=== PATIENT | female | born 1975 | race Caucasian/White ===

== ENCOUNTER 2022-11-04 08:14 | Outpatient (CLI) | payer OTHER, SELFPAY ==
--- NOTE | ~2022-11-04 | MM_ITS ---
EXAMINATION: MM screening cherelle BI w oral HISTORY: Screening mammogram TECHNIQUE: Craniocaudal and mediolateral oblique 3-D tomosynthesis images were obtained and synthetic 2-D images were generated. CAD analysis was submitted and interpreted. COMPARISON: No prior mammogram is available for comparison at this institution. BREAST PARENCHYMAL COMPOSITION: There are scattered areas of fibroglandular density. FINDINGS: RIGHT BREAST: There is a 4 mm mass in the middle third of the lower inner breast. An asymmetry is pre sent in the middle third of the lower breast on the mediolateral oblique view. LEFT BREAST: There is focal asymmetry in the anterior third of the lower breast. Asymmetry is also no bina in the middle third of the upper breast on the mediolateral oblique view. IMPRESSION: 1. Bilateral breast findings as above which may represent the patient's baseline however no compariso n is currently available. 2. Comparison with prior mammograms is necessary. BI-RADS Category 0: Incomplete: Needs comparison with prior mammograms. Reviewed, dictated and finalized at location A. IMPRESSION: 1. Bilateral breast findings as above which may represent the patient's baselin e however no comparison is currently available. 2. Comparison with prior mammograms is necessary. BI-RADS Category 0: Incomplete: Needs comparison with prior mammograms.
== END 2022-11-04 08:15 | disposition home or self-care (01) ==
LOC: ANHIMG 08:18
PROVIDERS: PCP Internal Medicine; Visit Provider Advanced Practice Midwife
DX: Z12.31 Encounter for screening mammogram for malignant neoplasm of breast (principal); R92.8 Other abnormal and inconclusive findings on diagnostic imaging of breast
CPT/HCPCS: 77063; 77067

== ENCOUNTER 2023-01-29 12:43 | Emergency (ER) | payer OTHER, SELFPAY ==
[2023-01-29] VITALS (13 sets, daily range): BP systolic 143–196; BP diastolic 87–125; PULSE 94–115; RESP 10–21; TEMP 36.8; O2SAT 94–100
--- NOTE | 2023-01-29 12:47 | ED.EPISTAXIS ---
HPI - Epistaxis General Chief complaint: Epistaxis Stated complaint: nose bleed, htn Time Seen by Provider: 01/29/23 12:46 History of Present Illness HPI Narrative: Patient is a 48-year-old female with history of thyroid disease, hyperlipidemia here with no straight and high blood pressure. She states she has had several nosebleeds in the past but usually self resolved after holding pressure for about 5 minutes. She states today approximately 1 hour prior to arrival to the emergency department she began having a nosebleed on the right side after blowing her nose. She held pressure and it did not stop so an ambulance was called. EN route they placed a clamp and put TXA in bilateral nares with improvement of bleeding. Of note she was quite hypertensive EN route with systolic blood pressure greater than 200. She denies history of hypertension. She has never required packing in this nares. Bleeding did begin on the right side. She notes since having COVID in 2020 she has always felt a foreign body sensation in right naris and does occasionally use a Q-tip to try to reach this foreign body sensation in her nose. No blood thinner use, no antihypertensive use. No trauma. No light headedness or shortness of breath. MD complaint: epistaxis Location: right nostril Onset (ago): hour(s) Duration: constant Treatment prior to arrival: nose pinching, head leaned forward, nasal clamp and other (txa) Related Data Home Medications Medication Instructions Recorded Confirmed cetirizine 10 mg tablet (Zyrtec) 10 mg PO DAILY PRN 08/19/22 09/23/22 fluticasone propionate 50 1 spray intranasal DAILY 08/19/22 09/23/22 mcg/actuation nasal spray,suspension (Flonase Allergy Relief) levothyroxine 75 mcg tablet 75 mcg PO DAILY 08/19/22 09/23/22 Allergies Allergy/AdvReac Type Severity Reaction Status Date / Time No Known Allergies Allergy Verified 09/23/22 10:54 Review of Systems Review of Systems: CONSTITUTIONAL: Denies fever, chills, or sweats. EYES: Denies visual changes, redness, or discharge. ENT: nose bleed on right side, no sore throat, or otalgia. CARDIOVASCULAR: Denies chest pain, palpitations, or edema. RESPIRATORY: Denies cough or dyspnea. GASTROINTESTINAL: Denies abdominal pain, nausea, vomiting, or diarrhea. GENITOURINARY: Denies dysuria or hematuria. SKIN: Denies rash or itching. MUSCULOSKELETAL: Denies back pain, joint pain, or myalgia. NEUROLOGIC: Denies headache, numbness, or weakness. PSYCHIATRIC: Denies anxiety or depression. [facility] Past Medical History Medical History Allergies Hypothyroidism (acquired) Surgical History Surgical History History of Family History Family History Father Diabetes mellitus Hypertension Mother Cerebrovascular accident Social History Social History Smoking status: Never smoker Second hand tobacco smoke exposure: No Alcohol intake: never Substance use: never Lack of Transportation: No Lack of Food: Never True Current Housing: I Have Housing Concerned About Future Housing: No Difficulty Paying Gas/Electric Bills: No Difficulty Paying for Meds: No Currently Unemployed: No Education: High School Diploma/GED Difficulty w/ Childcare or Family Care: No Exam Narrative: GENERAL: Well-appearing, well-nourished, and in no acute distress. HEAD: Normocephalic, atraumatic. EYES: PERRLA and EOMI. ENT: clots present in right nares, faint active bleeding down posterior pharynx. Mucous membranes moist. NECK: Supple. CHEST: Clear to auscultation. No respiratory distress. HEART: Regular rate and rhythm. No murmur heard. Normal peripheral pulses. ABDOMEN: Soft, nontender, nondistended, normal active bowel soun
[2023-01-29] MEDS: LIDOCAINE, EPINEPHRINE, TETRACAINE VISCOUS SOLN 3 ML TOPICAL (13:30)
[2023-01-29] MEDS: OXYMETAZOLINE HCL 0.05% NAS 15 ML BTL (*BKC) 1 SPRAY NASAL (13:30)
[2023-01-29 13:55] LABS: Basophils Absolute Auto 0.1 K/mm3 (0.0-0.1); Basophils Percent Auto 0.6 % (0.2-1.2); Eosinophils Absolute Auto 0.3 K/mm3 (0-0.3); Eosinophils Percent Auto 3.3 % (0-4.4); Hematocrit 38.3 % (37.0-47.0); Hemoglobin 12.4 g/dL (12.0-15.0); Immature Granulocyte Absolute 0.03 K/mm3 (0.00-0.031); Immature Granulocyte Percent A 0.3 % (0-0.5); Lymphocytes Absolute Auto 1.38 K/mm3 (0.9-3.2); Lymphocytes Percent Auto 15.9 % (18.3-44.2); Mean Corpuscular HGB Conc 32.4 g/dl (32-36); Mean Corpuscular Hemoglobin 30.4 pg (26-34); Mean Corpuscular Volume 93.9 fl (80-100); Mean Platelet Volume 12.4 fl (7.4-10.4); Monocytes Absolute Auto 0.4 K/mm3 (0.1-0.6); Monocytes Percent Auto 4.5 % (2.6-8.5); Neutrophils Absolute Auto 6.5 K/mm3 (1.3-6.7); Neutrophils Percent Auto 75.4 % (45.5-73.1); Platelet Count Result 208 k/mm3 (150-375); Red Blood Count 4.08 M/mm3 (4.2-5.4); Red Cell Distribution Width 13.9 % (11.5-14.5); White Blood Count 8.7 K/mm3 (4.5-10.0)
[2023-01-29 14:08] LABS: Alanine Aminotransferase 24 U/L (6-35); Alkaline Phosphatase 96 U/L (38-126); Anion Gap 7 mmol/L (8-16); Aspartate Amino Transferase 26 U/L (14-36); Bilirubin,Total 0.3 mg/dL (0.2-1.3); Blood Urea Nitrogen 13 mg/dL (7-17); Calcium 8.8 mg/dL (8.4-10.2); Carbon Dioxide 24 mmol/L (22-30); Chloride 104 mmol/L (98-107); Estimated Glomerular Filt Rate > 60; Glucose 240 mg/dL (65-110); Potassium 3.8 mmol/L (3.4-5.0); Sodium 135 mmol/L (137-145)
[2023-01-29] MEDS: ONDANSETRON INJ 4 MG/2 ML VIAL IV PUSH (14:52)
[2023-01-29] MEDS: MORPHINE SULFATE (*CRX) 4 MG/ML INJ IV PUSH (14:52)
[2023-01-29] MEDS: LABETALOL HCL INJ 100 MG/20 ML VIAL 10 MG IV PUSH (15:27)
--- NOTE | 2023-01-29 15:44 | WPDCN ---
Assessment and Plan Assessment and plan (1) Right-sided epistaxis: Code(s): R04.0 - Epistaxis Status: Acute Plan afrin bid to tid until follow up. Follow up early next week, wednesday is good. No strenuous activity, nasal saline spray 4-6 times per day. No right side nose blowing. novapak placed as well. HPI Data of Consult Date/Time: 01/29/23 15:44 Primary Care Provider: Eyad Roca DO Consult Narrative Narrative: Shaina Huynh is a 48 year old female with epistaxis. Review of Systems Review of Systems: All systems reviewed & are unremarkable except as noted in HPI and below PMFSH Past Medical History Medical History Allergies Hypothyroidism (acquired) Surgical History Surgical History History of Family History Family History Father Diabetes mellitus Hypertension Mother Cerebrovascular accident Social History Social History Smoking status: Never smoker Second hand tobacco smoke exposure: No Alcohol intake: never Substance use: never Lack of Transportation: No Lack of Food: Never True Current Housing: I Have Housing Concerned About Future Housing: No Difficulty Paying Gas/Electric Bills: No Difficulty Paying for Meds: No Currently Unemployed: No Education: High School Diploma/GED Difficulty w/ Childcare or Family Care: No Meds Home Medications and Allergies Home Medications Medication Instructions Recorded Confirmed Type cetirizine 10 mg tablet (Zyrtec) 10 mg PO DAILY PRN 08/19/22 09/23/22 History fluticasone propionate 50 1 spray intranasal DAILY 08/19/22 09/23/22 History mcg/actuation nasal spray,suspension (Flonase Allergy Relief) levothyroxine 75 mcg tablet 75 mcg PO DAILY 08/19/22 09/23/22 History metformin 500 mg tablet 500 mg PO BID #180 tabs 08/19/22 09/23/22 Rx atorvastatin 10 mg tablet 10 mg PO QHS #90 tabs 09/23/22 09/23/22 Rx cholecalciferol (vitamin D3) 50 50 mcg PO DAILY #90 caps 09/23/22 09/23/22 Rx mcg (2,000 unit) capsule Allergies Allergy/AdvReac Type Severity Reaction Status Date / Time No Known Allergies Allergy Verified 09/23/22 10:54 Vital Signs Vital Signs - 24 hr 01/29/23 12:54 01/29/23 13:01 01/29/23 13:47 Temperature 36.8 C 36.8 C Pulse Rate 106 H 106 H Respiratory Rate 16 Blood Pressure 167/108 H 196/113 H Pulse Oximetry 98 97 98 Oxygen Delivery Room Air 01/29/23 14:00 01/29/23 14:15 01/29/23 14:30 Temperature Pulse Rate Respiratory Rate Blood Pressure Pulse Oximetry 98 97 98 Oxygen Delivery 01/29/23 14:45 01/29/23 14:56 01/29/23 15:16 Temperature Pulse Rate 115 H 105 H Respiratory Rate 20 17 Blood Pressure 194/125 H Pulse Oximetry 99 99 96 Oxygen Delivery 01/29/23 15:18 01/29/23 15:24 Temperature Pulse Rate 105 H 107 H Respiratory Rate 10 L 21 H Blood Pressure 181/111 H 163/98 H Pulse Oximetry 98 94 Oxygen Delivery Exam Narrative: balloon removed, bleeding vessel controlled with cautery, about 2cm back low septum right side, see procedure note. Results Labs 01/29/23 13:44 01/29/23 13:44 Labs: Short CBC 01/29/23 Range/Units 13:44 WBC 8.7 (4.5-10.0) K/mm3 Hgb 12.4 (12.0-15.0) g/dL Hct 38.3 (37.0-47.0) % Plt Count 208 (150-375) k/mm3 BMP 01/29/23 13:44 Sodium 135 L Potassium 3.8 Chloride 104 Carbon Dioxide 24 BUN 13 Creatinine 0.60 L Glucose 240 H Calcium 8.8 Liver Function 01/29/23 Range/Units 13:44 Total Bilirubin 0.3 (0.2-1.3) mg/dL AST 26 (14-36) U/L ALT 24 (6-35) U/L Alkaline Phosphatase 96 (38-126) U/L Albumin 4.0 (3.5-5.1) g/dL
--- NOTE | 2023-01-29 15:44 | WPDPROCEDUR ---
Procedures Epistaxis Control Time out performed: Yes Nostril: right Nose prepped with: lidocaine and oxymetazoline Direct inspection: yes Clots removed by: suction Cautery used: silver nitrate Patient tolerated procedure: well Epistaxis Comment: complex cautery multiple rounds of cautery and packing. No bleeding following procedure
--- NOTE | 2023-01-29 16:33 | PC.NURSE ---
DC instructions reviewed with pt and she voiced positive understanding regarding RXs, DC and f/u. No active bleeding at this time.
== END 2023-01-29 17:00 | disposition home or self-care (01) ==
PROVIDERS: Emergency Provider Student in an Organized Health Care Education/Training Program; PCP Internal Medicine
DX: R04.0 Epistaxis (principal); I10 Essential (primary) hypertension; E03.9 Hypothyroidism, unspecified; E78.5 Hyperlipidemia, unspecified; Z86.16 Personal history of COVID-19
CPT/HCPCS: 30903; 36415; 80053; 85025; 96374; 96375; 99284; A9270; J2270; J2405

== ENCOUNTER 2023-02-11 12:19 | Outpatient (CLI) | payer OTHER, SELFPAY ==
--- NOTE | ~2023-02-11 | MMUS_ITS ---
EXAMINATION: MM diagnostic cherelle BI w oral, US breast RT limited, US breast LT complete HISTORY: Follow-up bilateral breast asymmetries TECHNIQUE: Additional 3-D tomosynthesis images of the breasts were performed and synthetic 2-D images were generated. CAD analysis was submitted and interpreted. High resolution Limited right and comple te left breast ultrasound was performed. COMPARISON: Comparison to multiple prior studies sequentially, with oldest reviewed study dated 11/25 BREAST PARENCHYMAL COMPOSITION: Breast composed of scattered areas of fibroglandular density FINDINGS: MAMMOGRAPHIC FINDINGS: There are is a small mass in the lower inner quadrant of the right breast. Focal asymmetry in the lef t breast is less dense with spot compression views. No discrete mass or architectural distortion iden tified. ULTRASOUND: Complete US of all 4 quadrants of the left breast and retroareolar region and limited right breast ul trasound was reviewed. Normal heterogeneous echotexture without solid or cystic mass. IMPRESSION: 1. Probable benign mass lower inner quadrant of the right breast without sonographic correlate. No ev idence for malignancy in the left breast. 2. Recommend 6 month follow-up diagnostic right mammogram BI-RADS category 3, probably benign findings. Reviewed, dictated and finalized at location A. IMPRESSION: 1. Probable benign mass lower inner quadrant of the right breast without sonogr aphic correlate. No evidence for malignancy in the left breast. 2. Recommend 6 month follow-up diagnostic right mammogram BI-RADS category 3, probably benign findings. IMPRESSION: 1. Probable benign mass lower inner quadrant of the right breast without sonogr aphic correlate. No evidence for malignancy in the left breast. 2. Recommend 6 month follow-up diagnostic right mammogram BI-RADS category 3, probably benign findings.
== END 2023-02-11 12:20 | disposition home or self-care (01) ==
PROVIDERS: PCP Internal Medicine; Visit Provider Obstetrics & Gynecology Gynecology
DX: R92.8 Other abnormal and inconclusive findings on diagnostic imaging of breast (principal)
CPT/HCPCS: 76641; 76642; 77062; 77066; G0279

== ENCOUNTER 2023-08-20 09:53 | Outpatient (CLI) | payer OTHER, SELFPAY ==
--- NOTE | ~2023-08-20 | MMUS_ITS ---
EXAMINATION: MM diagnostic cherelle RT w oral, US breast RT limited HISTORY: Follow-up right breast masses TECHNIQUE: Additional 3-D tomosynthesis images of the right breast were performed and synthetic 2-D i mages were generated. CAD analysis was submitted and interpreted. High resolution Limited right breas t ultrasound was performed. COMPARISON: Comparison to multiple prior studies sequentially, with oldest reviewed study dated 11/25. BREAST PARENCHYMAL COMPOSITION: Not dense: There are scattered areas of fibroglandular density. FINDINGS: MAMMOGRAPHIC FINDINGS: There are small masses in the upper central aspect of the right breast near the areola in the central medial aspect of the right breast, middle third. There are lymph nodes in the right axillary region. ULTRASOUND: Limited right breast ultrasound: At 1:00, 6 cm from the nipple there is a 5 mm intramammary lymph nod e. At 2:00, 5 cm from the nipple there is a 5 mm cyst. At 10:00 near the nipple there is a 6 mm minim ally complicated cyst corresponding to the mammographic finding. No suspicious masses are identified to suggest malignancy. IMPRESSION: 1. No evidence for malignancy in the right breast. Benign findings. 2. Routine yearly screening mammogram and regular clinical breast examination are recommended. BI-RADS Category 2: Benign finding(s). Reviewed, dictated and finalized at location A. 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 No evidence for malignancy in the right breast. Benign findings. 2. Routine yearly screening mammogram and regular clinical breast examination a re recommended. BI-RADS Category 2: Benign finding(s).
== END 2023-08-20 09:54 | disposition home or self-care (01) ==
LOC: ANHIMG 09:56
PROVIDERS: PCP Internal Medicine; Visit Provider Obstetrics & Gynecology Gynecology
DX: N63.10 Unspecified lump in the right breast, unspecified quadrant (principal)
CPT/HCPCS: 76642; 77061; 77065; G0279

== ENCOUNTER 2024-05-31 09:43 | Outpatient (CLI) | payer OTHER, SELFPAY ==
--- NOTE | ~2024-05-31 | MM_ITS ---
EXAMINATION: MM screening cherelle BI w oral HISTORY: Screening TECHNIQUE: Craniocaudal and mediolateral oblique 3-D tomosynthesis images were obtained and synthetic 2-D images were generated. CAD analysis was submitted and interpreted. COMPARISON: Comparison to multiple prior studies sequentially, with oldest reviewed study dated 11/25. BREAST PARENCHYMAL COMPOSITION: Not dense: There are scattered areas of fibroglandular density. FINDINGS: There is no evidence of suspicious mass, calcification, or architectural distortion to sugg est malignancy in either breast. There has been no suspicious interval change. IMPRESSION: 1. No mammographic evidence of malignancy. 2. Recommend routine screening mammography in one year. BI-RADS Category 1: Negative Reviewed, dictated and finalized at location B. 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
== END 2024-05-31 09:44 | disposition home or self-care (01) ==
LOC: ANHIMG 09:45
PROVIDERS: PCP Internal Medicine; Visit Provider Advanced Practice Midwife
DX: Z12.31 Encounter for screening mammogram for malignant neoplasm of breast (principal)
CPT/HCPCS: 77063; 77067

== ENCOUNTER 2024-06-18 20:50 | Emergency (ER) | payer OTHER, SELFPAY ==
[2024-06-18 21:01] VITALS: BP 186/107; PULSE 110; RESP 20; TEMP 36.4; O2SAT 97
[2024-06-18 22:47] LABS: Basophils Absolute Auto 0.1 K/mm3 (0.0-0.1); Basophils Percent Auto 0.6 % (0.2-1.2); Eosinophils Absolute Auto 0.3 K/mm3 (0-0.3); Hematocrit 35.8 % (37.0-47.0); Hemoglobin 11.5 g/dL (12.0-15.0); Immature Granulocyte Absolute 0.01 K/mm3 (0.00-0.031); Immature Granulocyte Percent A 0.1 % (0-0.5); Lymphocytes Absolute Auto 2.56 K/mm3 (0.9-3.2); Lymphocytes Percent Auto 26.9 % (18.3-44.2); Mean Corpuscular HGB Conc 32.1 g/dl (32-36); Mean Corpuscular Hemoglobin 29.1 pg (26-34); Mean Corpuscular Volume 90.6 fl (80-100); Mean Platelet Volume 12.8 fl (7.4-10.4); Monocytes Absolute Auto 0.5 K/mm3 (0.1-0.6); Monocytes Percent Auto 4.9 % (2.6-8.5); Neutrophils Absolute Auto 6.1 K/mm3 (1.3-6.7); Neutrophils Percent Auto 64.5 % (45.5-73.1); Platelet Count Result 227 k/mm3 (150-375); Red Blood Count 3.95 M/mm3 (4.2-5.4); Red Cell Distribution Width 13.1 % (11.5-14.5); White Blood Count 9.5 K/mm3 (4.5-10.0)
[2024-06-18 23:09] LABS: INR 0.9; Prothrombin Time 13.1 Seconds (11.1-14.7)
[2024-06-18 23:10] LABS: Partial Thromboplastin Time 23.6 Seconds (22.3-36.8)
[2024-06-18 23:29] LABS: Alanine Aminotransferase 31 U/L (6-35); Albumin Level 4.1 g/dL (3.5-5.1); Alkaline Phosphatase 102 U/L (38-126); Anion Gap 5 mmol/L (4-12); Aspartate Amino Transferase 38 U/L (14-36); Bilirubin,Total 0.4 mg/dL (0.2-1.3); Blood Urea Nitrogen 13 mg/dL (7-17); Calcium 9.1 mg/dL (8.4-10.2); Carbon Dioxide 26 mmol/L (22-30); Chloride 105 mmol/L (98-107); Estimated CRCL calculation 125 ml/min; Estimated Glomerular Filt Rate > 60; Glucose 138 mg/dL (65-110); Potassium 3.8 mmol/L (3.4-5.0); Sodium 136 mmol/L (137-145)
[2024-06-18 23:43] LABS: BEDSIDEPREGUCG Negative (Negative)
[2024-06-19 00:37] VITALS: BP 158/90; PULSE 92; RESP 15; O2SAT 99
--- NOTE | 2024-06-19 01:01 | ED_ITS ---
HPI - Female Genitourinary General Chief complaint: Vaginal Bleeding Stated complaint: passing blood clots x10 days Time Seen by Provider: 06/19/24 00:20 History of Present Illness HPI Narrative: Patient is a 49-year-old female who presents to the emergency department this evening due to concern for vaginal bleeding and passing 3 large clots at home. Patient states that she has been having issues with her menses for the past few years and she follows up with her OBGYN, Dr. Dow who recently put her on a new control which she started approximately 3-4 weeks ago. Patient states that this is to induced. As she was informed that if she goes long periods without having a menstrual cycle she is at high risk of developing cancer. Patient states that she started having this menses approximately 10 days ago. States that the 1st few days were heavy as usual and then for the past few days they have been very light. Patient states that her menses to be approximately 6-7 days. Today due to the large clots that she passed she called her OB GYNs office and informed him that she has come to the emergency department for further evaluation. Patient is completely asymptomatic denying any lightheadedness, dizziness, vision changes, abdominal pain, dysuria, hematuria, nausea, vomiting, chest pain or shortness of breath. No additional symptoms or concerns at this time. Related Data Home Medications ?Medication ?Instructions ?Recorded ?Confirmed ?Last Taken ?Type cetirizine 10 mg tablet (Zyrtec) 10 mg PO DAILY PRN 08/19/22 01/31/24 Unknown History lactase 3,000 unit tablet (Lactaid) 3,000 unit PO ONCE PRN 03/31/23 01/31/24 Unknown History fluticasone propionate 50 1 spray intranasal DAILY PRN 01/31/24 01/31/24 Unknown History mcg/actuation nasal spray,suspension (Flonase Allergy Relief) Allergies Allergy/AdvReac Type Severity Reaction Status Date / Time No Known Allergies Allergy Verified 06/18/24 21:59 Review of Systems 2 Review of Systems: All systems are reviewed and are negative unless stated otherwise in the HPI. [facility] Past Medical History Medical History Hypothyroidism (acquired) Allergies Surgical History Surgical History History of Family History Family History Father Diabetes mellitus Hypertension Mother Cerebrovascular accident Son Undescended testes Social History Social History Smoking status: Never smoker Second hand tobacco smoke exposure: No Alcohol intake: never Substance use: never Do You Feel Safe in your Home?: Yes Lack of Transportation: No Lack of Food: Never True Current Housing: I Have Housing Concerned About Future Housing: No Difficulty Paying Gas/Electric Bills: No Difficulty Paying for Meds: No Currently Unemployed: No Education: High School Diploma/GED Difficulty w/ Childcare or Family Care: No Exam 2 Narrative: General: Alert, awake, afebrile, in no acute distress. HEENT: PERRL, no rhinorrhea, no post nasal drip, oropharynx clear. Neck: Trachea midline, no JVD, no lymphadenopathy. Cardiovascular: Regular rate and rhythm, no murmurs, rubs or gallops, no peripheral edema. Respiratory: Clear to auscultation bilaterally, no tachypnea, no wheezing, no rhonchi, no rubs, no respiratory distress. Abdomen: Soft, nontender, nondistended, no rebound, no guarding, no peritoneal signs. Pelvic: Exam performed with the presence of female nurse teleprinter installer revealing normal female external genitalia, minimal amount of blood noted in the vaginal canal, no blood clots noted, no active hemorrhage. Musculoskeletal: No joint swelling or deformity, normal muscle tone. Skin: No rashes or petechia, no signs of infection. Psychiatric: Alert and oriented, normal behavior and judgment for situation. Neurological: Alert and oriented to person, place, and time. Follows all commands. No focal deficits, speech is clear and fluent. Course Vital Signs Vital signs: Vital Signs Temperature 97.6 F 06/18/24 21:01 Pulse Rate 110 H 06/18/24 21:01 Respiratory Rate 20 06/18/24 21:01 Blood Pressure 186/107 H 06/18/24 21:01 Pulse Oximetry 97 06/18/24 21:01 Temperature 97.6 F 06/18/24 21:01 Pulse Rate 92 06/19/24 00:37 Respiratory Rate 15 06/19/24 00:37 Blood Pressure 158/90 H 06/19/24 00:37 Pulse Oximetry 99 06/19/24 00:37 MDM - Female Genitourinary MDM Narrative Medical decision making narrative: The patient was evaluated by myself in the emergency department. History is obtained from patient who is an independent historian and physical exam was performed. External medical records were reviewed at this time. IV was established and pertinent tests were ordered. Laboratory results obtained revealing no acute process. Stable hemoglobin at 11.5. Patient was informed of these findings at bedside and given her stable vital signs, hemoglobin and normal pelvic exam she was informed that she can safely follow-up with her OBGYN as an outpatient. Patient is agreeable with this plan. Differential diagnosis considerations include dysfunctional uterine bleeding, blood loss anemia, hypovolemic shock. Comorbidities impacting this visit include recent change and control. I have evaluated and discussed social determinants of health with the patient that could potentially impact subsequent diagnosis and treatment plans. On repeat assessment of the patient, reevaluation revealed that the patient is doing well and is in no acute distress. Patient symptoms have improved since she arrived to our emergency department. Repeat vital signs were all reviewed and noted to be stable. Differential diagnosis and treatment plan were discussed with the patient at bedside. Patient agrees with discussion and after shared medical decision making agrees with discharge. All questions were answered to the patient's satisfaction. Patient will follow up with OBGYN in 3-5 days. Patient was provided with strict return precautions and instructed to return to the emergency department if any new or worsening symptoms develop. The patient was discharged in stable condition. Lab Data 06/18/24 22:41 06/18/24 22:41 Labs: Lab Results 06/18/24 06/18/24 06/18/24 Range/Units 22:41 22:52 23:41 WBC 9.5 (4.5-10.0) K/mm3 RBC 3.95 L (4.2-5.4) M/mm3 Hgb 11.5 L (12.0-15.0) g/dL Hct 35.8 L (37.0-47.0) % MCV 90.6 (80-100) fl MCH 29.1 (26-34) pg MCHC 32.1 (32-36) g/dl RDW 13.1 (11.5-14.5) % Plt Count 227 (150-375) k/mm3 MPV 12.8 H (7.4-10.4) fl Immature Gran % (Auto) 0.1 (0-0.5) % Neut % (Auto) 64.5 (45.5-73.1) % Lymph % (Auto) 26.9 (18.3-44.2) % Churchill % (Auto) 4.9 (2.6-8.5) % Eos % (Auto) 3.0 (0-4.4) % Baso % (Auto) 0.6 (0.2-1.2) % Lymph # (Auto) 2.56 (0.9-3.2) K/mm3 Churchill # (Auto) 0.5 (0.1-0.6) K/mm3 Eos # (Auto) 0.3 (0-0.3) K/mm3 Baso # (Auto) 0.1 (0.0-0.1) K/mm3 Abs Immat Gran (auto) 0.01 (0.00-0.031) K/mm3 Absolute Neuts (auto) 6.1 (1.3-6.7) K/mm3 Absolute Nucleated RBC 0.000 (0.0-0.012) K/mm3 Nucleated RBC % 0.0 (0.0-0.2) % PT 13.1 (11.1-14.7) Seconds INR 0.9 APTT 23.6 (22.3-36.8) Seconds Sodium 136 L (137-145) mmol/L Potassium 3.8 (3.4-5.0) mmol/L Chloride 105 (98-107) mmol/L Carbon Dioxide 26 (22-30) mmol/L Anion Gap 5 (4-12) mmol/L BUN 13 (7-17) mg/dL Creatinine 0.60 L (0.7-1.0) mg/dL Estim Creat Clear Calc 125 ml/min Estimated GFR > 60 (59 - ) Glucose 138 H (65-110) mg/dL Calcium 9.1 (8.4-10.2) mg/dL Total Bilirubin 0.4 (0.2-1.3) mg/dL AST 38 H (14-36) U/L ALT 31 (6-35) U/L Alkaline Phosphatase 102 (38-126) U/L Total Protein 7.0 (6.3-8.2) g/dL Albumin 4.1 (3.5-5.1) g/dL POC Urine HCG, Qual Negative (Negative) Discharge Plan Discharge Clinical Impression: Abnormal vaginal bleeding Patient Disposition: Home, Self-Care Condition: Stable Instructions: Antibiotic Form, Abnormal (Dysfunctional) Uterine Bleeding (ED) Additional Instructions: Please follow-up with your OBGYN within the next 3-5 days. Return to the emergency department if any new or worsening symptoms develop. Patient Language: Estonian Prescriptions: No Action (DME) blood-glucose meter [Accu-Chek Guide Glucose Meter] Misc See Rx Instructions .Route Qty: 1 0RF Rx Instructions: USE TO CHECK BS BID AND PRN cetirizine [Zyrtec] 10 mg tablet 10 mg PO DAILY PRN fluticasone propionate [Flonase Allergy Relief] 50 mcg/actuation spray,suspension 1 spray intranasal DAILY PRN Rx Instructions: administer into each nostril lactase [Lactaid] 3,000 unit tablet 3,000 unit PO ONCE PRN Rx Instructions: administer with meals and/or snacks Rybelsus 14 mg tablet 14 mg PO DAILY Qty: 90 1RF Afrin (oxymetazoline) 0.05 % mist 2 spray intranasal Q12H PRN (Reason: nasal congestion) 5 Days Qty: 15 0RF Saline Mist 0.65 % aerosol,spray 2 spray intranasal TID PRN (Reason: dry nasal passages) 5 Days Qty: 45 0RF metformin 500 mg tablet 500 mg PO BID Qty: 180 1RF levothyroxine 75 mcg tablet 75 mcg PO DAILY Qty: 90 1RF atorvastatin 10 mg tablet See Rx Instructions .ROUTE .COMPLEX Qty: 90 1RF Dose Instruction: TAKE 1 TABLET BY MOUTH EVERYDAY AT BEDTIME Rx Instructions: TAKE 1 TABLET BY MOUTH EVERYDAY AT BEDTIME cholecalciferol (vitamin D3) 125 mcg (5,000 unit) capsule 125 mcg PO DAILY Qty: 90 3RF Follow-up/Referrals: Argelia Stanley MD [Physician] - 3 Days Eyad Roca DO [Primary Care Provider] - Time of Disposition: 01:11
--- OUTSIDE RECORDS SUMMARY | 2024-06-26 02:23 | XMS_ITS | Encounter Summary ---
Author Organization [facility] Address [address] [place] [address] Care Team Providers Care It Program Auditor Name Role Phone Noris Bob MD Primary Care Provider [phone] Reason for Visit * Reason Comments Follow-up Shaina Huynh is a 46 yea r old female here for post covid-19 follow up. Karlene Smith MA Encounter Details Date Type Department Care Team (Late st Contact Info) Description 12/25/2021 10:30 AM CDT Office Visit [facility] - Family Medicine [address] [place] [address] Dawn Sebastian, PAChiquisC [address] [place] [phone] Pneumonia due to COVID-19 virus (Primary Dx); Screen for colon cancer; Prediabetes; Murmur Social History Tobacco Use Types Packs/Day Years Used Date Smoking Tobacco: Never Smokeless Tobacco: Never Alcohol Use Standard Drinks/Week Comments No 0 (1 standard drink = 0.6 oz pur e alcohol) PHQ-2 Answer Date Recorded PHQ2 TOTAL SCORE 0 08/12/2021 Sex and Gender Information Value Date Recorded Sex Assigned at Not on file Gender Identity Not on file Sexual Orientation Not on file documented as of this encounter Last Filed Vital Signs Vital Sign Reading Time Taken Comments Blood Pressure 107/74 12/25/2021 10:22 AM CDT Pulse 82 12/25/2021 10:22 AM CDT Temperature 36.9 ??C (98.5 ??F) 12/25/2021 10:22 AM C DT Respiratory Rate - - Oxygen Saturation 98% 12/25/2021 10:22 AM CDT Inhaled Oxygen Concentration - - Weight 128.4 kg (283 lb) 12/25/2021 10:22 AM CDT Height 171.5 cm (5' 7.5 ) 12/25/2021 10:22 AM CD T Body Mass Index 43.67 12/25/2021 10:22 AM CDT documented in this encounter Progress Notes * Dawn Sebastian PA-C - 12/25/2021 10:48 AM CDT SUBJECTIVE: Shaina Huynh is a 46 year old female who complains of Chief Complaint Patient presents with ??? Follow-up Shaina Huynh is a 46 year old female here for post covid-19 follow up. Karlene Smith MA HPI: Having seasonal allergies. Tree outside her home makes her cough. Will go away with inhaler. Also taking flonase and zyrtec or claritin daily. Using inhaler several times a week sometimes 2-3 x daily. No wheezing, sob, cp Still taking metformin Patient Active Problem List: Hypothyroidism Seasonal allergies Prediabetes On home O2 Pneumonia due to COVID-19 virus Dehydration Elevated AST (SGOT) Hyperlipidemia Hypoxia Lipoprotein deficiency disorder Physical deconditioning Allergies: Patient has no known allergies. PMHx, Surgical hx, family Hx reviewed. Social History Tobacco Use ??? Smoking status: Never Smoker ??? Smokeless tobacco: Never Used Substance Use Topics ??? Alcohol use: No ??? Drug use: No Review of Systems: Constitutional: No fevers, chills Cardiovascular: No chest pain, palpitations Respiratory: No shortness of breath, cough, wheezing Gastrointestinal: No nausea, vomiting, abdominal pain, change in bowel habits, black or bloody stools OBJECTIVE: BP 107/74 Pulse 82 Temp 98.5 ??F (36.9 ??C) (Oral) Ht 1.715 m (5' 7.5 ) Wt 128.4 kg (283 lb) SpO2 98% BMI 43.67 kg/m2 Height: 171.5 cm (5' 7.5 ) BP Readings from Last 3 Encounters: 12/25/21 107/74 08/12/21 122/70 06/13/21 133/80 Wt Readings from Last 3 Encounters: 12/25/21 128.4 kg (283 lb) 08/12/21 127.2 kg (280 lb 6.4 oz) 06/13/21 119.3 kg (263 lb) General appearance - alert, well appearing, and in no distress Mental Status -alert and oriented ENT - normal canals, normal TM B, normal orophayrgeal mucosa Neck - supple, no carotid bruits Lungs - clear to auscultation, no wheezes, rales or rhonchi, symmetric air entry, non-labored resp effort Heart - normal rate, regular rhythm, normal S1, S2, 2/6 NIMO Extremities - peripheral pulses normal, no pedal edema Skin - The visualized skin no for new lesions, rash, sores, hair loss ASSESSMENT AND PLAN: ICD-10-CM 1. Pneumonia due to COVID-19 virus U07.1 COMPLETE PFT J12.82 Was given inhaler after covid. Still using it pretty frequently. Discussed getting PFT to see if she needs daily inhaler. 2. Screen for colon cancer Z12.11 [id number] COLOGUARD TEST *Associate with Z12.11 OR Z12.12 Dx Codes* still needs pap. Will get names of obgyn here in office on [address] out. Also due for cherelle in February 3. Prediabetes R73.03 HEMOGLOBIN A1C - POINT OF CARE (HgbA1C) Recent Labs Component Name 12/25/21 1111 05/30/21 1147 02/14/21 1009 06/29/17 0913 12/23/16 0926 06/17/16 1351 HGBA1C 6.1 6.3* 6.3 - 5.2 5.5 EAG - - - - 103 111 - = values in this interval not displayed. 4. Murmur R01.1 Will reeval this in 4 months. No symptoms currently. Orders Placed This Encounter ??? [id number] COLOGUARD TEST *Associate with Z12.11 OR Z12.12 Dx Codes* ??? COMPLETE PFT ??? HEMOGLOBIN A1C - POINT OF CARE (HgbA1C) There are no Patient Instructions on file for this visit. There are no discontinued medications. Current Outpatient Medications Medication Sig Dispense Refill ??? acetaminophen (TYLENOL) 500 MG tablet Take 1,000 mg by mouth as needed ??? albuterol HFA (PROVENTIL; VENTOLIN; PROAIR) 108 (90 Base) MCG/ACT inhaler Inhale 2 (two) puffs by mouth every 4 hours as needed 6.7 g 1 ??? blood glucose test strip Use 1 (one) strip 2 times daily 100 strip 3 ??? Cetirizine HCl (ZYRTEC PO) ??? Lancets (ONETOUCH DELICA PLUS 33G EXTRA FINE LANCET) Use 1 device 2 times daily 300 Each 0 ??? levothyroxine (SYNTHROID) 75 MCG tablet TAKE 1 TABLET BY MOUTH EVERY DAY 90 tablet 3 ??? metFORMIN (GLUCOPHAGE) 500 MG tablet TAKE 1 TABLET BY MOUTH TWICE A DAY WITH MORNING AND EVENING MEAL 180 tablet 2 No current facility-administered medications for this visit. Return in about 4 months (around 04/26/2022). documented in this encounter Plan of Treatment Not on file documented as of this encounter Goals Goal Patient Goal Type Associated Problems Recent Progress Patient-Stated? Author Have labs drawn Lifestyle No Kristel Lainez documented as of this encounter Procedures Procedure Name Priority Date/Time Associated Diagnosis Comments HEMOGLOBIN A1C - POINT OF CARE (AMB) Routine 12/25/2021 11:11 AM CDT Prediabetes documented in this encounter Results * HEMOGLOBIN A1C - POINT OF CARE (HgbA1C) (12/25/2021 11:11 AM CDT) Hemoglobin A1c POCT 6.1 % [facility] Expiration Date [id number] [facility] Lot # [id number] [facility] QC Verified Yes Yes [facility] Blood BLOOD SPECIMEN / Unknown 12/25/2021 11:11 AM CDT Dawn Sebastian PA-C LAB - POINT OF CA RE ORDERABLES [facility] [address] [phone] documented in this encounter Visit Diagnoses Diagnosis Pneumonia due to COVID-19 virus- Primary Screen for colon cancer Special screening for malignant neoplasms, colon Prediabetes Other abnormal glucose Murmur Undiagnosed cardiac murmurs documented in this encounter Care Teams It Program Auditor Relationship Specialty Start Date End Date Noris Bob MD [address] [place] [address] PCP - General Family Medicine 04/23/16 10/25/22 documented as of this encounter
--- OUTSIDE RECORDS SUMMARY | 2024-06-26 02:23 | XMS_ITS | Encounter Summary ---
Author Organization [facility] Address [address] [address] Care Team Providers Care Feller Seam Operator Name Role Phone Noris Bob MD Primary Care Provider [phone] Reason for Visit * Reason Comments Refill Request Encounter Details Date Type Department Care Team (Late st Contact Info) Description 11/02/2021 Refill [facility] - Family Medicine [address] [place] [address] Noris Bob MD [address] [place] [phone] Refill Request Social History Tobacco Use Types Packs/Day Years [...] on file documented as of this encounter Miscellaneous Notes * Telephone Encounter - Marsha De Jesus LPN - 11/03/2021 9:24 AM CDT LRF :08/02 RONEL :08/12 Next OV : 12/10 documented in this encounter Plan of Treatment Not on file documented as of this encounter Goals Goal Patient Goal Type Associated Problems Recent Progress Patient-Stated? Author Have labs drawn Lifestyle No Kristel Lainez documented as of this encounter Visit Diagnoses Not on filedocumented in this encounter Care Teams Feller Seam Operator Relationship Specialty Start Date End Date Noris Bob MD [address] [place] [address] PCP - General Family Medicine 04/23/16 10/25/22 documented as of this encounter
--- OUTSIDE RECORDS SUMMARY | 2024-06-26 02:23 | XMS_ITS | Referral Summary ---
Author Organization [facility] Address [address] [place] [address] Care Team Providers Care Drilling Engineering Manager Name Role Phone Noris Bob MD Primary Care Provider [phone] Source Comments [facility],non-owned Affiliates and Associated Physician Practices is amultiple site organization consisting of ambulatory clinics and hospital sitesin [place], [place], [place] and [place]. This disclosure is being madepursuant to the Care Everywhere program and may not contain all information available regarding this patient. Last updated 18.[facility] Allergies No known active allergies Medications * Be aware that medications may not be up to date on this document. Alwaysverify current medications with the patient. Medication Sig Dispensed Refills Start Date End Date Status Cetirizine HCl (ZYRTEC PO) Active blood glucose test strip Use 1 (one) strip 2 times daily 100 strip 3 05/14/2021 Active Lancets (ONETOUCH DELICA PLUS 33G EXTRA FINE LANCET) Use 1 device 2 times daily 300 Each 05/28/2021 Active acetaminophen (TYLENOL) 500 MG tablet Take 1,000 mg by mouth as needed 05/13/2021 Active albuterol HFA (PROVENTIL; VENTOLIN; PROAIR) 108 (90 Base) MCG/ACT inhaler Inhale 2 (two) puffs by mouth every 4 hours as needed 6.7 g 1 05/30/2021 Active metFORMIN (Glucophage) 500 MG tabletIndications:Pre diabetes TAKE 1 TABLET BY MOUTH TWICE A DAY WITH MORNING AND EVENING MEAL 60 tablet 09/21/2022 Active levothyroxine (Synthroid) 75 MCG tablet TAKE 1 TABLET BY MOUTH EVERY DAY 90 tablet 1 10/26/2022 Active Active Problems Problem Noted Date Diagnosed Date Hypoxia 12/25/2021 Physical deconditioning 12/25/2021 On home O2 06/13/2021 Pneumonia due to COVID-19 virus 06/13/2021 Elevated AST (SGOT) 04/14/2021 Seasonal allergies 02/14/2021 Prediabetes 02/14/2021 Hypothyroidism 08/30/2015 Lipoprotein deficiency disorder 11/11/2013 Overview (12/25/2021): Lipoprotein deficiency Hyperlipidemia 03/18/2011 Overview (12/25/2021): Hyperlipidemia LDL goal < 130 Resolved Problems Problem Noted Date Diagnosed Date Resolved Date Dehydration 04/14/2021 01/08/2022 BMI 40.0-44.9, adult 09/29/2016 021 Abnormal glucose 09/29/2016 02/14/2021 Obesity 08/27/2014 02/14/2021 Overview (02/14/2021): Note: Morbid Immunizations Name Administration Dates Next Due FLU VACCINE QUAD IIV4 PF ID 05/13/2016 INFLUENZA VACCINE, QUADR. (F LUZONE; FLULAVAL; FLUARIX; AFLURIA QUADRIVALENT; 6MO+), 0.5 ML (IIV4) 08/30/2015 TDAP (7yrs+) 03/10/2016,02/27/2016 Td (Adult), 2 Lf Tetanus Toxoid, Adsorbed, Pf Social History Tobacco Use Types Packs/Day Years Used Date Smoking Tobacco: Never Smokeless Tobacco: Never Alcohol Use Standard Drinks/Week Comments No 0 (1 standard drink = 0.6 oz pur e alcohol) PHQ-2 Answer Date Recorded PHQ2 TOTAL SCORE 0 08/12/2021 Sex and Gender Information Value Date Recorded Sex Assigned at Not on file Gender Identity Not on file Sexual Orientation Not on file Last Filed Vital Signs Vital Sign Reading Time Taken Comments Blood Pressure 107/74 12/25/2021 10:22 AM CDT Pulse 82 12/25/2021 10:22 AM CDT Temperature 36.9 ??C (98.5 ??F) 12/25/2021 10:22 AM C DT Respiratory Rate 18 04/08/2021 3:13 PM CDT Oxygen Saturation 98% 12/25/2021 10:22 AM CDT Inhaled Oxygen Concentration - - Weight 128.4 kg (283 lb) 12/25/2021 10:22 AM CDT Height 171.5 cm (5' 7.5 ) 12/25/2021 10:22 AM CD T Body Mass Index 43.67 12/25/2021 10:22 AM CDT Plan of Treatment Not on file Goals Goal Patient Goal Type Associated Problems Recent Progress Patient-Stated? Author Have labs drawn Lifestyle No Kristel Lainez Procedures Procedure Name Priority Date/Time Associated Diagnosis Comments HEMOGLOBIN A1C - POINT OF CARE (AMB) Routine 12/25/2021 11:11 AM CDT Prediabetes MAMMO RIGHT DIAGNOSTIC W ERMELINDA Routine 03/27/2021 3:18 PM CDT Abnormal mammogram of right breast LIPID PROFILE Routine 02/14/2021 10:35 AM CDT Screening for lipid disorders from Last 3 Months or Most Recently Relevant to Health Maintenance Results * HEMOGLOBIN A1C - POINT OF CARE (HgbA1C) (12/25/2021 11:11 AM CDT) Hemoglobin A1c POCT 6.1 % [facility] Expiration Date [id number] [facility] Lot # [id number] [facility] QC Verified Yes Yes [facility] Blood BLOOD SPECIMEN / Unknown 12/25/2021 11:11 AM CDT Dawn Sebastian PA-C LAB - POINT OF CA RE ORDERABLES [facility] [address] [place] [address], [facility] [phone] * MAMMO RIGHT DIAGNOSTIC W ERMELINDA (03/27/2021 3:18 PM CDT) Anatomical Region Laterality Modality Breast Right Mammography 03/27/2021 3:20 PM CDT Impressions 03/27/2021 3:46 PM CDT The 0.5 cm oval mass in the lower outer right breast is stable dating back to 2018 and is therefore considered benign. No evidence of malignancy in the right breast. ASSESSMENT: BIRADS Category 2: Benign finding(s). RECOMMENDATION: Annual screening mammography. Findings and recommendation were discussed with the patient by Dr. Richardson. Thank you for allowing us to participate in the care of your patient. [facility] utilizes [employer] as a reminder system to notify patients of their next recommended mammogram. *Reading Radiologist: Damari Richardson on 03/27/2021 at 3:46 PM Narrative 03/27/2021 3:46 PM CDT EXAMINATION: Digital right diagnostic mammogram and limited right breast ultrasound on03/27/2021 3:20 PM. Low-dose digital breast tomosynthesis examination was performed with synthetic 2D and 3D acquisitions. Computer assisted detection was utilized. PRIOR: 03/01/2021 and priors dating back to 06/17/2016. HISTORY: 46-year-old recalled from screening mammography for evaluation of a questioned asymmetry with associated calcifications in the lateral right breast. She has a family history of breast cancer in multiple aunts. BREAST PARENCHYMAL DENSITY: There are scattered areas of fibroglandular density. FINDINGS: A 0.5 cm oval mass persists in the lower outer right breast at mid depth. It is not associated with calcifications on the magnification views. It is similar dating back to 2018. Ultrasound of the lower outer right breast performed by the route sales delivery drivers supervisor. There is no suspicious solid or cystic mass. No definite correlate identified for the mammographic mass. Noris Bob MD MAMMO ORDERABLES * (ABNORMAL) LIPID PROFILE (02/14/2021 10:35 AM CDT) Cholesterol 190 <200 mg/dL [facility] ACCOUNT BILL Triglycerides 73 <150 mg/dL [facility] ACCOUNT BILL HDL Cholesterol 43 >40 mg/dL [facility] ACCOUNT BILL VLDL Calculated 15 <=30 mg/dL [facility] ACCOUNT BILL LDL Calculated 132(H) <130 mg/dL [facility] ACCOUNT BILL Comment:FASTING Blood BLOOD SPECIMEN / Unknown 02/14/2021 10:35 AM CDT 02/14/2021 Narrative Resulting Agency Comment Lab Testing performed at: [facility] [address] [address] [place] [phone] Dawn Sebastian PA-C LAB - CHEMISTRY O RDERABLES [facility] ACCOUNT BILL [address] [place] [address] from Last 3 Months or Most Recently Relevant to Health Maintenance Care Teams Drilling Engineering Manager Relationship Specialty Start Date End Date Noris Bob MD [address] [place] [phone] PCP - General 08/19/23
--- OUTSIDE RECORDS SUMMARY | 2024-06-26 02:23 | XMS_ITS | Encounter Summary ---
Author Organization [facility] Address [address] [facility] [address] Care Team Providers Care Supervising Airplane Pilot Name Role Phone Noris Bob MD Primary Care Provider [phone] Reason for Visit * Reason Onset Date Comments Home Health 06/06/2021 Encounter Details Date Type Department Care Team (Late st Contact Info) Description 06/06/2021 Telephone [facility] - Family Medicine [address] [place] [address] Noris Bob MD [address] [place] [phone] [facility] Social History Tobacco Use Types Packs/Day Years Used Date Smoking Tobacco: Never Smokeless Tobacco: Never Alcohol Use Standard Drinks/Week Comments No 0 (1 standard drink = 0.6 oz pur e alcohol) Sex and Gender Information Value Date Recorded Sex Assigned at Not on file Gender Identity Not on file Sexual Orientation Not on file documented as of this encounter Miscellaneous Notes * Telephone Encounter - Adina Rashid - 06/06/2021 3:58 PM CST Spoke to dharmesh Oro per Dr Bob. IOVASCULAR TECHNOLOGIST * Telephone Encounter - Noris Bob MD - 06/06/2021 3:16 PM CST yes IOVASCULAR TECHNOLOGIST * Telephone Encounter - Jazmyne Sheikh - 06/06/2021 2:44 PM CST Shorty with [facility] Home Care is requesting PT 1 time per week for the next 4 weeks IOVASCULAR TECHNOLOGIST documented in this encounter Plan of Treatment Not on file documented as of this encounter Goals Goal Patient Goal Type Associated Problems Recent Progress Patient-Stated? Author Have labs drawn Lifestyle No Kristel Lainez documented as of this encounter Visit Diagnoses Not on filedocumented in this encounter Care Teams Supervising Airplane Pilot Relationship Specialty Start Date End Date Noris Bob MD [address] [place] [phone] PCP - General Family Medicine 04/23/16 10/25/22 documented as of this encounter
--- OUTSIDE RECORDS SUMMARY | 2024-06-26 02:23 | XMS_ITS | Encounter Summary ---
Author Organization [facility] Address [address] [place] [address] Care Team Providers Care Inseam Leveler Name Role Phone Noris Bob MD Primary Care Provider [phone] Reason for Visit * Reason Comments Refill Request Encounter Details Date Type Department Care Team (Late st Contact Info) Description 09/08/2021 Refill [facility] - Family Medicine [address] [place] [address] Noris Bob MD [address] [place] [phone] Refill Request Social History Tobacco Use [...] on file Sexual Orientation Not on file COVID-19 Exposure Response Date Recorded In the last month, have you been in contact with someone who was confirmed or suspected to have Coronavirus / COVID-19? No / Unsure 09/02/2021 12:00 PM CASHIER OR CHECKER STOCK CLERK documented as of this encounter Plan of Treatment Not on file documented as of this encounter Goals Goal Patient Goal Type Associated Problems Recent Progress Patient-Stated? Author Have labs drawn Lifestyle No Kristel Lainez documented as of this encounter Visit Diagnoses Diagnosis Prediabetes Other abnormal glucose documented in this encounter Care Teams Inseam Leveler Relationship Specialty Start Date End Date Noris Bob MD [address] [place] [phone] PCP - General Family Medicine 04/23/16 10/25/22 documented as of this encounter
--- OUTSIDE RECORDS SUMMARY | 2024-06-26 02:23 | XMS_ITS | Encounter Summary ---
Author Organization [facility] Address [address] [place] [address] Care Team Providers Care Country Printer Name Role Phone Noris Bob MD Primary Care Provider [phone] Reason for Visit * Reason Comments Refill Request Encounter Details Date Type Department Care Team (Late st Contact Info) Description 08/05/2022 Refill [facility] - Family Medicine [address] [place] [address] Noris Bob MD [address] [place] [phone] Refill Request Social History Tobacco Use [...] encounter Miscellaneous Notes * Telephone Encounter - Dawn Sebastian PA-C - 08/05/2022 9:05 AM COUNTY NURSE due for f/u visit. Pt needs to be called and scheduled TY NURSE documented in this encounter Plan of Treatment Not on file documented as of this encounter Goals Goal Patient Goal Type Associated Problems Recent Progress Patient-Stated? Author Have labs drawn Lifestyle No Dora Lainezhel K documented as of this encounter Visit Diagnoses Diagnosis Prediabetes Other abnormal glucose documented in this encounter Care Teams Country Printer Relationship Specialty Start Date End Date Noris Bob MD [address] [place] [address] PCP - General Family Medicine 04/23/16 10/25/22 documented as of this encounter
--- OUTSIDE RECORDS SUMMARY | 2024-06-26 02:23 | XMS_ITS | Patient Health Summary ---
Author Organization [facility] Address [address] [place] [address] Care Team Providers Care Lidding Machine Operator Name Role Phone Noris Bob MD Primary Care Provider [phone] Note from [facility],non-owned Affiliates and Associated Physician Practices is amultiple site organization consisting of ambulatory clinics and hospital sitesin [place], [place], [place] and [place]. This disclosure is being madepursuant to the Care Everywhere program and may not contain all information available regarding this patient. Last updated 18.[facility] Allergies No known active allergies Medications * Be aware that medications may not be up to date on this document. Alwaysverify current medications with the patient. * Cetirizine HCl (ZYRTEC PO) * blood glucose test strip(Started 05/14/2021) Use 1 (one) strip 2 times daily 3 refills by 05/14/2022 * Lancets (ONETOUCH DELICA PLUS 33G EXTRA FINE LANCET)(Started 05/28/2021) Use 1 device 2 times daily * acetaminophen (TYLENOL) 500 MG tablet(Started 05/13/2021) Take 1,000 mg by mouth as needed * albuterol HFA (PROVENTIL; VENTOLIN; PROAIR) 108 (90 Base) MCG/ACT inhaler (Started 05/30/2021) Inhale 2 (two) puffs by mouth every 4 hours as needed 1 refill by 05/30/2022 * metFORMIN (Glucophage) 500 MG tablet(Started 09/21/2022) TAKE 1 TABLET BY MOUTH TWICE A DAY WITH MORNING AND EVENING MEAL * levothyroxine (Synthroid) 75 MCG tablet(Started 10/26/2022) TAKE 1 TABLET BY MOUTH EVERY DAY 1 refill by 10/26/2023 Active Problems Problem Noted Date Diagnosed Date Hypoxia 12/25/2021 Physical deconditioning 12/25/2021 On home O2 06/13/2021 Pneumonia due to COVID-19 virus 06/13/2021 Elevated AST (SGOT) 04/14/2021 Seasonal allergies 02/14/2021 Prediabetes 02/14/2021 Hypothyroidism 08/30/2015 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 (FLUZONE; FLULAVAL; FLUARIX; AFLURIA QUADRIVALENT; 6MO+), 0.5 ML (IIV4)(Given 08/30/2015) * TDAP (7yrs+)(Given 03/10/2016, 02/27/2016) * Td (Adult), 2 Lf Tetanus Toxoid, Adsorbed, Pf(Given 06/28/2006) Social History Tobacco Use Types Packs/Day Years [...] Mass Index 43.67 12/25/2021 10:22 AM CDT Procedures * HEMOGLOBIN A1C - POINT OF CARE (AMB)(Performed 12/25/2021) Performed for Prediabetes * COMPREHENSIVE METABOLIC PANEL(Performed 05/30/2021) Performed for Anemia, unspecified type * CBC W AUTO DIFFERENTIAL(Performed 05/30/2021) Performed for Anemia, unspecified type * HEMOGLOBIN A1C W EAG(Performed 05/30/2021) Performed for Prediabetes * TSH(Performed 05/30/2021) Performed for Hypothyroidism, unspecified type * STREP A SCREEN - POCT (IP) URGENT CARE(Performed 04/08/2021) Performed for Strep pharyngitis * SARS-COV-2 (COVID-19) IN HOUSE(Performed 04/08/2021) Performed for Encounter for laboratory testing for COVID-19 virus * US BREAST RIGHT LTD(Performed 03/27/2021) Performed for Abnormal mammogram of right breast * MAMMO RIGHT DIAGNOSTIC W ERMELINDA(Performed 03/27/2021) Performed for Abnormal mammogram of right breast * MAMMO BILAT SCREENING W ERMELINDA(Performed 03/01/2021) Performed for Encounter for screening mammogram for breast cancer * MICROALB/CREAT RATIO URINE RANDOM PANEL(Performed 02/14/2021) Performed for Encounter for annual physical exam * T4 FREE(Performed 02/14/2021) Performed for Hypothyroidism, unspecified type * TSH(Performed 02/14/2021) Performed for Hypothyroidism, unspecified type * LIPID PROFILE(Performed 02/14/2021) Performed for Screening for lipid disorders * COMPREHENSIVE METABOLIC PANEL(Performed 02/14/2021) Performed for Encounter for annual physical exam * CBC W AUTO DIFFERENTIAL(Performed 02/14/2021) Performed for Encounter for annual physical exam * HEMOGLOBIN A1C - POINT OF CARE (AMB)(Performed 02/14/2021) Performed for Prediabetes * HEMOGLOBIN A1C W EAG(Performed 07/28/2019) Performed for Abnormal glucose * TSH(Performed 07/28/2019) Performed for Hypothyroidism, unspecified type * COMPREHENSIVE METABOLIC PANEL(Performed 11/23/2018) Performed for Abnormal glucose * LIPID PROFILE(Performed 11/23/2018) Performed for Abnormal glucose * TSH(Performed 11/23/2018) Performed for Hypothyroidism, unspecified type * HEMOGLOBIN A1C W EAG(Performed 11/23/2018) Performed for Abnormal glucose * MICROALB/CREAT RATIO URINE RANDOM PANEL(Performed 02/15/2018) Performed for Abnormal glucose * COMPREHENSIVE METABOLIC PANEL(Performed 02/15/2018) Performed for Abnormal glucose * HEMOGLOBIN A1C W EAG(Performed 02/15/2018) Performed for Abnormal glucose * MAMMO BILAT SCREENING(Performed 11/25/2017) Performed for Visit for screening mammogram * TSH(Performed 11/10/2017) Performed for Hypothyroidism, unspecified type * LIPID PROFILE(Performed 06/29/2017) Performed for Abnormal glucose, BMI 40.0-44.9, adult (HCC), Screening for lipoid disorders * TSH(Performed 06/29/2017) Performed for Hypothyroidism, unspecified type * HEMOGLOBIN A1C W EAG(Performed 06/29/2017) Performed for Abnormal glucose * COMPREHENSIVE METABOLIC PANEL(Performed 06/29/2017) Performed for Abnormal glucose * BASIC METABOLIC PANEL (CALCIUM TOTAL)(Performed 12/23/2016) Performed for Abnormal glucose * TSH(Performed 12/23/2016) Performed for Hypothyroidism, unspecified type * T4 FREE(Performed 12/23/2016) Performed for Hypothyroidism, unspecified type * HEMOGLOBIN A1C W EAG(Performed 12/23/2016) Performed for Abnormal glucose * MICROALB/CREAT RATIO URINE RANDOM PANEL(Performed 12/23/2016) Performed for Abnormal glucose * HEMOGLOBIN A1C W EAG(Performed 06/17/2016) * TSH(Performed 06/17/2016) * T4 FREE(Performed 06/17/2016) * BASIC METABOLIC PANEL (CALCIUM TOTAL)(Performed 06/17/2016) * LIPID PROFILE(Performed 06/17/2016) * MAMMO BILAT SCREENING(Performed 06/17/2016) Performed for Screening for breast cancer * LAB RESULTS ORDER(Performed 04/22/2016) Results * HEMOGLOBIN A1C - POINT OF CARE (HgbA1C) (12/25/2021 11:11 AM CDT) Only the most recent of2 resultswithin the time period is included. Hemoglobin A1c POCT 6.1 % [facility] Expiration Date [id number] [facility] LISA Lot # [id number] [facility] LISA QC Verified Yes Yes [facility] Blood BLOOD SPECIMEN / Unknown 12/25/2021 11:11 AM CDT Dawn Sebastian PA-C LAB - POINT OF CA RE ORDERABLES [facility] [address] [phone] * (ABNORMAL) CBC WITH DIFFERENTIAL (05/30/2021 11:48 AM MILITARY PROFESSIONAL) Only the most recent of2 resultswithin the time period is included. WBC 8.4 4.4 - 10.7 x10E9/L [facility] ACCOUNT BILL RBC 4.32 3.80 - 5.20 x10E12/L [facility] ACCOUNT BILL Hemoglobin 12.5 12.0 - 15.6 gm/dL [facility] ACCOUNT BILL Hematocrit 40.2 35.9 - 45.5 % [facility] ACCOUNT BILL MCV 93.1 80.7 - 98.3 fl [facility] ACCOUNT BILL MCH 28.9 26.7 - 34.0 pg [facility] ACCOUNT BILL MCHC 31.1 30.8 - 35.9 gm/dL [facility] ACCOUNT BILL RDW 16.3(H) 12.1 - 14.9 % [facility] ACCOUNT BILL Platelet Count 173 153 - 416 x10E9/L [facility] ACCOUNT BILL Comment:MPV FL BLOOD (SSM) 1 3.6 fl 9.4-12.9 H Granulocytes % 70.1 44.0 - 73.0 % [facility] ACCOUNT BILL Lymphocytes % 19.0(L) 20.0 - 43.0 % [facility] ACCOUNT BILL Monocytes % 5.3 5.0 - 13.0 % [facility] ACCOUNT BILL Eosinophils % 4.7 0.0 - 6.0 % [facility] ACCOUNT BILL Basophils % 0.7 0.0 - 2.0 % [facility] ACCOUNT BILL Granulocytes Absolute 5.90 2.01 - 7.14 x10E9/L [facility] ACCOUNT BILL Lymphocytes Absolute 1.60 1.07 - 3.94 x10E9/L [facility] ACCOUNT BILL Monocytes Absolute 0.45 0.26 - 1.07 x10E9/L [facility] ACCOUNT BILL Eosinophils Absolute 0.40 0 - 0.47 x10E9/L [facility] ACCOUNT BILL Basophils Absolute 0.06 0 - 0.08 x10E9/L [facility] ACCOUNT BILL Immature Granulocytes 0.2 0 - 1 % [facility] ACCOUNT BILL Immature Granulocytes Absolute 0.02 0.00 - 0.06 x10E9/L [facility] ACCOUNT BILL nRBC 0 /100 WBC [facility] ACCOUNT BILL Blood BLOOD SPECIMEN / Unknown 05/30/2021 11:48 AM MILITARY PROFESSIONAL 05/30/2021 Narrative Resulting Agency Comment Lab Testing performed at: [address] ?? [place] [phone] Noris Bob MD LAB - HEMATOLOGY ORD ERABLES [facility] ACCOUNT BILL [address] [place] [address] * (ABNORMAL) COMPREHENSIVE METABOLIC PANEL (05/30/2021 11:48 AM MILITARY PROFESSIONAL) Only the most recent of5 resultswithin the time period is included. Glucose 162(H) 70 - 105 mg/dL [facility] ACCOUNT BILL BUN 13 7 - 18.7 mg/dL [facility] ACCOUNT BILL Creatinine 0.77 0.57 - 1.11 mg/dL [facility] ACCOUNT BILL eGFR by MDRD >60 >60 mL/min/1.7 3m2 [facility] ACCOUNT BILL eGFR by MDRD >60 >60 mL/min/1.7 3m2 [facility] ACCOUNT BILL Sodium 140 136 - 145 mmol/L [facility] ACCOUNT BILL Potassium 4.0 3.5 - 5.1 mmol/L [facility] ACCOUNT BILL Chloride 104 98 - 107 mmol/L [facility] ACCOUNT BILL CO2 23 23 - 31 mmol/L [facility] ACCOUNT BILL Calcium 9.5 8.4 - 10.4 mg/dL [facility] ACCOUNT BILL Protein Total 7.4 6.4 - 8.3 gm/dL [facility] ACCOUNT BILL Albumin 4.1 3.5 - 5.2 gm/dL [facility] ACCOUNT BILL Bilirubin Total 0.4 0.2 - 1.2 mg/dL [facility] ACCOUNT BILL Alkaline Phosphatase 98 40 - 150 U/L [facility] ACCOUNT BILL AST 30 5 - 34 U/L [facility] ACCOUNT BILL ALT 56 0 - 61 U/L [facility] ACCOUNT BILL Blood BLOOD SPECIMEN / Unknown 05/30/2021 11:48 AM MILITARY PROFESSIONAL 05/30/2021 Narrative Resulting Agency Comment Lab Testing performed at: [place] [id number] ?? [place] [id number] Noris Bob MD LAB - CHEMISTRY LIZANDRO FISHMAN [facility] ACCOUNT BILL [address] [place] [address] * (ABNORMAL) HEMOGLOBIN A1C W EAG (05/30/2021 11:47 AM MILITARY PROFESSIONAL) Only the most recent of7 resultswithin the time period is included. Hemoglobin A1c 6.3(H) 4.2 - 5.6 % [facility] ACCOUNT BILL Estimated Average Glucose 134 mg/dL [facility] ACCOUNT BILL Comment: The following cutoff levels are recommended by [employer]. A1c ??> 6.5% : considered as diabetes if two separate tests > 6.5% or in an appropriate clinical setting. A1c ??5.7% - 6.4% : considered as prediabetes (suggest increa sed risk for diabetes and cardiovascular disease) Control target level: ??Should be individualized. ??< 7 ??for g eneral (non-) , ??< 8% less stringent goal, ??< 6.5 ??more stringent g Hemoglobin A1c measurements are used as an aid in the diagno sis of diabetic mellitus, as an aid to identify patients who may be at the disease. ?? This method may yield falsely low results when fe annia hemoglobin (HbF) exceeds 5% in the specimen. Blood BLOOD SPECIMEN / Unknown 05/30/2021 11:47 AM MILITARY PROFESSIONAL 05/30/2021 Narrative Resulting Agency Comment Lab Testing performed at: [facility] [address] [address] ?? [place] [phone] Noris Bob MD LAB - CHEMISTRY LIZANDRO FISHMAN [facility] ACCOUNT BILL [address] [place] [address] * TSH (05/30/2021 11:47 AM MILITARY PROFESSIONAL) Only the most recent of8 resultswithin the time period is included. Pathologist [facility] TSH 2.2940 0.35 - 4.94 uIU/mL [facility] ACCOUNT BILL Blood BLOOD SPECIMEN / Unknown 05/30/2021 11:47 AM MILITARY PROFESSIONAL 05/30/2021 Narrative Resulting Agency Comment Lab Testing performed at: [address] ?? [facility] [phone] Noris Bob MD LAB - CHEMISTRY LIZANDRO FISHMAN Performing Organization Address City/[facility]/ZIP Co de Phone Number [facility] ACCOUNT BILL [address] [place] [address] * (ABNORMAL) STREP A SCREEN - POCT (IP) URGENT CARE (04/08/2021 4:38 PM CDT) [facility] Strep A Rapid POCT Positive( A) Negative [facility] QC Verified Yes Yes [facility] Throat ENTIRE THROAT (SURFACE REGION OF NECK) / Unknown 04/08/2021 4:38 PM CDT Chantell ROMANO LAB - POINT OF CARE ORDERABLES [facility] [address] [phone] * (ABNORMAL) SARS-COV-2 (COVID-19) INTERNAL (04/08/2021 3:36 PM CDT) [facility] COVID-19 PCR Detected( AA) Not detected 04/09/2021 5:50 AM CDT [facility]CRO[facility] Microbiology SPECIMEN FROM NASOPHARYNGEAL STRUCTURE / Unknown Collection / Unknown 04/08/2021 3:36 PM CDT 04/08/2021 3:36 PM CDT Narrative [facility] - 04/09/2021 5:50 AM CDT This nucleic acid amplification assay performance was validated by [facility]. This test has been authorized by the Food and Drug administration (FDA)under an Emergency??Use Authorization (EUA). This test has been validated in accordance with the FDA's guidance document Policy for Diagnostic Testing in Laboratories Certified to perform High Complexity Testing under CLIA prior to Emergency Use Authorization for Coronavirus Disease-2019 during the Public Health Emergency issued on August 26, 2019. FDA independent review of this validation is pending. This test is only authorized for the duration of time the declaration that circumstances exist justifying the authorization of emergency use of in vitro diagnostic tests for detection of SARS-CoV-2 virus and/or diagnosis of COVID-19 infection under section 564(b)(1) of the Act, 21 U.S.C 360bbb-3 (b)(1), unless the authorization is terminated or revoked sooner. Fact Sheets for this EUA assay are available upon request. Chantell Pittman APRN-FOREMAN/PROJECT MANAGER LAB - MICROBIO LOGY ORDERABLES [facility] [address] [place] [address], [facility] [phone] * US BREAST RIGHT LTD (03/27/2021 3:36 PM CDT) Anatomical Region Laterality Modality Breast Right Ultrasound 03/27/2021 3:20 PM CDT Impressions 03/27/2021 3:46 [...] participate in the care of your patient. [facility] utilizes Dexetra as a reminder system to notify patients [...] lower outer right breast performed by the laborer brooder farm. There is no suspicious solid or cystic mass. No definite correlate identified for the mammographic mass. Noris Bob MD US ORDERABLES * MAMMO RIGHT DIAGNOSTIC W ERMELINDA (03/27/2021 [...] participate in the care of your patient. [employer] [facility] utilizes Dexetra as a reminder system to notify patients [...] lower outer right breast performed by the laborer brooder farm. There is no suspicious solid or cystic mass. No definite correlate identified for the mammographic mass. Noris Bob MD MAMMO ORDERABLES * MAMMO BILAT SCREENING W ERMELINDA (03/01/2021 8:36 AM CDT) Anatomical Region Laterality Modality Breast Bilateral Mammography 03/02/2021 12:2 5 PM CDT Impressions 03/02/2021 12:28 PM CDT Right diagnostic mammogram and possible right breast ultrasound are now recommended OVERALL FINAL ASSESSMENT: BI-RADS CATEGORY 0: INCOMPLETE: NEED ADDITIONAL IMAGING EVALUATION. *Reading Radiologist: Isela Bates on 03/02/2021 at 12:28 PM Narrative 03/02/2021 12:28 PM CDT EXAMINATION: BILATERAL DIGITAL SCREENING MAMMOGRAM AND BILATERAL BREAST TOMOSYNTHESIS HISTORY: Screening. COMPARISON: Serial examinations dating back to 11/25/2017 TECHNIQUE: ??BILATERAL digital breast tomosynthesis (DBT) and synthetic 2D digital mammogram images were obtained (bilateral craniocaudal and mediolateral oblique projections) including computer aided detection (CAD.) BREAST PARENCHYMAL COMPOSITION:Category B: There are scattered areas of fibroglandular density. MAMMOGRAM FINDINGS: There may be a new asymmetry with associated amorphous calcifications in the right lateral breast mid depth, with a possible correlate in the inferior breast on the MLO view. Reference right CC tomosynthesis slice . There is no suspicious finding in the left breast. Noris Bob MD MAMMO ORDERABLES * MICROALB/CREAT RATIO URINE RANDOM PANEL (02/14/2021 10:35 AM CDT) Only the most recent of3 resultswithin the time period is included. Creatinine Urine 80.31 mg/dL [facility] ACCOUNT BILL Microalbumin Urine <0.5 mg/dL [facility] ACCOUNT BILL Microalbumin/Cre atinine Ratio NOT NEEDED mg/g [facility] ACCOUNT BILL Comment: Unable to calculate result since non-numeric result obtained for component test. FASTING Ancillary determined the test is not needed. Urine URINE SPECIMEN OBTAINED BY CLEAN CATCH PROCEDURE / Unknown 02/14/2021 10:35 AM CDT 02/14/2021 Narrative Resulting Agency Comment Lab Testing performed at: [place] [address] ?? [place] [phone] Dawn Sebastian PA-C LAB - URINE CHEMI STRY ORDERABLES Performing Organization Address [facility] Co de Phone Number [facility] ACCOUNT BILL [address] [place] [address] * T4 FREE (02/14/2021 10:35 AM CDT) Only the most recent of3 resultswithin the time period is included. T4 Free 0.88 0.70 - 1.48 ng/dL [facility] ACCOUNT BILL Comment:FASTING Blood BLOOD SPECIMEN / Unknown 02/14/2021 10:35 AM CDT 02/14/2021 Narrative Resulting Agency Comment Lab Testing performed at: [place] [address] ?? [place] [phone] Dawn Sebastian PA-C LAB - CHEMISTRY O RDERABLES Performing Organization Address City/[facility]/ZIP Co de Phone Number [facility] ACCOUNT BILL [address] [place] [address] * (ABNORMAL) LIPID PROFILE (02/14/2021 10:35 AM CDT) Only the most recent of4 resultswithin the time period is included. Cholesterol 190 <200 mg/dL [facility] ACCOUNT BILL Triglycerides 73 <150 mg/dL [facility] ACCOUNT BILL HDL Cholesterol 43 >40 mg/dL [facility] ACCOUNT BILL VLDL Calculated 15 <=30 mg/dL [facility] ACCOUNT BILL LDL Calculated 132(H) <130 mg/dL [facility] ACCOUNT BILL Comment:FASTING Blood BLOOD SPECIMEN / Unknown 02/14/2021 10:35 AM CDT 02/14/2021 Narrative Resulting Agency Comment Lab Testing performed at: [facility] [address] [address] ?? [place] [phone] Dawn Sebastian PA-C LAB - CHEMISTRY O RDERABLES [facility] ACCOUNT BILL [address] [place] [address] * MAMMO SCREENING DIGITAL IMAGE BILAT G0202 (11/25/2017 3:50 PM CDT) Only the most recent of2 resultswithin the time period is included. Anatomical Region Laterality Modality Breast Bilateral Mammography 11/25/2017 4:08 PM CDT Impressions 11/25/2017 4:10 PM CDT No mammographic evidence of malignancy in either breast. ASSESSMENT: BIRADS Category 1: Negative mammogram. RECOMMENDATION: Bilateral screening mammogram in one year. Thank you for allowing us to participate in the care of your patient. [facility] utilizes Dexetra as a reminder system to notify patients of their next recommended mammogram. Reading Radiologist: Damari Richardson MD on 11/25/2017 at 4:10 PM Narrative 11/25/2017 4:10 PM CDT EXAMINATION: Digital screening mammogram on 11/25/2017. Low-dose full-field digital breast tomosynthesis examination was performed with synthetic 2D images and 3D acquisitions. Computer assisted detection was utilized. PRIOR: 06/17/2016. BREAST PARENCHYMAL DENSITY: There are scattered areas of fibroglandular density. FINDINGS: No suspicious masses, areas of architectural distortion or microcalcifications are evident on synthetic 2D mammogram or tomosynthesis images. ??There has been no significant interval change since the prior examination. Ragini Navas MD MAMMO ORDERABLES * (ABNORMAL) BASIC METABOLIC PANEL (CALCIUM TOTAL) (12/23/2016 9:26 AM CDT) Only the most recent of2 resultswithin the time period is included. Glucose 105(H) 65 - 99 mg/dL [facility] Comment: ? Fasting reference interval For someone without known diabetes, a glucose value between 100 and 125 mg/dL is consistent with prediabetes and should be confirmed with a follow-up test. BUN 12 7 - 25 mg/dL [facility] Creatinine 0.78 0.50 - 1.10 mg/dL [facility] eGFR by MDRD 94 > OR = 60 mL/min/1. 73m2 [facility] eGFR by MDRD 109 > OR = 60 mL/min/1. 73m2 [facility] BUN/Creatinine Ratio NOT APPLICABLE 6 - (calc) [facility] Sodium 141 135 - 146 mmol/L [facility] Potassium 4.4 3.5 - 5.3 mmol/L [facility] Chloride 107 98 - 110 mmol/L [facility] CO2 25 20 - 31 mmol/L [facility] Calcium 9.3 8.6 - 10.2 mg/dL [facility] Comment: Test Performed at: [employer] [facility] Companies[address] ??[phone] PACO HIGHTOWER DO,MPH Blood BLOOD SPECIMEN / Unknown 12/23/2016 9:26 AM CDT 12/23/2016 9:27 AM CDT Noris Bob MD LAB - CHEMISTRY [facility] Organization Address City/State/ZIP Co de Phone Number [facility] [address] [place] [address] * LAB RESULTS ORDER (04/22/2016) Noris Bob MD LAB - THERAPEUTIC DR GAN MONITORING ORDERABLES Care Teams Lidding Machine Operator Relationship Specialty Start Date End Date Noris Bob MD [address] [place] [phone] PCP - General 08/19/23
--- OUTSIDE RECORDS SUMMARY | 2024-06-26 02:23 | XMS_ITS | Encounter Summary ---
Author Organization [facility] Address [address] [place] [address] Care Team Providers Care Fisher Seal Name Role Phone Unavailable Primary Care Provider Unavailabl e Reason for Visit * Reason Comments Refill Request Encounter Details Date Type Department Care Team (Late st Contact Info) Description 05/08/2023 Refill [facility] Medical [facility] - Family Medicine [address] [place] [phone] Noris Bob MD [address] [place] [phone] Refill Request Social History Tobacco Use Types [...] Telephone Encounter - Dawn Sebastian PA-C - 05/10/2023 7:26 AM REINFORCING BAR SETTER needs to be routed to cy godwin FORCING BAR SETTER documented in this encounter Plan of Treatment Not on file documented as of this encounter Goals Goal Patient Goal Type Associated Problems Recent Progress Patient-Stated? Author Have labs drawn Lifestyle No Kristel Lainez documented as of this encounter Visit Diagnoses Not on filedocumented in this encounter
--- OUTSIDE RECORDS SUMMARY | 2024-06-26 02:23 | XMS_ITS | Encounter Summary ---
Author Organization [facility] Address [address] [facility] [place] [address] Care Team Providers Care Supervisor Incising Name Role Phone Noris Bob MD Primary Care Provider [phone] Encounter Details Date Type Department Care Team (Late st Contact Info) Description 12/05/2021 Orders Only [facility] Medical [facility] - Family Medicine [address] [place] [id number] Marsha De Jesus LPN Social History Tobacco Use Types Packs/Day Years [...] on file documented as of this encounter Plan of Treatment Not on file documented as of this encounter Goals Goal Patient Goal Type Associated Problems Recent Progress Patient-Stated? Author Have labs drawn Lifestyle No Kristel Lainez documented as of this encounter Visit Diagnoses Not on filedocumented in this encounter Care Teams Supervisor Incising Relationship Specialty Start Date End Date Noris Bob MD [address] [place] [phone] PCP - General Family Medicine 04/23/16 10/25/22 documented as of this encounter
--- OUTSIDE RECORDS SUMMARY | 2024-06-26 02:23 | XMS_ITS | Encounter Summary ---
Author Organization [facility] Address [address] [place] [address] Care Team Providers Care Nurses Educator Name Role Phone Noris Bob MD Primary Care Provider [phone] Encounter Details Date Type Department Care Team (Late st Contact Info) Description 08/12/2021 1:30 PM CHIEF OF SURGERY Office Visit [facility] Medical [facility] - Family Medicine [address] [place] [address] Noris Bob MD [address] [place] [phone] [id number] condition (Primary Dx); On home O2; Prediabetes; Hypothyroidism, unspecified type; BMI 40.0-44.9, adult (HCC) Social History Tobacco Use Types Packs/Day Years [...] Sign Reading Time Taken Comments Blood Pressure 122/70 08/12/2021 1:29 PM CHIEF OF SURGERY Pulse 70 08/12/2021 1:29 PM CHIEF OF SURGERY Temperature - - Respiratory Rate - - Oxygen Saturation 98% 08/12/2021 1:29 PM CHIEF OF SURGERY Inhaled Oxygen Concentration - - Weight 127.2 kg (280 lb 6.4 oz) 08/12/2021 1:29 PM CHIEF OF SURGERY Height 171.5 cm (5' 7.5 ) 08/12/2021 1:29 PM CHIEF OF SURGERY Body Mass Index 43.27 08/12/2021 1:29 PM CHIEF OF SURGERY documented in this encounter Progress Notes * Noris Bob MD - 08/12/2021 1:41 PM CST SUBJECTIVE: Shaina Huynh is a 46 year old female who complains of CC: COVID f/u HPI: She is really doing much better. She has not needed oxygen at rest for some weeks now. And nowwith ambulation. She only dropped at 96 percent on room air. She would like to stop her O2. It has been a week or 2 since she has needed it. When she gets short of breath. She uses her albuterol inhaler and that helps quite a bit. She does note decreased exercise tolerance. That is improving. She has been able to do her job with the limitations that we have in place and she thinks that she will be able to work without limitations now. She is little surprised that she has gained weight like thisbut would like to work on getting that off. No fevers no chills. Patient Active Problem List: Hypothyroidism Seasonal allergies Prediabetes On home O2 Pneumonia due to COVID-19 virus Allergies: Patient has no known allergies. PMHx, FHX, Surgical Hx reviewed. Social History Occupational History ??? Not on file Tobacco Use ??? Smoking status: Never Smoker ??? Smokeless tobacco: Never Used Substance and Sexual Activity ??? Alcohol use: No ??? Drug use: No ??? Sexual activity: Not on file Social History Social History Narrative Works at [employer] OBJECTIVE: BP 122/70 Pulse 70 Ht 1.715 m (5' 7.5 ) Wt 127.2 kg (280 lb 6.4 oz) SpO2 98% BMI 43.27 kg/m2 Height: 171.5 cm (5' 7.5 ) BP Readings from Last 3 Encounters: 08/12/21 122/70 06/13/21 133/80 05/30/21 131/87 Wt Readings from Last 3 Encounters: 08/12/21 127.2 kg (280 lb 6.4 oz) 06/13/21 119.3 kg (263 lb) 05/30/21 118.4 kg (261 lb) General appearance - alert, well appearing, and in no distress Lungs - clear to auscultation, no wheezes, rales or rhonchi, symmetric air entry, non-labored resp effort Heart - normal rate, regular rhythm, normal S1, S2, no murmurs, rubs, clicks or gallops Extremities - peripheral pulses normal, no pedal edema Skin - The visualized skin no for new lesions, rash, sores, hair loss ASSESSMENT AND PLAN: ICD-10-CM 1. [id number] condition U09.9 Doing much better. She just needs to gradually get back into shape. She can go ahead and stop her oxygen and I will release her back to her job with no restrictions.She will let me know if she has any problems with that 2. On home O2 Z99.81 D/c 3. Prediabetes R73.03 metFORMIN (GLUCOPHAGE) 500 MG tablet 4. Hypothyroidism, unspecified type E03.9 TSH 5. BMI 40.0-44.9, adult Z68.41 I stressed the need to get back on track with this. And she agrees and will do so. She will need a Pap smear and colonoscopy as well as mammogram done this year. Orders Placed This Encounter ??? metFORMIN (GLUCOPHAGE) 500 MG tablet There are no Patient Instructions on file for this visit. Medications Discontinued During This Encounter Medication Reason ??? Oxygen No Pharm No AVS Current Outpatient Medications Medication Sig Dispense Refill [...] TABLET BY MOUTH EVERY DAY 90 tablet 4 ??? metFORMIN (GLUCOPHAGE) 500 MG tablet Take 1 (one) tablet by mouth 2 times daily with morning and evening meal 60 tablet 5 ??? Oxygen [place] 1 L/min into the nose No current facility-administered medications for this visit. Return in about 4 months (around 12/10/2021). F OF SURGERY documented in this encounter Plan of Treatment Not on file documented as of this encounter Goals Goal Patient Goal Type Associated Problems Recent Progress Patient-Stated? Author Have labs drawn Lifestyle No Kristel Lainez documented as of this encounter Visit Diagnoses Diagnosis [id number] condition- Primary On home O2 Dependence on supplemental oxygen Prediabetes Other abnormal glucose Hypothyroidism, unspecified type BMI 40.0-44.9, adult (HCC) Body Mass Index 40.0-44.9, adult documented in this encounter Care Teams Nurses Educator Relationship Specialty Start Date End Date Noris Bob MD [address] [place] [address] PCP - General Family Medicine 04/23/16 10/25/22 documented as of this encounter
--- OUTSIDE RECORDS SUMMARY | 2024-06-26 02:23 | XMS_ITS | Clinical Summary ---
Author Organization [facility] Address [address] [place] [address] Care Team Providers Care Ham Facer Name Role Phone Noris Bob MD Primary Care Provider [phone] Source Comments [facility],non-owned Affiliates and Associated Physician Practices is amultiple site organization consisting of ambulatory clinics and hospital sitesin [place], [place], [place] and [place]. This disclosure is being madepursuant to the Care Everywhere program and may not contain all information available regarding this patient. Last updated 18.[facility] Allergies No known active allergies Medications * [...] (Adult), 2 Lf Tetanus Toxoid, Adsorbed, Pf Family History Medical History Relation Name Comments Diabetes Father Heart Disease Father Breast Cancer after age 50 or unknown Maternal Aunt lung ca as well Cancer - Breast Maternal Aunt Cancer - Breast Other Mat Aunt Breast Cancer after age 50 or unknown Paternal Aunt Relation Name Status Comments Father Maternal Aunt Mother Alive Other Mat Aunt Alive Paternal Aunt Social History Tobacco Use Types Packs/Day Years [...] 12/25/2021 10:22 AM CDT Plan of Treatment Health Maintenance Due Date Last Done Comments COLOGUARD (AGES 45-75) - COLON CA SCREENING 1975 COLON MONITORING 1975 COLONOSCOPY - COLON CA SCREENING 1975 CT COLONOGRAPHY - COLON CA SCREENING 1975 Colorectal Cancer Screening 1975 FIT - COLON CA SCREENING 1975 FLEX SIG - COLON CA SCREENING 1975 HIV SCREENING 1990 HEPATITIS C SCREENING 01/24/1993 HEPATITIS B VACCINE (1 of 3 - 19+ 3-dose series) 1994 PAP SMEAR 10/05/2020 10/05/2017 (Done Outside Per Patient) MAMMOGRAM 03/27/2023 03/27/2021, 09/0 09/2020, 11/25/2017, Additional history exists DEPRESSION SCREENING 06/28/2023 08/12/2021 COVID-19 VACCINE ( season) 2024 INFLUENZA VACCINE (#1) 2024 05/13/2016, 2015 SCREENING FOR DIABETES 12/25/2024 , 05/30/2021, 05/30/2021, Additional history exists ZOSTER VACCINE (1 of 2) 2025 LIPID TESTING 02/14/2026 02/14/2021, 05/2 02/2019, 06/29/2017, Additional history exists DTAP/TDAP/TD VACCINES (3 - Td or Tdap) 03/10/2026 03/10/2016, 02/27/2016, 06/28/2006 HIB VACCINE Aged Out No longer eligi ble based on patient's age to complete this topic HPV VACCINE Aged Out No longer eligi ble based on patient's age to complete this topic MENINGOCOCCAL VACCINE Aged Out No radha karolina eligible based on patient's age to complete this topic PNEUMOCOCCAL VACCINE Aged Out No long er eligible based on patient's age to complete this topic Goals Goal Patient Goal Type Associated Problems [...] Date [id number] [facility] Lot # [id number] [facility] QC Verified Yes Yes [facility] Blood BLOOD SPECIMEN / Unknown 12/25/2021 11:11 AM CDT Dawn Sebastian PA-C LAB - POINT OF CA RE ORDERABLES [facility] [address] [phone] * MAMMO RIGHT DIAGNOSTIC W ERMELINDA (03/27/2021 [...] participate in the care of your patient. [employer] [facility] utilizes [employer] as a reminder system to notify patients [...] lower outer right breast performed by the miter saw operator. There is no suspicious solid or cystic [...] Resulting Agency Comment Lab Testing performed at: [place] [address] [address] ?? [place] [phone] Dawn Sebastian PA-C LAB - CHEMISTRY O RDERABLES [facility] ACCOUNT BILL [address] [place] [address] from Last 3 Months or Most Recently Relevant to Health Maintenance Care Teams Ham Facer Relationship Specialty Start Date End Date Noris Bob MD [address] [place] [phone] PCP - General 08/19/23
--- OUTSIDE RECORDS SUMMARY | 2024-06-26 02:23 | XMS_ITS | Encounter Summary ---
Author Organization [facility] Address [address] [place] [address] Care Team Providers Care Aluminum Shingle Roofer Name Role Phone Noris Bob MD Primary Care Provider [phone] Encounter Details Date Type Department Care Team (Late st Contact Info) Description 01/09/2022 Orders Only [facility] Medical [facility] - Family Medicine [address] [place] [address] Dawn Sebastian, PAChiquisC [address] [place] [address] Social History Tobacco Use Types Packs/Day Years [...] on filedocumented in this encounter Care Teams Aluminum Shingle Roofer Relationship Specialty Start Date End Date Noris Bob MD [address] [place] [phone] PCP - General Family Medicine 04/23/16 10/25/22 documented as of this encounter
--- OUTSIDE RECORDS SUMMARY | 2024-06-26 02:23 | XMS_ITS | Encounter Summary ---
Author Organization [facility] Address [address] [facility] [place] [address] Care Team Providers Care Record Keeper Name Role Phone Unavailable Primary Care Provider Unavailabl e Reason for Visit * Reason Comments Refill Request Encounter Details Date Type Department Care Team (Late st Contact Info) Description 04/12/2023 Refill [facility] - Family Medicine [address] [place] [address] Noris Bob MD [address] [place] [phone] Refill Request Social History Tobacco Use Types [...] encounter Miscellaneous Notes * Telephone Encounter - Noris Bob MD - 04/13/2023 12:16 PM CDT Due for appt. Prior reminder already. Please call patient and schedule follow up. Refill denied until appt. * Telephone Encounter - Marsha De Jesus LPN - 04/13/2023 9:06 AM CDT NON-BIOLOGIC REFILL REQUEST Last OV:12/25/21 Next Appointment: Visit date not found Last Fill: 10/20 Recent Labs Component Name 05/30/21 1148 02/14/21 1035 WBC 8.4 7.4 HGB 12.5 12.5 PLTCOUNT 173 190 MCV 93.1 92.4 Recent Labs Component Name 05/30/21 1148 02/14/21 1035 11/23/18 1006 CREATININE 0.77 0.78 0.79 BUN 13 14 14 SODIUM 140 140 138 POTASSIUM 4.0 4.1 4.1 Recent Labs Component Name 05/30/21 1148 02/14/21 1035 11/23/18 1006 EGFR >60 >60 >60 EGFRAFR >60 >60 >60 Recent Labs Component Name 05/30/21 1148 02/14/21 1035 11/23/18 1006 AST 30 14 12 ALT 56 15 12* ALKPHOS 98 105 96 TBIL 0.4 0.3 0.5 documented in this encounter Plan of Treatment Not on file documented as of this encounter Goals Goal Patient Goal Type Associated Problems Recent Progress Patient-Stated? Author Have labs drawn Lifestyle No Kristel Lainez documented as of this encounter Visit Diagnoses Diagnosis Prediabetes Other abnormal glucose documented in this encounter
--- OUTSIDE RECORDS SUMMARY | 2024-06-26 02:23 | XMS_ITS | Encounter Summary ---
Author Organization [facility] Address [address] [place] [address] Care Team Providers Care Cistern Room Operator Name Role Phone Noris Bob MD Primary Care Provider [phone] Reason for Visit * Reason Comments Refill Request Encounter Details Date Type Department Care Team (Late st Contact Info) Description 10/24/2022 Refill [facility] Medical [facility] - Family Medicine [address] [place] [address] Noris Bob MD [address] [place] [phone] Refill Request Social History Tobacco Use [...] Encounter - Marsha De Jesus LPN - 10/26/2022 8:04 AM CDT LRF :07/16 RONEL :12/25 Next OV : none documented in this encounter Plan of Treatment Not on file documented as of this encounter Goals Goal Patient Goal Type Associated Problems Recent Progress Patient-Stated? Author Have labs drawn Lifestyle No Kristel Lainez documented as of this encounter Visit Diagnoses Not on filedocumented in this encounter Care Teams Cistern Room Operator Relationship Specialty Start Date End Date Noris Bob MD [address] [place] [address] PCP - General Family Medicine 04/23/16 10/25/22 documented as of this encounter
--- OUTSIDE RECORDS SUMMARY | 2024-06-26 02:23 | XMS_ITS | Encounter Summary ---
Author Organization [facility] Address [address] [address] Care Team Providers Care Information Systems Architect Name Role Phone Noris Bob MD Primary Care Provider Reason for Visit * Reason Onset Date Comments Returned Call 02/25/2022 Encounter Details Date Type Department Care Team (Late st Contact Info) Description 02/25/2022 Telephone [facility] Medical [facility] - Family Medicine [address] [place] [address] Noris Bob MD [address] [place] [phone] Returned Call Social History Tobacco Use Types Packs/Day Years [...] Telephone Encounter - Dawn Sebastian PA-C - 02/25/2022 10:18 AM CDT That is perfect. I will still put in a referral right now as it can take 3-6 months to get into [facility]. She can call them at the # below to set up an apt for next year which I would advise doing right now. [facility] [address] [facility], [address] [address] * Telephone Encounter - Julee Harris - 02/25/2022 8:15 AM CDT Patient returning call from office Patient states she has not met her deductible this year and colo guard would not be covered until deductible is met (600.00) Patient states she is going to go ahead with getting colonoscopy instead but is unable to do it this year can not take off work. She will do colonoscopy next year fyi documented in this encounter Plan of Treatment Not on file documented as of this encounter Goals Goal Patient Goal Type Associated Problems Recent Progress Patient-Stated? Author Have labs drawn Lifestyle No Kristel Lainez documented as of this encounter Visit Diagnoses Diagnosis Screen for colon cancer- Primary Special screening for malignant neoplasms, colon documented in this encounter Care Teams Information Systems Architect Relationship Specialty Start Date End Date Noris Bob MD [address] [place] [phone] PCP - General Family Medicine 04/23/16 10/25/22 documented as of this encounter
--- OUTSIDE RECORDS SUMMARY | 2024-06-26 02:23 | XMS_ITS | Encounter Summary ---
Author Organization [facility] Address [address] [place] [address] Care Team Providers Care Managing Director Name Role Phone Unavailable Primary Care Provider Unavailabl e Reason for Visit * Reason Comments Refill Request Encounter Details Date Type Department Care Team (Late st Contact Info) Description 11/18/2022 Refill [facility] - Family Medicine [address] [place] [address] Noris Bob MD [address] [place] [phone] Refill Request Social History Tobacco Use Types [...] Telephone Encounter - Noris Bob MD - 11/18/2022 12:24 PM CDT Due for appt. Prior reminder already. Please call patient and schedule follow up. Refill denied until appt. * Telephone Encounter - Marsha De Jesus LPN - 11/18/2022 9:11 AM CDT LRF :10/20 RONEL :12/25/21 Next OV : none documented in this encounter Plan of Treatment Not on file documented as of this encounter Goals Goal Patient Goal Type Associated Problems Recent Progress Patient-Stated? Author Have labs drawn Lifestyle No Kristle Lainez documented as of this encounter Visit Diagnoses Diagnosis Prediabetes Other abnormal glucose documented in this encounter
--- OUTSIDE RECORDS SUMMARY | 2024-06-26 02:23 | XMS_ITS | Encounter Summary ---
Author Organization [facility] Address [address] [place] [address] Care Team Providers Care Admissions Representative Name Role Phone Noris Bob MD Primary Care Provider [phone] Reason for Visit * Reason Comments Refill Request Encounter Details Date Type Department Care Team (Late st Contact Info) Description 06/29/2022 Refill [facility] Medical [facility] - Family Medicine [address] [place] [address] Noris Bob MD [address] [place] [phone] Refill Request Social History Tobacco Use [...] Telephone Encounter - Dawn Sebastian PA-C - 06/30/2022 12:33 PM MARKING MACHINE OPERATOR due for f/u visit. please call and schedule ING MACHINE OPERATOR * Telephone Encounter - Marsha De Jesus LPN - 06/30/2022 11:43 AM MARKING MACHINE OPERATOR LRF :03/29 RONEL :12/25 Next OV : none ING MACHINE OPERATOR documented in this encounter Plan of Treatment Not on file documented as of this encounter Goals Goal Patient Goal Type Associated Problems Recent Progress Patient-Stated? Author Have labs drawn Lifestyle No MigelKristel barraza documented as of this encounter Visit Diagnoses Diagnosis Prediabetes Other abnormal glucose documented in this encounter Care Teams Admissions Representative Relationship Specialty Start Date End Date Noris Bob MD [address] [place] [phone] PCP - General Family Medicine 04/23/16 10/25/22 documented as of this encounter
--- OUTSIDE RECORDS SUMMARY | 2024-06-26 02:23 | XMS_ITS | Encounter Summary ---
Author Organization [facility] Address [address] [facility] [place] [address] Care Team Providers Care Yarn Mercerizer Operator Helper Name Role Phone Unavailable Primary Care Provider Unavailabl e Reason for Visit * Reason Comments Refill Request Encounter Details Date Type Department Care Team (Late st Contact Info) Description 04/13/2023 Refill [facility] - Family Medicine [address] [place] [phone] Noris Bob MD [address] [place] [phone] Refill Request Social History Tobacco Use Types [...]
--- OUTSIDE RECORDS SUMMARY | 2024-06-26 02:23 | XMS_ITS | Encounter Summary ---
Author Organization [facility] Address [address] [facility] [place] [address] Care Team Providers Care Field Care Coordinator Name Role Phone Noris Bob MD Primary Care Provider [phone] Reason for Visit * Reason Comments Med Change Request Encounter Details Date Type Department Care Team (Late st Contact Info) Description 09/21/[address] [facility] Medical [facility] - Family Medicine [address] [place] [address] Noris Bob MD [address] [place] [phone] Med Change Request Social History Tobacco Use Types Packs/Day [...] encounter Miscellaneous Notes * Telephone Encounter - Andrey Plata - 09/21/2022 4:34 PM CDT MED REFILL PER PHARMACY REQUESTING 90 DAY SUPPLY FOR METFORMIN FILLED 09/07/22. CALLED PT & LEFT MESSAGE TO CALL THE OFFICE TO SCHEDULE AN APPT & SENT HER A MYCHART MESSAGE WELL IN [place]OPES THAT SHE WILL SEE OR CHECK ONE OF THEM. documented in this encounter Plan of Treatment Not on file documented as of this encounter Goals Goal Patient Goal Type Associated Problems Recent Progress Patient-Stated? Author Have labs drawn Lifestyle No Kristel Lainez documented as of this encounter Visit Diagnoses Diagnosis Prediabetes Other abnormal glucose documented in this encounter Care Teams Field Care Coordinator Relationship Specialty Start Date End Date Noris Bob MD [address] [place] [phone] PCP - General Family Medicine 04/23/16 10/25/22 documented as of this encounter
--- OUTSIDE RECORDS SUMMARY | 2024-06-26 02:23 | XMS_ITS | Encounter Summary ---
Author Organization [facility] Address [address] [facility] [place] [address] Care Team Providers Care Field Talent Qualification Specialist Name Role Phone Noris Bob MD Primary Care Provider [phone] Reason for Visit * Reason Comments Refill Request Encounter Details Date Type Department Care Team (Late st Contact Info) Description 09/06/2022 Refill [facility] Medical [facility] - Family Medicine [address] [place] [address] Noris Bob MD [address] [place] [phone] Refill Request Social History Tobacco Use [...] Telephone Encounter - Dawn Sebastian PA-C - 09/07/2022 8:43 AM CDT 3rd refill stating she needs to have OV. overdue. DM, HTN documented in this encounter Plan of Treatment Not on file documented as of this encounter Goals Goal Patient Goal Type Associated Problems Recent Progress Patient-Stated? Author Have labs drawn Lifestyle No Kristel Lainez documented as of this encounter Visit Diagnoses Diagnosis Prediabetes Other abnormal glucose documented in this encounter Care Teams Field Talent Qualification Specialist Relationship Specialty Start Date End Date Noris Bob MD [address] [place] [phone] PCP - General Family Medicine 04/23/16 10/25/22 documented as of this encounter
--- OUTSIDE RECORDS SUMMARY | 2024-06-26 02:23 | XMS_ITS | Encounter Summary ---
Author Organization [facility] Address [address] [facility] [address] Care Team Providers Care Supervisor Stitching Department Name Role Phone Noris Bob MD Primary Care Provider [phone] Reason for Visit * Reason Onset Date Comments Update 05/30/2021 Encounter Details Date Type Department Care Team (Late st Contact Info) Description 05/30/2021 Telephone [facility] Medical [facility] - Family Medicine [address] [place] [address] Noris Bob MD [address] [place] [phone] Update Social History Tobacco Use Types Packs/Day Years [...] Encounter - Marsha De Jesus LPN - 06/03/2021 1:47 PM CLASSIFICATION CLERK LMOR SIFICATION CLERK * Telephone Encounter - Noris Bob MD - 06/02/2021 5:35 PM CST Please call her about this and double check so we can get her in with additional care as needs. SIFICATION CLERK * Telephone Encounter - Andrey Plata - 05/30/2021 12:35 PM CST FYI SIFICATION CLERK * Telephone Encounter - Rebecca Mark - 05/30/2021 11:05 AM CST Who is calling? [facility] home health What is the reason for call? Patient could not continue home health therapy this week due to no insurance Expected Response from the Clinic? ( ex. Call back, etc..) Please advise SIFICATION CLERK documented in this encounter Plan of Treatment Not on file documented as of this encounter Goals Goal Patient Goal Type Associated Problems Recent Progress Patient-Stated? Author Have labs drawn Lifestyle No Kristel Lainez documented as of this encounter Visit Diagnoses Not on filedocumented in this encounter Care Teams Supervisor Stitching Department Relationship Specialty Start Date End Date Noris Bob MD [address] [place] [phone] PCP - General Family Medicine 04/23/16 10/25/22 documented as of this encounter
--- OUTSIDE RECORDS SUMMARY | 2024-06-26 02:23 | XMS_ITS | Encounter Summary ---
Author Organization [facility] Address [address] [place] [address] Care Team Providers Care Interior Design Teacher Name Role Phone Noris Bob MD Primary Care Provider [phone] Encounter Details Date Type Department Care Team (Late st Contact Info) Description 06/13/2021 2:15 PM PLASTICS WORKER Office Visit [facility] - Family Medicine [address] [place] [id number] Noris Bob MD [address] [place] [phone] Pneumonia due to COVID-19 virus (Primary Dx); On home O2; [id number] condition Social History Tobacco Use Types Packs/Day Years [...] Sign Reading Time Taken Comments Blood Pressure 133/80 06/13/2021 2:26 PM PLASTICS WORKER Pulse 86 06/13/2021 2:26 PM PLASTICS WORKER Temperature - - Respiratory Rate - - Oxygen Saturation 98% 06/13/2021 2:26 PM PLASTICS WORKER 1 liter O2 Inhaled Oxygen Concentration - - Weight 119.3 kg (263 lb) 06/13/2021 2:26 PM PLASTICS WORKER Height 171.5 cm (5' 7.5 ) 06/13/2021 2:26 PM PLASTICS WORKER Body Mass Index 40.58 06/13/2021 2:26 PM PLASTICS WORKER documented in this encounter Progress Notes * Noris Bob MD - 06/13/2021 2:44 PM CST SUBJECTIVE: Shaina Huynh is a 46 year old female who complains of CC: shortness of breath post COVID HPI: She has made steady progress since the last OV. Using O2 at night and ambulating. Rarely needsit now while sitting. Would like to go back to work in a week or so. She is working with PT to get her strength back and next week they are going to work on steps. 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 There are others who can do that. 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 Talks but other urena is stationary. Patient Active Problem List: Hypothyroidism Seasonal allergies [...] Social History Social History Narrative Works at [employer] OBJECTIVE: BP 133/80 Pulse 86 Ht 1.715 m (5' 7.5 ) Wt 119.3 kg (263 lb) SpO2 98% BMI 40.58 kg/m2 Height: 171.5cm (5' 7.5 ) BP Readings from Last 3 Encounters: 06/13/21 133/80 05/30/21 131/87 04/08/21 128/77 Wt Readings from Last 3 Encounters: 06/13/21 119.3 kg (263 lb) 05/30/21 118.4 kg (261 lb) 04/08/21 131.5 kg (290 lb) General appearance - alert, well appearing, and in no distress Mental Status -alert and oriented ENT - normal canals, normal TM B, normal orophayrgeal mucosa Neck - supple, no significant adenopathy, no thyromegaly Lungs - clear to auscultation, markedly decreased air movement, symmetric air entry, non-labored resp effort Heart - normal rate, regular rhythm, normal S1, S2, no murmurs, rubs, clicks or gallops ASSESSMENT AND PLAN: ICD-10-CM 1. Pneumonia due to COVID-19 virus U07.1 AMB REFERRAL TO PULMONARY REHAB J12.82 2. On home O2 Z99.81 AMB REFERRAL TO PULMONARY REHAB 3. [id number] condition U09.9 Orders Placed This Encounter ??? AMB REFERRAL TO PULMONARY REHAB I think she should be able to return to work with some modification 06/23/21. She does need an O2 concentrator. O2 sat at rest talking without O2 for 10 minutes was 92-95% On ambulation without she desats to 85% still. In addition, I do want her to complete pulmonary rehab to maximize her day to day function. There are no Patient Instructions on file [...] MOUTH EVERY DAY 90 tablet 4 ??? Oxygen Lueders 3-6 L/min into the nose No current facility-administered medications for this visit. Return in about 2 months (around 08/14/2021). TICS WORKER documented in this encounter Plan of Treatment Not on file documented as of this encounter Goals Goal Patient Goal Type Associated Problems Recent Progress Patient-Stated? Author Have labs drawn Lifestyle No Kristel Lainez documented as of this encounter Visit Diagnoses Diagnosis Pneumonia due to COVID-19 virus- Primary On home O2 Dependence on supplemental oxygen [id number] condition documented in this encounter Care Teams Interior Design Teacher Relationship Specialty Start Date End Date Noris Bob MD [address] [place] [phone] PCP - General Family Medicine 04/23/16 10/25/22 documented as of this encounter
--- OUTSIDE RECORDS SUMMARY | 2024-06-26 02:23 | XMS_ITS | Encounter Summary ---
Author Organization [facility] Address [address] [place] [address] Care Team Providers Care Moisture Conditioner Operator Name Role Phone Noris Bob MD Primary Care Provider [phone] Encounter Details Date Type Department Care Team (Latest Contact Info) Description 09/02/2021 Travel Social History Tobacco Use Types Packs/Day Years [...] COVID-19? No / Unsure 09/02/2021 12:00 PM MOTOR VEHICLE LICENCE EXAMINER documented as of this encounter Plan of Treatment Not on file documented as of this encounter Goals Goal Patient Goal Type Associated Problems Recent Progress Patient-Stated? Author Have labs drawn Lifestyle No Kristel Lainez documented as of this encounter Visit Diagnoses Not on filedocumented in this encounter Care Teams Moisture Conditioner Operator Relationship Specialty Start Date End Date Noris Bob MD [address] [place] [phone] PCP - General Family Medicine 04/23/16 10/25/22 documented as of this encounter
--- OUTSIDE RECORDS SUMMARY | 2024-06-26 02:24 | XMS_ITS | Encounter Summary ---
Author Organization [facility] Address [address] [place] [address] Care Team Providers Care Chief Order Dispatcher Name Role Phone Noris Bbo MD Primary Care Provider [phone] Encounter Details Date Type Department Care Team (Late st Contact Info) Description 04/08/2021 3:00 PM CDT - 04/08/2021 11:59 PM CDT Hospital Encounter [facility] [address] [place] [address] Chantell Pittman, [facility] [address] [place] [phone] Discharge Disposition: Home or Self Care Social History Tobacco Use Types Packs/Day Years [...] Sign Reading Time Taken Comments Blood Pressure 128/77 04/08/2021 3:13 PM CDT Pulse 95 04/08/2021 3:13 PM CDT Temperature 36.5 ??C (97.7 ??F) 04/08/2021 3:13 PM CD T Respiratory Rate 18 04/08/2021 3:13 PM CDT Oxygen Saturation 95% 04/08/2021 3:13 PM CDT Inhaled Oxygen Concentration - - Weight 131.5 kg (290 lb) 04/08/2021 3:13 PM CDT Height 172.1 cm (5' 7.75 ) 04/08/2021 3:13 PM CD T Body Mass Index 44.42 04/08/2021 3:13 PM CDT documented in this encounter Discharge Instructions * Patient Instructions* Chantell Pittman, BOSS DYER-MACHINERY ERECTOR - 04/08/2021 4:09 PM CDT Your strep test was positive today. Drink plenty of fluids and rest when able. May take Tylenol or Ibuprofen as directed per package instructions Warm salt water gargles Change toothbrush on day 3 of antibiotic (or after 6 doses) SEEK EMERGENCY CARE IF SEVERE SYMPTOMS PERSIST, SUCH , BUT NOT LIMITED TO: HIGH FEVER, NECK PAIN,SWELLING OF THE NECK, NECK TENDERNESS, DEVELOPMENT OF RASH, DIFFICULTY SWALLOWING, MENTAL STATUS CHANGES, SEVERE HEADACHE, CHANGES IN THE COLOR OF YOUR URINE, DECREASED URINATION, OR INABILITY TO SWALLOW SALIVA (MAY MANIFEST DROOLING IN CHILDREN) Today you were tested for COVID-19. ~~Please remain in self isolation, quarantined at home. If you have had a known positive contact with COVID POSITVE with out mask greater than 15 mins you must remain on QUARANTINE until its been 14 days since last known CONTACT as NEGATIVE results DOES NOT RELEASE YOU BEFORE THE 10 DAYS. Results may take up to 2-7 days to come back. Our staff will call you with results. Please consider signing up for [employer] ([email or web address]) and that you have a working voicemail box to receive messages. Having Certify set-up allows patients to view their test results. ? If you do test positive, you must remain in self isolation until the following have occurred: -10 days from symptom onset (or 10 days from the date you were tested if positive but asymptomatic) -24 hours without fever, without fever reducing medication (s) -Respiratory symptoms are improving You do NOT need to be retested for COVID-19 as this does not follow CDC recommendations. If you test negative, but are still having symptoms please remain in self- isolation until your symptoms are resolved. If you test negative but have had a known close exposure to COVID you have to continue to self quarantine until 14 days from your known exposure, if you develop symptoms while in the 14 day period, please be retested. If you test negative and have not had a close exposure you may return to activities following CDC guidelines (hand washing wear a mask and social distance). Aim to drink about half your body weight in ounces each day to stay well hydrated. Increase VitaminC , Zinc , Vitaminn D Treat Symtoms with OTC medications. Recommendations and Information The main treatment for respiratory infections of any kind is to rest, eat healthy, and drink plentyof fluids. Cold symptoms will likely last anywhere from 7-10 days with symptoms feeling much worse on days 3-5. Antibiotic medications do not cure a cold nor do antibiotic medications help to shortenthe symptoms of viral illness. Symptomatic treatments include: Increase Vitamins C,D , Zinc -Over the counter loratadine (Claritin) or cetirizine (Zyrtec) to reduce secretions. -Dextromethorphan (Robitussin) for cough -Guafenisin (Mucinex) to thin secretions -Acetaminophen (Tylenol), ibuprofen (Motrin, Advil), or Aleve (naproxen) for pain or fever. -The use of hypertonic saline to irrigate nasal passageways can be helpful. Over the counter systems include Neti Pot and Nasopure. Use with distilled water -Salt water gargles and throat lozenges can be helpful for sore throat. -To prevent spreading the illness to others cover your sneeze and cough into your arm and not your hand, don't allow others to eat or drink with the same utensils or glass, and use hand enterprise sales executive before touching people or common surfaces. -Warm packs to face to facilitate sinus drainage -Follow up with your pcp in 1 week Or sooner if symptoms worsen or are not improving as planned. GO TO ER with any WORSENING SYMPTOMS such as SOB , Chest pains , difficultly breathing, unable to stay hydrated no peeing greater than 12 hours. Patient Education Strep Throat HAND ALTERATIONS TAILOR: Strep throat is a throat infection caused by bacteria. It is easily spread from person to person. Common symptoms include the following: ?? Sore, red, and swollen throat ?? Fever and headache ?? Upset stomach, abdominal pain, or vomiting ?? White or yellow patches or blisters in the back of your throat ?? Tender, swollen lumps on the sides of your neck or jaw ?? Throat pain when you swallow Call 911 for any of the following: ?? You have trouble breathing. Seek care immediately if: ?? You have new symptoms like a bad headache, stiff neck, chest pain, or vomiting. ?? You are drooling because you cannot swallow your spit. Contact your healthcare provider if: ?? You have a fever. ?? You have a rash or ear pain. ?? You have green, yellow-brown, or bloody mucus when you cough or blow your nose. ?? You are unable to drink anything. ?? You have questions or concerns about your condition or care. Treatment for strep throat may include antibiotic medicine to treat your strep throat. You should feel better within 2 to 3 days after you start antibiotics. You may return to work or school 24 hoursafter you start antibiotics. Manage strep throat: ?? Use lozenges, ice, soft foods, or popsicles to soothe your throat. ?? Drink juice, milk shakes, or soup if your throat is too sore to eat solid food. Drinking liquidscan also help prevent dehydration. ?? Gargle with salt water. Mix ?? teaspoon salt in a glass of warm water and gargle. This may help reduce swelling in your throat. ?? Do not smoke. Nicotine and other chemicals in cigarettes and cigars can cause lung damage and make your symptoms worse. Ask your healthcare provider for information if you currently smoke and needhelp to quit. E-cigarettes or smokeless tobacco still contain nicotine. Talk to your healthcare provider before you use these products. Prevent the spread of strep throat: ?? Wash your hands often. Use soap and water. Wash your hands after you use the bathroom, change a child's diapers, or sneeze. Wash your hands before you prepare or eat food. ?? Do not share food or drinks. Replace your toothbrush after you have taken antibiotics for 24 hours. Follow up with your healthcare provider as directed: Write down your questions so you remember to ask them during your visits. ?? Copyright [employer] 2020 Information is for End User's use only and may not be sold, redistributed or otherwise used for commercial purposes. All illustrations and images included in CareNotes?? are the copyrighted property of [employer] or [employer] The above information is an optometric aide only. It is not intended as medical advice for individual conditions or treatments. Talk to your doctor, nurse or pharmacist before following any medical regimen to see if it is safe and effective for you. documented in this encounter Medications at Time of Discharge Medication Sig Dispensed Refills Start Date End Date Cetirizine HCl (ZYRTEC PO) levothyroxine (SYNTHROID) 75 MCG tablet TAKE 1 TABLET BY MOUTH EVERY DAY 90 tablet 4 08/07/2020 11/03/2021 penicillin v potassium (VEETIDS) 500 MG tablet Take 1 (one) tablet by mouth 2 times daily for 10 days 20 tablet 04/08/2021 04/18/2021 documented as of this encounter Progress Notes * Chantell Pittman APRN-CNP - 04/08/2021 3:10 PM CDT Images from the original note were not included. [facility] History of Present Illness Patient Identification Shaina Huynh is a 46 year old female. PCP: Noris Bob MD Patient information was obtained from patient. History/Exam limitations: none. Patient presented to the Urgent Care ambulatory. Chief Complaint Cough Reason for Visit: cough HPI Shaina Huynh is a 46 year old who has a past medical history of Gestational diabetes and Thyroid disease. who presents to the Urgent Care today c/o cough. Onset was 1 day ago. Associating symptoms include congestion, SOB during cough, headache, changes in sense of smell, and sweating .Patient denies pain or OTC medication. Patient denies fevers, chills, chest pain, shortness of breath, n/v/d, and abdo ella pain. Patient's son and with same symptoms. Past Medical History: Diagnosis Date ??? Gestational diabetes ??? Thyroid disease Past Surgical History: Procedure Laterality Date ??? Section 2016 Family History Problem Relation Name Age of Onset ??? Diabetes Father ??? Heart Disease Father ??? Breast Cancer after age 50 or unknown Paternal Aunt ??? Breast Cancer after age 50 or unknown Maternal Aunt lung ca as well ??? Cancer - Breast Maternal Aunt ??? Cancer - Breast Other Mat Aunt Current Outpatient Medications Medication Sig Dispense Refill ??? Cetirizine HCl (ZYRTEC PO) ??? levothyroxine (SYNTHROID) 75 MCG tablet TAKE 1 TABLET BY MOUTH EVERY DAY 90 tablet 4 ??? penicillin v potassium (VEETIDS) 500 MG tablet Take 1 (one) tablet by mouth 2 times daily for 10 days 20 tablet 0 No current facility-administered medications for this encounter. No Known Allergies Social History Tobacco Use ??? Smoking status: Never Smoker ??? Smokeless tobacco: Never Used Substance Use Topics ??? Alcohol use: No Review of Systems ROS Constitutional: Positive for feeling sweaty. Negative for fatigue, fevers, chills, malaise. Eyes: Negative Ears, nose, mouth, and throat: Positive for congestion and decreased sense of smell. Negative for sore throat, ear pain, rhinorrhea, post nasal drainage, changes in taste Respiratory:Positive for cough, SOB during cough. Negative for wheezing Cardiovascular: Negative for chest pain Genitourinary: Negative for dysuria Gastrointestinal: Negative for poor appetite, nausea, vomiting, abdominal pain, diarrhea Musculoskeletal: Negative for pain Skin: Negative for rash Hematologic/lymphatic: Negative for swollen nodes Neurological: Positive for headaches Physical Exam BP 128/77 (BP SITE: RIGHT ARM, BP POSITION: SITTING, BP CUFF SIZE: 12) Pulse 95 Temp 97.7 ??F (36.5 ??C) (Temporal) Resp 18 Ht 1.721 m (5' 7.75 ) Wt 131.5 kg (290 lb) LMP 03/07/2021 SpO2 95% BMI 44.42 kg/m?? Physical Exam Vitals and nursing note reviewed. Constitutional: General: She is not in acute distress. Appearance: Normal appearance. She is not ill-appearing, toxic-appearing or diaphoretic. HENT: Head: Normocephalic and atraumatic. Right Ear: Hearing, tympanic membrane, ear canal and external ear normal. Left Ear: Hearing, tympanic membrane, ear canal and external ear normal. Nose: Nose normal. Mouth/Throat: Lips: [place]. Mouth: Mucous membranes are moist. Pharynx: Oropharynx is clear. Uvula midline. Posterior oropharyngeal erythema present. Tonsils: 0 on the right. 0 on the left. Eyes: Pupils: Pupils are equal, round, and reactive to light. Cardiovascular: Rate and Rhythm: Normal rate and regular rhythm. Heart sounds: Normal heart sounds. No murmur heard. Pulmonary: Effort: Pulmonary effort is normal. Breath sounds: Normal breath sounds and air entry. No decreased breath sounds, wheezing, rhonchi orrales. Musculoskeletal: Cervical back: Normal range of motion and neck supple. Lymphadenopathy: Cervical: No cervical adenopathy. Skin: General: Skin is warm and dry. Capillary Refill: Capillary refill takes less than 2 seconds. Neurological: Mental Status: She is alert and oriented to person, place, and time. Psychiatric: Behavior: Behavior normal. Behavior is cooperative. Procedures Procedures Lab/SPO2 Interpretation Hospital Encounter on 04/08/21 STREP A SCREEN - POCT (IP) URGENT CARE Result Value Ref Range Strep A Rapid POCT Positive (Abnormal) Negative QC Verified Yes Yes Progress Notes Strep test positive. Prescription for penicillin sent to pharmacy. Patient advise of contagious precautions. COVID testing performed today in Urgent Care. Recommend symptomatic treatment and rest. Advised patient of isolation guidelines, self-care, worsening symptoms, and follow up. Patient verbalized understanding and agrees with plan of care. Patient is hemodynamically stable and non-septic appearing.Pt. is appropriate for discharge home atthis time in the setting of strict return/follow-up precautions to include s/s warranting immediateemergency department evaluation. Medical Decision Making I have reviewed the: Nursing Notes, Vitals. I have interpreted the following results: Oxygen Saturation. Assessment ICD-10-CM 1. Strep pharyngitis J02.0 STREP A SCREEN - POCT (IP) URGENT CARE 2. Encounter for laboratory testing for COVID-19 virus Z20.822 SARS-COV-2 (COVID-19) INTERNAL Plan Orders Placed This Encounter ??? SARS-COV-2 (COVID-19) INTERNAL Standing Status: Standing Number of Occurrences: 1 Order Specific Question: Release to patient Answer: Immediate Order Specific Question: Is the patient experiencing any symptoms consistent with COVID (eg. Fever,cough, shortness of breath)? Answer: Yes Order Specific Question: Date of symptoms onset? Answer: 04/07/2021 Order Specific Question: Symptoms as described by CDC. (Select all that apply) Answer: Cough [[id number]] Order Specific Question: Symptoms as described by CDC. (Select all that apply) Answer: Fever over 100.4 F [[id number]] Order Specific Question: Hospitalized for COVID-19? Answer: No Order Specific Question: Admitted to ICU for COVID-19? Answer: No Order Specific Question: First COVID-19 test? 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 Answer: No Order Specific Question: Resident in a congregate care setting? Answer: No Order Specific Question: ? Answer: No Order Specific Question: Reason for test? Answer: Symptoms compatible with COVID-19. ??? STREP A SCREEN - POCT (IP) URGENT CARE Standing Status: Standing Number of Occurrences: 1 Order Specific Question: Release to patient Answer: Immediate ??? penicillin v potassium (VEETIDS) 500 MG tablet Sig: Take 1 (one) tablet by mouth 2 times daily for 10 days Dispense: 20 tablet Refill: 0 Your strep test was positive today. Drink plenty of fluids and rest when able. May take Tylenol or Ibuprofen as directed per package instructions Warm salt water gargles Change toothbrush on day 3 of antibiotic (or after 6 doses) Use alternate method of control while on antibiotics and one week after finishing last dose, if appropriate. SEEK EMERGENCY CARE IF SEVERE SYMPTOMS PERSIST, SUCH , BUT NOT LIMITED TO: HIGH FEVER, NECK PAIN,SWELLING OF THE NECK, NECK TENDERNESS, DEVELOPMENT OF RASH, DIFFICULTY SWALLOWING, MENTAL STATUS CHANGES, SEVERE HEADACHE, CHANGES IN THE COLOR OF YOUR URINE, DECREASED URINATION, OR INABILITY TO SWALLOW SALIVA (MAY MANIFEST DROOLING IN CHILDREN) Today you were tested for COVID-19. ~~Please remain in self isolation, quarantined at home. If you have had a known positive contact with COVID POSITVE with out mask greater than 15 mins you must remain on QUARANTINE until its been 14 days since last known CONTACT as NEGATIVE results DOES NOT RELEASE YOU BEFORE THE 10 DAYS. Results may take up to 2-7 days to come back. Our staff will call you with results. Please consider signing up for [employer] ([email or web address]) and that you have a working voicemail box to receive messages. Having [employer] set-up allows patients to view their test results. ? If you do test positive, you must remain in self isolation until the following have occurred: -10 days from symptom onset (or 10 days from the date you were tested if positive but asymptomatic) -24 hours without fever, without fever reducing medication (s) -Respiratory symptoms are improving You do NOT need to be retested for COVID-19 as this does not follow CDC recommendations. If you test negative, but are still having symptoms please remain in self- isolation until your symptoms are resolved. If you test negative but have had a known close exposure to COVID you have to continue to self quarantine until 14 days from your known exposure, if you develop symptoms while in the 14 day period, please be retested. If you test negative and have not had a close exposure you may return to activities following CDC guidelines (hand washing wear a mask and social distance). Aim to drink about half your body weight in ounces each day to stay well hydrated. Increase VitaminC , Zinc , Vitaminn D Treat Symtoms with OTC medications. Recommendations and Information The main treatment for respiratory infections of any kind is to rest, eat healthy, and drink plentyof fluids. Cold symptoms will likely last anywhere from 7-10 days with symptoms feeling much worse on days 3-5. Antibiotic medications do not cure a cold nor do antibiotic medications help to shortenthe symptoms of viral illness. Symptomatic treatments include: Increase Vitamins C,D , Zinc -Over the counter loratadine (Claritin) or cetirizine (Zyrtec) to reduce secretions. -Dextromethorphan (Robitussin) for cough -Guafenisin (Mucinex) to thin secretions -Acetaminophen (Tylenol), ibuprofen (Motrin, Advil), or Aleve (naproxen) for pain or fever. -The use of hypertonic saline to irrigate nasal passageways can be helpful. Over the counter systems include Neti Pot and Nasopure. Use with distilled water -Salt water gargles and throat lozenges can be helpful for sore throat. -To prevent spreading the illness to others cover your sneeze and cough into your arm and not your hand, don't allow others to eat or drink with the same utensils or glass, and use hand enterprise sales executive before touching people or common surfaces. -Warm packs to face to facilitate sinus drainage -Follow up with your pcp in 1 week Or sooner if symptoms worsen or are not improving as planned. GO TO ER with any WORSENING SYMPTOMS such as SOB , Chest pains , difficultly breathing, unable to stay hydrated no peeing greater than 12 hours. Follow up with Noris Bob MD prn if symptoms persist, sooner if symptoms worsen. AVS reviewed with patient. The Patient indicates understanding of these issues and agrees with the plan. Patient discharged to Home. JUAN ANTONIO Cabral 04/08/2021 4:39 PM documented in this encounter Miscellaneous Notes * Addendum Note - Kiersten Mark CPC - 04/08/2021 11:59 PM CDTEncounter addended by: Kiersten Mark CPC on: 04/09/2021 12:37 PM Actions taken: Visit diagnoses modified, Charge Capture section accepted documented in this encounter Plan of Treatment Not on file documented as of this encounter Goals Goal Patient Goal Type Associated Problems Recent Progress Patient-Stated? Author Have labs drawn Lifestyle No Kristel Lainez documented as of this encounter Procedures Procedure Name Priority Date/Time Associated Diagnosis Comments STREP A SCREEN - POCT (IP) URGENT CARE Routine 04/08/2021 4:38 PM CDT Strep pharyngitis SARS-COV-2 (COVID-19) IN HOUSE Routine 04/08/2021 3:36 PM CDT Encounter for laboratory testing for COVID-19 virus documented in this encounter Results * (ABNORMAL) STREP A SCREEN - POCT (IP) URGENT CARE (04/08/2021 4:38 PM CDT) Strep A Rapid POCT Positive( A) Negative [facility] QC Verified Yes Yes [facility] Throat ENTIRE THROAT (SURFACE REGION OF NECK) / Unknown 04/08/2021 4:38 PM CDT Chantell ROMANO LAB - POINT OF CARE ORDERABLES [facility] [address] [place] [address] * (ABNORMAL) SARS-COV-2 (COVID-19) INTERNAL (04/08/2021 3:36 PM CDT) COVID-19 PCR Detected( AA) Not detected 04/09/2021 5:50 AM CDT [facility] Microbiology SPECIMEN FROM NASOPHARYNGEAL STRUCTURE / Unknown Collection / Unknown 04/08/2021 3:36 PM CDT 04/08/2021 3:36 PM CDT Narrative [facility] - 04/09/2021 5:50 AM CDT This nucleic acid amplification assay performance was validated by [facility]. This test has been authorized [...] assay are available upon request. Chantell Pittman APRN-MACHINERY ERECTOR LAB - MICROBIO LOGY ORDERABLES [facility] [address] [place] [address], [facility] [phone] documented in this encounter Visit Diagnoses Diagnosis Strep pharyngitis- Primary Streptococcal sore throat Encounter for laboratory testing for COVID-19 virus COVID-19 documented in this encounter Additional Health Concerns Infection Onset Date Last Indicated Resolved Time COVID-19 Under Investigation 04/08/2021 04/08/2021 04/09/2021 5:50 AM CDT documented as of this encounter Care Teams Chief Order Dispatcher Relationship Specialty Start Date End Date Noris Bob MD [address] [place] [id number] PCP - General Family Medicine 04/23/16 10/25/22 documented as of this encounter
--- OUTSIDE RECORDS SUMMARY | 2024-06-26 02:24 | XMS_ITS | Encounter Summary ---
Author Organization [facility] Address [address] [place] [address] Care Team Providers Care Project Archivist Name Role Phone Noris Bob MD Primary Care Provider [phone] Reason for Visit * Reason Comments Physical pt appt for physical Medication Check pharmacy confirmed Encounter Details Date Type Department Care Team (Late st Contact Info) Description 02/14/2021 9:20 AM CDT Office Visit [facility] - Family Medicine [address] [place] [id number] Dawn Sebastian, ANTONIO [address] [place] [phone] Encounter for annual physical exam (Primary Dx); Hypothyroidism, unspecified type; Prediabetes; Screening for lipid disorders Social History Tobacco Use Types Packs/Day Years [...] Sign Reading Time Taken Comments Blood Pressure 136/82 02/14/2021 9:26 AM CDT Pulse 80 02/14/2021 9:26 AM CDT Temperature 36.7 ??C (98 ??F) 02/14/2021 9:26 AM CDT Respiratory Rate 16 02/14/2021 9:26 AM CDT Oxygen Saturation 97% 02/14/2021 9:26 AM CDT Inhaled Oxygen Concentration - - Weight 132.9 kg (293 lb) 02/14/2021 9:26 AM CDT Height 171.5 cm (5' 7.5 ) 02/14/2021 9:26 AM CDT Body Mass Index 45.21 02/14/2021 9:26 AM CDT documented in this encounter Patient Instructions * Patient Instructions* Dawn Sebastian PA-C - 02/14/2021 9:55 AM CDT Will let you know about colon cancer screening Attached are OBGYN in office Foot - stretching after you get up, ibuprofen as needed, heel cups, good insoles in soles. If not going away/getting worse let me know. documented in this encounter Progress Notes * Dawn Sebastian PA-C - 02/14/2021 9:22 AM CDT SUBJECTIVE: Shaina Huynh is a 46 year oldfemale is here today for : Chief Complaint Patient presents with ??? Physical pt appt for physical ??? Medication Check pharmacy confirmed HPI: Pt here for her annual physical c./o heel/sole pain when she wakes up in the morning. Better once she starts walking. Denies chest pain, shortness of breath, palpitations, changes in vision, claudication. Occ GARCÍA. Rare. Take coffee or ibu and will resolve Occ swelling in bl akles. Goes away with elevation or rest in 1 hr. 1-2 days out of week will cry. Denies anxiousness, sadness, worry. Thinks she may be going through menopause. Some hot flashes she believes. A1c 6.3 No issues with daily BM. Denies pain or blood. No hx/fhx of CRC. No issues urination. Doing meal replacement shakes for breakfast. Eating dinner late usually less than 1 hr before bed. works late. Patient Active Problem List: BMI 40.0-44.9, adult Hypothyroidism Abnormal glucose Obesity Seasonal allergies Allergies: Patient has no known allergies. Past Medical History: Diagnosis Date ??? Gestational diabetes Past Surgical History: Procedure Laterality Date ??? Section 2016 Family History Problem Relation Name Age of Onset ??? Diabetes Father ??? Heart Disease Father ??? Breast Cancer after age 50 or unknown Paternal Aunt ??? Breast Cancer after age 50 or unknown Maternal Aunt lung ca as well ??? Cancer - Breast Maternal Aunt ??? Cancer - Breast Other Mat Aunt Social History Socioeconomic History ??? Marital status: Spouse name: Not on file ??? Number of children: Not on file ??? Years of education: Not on file ??? Highest education level: Not on file Occupational History ??? Not on file Tobacco Use ??? Smoking status: Never Smoker ??? Smokeless tobacco: Never Used Substance and Sexual Activity ??? Alcohol use: No ??? Drug use: No ??? Sexual activity: Not on file Other Topics Concern ??? Not on file Social History Narrative Works at [employer] [place] Review of Systems: Constitutional: No fatigue, fevers, chills or weight change Psych: No anxiousness, nervousness, sadness Eyes: No vision changes ENT: No nasal congestion/drainage, sinus pain or sore throat. Cardiovascular: No chest pain, palpitations Respiratory: No shortness of breath, cough, wheezing Gastrointestinal: No nausea, vomiting, abdominal pain, change in bowel habits, black or bloody stools Genito-Urinary ROS: Denies urinary frequency, dysuria, hematuria, Patient's last menstrual period was 01/27/2021. Musculoskeletal ROS: No muscle weakness, muscle tenderness, joint pain Neurological: No headaches, dizziness, confusion, numbness, tingling Skin: No rashes, itching or dry skin OBJECTIVE: BP 136/82 Pulse 80 Temp 98 ??F (36.7 ??C) Resp 16 Ht 1.715 m (5' 7.5 ) Wt 132.9 kg (293 lb) SpO2 97% BMI 45.21 kg/m2 Height: 171.5 cm (5' 7.5 ) BP Readings from Last 3 Encounters: 02/14/21 136/82 07/28/19 130/59 11/23/18 117/65 Wt Readings from Last 3 Encounters: 02/14/21 132.9 kg (293 lb) 07/28/19 128.8 kg (284 lb) 11/23/18 126.7 kg (279 lb 6.4 oz) GENERAL: well groomed, healthy appearing PSYCH: patient alert & oriented, normal mood and affect, and in no acute distress. Normal attention span and concentration EYE: conjunctiva normal B/L, pupils equal B/L ENT: EACs andTMs normal B/L. Post-pharynx unremarkable. No lymphadenopathy. NECK: supple with FROM. No thyroid enlargement. CARDIOVASCULAR: RRR without murmurs. (-) pitting edema. No carotid bruits heard. RESPIRATORY: Respirations unlabored. CTAB. Good air exchange B/L. ABDOMEN: Soft, BS+ and normal, Non tender, not distended, no hepatomegaly and no splenomegaly MUSCULOSKELETAL: no clubbing/cyanosis. 5/5 heel, foot strength with 2+ pulses. No swelling, tenderness, brusing,deformity present. SKIN: warm and dry, no rashes in visible areas. Office Visit on 02/14/21 HEMOGLOBIN A1C - POINT OF CARE (HgbA1C) Result Value Ref Range Hemoglobin A1c POCT 6.3 % Expiration Date [id number] Lot # [id number] QC Verified Yes Yes ASSESSMENT AND PLAN: ICD-10-CM 1. Encounter for annual physical exam Z00.00 CBC WITH DIFFERENTIAL COMPREHENSIVE METABOLIC PANEL MICROALB/CREAT RATIO URINE RANDOM PANEL A1c 6.3 Discussed trying not to eat as late if possible. Pt working on small ways to be more active- [place] far away, walks on lunch break when she can. If labs good f/u in 6 mo for pre diabetes. heel pain description ML plantar fascitis. Pt has shoes with good insoles she normally wears to work. Discussed stretching, heel cups. If worsening/not getting better will let us know Discussed colonoscopy/cologuard. Will see if labs are okay before deciding. Defer HIV, Hep for now. No RF Gave names of both OBGYNs in office 2. Hypothyroidism, unspecified type E03.9 TSH T4 FREE Continue Levo 3. Screening for lipid disorders Z13.220 LIPID PROFILE 4. Abnormal glucose R73.09 HEMOGLOBIN A1C - POINT OF CARE (HgbA1C) Orders Placed This Encounter ??? CBC WITH DIFFERENTIAL ??? COMPREHENSIVE METABOLIC PANEL ??? LIPID PROFILE ??? TSH ??? T4 FREE ??? MICROALB/CREAT RATIO URINE RANDOM PANEL ??? HEMOGLOBIN A1C - POINT OF CARE (HgbA1C) Current Outpatient Medications: ??? Cetirizine HCl (ZYRTEC PO), , Disp: , Rfl: ??? levothyroxine (SYNTHROID) 75 MCG tablet, TAKE 1 TABLET BY MOUTH EVERY DAY, Disp: 90 tablet, Rfl: 4 Followup: Return in about 6 months (around 08/17/2021). Patient Instructions Will let you know about colon cancer screening Attached are OBGYN in office Foot - stretching after you get up, ibuprofen as needed, heel cups, good insoles in soles. If not going away/getting worse let me know. documented in this encounter Plan of Treatment Not on file documented as of this encounter Goals Goal Patient Goal Type Associated Problems Recent Progress Patient-Stated? Author Have labs drawn Lifestyle No Kristel Lainez documented as of this encounter Procedures Procedure Name Priority Date/Time Associated Diagnosis Comments MICROALB/CREAT RATIO URINE RANDOM PANEL Routine 02/14/2021 10:35 AM CDT Encounter for annual physical exam CBC W AUTO DIFFERENTIAL Routine 02/14/2021 10:35 AM CDT Encounter for annual physical exam COMPREHENSIVE METABOLIC PANEL Routine 02/14/2021 10:35 AM CDT Encounter for annual physical exam TSH Routine 02/14/2021 10:35 AM CDT Hypothyroidism, unspecified type T4 FREE Routine 02/14/2021 10:35 AM CDT Hypothyroidism, unspecified type LIPID PROFILE Routine 02/14/2021 10:35 AM CDT Screening for lipid disorders HEMOGLOBIN A1C - POINT OF CARE (AMB) Routine 02/14/2021 10:09 AM CDT Prediabetes documented in this encounter Results * MICROALB/CREAT RATIO URINE RANDOM PANEL (02/14/2021 10:35 AM CDT) Creatinine Urine 80.31 mg/dL LAB [facility] ACCOUNT [...] Resulting Agency Comment Lab Testing performed at: [address] ?? [place] [phone] Dawn Sebastian PA-C LAB - URINE CHEMI STRY ORDERABLES Performing Organization Address City/[facility]/ZIP Co de Phone Number [facility] ACCOUNT BILL [address] [place] [address] * T4 FREE (02/14/2021 10:35 AM CDT) T4 Free 0.88 0.70 - 1.48 ng/dL [facility] ACCOUNT BILL Comment:FASTING Blood BLOOD SPECIMEN / Unknown 02/14/2021 10:35 AM CDT 02/14/2021 Narrative Resulting Agency Comment Lab Testing performed at: [address] ?? [place] [phone] Dawn Sebastian PA-C LAB - CHEMISTRY O RDERABLES Performing Organization Address City/[facility]/ZIP Co de Phone Number [facility] ACCOUNT BILL [address] [place] [address] * TSH (02/14/2021 10:35 AM CDT) TSH 2.6294 0.35 - 4.94 uIU/mL [facility] ACCOUNT BILL Comment: FASTING Blood BLOOD SPECIMEN / Unknown 02/14/2021 10:35 AM CDT 02/14/2021 Narrative Resulting Agency Comment Lab Testing performed at: [place] [address] [address] ?? [place] [phone] Dawn Sebastian PA-C LAB - CHEMISTRY O RDERABLES Performing Organization Address [facility]/ZIP Co de Phone Number [facility] ACCOUNT BILL [address] [place] [address] * (ABNORMAL) LIPID PROFILE (02/14/2021 10:35 AM [...] Resulting Agency Comment Lab Testing performed at: [address] ?? [facility] [phone] Dawn Sebastian PA-C LAB - CHEMISTRY O RDERABLES Performing Organization Address [facility] Co de Phone Number [facility] ACCOUNT BILL [address] [place] [address] * (ABNORMAL) COMPREHENSIVE METABOLIC PANEL (02/14/2021 10:35 AM CDT) Glucose 119(H) 70 - 105 mg/dL [facility] ACCOUNT BILL BUN 14 7 - 18.7 mg/dL [facility] ACCOUNT BILL Creatinine 0.78 0.57 - 1.11 mg/dL [facility] ACCOUNT BILL eGFR by MDRD >60 >60 mL/min/1.7 3m2 [facility] ACCOUNT BILL eGFR by MDRD >60 >60 mL/min/1.7 3m2 [facility] ACCOUNT BILL Sodium 140 136 - 145 mmol/L [facility] ACCOUNT BILL Potassium 4.1 3.5 - 5.1 mmol/L [facility] ACCOUNT BILL Chloride 107 98 - 107 mmol/L [facility] ACCOUNT BILL CO2 22(L) 23 - 31 mmol/L [facility] ACCOUNT BILL Calcium 8.9 8.4 - 10.4 mg/dL [facility] ACCOUNT BILL Protein Total 7.1 6.4 - 8.3 gm/dL [facility] ACCOUNT BILL Albumin 4.1 3.5 - 5.2 gm/dL [facility] ACCOUNT BILL Bilirubin Total 0.3 0.2 - 1.2 mg/dL [facility] ACCOUNT BILL Alkaline Phosphatase 105 40 - 150 U/L [facility] ACCOUNT BILL AST 14 5 - 34 U/L [facility] ACCOUNT BILL ALT 15 0 - 61 U/L [facility] ACCOUNT BILL Comment:FASTING Blood BLOOD SPECIMEN / Unknown 02/14/2021 10:35 AM CDT 02/14/2021 Narrative Resulting Agency Comment Lab Testing performed at: [place] [address] [address] ?? [facility] [phone] Dawn Sebastian PA-C LAB - CHEMISTRY O RDERABLES [facility] ACCOUNT BILL [address] [place] [address] * (ABNORMAL) CBC WITH DIFFERENTIAL (02/14/2021 10:35 AM CDT) WBC 7.4 4.4 - 10.7 x10E9/L [facility] ACCOUNT BILL RBC 4.36 3.80 - 5.20 x10E12/L [facility] ACCOUNT BILL Hemoglobin 12.5 12.0 - 15.6 gm/dL [facility] ACCOUNT BILL Hematocrit 40.3 35.9 - 45.5 % [facility] ACCOUNT BILL MCV 92.4 80.7 - 98.3 fl [facility] ACCOUNT BILL MCH 28.7 26.7 - 34.0 pg [facility] ACCOUNT BILL MCHC 31.0 30.8 - 35.9 gm/dL [facility] ACCOUNT BILL RDW 14.0 12.1 - 14.9 % [facility] ACCOUNT BILL Platelet Count 190 153 - 416 x10E9/L [facility] ACCOUNT BILL Comment:MPV FL BLOOD ([facility]) 1 3.4 fl 9.4-12.9 H Granulocytes % 71.4 44.0 - 73.0 % [facility] ACCOUNT BILL Lymphocytes % 20.7 20.0 - 43.0 % [facility] ACCOUNT BILL Monocytes % 4.2(L) 5.0 - 13.0 % [facility] ACCOUNT BILL Eosinophils % 2.6 0.0 - 6.0 % [facility] ACCOUNT BILL Basophils % 0.7 0.0 - 2.0 % [facility] ACCOUNT BILL Granulocytes Absolute 5.28 2.01 - 7.14 x10E9/L [facility] ACCOUNT BILL Lymphocytes Absolute 1.53 1.07 - 3.94 x10E9/L [facility] ACCOUNT BILL Monocytes Absolute 0.31 0.26 - 1.07 x10E9/L [facility] ACCOUNT BILL Eosinophils Absolute 0.19 0 - 0.47 x10E9/L [facility] ACCOUNT BILL Basophils Absolute 0.05 0 - 0.08 x10E9/L [facility] ACCOUNT BILL Immature Granulocytes 0.4 0 - 1 % [facility] ACCOUNT BILL Immature Granulocytes Absolute 0.03 0.00 - 0.06 x10E9/L [facility] ACCOUNT BILL nRBC 0 /100 WBC [facility] ACCOUNT BILL Comment: FASTING Blood BLOOD SPECIMEN / Unknown 02/14/2021 10:35 AM CDT 02/14/2021 Narrative Resulting Agency Comment Lab Testing performed at: [address] ?? [facility] [phone] Dawn Sebastian PA-C LAB - HEMATOLOGY ORDERABLES [facility] ACCOUNT BILL [address] [place] [address] * HEMOGLOBIN A1C - POINT OF CARE (HgbA1C) (02/14/2021 10:09 AM CDT) Hemoglobin A1c POCT 6.3 % [facility] Expiration Date [id number] [facility] Lot # [id number] [facility] QC Verified Yes Yes [facility] Blood BLOOD SPECIMEN / Unknown 02/14/2021 10:09 AM CDT Dawn Sebastian PA-C LAB - POINT OF CA RE ORDERABLES [facility] [address] [phone] documented in this encounter Visit Diagnoses Diagnosis Encounter for annual physical exam- Primary Hypothyroidism, unspecified type Prediabetes Other abnormal glucose Screening for lipid disorders documented in this encounter Care Teams Project Archivist Relationship Specialty Start Date End Date Noris Bob MD [address] [place] [address] PCP - General Family Medicine 04/23/16 10/25/22 documented as of this encounter
--- OUTSIDE RECORDS SUMMARY | 2024-06-26 02:24 | XMS_ITS | Encounter Summary ---
Author Organization [facility] Address [address] [place] [address] Care Team Providers Care Basic Acoustic Analyst Name Role Phone Noris Bob MD Primary Care Provider [phone] Encounter Details Date Type Department Care Team (Late st Contact Info) Description 12/08/2020 8:15 PM CDT Video Visit [facility] [address] [place] [phone] Kia Ortiz APRN-OFFSET PRINTER [address] [place] [phone] Environmental and seasonal allergies Social History Tobacco Use Types Packs/Day Years Used Date Smoking Tobacco: Never Smokeless Tobacco: Never Alcohol Use Standard Drinks/Week Comments No 0 (1 standard drink = 0.6 oz pur e alcohol) Sex and Gender Information Value Date Recorded Sex Assigned at Not on file Gender Identity Not on file Sexual Orientation Not on file documented as of this encounter Patient Instructions * Patient Instructions* Kia rOtiz APRN-RAJENDRA - 12/08/2020 8:48 PM CDT Allergies Take all prescription medication as directed. You may take Zyrtec,or Lissette, or Xyzal during daytime daily and Benadryl at night to help with itching, runny nose, or other allergy symptoms. You can also try sudafed from behind the pharmacy counter to help with congestion/sinus pressure. Try to avoid going outside or being near allergen/irritant. Keep windows and doors in home and windows in car closed. If outside for extended period of timewhen arriving home change clothes and or shower/wash hair. Use humidifier at night to help with congestion and coughing. Drink plenty of fluids and get extra rest. If your symptoms worsen, persist, or you become concerned call PCP or go to urgent care. documented in this encounter Progress Notes * Kia Ortiz APRN-CNP - 12/08/2020 8:38 PM CDT [facility] Shaina Huynh is a 45 year old female who presents for evaluation: No chief complaint on file. Primary Care Physician is Noris Bob MD. SUBJECTIVE: Presents today to have a virtual visit for evaluation of allergy symptoms. Have seasonal allergies and symptoms come and go throughout the year and symptoms feel very similar to when allergy symptomsare worse. The last day have had some sneezing, itchy and watery eyes, sinus pressure, congestion, drainage, and runny nose. Also coughing now to clear drainage in throat. Symptoms have stayed about the same. Have tried sinus massage, OTC allergy medication which has helped a lot. Denies fatigue, fever, constant coughing, shortness of breath, loss of taste or smell, chills, or body aches. Son also had a runny nose for one day recently but now has improved. Patient reports that she feels ok. Past Medical History: Diagnosis Date ??? Gestational diabetes Patient Active Problem List: BMI 40.0-44.9, adult Hypothyroidism Abnormal glucose Current Outpatient Medications on File Prior to Visit Medication Sig Dispense Refill ??? Cetirizine HCl (ZYRTEC PO) ??? levothyroxine (SYNTHROID) 75 MCG tablet TAKE 1 TABLET BY MOUTH EVERY DAY 90 tablet 4 ??? Vit-Fe Xdu-ON-Ungbf (PROJECT ADMINISTRATIVE ASSISTANT-PNV-DHA) 28-1-215.8 MG CAPS Take 1 capsule by mouth once daily30 capsule 3 No current facility-administered medications on file prior to visit. Past Surgical History: Procedure Laterality Date ??? Section 2016 Social History Socioeconomic History ??? Marital status: [...] on file Social History Narrative Works at [employer] Social Determinants of Health Financial Resource Strain: ??? Difficulty of Paying Living Expenses: Food Insecurity: ??? Worried About Running Out of Food in the Last Year: ??? Ran Out of Food in the Last Year: Transportation Needs: ??? Lack of Transportation (Medical): ??? Lack of Transportation (Non-Medical): Physical Activity: ??? Days of Exercise per Week: ??? Minutes of Exercise per Session: Stress: ??? Feeling of Stress : Social Connections: ??? Frequency of Communication with Friends and Family: ??? Frequency of Social Gatherings with Friends and Family: ??? Attends Baptism Services: ??? Active Member of Clubs or Organizations: ??? Attends Club or Organization Meetings: ??? Marital Status: Intimate Partner Violence: ??? Fear of Current or Ex-Partner: ??? Emotionally Abused: ??? Physically Abused: ??? Sexually Abused: Family History Problem Relation Name Age of [...] MOUTH EVERY DAY 90 tablet 4 ??? Vit-Fe Pim-BR-Hmucf (PROJECT ADMINISTRATIVE ASSISTANT-PNV-DHA) 28-1-215.8 MG CAPS Take 1 capsule by mouth once daily30 capsule 3 No current facility-administered medications for this visit. Denies allergies REVIEW OF SYSTEMS: Review of Systems Constitutional: Negative. HENT: Positive for congestion. Negative for ear discharge, ear pain, hearing loss, nosebleeds, sinus pain, sore throat and tinnitus. Sinus pressure Runny nose Sneezing Ear pressure drainage Eyes: Negative. Itchy and watery eyes Small amount of eye drainage yesterday Respiratory: Positive for cough. Negative for sputum production, shortness of breath, wheezing and stridor. Cough only to clear drainage Cardiovascular: Negative. Gastrointestinal: Negative. Skin: Negative. OBJECTIVE: General appearance: alert, pleasant and in no distress. There were no vitals taken for this visit. Physical Exam Constitutional: Appearance: Normal appearance. Neurological: Mental Status: She is alert. No results found for this or any previous visit (from the past 24 hour(s)). ASSESSMENT: Encounter Diagnosis Name Primary? Environmental and seasonal allergies Yes PLAN: Allergies Take all prescription medication as directed. You may take Zyrtec,or Lissette, or Xyzal during daytime daily and Benadryl at night to help with itching, runny nose, or other allergy symptoms. You can also try sudafed from behind the pharmacy counter to help with congestion/sinus pressure. Try to avoid going outside or being near allergen/irritant. Keep windows and doors in home and windows in car closed. If outside for extended period of timewhen arriving home change clothes and or shower/wash hair. Use humidifier at night to help with congestion and coughing. Drink plenty of fluids and get extra rest. If your symptoms worsen, persist, or you become concerned call PCP or go to urgent care. No orders of the defined types were placed in this encounter. I have spent a total of 20 minutes. Time was spent reviewing medical history, performing physical exam, documenting, counseling/educating, reviewing plan of care. documented in this encounter Plan of Treatment Not on file documented as of this encounter Goals Goal Patient Goal Type Associated Problems Recent Progress Patient-Stated? Author Have labs drawn Lifestyle No Kristel Lainez documented as of this encounter Visit Diagnoses Diagnosis Environmental and seasonal allergies- Primary documented in this encounter Care Teams Basic Acoustic Analyst Relationship Specialty Start Date End Date Noris Bob MD [address] [place] [phone] PCP - General Family Medicine 04/23/16 10/25/22 documented as of this encounter
--- OUTSIDE RECORDS SUMMARY | 2024-06-26 02:24 | XMS_ITS | Encounter Summary ---
Author Organization [facility] Address [address] [place] [address] Care Team Providers Care Chute Feeder Name Role Phone Noris Bob MD Primary Care Provide r Miscellaneous, Not In File Unavailable Unava ilable Johnny Salgado MD Unavailable [phone] Reason for Referral * Diagnostic Imaging (Routine) - Closed Specialty Diagnoses / Procedures Referred By Contac t Referred To Contact Diagnoses History of COVID-19 Procedures XR Chest PA Lateral 2 Views Johnny Salgado MD [address] [place] [address] Phone: tel: fax: [address] [address] Referral ID Status Reason Start Date Expiration Date Visits Re quested Visits Authorized [id number] Closed 09/09/2021 10/09/2022 1 1 Reason for Visit * Diagnostic Imaging (Routine) - Closed Specialty Diagnoses / Procedures Referred By Contac t Referred To Contact Diagnoses History of COVID-19 Procedures XR Chest PA Lateral 2 Views Johnny Salgado MD [address] [place] [address] Phone: tel: fax: [address] [phone] Referral ID Status Reason Start Date Expiration Date Visits Re quested Visits Authorized [id number] Closed 09/09/2021 10/09/2022 1 1 Encounter Details Date Type Department Care Team (Latest Contact Info) Description 09/10/2021 1:57 PM CDT - 09/10/2021 11:59 PM CDT Hospital Encounter [facility] Diagnostic Imaging [address] [place] [address] [place] [address] [facility] [address] [place] [address] History of COVID-19 Discharge Disposition: Discharge to home or self care Social History Tobacco Use Types Packs/Day Years Used Date Smoking Tobacco: Never Smokeless Tobacco: Never Alcohol Use Standard Drinks/Week Comments No 0 (1 standard drink = 0.6 oz pur e alcohol) Comments No Sex and Gender Information Value Date Recorded Sex Assigned at Not on file Legal Sex Female 12:51 PM STAFFING ANALYST Gender Identity Not on file Sexual Orientation Not on file documented as of this encounter Medications at Time of Discharge acetaminophen (Tylenol Extra Strength) 500 mg tabletIndication s:Headache Disorder Take 1,000 mg by mouth every 6 (six) hours as needed for headaches. Indications: headache 05/13/2021 benzocaine-menth oL (CEPACOL) 15-3.6 mg lozenge Dissolve 1 lozenge in the mouth every 2 (two) hours as needed (Coughing) 100 lozenge 05/09/2021 benzonatate (TESSALON) 100 mg capsuleIndicatio ns:Cough Take 1 capsule (100 mg total) by mouth 3 (three) times a day as needed for cough 30 capsule 05/09/2021 guaiFENesin-dext romethorphan ER (MUCINEX DM) 600-30 mg tablet extended release 12 hr Take 1 tablet by mouth 2 (two) times a day 28 tablet 05/09/2021 levothyroxine (SYNTHROID) 75 mcg tablet 02/05/2021 oxygenIndication s:Dyspnea Administer 3-6 L/min into each nostril continuously. Indications: trouble breathing 05/12/2021 documented as of this encounter Discharge Disposition Disposition Code Departure Means Destination Discharge to home or self care documented in this encounter Plan of Treatment Not on file documented as of this encounter Procedures Procedure Name Priority Date/Time Associated Diagnosis Comments XR CHEST PA LATERAL 2 VIEWS Schedule Routine, Read Routine (OP Routine) 09/10/2021 2:06 PM CDT History of COVID-19 documented in this encounter Results * XR Chest PA Lateral 2 Views (09/10/2021 2:06 PM CDT) Anatomical Region Laterality Modality Body, Chest N/A Computed Radiogr aphy 09/10/2021 2:07 PM CDT Impressions 09/10/2021 2:07 PM CDT Negative study. Electronically signed by: Darrian Monsalve M.D. Narrative 09/10/2021 2:07 PM CDT EXAMINATION: XR CHEST PA LATERAL 2 VIEWS HISTORY: The patient is a 46 year old female who presents with shortness of breath. ??Comparison is made with the previous study dated 05/30/2021. TECHNIQUE: PA and lateral view of the chest. FINDINGS: Lungs clear. ??Cardiovascular structures unremarkable. Procedure Note Darrian Monsalve MD - 09/10/2021 EXAMINATION: XR CHEST PA LATERAL 2 VIEWS HISTORY: The patient is a 46 year old female who presents with shortness of breath. Comparison is made with the previous study dated 05/30/2021. TECHNIQUE: PA and lateral view of the chest. FINDINGS: Lungs clear. Cardiovascular structures unremarkable. IMPRESSION: Negative study. Electronically signed by: Darrian Monsalve M.D. Johnny Salgado MD IMG XR PROCEDURES Final Result documented in this encounter Visit Diagnoses Diagnosis History of COVID-19 documented in this encounter Care Teams Chute Feeder Relationship Specialty Start Date End Date Noris Bob MD [address] [place] [address] PCP - General 04/14/21 Miscellaneous, Not In File 05/09/21 [place] [address] [place] [address] Consulting Physician Pulmonary Disease 05/09/21 documented as of this encounter
--- OUTSIDE RECORDS SUMMARY | 2024-06-26 02:24 | XMS_ITS | Encounter Summary ---
Author Organization [facility] Address [address] [facility] [place] [address] Care Team Providers Care Fringe Knotter Name Role Phone Noris Bob MD Primary Care Provider Reason for Visit * Reason Onset Date Comments Scheduling 10/26/2019 Encounter Details Date Type Department Care Team (Late st Contact Info) Description 10/26/2019 Telephone [facility] - Family Medicine [address] [place] [address] Noris Bob MD [address] [place] [address] Scheduling Social History Tobacco Use Types Packs/Day Years [...] on filedocumented in this encounter Care Teams Fringe Knotter Relationship Specialty Start Date End Date Noris Bob MD [address] [place] [address] PCP - General Family Medicine 04/23/16 10/25/22 documented as of this encounter
--- OUTSIDE RECORDS SUMMARY | 2024-06-26 02:24 | XMS_ITS | Encounter Summary ---
Author Organization [facility] Address [address] [facility] [place] [address] Care Team Providers Care Research Associate Policy Name Role Phone Noris Bob MD Primary Care Provider [phone] Reason for Visit * Reason Onset Date Comments MEDICATION REFILL 05/14/2021 Encounter Details Date Type Department Care Team (Late st Contact Info) Description 05/14/2021 Refill [facility] - Family Medicine [address] [place] [address] Noris Bob MD [address] [place] [phone] MEDICATION REFILL Social History Tobacco Use Types Packs/Day Years [...] Encounter - Marsha De Jesus LPN - 05/14/2021 8:51 AM BIRTH CERTIFICATE CLERK Has one touch Meter Ok on lancets H CERTIFICATE CLERK documented in this encounter Plan of Treatment Not on file documented as of this encounter Goals Goal Patient Goal Type Associated Problems Recent Progress Patient-Stated? Author Have labs drawn Lifestyle No Kristel Lainez documented as of this encounter Visit Diagnoses Not on filedocumented in this encounter Care Teams Research Associate Policy Relationship Specialty Start Date End Date Noris Bob MD [address] [place] [address] PCP - General Family Medicine 04/23/16 10/25/22 documented as of this encounter
--- OUTSIDE RECORDS SUMMARY | 2024-06-26 02:24 | XMS_ITS | Encounter Summary ---
Author Organization [facility] Address [address] [facility] [place] [address] Care Team Providers Care Homogenizer Operator Name Role Phone Noris Bob MD Primary Care Provider [phone] Reason for Visit * Reason Onset Date Comments Home Health 05/15/2021 Encounter Details Date Type Department Care Team (Late st Contact Info) Description 05/15/2021 Telephone [facility] - Family Medicine [address] [place] [address] Noris Bob MD [address] [place] [phone] [facility] Social History Tobacco Use Types Packs/Day [...] Encounter - Marsha De Jesus LPN - 05/16/2021 7:50 AM DRAMA DIRECTOR LMOR A DIRECTOR * Telephone Encounter - Noris Bob MD - 05/16/2021 7:48 AM CST ok A DIRECTOR * Telephone Encounter - Julee Harris - 05/15/2021 4:10 PM CST Stephanie from [facility] calling in requesting additional auth for SN 1-2 times a week for 4 more weeks Would like to get a response back today so they can send them out tomorrow A DIRECTOR documented in this encounter Plan of Treatment Not on file documented as of this encounter Goals Goal Patient Goal Type Associated Problems Recent Progress Patient-Stated? Author Have labs drawn Lifestyle No Kristel Lainez documented as of this encounter Visit Diagnoses Not on filedocumented in this encounter Care Teams Homogenizer Operator Relationship Specialty Start Date End Date Noris Bob MD [address] [place] [address] PCP - General Family Medicine 04/23/16 10/25/22 documented as of this encounter
--- OUTSIDE RECORDS SUMMARY | 2024-06-26 02:24 | XMS_ITS | Encounter Summary ---
Author Organization [facility] Address [address] [facility] [place] [address] Care Team Providers Care Cleaner Carpet And Upholstery Name Role Phone Noris Bob MD Primary Care Provider [phone] Reason for Visit * Reason Onset Date Comments Letter for School or Work 04/09/2021 Patient Requested Call 04/09/2021 Returned Call 04/09/2021 Encounter Details Date Type Department Care Team (Late st Contact Info) Description 04/09/2021 Telephone [facility] [address] [place] [address] Radha Lynn, SYSTEM DEVELOPMENT ENGINEER-LAW ENFORCEMENT DIRECTOR [address] [place] [address] Letter for School or Work; Patient Requested Call; Returned Call Social History Tobacco Use Types [...] encounter Miscellaneous Notes * Telephone Encounter - Kathrin Williamson RN - 04/09/2021 12:03 PM CDT Return call to pt informed pt letter for work placed in chart , after receiving date of onset of symptoms * Telephone Encounter - Vanessa Del Castillo - 04/09/2021 10:32 AM CDT Who is calling? self What is the reason for call? Letter for work stating how long does she need to quarantine. Expected Response from the Clinic? Call back documented in this encounter Plan of Treatment Not on file documented as of this encounter Goals Goal Patient Goal Type Associated Problems Recent Progress Patient-Stated? Author Have labs drawn Lifestyle No Kristel Lainez documented as of this encounter Visit Diagnoses Not on filedocumented in this encounter Additional Health Concerns Infection Onset Date Last Indicated Resolved Time COVID-19 Under Investigation 04/08/2021 04/08/2021 04/09/2021 5:50 AM CDT COVID-19 Confirmed 04/08/2021 04/08/2021 4:33 AM CDT documented as of this encounter Care Teams Cleaner Carpet And Upholstery Relationship Specialty Start Date End Date Noris Bob MD [address] [place] [address] PCP - General Family Medicine 04/23/16 10/25/22 documented as of this encounter
--- OUTSIDE RECORDS SUMMARY | 2024-06-26 02:24 | XMS_ITS | Encounter Summary ---
Author Organization [facility] Address [address] [place] [address] Care Team Providers Care Rehab Therapy Manager Name Role Phone Noris Bob MD Primary Care Provider [phone] Encounter Details Date Type Department Care Team (Late st Contact Info) Description 11/28/2018 Orders Only [facility] - Family Medicine [address] [place] [address] Noris Bob MD [address] [place] [phone] Hypothyroidism, unspecified type Social History Tobacco Use Types Packs/Day Years Used Date Smoking Tobacco: Never Smokeless Tobacco: Never Alcohol Use Standard Drinks/Week Comments No 0 (1 standard drink = 0.6 oz pur e alcohol) Sex and Gender Information Value Date Recorded Sex Assigned at Not on file Gender Identity Not on file Sexual Orientation Not on file documented as of this encounter Plan of Treatment Scheduled Orders Name Type Priority Associated Diagnoses Orde r Schedule TSH Lab Routine Hypothyroidism, unspecified type Ordered: 11/28/2018 documented as of this encounter Goals Goal Patient Goal Type Associated Problems Recent Progress Patient-Stated? Author Have labs drawn Lifestyle No Kristel Lainez documented as of this encounter Visit Diagnoses Diagnosis Hypothyroidism, unspecified type- Primary documented in this encounter Care Teams Rehab Therapy Manager Relationship Specialty Start Date End Date Noris Bob MD [address] [place] [phone] PCP - General Family Medicine 10/27/16 4/30/23 documented as of this encounter
--- OUTSIDE RECORDS SUMMARY | 2024-06-26 02:24 | XMS_ITS | Referral Summary ---
Author Organization [facility] Address [address] [place] [address] Phone Care Team Providers Care Solder Technician Name Role Phone Noris Bob MD Primary Care Provide r Miscellaneous, Not In File Unavailable Unava ilable Johnny Salgado MD Unavailable Allergies No known active allergies Medications levothyroxine (SYNTHROID) 75 mcg tablet 1 Active benzocaine-menth oL (CEPACOL) 15-3.6 mg lozenge Dissolve 1 lozenge in the mouth every 2 (two) hours as needed (Coughing) 100 lozenge 1 Active benzonatate (TESSALON) 100 mg capsuleIndicatio ns:Cough Take 1 capsule (100 mg total) by mouth 3 (three) times a day as needed for cough 30 capsule 1 Active guaiFENesin-dext romethorphan ER (MUCINEX DM) 600-30 mg tablet extended release 12 hr Take 1 tablet by mouth 2 (two) times a day 28 tablet [address] (PROTONIX) 40 mg EC tabletIndication s:Stress Ulcer Prophylaxis Take 1 tablet (40 mg total) by mouth daily 30 tablet 1 Active metFORMIN (GLUCOPHAGE) 500 mg tablet Take 1 tablet (500 mg total) by mouth 2 (two) times a day with meals 60 tablet 1 Active oxygenIndication s:Dyspnea Administer 3-6 L/min into each nostril continuously. Indications: trouble breathing Active acetaminophen (Tylenol Extra Strength) 500 mg tabletIndication s:Headache Disorder Take 1,000 mg by mouth every 6 (six) hours as needed for headaches. 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 Overview (10/01/2016): Lipoprotein deficiency Hyperlipidemia 03/18/2011 Overview (10/01/2016): Hyperlipidemia LDL goal < 130 Hypoxia Physical deconditioning Immunizations Name Administration Dates Next Due Td, adsorbed 06/28/2006 Tdap 03/10/2016 Social History Tobacco Use Types Packs/Day Years Used Date Smoking Tobacco: Never Smokeless Tobacco: Never Alcohol Use Standard Drinks/Week Comments No 0 (1 standard drink = 0.6 oz pur e alcohol) Comments No Sex and Gender Information Value Date Recorded Sex Assigned at Not on file Legal Sex Female 12:51 PM HATCHERY MAN Gender Identity Not on file Sexual Orientation Not on file Last Filed Vital Signs Vital Sign Reading Time Taken Comments Blood Pressure 140/70 06/24/2021 12:19 PM HATCHERY MAN Pulse 94 06/24/2021 12:19 PM HATCHERY MAN Temperature 36.2 ??C (97.1 ??F) 06/24/2021 12:[address] Respiratory Rate 18 06/24/2021 12:19 PM HATCHERY MAN Oxygen Saturation 97% 06/24/2021 12:19 PM HATCHERY MAN Inhaled Oxygen Concentration - - Weight 131.5 kg (290 lb) 05/13/2021 1:56 PM HATCHERY MAN Height 172.7 cm (5' 8 ) 05/13/2021 1:56 PM HATCHERY MAN Body Mass Index 44.09 05/13/2021 1:56 PM HATCHERY MAN Plan of Treatment Not on file Insurance HE[employer]LINK OPEN ACCESS HEALTHLINK OPEN ACCESS HEALTHLINK OPEN ACCESS [address] [address] Advance Directives For more information, please contact: [phone] * Full Code (Latest Code Status on File) Date Activated Date Inactivated Comments 04/14/2021 9:55 AM 05/10/2021 12:06 AM Care Teams Solder Technician Relationship Specialty Start Date End Date Noris Bob MD [address] [place] [address] PCP - General 04/14/21 Miscellaneous, Not In File 05/09/21 [place] [address] [facility] [address] [place] [address] Consulting Physician Pulmonary Disease 05/09/21
--- OUTSIDE RECORDS SUMMARY | 2024-06-26 02:24 | XMS_ITS | Encounter Summary ---
Author Organization [facility] Address [address] [facility] [place] [address] Care Team Providers Care Bleaching Machine Operator Name Role Phone Noris Bob MD Primary Care Provider Encounter Details Date Type Department Care Team (Late st Contact Info) Description 06/17/2016 Orders Only [facility] Medical [facility] - Family Medicine [address] [place] [address] Noris Bob MD [address] [place] [phone] Social History Tobacco Use Types Packs/Day Years Used Date Smoking Tobacco: Never Alcohol Use Standard Drinks/Week Comments No 0 (1 standard drink = 0.6 oz pur e alcohol) Sex and Gender Information Value Date Recorded Sex Assigned at Not on file Gender Identity Not on file Sexual Orientation Not on file documented as of this encounter Progress Notes * Kristel Lainez - 06/18/2016 3:48 PM CST Letter sent. OARD MOTOR INSPECTOR * Noris Bob MD - 06/18/2016 12:30 PM CST Good news! Your hard work is really paying off. Your HA1C (a 3 month snapshot of your blood sugar) was normal and your fasting blood sugar looked good as well. Your cholesterol looks good. Your thyroid is in range on this dose of levothyroxine; let me know ifyou need a refill. If you continue with the changes you made then you can avoid diabetes! OARD MOTOR INSPECTOR documented in this encounter Plan of Treatment Not on file documented as of this encounter Goals Goal Patient Goal Type Associated Problems Recent Progress Patient-Stated? Author Have labs drawn Lifestyle No Kristel Lainez documented as of this encounter Procedures Procedure Name Priority Date/Time Associated Diagnosis Comments HEMOGLOBIN A1C W EAG 06/17/2016 1:51 PM OUTBOARD MOTOR INSPECTOR BASIC METABOLIC PANEL (CALCIUM TOTAL) 06/17/2016 1:51 PM OUTBOARD MOTOR INSPECTOR TSH 06/17/2016 1:51 PM OUTBOARD MOTOR INSPECTOR T4 FREE 06/17/2016 1:51 PM OUTBOARD MOTOR INSPECTOR LIPID PROFILE 06/17/2016 1:51 PM OUTBOARD MOTOR INSPECTOR documented in this encounter Results * HEMOGLOBIN A1C W EAG (PO REF LAB) (06/17/2016 1:51 PM OUTBOARD MOTOR INSPECTOR) Hemoglobin A1c 5.5 <5.7 % of total Hgb [facility] Comment: According to ADA guidelines, hemoglobin A1c <7.0% represents optimal control in non- diabetic patients. Different metrics may apply to specific patient populations. Standards of Medical Care in Diabetes-2013. Diabetes Care. 2013;36:s11-s66 For the purpose of screening for the presence of diabetes <5.7% ? Consistent with the absence of diabetes 5.7-6.4% ?Consistent with increased risk for diabetes ?(prediabetes) >or=6.5% ?Consistent with diabetes This assay result is consistent with a decreased risk of diabetes. Currently, no consensus exists for use of hemoglobin A1c for diagnosis of diabetes for children. Estimated Average Glucose 111 (calc) [facility] Estimated Average Glucose 6.2 (calc) [facility] Comment: REPORT COMMENT: FASTING:YES Test Performed at: [employer] [facility] [address] [place] ??[phone] PACO HIGHTOWER DO,MPH 06/17/2016 1:51 PM OUTBOARD MOTOR INSPECTOR 06/17/2016 1:52 PM OUTBOARD MOTOR INSPECTOR Noris Bob MD LAB - CHEMISTRY LIZANDRO FISHMAN Performing Organization Address [facility] Phone Number [facility] [address] [place] [address] * TSH (06/17/2016 1:51 PM OUTBOARD MOTOR INSPECTOR) TSH 2.67 mIU/L [facility] Comment: ?Reference Range ?> or = 20 Years ??0.40-4.50 ? Ranges ?First trimester ?0.26-2.66 ?Second trimester ?? 0.55-2.73 ?Third trimester ?0.43-2.91 Test Performed at: [employer] [place] [address] ??[phone] PACO HIGHTOWER DO,MPH 06/17/2016 1:51 PM OUTBOARD MOTOR INSPECTOR 06/17/2016 1:52 PM OUTBOARD MOTOR INSPECTOR Noris Bob MD LAB - CHEMISTRY LIZANDRO FISHMAN Performing Organization Address [facility] de Phone Number [facility] [address] [place] [address] * T4 FREE (06/17/2016 1:51 PM OUTBOARD MOTOR INSPECTOR) T4 Free 1.1 0.8 - 1.8 ng/dL [facility] Comment: Test Performed at: [employer] [facility] [employer] [address] [place] [address] ??[phone] PACO HIGHTOWER DO,MPH 06/17/2016 1:51 PM OUTBOARD MOTOR INSPECTOR 06/17/2016 1:52 PM OUTBOARD MOTOR INSPECTOR Noris Bob MD LAB - CHEMISTRY LIZANDRO FISHMAN Performing Organization Address [facility] Co de Phone Number [facility] [address] [place] [phone] * BASIC METABOLIC PANEL (CALCIUM TOTAL) (06/17/2016 1:51 PM OUTBOARD MOTOR INSPECTOR) Glucose 87 65 - 99 mg/dL [facility] Comment: ? Fasting reference interval BUN 11 7 - 25 mg/dL [facility] Creatinine 0.81 0.50 - 1.10 mg/dL [facility] eGFR by MDRD 90 > OR = 60 mL/min/1. 73m2 [facility] eGFR by MDRD 105 > OR = 60 mL/min/1. 73m2 [facility] BUN/Creatinine Ratio NOT APPLICABLE 6 - 22 (calc) [facility] Sodium 140 135 - 146 mmol/L [facility] Potassium 3.8 3.5 - 5.3 mmol/L [facility] Chloride 104 98 - 110 mmol/L [facility] CO2 29 20 - 31 mmol/L [facility] Calcium 9.5 8.6 - 10.2 mg/dL [facility] Comment: Test Performed at: [employer] [place], [place] ??[phone] PACO HIGHTOWER DO,MPH 06/17/2016 1:51 PM OUTBOARD MOTOR INSPECTOR 06/17/2016 1:52 PM OUTBOARD MOTOR INSPECTOR Noris Bob MD LAB - CHEMISTRY LIZANDRO FISHMAN Performing Organization Address [facility] Co de Phone Number [facility] [address] [place] [address] * (ABNORMAL) LIPID PROFILE (06/17/2016 1:51 PM OUTBOARD MOTOR INSPECTOR) Pathologist [facility] Cholesterol 195 125 - 200 mg/dL [facility] Comment: Test Performed at: [employer] [facility] [place] ??[phone] PACO HIGHTOWER DO,MPH HDL Cholesterol 44(L) > OR = 46 mg/dL [facility] Triglycerides 111 <150 mg/dL [facility] LDL Calculated 129 <130 mg/dL (calc) [facility] Comment: Desirable range <100 mg/dL for patients with CHD or diabetes and <70 mg/dL for diabetic patients with known heart disease. CHOL/HDLC RATIO 4.4 < OR = 5.0 (calc) [facility] Non HDL Cholesterol 151 mg/dL (calc) [facility] Comment: Target for non-HDL cholesterol is 30 mg/dL higher than LDL cholesterol target. 06/17/2016 1:51 PM OUTBOARD MOTOR INSPECTOR 06/17/2016 1:52 PM OUTBOARD MOTOR INSPECTOR Noris Bob MD LAB - CHEMISTRY LIZANDRO FISHMAN [facility] [address] [place] [address] documented in this encounter Visit Diagnoses Not on filedocumented in this encounter Care Teams Bleaching Machine Operator Relationship Specialty Start Date End Date Noris Bob MD [address] [place] [phone] PCP - General Family Medicine 04/23/16 10/25/22 documented as of this encounter
--- OUTSIDE RECORDS SUMMARY | 2024-06-26 02:24 | XMS_ITS | Encounter Summary ---
Author Organization [facility] Address [address] [place] [address] Care Team Providers Care Custom Frame Assembler Name Role Phone Noris Bob MD Primary Care Provider [phone] Reason for Visit * Reason Comments Follow-up Encounter Details Date Type Department Care Team (Late st Contact Info) Description 03/29/2018 9:00 AM CDT Office Visit [facility] - Family Medicine [address] [place] [address] Noris Bob MD [address] [place] [phone] Abnormal glucose (Primary Dx); Hypothyroidism, unspecified type Social History Tobacco Use [...] Sign Reading Time Taken Comments Blood Pressure 130/64 03/29/2018 8:50 AM CDT Pulse 61 03/29/2018 8:50 AM CDT Temperature - - Respiratory Rate - - Oxygen Saturation - - Inhaled Oxygen Concentration - - Weight 126.6 kg (279 lb) 03/29/2018 8:50 AM CDT Height 172.7 cm (5' 8 ) 03/29/2018 8:50 AM CDT Body Mass Index 42.42 03/29/2018 8:50 AM CDT documented in this encounter Patient Instructions * Patient Instructions* Noris Bob MD - 03/29/2018 9:41 AM CDT Please get your lab work done one week before your next appointment. documented in this encounter Progress Notes * Noris Bob MD - 03/29/2018 8:54 AM CDT SUBJECTIVE: Shaina Huynh is a 43 y.o. female who complains of Chief Complaint Patient presents with ??? Elevated blood sugar HPI: She started tracking her food and carbs again and has started to increase her activity. Brought herlog. Is taking levothyroxine daily. No fatigue, no stool changes. No CP. Patient Active Problem List Diagnosis ??? BMI 40.0-44.9, adult ??? Hypothyroidism ??? Abnormal glucose Past Medical History: Diagnosis Date ??? Gestational diabetes Family History Problem Relation Age of Onset ??? Diabetes Father ??? Heart Disease Father ??? Breast Cancer after age 50 or unknown Paternal Aunt ??? Breast Cancer after age 50 or unknown Maternal Aunt lung ca as well ??? Cancer - Breast Maternal Aunt ??? Cancer - Breast Other Social History Substance Use Topics ??? Smoking status: Never Smoker ??? Smokeless tobacco: Never Used ??? Alcohol use No No Known Allergies REVIEW OF SYSTEMS: GEN: +weight loss CV: Denies chest pain, GI: No nausea, vomiting, Denies abdominal pain . OBJECTIVE: BP 130/64 Pulse 61 Ht 1.727 m (5' 8 ) Wt 126.6 kg (279 lb) BMI 42.42 kg/m2 Body mass index is 42.42kg/(m^2). Wt Readings from Last 3 Encounters: 03/29/18 126.6 kg (279 lb) 02/15/18 128.5 kg (283 lb 6.4 oz) 11/10/17 126.4 kg (278 lb 9.6 oz) General appearance - alert, well appearing, and in no distress Mental Status -alert and oriented ASSESSMENT AND PLAN: ICD-10-CM 1. Abnormal glucose R73.09 She is doing better and following the lower carb diet. We reviewed her food log together and she is making nice progress. Will continue and f/u in 6 months; labs ordered for a week prior to her visit 2. Hypothyroidism, unspecified type E03.9 At goal Orders Placed This Encounter Procedures ??? COMPREHENSIVE METABOLIC PANEL ??? MICROALB/CREAT RATIO URINE RANDOM PANEL ??? HEMOGLOBIN A1C W EAG Declines flu shot today. There are no discontinued medications. Current Outpatient Prescriptions Medication Sig Dispense Refill ??? levothyroxine (SYNTHROID) 25 MCG tablet TAKE 1 TABLET BY MOUTH EVERY DAY 90 tablet 1 ??? Vit-Fe Thr-JA-Oofsm (GUM MIXER-PNV-DHA) 28-1-215.8 MG CAPS Take 1 capsule by mouth once daily30 capsule 3 No current facility-administered medications for this visit. Return in about 6 months (around 09/27/2018). documented in this encounter Plan of Treatment Scheduled Orders Name Type Priority Associated Diagnoses Orde r Schedule COMPREHENSIVE METABOLIC PANEL Lab Routine Abnormal glucose Ordered: 03/29/2018 MICROALB/CREAT RATIO URINE RANDOM PANEL Lab Routine Abnormal glucose Ordered: 03/29/2018 HEMOGLOBIN A1C W EAG Lab Routine Abnormal glucose Ordered: 03/29/2018 documented as of this encounter Goals Goal Patient Goal Type Associated Problems Recent Progress Patient-Stated? Author Have labs drawn Lifestyle No Kristel Lainez documented as of this encounter Visit Diagnoses Diagnosis Abnormal glucose- Primary Hypothyroidism, unspecified type documented in this encounter Care Teams Custom Frame Assembler Relationship Specialty Start Date End Date Noris Bob MD [address] [place] [address] PCP - General Family Medicine 04/23/16 10/25/22 documented as of this encounter
--- OUTSIDE RECORDS SUMMARY | 2024-06-26 02:24 | XMS_ITS | Encounter Summary ---
Author Organization [facility] Address [address] [place] [address] Care Team Providers Care Fuse Coiler Name Role Phone Noris Bob MD Primary Care Provider [phone] Reason for Visit * Reason Onset Date Comments Results 04/09/2021 Encounter Details Date Type Department Care Team (Late st Contact Info) Description 04/09/2021 Telephone [facility] [address] [place] [address], [address] [place] [address] Kathrin Williamson, RN Results Social History Tobacco Use Types Packs/Day Years [...] Encounter - Kathrin Williamson RN - 04/09/2021 9:09 AM CDT Called the patient with testing results Two patient identification used at this time. Informed patient that results for Covid-19 was POSITIVE. Reviewed CDC guidelines to return to work with patient Fever free 24 hours without medication, improvement in resp. symptoms and at least 10 days from onset of illness. Discussed also that any contacts need to monitor for symptoms for the next 14 days Encouraged rest, fluids, Tylenol for fevers and body aches, OTC cough medication Recommended with worsening symptoms to go to the ER for further care. Patient verbalized understanding and has no further questions at this time. documented in this encounter Plan of Treatment Not on file documented as of this encounter Goals Goal Patient Goal Type Associated Problems Recent Progress Patient-Stated? Author Have labs drawn Lifestyle No MigelKristel documented as of this encounter Visit Diagnoses Not on filedocumented in this encounter Additional Health Concerns Infection Onset Date Last Indicated Resolved Time COVID-19 Under Investigation 04/08/2021 04/08/2021 04/09/2021 5:50 AM CDT COVID-19 Confirmed 04/08/2021 04/08/2021 4:33 AM CDT documented as of this encounter Care Teams Fuse Coiler Relationship Specialty Start Date End Date Noris Bob MD [address] [place] [address] PCP - General Family Medicine 04/23/16 10/25/22 documented as of this encounter
--- OUTSIDE RECORDS SUMMARY | 2024-06-26 02:24 | XMS_ITS | Encounter Summary ---
Author Organization [facility] Address [address] [place] [address] Care Team Providers Care Taping Machine Operator Name Role Phone Noris Bob MD Primary Care Provider [phone] Reason for Visit * Reason Onset Date Comments MEDICATION REFILL 05/26/2021 Encounter Details Date Type Department Care Team (Late st Contact Info) Description 05/26/2021 Refill [facility] - Family Medicine [address] [place] [address] Noris Bob MD [address] [place] [address] MEDICATION REFILL Social History Tobacco Use [...] on filedocumented in this encounter Care Teams Taping Machine Operator Relationship Specialty Start Date End Date Noris Bob MD [facility] [place] [address] PCP - General Family Medicine 04/23/16 10/25/22 documented as of this encounter
--- OUTSIDE RECORDS SUMMARY | 2024-06-26 02:24 | XMS_ITS | Encounter Summary ---
Author Organization [facility] Address [address] [facility] [place] [address] Care Team Providers Care Heavy Mobile Equipment Operator Name Role Phone Noris Bob MD Primary Care Provider [phone] Reason for Visit * Reason Onset Date Comments Abnormal Mammogram 03/06/2021 Encounter Details Date Type Department Care Team (Late st Contact Info) Description 03/06/2021 Telephone [facility] Breast Care [address] [place] [address] Therese Sheikh Abnormal Mammogram Social History Tobacco Use Types Packs/Day Years [...] encounter Miscellaneous Notes * Telephone Encounter - Therese Sheikh - 03/06/2021 11:55 AM CDT msg left on vm Patient needs to sched RT Diag cherelle poss US documented in this encounter Plan of Treatment Not on file documented as of this encounter Goals Goal Patient Goal Type Associated Problems Recent Progress Patient-Stated? Author Have labs drawn Lifestyle No Kristel Lainez documented as of this encounter Visit Diagnoses Not on filedocumented in this encounter Care Teams Heavy Mobile Equipment Operator Relationship Specialty Start Date End Date Noris Bob MD [address] [place] [phone] PCP - General Family Medicine 04/23/16 10/25/22 documented as of this encounter
--- OUTSIDE RECORDS SUMMARY | 2024-06-26 02:24 | XMS_ITS | Encounter Summary ---
Author Organization [facility] Address [address] [place] [address] Care Team Providers Care Machine Inspector Name Role Phone Noris Bob MD Primary Care Provider [phone] Reason for Visit * Reason Onset Date Comments Home Health 05/16/2021 Encounter Details Date Type Department Care Team (Late st Contact Info) Description 05/16/2021 Telephone [facility] - Family Medicine [address] [place] [address] Noris Bob MD [address] [place] [phone] [facility] Social History Tobacco Use Types Packs/Day [...] - Marsha De Jesus LPN - 05/16/2021 11:56 AM ELECTRICAL APPLIANCE PREPARER Gave verbal to Delano regarding pt PT TRICAL APPLIANCE PREPARER * Telephone Encounter - Noris Bob MD - 05/16/2021 11:51 AM CST Yes TRICAL APPLIANCE PREPARER * Telephone Encounter - Julee Harris - 05/16/2021 10:23 AM CST Delano from [facility] calling requesting auth for PT 1-2 times a week for 3 weeks TRICAL APPLIANCE PREPARER documented in this encounter Plan of Treatment Not on file documented as of this encounter Goals Goal Patient Goal Type Associated Problems Recent Progress Patient-Stated? Author Have labs drawn Lifestyle No Kristel Lainez documented as of this encounter Visit Diagnoses Not on filedocumented in this encounter Care Teams Machine Inspector Relationship Specialty Start Date End Date Noris Bob MD [address] [place] [address] PCP - General Family Medicine 04/23/16 10/25/22 documented as of this encounter
--- OUTSIDE RECORDS SUMMARY | 2024-06-26 02:24 | XMS_ITS | Encounter Summary ---
Author Organization [facility] Address [address] [place] [address] Care Team Providers Care Life Coach Name Role Phone Noris Bob MD Primary Care Provider Encounter Details Date Type Department Care Team (Late st Contact Info) Description 07/29/2019 Orders Only [facility] Medical [facility] - Family Medicine [address] [place] [address] Noris Bob MD [address] [place] [address] Social History Tobacco Use Types [...] on filedocumented in this encounter Care Teams Life Coach Relationship Specialty Start Date End Date Noris Bob MD [address] [place] [address] PCP - General Family Medicine 04/23/16 10/25/22 documented as of this encounter
--- OUTSIDE RECORDS SUMMARY | 2024-06-26 02:24 | XMS_ITS | Encounter Summary ---
Author Organization [facility] Address [address] [facility] [place] [address] Care Team Providers Care Echocardiologist Name Role Phone Noris Bob MD Primary Care Provider [phone] Reason for Visit * Reason Comments Refill Request Encounter Details Date Type Department Care Team (Late st Contact Info) Description 08/07/2020 Refill [facility] Medical [facility] - Family Medicine [address] [place] [address] Noris Bob MD [address] [place] [address] Refill Request Social History Tobacco Use [...] Encounter - Marsha De Jesus LPN - 08/07/2020 7:43 AM SENIOR ARCHITECT/DESIGN MANAGER LRF : 07/09 RONEL : 07/28/19 Next OV : none OR ARCHITECT/DESIGN MANAGER documented in this encounter Plan of Treatment Not on file documented as of this encounter Goals Goal Patient Goal Type Associated Problems Recent Progress Patient-Stated? Author Have labs drawn Lifestyle No Kristel Lainez documented as of this encounter Visit Diagnoses Not on filedocumented in this encounter Care Teams Echocardiologist Relationship Specialty Start Date End Date Noris Bob MD [address] [place] [address] PCP - General Family Medicine 04/23/16 10/25/22 documented as of this encounter
--- OUTSIDE RECORDS SUMMARY | 2024-06-26 02:24 | XMS_ITS | Encounter Summary ---
Author Organization [facility] Address [address] [facility] [place] [address] Care Team Providers Care Bit Gatherer Name Role Phone Noris Bob MD Primary Care Provider [phone] Reason for Visit * Radiology Services (Routine) - Closed Specialty Diagnoses / Procedures Referred By Armando anna Referred To Contact Mammography Diagnoses Encounter for screening mammogram for breast cancer Procedures MAMMO BILAT SCREENING W ERMELINDANoris Ochoa MD [address] [place] [address] [facility] [address] [address] Referral ID Status Reason Start Date Expiration Date Visits Re quested Visits Authorized [id number] Closed 02/05/2021 02/05/2022 1 1 Encounter Details Date Type Department Care Team (Late st Contact Info) Description 03/01/2021 7:57 AM CDT - 03/01/2021 11:59 PM CDT Hospital Encounter [facility] Breast Care [address] [address] Noris Bob MD [address] [place] [address] Discharge Disposition: Home or Self Care Social [...] EVERY DAY 90 tablet 4 08/07/2020 11/03/2021 documented as of this encounter Plan of Treatment Not on file documented as of this encounter Goals Goal Patient Goal Type Associated Problems Recent Progress Patient-Stated? Author Have labs drawn Lifestyle No MigelKristel documented as of this encounter Procedures Procedure Name Priority Date/Time Associated Diagnosis Comments MAMMO BILAT SCREENING W ERMELINDA Routine 03/01/2021 8:36 AM CDT Encounter for screening mammogram for breast cancer documented in this encounter Results * MAMMO BILAT SCREENING W ERMELINDA (03/01/2021 [...] left breast. Noris Bob MD MAMMO ORDERABLES documented in this encounter Visit Diagnoses Diagnosis Encounter for screening mammogram for breast cancer documented in this encounter Care Teams Bit Gatherer Relationship Specialty Start Date End Date Noris Bob MD [address] [place] [address] PCP - General Family Medicine 04/23/16 10/25/22 documented as of this encounter
--- OUTSIDE RECORDS SUMMARY | 2024-06-26 02:24 | XMS_ITS | Encounter Summary ---
Author Organization [facility] Address [address] [facility] [place] [address] Care Team Providers Care Microfilm Machine Operator Name Role Phone Noris Bob MD Primary Care Provider [phone] Reason for Visit * Reason Onset Date Comments Patient Requested Call 05/13/2021 Encounter Details Date Type Department Care Team (Late st Contact Info) Description 05/13/2021 Telephone [facility] Medical [facility] - Family Medicine [address] [place] [address] Noris Bob MD [address] [place] [phone] Patient Requested Call Social History Tobacco Use Types Packs/Day [...] Telephone Encounter - Noris Bob MD - 05/13/2021 3:09 PM CST B.i.d. What machine does she have? ING PROJECT MANAGER * Telephone Encounter - Susan Wilhelm - 05/13/2021 2:08 PM CST Who is calling? Asa If other than self is caller listed on the HIPAA? no If caller is anyone other than listed above, where are they calling from? [phone] What is the reason for call? She is calling to get continued home care for the patient and disease and medication management. The patient was put on metformin and they need to know how may times the patient is to check her blood sugar per day and she will need a script for new strips the ones she has are old, she needs the lancets for her blood sugar. 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 Expected Response from the Clinic? Please call back with verbal. ING PROJECT MANAGER documented in this encounter Plan of Treatment Not on file documented as of this encounter Goals Goal Patient Goal Type Associated Problems Recent Progress Patient-Stated? Author Have labs drawn Lifestyle No Kristel Lainez documented as of this encounter Visit Diagnoses Not on filedocumented in this encounter Care Teams Microfilm Machine Operator Relationship Specialty Start Date End Date Noris Bob MD [address] [place] [address] PCP - General Family Medicine 04/23/16 10/25/22 documented as of this encounter
--- OUTSIDE RECORDS SUMMARY | 2024-06-26 02:24 | XMS_ITS | Encounter Summary ---
Author Organization [facility] [employer] Address [address] [place] [address] Care Team Providers Care Radio Talk Show Host Name Role Phone Noris Bob MD Primary Care Provider [phone] Reason for Visit * Reason Comments Allergic Rhinitis Encounter Details Date Type Department Care Team (Late st Contact Info) Description 03/04/2021 8:10 AM CDT Video Visit [facility] [address] [place] [address] Kristie Walker APRN-CNP [address] [place] [address] Seasonal allergic rhinitis, unspecified trigger Social History Tobacco Use Types Packs/Day Years [...] this encounter Patient Instructions * Patient Instructions* Kristie Walker APRN-CNP - 03/04/2021 9:19 AM CDT Patient Education Allergic Rhinitis TINWARE LITHOGRAPH PRESS OPERATOR: Allergic rhinitis , or hay fever, is swelling of the inside of your nose. The swelling is a reaction to allergens in the air. An allergen can be anything that causes an allergic reaction. Allergies to weeds, grass, trees, or mold often cause seasonal allergic rhinitis. Indoor dust mites, cockroaches, pet dander, or mold can also cause allergic rhinitis. Common signs and symptoms include the following: ?? Sneezing ?? Nasal congestion ?? Runny nose ?? Itchy nose, eyes, or mouth ?? Red, watery eyes ?? Postnasal drip (nasal drainage down the back of your throat) ?? Cough or frequent throat clearing ?? Feeling tired or lethargic ?? Dark circles under your eyes Call 911 for the following: ?? You have chest pain or shortness of breath. Seek care immediately if: ?? You have severe pain. ?? You cough up blood. Contact your healthcare provider if: ?? You have a fever. ?? You have ear or sinus pain, or a headache. ?? Your symptoms get worse, even after treatment. ?? You have yellow, green, brown, or bloody mucus coming from your nose. ?? Your nose is bleeding or you have pain inside your nose. ?? You have trouble sleeping because of your symptoms. ?? You have questions or concerns about your condition or care. Treatment: ?? Antihistamines help reduce itching, sneezing, and a runny nose. Some antihistamines can make yousleepy. ?? Nasal steroids help decrease inflammation in your nose. ?? Decongestants help clear your stuffy nose. ?? Immunotherapy may be needed if your symptoms are severe or other treatments do not work. Immunotherapy is used to inject an allergen into your skin. At first, the therapy contains tiny amounts of the allergen. Your healthcare provider will slowly increase the amount of allergen. This may help your body be less sensitive to the allergen and stop reacting to it. You may need immunotherapy for weeks or longer. Manage allergic rhinitis: The best way to manage allergic rhinitis is to avoid allergens that can trigger your symptoms. Any of the following may help decrease your symptoms: ?? Rinse your nose and sinuses with a salt water solution or use a salt water nasal spray. This will help thin the mucus in your nose and rinse away pollen and dirt. It will also help reduce swellingso you can breathe normally. Ask your healthcare provider how often to rinse your nose. ?? Reduce exposure to dust mites. Wash sheets and towels in hot water every week. Cover your pillows and mattresses with allergen-free covers. Limit the number of stuffed animals and soft toys your child has. Wash your child's toys in hot water regularly. Vacuum weekly and use a vacuum glass cleaner withan air filter. If possible, get rid of carpets and curtains. These collect dust and dust mites. ?? Reduce exposure to pollen. Keep windows and doors closed in your house and car. Stay inside whenair pollution or the pollen count is high. Run your air conditioner on recycle, and change air filters often. Shower and wash your hair before bed every night to rinse away pollen. ?? Reduce exposure to pet dander. If possible, do not keep cats, dogs, birds, or other pets. If youdo keep pets in your home, keep them out of bedrooms and carpeted rooms. Bathe them often. ?? Reduce exposure to mold. Do not spend time in basements. Choose artificial plants instead of live plants. Keep your home's humidity at less than 45%. Do not have ponds or standing water in your home or yard. ?? Do not smoke. Avoid others who smoke. Ask your healthcare provider for information if you currently smoke and need help to quit. Follow up with your healthcare provider as directed: Write down your questions so you remember to ask them during your visits. ?? Copyright [employer] 2020 Information is for End User's use only and may not be sold, redistributed or otherwise used for commercial purposes. All illustrations and images included in CareNotes?? are the copyrighted property of [employer] Simple[employer] Fast [employer] Elegant [employer]t [employer] App, Portr. or Hydrelis The above information is an computer lab aide only. It is not intended as medical advice for individual conditions or treatments. Talk to your doctor, nurse or pharmacist before following any medical regimen to see if it is safe and effective for you. documented in this encounter Progress Notes * Kristie Walker APRN-CNP - 03/04/2021 9:19 AM CDT Subjective: Shaina Huynh is a 46 year old female who presents today for Chief Complaint Patient presents with ??? Allergic Rhinitis . Her Primary Care Physician is Noris Bob MD. She reports nasal congestion, dry cough, wateryeyes, rhinits-clear, sinus pressure that has improved with Flonase, and ears popping. She has seasonal allergies and has been taking her nasal spray and pills.. Onset of symptoms was 3 days ago, and is Somewhat improved since that time. She is drinking plenty of fluids.. She needs a note for work to return today.She has not been Covid vaccinated. Patient denies any fevers, chills, sweats, N/V/D abd, CP, SOB, difficulty breathing, cough, ST, earpain, ringing in the ears, GARCÍA, dizziness, vision changes rashes, generalized weakness or numbness/tingling. Past Medical History: Diagnosis Date ??? Gestational diabetes ssme Family History Problem Relation Name Age of [...] BY MOUTH EVERY DAY 90 tablet 4 No current facility-administered medications for this visit. No Known Allergies Social History Socioeconomic History ??? Marital status: [...] on file Social History Narrative Works at [employer] Social Determinants of Health Financial Resource [...] Gatherings with Friends and Family: ??? Attends Rastafarian Services: ??? Active Member of Clubs or Organizations: ??? Attends Club or Organization Meetings: ??? Marital Status: Intimate Partner Violence: ??? Fear of Current or Ex-Partner: ??? Emotionally Abused: ??? Physically Abused: ??? Sexually Abused: Review of Systems Pertinent items are noted in HPI Objective: There were no vitals taken for this visit. Exam General appearance: alert, cooperative, no distress, oriented to person, place, and time, wellappearing Nose: sounds congested Eyes: sclera clear, PERRLA Lungs: no cough, SOB, wheezing or difficulty breathing, can speak in full sentences without difficulty Skin: no rashes or other abnormalities are noted Neurologic: mental status normal No results found for this or any previous visit (from the past 24 hour(s)). Assessment: Encounter Diagnosis Name Primary? Seasonal allergic rhinitis, unspecified trigger Yes Plan: Continue regular allergy medication. Note for return to work today. Order placed for PCP if none on file and patient wishes for PCP. Increase rest and fluids. Can sleep propped up to help with congestion and/or coughing Follow up prn or symptoms worsen or do not improve. Avoid outside while allergens are high in the air Sinus rinses or netti pot may help No orders of the defined types were placed in this encounter. documented in this encounter Plan of Treatment Not on file documented as of this encounter Goals Goal Patient Goal Type Associated Problems Recent Progress Patient-Stated? Author Have labs drawn Lifestyle No Kristel Lainez documented as of this encounter Visit Diagnoses Diagnosis Seasonal allergic rhinitis, unspecified trigger- Primary documented in this encounter Care Teams Radio Talk Show Host Relationship Specialty Start Date End Date Noris Bob MD [address] [place] [address] PCP - General Family Medicine 04/23/16 10/25/22 documented as of this encounter
--- OUTSIDE RECORDS SUMMARY | 2024-06-26 02:24 | XMS_ITS | Encounter Summary ---
Author Organization [facility] Address [address] [place] [address] Care Team Providers Care Surgical Garment Inspector Name Role Phone Noris Bob MD Primary Care Provider [phone] Reason for Visit * Reason Comments Establish Care Encounter Details Date Type Department Care Team (Late st Contact Info) Description 05/13/2016 3:30 PM DIGITAL CAMPAIGN SPECIALIST Office Visit [facility] - Family Medicine [address] [place] [id number] Noris Bob MD [address] [place] [id number] Abnormal glucose (Primary Dx); Hypothyroidism, unspecified type; Screening for breast cancer; Need for vaccination; Screening for lipoid disorders Social History Tobacco Use Types Packs/Day [...] Sign Reading Time Taken Comments Blood Pressure 122/59 05/13/2016 3:27 PM DIGITAL CAMPAIGN SPECIALIST Pulse 67 05/13/2016 3:27 PM DIGITAL CAMPAIGN SPECIALIST Temperature - - Respiratory Rate - - Oxygen Saturation - - Inhaled Oxygen Concentration - - Weight 122 kg (269 lb) 05/13/2016 3:27 PM DIGITAL CAMPAIGN SPECIALIST Height 172.7 cm (5' 8 ) 05/13/2016 3:27 PM DIGITAL CAMPAIGN SPECIALIST Body Mass Index 40.9 05/13/2016 3:27 PM DIGITAL CAMPAIGN SPECIALIST documented in this encounter Patient Instructions * Patient Instructions* Noris Bob MD - 05/13/2016 3:58 PM DIGITAL CAMPAIGN SPECIALIST GOOD LUCK WITH DIET AND EXERCISE. YOU HAVE DONE A FANTASTIC JOB ALREADY! TAL CAMPAIGN SPECIALIST documented in this encounter Progress Notes * Kristel Lainez - 05/13/2016 4:05 PM CST Pt received influenza vaccine without complication. TAL CAMPAIGN SPECIALIST * Noris Bob MD - 05/13/2016 3:23 PM CST SUBJECTIVE: Shaina Huynh is a 41 y.o. female is here today for : Chief Complaint Patient presents with ??? Establish Care HPI: She needs a doctor since she had abnormal TSH/thyroid level AND GDM. Is 2 months post . She really changed her diet and lost 50 lbs since December after diagnosis of GDM. She walks sometimes. Bloodsugars were <130 for the most part. After her delivery she had mildly abnl TSH and elevated 2 hour glucose tolerance test. She denies urinary frequency/poluria/polydypsia. Current Outpatient Prescriptions Medication ??? levothyroxine (SYNTHROID) 25 MCG tablet ??? Vit-Fe Eaw-DF-Isyui (SENIOR STAFF CONSULTANT-PNV-DHA PO) No current facility-administered medications for this visit. There is no problem list on file for this patient. Allergies: Review of patient's allergies indicates no known allergies. Past Medical History Diagnosis Date ??? Gestational diabetes Past Surgical History Procedure Laterality Date ??? section 2016 Family History Problem Relation Age of Onset ??? Diabetes Father ??? Heart Disease Father ??? Breast Cancer after age 50 or unknown Paternal Aunt ??? Breast Cancer after age 50 or unknown Maternal Aunt lung ca as well History Social History ??? Marital status: Spouse name: N/A ??? Number of children: N/A ??? Years of education: N/A Social History Main Topics ??? Smoking status: Never Smoker ??? Smokeless tobacco: Not on file ??? Alcohol use: No ??? Drug use: No ??? Sexual activity: Not on file Social History Narrative Works at [employer] Review of Systems: Constitutional: No fatigue, fevers, chills or weight change Psych: No post depression Cardiovascular: No chest pain, palpitations Respiratory: No shortness of breath, cough, wheezing Gastrointestinal: No nausea, vomiting, abdominal pain, change in bowel habits, black or bloody stools Genito-Urinary ROS: Patient's last menstrual period was 05/06/2016 (approximate). Neurological: No headaches, dizziness, confusion, numbness, tingling OBJECTIVE: BP 122/59 Pulse 67 Wt 122 kg (269 lb) BMI 40.9 kg/m2 Height: 172.7 cm (5' 8 ) BP Readings from Last 3 Encounters: 05/13/16 122/59 Wt Readings from Last 3 Encounters: 05/13/16 122 kg (269 lb) GENERAL: well groomed, healthy appearing PSYCH: patient alert & oriented, mood: normal, and in no acute distress. EYE: conjunctiva normal B/L, pupils equal B/L ENT: EACs andTMs normal B/L. Post-pharynx unremarkable. No lymphadenopathy. NECK: supple with FROM. No thyroid enlargement. CARDIOVASCULAR: RRR without murmurs. (-) pitting edema. No carotid bruits heard. RESPIRATORY: Respirations unlabored. CTAB. Good air exchange B/L. ABDOMEN: Soft, BS+ and normal, Non tender, not distended, no hepatomegaly and no splenomegaly MUSCULOSKELETAL: gait normal. no clubbing/cyanosis. SKIN: warm and dry, no rashes in visible areas. No results found for this visit on 05/13/16. ASSESSMENT AND PLAN: ICD-10-CM 1. Abnormal glucose R73.09 HEMOGLOBIN A1C W EAG (PO REF LAB) BASIC METABOLIC PANEL (CALCIUM TOTAL) She did a nice job with this while and is still losing weight. Will see where she is she will continue to work on TLC. 2. Hypothyroidism, unspecified type E03.9 TSH T4 FREE Due for repeat. 3. Screening for breast cancer Z12.39 MAMMO SCREENING DIGITAL IMAGE BILAT 4. Need for vaccination Z23 FLU VACC IIV4 PRSV FREE ID 5. Screening for lipoid disorders Z13.220 LIPID PROFILE Orders Placed This Encounter ??? MAMMO SCREENING DIGITAL IMAGE BILAT ??? FLU VACC IIV4 PRSV FREE ID ??? TSH ??? T4 FREE ??? HEMOGLOBIN A1C W EAG (PO REF LAB) ??? BASIC METABOLIC PANEL (CALCIUM TOTAL) ??? LIPID PROFILE Followup: Return in about 4 months (around 09/10/2016). Patient Instructions GOOD LUCK WITH DIET AND EXERCISE. YOU HAVE DONE A FANTASTIC JOB ALREADY! TAL CAMPAIGN SPECIALIST documented in this encounter Plan of Treatment Scheduled Orders Name Type Priority Associated Diagnoses Orde r Schedule TSH Lab Routine Hypothyroidism, unspecified type Ordered: 05/13/2016 T4 FREE Lab Routine Hypothyroidism, unspecified type Ordered: 05/13/2016 HEMOGLOBIN A1C W EAG (PO REF LAB) Lab Routine Abnormal glucose Ordered: 05/13/2016 BASIC METABOLIC PANEL (CALCIUM TOTAL) Lab Routine Abnormal glucose Ordered: 05/13/2016 LIPID PROFILE Lab Routine Screening for lipoid disorders Ordered: 05/13/2016 documented as of this encounter Goals Goal Patient Goal Type Associated Problems Recent Progress Patient-Stated? Author Have labs drawn Lifestyle No Migel Kristel Sheridan documented as of this encounter Visit Diagnoses Diagnosis Abnormal glucose- Primary Hypothyroidism, unspecified type Screening for lipoid disorders Need for vaccination Need for prophylactic vaccination and inoculation against unspecified single disease documented in this encounter Care Teams Surgical Garment Inspector Relationship Specialty Start Date End Date Noris Bob MD [address] [place] [address] PCP - General Family Medicine 04/23/16 10/25/22 documented as of this encounter
--- OUTSIDE RECORDS SUMMARY | 2024-06-26 02:24 | XMS_ITS | Clinical Summary ---
Author Organization [facility] Address [address] [place] [address] Phone Care Team Providers Care Research Consultant Name Role Phone Noris Bob MD Primary Care Provide r Miscellaneous, Not In File Unavailable Unava ilable Johnny Salgado MD Unavailable [phone] Allergies No known active allergies Medications levothyroxine [...] into each nostril continuously. Indications: trouble breathing 1 Active acetaminophen (Tylenol Extra Strength) 500 mg [...] Next Due Td, adsorbed 06/28/2006 Tdap 03/10/2016 Surgical History Surgery Date Site/Laterality Comments SECTION Medical History Medical History Date Comments Thyroid disease Family History Medical History Relation Name Comments Other Brother 2 Alive and well; Diabetes type II Father Diabetes me llitus type 2; Cause of : Diabetes mellitus type 2 Hypertension Father Hypertension; C ause of : Hypertension Other Maternal Grandfather Unknown ; Cause of : Unknown Other Mother Alive and well; Other Paternal Grandfather Unknown ; Cause of : Unknown Other Paternal Grandmother Unknown ; Cause of : Unknown Other Sister 2 Alive and well; Relation Name Status Comments Brother 1 Alive Brother 2 Father (Age 69) Maternal Grandfather Mother Alive Paternal Grandfather Paternal Grandmother Sister 1 Alive Sister 2 Social History Tobacco Use Types Packs/Day Years Used Date Smoking Tobacco: Never Smokeless Tobacco: Never Alcohol Use Standard Drinks/Week Comments No 0 (1 standard drink = 0.6 oz pur e alcohol) Comments No Sex and Gender Information Value Date Recorded Sex Assigned at Not on file Legal Sex Female 12:51 PM POST ADOPTION COORDINATOR Gender Identity Not on file Sexual Orientation Not on file Obstetrics History Last Filed Vital Signs Vital Sign Reading Time Taken Comments Blood Pressure 140/70 06/24/2021 12:19 PM POST ADOPTION COORDINATOR Pulse 94 06/24/2021 12:19 PM POST ADOPTION COORDINATOR Temperature 36.2 ??C (97.1 ??F) 06/24/2021 12:[address] Respiratory Rate 18 06/24/2021 12:19 PM POST ADOPTION COORDINATOR Oxygen Saturation 97% 06/24/2021 12:19 PM POST ADOPTION COORDINATOR Inhaled Oxygen Concentration - - Weight 131.5 kg (290 lb) 05/13/2021 1:56 PM POST ADOPTION COORDINATOR Height 172.7 cm (5' 8 ) 05/13/2021 1:56 PM POST ADOPTION COORDINATOR Body Mass Index 44.09 05/13/2021 1:56 PM POST ADOPTION COORDINATOR Plan of Treatment Health Maintenance Due Date Last Done Comments Breast Cancer Screening-Mammogram 1975 Cervical Cancer Screening 1975 Colon Cancer Screening-Colonoscopy 1975 Depression Screening 1975 Hepatitis C Screening 1975 Hepatitis B Screening 1993 Regular Well Visit/Exam 18-64 1993 Influenza Vaccine (#1) 2024 6, 08/30/2015 DTaP/Tdap/Td Vaccine (3 - Td or Tdap) 03/10/2026 03/10/2016, 02/27/2016, 06/28/2006 Pneumococcal vaccine <65 Aged Out No longer eligible based on patient's age to complete this topic Insurance [employer] OPEN ACCESS [employer] OPEN ACCESS HE[employer]LINK OPEN ACCESS Advance Directives For more information, please contact: [phone] * Full Code (Latest Code Status on File) Date Activated Date Inactivated Comments 04/14/2021 9:55 AM 05/10/2021 12:06 AM Care Teams Research Consultant Relationship Specialty Start Date End Date Noris Bob MD [address] [place] [address] PCP - General 04/14/21 Miscellaneous, Not In File 05/09/21 [place] [address] [facility] [address] [place] [address] Consulting Physician Pulmonary Disease 05/09/21
--- OUTSIDE RECORDS SUMMARY | 2024-06-26 02:24 | XMS_ITS | Encounter Summary ---
Author Organization [facility] Address [address] [place] [address] Care Team Providers Care Erosion Control Specialist Name Role Phone Noris Bob MD Primary Care Provider [phone] Reason for Visit * Reason Onset Date Comments MEDICATION REFILL 02/03/2017 Encounter Details Date Type Department Care Team (Late st Contact Info) Description 02/03/2017 Refill [facility] - Family Medicine [address] [place] [address] Noris Bob MD [address] [place] [address] MEDICATION REFILL Social History Tobacco [...] on filedocumented in this encounter Care Teams Erosion Control Specialist Relationship Specialty Start Date End Date Noris Bob MD [address] [place] [address] PCP - General Family Medicine 04/23/16 10/25/22 documented as of this encounter
--- OUTSIDE RECORDS SUMMARY | 2024-06-26 02:24 | XMS_ITS | Encounter Summary ---
Author Organization [facility] Address [address] [place] [address] Care Team Providers Care Software Qa System Specialist Name Role Phone Noris Bob MD Primary Care Provider [phone] Reason for Visit * Reason Comments Follow-up 3 month Encounter Details Date Type Department Care Team (Late st Contact Info) Description 06/29/2017 8:45 AM ED MANAGER Office Visit [facility] - Family Medicine [address] [place] [address] Noris Bob MD [address] [place] [phone] Abnormal glucose (Primary Dx); Hypothyroidism, unspecified type; BMI 40.0-44.9, adult (HCC); Screening for lipoid disorders Social History Tobacco [...] Sign Reading Time Taken Comments Blood Pressure 115/50 06/29/2017 8:35 AM ED MANAGER Pulse 58 06/29/2017 8:35 AM ED MANAGER Temperature - - Respiratory Rate - - Oxygen Saturation - - Inhaled Oxygen Concentration - - Weight 124.3 kg (274 lb) 06/29/2017 8:35 AM ED MANAGER Height 172.7 cm (5' 8 ) 06/29/2017 8:35 AM ED MANAGER Body Mass Index 41.66 06/29/2017 8:35 AM ED MANAGER documented in this encounter Patient Instructions * Patient Instructions* Noris Bob MD - 06/29/2017 9:02 AM ED MANAGER You can do it! MANAGER documented in this encounter Progress Notes * Noris Bob MD - 06/29/2017 7:11 PM CST Your thyroid is off a bit (lab normal has changed so hard to compare to past) if you have not missed doses let me know and we will increase to 50 mcg daily from the 25 mcg you are taking. Your HA1C has crept up some but is still normal. Your cholesterol is at goal for your age and risk factors. And the chloride/calcuim are fine even though they are highlighted. MANAGER * Noris Bob MD - 06/29/2017 8:54 AM CST SUBJECTIVE: Shaina Huynh is a 42 y.o. female who complains of Chief Complaint Patient presents with ??? Follow-up Thyroid and blood sugar Here for f/u of her blood sugar and thyroid. Still working hard on her diet; over holidays got a bit off track. Not walking daily in this cold. No fatigue, no stool changes. No CP. [...] unknown Maternal Aunt lung ca as well Social History Substance Use Topics ??? Smoking status: Never Smoker ??? Smokeless tobacco: Never Used ??? Alcohol use No No Known Allergies REVIEW OF SYSTEMS: GEN: +weight gain CV: Denies chest pain, GI: No nausea, vomiting, Denies abdominal pain . OBJECTIVE: BP 115/50 Pulse 58 Ht 1.727 m (5' 8 ) Wt 124.3 kg (274 lb) BMI 41.66 kg/m2 Body mass index is 41.66kg/(m^2). Wt Readings from Last 3 Encounters: 06/29/17 124.3 kg (274 lb) 12/23/16 121.8 kg (268 lb 9.6 oz) 09/29/16 125.2 kg (276 lb) General appearance - alert, well appearing, and in no distress Mental Status -alert and oriented ENT - normal canals, normal TM B, normal orophayrgeal mucosa Neck - supple, no significant adenopathy, no thyromegaly Lungs - clear to auscultation, no wheezes, rales or rhonchi, symmetric air entry Heart - normal rate, regular rhythm, normal S1, S2, no murmurs, rubs, clicks or gallops Extremities - peripheral pulses normal, no pedal edema Skin - The visualized skin no for new lesions, rash, sores, hair loss ASSESSMENT AND PLAN: ICD-10-CM 1. Abnormal glucose R73.09 COMPREHENSIVE METABOLIC PANEL HEMOGLOBIN A1C W EAG LIPID PROFILE She is going to get back on therapeutic lifestyle changes now that holidays are over. 2. Hypothyroidism, unspecified type E03.9 TSH 3. BMI 40.0-44.9, adult Z68.41 LIPID PROFILE 4. Screening for lipoid disorders Z13.220 LIPID PROFILE Orders Placed This Encounter ??? COMPREHENSIVE METABOLIC PANEL ??? HEMOGLOBIN A1C W EAG ??? TSH ??? LIPID PROFILE Patient Instructions You can do it! There are no discontinued medications. Current Outpatient Prescriptions Medication Sig Dispense Refill ??? levothyroxine (SYNTHROID) 25 MCG tablet Take 1 Tab by mouth once daily 90 Tab 3 ??? Vit-Fe Kxb-WT-Tutvo (EXECUTIVE SALES ASSISTANT-PNV-DHA) 28-1-215.8 MG CAPS Take 1 Cap by mouth once daily 90 Cap 3 No current facility-administered medications for this visit. Return in about 4 months (around 10/27/2017). MANAGER documented in this encounter Plan of Treatment Not on file documented as of this encounter Goals Goal Patient Goal Type Associated Problems Recent Progress Patient-Stated? Author Have labs drawn Lifestyle No Kristel Lainez documented as of this encounter Procedures Procedure Name Priority Date/Time Associated Diagnosis Comments HEMOGLOBIN A1C W EAG Routine 06/29/2017 9:13 AM ED MANAGER Abnormal glucose COMPREHENSIVE METABOLIC PANEL Routine 06/29/2017 9:13 AM ED MANAGER Abnormal glucose TSH Routine 06/29/2017 9:13 AM ED MANAGER Hypothyroidism, unspecified type LIPID PROFILE Routine 06/29/2017 9:13 AM ED MANAGER Abnormal glucose BMI 40.0-44.9, adult (HCC) Screening for lipoid disorders documented in this encounter Results * LIPID PROFILE (06/29/2017 9:13 AM ED MANAGER) Cholesterol 173 <200 mg/dL [facility] ACCOUNT BILL Triglycerides 70 <150 mg/dL [facility] ACCOUNT BILL HDL Cholesterol 49 >40 mg/dL [facility] ACCOUNT BILL VLDL Calculated 14 <=30 mg/dL [facility] ACCOUNT BILL LDL Calculated 110 <130 mg/dL [facility] ACCOUNT BILL Comment: Not calculated FASTING Blood BLOOD SPECIMEN / Unknown 06/29/2017 9:13 AM ED MANAGER 06/29/2017 Narrative Resulting Agency Comment [facility] [address] [address] ??[place] [phone] Noris Bob MD LAB - CHEMISTRY LIZANDRO FISHMAN [facility] ACCOUNT BILL [address] [place] [address] * (ABNORMAL) TSH (06/29/2017 9:13 AM ED MANAGER) TSH 4.22(H) 0.358 - 3.740 uIU/mL [facility] ACCOUNT BILL Comment:FASTING Blood BLOOD SPECIMEN / Unknown 06/29/2017 9:13 AM ED MANAGER 06/29/2017 Narrative Resulting Agency Comment [facility] [address] [address] ??[place] [phone] Noris Bob MD LAB - CHEMISTRY LIZANDRO FISHMAN [facility] ACCOUNT BILL [address] [place] [address] * HEMOGLOBIN A1C W EAG (06/29/2017 9:13 AM ED MANAGER) Pathologist [facility] Hemoglobin A1c 5.6 4.2 - 6.3 % [facility] ACCOUNT BILL Estimated Average Glucose 114 mg/dL [facility] ACCOUNT BILL Comment:FASTING Blood BLOOD SPECIMEN / Unknown 06/29/2017 9:13 AM ED MANAGER 06/29/2017 Narrative Resulting Agency Comment [place] [address] [address] ??[facility] [phone] Noris Bob MD LAB - CHEMISTRY LIZANDRO FISHMAN Performing Organization Address City/[facility]/ZIP Co de Phone Number [facility] ACCOUNT BILL [address] [place] [address] * (ABNORMAL) COMPREHENSIVE METABOLIC PANEL (06/29/2017 9:13 AM ED MANAGER) Pathologist [facility] Glucose 101 74 - 106 mg/dL [facility] ACCOUNT BILL BUN 15 7 - 21 mg/dL [facility] ACCOUNT BILL Creatinine 0.76 0.50 - 1.30 mg/dL [facility] ACCOUNT BILL Sodium 142 136 - 145 mmol/L [facility] ACCOUNT BILL Potassium 4.2 3.5 - 5.1 mmol/L [facility] ACCOUNT BILL Chloride 109(H) 98 - 107 mmol/L [facility] ACCOUNT BILL CO2 24 22 - 31 mmol/L [facility] ACCOUNT BILL Calcium 8.4(L) 8.5 - 10.1 mg/dL [facility] ACCOUNT BILL Protein Total 7.2 6.4 - 8.2 gm/dL [facility] ACCOUNT BILL Albumin 3.7 3.4 - 5.0 gm/dL [facility] ACCOUNT BILL Bilirubin Total 0.4 0.2 - 1.0 mg/dL [facility] ACCOUNT BILL Alkaline Phosphatase 91 38 - 126 U/L [facility] ACCOUNT BILL AST 7 5 - 40 U/L [facility] ACCOUNT BILL ALT 15 13 - 61 U/L [facility] ACCOUNT BILL Comment:FASTING eGFR by MDRD >60 >60 mL/min/1.7 3m2 [facility] ACCOUNT BILL eGFR by MDRD >60 >60 mL/min/1.7 3m2 [facility] ACCOUNT BILL Blood BLOOD SPECIMEN / Unknown 06/29/2017 9:13 AM ED MANAGER 06/29/2017 Narrative Resulting Agency Comment [facility] [address] [address] ??[facility] [phone] Noris Bob MD LAB - CHEMISTRY LIZANDRO FISHMAN [facility] Organization Address City/State/ZIP Co de Phone Number [facility] ACCOUNT BILL [address] [place] [address] documented in this encounter Visit Diagnoses Diagnosis Abnormal glucose- Primary Hypothyroidism, unspecified type BMI 40.0-44.9, adult (HCC) Body Mass Index 40.0-44.9, adult Screening for lipoid disorders documented in this encounter Care Teams Software Qa System Specialist Relationship Specialty Start Date End Date Noris Bob MD [address] [place] [address] PCP - General Family Medicine 04/23/16 10/25/22 documented as of this encounter
--- OUTSIDE RECORDS SUMMARY | 2024-06-26 02:24 | XMS_ITS | Encounter Summary ---
Author Organization [facility] Address [address] [place] [address] Care Team Providers Care Plumbing Hardware Assembler Name Role Phone Noris Bob MD Primary Care Provider [phone] Encounter Details Date Type Department Care Team (Late st Contact Info) Description 11/23/2018 9:30 AM CDT Office Visit [facility] Medical [facility] - Family Medicine [address] [place] [address] Noris Bob MD [address] [place] [phone] Abnormal glucose (Primary Dx); BMI 40.0-44.9, adult (HCC); Hypothyroidism, unspecified type Social History Tobacco Use [...] Sign Reading Time Taken Comments Blood Pressure 117/65 11/23/2018 9:27 AM CDT Pulse 72 11/23/2018 9:27 AM CDT Temperature - - Respiratory Rate - - Oxygen Saturation - - Inhaled Oxygen Concentration - - Weight 126.7 kg (279 lb 6.4 oz) 11/23/2018 9:27 AM CDT Height 172.7 cm (5' 8 ) 11/23/2018 9:27 AM CDT Body Mass Index 42.48 11/23/2018 9:27 AM CDT documented in this encounter Progress Notes * Noris Bob MD - 11/23/2018 9:29 AM CDT SUBJECTIVE: Shaina Huynh is a 43 year old female who complains of Chief Complaint Patient presents with ??? Elevated blood sugar HPI: She has been tracking her food; has trouble with her dinners as home cooked. Walking. Goal is after lunch. But is off track some with the weather. No numbness or paresthesias. Brought her log. Is taking levothyroxine daily. No fatigue, no stool changes. No CP. Wonders about menopause as often sweaty and had two periods that were a bit late. Patient Active Problem List: BMI 40.0-44.9, adult Hypothyroidism Abnormal glucose Past Medical History: Diagnosis Date [...] No Known Allergies REVIEW OF SYSTEMS: GEN: No weight change CV: Denies chest pain, GI: No nausea, vomiting, Denies abdominal pain . OBJECTIVE: BP 117/65 Pulse 72 Ht 1.727 m (5' 8 ) Wt 126.7 kg (279 lb 6.4 oz) BMI 42.48 kg/m2 Body mass index is 42.48 kg/(m^2). Wt Readings from Last 3 Encounters: 11/23/18 126.7 kg (279 lb 6.4 oz) 03/29/18 126.6 kg (279 lb) 02/15/18 128.5 kg (283 lb 6.4 oz) General appearance - alert, well appearing, and in no distress Mental Status -alert and oriented ASSESSMENT AND PLAN: ICD-10-CM 1. Abnormal glucose R73.09 HEMOGLOBIN A1C W EAG LIPID PROFILE COMPREHENSIVE METABOLIC PANEL\ Following low carb diet. Will get blood work and hopefully this will have improved. 2. BMI 40.0-44.9, adult Z68.41 Holding weight steady 3. Hypothyroidism, unspecified type E03.9 TSH Orders Placed This Encounter Procedures ??? HEMOGLOBIN A1C W EAG ??? TSH ??? LIPID PROFILE ??? COMPREHENSIVE METABOLIC PANEL There are no discontinued medications. Current Outpatient Prescriptions Medication Sig Dispense Refill ??? levothyroxine (SYNTHROID) 25 MCG tablet TAKE 1 TABLET BY MOUTH EVERY DAY 90 tablet 1 ??? Vit-Fe Ebo-NW-Kttaf (WET PROCESS TECHNICIAN-PNV-DHA) 28-1-215.8 MG CAPS Take 1 capsule by mouth once daily30 capsule 3 No current facility-administered medications for this visit. Return in about 6 months (around 05/26/2019). documented in this encounter Plan of Treatment Not on file documented as of this encounter Goals Goal Patient Goal Type Associated Problems Recent Progress Patient-Stated? Author Have labs drawn Lifestyle No Kristel Lainez documented as of this encounter Procedures Procedure Name Priority Date/Time Associated Diagnosis Comments HEMOGLOBIN A1C W EAG Routine 11/23/2018 10:06 AM CDT Abnormal glucose COMPREHENSIVE METABOLIC PANEL Routine 11/23/2018 10:06 AM CDT Abnormal glucose TSH Routine 11/23/2018 10:06 AM CDT Hypothyroidism, unspecified type LIPID PROFILE Routine 11/23/2018 10:06 AM CDT Abnormal glucose documented in this encounter Results * (ABNORMAL) COMPREHENSIVE METABOLIC PANEL (11/23/2018 10:06 AM CDT) Glucose 109(H) 74 - 106 mg/dL [facility] ACCOUNT BILL BUN 14 7 - 18.7 mg/dL [facility] ACCOUNT BILL Creatinine 0.79 0.55 - 1.02 mg/dL [facility] ACCOUNT BILL eGFR by MDRD >60 >60 mL/min/1.7 3m2 [facility] ACCOUNT BILL eGFR by MDRD >60 >60 mL/min/1.7 3m2 [facility] ACCOUNT BILL Comment:Attention clinician: BUN Reference Range has changed. Sodium 138 136 - 145 mmol/L [facility] ACCOUNT BILL Potassium 4.1 3.5 - 5.1 mmol/L [facility] ACCOUNT BILL Chloride 105 98 - 107 mmol/L [facility] ACCOUNT BILL CO2 23 23 - 31 mmol/L [facility] ACCOUNT BILL Calcium 9.2 8.4 - 10.2 mg/dL [facility] ACCOUNT BILL Protein Total 7.1 6.4 - 8.3 gm/dL [facility] ACCOUNT BILL Albumin 4.3 3.5 - 5.2 gm/dL [facility] ACCOUNT BILL Bilirubin Total 0.5 0.2 - 1.0 mg/dL [facility] ACCOUNT BILL Alkaline Phosphatase 96 40 - 150 U/L [facility] ACCOUNT BILL AST 12 5 - 34 U/L [facility] ACCOUNT BILL ALT 12(L) 13 - 61 U/L [facility] ACCOUNT BILL Comment:FASTING Blood BLOOD SPECIMEN / Unknown 11/23/2018 10:06 AM CDT 11/23/2018 Narrative Resulting Agency Comment Lab Testing performed at: [address] ?? [place] [phone] Noris Bob MD LAB - CHEMISTRY LIZANDRO FISHMAN [facility] ACCOUNT BILL [address] [place] [address] * (ABNORMAL) LIPID PROFILE (11/23/2018 10:06 AM CDT) Cholesterol 175 <200 mg/dL [facility] ACCOUNT BILL Triglycerides 70 <150 mg/dL [facility] ACCOUNT BILL HDL Cholesterol 45 >40 mg/dL [facility] ACCOUNT BILL VLDL Calculated 14(L) >=30 mg/dL [facility] ACCOUNT BILL Comment:Not calculated LDL Calculated 116 <130 mg/dL [facility] ACCOUNT BILL Comment: Not calculated FASTING Blood BLOOD SPECIMEN / Unknown 11/23/2018 10:06 AM CDT 11/23/2018 Narrative Resulting Agency Comment Lab Testing performed at: [place] [address] [address] ?? [place] [phone] Noris Bob MD LAB - CHEMISTRY LIZANDRO FISHMAN [facility] ACCOUNT BILL [address] [place] [address] * (ABNORMAL) TSH (11/23/2018 10:06 AM CDT) TSH 3.8824(H) 0.358 - 3.74 uIU/mL [facility] ACCOUNT BILL Comment:FASTING Blood BLOOD SPECIMEN / Unknown 11/23/2018 10:06 AM CDT 11/23/2018 Narrative Resulting Agency Comment Lab Testing performed at: [place] [address] ?? [place] [phone] Noris Bob MD LAB - CHEMISTRY LIZANDRO FISHMAN Performing Organization Address [facility] Co de Phone Number [facility] ACCOUNT BILL [address] [place] [address] * HEMOGLOBIN A1C W EAG (11/23/2018 10:06 AM CDT) Pathologist [facility] Hemoglobin A1c 5.6 4.0 - 6.1 % [facility] ACCOUNT BILL Estimated Average Glucose 114 mg/dL [facility] ACCOUNT BILL Comment: Attention clinician: ??Reference Range has changed. FASTING Blood BLOOD SPECIMEN / Unknown 11/23/2018 10:06 AM CDT 11/23/2018 Narrative Resulting Agency Comment Lab Testing performed at: [facility] [address] ?? [place] [phone] Noris Bob MD LAB - CHEMISTRY LIZANDRO FISHMAN [facility] ACCOUNT BILL [address] [place] [address] documented in this encounter Visit Diagnoses Diagnosis Abnormal glucose- Primary BMI 40.0-44.9, adult (HCC) Body Mass Index 40.0-44.9, adult Hypothyroidism, unspecified type documented in this encounter Care Teams Plumbing Hardware Assembler Relationship Specialty Start Date End Date Noris Bob MD [address] [place] [id number] PCP - General Family Medicine 04/23/16 10/25/22 documented as of this encounter
--- OUTSIDE RECORDS SUMMARY | 2024-06-26 02:24 | XMS_ITS | Encounter Summary ---
Author Organization [facility] Address [address] [place] [address] Care Team Providers Care Pay Per Click Strategist Name Role Phone Noris Bob MD Primary Care Provider [phone] Reason for Visit * Reason Comments Thyroid Problem Encounter Details Date Type Department Care Team (Late st Contact Info) Description 02/15/2018 9:30 AM CDT Office Visit [facility] Medical [facility] - Family Medicine [address] [place] [address] Noris Bob MD [address] [place] [phone] Abnormal glucose (Primary Dx); Hypothyroidism, unspecified type; BMI 40.0-44.9, adult (HCC) [...] Sign Reading Time Taken Comments Blood Pressure 113/67 02/15/2018 9:34 AM CDT Pulse 68 02/15/2018 9:34 AM CDT Temperature - - Respiratory Rate - - Oxygen Saturation - - Inhaled Oxygen Concentration - - Weight 128.5 kg (283 lb 6.4 oz) 02/15/2018 9:34 AM CDT Height 172.7 cm (5' 8 ) 02/15/2018 9:34 AM CDT Body Mass Index 43.09 02/15/2018 9:34 AM CDT documented in this encounter Patient Instructions * Patient Instructions* Noris Bob MD - 02/15/2018 9:50 AM CDT Please start logging your carbs and all of your foods and bring your logs to the office! documented in this encounter Progress Notes * Noris Bob MD - 02/15/2018 9:46 AM CDT SUBJECTIVE: Shaina Huynh is a 43 y.o. female who complains of Chief Complaint Patient presents with ??? Thyroid Problem HPI: She has not started to formally work on her diet again. Not exercising. Weight is creeping up still. Is taking levothyroxine daily. No fatigue, no [...] vomiting, Denies abdominal pain . OBJECTIVE: BP 113/67 Pulse 68 Ht 1.727 m (5' 8 ) Wt 128.5 kg (283 lb 6.4 oz) BMI 43.09 kg/m2 Body mass index is 43.09 kg/(m^2). Wt Readings from Last 3 Encounters: 02/15/18 128.5 kg (283 lb 6.4 oz) 11/10/17 126.4 kg (278 lb 9.6 oz) 06/29/17 124.3 kg (274 lb) General appearance - alert, well appearing, [...] ICD-10-CM 1. Abnormal glucose R73.09 She is still off track and risks reacquiring DM. Labs ordered today. Discussed options. She has gotten away from writing down food/carbs but will do that and f/u in 6 weekshere with her log. 2. Hypothyroidism, unspecified type E03.9 At goal Orders Placed This Encounter Procedures ??? HEMOGLOBIN A1C W EAG ??? COMPREHENSIVE METABOLIC PANEL ??? MICROALB/CREAT RATIO URINE RANDOM PANEL Medications Discontinued During This Encounter Medication Reason ??? Vit-Fe Hnp-SM-Ruozt (HIGH SCHOOL SOCIAL STUDIES TUTOR-PNV-DHA) 28-1-215.8 MG CAPS Reorder Current Outpatient Prescriptions Medication Sig Dispense Refill ??? Vit-Fe Ejh-YB-Rjzfg (HIGH SCHOOL SOCIAL STUDIES TUTOR-PNV-DHA) 28-1-215.8 MG CAPS Take 1 capsule by mouth once daily30 capsule 3 ??? levothyroxine (SYNTHROID) 25 MCG tablet Take 1 Tab by mouth once daily 90 Tab 3 No current facility-administered medications for this visit. Return in about 6 weeks (around 03/29/2018). documented in this encounter Plan of Treatment Not on file documented as of this encounter Goals Goal Patient Goal Type Associated Problems Recent Progress Patient-Stated? Author Have labs drawn Lifestyle No Kristel Lainez documented as of this encounter Procedures Procedure Name Priority Date/Time Associated Diagnosis Comments HEMOGLOBIN A1C W EAG Routine 02/15/2018 9:59 AM CDT Abnormal glucose MICROALB/CREAT RATIO URINE RANDOM PANEL Routine 02/15/2018 9:59 AM CDT Abnormal glucose COMPREHENSIVE METABOLIC PANEL Routine 02/15/2018 9:59 AM CDT Abnormal glucose documented in this encounter Results * MICROALB/CREAT RATIO URINE RANDOM PANEL (02/15/2018 9:59 AM CDT) Creatinine Urine 71 mg/dL [facility] ACCOUNT BILL Microalbumin Urine <0.5 mg/dL [facility] ACCOUNT BILL Microalbumin/Crea tinine Ratio <7 <30 mg/g [facility] ACCOUNT BILL Urine URINE SPECIMEN OBTAINED BY CLEAN CATCH PROCEDURE / Unknown 02/15/2018 9:59 AM CDT 02/15/2018 Narrative Resulting Agency Comment [facility] [address] [address] ??[facility] [phone] Noris Bob MD LAB - URINE CHEMISTR Y ORDERABLES [facility] ACCOUNT BILL [address] [place] [address] * COMPREHENSIVE METABOLIC PANEL (02/15/2018 9:59 AM CDT) Glucose 100 74 - 106 mg/dL [facility] ACCOUNT BILL BUN 12 7 - 21 mg/dL [facility] ACCOUNT BILL Creatinine 0.81 0.50 - 1.30 mg/dL [facility] ACCOUNT BILL eGFR by MDRD >60 >60 mL/min/1.7 3m2 [facility] ACCOUNT BILL eGFR by MDRD >60 >60 mL/min/1.7 3m2 [facility] ACCOUNT BILL Sodium 136 136 - 145 mmol/L [facility] ACCOUNT BILL Potassium 4.2 3.5 - 5.1 mmol/L [facility] ACCOUNT BILL Chloride 103 98 - 107 mmol/L [facility] ACCOUNT BILL CO2 26 22 - 31 mmol/L [facility] ACCOUNT BILL Calcium 9.0 8.5 - 10.1 mg/dL [facility] ACCOUNT BILL Protein Total 7.0 6.4 - 8.2 gm/dL [facility] ACCOUNT BILL Albumin 3.6 3.4 - 5.0 gm/dL [facility] ACCOUNT BILL Bilirubin Total 0.5 0.2 - 1.0 mg/dL [facility] ACCOUNT BILL Alkaline Phosphatase 94 38 - 126 U/L [facility] ACCOUNT BILL AST 8 5 - 40 U/L [facility] ACCOUNT BILL ALT 13 13 - 61 U/L [facility] ACCOUNT BILL Blood BLOOD SPECIMEN / Unknown 02/15/2018 9:59 AM CDT 02/15/2018 Narrative Resulting Agency Comment [place] [address] ??[place] [phone] Noris Bob MD LAB - CHEMISTRY LIZANDRO FISHMAN [facility] ACCOUNT BILL [address] [place] [address] * HEMOGLOBIN A1C W EAG (02/15/2018 9:59 AM CDT) Hemoglobin A1c 5.7 4.2 - 6.3 % [facility] ACCOUNT BILL Estimated Average Glucose 117 mg/dL [facility] ACCOUNT BILL Blood BLOOD SPECIMEN / Unknown 02/15/2018 9:59 AM CDT 02/15/2018 Narrative Resulting Agency Comment [place] [address] ??[facility] [phone] Noris Bob MD LAB - CHEMISTRY LIZANDRO FISHMAN Performing Organization Address City/[facility]/ZIP Co de Phone Number [facility] ACCOUNT BILL [address] [place] [address] documented in this encounter Visit Diagnoses Diagnosis Abnormal glucose- Primary Hypothyroidism, unspecified type BMI 40.0-44.9, adult (HCC) Body Mass Index 40.0-44.9, adult documented in this encounter Care Teams Pay Per Click Strategist Relationship Specialty Start Date End Date Noris Bob MD [address] [place] [address] PCP - General Family Medicine 04/23/16 10/25/22 documented as of this encounter
--- OUTSIDE RECORDS SUMMARY | 2024-06-26 02:24 | XMS_ITS | Encounter Summary ---
Author Organization [facility] Address [address] [place] [address] Care Team Providers Care Coverstitch Elastic Attacher Name Role Phone Noris Bob MD Primary Care Provider [phone] Reason for Visit * Reason Onset Date Comments MEDICATION REFILL 05/28/2021 Encounter Details Date Type Department Care Team (Late st Contact Info) Description 05/28/2021 Refill [facility] - Family Medicine [address] [place] [address] Noris Bob MD [address] [place] [address] MEDICATION REFILL Social History Tobacco [...] on filedocumented in this encounter Care Teams Coverstitch Elastic Attacher Relationship Specialty Start Date End Date Noris Bob MD [facility] [place] [address] PCP - General Family Medicine 04/23/16 10/25/22 documented as of this encounter
--- OUTSIDE RECORDS SUMMARY | 2024-06-26 02:24 | XMS_ITS | Encounter Summary ---
Author Organization [facility] Home Care Servic es Address [address] [place] [address] Phone Care Team Providers Care Service Advocate Contact Name Role Phone Noris Bob MD Primary Care Provide r Miscellaneous, Not In File Unavailable Unava ilable Johnny Salgado MD Unavailable [phone] Reason for Visit * Auth/Cert Specialty Diagnoses / Procedures Referred By Contac t Referred To Contact Referral ID Status Reason Start Date Expiration Date Visits Re quested Visits Authorized [id number] 1 7 Encounter Details Date Type Department Care Team (Late st Contact Info) Description 06/24/2021 Home Care Visit [facility] [address] [place] [address] Anjali Bella, PT TRAVEL SCREENING CASE COMMUNICATION Social History Tobacco Use Types Packs/Day Years Used Date Smoking Tobacco: Never Smokeless Tobacco: Never Alcohol Use Standard Drinks/Week Comments No 0 (1 standard drink = 0.6 oz pur e alcohol) Comments No Sex and Gender Information Value Date Recorded Sex Assigned at Not on file Legal Sex Female 12:51 PM MANAGER CLIENT Gender Identity Not on file Sexual Orientation Not on file documented as of this encounter Plan of Treatment Not on file documented as of this encounter Visit Diagnoses Not on filedocumented in this encounter Care Teams Service Advocate Contact Relationship Specialty Start Date End Date Noris Bob MD [address] [place] [address] PCP - General 04/14/21 Miscellaneous, Not In File 05/09/21 [place] [address] [address] [facility] [address] [place] [address] Consulting Physician Pulmonary Disease 05/09/21 documented as of this encounter
--- OUTSIDE RECORDS SUMMARY | 2024-06-26 02:24 | XMS_ITS | Encounter Summary ---
Author Organization [facility] Address [address] [facility] [facility] [address] [place] [address] Care Team Providers Care Manager Security And Safety Name Role Phone Noris Bob MD Primary Care Provider [phone] Reason for Visit * Radiology Services (Routine) - Closed Specialty Diagnoses / Procedures Referred By Armando t Referred To Contact Ultrasound Diagnoses Abnormal mammogram of right breast Procedures US BREAST RIGHT LTD US BREAST RIGHT COMPLETE(whole breast including axilla and retroareolar area) Noris Bob MD [address] [place] [address] [facility] [address] [address] Referral ID Status Reason Start Date Expiration Date Visits Re quested Visits Authorized [id number] Closed 03/04/2021 03/04/2022 1 1 Encounter Details Date Type Department Care Team (Late st Contact Info) Description 03/27/2021 2:50 PM CDT - 03/27/2021 11:59 PM CDT Hospital Encounter [facility] Health Imaging Services - Ultrasound [address] [address] Noris Bob MD [address] [place] [address] Discharge Disposition: Home or Self [...] Procedure Name Priority Date/Time Associated Diagnosis Comments US BREAST RIGHT LTD Routine 03/27/2021 3 :36 PM CDT Abnormal mammogram of right breast documented in this encounter Results * US BREAST RIGHT LTD (03/27/2021 3:36 [...] in the care of your patient. [facility] utilizes [employer] as a reminder system to notify patients [...] lower outer right breast performed by the metal sorter. There is no suspicious solid or cystic mass. No definite correlate identified for the mammographic mass. Noris Bob MD US ORDERABLES documented in this encounter Visit Diagnoses Diagnosis Abnormal mammogram of right breast documented in this encounter Care Teams Manager Security And Safety Relationship Specialty Start Date End Date Noris Bob MD [address] [place] [address] PCP - General Family Medicine 04/23/16 10/25/22 documented as of this encounter
--- OUTSIDE RECORDS SUMMARY | 2024-06-26 02:24 | XMS_ITS | Encounter Summary ---
Author Organization [facility] Address [address] [place] [address] Care Team Providers Care Coat Examiner Name Role Phone Noris Bob MD Primary Care Provider [phone] Reason for Visit * Reason Onset Date Comments Home Health 05/09/2021 Encounter Details Date Type Department Care Team (Late st Contact Info) Description 05/09/[address] [facility] - Family Medicine [address] [place] [address] Noris Bob MD [address] [place] [address] [facility] Social History Tobacco Use Types Packs/Day [...] encounter Miscellaneous Notes * Telephone Encounter - Kristel Lainez - 05/09/2021 11:50 AM CST LMOR for Carole that Dr. Bob will follow. 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 Author Have labs drawn Lifestyle No Kristel Lainez documented as of this encounter Visit Diagnoses Not on filedocumented in this encounter Care Teams Coat Examiner Relationship Specialty Start Date End Date Noris Bob MD [address] [place] [address] PCP - General Family Medicine 04/23/16 10/25/22 documented as of this encounter
--- OUTSIDE RECORDS SUMMARY | 2024-06-26 02:24 | XMS_ITS | Encounter Summary ---
Author Organization [facility] Address [address] [place] [address] Care Team Providers Care Gm Video Name Role Phone Noris Bob MD Primary Care Provider [phone] Reason for Referral * Radiology Services (Routine) - Closed Specialty Diagnoses / Procedures Referred By Armando anna Referred To Contact Diagnoses Visit for screening mammogram Procedures MAMMO SCREENING DIGITAL IMAGE BILAT G0202 [place] [address] [place], [place] [address] Referral ID Status Reason Start Date Expiration Date Visits Re quested Visits Authorized [id number] Closed 11/25/2017 05/24/2018 1 1 Reason for Visit * Radiology Services (Routine) - Closed Specialty Diagnoses / Procedures Referred By Armando anna Referred To Contact Diagnoses Visit for screening mammogram Procedures MAMMO SCREENING DIGITAL IMAGE BILAT G0202 Ragini Navas MD [address] [place], [place] [address] Referral ID Status Reason Start Date Expiration Date Visits Re quested Visits Authorized [id number] Closed 11/25/2017 05/24/2018 1 1 Encounter Details Date Type Department Care Team (Latest Contact Info) Description 11/25/2017 3:30 PM CDT - 11/25/2017 11:59 PM CDT Hospital Encounter [facility] Breast Care [address] [place] [address] Ragini Navas MD [address] [place] [address] Discharge Disposition: Home or Self Care Social [...] Sig Dispensed Refills Start Date End Date levothyroxine (SYNTHROID) 25 MCG tablet Take 1 Tab by mouth once daily 90 Tab 3 02/04/2017 03/12/2018 Vit-Fe Rqv-YH-Heedx (AIDS NURSE-PNV-DHA) 28-1-215.8 MG CAPS Take 1 Cap by mouth once daily 90 Cap 3 12/23/2016 02/15/2018 documented as of this encounter Plan of Treatment Not on file documented as of this encounter Goals Goal Patient Goal Type Associated Problems Recent Progress Patient-Stated? Author Have labs drawn Lifestyle No Kristel Lainez documented as of this encounter Procedures Procedure Name Priority Date/Time Associated Diagnosis Comments MAMMO BILAT SCREENING Routine 11/25/2017 3:50 PM CDT Visit for screening mammogram documented in this encounter Results * MAMMO SCREENING DIGITAL IMAGE BILAT G0202 (11/25/2017 3:50 PM CDT) Anatomical Region Laterality Modality Breast Bilateral Mammography 11/25/2017 4:08 PM CDT Impressions 11/25/2017 4:10 PM CDT No mammographic evidence of malignancy in either breast. ASSESSMENT: BIRADS Category 1: Negative mammogram. RECOMMENDATION: Bilateral screening mammogram in one year. Thank you for allowing us to participate in the care of your patient. [facility] utilizes [employer] as a reminder system to notify patients [...] prior examination. Ragini Navas MD MAMMO ORDERABLES documented in this encounter Visit Diagnoses Diagnosis Visit for screening mammogram Other screening mammogram documented in this encounter Care Teams Gm Video Relationship Specialty Start Date End Date Noris Bob MD [address] [place] [address] PCP - General Family Medicine 04/23/16 10/25/22 documented as of this encounter
--- OUTSIDE RECORDS SUMMARY | 2024-06-26 02:24 | XMS_ITS | Encounter Summary ---
Author Organization [facility] Address [address] [facility] [place] [address] Care Team Providers Care Grain Receiver Name Role Phone Noris Bob MD Primary Care Provider [phone] Reason for Visit * Reason Comments Sinus Problem Shoulder Pain left Encounter Details Date Type Department Care Team (Late st Contact Info) Description 07/28/2019 2:00 PM BEAN SNIPPER Office Visit [facility] - Family Medicine [address] [place] [address] Noris Bob MD [address] [place] [phone] Viral upper respiratory tract infection (Primary Dx); Hypothyroidism, unspecified type; BMI 40.0-44.9, adult (HCC); Abnormal glucose; Trapezius muscle spasm Social History Tobacco Use Types Packs/Day Years [...] Sign Reading Time Taken Comments Blood Pressure 130/59 07/28/2019 1:58 PM BEAN SNIPPER Pulse 69 07/28/2019 1:58 PM BEAN SNIPPER Temperature - - Respiratory Rate - - Oxygen Saturation - - Inhaled Oxygen Concentration - - Weight 128.8 kg (284 lb) 07/28/2019 1:58 PM BEAN SNIPPER Height 172.7 cm (5' 8 ) 07/28/2019 1:58 PM BEAN SNIPPER Body Mass Index 43.18 07/28/2019 1:58 PM BEAN SNIPPER documented in this encounter Progress Notes * Noris Bob MD - 07/28/2019 1:57 PM CST SUBJECTIVE: Shaina Huynh is a 44 year old female who complains of Chief Complaint Patient presents with ??? Sinus Problem ??? Shoulder Pain left HPI: She is here for several concerns. Has not been tracking her food and has not been as active. Is taking levothyroxine daily. No fatigue, no stool changes. Did not get repeat TSH after medication adjustment yet. Has had few days of ear pain on L and popping sensation, some facial pain and congestion. No f/c. In addition, her L shoulder has been painful on and off. Really more her trapezius. No problems with ROM of neck or shoulder, no weakness or numbness in her extreme ties. Patient Active Problem List: BMI 40.0-44.9, adult Hypothyroidism Abnormal glucose Past Medical History: Diagnosis Date ??? Gestational diabetes Family History Problem Relation Name Age of Onset ??? Diabetes Father ??? Heart Disease Father ??? Breast Cancer after age 50 or unknown Paternal Aunt ??? Breast Cancer after age 50 or unknown Maternal Aunt lung ca as well ??? Cancer - Breast Maternal Aunt ??? Cancer - Breast Other Mat Aunt Social History Tobacco Use ??? Smoking status: Never Smoker ??? Smokeless tobacco: Never Used Substance Use Topics ??? Alcohol use: No ??? Drug use: No No Known Allergies REVIEW OF SYSTEMS: GEN: No weight change CV: Denies chest pain, GI: No nausea, vomiting, Denies abdominal pain . OBJECTIVE: BP 130/59 Pulse 69 Ht 1.727 m (5' 8 ) Wt 128.8 kg (284 lb) BMI 43.18 kg/m2 Body mass index is 43.18kg/m??. Wt Readings from Last 3 Encounters: 07/28/19 128.8 kg (284 lb) 11/23/18 126.7 kg (279 lb 6.4 oz) 03/29/18 126.6 kg (279 lb) General appearance - alert, well appearing, and in no distress ENT - normal canals, normal TM B, normal orophayrgeal mucosa, normal nasal mucosa with clear rhinorrhea Neck - supple, no significant adenopathy, no thyromegaly tender trigger point in her trapezius Lungs - clear to auscultation, no wheezes, rales or rhonchi, symmetric air entry Heart - normal rate, regular rhythm, normal S1, S2, no murmurs, rubs, clicks or gallops Shoulder: Skin warm, no discoloration/ bruising. No atrophy noted. No bony tenderness. +FROM, No crepitus.Normal Muscle strength. (-) empty can test. (-) Neers and Perez. (-) Apley ASSESSMENT AND PLAN: ICD-10-CM 1. Viral upper respiratory tract infection J06.9 No sign of sinusitis. OTC symptomatic treatment. 2. Hypothyroidism, unspecified type E03.9 TSH Due for repeat. 3. BMI 40.0-44.9, adult Z68.41 She is going to try to start 2 days of walking. 4. Abnormal glucose R73.09 HEMOGLOBIN A1C W EAG 5. Trapezius muscle spasm M62.838 Normal shoulder and neck exam otherwise, she will let me know if she wants to go to PT Orders Placed This Encounter Procedures ??? TSH ??? HEMOGLOBIN A1C W EAG There are no discontinued medications. Current Outpatient Medications Medication Sig Dispense Refill ??? levothyroxine (SYNTHROID) 50 MCG tablet Take 1 tablet by mouth once daily 90 tablet 4 ??? Vit-Fe Cpz-GF-Hqvmm (ORCHARDIST-PNV-DHA) 28-1-215.8 MG CAPS Take 1 capsule by mouth once daily30 capsule 3 No current facility-administered medications for this visit. Return in about 3 months (around 10/26/2019). SNIPPER documented in this encounter Plan of Treatment Not on file documented as of this encounter Goals Goal Patient Goal Type Associated Problems Recent Progress Patient-Stated? Author Have labs drawn Lifestyle No Kristel Lainez documented as of this encounter Procedures Procedure Name Priority Date/Time Associated Diagnosis Comments HEMOGLOBIN A1C W EAG Routine 07/28/2019 2:21 PM BEAN SNIPPER Abnormal glucose TSH Routine 07/28/2019 2:21 PM BEAN SNIPPER Hypothyroidism, unspecified type documented in this encounter Results * (ABNORMAL) HEMOGLOBIN A1C W EAG (07/28/2019 2:21 PM BEAN SNIPPER) Hemoglobin A1c 5.7(H) 4.2 - 5.6 % [facility] ACCOUNT BILL Estimated Average Glucose 117 mg/dL [facility] ACCOUNT BILL Comment: The following cutoff levels are recommended by [employer]. A1c ??> 6.5% : [...] the specimen. Blood BLOOD SPECIMEN / Unknown 07/28/2019 2:21 PM BEAN SNIPPER 07/28/2019 Narrative Resulting Agency Comment Lab Testing performed at: [place] [address] [address]én[address] ?? Anna KABA [id number] Noris Bob MD LAB - CHEMISTRY LIZANDRO FISHMAN Performing Organization Address City/[facility]/ZIP Co de Phone Number [facility] ACCOUNT BILL [address] [place] [address] * TSH (07/28/2019 2:21 PM BEAN SNIPPER) TSH 3.5745 0.35 - 4.94 uIU/mL [facility] ACCOUNT BILL Blood BLOOD SPECIMEN / Unknown 07/28/2019 2:21 PM BEAN SNIPPER 07/28/2019 Narrative Resulting Agency Comment Lab Testing performed at: [facility] [address] [address] Méndez ?? Anna KABA [id number] Noris Bob MD LAB - CHEMISTRY LIZANDRO FISHMAN [facility] ACCOUNT BILL [address] [place] [address] documented in this encounter Visit Diagnoses Diagnosis Viral upper respiratory tract infection- Primary Acute upper respiratory infections of unspecified site Hypothyroidism, unspecified type BMI 40.0-44.9, adult (HCC) Body Mass Index 40.0-44.9, adult Abnormal glucose Trapezius muscle spasm Spasm of muscle documented in this encounter Care Teams Grain Receiver Relationship Specialty Start Date End Date Noris Bob MD [address] [place] [address] PCP - General Family Medicine 04/23/16 10/25/22 documented as of this encounter
--- OUTSIDE RECORDS SUMMARY | 2024-06-26 02:24 | XMS_ITS | Encounter Summary ---
Author Organization [facility] Address [address] [facility] [place] [address] Care Team Providers Care Locomotive Firer/Fireman Name Role Phone Noris Bob MD Primary Care Provider [phone] Reason for Visit * Reason Comments Hospital Follow-up discharged 05/09/21 Encounter Details Date Type Department Care Team (Late st Contact Info) Description 05/30/2021 11:15 AM ZIPPER TRIMMER HAND Office Visit [facility] - Family Medicine [address] [place] [address] Noris Bob MD [address] [place] [phone] Hospital discharge follow-up (Primary Dx); Pneumonia due to COVID-19 virus; On home O2; Anemia, unspecified type; Hypothyroidism, unspecified type; Prediabetes Social History Tobacco Use Types Packs/Day Years [...] Sign Reading Time Taken Comments Blood Pressure 131/87 05/30/2021 11:19 AM ZIPPER TRIMMER HAND Pulse 104 05/30/2021 11:19 AM ZIPPER TRIMMER HAND Temperature - - Respiratory Rate - - Oxygen Saturation - - Inhaled Oxygen Concentration - - Weight 118.4 kg (261 lb) 05/30/2021 11:19 AM ZIPPER TRIMMER HAND Height 171.5 cm (5' 7.5 ) 05/30/2021 11:19 AM CS T Body Mass Index 40.28 05/30/2021 11:19 AM ZIPPER TRIMMER HAND documented in this encounter Progress Notes * Noris Bob MD - 05/30/2021 11:22 AM CST SUBJECTIVE: Shaina Huynh is a 46 year old female who complains of Chief Complaint Patient presents with ??? Hospital Follow-up discharged 05/09/21 HPI: COVID at [facility] 04/14/21 to 05/09/21 She has had a rough time of it but has really started to improve. Her O2 at d/c was 6 L to 1-2 L now. had at same time and is now fine. Is using her Spirometer. Very sleepy. [facility]: NURSE 1-2 TIMES A WEEK. PT. Does note getting stronger. No falls. If does too much O2 drops to 82% HR 125 No palpitations. No LE edema Blood sugars have been up 170 Patient Active Problem List: Hypothyroidism Seasonal allergies Prediabetes Allergies: Patient has no known allergies. PMHx, FHX, Surgical Hx reviewed. Social History Occupational History ??? Not on file Tobacco Use ??? Smoking status: Never Smoker ??? Smokeless tobacco: Never Used Substance and Sexual Activity ??? Alcohol use: No ??? Drug use: No ??? Sexual activity: Not on file Social History Social History Narrative Works at [employer] OBJECTIVE: BP 131/87 Pulse 104 Ht 1.715 m (5' 7.5 ) Wt 118.4 kg (261 lb) BMI 40.28 kg/m2 Height: 171.5 cm (5' 7.5 ) BP Readings from Last 3 Encounters: 05/30/21 131/87 04/08/21 128/77 02/14/21 136/82 Wt Readings from Last 3 Encounters: 05/30/21 118.4 kg (261 lb) 04/08/21 131.5 kg (290 lb) 02/14/21 132.9 kg (293 lb) General appearance - alert, well appearing, and in no distress Mental Status -alert and oriented ENT - normal canals, normal TM B, normal orophayrgeal mucosa Neck - supple, no significant adenopathy, no thyromegaly Lungs - decreased air movement, symmetric air entry, non-labored resp effort Heart - normal rate, regular rhythm, normal S1, S2, no murmurs, rubs, clicks or gallops Abdomen - soft, nontender, nondistended, no obvious masses, BS+ no hepatomegaly no splenomegaly Extremities - peripheral pulses normal, no pedal edema Skin - The visualized skin no for new lesions, rash, sores, hair loss ASSESSMENT AND PLAN: ICD-10-CM 1. Hospital discharge follow-up Z09 She is due for several f/u items re: blood work. She is making gradual progress but 2. Pneumonia due to COVID-19 virus U07.1 Still requires O2 1-2 L. Has home health, J12.82 With PT and nursing still coming out. 3. On home O2 Z99.81 Would like to return to work at this time but Not recovered sufficiently. Willhave her gradually add walking 4-5 min in her home several times daily and f/u in 2-4 weeks. 4. Anemia, unspecified type D64.9 CBC WITH DIFFERENTIAL COMPREHENSIVE METABOLIC PANEL 5. Hypothyroidism, unspecified type E03.9 TSH 6. Prediabetes R73.03 HEMOGLOBIN A1C W EAG Orders Placed This Encounter ??? CBC WITH DIFFERENTIAL ??? COMPREHENSIVE METABOLIC PANEL ??? TSH ??? HEMOGLOBIN A1C W EAG ??? albuterol HFA (PROVENTIL; VENTOLIN; PROAIR) 108 (90 Base) MCG/ACT inhaler There are no Patient Instructions on file [...] ??? metFORMIN (GLUCOPHAGE) 500 MG tablet Take 500 mg by mouth 2 times daily ??? Oxygen [place] 3-6 L/min into the nose ??? pantoprazole EC (PROTONIX) 40 MG tablet Take 40 mg by mouth once daily No current facility-administered medications for this visit. No follow-ups on file. ER TRIMMER HAND documented in this encounter Plan of Treatment Not on file documented as of this encounter Goals Goal Patient Goal Type Associated Problems Recent Progress Patient-Stated? Author Have labs drawn Lifestyle No Kristel Lainez documented as of this encounter Procedures Procedure Name Priority Date/Time Associated Diagnosis Comments CBC W AUTO DIFFERENTIAL Routine 05/30/2021 11:48 AM ZIPPER TRIMMER HAND Anemia, unspecified type COMPREHENSIVE METABOLIC PANEL Routine 05/30/2021 11:48 AM ZIPPER TRIMMER HAND Anemia, unspecified type HEMOGLOBIN A1C W EAG Routine 05/30/2021 11:47 AM ZIPPER TRIMMER HAND Prediabetes TSH Routine 05/30/2021 11:47 AM ZIPPER TRIMMER HAND Hypothyroidism, unspecified type documented in this encounter Results * (ABNORMAL) COMPREHENSIVE METABOLIC PANEL (05/30/2021 11:48 AM ZIPPER TRIMMER HAND) Glucose 162(H) 70 - 105 mg/dL [facility] [...] BLOOD SPECIMEN / Unknown 05/30/2021 11:48 AM ZIPPER TRIMMER HAND 05/30/2021 Narrative Resulting Agency Comment Lab Testing performed at: [facility] [address] [address] ?? [facility] [phone] Noris Bob MD LAB - CHEMISTRY LIZANDRO FISHMAN [facility] ACCOUNT BILL [address] [place] [address] * (ABNORMAL) CBC WITH DIFFERENTIAL (05/30/2021 11:48 AM ZIPPER TRIMMER HAND) WBC 8.4 4.4 - 10.7 x10E9/L [facility] [...] x10E9/L [facility] ACCOUNT BILL Comment:MPV FL BLOOD ([facility]) 1 3.6 fl 9.4-12.9 H Granulocytes % [...] BLOOD SPECIMEN / Unknown 05/30/2021 11:48 AM ZIPPER TRIMMER HAND 05/30/2021 Narrative Resulting Agency Comment Lab Testing performed at: [facility] [address] [place] [address] ?? [facility] [id number] Noris Bob MD LAB - HEMATOLOGY ORD ERABLES [facility] ACCOUNT BILL [address] [place] [address] * (ABNORMAL) HEMOGLOBIN A1C W EAG (05/30/2021 11:47 AM ZIPPER TRIMMER HAND) Hemoglobin A1c 6.3(H) 4.2 - 5.6 % [...] BLOOD SPECIMEN / Unknown 05/30/2021 11:47 AM ZIPPER TRIMMER HAND 05/30/2021 Narrative Resulting Agency Comment Lab Testing performed at: [place] [address] ?? Anna KABA [id number] Noris Bob MD LAB - CHEMISTRY LIZANDRO FISHMAN [facility] ACCOUNT BILL [address] [place] [address] * TSH (05/30/2021 11:47 AM ZIPPER TRIMMER HAND) TSH 2.2940 0.35 - 4.94 uIU/mL [facility] ACCOUNT BILL Blood BLOOD SPECIMEN / Unknown 05/30/2021 11:47 AM ZIPPER TRIMMER HAND 05/30/2021 Narrative Resulting Agency Comment Lab Testing performed at: [place] [address] ?? Anna KABA [id number] Noris Bob MD LAB - CHEMISTRY LIZANDRO FISHMAN Performing Organization Address City/[facility] Co de Phone Number [facility] ACCOUNT BILL [address] [place] [address] documented in this encounter Visit Diagnoses Diagnosis Hospital discharge follow-up- Primary Other follow-up examination Pneumonia due to COVID-19 virus On home O2 Dependence on supplemental oxygen Anemia, unspecified type Hypothyroidism, unspecified type Prediabetes Other abnormal glucose documented in this encounter Care Teams Locomotive Firer/Fireman Relationship Specialty Start Date End Date Noris Bob MD [address] [place] [address] PCP - General Family Medicine 04/23/16 10/25/22 documented as of this encounter
--- OUTSIDE RECORDS SUMMARY | 2024-06-26 02:24 | XMS_ITS | Encounter Summary ---
Author Organization [facility] Address [address] [place] [address] Care Team Providers Care Lime Burner Name Role Phone Noris Bob MD Primary Care Provider [phone] Reason for Visit * Reason Comments Follow-up 3 month Requesting Labs Encounter Details Date Type Department Care Team (Late st Contact Info) Description 12/23/2016 8:30 AM CDT Office Visit [facility] - Family Medicine [address] [place] [address] Noris Bob MD [address] [place] [address] Abnormal glucose (Primary Dx); Hypothyroidism, unspecified [...] Sign Reading Time Taken Comments Blood Pressure 117/68 12/23/2016 8:34 AM CDT Pulse 62 12/23/2016 8:34 AM CDT Temperature - - Respiratory Rate - - Oxygen Saturation - - Inhaled Oxygen Concentration - - Weight 121.8 kg (268 lb 9.6 oz) 12/23/2016 8:34 AM CDT Height 172.7 cm (5' 8 ) 12/23/2016 8:34 AM CDT Body Mass Index 40.84 12/23/2016 8:34 AM CDT documented in this encounter Progress Notes * Marsha De Jesus LPN - 12/25/2016 7:38 AM CDT Sent via my chart * Noris Bob MD - 12/24/2016 4:35 PM CDT Your thyroid is nicely at goal. Your urine is normal. Your HA1C is much better than 6 months ago at 5.2. Your fasting glucose was up slightly this time compared to last time but that can be related to the food the night before, if you are fighting an illess etc. With the HA1C of 5.2 I would not worry about it but instead keep up the good work with activity and your diet! * Noris Bob MD - 12/23/2016 8:31 AM CDT SUBJECTIVE: Shaina Huynh is a 41 y.o. female who complains of Chief Complaint Patient presents with ??? Follow-up 3 month ??? Requesting Labs Here for f/u of her blood sugar and thyroid. Working hard on her diet. She is trying to conceive. Walking daily. She lost weight that she gained. Feels great. No fatigue, no stool changes. Patient Active Problem List Diagnosis ??? BMI [...] No Known Allergies REVIEW OF SYSTEMS: GEN: + weight loss. CV: Denies chest pain, GI: No nausea, vomiting, Denies abdominal pain . OBJECTIVE: BP 117/68 Pulse 62 Ht 1.727 m (5' 8 ) Wt 121.8 kg (268 lb 9.6 oz) BMI 40.84 kg/m2 Body mass index is 40.84 kg/(m^2). Wt Readings from Last 3 Encounters: 12/23/16 121.8 kg (268 lb 9.6 oz) 09/29/16 125.2 kg (276 lb) 05/13/16 122 kg (269 lb) General appearance - alert, well appearing, [...] AND PLAN: ICD-10-CM 1. Abnormal glucose R73.09 MICROALB/CREAT RATIO URINE RANDOM PANEL HEMOGLOBIN A1C W EAG BASIC METABOLIC PANEL (CALCIUM TOTAL) 2. Hypothyroidism, unspecified type E03.9 T4 FREE TSH 3. BMI 40.0-44.9, adult Z68.41 Doing a great job! Keep up the good work! Orders Placed This Encounter ??? MICROALB/CREAT RATIO URINE RANDOM PANEL ??? HEMOGLOBIN A1C W EAG ??? T4 FREE ??? TSH ??? BASIC METABOLIC PANEL (CALCIUM TOTAL) ??? Vit-Fe Wyp-LE-Uziqw (SHIPWRIGHT SUPERVISOR-PNV-DHA) 28--215.8 MG CAPS There are no Patient Instructions on file for this visit. Medications Discontinued During This Encounter Medication Reason ??? Vit-Fe Tco-MW-Upmzf (SHIPWRIGHT SUPERVISOR-PNV-DHA PO) Does not display on AVS Current Outpatient Prescriptions Medication Sig Dispense Refill ??? Vit-Fe Cib-EW-Ttglq (SHIPWRIGHT SUPERVISOR-PNV-DHA) 28-1-215.8 MG CAPS Take 1 Cap by mouth once daily 90 Cap 3 ??? levothyroxine (SYNTHROID) 25 MCG tablet Take 1 Tab by mouth once daily 90 Tab 3 No current facility-administered medications for this visit. Return in about 3 months (around 03/25/2017). documented in this encounter Plan of Treatment Not on file documented as of this encounter Goals Goal Patient Goal Type Associated Problems Recent Progress Patient-Stated? Author Have labs drawn Lifestyle Kristel Patrick documented as of this encounter Procedures Procedure Name Priority Date/Time Associated Diagnosis Comments HEMOGLOBIN A1C W EAG Routine 12/23/2016 9:26 AM CDT Abnormal glucose MICROALB/CREAT RATIO URINE RANDOM PANEL Routine 12/23/2016 9:26 AM CDT Abnormal glucose BASIC METABOLIC PANEL (CALCIUM TOTAL) Routine 12/23/2016 9:26 AM CDT Abnormal glucose TSH Routine 12/23/2016 9:26 AM CDT Hypothyroidism, unspecified type T4 FREE Routine 12/23/2016 9:26 AM CDT Hypothyroidism, unspecified type documented in this encounter Results * (ABNORMAL) BASIC METABOLIC PANEL (CALCIUM TOTAL) (12/23/2016 9:26 AM CDT) [facility] Glucose 105(H) 65 - 99 mg/dL [facility] [...] APPLICABLE 6 - 22 (calc) [facility] Sodium 141 135 - 146 mmol/L [facility] Potassium 4.4 3.5 - 5.3 mmol/L [facility] Chloride 107 98 - 110 mmol/L [facility] CO2 25 20 - 31 mmol/L [facility] Calcium 9.3 8.6 - 10.2 mg/dL [facility] Comment: Test Performed at: [facility] [id number] [place], [place] ??[address] PACO HIGHTOWER DO,MPH Blood BLOOD SPECIMEN / Unknown 12/23/2016 9:26 AM CDT 12/23/2016 9:27 AM CDT Noris Bob MD LAB - CHEMISTRY LIZANDRO FISHMAN Performing Organization Address [facility] de Phone Number [facility] [address] [place] [address] * TSH (12/23/2016 9:26 AM CDT) Pathologist [facility] TSH 4.40 mIU/L [facility] Comment: ?Reference Range ?> or = 20 Years ??0.40-4.50 ? Ranges ?First trimester ?0.26-2.66 ?Second trimester ?? 0.55-2.73 ?Third trimester ?0.43-2.91 Test Performed at: [facility] ??[address] PACO HIGHTOWER DO,MPH Blood BLOOD SPECIMEN / Unknown 12/23/2016 9:26 AM CDT 12/23/2016 9:27 AM CDT Noris Bob MD LAB - CHEMISTRY LIZANDRO FISHMAN Performing Organization Address [facility] de Phone Number [facility] [address] [place] [address] * T4 FREE (12/23/2016 9:26 AM CDT) Pathologist [facility] T4 Free 1.1 0.8 - 1.8 ng/dL [facility] Comment: Test Performed at: [facility] [id number] [place], [place] ??[address] PACO HIGHTOWER DO,MPH Blood BLOOD SPECIMEN / Unknown 12/23/2016 9:26 AM CDT 12/23/2016 9:27 AM CDT Noris Bob MD LAB - CHEMISTRY LIZANDRO FISHMAN Performing Organization Address [facility] de Phone Number [facility] [address] [place] [phone] * HEMOGLOBIN A1C W EAG (12/23/2016 9:26 AM CDT) Hemoglobin A1c 5.2 <5.7 % of total Hgb [facility] Comment: For the purpose of screening for the presence of diabetes: <5.7% ? Consistent with the absence of diabetes 5.7-6.4% ?Consistent with increased risk for diabetes ?(prediabetes) > or =6.5% ??Consistent with diabetes This assay result is consistent with a decreased risk of diabetes. Currently, no consensus exists regarding use of hemoglobin A1c for diagnosis of diabetes in children. According to [place] Diabetes Association (ADA) guidelines, hemoglobin A1c <7.0% represents optimal control in non- diabetic patients. Different metrics may apply to specific patient populations. Standards of Medical Care in Diabetes(ADA). ?? Estimated Average Glucose 103 (calc) [facility] Estimated Average Glucose 5.7 (calc) [facility] Comment: REPORT COMMENT: FASTING:YES Test Performed at: [place] ??[phone] PACO HIGHTOWER DO,MPH Blood BLOOD SPECIMEN / Unknown 12/23/2016 9:26 AM CDT 12/23/2016 9:27 AM CDT Noris Bob MD LAB - CHEMISTRY LIZANDRO FISHMAN Performing Organization Address [facility] Co de Phone Number [facility] [address] [place] [address] * MICROALB/CREAT RATIO URINE RANDOM PANEL (12/23/2016 9:26 AM CDT) Creatinine Urine 133 20 - 320 mg/dL [facility] Comment: Test Performed at: [facility] [address] [place], [place] ??[address] PACO HIGHTOWER DO,MPH Microalbumin Urine 0.5 mg/dL [facility] Comment: Reference Range Not established Test Performed at: [facility] [address] ??[phone] PACO HIGHTOWER DO,MPH Microalbumin/Creat inine Ratio 4 <30 mcg/mg creat [facility] Comment: The ADA defines abnormalities in albumin excretion as follows: Category ? Result (mcg/mg creatinine) Normal ?<30 Microalbuminuria ? 30-299 Clinical albuminuria ?? > OR = 300 The ADA recommends that at least two of three specimens collected within a 3-6 month period be abnormal before considering a patient to be within a diagnostic category. Urine URINE SPECIMEN OBTAINED BY CLEAN CATCH PROCEDURE / Unknown 12/23/2016 9:26 AM CDT 12/23/2016 9:27 AM CDT Noris Bob MD LAB - URINE CHEMISTR Y ORDERABLES Performing Organization Address City/State/[facility] Co de Phone Number [facility] [address] [place] [address] documented in this encounter Visit Diagnoses Diagnosis Abnormal glucose- Primary Hypothyroidism, unspecified type BMI 40.0-44.9, adult (HCC) Body Mass Index 40.0-44.9, adult documented in this encounter Care Teams Lime Burner Relationship Specialty Start Date End Date Noris Bob MD [address] [place] [id number] PCP - General Family Medicine 04/23/16 10/25/22 documented as of this encounter
--- OUTSIDE RECORDS SUMMARY | 2024-06-26 02:24 | XMS_ITS | Encounter Summary ---
Author Organization [facility] Address [address] [place] [address] Care Team Providers Care Prefitter Name Role Phone Noris Bob MD Primary Care Provider [phone] Reason for Referral * Radiology Services (Routine) - Closed Specialty Diagnoses / Procedures Referred By Armando anna Referred To Contact Diagnoses Abnormal mammogram of right breast Procedures MAMMO RIGHT DIAGNOSTIC W ERMELINDA MAMMO RIGHT DIAGNOSTIC Noris Bob MD [address] [place] [address] Referral ID Status Reason Start Date Expiration Date Visits Re quested Visits Authorized [id number] Closed 03/04/2021 03/04/2022 1 1 Reason for Visit * Radiology Services (Routine) - Closed Specialty Diagnoses / Procedures Referred By Armando anna Referred To Contact Diagnoses Abnormal mammogram of right breast Procedures MAMMO RIGHT DIAGNOSTIC W ERMELINDA MAMMO RIGHT DIAGNOSTIC Noris Bob MD [address] [place] [address] Referral ID Status Reason Start Date Expiration Date Visits Re quested Visits Authorized [id number] Closed 03/04/2021 03/04/2022 1 1 Encounter Details Date Type Department Care Team (Late st Contact Info) Description 03/27/2021 2:50 PM CDT - 03/27/2021 11:59 PM CDT Hospital Encounter [facility] Breast Care [address] [place] [address] [place] [address] Noris Bob MD [address] [place] [address] Discharge Disposition: Home or Self Care [...] Name Priority Date/Time Associated Diagnosis Comments MAMMO RIGHT DIAGNOSTIC W ERMELINDA Routine 03/27/2021 3:18 PM CDT Abnormal mammogram of right breast documented in this encounter Results * MAMMO RIGHT DIAGNOSTIC W ERMELINDA (03/27/2021 [...] participate in the care of your patient. [facility] utilizes [employer] as a reminder system to notify patients [...] lower outer right breast performed by the clinical nursing director. There is no suspicious solid or cystic mass. No definite correlate identified for the mammographic mass. Noris Bob MD MAMMO ORDERABLES documented in this encounter Visit Diagnoses Diagnosis Abnormal mammogram of right breast Mass of lower outer quadrant of right breast documented in this encounter Care Teams Prefitter Relationship Specialty Start Date End Date Noris Bob MD [address] [facility] [place] [address] PCP - General Family Medicine 04/23/16 10/25/22 documented as of this encounter
--- OUTSIDE RECORDS SUMMARY | 2024-06-26 02:24 | XMS_ITS | Encounter Summary ---
Author Organization [facility] Address [address] [facility] [place] [address] Care Team Providers Care Clinical Business Manager Name Role Phone Noris Bob MD Primary Care Provider [phone] Reason for Visit * Reason Onset Date Comments General 05/10/2021 hospital f/u Encounter Details Date Type Department Care Team (Late st Contact Info) Description 05/10/2021 Telephone [facility] Medical [facility] - Family Medicine [address] [place] [address] Noris Bob MD [address] [place] [phone] General (hospital f/u) Social History Tobacco Use Types Packs/Day Years [...] Encounter - Marsha De Jesus LPN - 05/12/2021 10:02 AM HOTEL REGISTRATION CLERK appt scheduled for May 30 Pulmonary appt MAY 30 at 1:15 L REGISTRATION CLERK * Telephone Encounter - Noris Bob MD - 05/10/2021 7:45 AM CST Please call her and get her set up with f/u hospitalization. With me. (covid 04/14-05/09) L REGISTRATION CLERK documented in this encounter Plan of Treatment Not on file documented as of this encounter Goals Goal Patient Goal Type Associated Problems Recent Progress Patient-Stated? Author Have labs drawn Lifestyle No Migel Kristel Fatimah documented as of this encounter Visit Diagnoses Not on filedocumented in this encounter Care Teams Clinical Business Manager Relationship Specialty Start Date End Date Noris Bob MD [address] [place] [address] PCP - General Family Medicine 04/23/16 10/25/22 documented as of this encounter
--- OUTSIDE RECORDS SUMMARY | 2024-06-26 02:24 | XMS_ITS | Encounter Summary ---
Author Organization [facility] Address [address] [place] [address] Care Team Providers Care Spd Manager Name Role Phone Noris Bob MD Primary Care Provider [phone] Reason for Visit * Reason Comments Follow-up 4 month Encounter Details Date Type Department Care Team (Late st Contact Info) Description 09/29/2016 11:30 AM CDT Office Visit [facility] - Family Medicine [address] [place] [address] Noris Bob MD [address] [place] [phone] Abnormal glucose (Primary Dx); BMI 40.0-44.9, adult (HCC) Social History Tobacco [...] Sign Reading Time Taken Comments Blood Pressure 107/60 09/29/2016 11:31 AM CDT Pulse 60 09/29/2016 11:31 AM CDT Temperature - - Respiratory Rate - - Oxygen Saturation - - Inhaled Oxygen Concentration - - Weight 125.2 kg (276 lb) 09/29/2016 11:31 AM CDT Height 172.7 cm (5' 8 ) 09/29/2016 11:31 AM CDT Body Mass Index 41.97 09/29/2016 11:31 AM CDT documented in this encounter Progress Notes * Noris Bob MD - 09/29/2016 9:30 PM CDT SUBJECTIVE: Shaina Huynh is a 41 y.o. female who complains of Chief Complaint Patient presents with ??? Follow-up 4 month/weight and blood sugar She's here for follow-up of her elevated blood sugars and her weight. She's got a little bit off track and gained a few pounds back. She had been unable to exercise with the weather. Please getting back into it and is keeping a closer eye on her carbohydrates. She and her are thinking aboutattempting again and she wants to continue to get this down before they do that. She is still following her diabetic diet. In addition, she has had some Patient Active Problem List Diagnosis ??? BMI 40.0-44.9, adult ??? Hypothyroidism ??? Abnormal glucose Past Medical History Diagnosis Date ??? Gestational diabetes Family History Problem Relation Age of Onset ??? Diabetes Father ??? Heart Disease Father ??? Breast Cancer after age 50 or unknown Paternal Aunt ??? Breast Cancer after age 50 or unknown Maternal Aunt lung ca as well History Social History ??? Marital status: Spouse name: N/A ??? Number of children: N/A ??? Years of education: N/A Occupational History ??? Not on file. Social History Main Topics ??? Smoking status: Never Smoker ??? Smokeless tobacco: Not on file ??? Alcohol use: No ??? Drug use: No ??? Sexual activity: Not on file Other Topics Concern ??? Not on file Social History Narrative Works at [employer] No Known Allergies REVIEW OF SYSTEMS: GEN: No fevers, chills, HEENT: + congestion, +post nasal drainage Respiratory: Denies dyspnea, cough, OBJECTIVE: BP 107/60 Pulse 60 Ht 1.727 m (5' 8 ) Wt 125.2 kg (276 lb) BMI 41.97 kg/m2 Body mass index is 41.97kg/(m^2). Wt Readings from Last 3 Encounters: 09/29/16 125.2 kg (276 lb) 05/13/16 122 [...] soft, nontender, nondistended, no obvious masses, BS+ Extremities - peripheral pulses normal, no pedal edema Skin - The visualized skin no for new lesions, rash, sores, hair loss ASSESSMENT AND PLAN: ICD-10-CM 1. Abnormal glucose R73.09 2. BMI 40.0-44.9, adult Z68.41 Reviewed her diet and exercise goals again. We will repeat labs at her f/u in 3 months. 3. Allergic rhinitis - consider a trial of OTC zyrtec. No orders of the defined types were placed in this encounter. There are no Patient Instructions on file for this visit. There are no discontinued medications. Current Outpatient Prescriptions Medication Sig Dispense Refill ??? levothyroxine (SYNTHROID) 25 MCG tablet Take 1 Tab by mouth once daily 90 Tab 3 ??? Vit-Fe Hnt-HR-Bcsox (COIL MACHINE SUPERVISOR-PNV-DHA PO) No current facility-administered medications for this visit. Return in about 3 months (around 12/29/2016). documented in this encounter Plan of Treatment Not on file documented as of this encounter Goals Goal Patient Goal Type Associated Problems Recent Progress Patient-Stated? Author Have labs drawn Lifestyle No Kristel Lainez documented as of this encounter Visit Diagnoses Diagnosis Abnormal glucose- Primary BMI 40.0-44.9, adult (HCC) Body Mass Index 40.0-44.9, adult documented in this encounter Care Teams Spd Manager Relationship Specialty Start Date End Date Noris Bob MD [address] [place] [address] PCP - General Family Medicine 04/23/16 10/25/22 documented as of this encounter
--- OUTSIDE RECORDS SUMMARY | 2024-06-26 02:24 | XMS_ITS | Encounter Summary ---
Author Organization [facility] Address [address] [facility] [place] [address] Care Team Providers Care Mdm Sr Name Role Phone Noris Bob MD Primary Care Provider [phone] Reason for Referral * Radiology Services (Routine) - Closed Specialty Diagnoses / Procedures Referred By Armando anna Referred To Contact Diagnoses Abnormal mammogram of right breast Procedures MAMMO RIGHT DIAGNOSTIC W ERMELINAD MAMMO RIGHT DIAGNOSTIC Noris Bob MD [address] [place] [address] Referral ID Status Reason Start Date Expiration Date Visits Re quested Visits Authorized [id number] Closed 03/04/2021 03/04/2022 1 1 Reason for Visit * Reason Onset Date Comments Results 03/04/2021 Encounter Details Date Type Department Care Team (Late st Contact Info) Description 03/04/2021 Telephone [facility] - Family Medicine [address] [place] [address] Noris Bob MD [facility] [place] [address] Results Social History Tobacco Use Types Packs/Day [...] Encounter - Marsha De Jesus LPN - 03/04/2021 1:54 PM CDT ----- Message from Noris Bob MD sent at 03/03/2021 4:46 PM CDT ----- Her mammogram showed an area that they want to look at more closely. Please let her know and order Diagnostic mammogram and Breast US. documented in this encounter Plan of Treatment Not on file documented as of this encounter Goals Goal Patient Goal Type Associated Problems Recent Progress Patient-Stated? Author Have labs drawn Lifestyle Kristel Patrick documented as of this encounter Results * MAMMO RIGHT DIAGNOSTIC [...] participate in the care of your patient. [facility] utilizes [employer] as a reminder system to notify patients [...] lower outer right breast performed by the administrative judge. There is no suspicious solid or cystic mass. No definite correlate identified for the mammographic mass. Noris Bob MD MAMMO ORDERABLES documented in this encounter Visit Diagnoses Diagnosis Abnormal mammogram of right breast- Primary Abnormal mammogram of right breast Mass of lower outer quadrant of right breast documented in this encounter Care Teams Mdm Sr Relationship Specialty Start Date End Date Noris Bob MD [address] [place] [address] PCP - General Family Medicine 04/23/16 10/25/22 documented as of this encounter
--- OUTSIDE RECORDS SUMMARY | 2024-06-26 02:24 | XMS_ITS | Encounter Summary ---
Author Organization [facility] Address [address] [facility] [place] [address] Care Team Providers Care Manager Material Name Role Phone Noris Bob MD Primary Care Provider [phone] Reason for Visit * Reason Comments Refill Request Encounter Details Date Type Department Care Team (Late st Contact Info) Description 03/12/2018 Refill [facility] Medical [facility] - Family Medicine [address] [place] [address] Noris Bob MD [address] [place] [address] Refill Request Social History Tobacco Use [...] on filedocumented in this encounter Care Teams Manager Material Relationship Specialty Start Date End Date Noris Bob MD [address] [place] [address] PCP - General Family Medicine 04/23/16 10/25/22 documented as of this encounter
--- OUTSIDE RECORDS SUMMARY | 2024-06-26 02:24 | XMS_ITS | Encounter Summary ---
Author Organization [facility] Address [address] [facility] [place] [address] Care Team Providers Care Liner Machine Operator Helper Name Role Phone Noris Bob MD Primary Care Provider [phone] Reason for Visit * Reason Onset Date Comments MEDICATION REFILL 09/11/2016 Encounter Details Date Type Department Care Team (Late st Contact Info) Description 09/11/2016 Refill [facility] - Family Medicine [address] [place] [address] Noris Bob MD [address] [place] [address] MEDICATION REFILL Social History Tobacco Use [...] encounter Miscellaneous Notes * Telephone Encounter - Gogo Owens - 09/11/2016 12:47 PM CDT Requested Prescriptions Pending Prescriptions Disp Refills ??? levothyroxine (SYNTHROID) 25 MCG tablet Sig: Take 1 Tab by mouth once daily last fill 05/13 Last ov 09/15 documented in this encounter Plan of Treatment Not on file documented as of this encounter Goals Goal Patient Goal Type Associated Problems Recent Progress Patient-Stated? Author Have labs drawn Lifestyle No Kristel Lainez documented as of this encounter Visit Diagnoses Not on filedocumented in this encounter Care Teams Liner Machine Operator Helper Relationship Specialty Start Date End Date Noris Bob MD [address] [place] [address] PCP - General Family Medicine 04/23/16 10/25/22 documented as of this encounter
--- OUTSIDE RECORDS SUMMARY | 2024-06-26 02:24 | XMS_ITS | Encounter Summary ---
Author Organization [facility] Address [address] [facility] [place] [address] Care Team Providers Care Boiler/Chiller Technician Name Role Phone Noris Bob MD Primary Care Provider [phone] Reason for Visit * Reason Comments Refill Request Encounter Details Date Type Department Care Team (Late st Contact Info) Description 09/14/2018 Refill [facility] Medical [facility] - Family Medicine [address] [place] [address] Noris Bob MD [address] [place] [address] Refill Request Social History Tobacco [...] on filedocumented in this encounter Care Teams Boiler/Chiller Technician Relationship Specialty Start Date End Date Noris Bob MD [address] [place] [address] PCP - General Family Medicine 04/23/16 10/25/22 documented as of this encounter
--- OUTSIDE RECORDS SUMMARY | 2024-06-26 02:24 | XMS_ITS | Encounter Summary ---
Author Organization [facility] Address [address] [place] [address] Care Team Providers Care Resident Caregiver Name Role Phone Noris Bob MD Primary Care Provider [phone] Reason for Visit * Reason Comments Follow-up Upper Extremity Problem left shoulder Encounter Details Date Type Department Care Team (Late st Contact Info) Description 11/10/2017 11:30 AM CDT Office Visit [facility] - Family Medicine [address] [place] [id number] Noris Bob MD [address] [place] [phone] Abnormal glucose (Primary Dx); Hypothyroidism, unspecified [...] Sign Reading Time Taken Comments Blood Pressure 112/67 11/10/2017 11:28 AM CDT Pulse 57 11/10/2017 11:28 AM CDT Temperature - - Respiratory Rate - - Oxygen Saturation - - Inhaled Oxygen Concentration - - Weight 126.4 kg (278 lb 9.6 oz) 018 11:28 AM CDT Height 172.7 cm (5' 8 ) 11/10/2017 11:2 8 AM CDT Body Mass Index 42.36 11/10/2017 11:28 AM CDT documented in this encounter Progress Notes * Noris Bob MD - 11/10/2017 11:57 AM CDT SUBJECTIVE: Shaina Huynh is a 42 y.o. female who complains of Chief Complaint Patient presents with ??? Follow-up Thyroid and blood sugar HPI: She got a bit off track with her diet and just went to [facility]. Her weight was up by 10 lbs and she and have started back with exercise and diet again. Is taking levothyroxine daily. No fatigue, no [...] vomiting, Denies abdominal pain . OBJECTIVE: BP 112/67 Pulse 57 Ht 1.727 m (5' 8 ) Wt 126.4 kg (278 lb 9.6 oz) BMI 42.36 kg/m2 Body mass index is 42.36 kg/(m^2). Wt Readings from Last 3 Encounters: 11/10/17 126.4 kg (278 lb 9.6 oz) 06/29/17 124.3 kg (274 lb) 12/23/16 121.8 kg (268 lb 9.6 oz) General appearance - alert, [...] PLAN: ICD-10-CM 1. Abnormal glucose R73.09 She has gained about 10 lbs over the past year running the risk of reacquiring diabetes. Discussed this and she has already made good changes. Labs/follow up for this in 4 months. 2. Hypothyroidism, unspecified type E03.9 TSH Due repeat. There are no discontinued medications. Current Outpatient Prescriptions Medication Sig Dispense Refill ??? levothyroxine (SYNTHROID) 25 MCG tablet Take 1 Tab by mouth once daily 90 Tab 3 ??? Vit-Fe Vjk-RM-Icflj (ASSISTANT GOLF COACH-PNV-DHA) 28-1-215.8 MG CAPS Take 1 Cap by mouth once daily 90 Cap 3 No current facility-administered medications for this visit. Return in about 4 months (around 03/13/2018). documented in this encounter Plan of Treatment Not on file documented as of this encounter Goals Goal Patient Goal Type Associated Problems Recent Progress Patient-Stated? Author Have labs drawn Lifestyle No Kristel Lainez documented as of this encounter Procedures Procedure Name Priority Date/Time Associated Diagnosis Comments TSH Routine 11/10/2017 12:24 PM CDT Hypothyroidism, unspecified type documented in this encounter Results * TSH (11/10/2017 12:24 PM CDT) TSH 2.68 0.358 - 3.740 uIU/mL [facility] ACCOUNT BILL Blood BLOOD SPECIMEN / Unknown 11/10/2017 12:24 PM CDT 11/10/2017 Narrative Resulting Agency Comment [facility] [address] [id number] Noris Bob MD LAB - CHEMISTRY LIZANDRO FISHMAN [facility] ACCOUNT BILL [address] [place] [address] documented in this encounter Visit Diagnoses Diagnosis Abnormal glucose- Primary Hypothyroidism, unspecified type documented in this encounter Care Teams Resident Caregiver Relationship Specialty Start Date End Date Noris Bob MD [address] [place] [phone] PCP - General Family Medicine 04/23/16 10/25/22 documented as of this encounter
--- OUTSIDE RECORDS SUMMARY | 2024-06-26 02:24 | XMS_ITS | Encounter Summary ---
Author Organization [facility] Address [address] [place] [address] Care Team Providers Care Oil Dispenser Name Role Phone Noris Bob MD Primary Care Provider [phone] Reason for Referral * Radiology Services (Routine) - Closed Specialty Diagnoses / Procedures Referred By Armando t Referred To Contact Mammography Diagnoses Screening for breast cancer Procedures MAMMO SCREENING DIGITAL IMAGE BILAT MAMMO SCREENING DIGITAL IMAGE Noris Miller MD [address] [place] [address] [facility] [address] [address] Referral ID Status Reason Start Date Expiration Date Visits Re quested Visits Authorized [id number] Closed 05/13/2016 11/09/2016 1 1 RS AND EMULSIFIERS SUPERVISOR Reason for Visit * Radiology Services (Routine) - Closed Specialty Diagnoses / Procedures Referred By Contac t Referred To Contact Mammography Diagnoses Screening for breast cancer Procedures MAMMO SCREENING DIGITAL IMAGE BILAT MAMMO SCREENING DIGITAL IMAGE Noris Miller MD [address] [place] [address] [facility] [address] [address] Referral ID Status Reason Start Date Expiration Date Visits Re quested Visits Authorized [id number] Closed 05/13/2016 11/09/2016 1 1 Encounter Details Date Type Department Care Team (Late st Contact Info) Description 06/17/2016 12:44 PM ESTERS AND EMULSIFIERS SUPERVISOR - 06/17/2016 11:59 PM ESTERS AND EMULSIFIERS SUPERVISOR Hospital Encounter [facility] Breast [facility] [address] [place] [address] Noris Bob MD [address] [place] [address] Discharge Disposition: [...] Date levothyroxine (SYNTHROID) 25 MCG tablet Take 25 mcg by mouth once daily 02/28/2016 09/11/2016 Vit-Fe Bcw-EQ-Vtvgz (GRAIN OPERATOR-PNV-DHA PO) 12/23/2016 documented as of this encounter Plan of Treatment Not on file documented as of this encounter Goals Goal Patient Goal Type Associated Problems Recent Progress Patient-Stated? Author Have labs drawn Lifestyle No MigelKristel documented as of this encounter Procedures Procedure Name Priority Date/Time Associated Diagnosis Comments MAMMO BILAT SCREENING Routine 06/17/2016 1:13 PM ESTERS AND EMULSIFIERS SUPERVISOR Screening for breast cancer documented in this encounter Results * MAMMO SCREENING DIGITAL IMAGE BILAT (06/17/2016 1:13 PM ESTERS AND EMULSIFIERS SUPERVISOR) Anatomical Region Laterality Modality Breast Bilateral Mammography 06/17/2016 2:54 PM ESTERS AND EMULSIFIERS SUPERVISOR Impressions 06/17/2016 2:56 PM ESTERS AND EMULSIFIERS SUPERVISOR No mammographic evidence of malignancy in either breast. ASSESSMENT: BIRADS Category 1: Negative mammogram. RECOMMENDATION: Bilateral screening mammogram in one year. Thank you for allowing us to participate in the care of your patient. [facility] Breast [facility] utilizes [employer] as a reminder system to notify patients of their next recommended mammogram. Narrative 06/17/2016 2:56 PM ESTERS AND EMULSIFIERS SUPERVISOR EXAMINATION: Digital screening mammogram on 06/17/2016. Low-dose full-field digital breast tomosynthesis examination was performed with synthetic 2D images and 3D acquisitions. Computer assisted detection was utilized. PRIOR: This is the patient's baseline mammogram. ??No previous breast imaging studies are available for comparison. BREAST PARENCHYMAL DENSITY: The breasts are heterogeneously dense, which may obscure small masses. RISK ASSESSMENT CALCULATION: Not performed. FINDINGS: No suspicious masses, areas of architectural distortion or microcalcifications are evident on synthetic 2D mammogram or tomosynthesis images. Noris Bob MD MAMMO ORDERABLES documented in this encounter Visit Diagnoses Diagnosis Screening for breast cancer Breast screening, unspecified documented in this encounter Care Teams Oil Dispenser Relationship Specialty Start Date End Date Noris Bob MD [address] [place] [address] PCP - General Family Medicine 04/23/16 10/25/22 documented as of this encounter
--- OUTSIDE RECORDS SUMMARY | 2024-06-26 02:25 | XMS_ITS | Encounter Summary ---
Author Organization [facility] Address [address] [place] [address] Phone Care Team Providers Care Nougat Candy Maker Helper Name Role Phone Noris Bob MD Primary Care Provide r Miscellaneous, Not In File Unavailable Unava ilable Johnny Salgado MD Unavailable [phone] Reason for Visit * Auth/Cert Specialty Diagnoses / Procedures Referred By Contac t Referred To Contact Referral ID Status Reason Start Date Expiration Date Visits Re quested Visits Authorized [id number] 1 7 Encounter Details Date Type Department Care Team (Late st Contact Info) Description 05/20/2021 1:30 PM WIRE DRAWING MACHINE OPERATOR Home Care Visit [facility] [address] [place] [id number] Stephanie Bullard RN SN HOME VISIT Social History Tobacco Use Types Packs/Day Years Used Date Smoking Tobacco: Never Smokeless Tobacco: Never Alcohol Use Standard Drinks/Week Comments No 0 (1 standard drink = 0.6 oz pur e alcohol) Comments No Sex and Gender Information Value Date Recorded Sex Assigned at Not on file Legal Sex Female 12:51 PM WIRE DRAWING MACHINE OPERATOR Gender Identity Not on file Sexual Orientation Not on file documented as of this encounter Last Filed Vital Signs Vital Sign Reading Time Taken Comments Blood Pressure 110/70 05/20/2021 4:53 PM WIRE DRAWING MACHINE OPERATOR Pulse 100 05/20/2021 4:53 PM WIRE DRAWING MACHINE OPERATOR Temperature 36.9 ??C (98.4 ??F) 05/20/2021 4:53 PM CS T Respiratory Rate 20 05/20/2021 4:53 PM WIRE DRAWING MACHINE OPERATOR Oxygen Saturation 97% 05/20/2021 4:53 PM WIRE DRAWING MACHINE OPERATOR Inhaled Oxygen Concentration - - Weight - - Height - - Body Mass Index - - documented in this encounter Plan of Treatment Not on file documented as of this encounter Visit Diagnoses Not on filedocumented in this encounter Additional Health Concerns Infection Onset Date Last Indicated Resolved Time COVID19 Comment:+04/08/21 Tested @ [facility]. Lizette RN 04/08/2021 04/14/2021 05/25/2021 3:[address] documented as of this encounter Home Health Visit - Care Plan Visit Details Visit Type -SN Home Visit Discipline -Mcfp Problems Problem Description Start Date Status Goals Interventions Energy Conservation - Pneumonia Disciplines: Mcfp Energy Conservation related to pneumonia 1 Active - 1 problem intervention scheduled/documen bina in this visit Learning/Teaching Needs - Diabetes Disciplines: Mcfp Learning and teaching needs associated with diagnosis 1 Active 1 goal linked to scheduled/docume nted intervention 1 goal intervention scheduled/documen bina in this visit Homebound Status Disciplines: Skilled Disciplines Patient's homebound status 1 Active 1 goal linked to scheduled/docume nted intervention 1 goal intervention scheduled/documen bina in this visit Monitor patient's vital signs every home health visit Disciplines: Skilled Disciplines, Home Health Aide Monitor patient's vital signs every home health visit. 1 Active 1 goal linked to scheduled/docume nted intervention 1 goal intervention scheduled/documen bina in this visit Standardized Guidelines Disciplines: Skilled Disciplines Standardized Guidelines 1 Active 1 goal linked to scheduled/docume nted intervention 1 goal intervention scheduled/documen bina in this visit Safety concerns Disciplines: Skilled Disciplines Alteration in safety 1 Active 1 goal linked to scheduled/docume nted intervention 2 goal interventions scheduled/documen bina in this visit Goals Goal Associated Problem Outcome Goal Met? Visit Notes Demonstrate adequate knowledge of Diabetes Description: Patient/caregiver will demonstrate adequate knowledge of diabetes as evidenced by the ability to perform blood sugar monitoring, care of feet, skin and eyes and signs/symptoms of altered glycemic states and their treatment by the end of the episode of care. Learning/Teaching Needs - Diabetes No Patient recieves care at the most appropriate care setting Description: Patient receives care at the most appropriate care setting. Homebound Status No Measure vital signs during every home health visit during episode of care Description: Home gas producer to measure vital signs during every home health visit during episode of care. Monitor patient's vital signs every home health visit No Understanding of when to notify MD in absence of home care staff Description: Understanding of when to notify MD in absence of home care staff Standardized Guidelines No Demonstrate use of safety precautions Description: Demonstrate use of safety precautions Safety concerns No Interventions Intervention Associated Problem/Goal Status Variance Visit Notes Instruct energy conservation Description: Instruct patient/caregiver on energy conservation strategies and use of assistive devices to minimize energy expenditure. Problem:Energy Conservation - Pneumonia Completed Instructed patient on energy conservation strategies and use of assistive devices to minimize energy expenditure. Instructed to consume smaller meals more often, balance rest with activity and no exercising after eating. Patient educated, verbalized understanding Blood glucose monitoring Description: Patient/caregiver to perform blood sugar testing and record in log. Frequency of testing per physician's request Problem:Learning/Teac matthias Needs - Diabetes Goal:Demonstrate adequate knowledge of Diabetes Completed Patient has not yet received strips to perform testing. Contact physician's office, but they are gfone for the day. Will contact tomorrow. Patrient agrees with plan Homebound Status Description: Patient is homebound due to medical condition, limited ambulation, fall risk and limited mobility as evidenced by SN evaluation. Problem:Homebound Status Goal:Patient recieves care at the most appropriate care setting Completed Patient is homebound due to medical condition, limited ambulation, fall risk and limited mobility as evidenced by SN evaluation. Monitor Vital Signs Description: Monitor blood pressure, pulse, oxygen saturation, respirations Problem:Monitor patient's vital signs every home health visit Goal:Measure vital signs during every home health visit during episode of care Scheduled Monitored blood pressure, pulse, oxygen saturation, respirations. VS WNL. .p Home Care Staff Absence Description: In absence of Home Care staff the patient should monitor status as instructed, contact physician with any abnormalities or changes in condition Problem:Standardized Guidelines Goal:Understanding of when to notify MD in absence of home care staff Completed In absence of Home Care staff the patient should monitor status as instructed, contact physician with any abnormalities or changes in condition. Patient educated, verbalized understanding Instruct Fall Prevention Description: Instruct patient/caregiver in methods to prevent falls Problem:Safety concerns Goal:Demonstrate use of safety precautions Completed Instructewd patient on methods to prevent falls. Instructed to keep pathways clear and free of clutter, to keep hallways well lit and to be cognizant of oxygen tubing. Patient educated, verbalized understanding Assess safety Description: Assess patient safety Problem:Safety concerns Goal:Demonstrate use of safety precautions Completed documented in this encounter Care Teams Nougat Candy Maker Helper Relationship Specialty Start Date End Date Noris Bob MD [address] [place] [address] PCP - General 04/14/21 Miscellaneous, Not In File 05/09/21 [place] [address] [facility] [address] [place] [address] Consulting Physician Pulmonary Disease 05/09/21 documented as of this encounter
--- OUTSIDE RECORDS SUMMARY | 2024-06-26 02:25 | XMS_ITS | Encounter Summary ---
Author Organization [facility] Address [address] [place] [address] Care Team Providers Care Life Insurance Sales Name Role Phone Noris Bob MD Primary Care Provide r Miscellaneous, Not In File Unavailable Unava ilable Johnny Salgado MD Unavailable [phone] Reason for Visit * Diagnostic Imaging (Routine) - Closed Specialty Diagnoses / Procedures Referred By Contac t Referred To Contact Diagnoses Abnormal CXR Procedures XR Chest Pa Lateral 2 Views XR Chest 1 [place] [address] [address] Phone: tel: fax: [address] [address] Referral ID Status Reason Start Date Expiration Date Visits Re quested Visits Authorized [id number] Closed 05/30/2021 06/29/2022 1 1 Encounter Details Date Type Department Care Team (Latest Contact Info) Description 05/30/2021 12:45 PM TEST LEAD APPLICATION TESTING - 05/30/2021 11:59 PM TEST LEAD APPLICATION TESTING Hospital Encounter [facility] Diagnostic Imaging [address] [place] [address] [place] [address] [place] [address] Abnormal CXR Discharge Disposition: Discharge to home or self care Social History Tobacco Use Types Packs/Day Years Used Date Smoking Tobacco: Never Smokeless Tobacco: Never Alcohol Use Standard Drinks/Week Comments No 0 (1 standard drink = 0.6 oz pur e alcohol) Comments No Sex and Gender Information Value Date Recorded Sex Assigned at Not on file Legal Sex Female 12:51 PM TEST LEAD APPLICATION TESTING Gender Identity Not on file Sexual Orientation Not on file documented as of this encounter Medications at Time of Discharge acetaminophen (Tylenol Extra Strength) 500 mg tabletIndications :Headache Disorder Take 1,000 mg by mouth every 6 (six) hours as needed for headaches. Indications: headache 05/13/2021 benzocaine-mentho L (CEPACOL) 15-3.6 mg lozenge Dissolve 1 lozenge in the mouth every 2 (two) hours as needed (Coughing) 100 lozenge 05/09/2021 benzonatate (TESSALON) 100 mg capsuleIndication s:Cough Take 1 capsule (100 mg total) by mouth 3 (three) times a day as needed for cough 30 capsule 05/09/2021 guaiFENesin-dextr omethorphan ER (MUCINEX DM) 600-30 mg tablet extended release 12 hr Take 1 tablet by mouth 2 (two) times a day 28 tablet 05/09/2021 levothyroxine (SYNTHROID) 75 mcg tablet 02/05/2021 metFORMIN (GLUCOPHAGE) 500 mg tablet Take 1 tablet (500 mg total) by mouth 2 (two) times a day with meals 60 tablet 05/09/2021 oxygenIndications :Dyspnea Administer 3-6 L/min into each nostril continuously. Indications: trouble breathing 05/12/[address] (PROTONIX) 40 mg EC tabletIndications :Stress Ulcer Prophylaxis Take 1 tablet (40 mg total) by mouth daily 30 tablet 05/10/2021 cetirizine (ZyrTEC) 10 mg tablet Take 1 tablet (10 mg total) by mouth daily 30 tablet 05/10/2021 1 documented as of this encounter Discharge Disposition Disposition Code Departure Means Destination Discharge to home or self care documented in this encounter Plan of Treatment Not on file documented as of this encounter Procedures Procedure Name Priority Date/Time Associated Diagnosis Comments XR CHEST PA LATERAL 2 VIEWS Schedule Routine, Read Routine (OP Routine) 05/30/2021 1:06 PM TEST LEAD APPLICATION TESTING Abnormal CXR documented in this encounter Results * XR Chest Pa Lateral 2 Views (05/30/2021 1:06 PM TEST LEAD APPLICATION TESTING) Anatomical Region Laterality Modality Body, Chest N/A Computed Radiogr aphy 05/30/2021 1:09 PM TEST LEAD APPLICATION TESTING Impressions 05/30/2021 1:09 PM TEST LEAD APPLICATION TESTING No active disease. Electronically signed by: Darrian Monsalve M.D. Narrative 05/30/2021 1:09 PM TEST LEAD APPLICATION TESTING EXAMINATION: XR CHEST PA LATERAL 2 VIEWS HISTORY: The patient is a 46-year-old female who presents with abdominal pain and shortness of breath. ??Comparison made with the previous study dated 05/03/2021. TECHNIQUE: PA and lateral view of the chest. FINDINGS: Lungs clear. ??Cardiovascular structures unremarkable. Procedure Note Darrian Monsalve MD - 05/30/2021 EXAMINATION: XR CHEST PA LATERAL 2 VIEWS HISTORY: The patient is a 46-year-old female who presents with abdominal pain and shortness of breath. Comparison made with the previous study dated 05/03/2021. TECHNIQUE: PA and lateral view of the chest. FINDINGS: Lungs clear. Cardiovascular structures unremarkable. IMPRESSION: No active disease. Electronically signed by: Darrian Monsalve M.D. Flavio العلي MD IMG XR PROCEDURES Final Result documented in this encounter Visit Diagnoses Diagnosis Abnormal CXR Nonspecific (abnormal) findings on radiological and other examination of lung field documented in this encounter Care Teams Life Insurance Sales Relationship Specialty Start Date End Date Noris Bob MD [address] [place] [address] PCP - General 04/14/21 Miscellaneous, Not In File 05/09/21 [place] [address] [facility] [address] [place] [address] Consulting Physician Pulmonary Disease 05/09/21 documented as of this encounter
--- OUTSIDE RECORDS SUMMARY | 2024-06-26 02:25 | XMS_ITS | Encounter Summary ---
Author Organization [facility] Address [address] [place] [address] Phone Care Team Providers Care Seismograph Computer Name Role Phone Noris Bob MD Primary Care Provide r Miscellaneous, Not In File Unavailable Unava ilable Johnny Salgado MD Unavailable [phone] Reason for Visit * Auth/Cert Specialty Diagnoses / Procedures Referred By Contac t Referred To Contact Referral ID Status Reason Start Date Expiration Date Visits Re quested Visits Authorized [id number] 1 7 Encounter Details Date Type Department Care Team (Late st Contact Info) Description 05/19/2021 Home Care Visit [facility] [address] [place] [address] Stephanie Bullard RN CASE COMMUNICATION Social History Tobacco Use Types Packs/Day Years Used Date Smoking Tobacco: Never Smokeless Tobacco: Never Alcohol Use Standard Drinks/Week Comments No 0 (1 standard drink = 0.6 oz pur e alcohol) Comments No Sex and Gender Information Value Date Recorded Sex Assigned at Not on file Legal Sex Female 12:51 PM SHAKE LOADER Gender Identity Not on file Sexual Orientation Not on file documented as of this encounter Plan of Treatment Not on file documented as of this encounter Visit Diagnoses Not on filedocumented in this encounter Additional Health Concerns Infection Onset Date Last Indicated Resolved Time COVID19 Comment:+04/08/21 Tested @ [facility] 04/08/2021 04/14/2021 05/25/2021 3:[address] documented as of this encounter Care Teams Seismograph Computer Relationship Specialty Start Date End Date Noris Bob MD [address] [place] [address] PCP - General 04/14/21 Miscellaneous, Not In File 05/09/21 [place] [address] [facility] [address] [place] [address] Consulting Physician Pulmonary Disease 05/09/21 documented as of this encounter
--- OUTSIDE RECORDS SUMMARY | 2024-06-26 02:25 | XMS_ITS | Encounter Summary ---
Author Organization [facility] Address [address] [place] [address] Phone Care Team Providers Care Security Developer Name Role Phone Noris Bob MD Primary Care Provide r Miscellaneous, Not In File Unavailable Unava ilable Johnny Salgado MD Unavailable [phone] Reason for Visit * Auth/Cert Specialty Diagnoses / Procedures Referred By Contac t Referred To Contact Referral ID Status Reason Start Date Expiration Date Visits Re quested Visits Authorized [id number] 1 7 Encounter Details Date Type Department Care Team (Late st Contact Info) Description 05/19/2021 Home Care Visit [facility] [address] [place] [phone] Anjali Bella, PT TRAVEL SCREENING CASE COMMUNICATION Social History Tobacco Use Types Packs/Day Years Used Date Smoking Tobacco: Never Smokeless Tobacco: Never Alcohol Use Standard Drinks/Week Comments No 0 (1 standard drink = 0.6 oz pur e alcohol) Comments No Sex and Gender Information Value Date Recorded Sex Assigned at Not on file Legal Sex Female 12:51 PM CONTINUOUS PROCESS ROTARY DRUM TANNER Gender Identity Not on file Sexual Orientation [...] documented as of this encounter Care Teams Security Developer Relationship Specialty Start Date End Date Noris Bob MD [address] [place] [address] PCP - General 04/14/21 Miscellaneous, Not In File 05/09/21 [place] [id number] [facility] [address] [place] [address] Consulting Physician Pulmonary Disease 05/09/21 documented as of this encounter
--- OUTSIDE RECORDS SUMMARY | 2024-06-26 02:25 | XMS_ITS | Encounter Summary ---
Author Organization [facility] Address [address] [place] [address] Phone Care Team Providers Care Law Firm Administrator Name Role Phone Noris Bob MD Primary Care Provide r Miscellaneous, Not In File Unavailable Unava ilable Johnny Salgado MD Unavailable [phone] Reason for Visit * Auth/Cert Specialty Diagnoses / Procedures Referred By Contac t Referred To Contact Referral ID Status Reason Start Date Expiration Date Visits Re quested Visits Authorized [id number] 1 7 Encounter Details Date Type Department Care Team (Late st Contact Info) Description 05/29/2021 Home Care Visit [facility] [address] [place] [address] Anjali Bella, PT TELEPHONE ENCOUNTER Social History Tobacco Use Types Packs/Day Years Used Date Smoking Tobacco: Never Smokeless Tobacco: Never Alcohol Use Standard Drinks/Week Comments No 0 (1 standard drink = 0.6 oz pur e alcohol) Comments No Sex and Gender Information Value Date Recorded Sex Assigned at Not on file 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
--- OUTSIDE RECORDS SUMMARY | 2024-06-26 02:25 | XMS_ITS | Encounter Summary ---
Author Organization [facility] Address [address] [place] [address] Phone Care Team Providers Care Conductor/Engineer Name Role Phone Noris Bob MD Primary Care Provide r Miscellaneous, Not In File Unavailable Unava ilable Johnny Salgado MD Unavailable [phone] Encounter Details Date Type Department Care Team (Late st Contact Info) Description 05/09/2021 Telephone [facility] [address] [place] [phone] Mylene Batista, RN Social History Tobacco Use Types Packs/Day Years Used Date Smoking Tobacco: Never Smokeless Tobacco: Never Alcohol Use Standard Drinks/Week Comments No 0 (1 standard drink = 0.6 oz pur e alcohol) Comments No Sex and Gender Information Value Date Recorded Sex Assigned at Not on file 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 ISITION MANAGER documented in this encounter Plan of Treatment Not on file documented as of this encounter Visit Diagnoses Not on filedocumented in this encounter Additional Health Concerns Infection Onset Date Last Indicated Resolved Time COVID19 Comment:+04/08/21 Tested @ [facility] 04/08/2021 04/14/2021 05/25/2021 3:[address] documented as of this encounter Care Teams Conductor/Engineer Relationship Specialty Start Date End Date Noris Bob MD [address] [place] [address] PCP - General 04/14/21 Miscellaneous, Not In File 05/09/21 [place] [address] [facility] [address] [place] [address] Consulting Physician Pulmonary Disease 05/09/21 documented as of this encounter
--- OUTSIDE RECORDS SUMMARY | 2024-06-26 02:25 | XMS_ITS | Encounter Summary ---
Author Organization [facility] Home Care [facility] es Address [address] [place] [address] Phone Care Team Providers Care Furniture Installer Name Role Phone Noris Bob MD Primary Care Provide r Miscellaneous, Not In File Unavailable Unava ilable Johnny Salgado MD Unavailable [phone] Reason for Visit * Auth/Cert Specialty Diagnoses / Procedures Referred By Contac t Referred To Contact Referral ID Status Reason Start Date Expiration Date Visits Re quested Visits Authorized [id number] 1 7 Encounter Details Date Type Department Care Team (Late st Contact Info) Description 06/10/2021 10:30 AM ELECTRONIC TECHNICIAN Home Care Visit [facility] [address] [place] [phone] Paz Solo PTA PT HOME VISIT Social History Tobacco Use Types Packs/Day Years Used Date Smoking Tobacco: Never Smokeless Tobacco: Never Alcohol Use Standard Drinks/Week Comments No 0 (1 standard drink = 0.6 oz pur e alcohol) Comments No Sex and Gender Information Value Date Recorded Sex Assigned at Not on file Legal Sex Female 12:51 PM ELECTRONIC TECHNICIAN Gender Identity Not on file Sexual Orientation Not on file documented as of this encounter Last Filed Vital Signs Vital Sign Reading Time Taken Comments Blood Pressure 122/80 06/10/2021 10:44 AM ELECTRONIC TECHNICIAN Pulse 82 06/10/2021 10:44 AM ELECTRONIC TECHNICIAN Temperature 36.4 ??C (97.5 ??F) 06/10/2021 10:[address] Respiratory Rate 18 06/10/2021 10:44 AM ELECTRONIC TECHNICIAN Oxygen Saturation 98% 06/10/2021 10:44 AM ELECTRONIC TECHNICIAN Inhaled Oxygen Concentration - - Weight - - Height - - Body Mass Index - - documented in this encounter Plan of Treatment Not on file documented as of this encounter Visit Diagnoses Not on filedocumented in this encounter Home Health Visit - Care Plan Visit Details Visit Type -PT Home Visit Discipline -Physical Therapy Problems Problem Description Start Date Status Goals Interve ntions Homebound Status Disciplines: Skilled Disciplines Patient's homebound status 05/13/2021 Active 1 goal linked to scheduled/documen bina intervention 1 goal intervention scheduled/documen bina in this visit Monitor patient's vital signs every home health visit Disciplines: Skilled Disciplines, Home Health Aide Monitor patient's vital signs every home health visit. 05/13/2021 Active 1 goal linked to scheduled/documen bina intervention 1 goal intervention scheduled/documen bina in this visit PT Impaired Functional Mobility/Balance Disciplines: Physical Therapy Impaired functional mobility/balance 05/15/2021 Active - 3 problem interventions scheduled/documen bina in this visit Goals Goal Associated Problem Outcome Goal Met? Visit Notes Patient recieves care at the most appropriate care setting Description: Patient receives care at the most appropriate care setting. Homebound Status No Measure vital signs during every home health visit during episode of care Description: Home credit administration specialist to measure vital signs during every home health visit during episode of care. Monitor patient's vital signs every home health visit No Interventions Intervention Associated Problem/Goal Status Variance Visit Notes Homebound Status Description: Patient is homebound due [...] home health visit during episode of care Completed Home Exercise Program (HEP) Description: Instruct patient/caregiver and perform HEP. Problem:PT Impaired Functional Mobility/Balance Completed reviewed and performed hep with patient Standing: heel/toe raises, marching, hip abd, mini squats, hip ext, hamstring curls 10-15x bilat with ue support 5x sit<>stand from kitchen chair with no ue support vc for deep breathing during ex and requires rest between ex to recover O2 and due to fatigue spo2 89-97% Gait/Stair Training Description: Instruct patient/caregiver and perform gait/stair training. Problem:PT Impaired Functional Mobility/Balance Completed amb in home with no AD 4 mins. Patient able to mirella amb with out rest. spo2 89 after amb recovering to 95 with in 1 min. patient mod sob following amb. encouraged to perform longer durations of amb when doing hep to build endurance. Balance Training/Activities Description: Instruct patient/caregiver and perform balance training activities. Problem:PT Impaired Functional Mobility/Balance Completed Tandem standing 30 sec bilat with no UE support no loss in balance min-mod swaying with sba-cga Narrow VARUN standing 30 sec with no UE support, arms crossed, eyes closed no loss in balance, min swaying documented in this encounter Home Health Visit - Actions and Narratives Narratives Pt mirella tx well, reports comp liance with hep daily. documented in this encounter Care Teams Furniture Installer Relationship Specialty Start Date End Date Noris Bob MD [address] [place] [address] PCP - General 04/14/21 Miscellaneous, Not In File 05/09/21 [place] [id number] [address] [facility] [address] [place] [address] Consulting Physician Pulmonary Disease 05/09/21 documented as of this encounter
--- OUTSIDE RECORDS SUMMARY | 2024-06-26 02:25 | XMS_ITS | Encounter Summary ---
Author Organization [facility] Address [address] [place] [address] Phone Care Team Providers Care [place] [employer] [place] Law Clerk Name Role Phone Noris Bob MD Primary Care Provide r Miscellaneous, Not In File Unavailable Unava ilable Johnny Salgado MD Unavailable [phone] Reason for Visit * Auth/Cert Specialty Diagnoses / Procedures Referred By Contac t Referred To Contact Referral ID Status Reason Start Date Expiration Date Visits Re quested Visits Authorized [id number] 1 7 Encounter Details Date Type Department Care Team (Late st Contact Info) Description 06/06/2021 Home Care Visit [facility] [address] [place] [phone] Shorty Bella PT TRAVEL SCREENING CASE COMMUNICATION Social History Tobacco Use Types Packs/Day Years Used Date Smoking Tobacco: Never Smokeless Tobacco: Never Alcohol Use Standard Drinks/Week Comments No 0 (1 standard drink = 0.6 oz pur e alcohol) Comments No Sex and Gender Information Value Date Recorded Sex Assigned at Not on file 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
--- OUTSIDE RECORDS SUMMARY | 2024-06-26 02:25 | XMS_ITS | Encounter Summary ---
Author Organization [facility] Home Care [facility] es Address [address] [place] [address] Phone Care Team Providers Care Stove Tender Name Role Phone Noris Bob MD Primary Care Provide r Miscellaneous, Not In File Unavailable Unava ilable Johnny Salgado MD Unavailable [phone] Reason for Visit * Auth/Cert Specialty Diagnoses / Procedures Referred By Contac t Referred To Contact Referral ID Status Reason Start Date Expiration Date Visits Re quested Visits Authorized [id number] 1 7 Encounter Details Date Type Department Care Team (Late st Contact Info) Description 05/15/2021 Home Care Visit [facility] [address] [place] [phone] Delano Gamble, PT TRAVEL SCREENING CASE COMMUNICATION Social History Tobacco Use Types Packs/Day Years Used Date Smoking Tobacco: Never Smokeless Tobacco: Never Alcohol Use Standard Drinks/Week Comments No 0 (1 standard drink = 0.6 oz pur e alcohol) Comments No Sex and Gender Information Value Date Recorded Sex Assigned at Not on file Legal Sex Female 12:51 PM ANALYSIS SPECIALIST Gender Identity Not on file Sexual Orientation [...] documented as of this encounter Care Teams Stove Tender Relationship Specialty Start Date End Date Noris Bob MD [address] [place] [address] PCP - General 04/14/21 Miscellaneous, Not In File 05/09/21 [place] [id number] [address] [place] [address] Consulting Physician Pulmonary Disease 05/09/21 documented as of this encounter
--- OUTSIDE RECORDS SUMMARY | 2024-06-26 02:25 | XMS_ITS | Encounter Summary ---
Author Organization [facility] Home [facility] Address [address] [place] [address] Phone Care Team Providers Care Sales Enablement Specialist Name Role Phone Noris Bob MD Primary Care Provide r Miscellaneous, Not In File Unavailable Unava ilable Johnny Salgado MD Unavailable [phone] Reason for Visit * Auth/Cert Specialty Diagnoses / Procedures Referred By Contac t Referred To Contact Referral ID Status Reason Start Date Expiration Date Visits Re quested Visits Authorized [id number] 1 7 Encounter Details Date Type Department Care Team (Late st Contact Info) Description 05/21/2021 Home Care Visit [facility] [address] [place] [phone] Paz Solo PTA CASE COMMUNICATION Social History Tobacco Use Types Packs/Day Years Used Date Smoking Tobacco: Never Smokeless Tobacco: Never Alcohol Use Standard Drinks/Week Comments No 0 (1 standard drink = 0.6 oz pur e alcohol) Comments No Sex and Gender Information Value Date Recorded Sex Assigned at Not on file 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
--- OUTSIDE RECORDS SUMMARY | 2024-06-26 02:25 | XMS_ITS | Encounter Summary ---
Author Organization [facility] Home Care [facility] es Address [address] [place] [address] Phone Care Team Providers Care Administrative Services Assistant Name Role Phone Noris Bob MD Primary Care Provide r Miscellaneous, Not In File Unavailable Unava ilable Johnny Salgado MD Unavailable [phone] Reason for Visit * Auth/Cert Specialty Diagnoses / Procedures Referred By Contac t Referred To Contact Referral ID Status Reason Start Date Expiration Date Visits Re quested Visits Authorized [id number] 1 7 Encounter Details Date Type Department Care Team (Late st Contact Info) Description 05/29/2021 Home Care Visit [facility] [address] [place] [address] Debbie Ortiz RN TELEPHONE ENCOUNTER Social History Tobacco Use Types Packs/Day Years Used Date Smoking Tobacco: Never Smokeless Tobacco: Never Alcohol Use Standard Drinks/Week Comments No 0 (1 standard drink = 0.6 oz pur e alcohol) Comments No Sex and Gender Information Value Date Recorded Sex Assigned at Not on file 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 Sex Female 12:51 PM 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
--- OUTSIDE RECORDS SUMMARY | 2024-06-26 02:25 | XMS_ITS | Encounter Summary ---
Author Organization [facility] Home [facility] Address [address] [place] [address] Phone Care Team Providers Care Footwear Production Machine Operator Name Role Phone Noris Bob MD Primary Care Provide r Miscellaneous, Not In File Unavailable Unava ilable Johnny Salgado MD Unavailable [phone] Reason for Visit * Auth/Cert Specialty Diagnoses / Procedures Referred By Contac t Referred To Contact Referral ID Status Reason Start Date Expiration Date Visits Re quested Visits Authorized [id number] 1 7 Encounter Details Date Type Department Care Team (Late st Contact Info) Description 05/23/2021 11:15 AM BLAST FURNACE KEEPER HELPER Home Care Visit [facility] [address] [place] [phone] Stephanie Bullard RN SN HOME VISIT Social History Tobacco Use Types Packs/Day Years Used Date Smoking Tobacco: Never Smokeless Tobacco: Never Alcohol Use Standard Drinks/Week Comments No 0 (1 standard drink = 0.6 oz pur e alcohol) Comments No Sex and Gender Information Value Date Recorded Sex Assigned at Not on file Legal Sex Female 12:51 PM BLAST FURNACE KEEPER HELPER Gender Identity Not on file Sexual Orientation Not on file documented as of this encounter Last Filed Vital Signs Vital Sign Reading Time Taken Comments Blood Pressure 118/70 05/23/2021 2:31 PM BLAST FURNACE KEEPER HELPER Pulse 92 05/23/2021 2:31 PM BLAST FURNACE KEEPER HELPER Temperature 36.3 ??C (97.3 ??F) 05/23/2021 2:31 PM CS T Respiratory Rate 20 05/23/2021 2:31 PM BLAST FURNACE KEEPER HELPER Oxygen Saturation 97% 05/23/2021 2:31 PM BLAST FURNACE KEEPER HELPER Inhaled Oxygen Concentration - - Weight - [...] Details Visit Type -SN Home Visit Discipline -Senior Care Problems Problem Description Start Date Status Goals Interventions Energy Conservation - Pneumonia Disciplines: Senior Care Energy Conservation related to pneumonia 1 Active - 1 problem intervention scheduled/documen bina in this visit Learning/Teaching Needs - Diabetes Disciplines: Senior Care Learning and teaching needs associated with diagnosis [...] goal intervention scheduled/documen bina in this visit [place] Precautions Disciplines: Skilled Disciplines [place] Precautions 1 Active 1 goal linked to scheduled/docume nted intervention 1 goal intervention scheduled/documen bina in this visit Goals Goal [...] visit during episode of care Description: Home general pediatrician to measure vital signs during every home [...] use of safety precautions Safety concerns No Demonstrate knowledge of universal precautions Description: Demonstrate knowledge of universal precautions [place] Precautions No Interventions Intervention Associated Problem/Goal Status Variance Visit Notes Instruct energy conservation Description: Instruct patient/caregiver on energy conservation strategies and use of assistive devices to minimize energy expenditure. Problem:Energy Conservation - Pneumonia Completed Instruct patient/caregiver on energy conservation strategies and use of assistive devices to minimize energy expenditure. Patient educated, verbalized understanding Blood glucose monitoring Description: Patient/caregiver to perform blood sugar testing and record in log. Frequency of testing per physician's request Problem:Learning/Teac matthias Needs - Diabetes Goal:Demonstrate adequate knowledge of Diabetes Patient has no strips to check her blood sugars as yet. [facility] my will bring it home tonight . Instructed to check blood sugar 2x daily and at different times when available. Instructed to check before breakfast, 2 hours after any meals and b Homebound Status Description: Patient is homebound due to medical condition, limited ambulation, fall risk and limited mobility as evidenced by SN evaluation. Problem:Homebound Status Goal:Patient recieves care at the most appropriate care setting Scheduled Patient is homebound due to medical condition, limited ambulation, fall risk and limited mobility as evidenced by SN evaluation. Monitor Vital Signs Description: Monitor blood pressure, pulse, oxygen saturation, respirations Problem:Monitor patient's vital signs every home health visit Goal:Measure vital signs during every home health visit during episode of care Completed Monitored blood pressure, pulse, oxygen saturation, respirations. [...] physician with any abnormalities or changes in condition.m Patient educated, verbalized understanding Assess safety Description: Assess patient safety Problem:Safety concerns Goal:Demonstrate use of safety precautions Completed Aspects of Care Description: Instruct patient/caregiver on universal precautions and home infection control measures Problem:[place] Precautions Goal:Demonstrate knowledge of universal precautions Completed Instructed patient/caregiver on universal precautions and home infection control measures. Patient educated, verbalized understanding- documented in this encounter Care Teams Footwear Production Machine Operator Relationship Specialty Start Date End Date Noris Bob MD [address] [place] [address] PCP - General 04/14/21 Miscellaneous, Not In File 05/09/21 [place] [address] [address] [facility] [address] [place] [address] Consulting Physician Pulmonary Disease 05/09/21 documented as of this encounter
--- OUTSIDE RECORDS SUMMARY | 2024-06-26 02:25 | XMS_ITS | Encounter Summary ---
Author Organization [facility] Home Care [facility] Address [address] [place] [address] Phone Care Team Providers Care Warehouse Helper Name Role Phone Noris Bob MD Primary Care Provide r Miscellaneous, Not In File Unavailable Unava ilable Johnny Salgado MD Unavailable [phone] Reason for Visit * Auth/Cert Specialty Diagnoses / Procedures Referred By Contac t Referred To Contact Referral ID Status Reason Start Date Expiration Date Visits Re quested Visits Authorized [id number] 1 7 Encounter Details Date Type Department Care Team (Late st Contact Info) Description 05/20/2021 Home Care Visit [facility] [address] [place] [address] Stephanie Bullard ROOF BOLTER SCREENING CASE COMMUNICATION Social History Tobacco Use Types Packs/Day Years Used Date Smoking Tobacco: Never Smokeless Tobacco: Never Alcohol Use Standard Drinks/Week Comments No 0 (1 standard drink = 0.6 oz pur e alcohol) Comments No Sex and Gender Information Value Date Recorded Sex Assigned at Not on file Legal Sex Female 12:51 PM MC KAY MACHINE OPERATOR Gender Identity Not on file [...] documented as of this encounter Care Teams Warehouse Helper Relationship Specialty Start Date End Date Noris Bob MD [address] [place] [address] PCP - General 04/14/21 Miscellaneous, Not In File 05/09/21 [place] [id number] [address] [facility] [address] [place] [address] Consulting Physician Pulmonary Disease 05/09/21 documented as of this encounter
--- OUTSIDE RECORDS SUMMARY | 2024-06-26 02:25 | XMS_ITS | Encounter Summary ---
Author Organization [facility] Home Care Servic es Address [address] [place] [address] Phone Care Team Providers Care Car Barn Laborer Name Role Phone Noris Bob MD Primary Care Provide r Miscellaneous, Not In File Unavailable Unava ilable Johnny Salgado MD Unavailable [phone] Reason for Visit * Auth/Cert Specialty Diagnoses / Procedures Referred By Contac t Referred To Contact Referral ID Status Reason Start Date Expiration Date Visits Re quested Visits Authorized [id number] 1 7 Encounter Details Date Type Department Care Team (Latest Contact Info) Description 06/24/2021 12:00 PM ROTARY SWAGING MACHINE OPERATOR Home Care Visit [facility] [address] [place] [id number] Anjali Bella, PT PT NON OASIS DISCHARGE Social History Tobacco Use Types Packs/Day Years Used Date Smoking Tobacco: Never Smokeless Tobacco: Never Alcohol Use Standard Drinks/Week Comments No 0 (1 standard drink = 0.6 oz pur e alcohol) Comments No Sex and Gender Information Value Date Recorded Sex Assigned at Not on file Legal Sex Female 12:51 PM ROTARY SWAGING MACHINE OPERATOR Gender Identity Not on file Sexual Orientation Not on file documented as of this encounter Last Filed Vital Signs Vital Sign Reading Time Taken Comments Blood Pressure 140/70 06/24/2021 12:19 PM ROTARY SWAGING MACHINE OPERATOR Pulse 94 06/24/2021 12:19 PM ROTARY SWAGING MACHINE OPERATOR Temperature 36.2 ??C (97.1 ??F) 06/24/2021 12:[address] Respiratory Rate 18 06/24/2021 12:19 PM ROTARY SWAGING MACHINE OPERATOR Oxygen Saturation 97% 06/24/2021 12:19 PM ROTARY SWAGING MACHINE OPERATOR Inhaled Oxygen Concentration - - Weight - - Height - - Body Mass Index - - documented in this encounter Plan of Treatment Not on file documented as of this encounter Visit Diagnoses Not on filedocumented in this encounter Home Health Visit - Care Plan Visit Details Visit Type -PT Non-OASIS Dis charge Discipline -Physical Therapy Problems Problem Description Start Date Status Goals Interventions Homebound Status Disciplines: Skilled Disciplines Patient's homebound status 1 Resolved on 06/24/2021 1 goal linked to scheduled/documen bina intervention 1 goal intervention scheduled/documen bina in this visit Medications Disciplines: Skilled Disciplines Management of home medications 1 Resolved on 06/24/2021 1 goal linked to scheduled/documen bina intervention Oxygen Disciplines: Skilled Disciplines Oxygen instruction and safety 1 Resolved on 06/24/2021 1 goal linked to scheduled/documen bina intervention Monitor patient's vital signs every home health visit Disciplines: Skilled Disciplines, Home Health Aide Monitor patient's vital signs every home health visit. 1 Resolved on 06/24/2021 1 goal linked to scheduled/documen bina intervention 1 goal intervention scheduled/documen bina in this visit Infection Prevention Disciplines: Skilled Disciplines Infection Prevention 1 Resolved on 06/24/2021 1 goal linked to scheduled/documen bina intervention Standardized Guidelines Disciplines: Skilled Disciplines Standardized Guidelines 1 Resolved on 06/24/2021 1 goal linked to scheduled/documen bina intervention Safety concerns Disciplines: Skilled Disciplines Alteration in safety 1 Resolved on 06/24/2021 1 goal linked to scheduled/documen bina intervention 1 goal intervention scheduled/documen bina in this visit Stephens Precautions Disciplines: Skilled Disciplines Stephens Precautions 1 Resolved on 06/24/2021 1 goal linked to scheduled/documen bina intervention Pain Disciplines: Core Disciplines Alteration in comfort 1 Resolved on 06/24/2021 1 goal linked to scheduled/documen bina intervention PT Impaired Functional Mobility/Balance Disciplines: Physical Therapy Impaired functional mobility/balance 1 Resolved on 06/24/2021 4 goals linked to scheduled/documen bina interventions 4 problem interventions scheduled/documen bina in this visit Goals Goal Associated Problem Outcome Goal Met? Visit Notes Patient recieves care at the most appropriate care setting Description: Patient receives care at the most appropriate care setting. Homebound Status Completed Yes Understand and follow medication therapy Description: Patient/caregiver will understand and follow prescribed medication therapy as evidence by having up to date medication list in home & ability to verbalize purpose, schedule, and side effects by the end of the episode of care Medications Completed Yes Demonstrate safe oxygen usage Description: Patient/caregiver to verbalize and demonstrate safe oxygen usage by end of episode of care Oxygen Completed Yes Measure vital signs during every home health visit during episode of care Description: Home product safety tester to measure vital signs during every home health visit during episode of care. Monitor patient's vital signs every home health visit Completed Yes Verbalize signs of infection Description: Verbalize signs of infection Infection Prevention Completed Yes Understanding of when to notify MD in absence of home care staff Description: Understanding of when to notify MD in absence of home care staff Standardized Guidelines Completed Yes Demonstrate use of safety precautions Description: Demonstrate use of safety precautions Safety concerns Completed Yes Demonstrate knowledge of universal precautions Description: Demonstrate knowledge of universal precautions Stephens Precautions Completed Yes Report that pain has been reduced or controlled Description: Report that pain has been reduced or controlled Pain Completed Yes Improvement with Transfers Description: Patient able to perform all transfers independently by discharge. - met PT Impaired Functional Mobility/Balance Completed Yes Improvement in Gait/Stair Training Description: Patient will ambulate 250 feet in home without a device by discharge. - met 06/24/21 Patient will negotiate several steps using a handrail and no assistance out of home to access transportation/community activities by discharge. - met 06/24/21 PT Impaired Functional Mobility/Balance Completed Yes Improvement with balance Description: Improve TYRELL/Tinetti score to 26/28 by therapy discharge. - 27/28 on 06/24/21, met Improve the TUG from 14.5 to 10.0 by discharge. - 11 sec on 06/24/21, improved PT Impaired Functional Mobility/Balance Completed Yes Performance with HEP Description: Patient/caregiver to be independent with progressed HEP by therapy discharge. PT Impaired Functional Mobility/Balance Completed Yes Interventions Intervention Associated Problem/Goal Status Variance Visit Notes Homebound Status Description: Patient is homebound due to medical condition, limited ambulation, fall risk and limited mobility as evidenced by SN evaluation. Problem:Homebound Status Goal:Patient recieves care at the most appropriate care setting Completed Patient is homebound due to use of supplemental oxygen Monitor Vital Signs Description: Monitor blood pressure, pulse, oxygen saturation, respirations Problem:Monitor patient's vital signs every home health visit Goal:Measure vital signs during every home health visit during episode of care Completed Assess safety Description: Assess patient safety Problem:Safety concerns Goal:Demonstrate use of safety precautions Completed Transfer training Description: Instruct patient/caregiver and perform transfer training. Problem:PT Impaired Functional Mobility/Balance Completed See PT assessment Home Exercise Program (HEP) Description: Instruct patient/caregiver and perform HEP. Problem:PT Impaired Functional Mobility/Balance Completed See PT assessment Gait/Stair Training Description: Instruct patient/caregiver and perform gait/stair training. Problem:PT Impaired Functional Mobility/Balance Completed See PT assessment Balance Training/Activities Description: Instruct patient/caregiver and perform balance training activities. 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 Pt has made significant improvements in activity tolerance and aerobic capacity with services. Pt reports that she no longer needs supplemental oxygen throughout the day. She mainly takes a portable unit with her in case her oxygen drops while ambulating stairs to get out of the house or when ambulating longer distances to get to places like doctors offices. Pt reports ambulating her apartment steps with one standing rest break on room air. Pt also reports walking over 250' to get to doctors office on room air. Pt unable to demonstrate today due to environmental limitations (no room in home due to clutter, and rain outside). Pt improved balance to low fall risk category via Tinetti test. TUG score is within normal limits. Pt also performs 45 steps during 2 MST this date on room air. Oxygen saturation dropped to 85% after 1.5 minutes and pt instructed to stop stepping in order to increase oxygen saturation. Pt denies symptoms of lightheadedness or dizziness. Pt previously unable to perform this test without supplemental oxygen. - Pt being discharged from services this date to indep with HEP (walking program and marching) due to improvement or completion of all goals. Pt and family agree with this POC decision and have no further questions. Narratives Improve TYRELL/Tinetti score t o 26/28 by therapy discharge. - on 06/24/21, met Improve the TUG from 14.5 to 10.0 by discharge. - 11 sec on 06/24/21, improved Patient will ambulate 250 feet in home without a device by discharge. - met 06/24/21 Patient will negotiate several steps using a handrail and no assistance out of home to access transportation/community activities by discharge. - met 06/24/21 Patient able to perform all transfers independently by discharge. - met Patient/caregiver to be independent with progressed HEP by therapy discharge. - met documented in this encounter Care Teams Car Barn Laborer Relationship Specialty Start Date End Date Noris Bob MD [address] [place] [address] PCP - General 04/14/21 Miscellaneous, Not In File 05/09/21 [place] [id number] [facility] [address] [place] [address] Consulting Physician Pulmonary Disease 05/09/21 documented as of this encounter
--- OUTSIDE RECORDS SUMMARY | 2024-06-26 02:25 | XMS_ITS | Encounter Summary ---
Author Organization [facility] Home Care Servic es Address [address] [place] [address] Phone Care Team Providers Care Justice Of The Peace Name Role Phone Noris Bob MD Primary Care Provide r Miscellaneous, Not In File Unavailable Unava ilable Johnny Salgado MD Unavailable [phone] Reason for Visit * Auth/Cert Specialty Diagnoses / Procedures Referred By Contac t Referred To Contact Referral ID Status Reason Start Date Expiration Date Visits Re quested Visits Authorized [id number] 1 7 Encounter Details Date Type Department Care Team (Late st Contact Info) Description 06/10/2021 Home Care Visit [facility] [address] [place] [address] Paz Solo PTA TRAVEL SCREENING CASE COMMUNICATION Social History Tobacco Use Types Packs/Day Years Used Date Smoking Tobacco: Never Smokeless Tobacco: Never Alcohol Use Standard Drinks/Week Comments No 0 (1 standard drink = 0.6 oz pur e alcohol) Comments No Sex and Gender Information Value Date Recorded Sex Assigned at Not on file Legal Sex Female 12:51 PM SENIOR GRADUATE ADVISOR Gender Identity Not on file Sexual Orientation Not on file documented as of this encounter Plan of Treatment Not on file documented as of this encounter Visit Diagnoses Not on filedocumented in this encounter Care Teams Justice Of The Peace Relationship Specialty Start Date End Date Noris Bob MD [facility] [place] [address] [place] [address] PCP - General 04/14/21 Miscellaneous, Not In File 05/09/21 [place] [id number] [address] [facility] [address] [place] [address] Consulting Physician Pulmonary Disease 05/09/21 documented as of this encounter
--- OUTSIDE RECORDS SUMMARY | 2024-06-26 02:25 | XMS_ITS | Encounter Summary ---
Author Organization [facility] Home Care Servic es Address [address] [place] [address] Phone Care Team Providers Care Wastewater Engineer Name Role Phone Noris Bob MD Primary Care Provide r Miscellaneous, Not In File Unavailable Unava ilable Johnny Salgado MD Unavailable Reason for Visit * Auth/Cert Specialty Diagnoses / Procedures Referred By Contac t Referred To Contact Referral ID Status Reason Start Date Expiration Date Visits Re quested Visits Authorized [id number] 1 7 Encounter Details Date Type Department Care Team (Late st Contact Info) Description 05/13/2021 Home Care Visit [facility] [address] [place] [address] Stephanie Bullard RN SBAR-START OF CARE/RESUMPTION Social History Tobacco Use Types Packs/Day Years Used Date Smoking Tobacco: Never Smokeless Tobacco: Never Alcohol Use Standard Drinks/Week Comments No 0 (1 standard drink = 0.6 oz pur e alcohol) Comments No Sex and Gender Information Value Date Recorded Sex Assigned at Not on file Legal Sex Female 12:51 PM TOWBOAT ENGINEER Gender Identity Not on file Sexual Orientation [...] documented as of this encounter Care Teams Wastewater Engineer Relationship Specialty Start Date End Date Noris Bob MD [address] [place] [address] PCP - General 04/14/21 Miscellaneous, Not In File 05/09/21 [place] [id number] [address] [facility] [address] [place] [address] Consulting Physician Pulmonary Disease 05/09/21 documented as of this encounter
--- OUTSIDE RECORDS SUMMARY | 2024-06-26 02:25 | XMS_ITS | Encounter Summary ---
Author Organization [facility] Home Care Servic es Address [address] [place] [address] Phone Care Team Providers Care Boot Turner Name Role Phone Noris Bob MD Primary Care Provide r Miscellaneous, Not In File Unavailable Unava ilable Johnny Salgado MD Unavailable [phone] Reason for Visit * Auth/Cert Specialty Diagnoses / Procedures Referred By Contac t Referred To Contact Referral ID Status Reason Start Date Expiration Date Visits Re quested Visits Authorized [id number] 1 7 Encounter Details Date Type Department Care Team (Late st Contact Info) Description 06/18/2021 Home Care Visit [facility] [address] [place] [address] Paz Solo PTA TRAVEL SCREENING CASE COMMUNICATION Social History Tobacco Use Types Packs/Day Years Used Date Smoking Tobacco: Never Smokeless Tobacco: Never Alcohol Use Standard Drinks/Week Comments No 0 (1 standard drink = 0.6 oz pur e alcohol) Comments No Sex and Gender Information Value Date Recorded Sex Assigned at Not on file Legal Sex Female 12:51 PM DINNER COOK Gender Identity Not on file Sexual Orientation Not on file documented as of this encounter Plan of Treatment Not on file documented as of this encounter Visit Diagnoses Not on filedocumented in this encounter Care Teams Boot Turner Relationship Specialty Start Date End Date Noris Bob MD [facility] [place] [address] PCP - General 04/14/21 Miscellaneous, Not In File 05/09/21 [place] [id number] [address] [facility] [address] [place] [address] Consulting Physician Pulmonary Disease 05/09/21 documented as of this encounter
--- OUTSIDE RECORDS SUMMARY | 2024-06-26 02:25 | XMS_ITS | Encounter Summary ---
Author Organization [facility] Home Care Servic es Address [address] [place] [address] Phone Care Team Providers Care Restorative Coordinator Name Role Phone Noris Bob MD Primary Care Provide r Miscellaneous, Not In File Unavailable Unava ilable Johnny Salgado MD Unavailable [phone] Reason for Visit * Auth/Cert Specialty Diagnoses / Procedures Referred By Contac t Referred To Contact Referral ID Status Reason Start Date Expiration Date Visits Re quested Visits Authorized [id number] 1 7 Encounter Details Date Type Department Care Team (Late st Contact Info) Description 05/23/2021 Home Care Visit [facility] [address] [place] [address] Stephanie Bullard CERTIFIED VETERINARY TECHNICIAN SCREENING CASE COMMUNICATION Social History Tobacco Use Types Packs/Day Years Used Date Smoking Tobacco: Never Smokeless Tobacco: Never Alcohol Use Standard Drinks/Week Comments No 0 (1 standard drink = 0.6 oz pur e alcohol) Comments No Sex and Gender Information Value Date Recorded Sex Assigned at Not on file Legal Sex Female 12:51 PM MOBILE WEB APPLICATION DEVELOPER Gender Identity Not on file Sexual Orientation [...] documented as of this encounter Care Teams Restorative Coordinator Relationship Specialty Start Date End Date Noris Bob MD [address] [place] [address] PCP - General 04/14/21 Miscellaneous, Not In File 05/09/21 [place] [id number] [address] [facility] [address] [place] [address] Consulting Physician Pulmonary Disease 05/09/21 documented as of this encounter
--- OUTSIDE RECORDS SUMMARY | 2024-06-26 02:25 | XMS_ITS | Encounter Summary ---
Author Organization [facility] Home Care Servic es Address [address] [place] [address] Phone Care Team Providers Care Sandal Parts Assembler Name Role Phone Noris Bob MD Primary Care Provide r Miscellaneous, Not In File Unavailable Unava ilable Johnny Salgado MD Unavailable [phone] Reason for Visit * Auth/Cert Specialty Diagnoses / Procedures Referred By Contac t Referred To Contact Referral ID Status Reason Start Date Expiration Date Visits Re quested Visits Authorized [id number] 1 7 Encounter Details Date Type Department Care Team (Late st Contact Info) Description 06/18/2021 9:30 AM ESCORT BLIND Home Care Visit [facility] [address] [place] [id number] Paz Solo PTA PT HOME VISIT Social History Tobacco Use Types Packs/Day Years Used Date Smoking Tobacco: Never Smokeless Tobacco: Never Alcohol Use Standard Drinks/Week Comments No 0 (1 standard drink = 0.6 oz pur e alcohol) Comments No Sex and Gender Information Value Date Recorded Sex Assigned at Not on file Legal Sex Female 12:51 PM ESCORT BLIND Gender Identity Not on file Sexual Orientation Not on file documented as of this encounter Last Filed Vital Signs Vital Sign Reading Time Taken Comments Blood Pressure 135/88 06/18/2021 9:31 AM ESCORT BLIND Pulse 92 06/18/2021 9:31 AM ESCORT BLIND Temperature 36.6 ??C (97.9 ??F) 06/18/2021 9:31 AM CS T Respiratory Rate 20 06/18/2021 9:31 AM ESCORT BLIND Oxygen Saturation 92% 06/18/2021 9:31 AM ESCORT BLIND Inhaled Oxygen Concentration - - Weight - [...] visit during episode of care Description: Home cushion cover inspector to measure vital signs during every home [...] health visit during episode of care Completed vitals wnl Home Exercise Program (HEP) Description: Instruct patient/caregiver and perform HEP. Problem:PT Impaired Functional Mobility/Balance Completed Gait/Stair Training Description: Instruct patient/caregiver and perform gait/stair training. Problem:PT Impaired Functional Mobility/Balance Completed ascend/descend steps to enter/exit apartment building. patient negotiages step over step with railing and other ue on wall. Patient stands and rests on landing to recover breathing. no O2 spo2 89 recovering to mid 90's within 1 min Balance Training/Activities Description: Instruct patient/caregiver and perform balance training activities. Problem:PT Impaired Functional Mobility/Balance Completed single leg standing bilat 30 sec with min ue support [id number], no loss in balance min-mod swaying Tandem standing 30 sec bilat with no UE support no loss in balance mod swaying with cga-sba documented in this encounter Home Health Visit - Actions and Narratives Narratives patient cleared to go back t o work next week from doc and patient plans to return to work. Reports compliance with hep and weaning off O2, Still requires O2 at times on 1L or.5L with exertion documented in this encounter Care Teams Sandal Parts Assembler Relationship Specialty Start Date End Date Noris Bob MD [address] [place] [address] PCP - General 04/14/21 Miscellaneous, Not In File 05/09/21 [place] [id number] [address] [facility] [address] [place] [address] Consulting Physician Pulmonary Disease 05/09/21 documented as of this encounter
--- OUTSIDE RECORDS SUMMARY | 2024-06-26 02:25 | XMS_ITS | Encounter Summary ---
Author Organization [facility] Address [address] [place] [address] Phone Care Team Providers Care Valve Repairer Reclamation Name Role Phone Noris Bob MD Primary Care Provide r Miscellaneous, Not In File Unavailable Unava ilable Johnny Salgado MD Unavailable [phone] Reason for Visit * Auth/Cert Specialty Diagnoses / Procedures Referred By Contac t Referred To Contact Referral ID Status Reason Start Date Expiration Date Visits Re quested Visits Authorized [id number] 1 7 Encounter Details Date Type Department Care Team (Late st Contact Info) Description 05/19/2021 12:45 PM SUPERVISOR INVENTORY MERCHANDISING Home Care Visit [facility] [address] [place] [id number] Anjali Bella, PT PT HOME VISIT Social History Tobacco Use Types Packs/Day Years Used Date Smoking Tobacco: Never Smokeless Tobacco: Never Alcohol Use Standard Drinks/Week Comments No 0 (1 standard drink = 0.6 oz pur e alcohol) Comments No Sex and Gender Information Value Date Recorded Sex Assigned at Not on file 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INVENTORY MERCHANDISING Gender Identity Not on file Sexual Orientation Not on file documented as of this encounter Last Filed Vital Signs Vital Sign Reading Time Taken Comments Blood Pressure 110/70 05/19/2021 1:02 PM SUPERVISOR INVENTORY MERCHANDISING Pulse 93 05/19/2021 1:02 PM SUPERVISOR INVENTORY MERCHANDISING Temperature 36.2 ??C (97.2 ??F) 05/19/2021 1:02 PM CS T Respiratory Rate 19 05/19/2021 1:02 PM SUPERVISOR INVENTORY MERCHANDISING Oxygen Saturation 97% 05/19/2021 1:02 PM SUPERVISOR INVENTORY MERCHANDISING Inhaled Oxygen Concentration - - Weight - [...] Therapy Impaired functional mobility/balance 05/15/2021 Active - 2 problem interventions scheduled/documen bina in this visit Goals Goal Associated Problem Outcome Goal Met? Visit Notes Patient recieves care at the most appropriate care setting Description: Patient receives care at the most appropriate care setting. Homebound Status No Measure vital signs during every home health visit during episode of care Description: Home offline cutter to measure vital signs during every home [...] setting Completed Patient is homebound due to SOB, impaired endurance Monitor Vital Signs Description: Monitor blood pressure, pulse, oxygen saturation, respirations Problem:Monitor patient's vital signs every home health visit Goal:Measure vital signs during every home health visit during episode of care Completed Home Exercise Program (HEP) Description: Instruct patient/caregiver and perform HEP. Problem:PT Impaired Functional Mobility/Balance Completed Pt has no questions about her HEP Gait/Stair Training Description: Instruct patient/caregiver and perform gait/stair training. Problem:PT Impaired Functional Mobility/Balance Completed 2MST: 36 steps, HR up to 120, O2 down to 86% on 2L O2, two standing breaks and one seated break; pt requires about 2 minutes to recover to above 90% O2 and HR below 100 and quiet breathing Pt instructed to begin marching for 30 seconds at a time for HEP; also instructed to obtain a pulse oximeter to help pt monitor oxygen levels during exercise as well as progress pt makes; pt educated on parameters for SPO2 and HR Pt has 17 steps to enter and exit apartment building; pt has not performed since coming home; not attempted today due to fatigue Pt instructed in use of incentive spirometer today; pt unable to take breath in without dry cough; pt does not have an inhaler; pt instructed to perform 5x every hour to help with inspiration documented in this encounter Home Health Visit - Actions and Narratives Actions During today's visit reviewe d HEP. Pt states that she has no questions about HEP. She reports that she has been performing the exercises as completely as she can, though sometimes she cannot get through all of them. Pt educated on muscle strength and improved oxygen efficiency within her muscle cells to encourage pt that as her muscles get stronger, her SOB should improve as well. Reviewed incentive spirometer - educated pt on correct use of incentive spirometer, unable to breath in using spirometer without causing a dry cough. Pt not able to acheive 1000mL today. Pt instructed to add to HEP at least 5x every hour. Pt also performed 2 MST today. Pt complains half way through test that legs feel heavy which may be sign of poor oxygen distribution to LE musculature. Score was low for age related norms and pt SPO2 dropped to 86% with 2L of supplemental oxygen while pt was recovering from test. House is cluttered increasing fall risk. - Pt would benefit from continued skilled PT to improve aerobic endurance, leg strength, and stair ambulation. documented in this encounter Care Teams Valve Repairer Reclamation Relationship Specialty Start Date End Date Noris Bob MD [address] [place] [address] PCP - General 10/18/21 Miscellaneous, Not In File 05/09/21 [place] [id number] [facility] [address] [place] [address] Consulting Physician Pulmonary Disease 05/09/21 documented as of this encounter
--- OUTSIDE RECORDS SUMMARY | 2024-06-26 02:25 | XMS_ITS | Encounter Summary ---
Author Organization [facility] Home Care [facility] es Address [address] [place] [address] Phone Care Team Providers Care Registered Nurse First Assistant Name Role Phone Noris Bob MD Primary Care Provide r Miscellaneous, Not In File Unavailable Unava ilable Johnny Salgado MD Unavailable [phone] Reason for Visit * Auth/Cert Specialty Diagnoses / Procedures Referred By Contac t Referred To Contact Referral ID Status Reason Start Date Expiration Date Visits Re quested Visits Authorized [id number] 1 7 Encounter Details Date Type Department Care Team (Latest Contact Info) Description 05/15/2021 3:30 PM LOCKMAKER Home Care Visit [facility] [address] [place] [phone] Delano Gamble, PT PT INITIAL EVALUATION Social History Tobacco Use Types Packs/Day Years Used Date Smoking Tobacco: Never Smokeless Tobacco: Never Alcohol Use Standard Drinks/Week Comments No 0 (1 standard drink = 0.6 oz pur e alcohol) Comments No Sex and Gender Information Value Date Recorded Sex Assigned at Not on file Legal Sex Female 12:51 PM LOCKMAKER Gender Identity Not on file Sexual Orientation Not on file documented as of this encounter Last Filed Vital Signs Vital Sign Reading Time Taken Comments Blood Pressure 140/80 05/15/2021 3:30 PM LOCKMAKER Pulse 102 05/15/2021 3:30 PM LOCKMAKER Temperature 36.2 ??C (97.2 ??F) 05/15/2021 3:30 PM CS T Respiratory Rate 20 05/15/2021 3:30 PM LOCKMAKER Oxygen Saturation 97% 05/15/2021 3:30 PM LOCKMAKER Inhaled Oxygen Concentration - - Weight - [...] Care Plan Visit Details Visit Type -PT Initial Evalu ation Discipline -Physical Therapy Problems Problem Description Start [...] goal intervention scheduled/documen bina in this visit [place] Precautions Disciplines: Skilled Disciplines [place] Precautions 05/13/2021 Active 1 goal linked to scheduled/documen [...] visit during episode of care Description: Home body bumper to measure vital signs during every home health visit during episode of care. Monitor patient's vital signs every home health visit No Demonstrate knowledge of universal precautions Description: Demonstrate knowledge of universal precautions [place] Precautions No Interventions Intervention Associated Problem/Goal Status Variance Visit Notes Homebound Status Description: Patient is homebound due to medical condition, limited ambulation, fall risk and limited mobility as evidenced by SN evaluation. Problem:Homebound Status Goal:Patient recieves care at the most appropriate care setting Completed PATIENT NEEDS ASSISTANCE OF ANOTHER PERSON ON STEPS TO LEAVE THE HOME DUE TO WEAKNESS IN THE LOWER EXTREMTIIES. Monitor Vital Signs Description: Monitor blood pressure, pulse, oxygen saturation, respirations Problem:Monitor patient's vital signs every home health visit Goal:Measure vital signs during every home health visit during episode of care Completed Aspects of Care Description: Instruct patient/caregiver on universal precautions and home infection control measures Problem:[place] Precautions Goal:Demonstrate knowledge of universal precautions Completed Transfer training Description: Instruct patient/caregiver and perform transfer training. Problem:PT Impaired Functional Mobility/Balance Completed PATIENT HAS A GOOD UNDERSTANDING OF TRANSFERS. Home Exercise Program (HEP) Description: Instruct patient/caregiver and perform HEP. Problem:PT Impaired Functional Mobility/Balance Completed PATIENT HAS A FAIR UNDERSTANDING OF HOME EXERCISES. Gait/Stair Training Description: Instruct patient/caregiver and perform gait/stair training. Problem:PT Impaired Functional Mobility/Balance Completed PATIENT HAS A GOOD UNDERSTANDING OF AMBULATION. documented in this encounter Home Health Visit - Actions and Narratives Actions PATIENT TRANSFERS TO STAND F ROM SEATED USING THE UPPER EXTREMITIES. AMBULATING INDOORS WITHOUT A DEVICE 75-100 FEET WITH FATGUE AND MILD SOB. PATIENT PERFORMED THE FOLLOWING EXERCISES STANDING WITH THE SUPPORT OF A CHAIR 10 REPS BOTH SIDES FOR TOE RAISES, SMALL SQUATS, KNEE FLEXION, HIP FLEXION, HIP ABDUCTION AND HIP EXTENSION. PATIENT NEEDED FREQUENT BREAKS DUE TO SHORTNESS OF BREATH. PATIENT IS WEAKNESS AND NEEDS ASSISTANCE OF ANOTHER PERSON ON STEPS TO LEAVE THE HOME. PATIENT WILL BE SEEN 1WK FOR 1 WEEK THAN 1-2 TIMES A WEEK FOR 3 WEEKS. documented in this encounter Care Teams Registered Nurse First Assistant Relationship Specialty Start Date End Date Noris Bob MD [address] [place] [address] PCP - General 04/14/21 Miscellaneous, Not In File 05/09/21 [place] [id number] [facility] [address] [place] [address] Consulting Physician Pulmonary Disease 05/09/21 documented as of this encounter
--- OUTSIDE RECORDS SUMMARY | 2024-06-26 02:25 | XMS_ITS | Encounter Summary ---
Author Organization [facility] Home Care [facility] Address [address] [place] [address] Phone Care Team Providers Care Career Developer Name Role Phone Noris Bob MD Primary Care Provide r Miscellaneous, Not In File Unavailable Unava ilable Johnny Salgado MD Unavailable [phone] Reason for Visit * Auth/Cert Specialty Diagnoses / Procedures Referred By Contac t Referred To Contact Referral ID Status Reason Start Date Expiration Date Visits Re quested Visits Authorized [id number] 1 7 Encounter Details Date Type Department Care Team (Late st Contact Info) Description 05/15/2021 Home Care Visit [facility] [address] [place] [address] Stephanie Bullard RN CASE COMMUNICATION Social History Tobacco Use Types Packs/Day Years Used Date Smoking Tobacco: Never Smokeless Tobacco: Never Alcohol Use Standard Drinks/Week Comments No 0 (1 standard drink = 0.6 oz pur e alcohol) Comments No Sex and Gender Information Value Date Recorded Sex Assigned at Not on file Legal Sex Female 12:51 PM GEAR TESTER Gender Identity Not on file Sexual Orientation [...] documented as of this encounter Care Teams Career Developer Relationship Specialty Start Date End Date Noris Bob MD [address] [place] [address] PCP - General 04/14/21 Miscellaneous, Not In File 05/09/21 [place] [id number] [facility] [address] [place] [address] Consulting Physician Pulmonary Disease 05/09/21 documented as of this encounter
--- OUTSIDE RECORDS SUMMARY | 2024-06-26 02:25 | XMS_ITS | Encounter Summary ---
Author Organization [facility] Home [facility] Address [address] [place] [address] Phone Care Team Providers Care Communications Supervisor Name Role Phone Noris Bob MD Primary Care Provide r Miscellaneous, Not In File Unavailable Unava ilable Johnny Salgado MD Unavailable [phone] Reason for Visit * Auth/Cert Specialty Diagnoses / Procedures Referred By Contac t Referred To Contact Referral ID Status Reason Start Date Expiration Date Visits Re quested Visits Authorized [id number] 1 7 Encounter Details Date Type Department Care Team (Late st Contact Info) Description 05/13/2021 Home Care Visit [facility] [address] [place] [address] Stephanie Bullard DIRECTOR OF ENGINEERING SCREENING CASE COMMUNICATION Social History Tobacco Use Types Packs/Day Years Used Date Smoking Tobacco: Never Smokeless Tobacco: Never Alcohol Use Standard Drinks/Week Comments No 0 (1 standard drink = 0.6 oz pur e alcohol) Comments No Sex and Gender Information Value Date Recorded Sex Assigned at Not on file Legal Sex Female 12:51 PM TRAPEZE ARTIST Gender Identity Not on file Sexual Orientation [...] documented as of this encounter Care Teams Communications Supervisor Relationship Specialty Start Date End Date Noris Bob MD [address] [place] [address] PCP - General 04/14/21 Miscellaneous, Not In File 05/09/21 [place] [id number] [facility] [address] [place] [address] Consulting Physician Pulmonary Disease 05/09/21 documented as of this encounter
--- OUTSIDE RECORDS SUMMARY | 2024-06-26 02:25 | XMS_ITS | Encounter Summary ---
Author Organization [facility] Home [facility] Address [address] [place] [address] Phone Care Team Providers Care Color Expert Name Role Phone Noris Bob MD Primary Care Provide r Miscellaneous, Not In File Unavailable Unava ilable Johnny Salgado MD Unavailable [phone] Reason for Visit * Auth/Cert Specialty Diagnoses / Procedures Referred By Contac t Referred To Contact Referral ID Status Reason Start Date Expiration Date Visits Re quested Visits Authorized [id number] 1 7 Encounter Details Date Type Department Care Team (Late st Contact Info) Description 06/06/2021 Home Care Visit [facility] [address] [place] [address] Shorty Bella, PT TELEPHONE ENCOUNTER Social History Tobacco Use Types Packs/Day Years Used Date Smoking Tobacco: Never Smokeless Tobacco: Never Alcohol Use Standard Drinks/Week Comments No 0 (1 standard drink = 0.6 oz pur e alcohol) Comments No Sex and Gender Information Value Date Recorded Sex Assigned at Not on file Legal Sex Female 12:51 PM WARRANT CLERK Gender Identity Not on file Sexual Orientation Not on file documented as of this encounter Plan of Treatment Not on file documented as of this encounter Visit Diagnoses Not on filedocumented in this encounter Care Teams Color Expert Relationship Specialty Start Date End Date Noris Bob MD [address] [place] [address] PCP - General 04/14/21 Miscellaneous, Not In File 05/09/21 [place] [id number] [facility] [address] [place] [address] Consulting Physician Pulmonary Disease 05/09/21 documented as of this encounter
--- OUTSIDE RECORDS SUMMARY | 2024-06-26 02:25 | XMS_ITS | Encounter Summary ---
Author Organization [facility] Home [facility] Address [address] [place] [address] Phone Care Team Providers Care Learning Center Coordinator Name Role Phone Noris Bob MD Primary Care Provide r Miscellaneous, Not In File Unavailable Unava ilable Johnny Salgado MD Unavailable [phone] Reason for Visit * Auth/Cert Specialty Diagnoses / Procedures Referred By Contac t Referred To Contact Referral ID Status Reason Start Date Expiration Date Visits Re quested Visits Authorized [id number] 1 7 Encounter Details Date Type Department Care Team (Latest Contact Info) Description 05/13/2021 11:00 AM MICA BUILDER Home Care Visit [facility] [address] [place] [phone] Stephanie Bullard RN SN NON OASIS START OF CARE Social History Tobacco Use Types Packs/Day Years Used Date Smoking Tobacco: Never Smokeless Tobacco: Never Alcohol Use Standard Drinks/Week Comments No 0 (1 standard drink = 0.6 oz pur e alcohol) Comments No Sex and Gender Information Value Date Recorded Sex Assigned at Not on file Legal Sex Female 12:51 PM MICA BUILDER Gender Identity Not on file Sexual Orientation Not on file documented as of this encounter Last Filed Vital Signs Vital Sign Reading Time Taken Comments Blood Pressure 120/76 05/13/2021 1:56 PM MICA BUILDER Pulse 102 05/13/2021 1:56 PM MICA BUILDER Temperature 36.5 ??C (97.7 ??F) 05/13/2021 1:56 PM CS T Respiratory Rate 20 05/13/2021 1:56 PM MICA BUILDER Oxygen Saturation 97% 05/13/2021 1:56 PM MICA BUILDER Inhaled Oxygen Concentration - - Weight 131.5 kg (290 lb) 05/13/2021 1:56 PM MICA BUILDER Height 172.7 cm (5' 8 ) 05/13/2021 1:56 PM MICA BUILDER Body Mass Index 44.09 05/13/2021 1:56 PM MICA BUILDER documented in this encounter Plan of Treatment Not on file documented as of this encounter Visit Diagnoses Not on filedocumented in this encounter Additional Health Concerns Infection Onset Date Last Indicated Resolved Time COVID19 Comment:+04/08/21 Tested @ [facility]. Lizette RN 04/08/2021 04/14/2021 05/25/2021 3:[address] documented as of this encounter Home Health Visit - Care Plan Visit Details Visit Type -SN Non-OASIS Sta rt of Care Discipline -Snf Problems Problem Description Start Date Status Goals Interventions Energy Conservation - Pneumonia Disciplines: Snf Energy Conservation related to pneumonia 1 Active - 1 problem intervention scheduled/documen bina in this visit Knowledge deficit on pneumonia Disciplines: Snf Lack of knowledge of management of pneumonia disease process 1 Active 1 goal linked to scheduled/docume [...] goal interventions scheduled/documen bina in this visit [place] Precautions Disciplines: Skilled Disciplines [place] Precautions 1 Active 1 goal linked to scheduled/docume nted intervention 1 goal intervention scheduled/documen bina in this visit Pain Disciplines: Core Disciplines Alteration in comfort 1 Active 1 goal linked to scheduled/docume nted intervention 1 goal intervention scheduled/documen bina in this visit Goals Goal Associated Problem Outcome Goal Met? Visit Notes Verbalize adequate knowledge of pneumonia Description: Patient/Caregiver will verbalize adequate knowledge of pneumonia as evidenced by statements of signs/symptoms, transmissions and causes, signs of exacerbation and actions to take by the end of the episode of care. Knowledge deficit on pneumonia No Patient recieves care at the most appropriate care setting Description: Patient receives care at the most appropriate care setting. Homebound Status No Measure vital signs during every home health visit during episode of care Description: Home space and missile defense operations to measure vital signs during every home [...] precautions Description: Demonstrate knowledge of universal precautions [place] Precautions No Report that pain has been reduced or controlled Description: Report that pain has been reduced or controlled Pain No Interventions Intervention Associated Problem/Goal Status Variance Visit Notes Teach energy conservation Description: Instruct patient/caregiver in methods to conserve energy. Problem:Energy Conservation - Pneumonia Completed Energy conservation strategies instructed with Patient. Patient verbalizes understanding of energy conservation strategies. Instruct breathing techniques Description: Instruct patient/caregiver in deep-breathing and coughing exercises, pursed-lip and abdominal breathing, and positioning for optimal breathing pattern. Problem:Knowledge deficit on pneumonia Goal:Verbalize adequate knowledge of pneumonia Completed Patient instructed in deep-breathing and coughing exercises, pursed-lip and abdominal breathing, and positioning for optimal breathing pattern. Patient verbalizes understanding of treatment regimen and the importance of adherence. Homebound Status Description: Patient is homebound due [...] blood pressure, pulse, oxygen saturation, respirations. VS WNL, HR elevated at 102. Patient instructed to increased fluid intake to 2-3 L of fluid if not contraindication to prevent dehydration. Patient educated, verbalized understanding Home Care Staff Absence Description: In absence of Home Care staff the patient should monitor status as instructed, contact physician with any abnormalities or changes in condition Problem:Standardize d Guidelines Goal:Understanding of when to notify MD in absence of home care staff Completed In absence of Home Care staff the patient should monitor status as instructed, contact physician with any abnormalities or changes in condition. Patient educated, verbalized understanding Instruct Fall Prevention Description: Instruct patient/caregiver in methods to prevent falls Problem:Safety concerns Goal:Demonstrate use of safety precautions Completed Instructed patient in methods to prevent falls. Instructed to keep pathways clear and free of clutter, to keep hallways well lit and to change position slowly to prev ent falls and injuries in the hiome. Patient educated, verbalized understanding Assess safety Description: Assess patient safety Problem:Safety concerns Goal:Demonstrate use of safety precautions Completed Aspects of Care Description: Instruct patient/caregiver on universal precautions and home infection control measures Problem:[place] Precautions Goal:Demonstrate knowledge of universal precautions Completed Instructed patient on universal precautions and home infection control measures. Patient educated, verbalized understanding Instruct on pain management techniques Description: Instruct in pharmacologic and nonpharmacologic pain management techniques. Problem:Pain Goal:Report that pain has been reduced or controlled Completed Instructed in pharmacologic and nonpharmacologic pain management techniques. Instructed to take pain medication at onset of pain or within one hour of scheduled dose for optimal pain control. Patient educated, verbalized understanding documented in this encounter Care Teams Learning Center Coordinator Relationship Specialty Start Date End Date Noris Bob MD [address] [place] [address] PCP - General 04/14/21 Miscellaneous, Not In File 05/09/21 [place] [id number] [facility] [address] [place] [address] Consulting Physician Pulmonary Disease 05/09/21 documented as of this encounter
--- OUTSIDE RECORDS SUMMARY | 2024-06-26 02:25 | XMS_ITS | Encounter Summary ---
Author Organization [facility] Home Care Serv[facility] es Address [address] [place] [address] Phone Care Team Providers Care Dowel Pin Worker Name Role Phone Noris Bob MD Primary Care Provide r Miscellaneous, Not In File Unavailable Unava ilable Johnny Salgado MD Unavailable Reason for Visit * Auth/Cert Specialty Diagnoses / Procedures Referred By Contac t Referred To Contact Referral ID Status Reason Start Date Expiration Date Visits Re quested Visits Authorized [id number] 1 7 Encounter Details Date Type Department Care Team (Late st Contact Info) Description 05/19/2021 Home Care Visit [facility] [address] [place] [phone] Debbie Ortiz RN TELEPHONE ENCOUNTER Social History Tobacco Use Types Packs/Day Years Used Date Smoking Tobacco: Never Smokeless Tobacco: Never Alcohol Use Standard Drinks/Week Comments No 0 (1 standard drink = 0.6 oz pur e alcohol) Comments No Sex and Gender Information Value Date Recorded Sex Assigned at Not on file Legal Sex Female 12:51 PM PEARL GLUE OPERATOR Gender Identity Not on file Sexual [...] documented as of this encounter Care Teams Dowel Pin Worker Relationship Specialty Start Date End Date Noris Bob MD [address] [place] [address] PCP - General 04/14/21 Miscellaneous, Not In File 05/09/21 [place] [address] [address] [facility] [address] [place] [address] Consulting Physician Pulmonary Disease 05/09/21 documented as of this encounter
--- OUTSIDE RECORDS SUMMARY | 2024-06-26 02:25 | XMS_ITS | Encounter Summary ---
Author Organization [facility] Address [address] [place] [address] Phone Care Team Providers Care Skid Wrapper Name Role Phone Noris Bob MD Primary Care Provide r Miscellaneous, Not In File Unavailable Unava ilable Johnny Salgado MD Unavailable [phone] Reason for Visit * Auth/Cert Specialty Diagnoses / Procedures Referred By Contac t Referred To Contact Referral ID Status Reason Start Date Expiration Date Visits Re quested Visits Authorized [id number] 1 7 Encounter Details Date Type Department Care Team (Late st Contact Info) Description 05/26/2021 Home Care Visit [facility] [address] [place] [address] Stephanie Bullard, ELECTRONIC MAINTENANCE SUPERVISOR SCREENING CASE COMMUNICATION Social History Tobacco Use Types Packs/Day Years Used Date Smoking Tobacco: Never Smokeless Tobacco: Never Alcohol Use Standard Drinks/Week Comments No 0 (1 standard drink = 0.6 oz pur e alcohol) Comments No Sex and Gender Information Value Date Recorded Sex Assigned at Not on file 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
--- OUTSIDE RECORDS SUMMARY | 2024-06-26 02:25 | XMS_ITS | Encounter Summary ---
Author Organization [facility] Address [address] [place] [address] Phone Care Team Providers Care Svp [employer] Cooking Name Role Phone Noris Bob MD Primary Care Provide r Miscellaneous, Not In File Unavailable Unava ilable Johnny Salgado MD Unavailable [phone] Reason for Visit * Auth/Cert Specialty Diagnoses / Procedures Referred By Contac t Referred To Contact Referral ID Status Reason Start Date Expiration Date Visits Re quested Visits Authorized [id number] 1 7 Encounter Details Date Type Department Care Team (Late st Contact Info) Description 06/06/2021 1:15 PM CASE MANAGERS Home Care Visit [facility] [address] [place] [id number] Shorty Bella, PT PT REASSESSMENT Social History Tobacco Use Types Packs/Day Years Used Date Smoking Tobacco: Never Smokeless Tobacco: Never Alcohol Use Standard Drinks/Week Comments No 0 (1 standard drink = 0.6 oz pur e alcohol) Comments No Sex and Gender Information Value Date Recorded Sex Assigned at Not on file 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 Gender Identity Not on file Sexual Orientation Not on file documented as of this encounter Last Filed Vital Signs Vital Sign Reading Time Taken Comments Blood Pressure 128/76 06/06/2021 1:23 PM CASE MANAGERS Pulse 96 06/06/2021 1:23 PM CASE MANAGERS Temperature 37 ??C (98.6 ??F) 06/06/2021 1:23 PM CASE MANAGERS Respiratory Rate 20 06/06/2021 1:23 PM CASE MANAGERS Oxygen Saturation 97% 06/06/2021 1:23 PM CASE MANAGERS Inhaled Oxygen Concentration - - Weight - - Height - - Body Mass Index - - documented in this encounter Plan of Treatment Not on file documented as of this encounter Visit Diagnoses Not on filedocumented in this encounter Home Health Visit - Care Plan Visit Details Visit Type -PT Reassessment Discipline -Physical Therapy Problems Problem Description Start Date Status Goals Interve ntions Homebound Status Disciplines: Skilled Disciplines Patient's homebound status 05/13/2021 Active 1 goal linked to scheduled/documen bina intervention 1 goal intervention scheduled/documen ibna in this visit Monitor patient's vital signs every home health visit Disciplines: Skilled Disciplines, Home Health Aide Monitor patient's vital signs every home health visit. 05/13/2021 Active 1 goal linked to scheduled/documen bina intervention 1 goal intervention scheduled/documen bina in this visit Safety concerns Disciplines: Skilled Disciplines Alteration in safety 05/13/2021 Active 1 goal linked to scheduled/documen bina intervention 2 goal interventions scheduled/documen bina in this visit Pain Disciplines: Core Disciplines Alteration in comfort 05/13/2021 Active 1 goal linked to scheduled/documen bina intervention 1 goal intervention scheduled/documen bina in this visit PT Impaired Functional Mobility/Balance Disciplines: Physical Therapy Impaired functional mobility/balance 05/15/2021 Active - 4 problem interventions scheduled/documen bina in this visit Goals Goal Associated Problem Outcome Goal Met? Visit Notes Patient recieves care at the most appropriate care setting Description: Patient receives care at the most appropriate care setting. Homebound Status No Measure vital signs during every home health visit during episode of care Description: Home foot miter operator to measure vital signs during every home health visit during episode of care. Monitor patient's vital signs every home health visit No Demonstrate use of safety precautions Description: Demonstrate use of safety precautions Safety concerns No Report that pain has been reduced [...] health visit during episode of care Completed Instruct Fall Prevention Description: Instruct patient/caregiver in methods to prevent falls Problem:Safety concerns Goal:Demonstrate use of safety precautions Completed Assess safety Description: Assess patient safety Problem:Safety concerns Goal:Demonstrate use of safety precautions Completed Instruct on pain management techniques Description: Instruct in pharmacologic and nonpharmacologic pain management techniques. Problem:Pain Goal:Report that pain has been reduced or controlled Completed see pain assessment Transfer training Description: Instruct patient/caregiver and perform transfer training. Problem:PT Impaired Functional Mobility/Balance Completed see PT assessment Home Exercise Program (HEP) Description: Instruct patient/caregiver and perform HEP. Problem:PT Impaired Functional Mobility/Balance Completed Reviewed and instructed the patient in her HEP that included a walking program (walking every hour for 5 mins), STS strengthening (5 reps/2xdaily), and marching (15reps/2xdaily). The patient voiced understanding and agreed to perform daily. . Reviewed use of incentive spirometer today; pt unable to take breath in without dry cough; pt instructed to perform 5x every hour to help with inspiration . Patient educated on the importance of strengthening her muscles to make them more oxygen efficient. Gait/Stair Training Description: Instruct patient/caregiver and perform gait/stair training. Problem:PT Impaired Functional Mobility/Balance Completed see PT assessment Balance Training/Activities Description: Instruct patient/caregiver and perform balance training activities. Problem:PT Impaired Functional Mobility/Balance Completed see PT assessment documented in this encounter Home Health Visit - Actions and Narratives Narratives The patient is a 46 yo femal e s/p a severe case of COVID, which greatly decreased her overall activity tolerance. The patient is currently on 1L of O2 via NC compared to 6L of O2 via NC when first discharged home. Patient has no complaints of decrease balance or strength, but having difficulty performing normal household activities without severe SOB. . Objective Measures: 2MST = 52 steps (normal for age range is 75 to 107 steps); 13 second TUG; 15 second FTSTS; 26/28 Tinetti . The patient was independent with all bed mobility. Increase SOB and fatigue noted. Multiple rest breaks needed. Patient was on 1L of O2 via NC throughout. The patient was able to perform all STS transfers with SBA, use of hands, arm rests, and no AD. The patient ambulated 50 ft with SBA and no AD. Increase SOB and fatigue noted. Multiple seated rest breaks needed. Patient was on 1L of O2 via NC throughout. SpO2 decreased from 96% to 88% after about 50 ft of ambulation, requiring about 30 seconds of a seated rest break to increase to >90%. Verbal cues given on purse lip breathing, which increase SpO2 after gait training. The patient has 15 steps to enter/exit her home. The patient refused to perfrom the stairs today, but reports needing CGA and multiple rest breaks to ascend/descend them when she went to her most recent MD appt. Further stairs training needed at future visits. . Patient would benefit from skilled physical therapy in gait training, stairs training, strengthening, balance activities, fall risk education, transfer training, and endurance training in order to increase independence at home and be able to participate in community events like going grocery shopping. PT POC of 1 time per week for 4 weeks. The patient will DC from PT services when all goals are met or the patient's progress plateaus. The patient voiced understanding and agrees to PT POC and DC. documented in this encounter Care Teams Svp Digital Sales Food & Cooking Relationship Specialty Start Date End Date Noris Bob MD [address] [place] [address] PCP - General 04/14/21 Miscellaneous, Not In File 05/09/21 [place] [id number] [facility] [address] [place] [address] Consulting Physician Pulmonary Disease 05/09/21 documented as of this encounter
--- OUTSIDE RECORDS SUMMARY | 2024-06-26 02:25 | XMS_ITS | Encounter Summary ---
Author Organization [facility] Home Care [facility] Address [address] [place] [address] Phone Care Team Providers Care Web Editor Name Role Phone Noris Bob MD Primary Care Provide r Miscellaneous, Not In File Unavailable Unava ilable Johnny Salgado MD Unavailable [phone] Reason for Visit * Auth/Cert Specialty Diagnoses / Procedures Referred By Contac t Referred To Contact Referral ID Status Reason Start Date Expiration Date Visits Re quested Visits Authorized [id number] 1 7 Encounter Details Date Type Department Care Team (Late st Contact Info) Description 05/26/2021 2:00 PM HUC OB Home Care Visit [facility] [address] [place] [id number] Stephanie Bullard RN SN HOME VISIT Social History Tobacco Use Types Packs/Day Years Used Date Smoking Tobacco: Never Smokeless Tobacco: Never Alcohol Use Standard Drinks/Week Comments No 0 (1 standard drink = 0.6 oz pur e alcohol) Comments No Sex and Gender Information Value Date Recorded Sex Assigned at Not on file Legal Sex Female 12:51 PM HUC OB Gender Identity Not on file Sexual Orientation Not on file documented as of this encounter Last Filed Vital Signs Vital Sign Reading Time Taken Comments Blood Pressure 125/80 05/26/2021 4:34 PM HUC OB Pulse 98 05/26/2021 4:34 PM HUC OB Temperature 37.2 ??C (99 ??F) 05/26/2021 4:34 PM HUC OB Respiratory Rate 20 05/26/2021 4:34 PM HUC OB Oxygen Saturation 95% 05/26/2021 4:34 PM HUC OB Inhaled Oxygen Concentration - - Weight - - Height - - Body Mass Index - - documented in this encounter Plan of Treatment Not on file documented as of this encounter Visit Diagnoses Not on filedocumented in this encounter Home Health Visit - Care Plan Visit Details Visit Type -SN Home Visit Discipline -Group Home Problems Problem Description Start Date Status Goals Interventions Energy Conservation - Pneumonia Disciplines: Group Home Energy Conservation related to pneumonia 1 Active 1 goal linked to scheduled/docume nted intervention 1 problem intervention scheduled/documen bina in this visit 1 goal intervention scheduled/documen bina in this visit Learning/Teaching Needs - Diabetes Disciplines: Group Home Learning and teaching needs associated with diagnosis [...] scheduled/docume nted intervention 1 goal intervention scheduled/documen bian in this visit Moneta Precautions Disciplines: Skilled Disciplines Moneta Precautions 1 Active 1 goal linked to scheduled/docume nted intervention 1 goal intervention scheduled/documen bina in this visit Goals Goal Associated Problem Outcome Goal Met? Visit Notes Verbalize methods to conserve energy Description: Patient/caregiver will verbalize methods to decrease episodes of fatigue and demonstrate energy conservation techniques by the end of the episode of care. Energy Conservation - Pneumonia No Demonstrate adequate knowledge of Diabetes Description: Patient/caregiver [...] visit during episode of care Description: Home psychology clinician to measure vital signs during every home [...] precautions Description: Demonstrate knowledge of universal precautions Moneta Precautions No Interventions Intervention Associated Problem/Goal Status Variance Visit Notes Teach energy conservation Description: Instruct patient/caregiver in methods to conserve energy. Problem:Energy Conservation - Pneumonia Goal:Verbalize methods to conserve energy Completed Instruct patient/caregiver in methods to conserve energy. Instructed to consume smaller meals more often to conserve energy. Patient educated, verbalized understanding Instruct energy conservation Description: Instruct patient/caregiver on energy conservation strategies and use of assistive devices to minimize energy expenditure. Problem:Energy Conservation - Pneumonia Completed Instruct patient/caregiver on energy conservation strategies and use of assistive devices to minimize energy expenditure. Instructed to balance rest with activity, to consume smaller meals more ofter and rest during task to prevent fatigue. Patient educated, verbalized understanding Blood glucose monitoring Description: Patient/caregiver to perform blood sugar testing and record in log. Frequency of testing per physician's request Problem:Learning/Teac matthias Needs - Diabetes Goal:Demonstrate adequate knowledge of Diabetes Completed Patient has not started testing blood sugar as of this visit. My lancet but I should be getting new ones today Homebound Status Description: Patient is homebound due [...] pressure, pulse, oxygen saturation, respirations. VS WNL. Patient tolerated procedure well Home Care Staff Absence Description: In absence [...] changes in condition. Patient educated, verbalized understanding Assess safety Description: Assess patient safety Problem:Safety concerns Goal:Demonstrate use of safety precautions Completed Aspects of Care Description: Instruct patient/caregiver on universal precautions and home infection control measures Problem:Mon[place] Precautions Goal:Demonstrate knowledge of universal precautions Completed Instruct patient/caregiver on universal precautions and home infection control measures. Patient educated, verbalized understanding documented in this encounter Care Teams Web Editor Relationship Specialty Start Date End Date Noris Bob MD [address] [place] [address] PCP - General 04/14/21 Miscellaneous, Not In File 05/09/21 [place] [id number] [facility] [address] [place] [address] Consulting Physician Pulmonary Disease 05/09/21 documented as of this encounter
--- OUTSIDE RECORDS SUMMARY | 2024-06-26 02:25 | XMS_ITS | Encounter Summary ---
Author Organization [facility] Home [facility] Address [address] [place] [address] Phone Care Team Providers Care Workforce Investment Act Career Manager Name Role Phone Noris Bob MD Primary Care Provide r Miscellaneous, Not In File Unavailable Unava ilable Johnny Salgado MD Unavailable [phone] Encounter Details Date Type Department Care Team (Late st Contact Info) Description 05/13/2021 Plan of Care Documentation [facility] [address] [place] [address] Social History Tobacco Use Types Packs/Day Years Used Date Smoking Tobacco: Never Smokeless Tobacco: Never Alcohol Use Standard Drinks/Week Comments No 0 (1 standard drink = 0.6 oz pur e alcohol) Comments No Sex and Gender Information Value Date Recorded Sex Assigned at Not on file 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
--- OUTSIDE RECORDS SUMMARY | 2024-06-26 02:26 | XMS_ITS | Encounter Summary ---
Author Organization [facility] Address [address] [place] [address] Care Team Providers Care Panel Assembler Name Role Phone Noris Bob MD Primary Care Provide r Miscellaneous, Not In File Unavailable Unava ilable Johnny Salgado MD Unavailable [phone] Reason for Visit * Reason Comments COVID-19 EVALUATION Encounter Details Date Type Department Care Team (Latest Contact Info) Description 04/14/2021 12:49 AM CDT - 05/09/2021 8:01 PM CRINKLING MACHINE OPERATOR Hospital Encounter [facility] [id number] [phone] Adrian Harrison MD [address] [place] [address] [place] [address] [id number] [place] [address] [address] [place] [address] [address] [place] [address] [address] [place] [address] [facility] [address] [place], [place] [id number] [place] [address] [facility] [address] [place] [address] [place] [address] [facility] [address] [place], [place] [id number] Pneumonia due to COVID-19 virus (Primary Dx); Hypoxia; Physical deconditioning Discharge Disposition: Discharge to home, home health skilled care Social History Tobacco Use Types Packs/Day Years Used Date Smoking Tobacco: Never Smokeless Tobacco: Never Alcohol Use Standard Drinks/Week Comments No 0 (1 standard drink = 0.6 oz pur e alcohol) Comments No Sex and Gender Information Value Date Recorded Sex Assigned at Not on file Legal Sex Female 12:51 PM CRINKLING MACHINE OPERATOR Gender Identity Not on file Sexual Orientation Not on file documented as of this encounter Last Filed Vital Signs Vital Sign Reading Time Taken Comments Blood Pressure 106/61 05/09/2021 3:07 PM CRINKLING MACHINE OPERATOR Pulse 87 05/09/2021 4:00 PM CRINKLING MACHINE OPERATOR Temperature 36.9 ??C (98.4 ??F) 05/09/2021 3:07 PM CS T Respiratory Rate 20 05/09/2021 3:07 PM CRINKLING MACHINE OPERATOR Oxygen Saturation 96% 05/09/2021 6:00 PM CRINKLING MACHINE OPERATOR Inhaled Oxygen Concentration - - Weight 121.8 kg (268 lb 9.6 oz) 05/06/2021 3:08 AM CRINKLING MACHINE OPERATOR Height 172.7 cm (5' 7.99 ) 04/24/2021 3:32 PM CD T Body Mass Index 40.85 04/24/2021 3:32 PM CDT documented in this encounter Discharge Diagnoses Diagnosis COVID-19 - COVID-19 Pneumonia due to coronavirus disease 2019 (CODE) - PNEUMONIA DUE TO CORONAVIRUS DISEASE 2019 Acute respiratory failure with hypoxia (CMS/HCC) (HCC) - ACUTE RESPIRATORY FAILURE WITH HYPOXIA Body mass index (BMI) 40.0-44.9, adult (HCC) - BODY MASS INDEX [BMI] 40.0-44.9, ADULT Hypothyroidism, unspecified - HYPOTHYROIDISM, UNSPECIFIED Type 2 diabetes mellitus with hyperglycemia (CMS/HCC) (HCC) - TYPE 2 DIABETES MELLITUS WITH HYPERGLYCEMIA Morbid (severe) obesity due to excess calories (HCC) - MORBID (SEVERE) OBESITY DUE TO EXCESS CALORIES Hyperlipidemia, unspecified - HYPERLIPIDEMIA, UNSPECIFIED Other malaise - OTHER MALAISE Dehydration - DEHYDRATION Streptococcal pharyngitis - STREPTOCOCCAL PHARYNGITIS Streptococcal sore throat Adverse effect of glucocorticoids and synthetic analogues, initial encounter - ADVERSE EFFECT OF GLUCOCORTICOIDS AND SYNTHETIC ANALOGUES, INITIAL ENCOUNTER Unspecified place in hospital as the place of occurrence of the external cause - UNSPECIFIED PLACE IN HOSPITAL THE PLACE OF OCCURRENCE OF THE EXTERNAL CAUSE Other specified events, undetermined intent, initial encounter - OTHER SPECIFIED EVENTS, UNDETERMINED INTENT, INITIAL ENCOUNTER Hormone replacement therapy - HORMONE REPLACEMENT THERAPY Family history of ischemic heart disease and other diseases of the circulatory system - FAMILY HISTORY OF ISCHEMIC HEART DISEASE AND OTHER DISEASES OF THE CIRCULATORY SYSTEM Family history of diabetes mellitus - FAMILY HISTORY OF DIABETES MELLITUS documented in this encounter Discharge Summaries * Sarah Gross MD - 05/09/2021 4:30 PM CST Inpatient Discharge Summary BRIEF OVERVIEW Admitting Provider: Suni Iqbal DO Discharge Provider: Sarah Gross MD Primary Care Physician at Discharge: Noris Bob MD [phone] Admission Date: 04/14/2021 Discharge Date: 05/09/2021 Primary Discharge Diagnosis: Principal Problem: Pneumonia due to COVID-19 virus Active Problems: Hyperlipidemia Hypothyroidism Acute respiratory failure with hypoxia (CMS/[facility]) ([facility]) Elevated AST (SGOT) Dehydration Resolved Problems: No resolved hospital problems. DETAILS OF HOSPITAL STAY Presenting Problem/History of Present Illness: Per H&P: This is a patient presents to [facility] Emergency Department on 04/14/2021 with her as well who is also being admitted with both of them having COVID-19. According to the patient she states that both her and her and their 5-year-old child have been diagnosed with COVID- 19 and strep pharyngitis. She states that she had been feeling slightly fatigued over the last week but then suddenly noticed that she developed shortness of breath upon exertion. She states that it is worse with inhalation and this also tends to hurt her chest. ?? D-dimer elevated greater than 600 CT scan of chest for PE protocol negative. Patient is now requiring 11 L of oxygen high-flow nasal cannula and is satting approximately 94% on this. Hospital Course: 1. Acute respiratory failure with hypoxia secondary to COVID pneumonia. Patient was initially needing Opti Flow; Patient is now on 5 L nasal cannula; continue to wean down; encourage patient to continue to use incentive spirometry. ?? Home oxygen assessment was done patient needs 3 L at rest and 6 with exertion; discussed with patient regarding to monitor her postop; follow-up with PCP or pulmonology for assessment for the termof her oxygen needs. 2. COVID 19 infection. Patient completed 5 days course of IV remdesivir; IV Decadron and Baricitinib. 3. Elevated D-dimer. PE was negative for acute or chronic PE; extensive bilateral infiltrates consistent with COVID-19 appearance; most likely secondary to COVID infection; 4. Hyperlipidemia. Continue with statin; 5. Hypothyroidism. Continue Synthroid 75 mcg daily; 6. T2 DM. A1c is 7.1 on 04/17/2021. Patient has history of gestational diabetes She is familiar with diabetes; will DC home with metformin; advised patient to follow up with PCP for further management. 7. Morbid obesity. BMI of 40; can benefit from weight loss; 8. Physical deconditioning secondary to infection and prolonged hospital stay; PT/OT consulted; recommend home health PT; Work excuse was provided Operative Procedures Performed: Discharge Details Physical Exam at Discharge: Discharge Condition: stable Pulse: 90 Resp: 20 BP: 106/61 Temp: 36.9 ??C (98.4 ??F) Pertinent Exam Findings at Discharge: Physical Exam Constitutional: Appearance: Normal appearance. She is well-developed. She is obese. HENT: Head: Normocephalic and atraumatic. Eyes: Conjunctiva/sclera: Conjunctivae normal. Pupils: Pupils are equal, round, and reactive to light. Cardiovascular: Rate and Rhythm: Normal rate and regular rhythm. Heart sounds: Normal heart sounds. Pulmonary: Comments: On oxygen Dry cough Abdominal: General: Bowel sounds are normal. There is no distension. Palpations: Abdomen is soft. Tenderness: There is no abdominal tenderness. There is no guarding. Musculoskeletal: General: No tenderness. Normal range of motion. Cervical back: Normal range of motion and neck supple. Skin: General: Skin is warm and dry. Neurological: Mental Status: She is alert and oriented to person, place, and time. Cranial Nerves: No cranial nerve deficit. Psychiatric: Behavior: Behavior normal. Thought Content: Thought content normal. Judgment: Judgment normal. Recent Results (from the past 48 hour(s)) POCT glucose Collection Time: 05/07/21 5:26 PM Result Value Ref Range Glucose, POC 173 70 - 199 mg/dL POCT glucose Collection Time: 05/07/21 9:03 PM Result Value Ref Range Glucose, POC 205 (H) 70 - 199 mg/dL POCT glucose Collection Time: 05/08/21 3:08 AM Result Value Ref Range Glucose, POC 147 70 - 199 mg/dL CBC with auto differential Collection Time: 05/08/21 4:43 AM Result Value Ref Range WBC 6.6 3.8 - 9.9 K/cumm Hgb 10.2 (L) 11.9 - 15.5 g/dL Hct 33.5 (L) 35.6 - 45.5 % Plt 180 150 - 400 K/cumm MPV 12.6 (H) 9.1 - 12.3 fL RBC 3.56 (L) 3.90 - 5.20 M/cumm MCV 94.1 81.3 - 96.4 fL MCH 28.7 27.1 - 33.3 pg MCHC 30.4 (L) 32.3 - 35.7 g/dL RDW CV 15.8 (H) 11.1 - 14.9 % RDW SD 54.0 (H) 35.7 - 48.1 fL NRBC abs 0.00 0.00 - 0.01 K/cumm Basic metabolic panel Collection Time: 05/08/21 4:43 AM Result Value Ref Range Sodium 144 135 - 145 mmol/L Potassium, pl 4.0 3.3 - 4.9 mmol/L Chloride 106 97 - 110 mmol/L CO2 30 22 - 32 mmol/L Anion gap 8 2 - 15 mmol/L BUN 11 8 - 25 mg/dL Creatinine 0.48 (L) 0.60 - 1.10 mg/dL Glucose 149 70 - 199 mg/dL Calcium 9.0 8.5 - 10.3 mg/dL Differential, auto Collection Time: 05/08/21 4:43 AM Result Value Ref Range Neutrophil abs 3.7 1.7 - 6.5 K/cumm Imm gran abs 0.0 0.0 - 0.1 K/cumm Lymphocyte abs 1.6 0.8 - 3.3 K/cumm Monocyte abs 0.4 0.2 - 0.8 K/cumm Eosinophil abs 0.9 (H) 0.0 - 0.5 K/cumm Basophil abs 0.0 0.0 - 0.1 K/cumm Neutrophil pct 56.4 % Imm gran pct 0.3 % Lymphocyte pct 23.6 % Monocyte pct 6.2 % Eosinophil pct 12.9 % Basophil pct 0.6 % eGFR Collection Time: 05/08/21 4:43 AM Result Value Ref Range eGFR 118 mL/min/1.73 m2 POCT glucose Collection Time: 05/08/21 6:10 AM Result Value Ref Range Glucose, POC 134 70 - 199 mg/dL POCT glucose Collection Time: 05/08/21 11:45 AM Result Value Ref Range Glucose, POC 150 70 - 199 mg/dL POCT glucose Collection Time: 05/08/21 5:10 PM Result Value Ref Range Glucose, POC 174 70 - 199 mg/dL POCT glucose Collection Time: 05/08/21 9:22 PM Result Value Ref Range Glucose, POC 249 (H) 70 - 199 mg/dL POCT glucose Collection Time: 05/09/21 2:55 AM Result Value Ref Range Glucose, POC 124 70 - 199 mg/dL CBC with auto differential Collection Time: 05/09/21 4:35 AM Result Value Ref Range WBC 6.7 3.8 - 9.9 K/cumm Hgb 9.9 (L) 11.9 - 15.5 g/dL Hct 33.3 (L) 35.6 - 45.5 % Plt 176 150 - 400 K/cumm MPV 12.3 9.1 - 12.3 fL RBC 3.55 (L) 3.90 - 5.20 M/cumm MCV 93.8 81.3 - 96.4 fL MCH 27.9 27.1 - 33.3 pg MCHC 29.7 (L) 32.3 - 35.7 g/dL RDW CV 15.9 (H) 11.1 - 14.9 % RDW SD 54.5 (H) 35.7 - 48.1 fL NRBC abs 0.00 0.00 - 0.01 K/cumm Basic metabolic panel Collection Time: 05/09/21 4:35 AM Result Value Ref Range Sodium 140 135 - 145 mmol/L Potassium, pl 3.8 3.3 - 4.9 mmol/L Chloride 102 97 - 110 mmol/L CO2 29 22 - 32 mmol/L Anion gap 9 2 - 15 mmol/L BUN 9 8 - 25 mg/dL Creatinine 0.47 (L) 0.60 - 1.10 mg/dL Glucose 121 70 - 199 mg/dL Calcium 8.7 8.5 - 10.3 mg/dL Differential, auto Collection Time: 05/09/21 4:35 AM Result Value Ref Range Neutrophil abs 3.8 1.7 - 6.5 K/cumm Imm gran abs 0.0 0.0 - 0.1 K/cumm Lymphocyte abs 1.6 0.8 - 3.3 K/cumm Monocyte abs 0.5 0.2 - 0.8 K/cumm Eosinophil abs 0.8 (H) 0.0 - 0.5 K/cumm Basophil abs 0.0 0.0 - 0.1 K/cumm Neutrophil pct 56.2 % Imm gran pct 0.4 % Lymphocyte pct 24.0 % Monocyte pct 6.7 % Eosinophil pct 12.1 % Basophil pct 0.6 % eGFR Collection Time: 05/09/21 4:35 AM Result Value Ref Range eGFR 118 mL/min/1.73 m2 POCT glucose Collection Time: 05/09/21 6:34 AM Result Value Ref Range Glucose, POC 97 70 - 199 mg/dL POCT glucose Collection Time: 05/09/21 11:40 AM Result Value Ref Range Glucose, POC 186 70 - 199 mg/dL Discharge Disposition: Code Status at Discharge: Full Code Discharge Instructions: Activity Instructions Discharge activity: Resume normal activity Diet Instructions Adult Discharge Diet Diet Type: Return to previous diet Restrict salt intake to less than 2000 mg per day Dietitian recommends consistent carbohydrate diet on discharge. -Read the nutrition facts label on packages for serving size and eat 60-75 grams of carbohydrates per meal. Eat 3 meals per day, try to eat at regular times. Limit concentrated sweets/desserts, cookies, cake, candy, ice cream, and sweetened beverages (regular soda, lemonade, gatorade, and sweet tea). Monitor blood sugars and take medications as directed by your doctor. Additional resources available from the [place] [employer] can be found at www.diabetes.org/nutrition -Eat a variety of healthy foods from all the food groups. Eat fruits, vegetables, whole grains, andfat-free or low-fat dairy foods. Whole grains include whole-wheat breads, cereals, pasta, and brownrice. Choose lean meats, poultry (chicken and turkey), fish, beans, eggs, and nuts. A healthy meal plan is low in unhealthy fats, salt, and added sugar. Healthy fats include olive oil and canola oil.Recommend to avoid sugary drinks like lemonade, regular soda, gatorade, and sweet tea. Additional resources are available online from the Academy of Nutrition and Dietetics at www.eatright.org Drink Ensure High Protein or Glucerna 1-2 times daily to promote adequate Calorie/Protein intakes. Please call the dietitian's office at [phone] if you have questions about nutrition. If you would like to see our outpatient dietitian please have your physician fax a referral to [phone], and you may call [phone] to make an appointment. Other Instructions Ambulatory referral to Home Health Service Line: Home Health Primary disciplines requested: Longterm Physical Therapy Home Health Services: Therapy to Eval/ Treat Evaluate Strengenthing/ Balance Physician to follow patient's care (the person listed here will be responsible for signing ongoing orders): PCP Requested Start of Care Date: Next Week I attest that I or another qualified licensed provider saw the patient 90 days prior to or 30 days post admission and this face to face encounter meets the necessary Home Health requirements. The face to face encounter occurred on (date): 05/09/2021 The encounter with the patient was in whole, or in part, for the following medical condition, whichis the primary reason for home health care. (List medical condition): covid 19 I certify that, based on my findings, the following services are medically necessary skilled home health services: Therapy to Eval/ Treat Evaluate Strengenthing/ Balance Strengthening Exercises Clinical findings that support the need for home care: Medical condition requiring skilled assessment/education I certify that my clinical findings support patient's homebound status. Homebound criteria met because: Poor endurance Shortness of breath with minimal exertion Call provider for: Call provider for: Temperature -Temperature greater than 101 degrees F Call provider for: difficulty breathing or chest pain Call provider for: extreme fatigue Call provider for: hives Call provider for: persistent dizziness or light-headedness Call provider for: redness, tenderness, or signs of infection (pain, swelling, redness, odor or green/yellow discharge around incision site) Call provider for: severe uncontrolled pain Call provider for: headache, visual disturbances, weakness and speech changes Oxygen Patient needs 3L at rest and 6L with activity Type of System: Gaseous Concentrator Liter flow (Lpm): 6 Usage: Continuous W/ Activity Delivery Mode: Nasal Cannula For (# of months): 99 SPO2 of 88 percent or less or ABG of 55 mm Hg or less that shows test completed within 48 hours of discharge?: Yes The [id number] evaluation was performed on: 05/09/2021 DME services provided by: External Agency Special Instructions Discharge Medications: Current Discharge Medication List CONTINUE these medications which have NOT CHANGED Details levothyroxine (SYNTHROID) 75 mcg tablet Current Discharge Medication List START taking these medications Details benzocaine-menthoL (CEPACOL) 15-3.6 mg lozenge Dissolve 1 lozenge in the mouth every 2 (two) hours as needed (Coughing) Qty: 100 lozenge, Refills: 0 benzonatate (TESSALON) 100 mg capsule Take 1 capsule (100 mg total) by mouth 3 (three) times a day as needed for cough Qty: 30 capsule, Refills: 0 cetirizine (ZyrTEC) 10 mg tablet Take 1 tablet (10 mg total) by mouth daily Qty: 30 tablet, Refills: 0 guaiFENesin-dextromethorphan ER (MUCINEX DM) 600-30 mg tablet extended release 12 hr Take 1 tablet by mouth 2 (two) times a day Qty: 28 tablet, Refills: 0 metFORMIN (GLUCOPHAGE) 500 mg tablet Take 1 tablet (500 mg total) by mouth 2 (two) times a day withmeals Qty: 60 tablet, Refills: [address] (PROTONIX) 40 mg EC tablet Take 1 tablet (40 mg total) by mouth daily Qty: 30 tablet, Refills: 0 Current Discharge Medication List Current Discharge Medication List STOP taking these medications penicillin v potassium (VEETID) 500 mg tablet Comments: Reason for Stopping: Outpatient Follow-Up: No future appointments. F/u with PCP in 5-7 days [facility] [address] [facility] [address] Follow up Home health will see you on 05/14. Miscellaneous, Not In File Follow-up with PCP in 5-[place] [address] [facility] [address] [facility] [address] Follow-up with pulmonology in 2 weeks Time Spent in examining the patient, explaining the discharge diagnosis and going through medications took 40 minutes Signed: Sarah Gross MD [facility] [phone] 05/09/2021 4:30 PM KLING MACHINE OPERATOR documented in this encounter Discharge Instructions * Discharge Instr - Diet* Adelaida Briones RD - 04/21/2021 3:22 PM CDT Dietitian recommends consistent carbohydrate diet on discharge. -Read the nutrition facts label on packages for serving size and eat 60-75 grams of carbohydrates per meal. Eat 3 meals per day, try to eat at regular times. Limit concentrated sweets/desserts, cookies, cake, candy, ice cream, and sweetened beverages (regular soda, lemonade, gatorade, and sweet tea). Monitor blood sugars and take medications as directed by your doctor. Additional resources available from the [place] [employer] can be found at www.diabetes.org/nutrition -Eat a variety of healthy foods from all the food groups. Eat fruits, vegetables, whole grains, andfat-free or low-fat dairy foods. Whole grains include whole-wheat breads, cereals, pasta, and brownrice. Choose lean meats, poultry (chicken and turkey), fish, beans, eggs, and nuts. A healthy meal plan is low in unhealthy fats, salt, and added sugar. Healthy fats include olive oil and canola oil.Recommend to avoid sugary drinks like lemonade, regular soda, gatorade, and sweet tea. Additional resources are available online from the Academy of Nutrition and Dietetics at www.eatright.org Drink Ensure High Protein or Glucerna 1-2 times daily to promote adequate Calorie/Protein intakes. Please call the dietitian's office at [phone] if you have questions about nutrition. If you would like to see our outpatient dietitian please have your physician fax a referral to [phone], and you may call [phone] to make an appointment. * Attachments The following attachments cannot be sent through Care Everywhere. * Basic Carbohydrate Counting (General Information) (Tamazight) documented in this encounter Medications at Time of Discharge benzocaine-mentho L (CEPACOL) 15-3.6 mg lozenge Dissolve [...] a day with meals 60 tablet 05/09/[address] (PROTONIX) 40 mg EC tabletIndications :Stress Ulcer Prophylaxis Take 1 tablet (40 mg total) by mouth daily 30 tablet 05/10/2021 cetirizine (ZyrTEC) 10 mg tablet Take 1 tablet (10 mg total) by mouth daily 30 tablet 05/10/2021 12/13/202 1 documented as of this encounter Ordered Prescriptions Prescription Sig Dispense Quantity Refills Last Filled Start Date End Date metFORMIN (GLUCOPHAGE) 500 mg tablet Take 1 tablet (500 mg total) by mouth 2 (two) times a day with meals 60 tablet 05/09/[address] (PROTONIX) 40 mg EC tabletIndications: Stress Ulcer Prophylaxis Take 1 tablet (40 mg total) by mouth daily 30 tablet 05/10/2021 guaiFENesin-dextro methorphan ER (MUCINEX DM) 600-30 mg tablet extended release 12 hr Take 1 tablet by mouth 2 (two) times a day 28 tablet 05/09/2021 benzonatate (TESSALON) 100 mg capsuleIndications :Cough Take 1 capsule (100 mg total) by mouth 3 (three) times a day as needed for cough 30 capsule 05/09/2021 benzocaine-menthoL (CEPACOL) 15-3.6 mg lozenge Dissolve 1 lozenge in the mouth every 2 (two) hours as needed (Coughing) 100 lozenge 05/09/2021 cetirizine (ZyrTEC) 10 mg tablet Take 1 tablet (10 mg total) by mouth daily 30 tablet 05/10/2021 1 documented in this encounter Discharge Disposition Disposition Code Departure Means Destination Discharge to home, home health skilled care documented in this encounter Progress Notes * Hoda Rockwell, PT - 05/09/2021 3:04 PM CST Physical Therapy PT PROGRESS NOTE Shaina Huynh 46 y.o. 1975 Past Medical History: Diagnosis Date Thyroid disease Past Surgical History: Procedure Laterality Date SECTION Patient Active Problem List Diagnosis Hyperlipidemia Lipoprotein deficiency disorder Pneumonia due to COVID-19 virus Hypothyroidism Prediabetes Seasonal allergies Acute respiratory failure with hypoxia (CMS/HCC) (HCC) Elevated AST (SGOT) Dehydration TIME IN: 1508 TIME OUT: 1342 SUBJECTIVE They told me I'm going home soon MENTAL STATUS/ORIENTATION: Alert and oriented x4 PAIN: Pre-therapy pain level: 0/10 Pain location: n/a Pain intervention: n/a Post-therapy pain level/response to intervention: 0/10 OBJECTIVE PRECAUTIONS: fall, Bed/chair alarm 3L O2 via NC, contact and airborne for COVID 19 APPEARANCE/POSTURE: Patient sitting in b/s recliner, call light within reach and on, 3L O2, no chair alarm in use VITAL SIGNS: Resting BP: 106/61 Resting heart rate: 88 Post-activity heart rate: 112 Resting O2 sat: 95% Post-activity O2 sat: 83% on 6L O2 via NC, recovered to 94% on 6L NC with pursed lip breathing techniques, ended session at 93% on 3L O2 via NC MOBILITY DOCUMENTATION: Bed Mobility/Transfers: Sit to/from stand: SBA with WW Chair to/from toilet: SBA with WW Patient performs pericare with SBA with no assistive device after continent episode Gait: 75' SBA with WW, increased lateral trunk sway, increased SOB, steady, slow, non functional thomas APPEARANCE/POSTURE (end of session): Patient sitting in b/s chair, no chair alarm, 3L O2 via NC, call light within reach and on,no chair alarm on, hand off given to Patricia DE ANDA. EDUCATION: Transfers, gait, safety RESPONSE TO EDUCATION: needs reinforcement ASSESSMENT Activity tolerance/response to P.T.: Patient tolerates session good. Desats to 83% despite 6L O2 via NC. Barriers to learning: Physical Barriers to discharge: Decreased endurance and Stairs at home Patient continues progressing toward previously set goals which remain appropriate at this time. PLAN Patient to be seen for P.T. 3-5 times per week to address previously established deficits and goals. DISCHARGE LOCATION RECOMMENDATIONS: HOME with supervision and HHPT If this is the last note, please consider this the discharge summary. Hoda Rockwell, PT 05/09/21 4:03 PM KLING MACHINE OPERATOR * Jenae Pfeiffer, RESIDENTIAL SERVICE TECHNICIAN - 05/09/2021 11:33 AM CST 05/09/21 1100 Resting Information Resting HR. 96 bpm Resting SPO2 86 % Oxygen Setting RA Ambulation Trials to Assess Desaturation to 88% Activity 1: Ambulated (feet) 0 feet Oxygen Setting #1 3 SPO2 (%) #1 90 % Activity 2: Ambulated (feet) 15 feet Oxygen Setting #2 4 SPO2 (%) #2 86 % Activity 3: Ambulated (feet) 20 feet Oxygen Setting #3 6 SPO2 (%) #3 92 % Activity 4: Ambulated (feet) 40 feet Oxygen Setting #4 6 SPO2 % #4 91 % Activity 5: Ambulated (feet) 60 feet Oxygen Setting #5 6 SPO2 (%) #5 92 % Post Ambulation Assessment HR Post Assessment 96 bpm RR Post Assessment 20 breaths/m Post Assessment Recommendation pt requires 3 liters at rest and 6 liters with exercation $ Pulmonary Stress Test Pulm Stress Test In the first 20 feet patient had to increase oxygen from 3 liters to 6liters quickly because sats dropped to 86. Pt was able to maintain sats of 92 on 6 liters of oxygen. KLING MACHINE OPERATOR * Flavio العلي MD - 05/09/2021 11:28 AM CST Pulmonary Daily Progress Chief complaint/reason for consult: Covid 19. Interval History: Pt continues to improve Oxygen reduced to 3 lpm at rest; has continued to require 6 lpm with activity No chest pain Comfortable Coughing with incentive spirometer Has completed Remdesivir, decadron and Baricitinib Presenting History: 46 yo woman w hypothyroidism and BMI 44 admitted 04/14 after presenting to the ED with shortness of breath. Sx present about a week. Started w cough. No chest pain. COVID positive. also hospitalized w COVID. No pre-existing lung disease. CT chest with diffuse patchy gg infiltrates consistent w COVID. Steroids began 04/14 Remdesivir started 04/14 Strep screen + on 04/08/21 Covid 19 + pcr 04/08/21 Allergies: No Known Allergies Medications: Scheduled Meds:cetirizine, 10 mg, oral, Daily enoxaparin, 40 mg, subcutaneous, Q12H [facility] guaiFENesin-dextromethorphan ER, 1 tablet, oral, BID insulin glargine, 10 Units, subcutaneous, Nightly insulin lispro, 0-4 Units, subcutaneous, Nightly insulin lispro, 0-5 Units, subcutaneous, TID with meals insulin lispro, 4 Units, subcutaneous, TID with meals levothyroxine, 75 mcg, oral, Daily - [address], 40 mg, oral, Daily Continuous Infusions: PRN Meds:.??? acetaminophen ??? benzocaine-menthoL ??? benzonatate ??? dextrose OR dextrose ??? glucagon ??? HYDROcodone-homatropine ??? hydrOXYzine ??? ondansetron ODT OR ondansetron ??? sodium chloride ??? traZODone ROS Above review of system reviewed on 05/09/2021 Vitals: Vitals: 05/09/21 0329 05/09/21 0800 05/09/21 0940 05/09/21 1022 BP: 110/67 BP Location: Patient Position: Pulse: 79 88 Resp: 20 Temp: 36.7 ??C (98.1 ??F) TempSrc: SpO2: 93% 95% (!) 85% 92% Weight: Height: Temp (24hrs), Av.8 ??C (98.2 ??F), Min:36.5 ??C (97.7 ??F), Max:37 ??C (98.6 ??F) Intake/Output Summary (Last 24 hours) at 05/09/2021 1128 Last data filed at 05/08/2021 1805 Gross per 24 hour Intake 300 ml Output -- Net 300 ml Physical Exam Vitals and nursing note reviewed. Constitutional: Appearance: She is obese. HENT: Head: Normocephalic and atraumatic. Cardiovascular: Rate and Rhythm: Normal rate and regular rhythm. Heart sounds: No murmur heard. Pulmonary: Effort: No respiratory distress. Breath sounds: No wheezing or rales. Abdominal: General: Abdomen is flat. Palpations: Abdomen is soft. Musculoskeletal: Right lower leg: No edema. Left lower leg: No edema. Skin: General: Skin is warm and dry. Neurological: Mental Status: She is alert. Psychiatric: Behavior: Behavior normal. Lab/Radiology/Diagnostic Review: Labs: Recent Labs Lab Units 05/09/21 0435 05/08/21 0443 05/07/21 0419 WBC K/cumm 6.7 6.6 7.9 HEMOGLOBIN g/dL 9.9* 10.2* 10.5* HEMATOCRIT % 33.3* 33.5* 34.2* PLATELETS K/cumm 176 180 197 NEUTROS PCT % 56.2 56.4 55.4 LYMPHS PCT % 24.0 23.6 25.1 MONOS PCT % 6.7 6.2 6.4 EOS PCT % 12.1 12.9 12.1 Recent Labs Lab Units 05/09/21 0634 05/09/21 0435 05/09/21 0255 05/08/21 0610 05/08/21 0443 05/07/21 0624 05/07/21 0419 SODIUM mmol/L -- 140 -- -- 144 -- 139 POTASSIUM PLASMA mmol/L -- 3.8 -- -- 4.0 -- 3.9 CHLORIDE mmol/L -- 102 -- -- 106 -- 99 CO2 mmol/L -- 29 -- -- 30 -- 30 ANIONGAP mmol/L -- 9 -- -- 8 -- 10 GLUCOSE mg/dL -- 121 -- -- 149 < > 144 POC GLUCOSE MONITOR mg/dL 97 -- 124 < > -- < > -- BUN SERUM mg/dL -- 9 -- -- 11 -- 13 CREATININE mg/dL -- 0.47* -- -- 0.48* -- 0.57* CALCIUM mg/dL -- 8.7 -- -- 9.0 -- 8.8 < > = values in this interval not displayed. Recent Labs Lab Units 05/03/21 1759 D DIMER ng/mL FEU 3,856* Imaging: CXR 05/03: increased bilateral infiltrates CXR 04/14 bilateral patchy ground-glass infiltrate left greater than right Other diagnostic tests: I have personally reviewed above laboratory findings, chest imaging, and diagnostic tests 05/09/2021 Assessment and Plan: COVID 19, dx 04/14, symptom onset approx 04/08/21 positive test on 04/08/2021 Acute respiratory failure Hypothyroidism BMI 44 ?? Recs: O2 as required, wean as able Once at acceptable level can evaluate for discharge to home with oxygen Incentive spirometry DVT prophylaxis Increase activity/PT Chart reviewed KLING MACHINE OPERATOR * Ashley Wyatt, OT - 05/09/2021 10:45 AM CST Occupational Therapy NOTE / SESSION TYPE: INTERIM Patient Name: Shaina Huynh Date of : 1975 Age / Sex: 46 y.o. / female Room: [place] [id number] Admit Date: 04/14/2021 Date of Service: 05/09/21 Time In: 10:45 Time Out: 10:56 AND (Session interrupted by arrival of respiratory therapy to complete walking study with patient) Time In: 11:45 Time Out: 12:13 Primary Diagnosis: Pneumonia due to COVID-19 virus HPI for interim this date: New wound on left forearm, physical deconditioning HPI from initial OT Evaluation on 04/30/21: Shaina Huynh is a 46 y.o. female who presents with worsening SOB, cough, fatigue, diagnosed with COVID-19 six days prior to arrival to hospital- and son also have COVID-19, patient reports also having strep pharyngitis, pneumonia due to COVID-19 virus, hypoxia, acute respiratory failure, dehydration, rapid response called on 04/15/21 due to declining SPO2- patient placed on 15 L highflow and 15 L non-rebreather, possible upper respiratory infection, fatigue, hyperglycemia, leukocytosis ?? Notable History: Thyroid disease, HLD, morbid obesity, DM Past Medical History: Diagnosis Date ??? Thyroid disease Past Surgical History: Procedure Laterality Date ??? SECTION Precautions (Including Weight-Bearing): Fall risk, Contact precautions: COVID, and Airborne precautions: COVID Caregiver Present for Session (Yes or No): No SUBJECTIVE: Patient Comment: I can do whatever you want me to do. Pain Assessment: Pre-therapy pain level: 0 / 10 Pain location: No pain - Location N/A Pain intervention(s): No pain - Intervention N/A Post-therapy pain level: 0 / 10 Pain scale used: 0-10 SCALE OBJECTIVE: Appearance: Presentation upon OT arrival: Patient Supine with head of bed elevated Presentation upon OT departure: Patient Sitting in bedside recliner Bed / chair alarm in place and activated upon OT departure: No Call light within arms reach of patient at end of session: Yes Completed patient handoff and notified [employer] / RN, name: Patricia, of patient's location and functional status upon completion of session Vital Signs: Heart rate at rest: 80 bpm SPO2 at rest: 93 % on 3L Heart rate with activity: 95 bpm SPO2 with activity: 95 % on 6L Cognitive / Perceptual Assessment: PATIENT ORIENTED TO: Person, Place, Situation, and Time PATIENT NOT ORIENTED TO: None FOLLOWING COMMANDS: Two step commands 100% COMMUNICATION: WFL UE ROM / Strength / Coordination: (A)ROM - Right: WFL Strength - Right: 4/5 (A)ROM - Left: WFL Strength - Left: 4/5 Hand Dominance: Right Aircraft Ordnance Technician Strength (Right) Good Aircraft Ordnance Technician Strength (Left): Good Right Serial Opposition: Intact Left Serial Opposition: Intact Balance: Static sitting balance: Good, supported, sitting on EOB Dynamic sitting balance: Good, supported, sitting on EOB Mobility / Transfers: Bed mobility (Components & Assistance): Supine to sit-Supervision Transfer(s): Sit to stand from EOB/stand to sit to bedside recliner-Supervision using wheeled walker EOB to bedside recliner-Supervision using wheeled walker Activities of Daily Living / Living Skills: UE dressing: Patient completed upper body dressing of Hospital gown as robe while Sitting in bedside chair / recliner with overall Set-up / clean-up assistance. Patient required assistance for set-up of items. Lower Body Dressing: Patient completed lower body dressing of Underwear while Sitting in bedside chair / recliner with overall Supervision assistance. Patient required assistance for safety. Footwear: Patient completed footwear of Sock(s) while Sitting in bedside chair / recliner with overall Supervision assistance. Patient required assistance for safety ASSESSMENT: Rehab Potential (Prognosis): good Problem List: Patient has impairments including: Decreased balance, Decreased mobility, Decreased endurance, Long-standing deficits and Decreased ADL independence. Barriers to Discharge: Decreased endurance PLAN: OT Discharge Recommendations this date: Location: Home with family Supervision: Intermittent Follow-up therapy recommendations: Home health OT Frequency of therapy: 5-7 times / week Intervention / Education needs: ADL training, Compensatory ADL strategies, Adaptive equipment education, Durable medical equipment education, Balance activities, Functional transfer training, Safety education, Precautions education, Pursed lip breathing / Relaxation techniques, UE home exercise prog luke education and Energy conservation techniques Education provided: Patient has been educated on Role of OT, OT plan of care, ADL training and Functional transfer training. Individual(s) verbalized understanding. Short Term Goals / Care Plan: Multi-Disciplinary Problems (from Occupational Therapy) Active Problems Problem: OT Misc Start Date: 04/30/21 Goal Start Date Expected End Date End Date OT STG - Mis 1 04/30/21 05/16/21 -- Goal Details: Patient will complete bathing with supervision assist one time (Interim completed 05/09/21; Continue goal) Goal Start Date Expected End Date End Date OT STG - Misc 2 04/30/21 05/16/21 -- Goal Details: Patient will complete UE dressing Independently one time with equipment as needed (Interim completed 05/09/21; Continue goal) Goal Start Date Expected End Date End Date OT STG - Mis 3 04/30/21 05/16/21 -- Goal Details: Patient will complete LE dressing of underwear and socks Independently one time with equipment as needed (Interim completed 05/09/21; Continue goal) Goal Start Date Expected End Date End Date OT STG - Mis 4 04/30/21 05/16/21 -- Goal Details: Patient will complete toilet transfer Independently one time with equipment as needed(Interim completed 05/09/21; Continue goal) Goal Start Date Expected End Date End Date OT [facility] - Mis 5 04/30/21 05/16/21 -- Goal Details: Patient will complete oxidative muscle exercises with min verbal cues to improve tolerance for ADLs one time (Interim completed 05/09/21; Continue goal) Goal Start Date Expected End Date End Date OT [facility] - Mis 6 04/30/21 05/16/21 -- Goal Details: Patient will verbalize/demonstrate 4-5 energy conservation techniques independently to improve tolerance for ADLs one time (Interim completed 05/09/21; Continue goal) If this is the last note, consider this the discharge summary Ashley Wyatt OT 05/09/21 KLING MACHINE OPERATOR * Sarah Gross MD - 05/08/2021 3:16 PM CST 1. Daily Progress Hospital day: Hospital Day: 25 Chief complaint(s): Acute respiratory failure secondary to COVID-19 infection. SUBJECTIVE Interval History: Pt seen and examined. No acute events overnight. Denies fevers, chills, sweats, Cp, SOB, abd pain, NVD. Patient is doing well, no new complaints; cetirizine, 10 mg, oral, Daily enoxaparin, 40 mg, subcutaneous, Q12H [facility] guaiFENesin-dextromethorphan ER, 1 tablet, oral, BID insulin glargine, 10 Units, subcutaneous, Nightly insulin lispro, 0-4 Units, subcutaneous, Nightly insulin lispro, 0-5 Units, subcutaneous, TID with meals insulin lispro, 4 Units, subcutaneous, TID with meals levothyroxine, 75 mcg, oral, Daily - [address], 40 mg, oral, Daily ??? acetaminophen, 650 mg, 650 mg at 05/08/21 0611 ??? benzocaine-menthoL, 1 lozenge, 1 lozenge at 05/08/21 1146 ??? benzonatate, 100 mg, 100 mg at 05/08/21 0611 ??? dextrose, 15 g OR dextrose, 250 mL ??? glucagon, 1 mg ??? HYDROcodone-homatropine, 5 mL, 5 mL at 05/06/21 1641 ??? hydrOXYzine, 25 mg, 25 mg at 05/03/21 0806 ??? ondansetron ODT, 4 mg OR ondansetron, 4 mg, 4 mg at 04/15/21 2232 ??? sodium chloride, 2 spray, 2 spray at 05/03/21 2047 ??? traZODone, 50 mg, 50 mg at 04/23/21 2104 OBJECTIVE Vitals: Most Recent : Vitals: 05/08/21 0800 05/08/21 0825 05/08/21 1125 05/08/21 1200 BP: 104/65 106/65 BP Location: Left arm Left arm Patient Position: Lying Lying Pulse: 93 81 73 87 Resp: 20 18 Temp: 36.4 ??C (97.6 ??F) 36.7 ??C (98 ??F) TempSrc: Oral Oral SpO2: 93% 97% 96% 94% Weight: Height: 24hr Min/Max: Temp Min: 36.1 ??C (97 ??F) Max: 36.7 ??C (98 ??F) Pulse Min: 73 Max: 106 BP Min: 104/65 Max: 116/73 Resp Min: 18 Max: 20 SpO2 Min: 92 % Max: 98 % No intake or output data in the 24 hours ending 05/08/21 1516 Physical Exam Constitutional: Appearance: She is well-developed. She is obese. HENT: Head: Normocephalic and atraumatic. Eyes: Conjunctiva/sclera: Conjunctivae normal. Pupils: Pupils are equal, round, and reactive to light. Cardiovascular: Rate and Rhythm: Normal rate and regular rhythm. Heart sounds: Normal heart sounds. Pulmonary: Effort: Pulmonary effort is normal. Breath sounds: Normal breath sounds. No wheezing or rales. Comments: On 5L NC Abdominal: General: Bowel sounds are normal. There is no distension. Palpations: Abdomen is soft. Tenderness: There is no abdominal tenderness. There is no guarding. Musculoskeletal: General: No tenderness. Normal range of motion. Cervical back: Normal range of motion and neck supple. Skin: General: Skin is warm and dry. Neurological: Mental Status: She is alert and oriented to person, place, and time. Cranial Nerves: No cranial nerve deficit. Psychiatric: Behavior: Behavior normal. Thought Content: Thought content normal. Judgment: Judgment normal. Lab/Radiology/Diagnostic Review: Recent Results (from the past 48 hour(s)) POCT glucose Collection Time: 05/06/21 4:38 PM Result Value Ref Range Glucose, POC 180 70 - 199 mg/dL POCT glucose Collection Time: 05/06/21 8:58 PM Result Value Ref Range Glucose, POC 192 70 - 199 mg/dL POCT glucose Collection Time: 05/07/21 2:24 AM Result Value Ref Range Glucose, POC 133 70 - 199 mg/dL CBC with auto differential Collection Time: 05/07/21 4:19 AM Result Value Ref Range WBC 7.9 3.8 - 9.9 K/cumm Hgb 10.5 (L) 11.9 - 15.5 g/dL Hct 34.2 (L) 35.6 - 45.5 % Plt 197 150 - 400 K/cumm MPV 12.3 9.1 - 12.3 fL RBC 3.76 (L) 3.90 - 5.20 M/cumm MCV 91.0 81.3 - 96.4 fL MCH 27.9 27.1 - 33.3 pg MCHC 30.7 (L) 32.3 - 35.7 g/dL RDW CV 15.7 (H) 11.1 - 14.9 % RDW SD 51.7 (H) 35.7 - 48.1 fL NRBC abs 0.00 0.00 - 0.01 K/cumm Basic metabolic panel Collection Time: 05/07/21 4:19 AM Result Value Ref Range Sodium 139 135 - 145 mmol/L Potassium, pl 3.9 3.3 - 4.9 mmol/L Chloride 99 97 - 110 mmol/L CO2 30 22 - 32 mmol/L Anion gap 10 2 - 15 mmol/L BUN 13 8 - 25 mg/dL Creatinine 0.57 (L) 0.60 - 1.10 mg/dL Glucose 144 70 - 199 mg/dL Calcium 8.8 8.5 - 10.3 mg/dL Differential, auto Collection Time: 05/07/21 4:19 AM Result Value Ref Range Neutrophil abs 4.4 1.7 - 6.5 K/cumm Imm gran abs 0.0 0.0 - 0.1 K/cumm Lymphocyte abs 2.0 0.8 - 3.3 K/cumm Monocyte abs 0.5 0.2 - 0.8 K/cumm Eosinophil abs 1.0 (H) 0.0 - 0.5 K/cumm Basophil abs 0.1 0.0 - 0.1 K/cumm Neutrophil pct 55.4 % Imm gran pct 0.4 % Lymphocyte pct 25.1 % Monocyte pct 6.4 % Eosinophil pct 12.1 % Basophil pct 0.6 % eGFR Collection Time: 05/07/21 4:19 AM Result Value Ref Range eGFR 111 mL/min/1.73 m2 POCT glucose Collection Time: 05/07/21 6:24 AM Result Value Ref Range Glucose, POC 141 70 - 199 mg/dL POCT glucose Collection Time: 05/07/21 11:40 AM Result Value Ref Range Glucose, POC 258 (H) 70 - 199 mg/dL POCT glucose Collection Time: 05/07/21 5:26 PM Result Value Ref Range Glucose, POC 173 70 - 199 mg/dL POCT glucose Collection Time: 05/07/21 9:03 PM Result Value Ref Range Glucose, POC 205 (H) 70 - 199 mg/dL POCT glucose Collection Time: 05/08/21 3:08 AM Result Value Ref Range Glucose, POC 147 70 - 199 mg/dL CBC with auto differential Collection Time: 05/08/21 4:43 AM Result Value Ref Range WBC 6.6 3.8 - 9.9 K/cumm Hgb 10.2 (L) 11.9 - 15.5 g/dL Hct 33.5 (L) 35.6 - 45.5 % Plt 180 150 - 400 K/cumm MPV 12.6 (H) 9.1 - 12.3 fL RBC 3.56 (L) 3.90 - 5.20 M/cumm MCV 94.1 81.3 - 96.4 fL MCH 28.7 27.1 - 33.3 pg MCHC 30.4 (L) 32.3 - 35.7 g/dL RDW CV 15.8 (H) 11.1 - 14.9 % RDW SD 54.0 (H) 35.7 - 48.1 fL NRBC abs 0.00 0.00 - 0.01 K/cumm Basic metabolic panel Collection Time: 05/08/21 4:43 AM Result Value Ref Range Sodium 144 135 - 145 mmol/L Potassium, pl 4.0 3.3 - 4.9 mmol/L Chloride 106 97 - 110 mmol/L CO2 30 22 - 32 mmol/L Anion gap 8 2 - 15 mmol/L BUN 11 8 - 25 mg/dL Creatinine 0.48 (L) 0.60 - 1.10 mg/dL Glucose 149 70 - 199 mg/dL Calcium 9.0 8.5 - 10.3 mg/dL Differential, auto Collection Time: 05/08/21 4:43 AM Result Value Ref Range Neutrophil abs 3.7 1.7 - 6.5 K/cumm Imm gran abs 0.0 0.0 - 0.1 K/cumm Lymphocyte abs 1.6 0.8 - 3.3 K/cumm Monocyte abs 0.4 0.2 - 0.8 K/cumm Eosinophil abs 0.9 (H) 0.0 - 0.5 K/cumm Basophil abs 0.0 0.0 - 0.1 K/cumm Neutrophil pct 56.4 % Imm gran pct 0.3 % Lymphocyte pct 23.6 % Monocyte pct 6.2 % Eosinophil pct 12.9 % Basophil pct 0.6 % eGFR Collection Time: 05/08/21 4:43 AM Result Value Ref Range eGFR 118 mL/min/1.73 m2 POCT glucose Collection Time: 05/08/21 6:10 AM Result Value Ref Range Glucose, POC 134 70 - 199 mg/dL POCT glucose Collection Time: 05/08/21 11:45 AM Result Value Ref Range Glucose, POC 150 70 - 199 mg/dL ASSESSMENT/PLAN 1. Acute respiratory failure with hypoxia secondary to COVID pneumonia. Patient was initially needing Opti Flow; Patient is now on 5 L nasal cannula; continue to wean down; encourage patient to continue to use incentive spirometry. WILL ASSESS FOR HOME OXYGEN 2. COVID 19 infection. Patient completed 5 days course of IV remdesivir; IV Decadron and Baricitinib. 3. Elevated D-dimer. PE was negative for acute or chronic PE; extensive bilateral infiltrates consistent with COVID-19 appearance; most likely secondary to COVID infection; 4. Hyperlipidemia. Continue with statin; 5. Hypothyroidism. Continue Synthroid 75 mcg daily; 6. T2 DM. A1c is 7.1 on 04/17/2021. 7. Morbid obesity. BMI of 40; can benefit from weight loss; 8. Physical deconditioning secondary to infection and prolonged hospital stay; PT/OT consulted; recommend home health PT; Patient desires: Full Code MDM: Sarah Gross MD 05/08/21 3:16 PM KLING MACHINE OPERATOR * Arnie Zurita MD - 05/08/2021 11:38 AM CST Pulmonary Daily Progress Chief complaint/reason for consult: Covid 19. Interval History: O2 improved to 5 L, No chest pain Comfortable Coughing with incentive spirometer Has completed Remdesivir, decadron and Baricitinib Presenting History: 46 yo woman w hypothyroidism and BMI 44 admitted 04/14 after presenting to the ED with shortness of breath. Sx present about a week. Started w cough. No chest pain. COVID positive. also hospitalized w COVID. No pre-existing lung disease. CT chest with diffuse patchy gg infiltrates consistent w COVID. Steroids began 04/14 Remdesivir started 04/14 Strep screen + on 04/08/21 Covid 19 + pcr 04/08/21 Allergies: No Known Allergies Medications: Scheduled Meds:cetirizine, 10 mg, oral, Daily enoxaparin, 40 mg, subcutaneous, Q12H [facility] guaiFENesin-dextromethorphan ER, 1 tablet, oral, BID insulin glargine, 10 Units, subcutaneous, Nightly insulin lispro, 0-4 Units, subcutaneous, Nightly insulin lispro, 0-5 Units, subcutaneous, TID with meals insulin lispro, 4 Units, subcutaneous, TID with meals levothyroxine, 75 mcg, oral, Daily - [address], 40 mg, oral, Daily Continuous Infusions: PRN Meds:.??? acetaminophen ??? benzocaine-menthoL ??? benzonatate ??? dextrose OR dextrose ??? glucagon ??? HYDROcodone-homatropine ??? hydrOXYzine ??? ondansetron ODT OR ondansetron ??? sodium chloride ??? traZODone ROS Above review of system reviewed on 05/08/2021 Vitals: Vitals: 05/08/21 0400 05/08/21 0800 05/08/21 0825 05/08/21 1125 BP: 104/65 106/65 BP Location: Left arm Left arm Patient Position: Lying Lying Pulse: 86 81 73 Resp: 20 18 Temp: 36.4 ??C (97.6 ??F) 36.7 ??C (98 ??F) TempSrc: Oral Oral SpO2: 93% 97% 96% Weight: Height: Temp (24hrs), Av.4 ??C (97.5 ??F), Min:36.1 ??C (97 ??F), Max:36.7 ??C (98 ??F) Intake/Output Summary (Last 24 hours) at 05/08/2021 1138 Last data filed at 05/07/2021 1435 Gross per 24 hour Intake -- Output 250 ml Net -250 ml Physical Exam Vitals and nursing note reviewed. Constitutional: Appearance: She is obese. HENT: Head: Normocephalic and atraumatic. Cardiovascular: Rate and Rhythm: Normal rate and regular rhythm. Heart sounds: No murmur heard. Pulmonary: Effort: No respiratory distress. Breath sounds: No wheezing or rales. Abdominal: General: Abdomen is flat. Palpations: Abdomen is soft. Musculoskeletal: Right lower leg: No edema. Left lower leg: No edema. Skin: General: Skin is warm and dry. Neurological: Mental Status: She is alert. Psychiatric: Behavior: Behavior normal. Lab/Radiology/Diagnostic Review: Labs: Recent Labs Lab Units 05/08/21 0443 05/07/21 0419 05/06/21 0713 WBC K/cumm 6.6 7.9 6.8 HEMOGLOBIN g/dL 10.2* 10.5* 10.7* HEMATOCRIT % 33.5* 34.2* 33.9* PLATELETS K/cumm 180 197 193 NEUTROS PCT % 56.4 55.4 56.3 LYMPHS PCT % 23.6 25.1 21.5 MONOS PCT % 6.2 6.4 7.4 EOS PCT % 12.9 12.1 13.8 Recent Labs Lab Units 05/08/21 0610 05/08/21 0443 05/08/21 0308 05/07/21 0624 05/07/21 0419 05/06/21 1114 05/06/21 0713 SODIUM mmol/L -- 144 -- -- 139 -- 139 POTASSIUM PLASMA mmol/L -- 4.0 -- -- 3.9 -- 4.0 CHLORIDE mmol/L -- 106 -- -- 99 -- 99 CO2 mmol/L -- 30 -- -- 30 -- 31 ANIONGAP mmol/L -- 8 -- -- 10 -- 9 GLUCOSE mg/dL -- 149 -- -- 144 < > 143 POC GLUCOSE MONITOR mg/dL 134 -- 147 < > -- < > -- BUN SERUM mg/dL -- 11 -- -- 13 -- 10 CREATININE mg/dL -- 0.48* -- -- 0.57* -- 0.46* CALCIUM mg/dL -- 9.0 -- -- 8.8 -- 8.9 < > = values in this interval not displayed. Recent Labs Lab Units 05/03/21 2559 D DIMER ng/mL FEU 3,856* Imaging: CXR 05/03: increased bilateral infiltrates CXR 04/14 bilateral patchy ground-glass infiltrate left greater than right Other diagnostic tests: I have personally reviewed above laboratory findings, chest imaging, and diagnostic tests 05/08/2021 Assessment and Plan: COVID 19, dx 04/14, symptom onset approx 04/08/21 positive test on 04/08/2021 Acute respiratory failure Hypothyroidism BMI 44 ?? Recs: O2 as required, wean as able Once at acceptable level can evaluate for discharge to home with oxygen Incentive spirometry DVT prophylaxis Increase activity/PT Chart reviewed KLING MACHINE OPERATOR * Valentina Oates MD - 05/07/2021 3:22 PM CST General Medicine Progress Note CC: shortness of breath Interval Events: This is a 46-year-old female who was admitted to the hospital with complaint of hypoxemic respiratory failure. This is secondary to COVID pneumonia. Patient's hospital course has been complicated by acute hypoxemic respiratory failure with significant oxygen requirement. Pulmonary Medicine was consulted. Patient was initially started IV rim disc severe/Decadron/Baricitinib Has now completed a 5 day course of IV remdesivir. Also completed course of IV Decadron and Baricitinib. Patient was initially on OptiFlow with high oxygen requirement. This was done in the [facility]. Patient has now continued to wean down appropriately. Respiratory status being monitored very closely. Patient oxygen requirement has improved-however it continues to increase with activity. Subjective: Patient is doing well today. She is sitting in her chair. She is still helpful to get home this weekend. She notes that she has been able to ambulate the halls little bit today Objective: Vitals: 24hr Min/Max: Temp Min: 36.7 ??C (98.1 ??F) Max: 37.1 ??C (98.7 ??F) Pulse Min: 83 Max: 94 BP Min: 92/61 Max: 135/71 Resp Min: 18 Max: 26 SpO2 Min: 92 % Max: 100 % Most Recent: Vitals: 05/07/21 0400 05/07/21 0408 05/07/21 0820 05/07/21 1136 BP: 135/71 120/72 119/70 BP Location: Left arm Right arm Right arm Patient Position: Lying Sitting Sitting Pulse: 83 90 90 84 Resp: 18 18 20 Temp: 36.9 ??C (98.5 ??F) 36.7 ??C (98.1 ??F) 37.1 ??C (98.7 ??F) TempSrc: Oral Oral Oral SpO2: 94% 97% 94% Weight: Height: Intake/Output Summary (Last 24 hours) at 05/07/2021 1522 Last data filed at 05/07/2021 1435 Gross per 24 hour Intake -- Output 250 ml Net -250 ml Physical Exam: Physical Exam GEN: Alert. NAD HENT: Normocephalic. Atraumatic. CVS: RRR CHEST: Still has some coarse sounds, but overall improved ABD: soft. ND EXT: no edema Lab/Radiology/Diagnostic Review: Reviewed. Recent Results (from the past 24 hour(s)) POCT glucose Collection Time: 05/06/21 4:38 PM Result Value Ref Range Glucose, POC 180 70 - 199 mg/dL POCT glucose Collection Time: 05/06/21 8:58 PM Result Value Ref Range Glucose, POC 192 70 - 199 mg/dL POCT glucose Collection Time: 05/07/21 2:24 AM Result Value Ref Range Glucose, POC 133 70 - 199 mg/dL CBC with auto differential Collection Time: 05/07/21 4:19 AM Result Value Ref Range WBC 7.9 3.8 - 9.9 K/cumm Hgb 10.5 (L) 11.9 - 15.5 g/dL Hct 34.2 (L) 35.6 - 45.5 % Plt 197 150 - 400 K/cumm MPV 12.3 9.1 - 12.3 fL RBC 3.76 (L) 3.90 - 5.20 M/cumm MCV 91.0 81.3 - 96.4 fL MCH 27.9 27.1 - 33.3 pg MCHC 30.7 (L) 32.3 - 35.7 g/dL RDW CV 15.7 (H) 11.1 - 14.9 % RDW SD 51.7 (H) 35.7 - 48.1 fL NRBC abs 0.00 0.00 - 0.01 K/cumm Basic metabolic panel Collection Time: 05/07/21 4:19 AM Result Value Ref Range Sodium 139 135 - 145 mmol/L Potassium, pl 3.9 3.3 - 4.9 mmol/L Chloride 99 97 - 110 mmol/L CO2 30 22 - 32 mmol/L Anion gap 10 2 - 15 mmol/L BUN 13 8 - 25 mg/dL Creatinine 0.57 (L) 0.60 - 1.10 mg/dL Glucose 144 70 - 199 mg/dL Calcium 8.8 8.5 - 10.3 mg/dL Differential, auto Collection Time: 05/07/21 4:19 AM Result Value Ref Range Neutrophil abs 4.4 1.7 - 6.5 K/cumm Imm gran abs 0.0 0.0 - 0.1 K/cumm Lymphocyte abs 2.0 0.8 - 3.3 K/cumm Monocyte abs 0.5 0.2 - 0.8 K/cumm Eosinophil abs 1.0 (H) 0.0 - 0.5 K/cumm Basophil abs 0.1 0.0 - 0.1 K/cumm Neutrophil pct 55.4 % Imm gran pct 0.4 % Lymphocyte pct 25.1 % Monocyte pct 6.4 % Eosinophil pct 12.1 % Basophil pct 0.6 % eGFR Collection Time: 05/07/21 4:19 AM Result Value Ref Range eGFR 111 mL/min/1.73 m2 POCT glucose Collection Time: 05/07/21 6:24 AM Result Value Ref Range Glucose, POC 141 70 - 199 mg/dL POCT glucose Collection Time: 05/07/21 11:40 AM Result Value Ref Range Glucose, POC 258 (H) 70 - 199 mg/dL Assessment and Plan: Principal Problem: Pneumonia due to COVID-19 virus Active Problems: Hyperlipidemia Hypothyroidism Acute respiratory failure with hypoxia (CMS/HCC) (HCC) Elevated AST (SGOT) Dehydration :} Acute hypoxemic respiratory failure. Secondary to COVID-19 pneumonia. Worse with activity. Patient noted to have oxygen desaturation with activity. Remains on 6 L nasal cannula. Will continue to monitor closely. Patient is gradually been improving all week :}COVID-19 pneumonia. Patient has now completed 5 day course of IV remdesivir. Completed course of IV Decadron and Baricitinib. Continue to monitor respiratory status very closely. :}Cough-secondary to COVID. Will start on Hycodan, Mucinex DM :}Type 2 diabetes. Continue Lantus 10 units q.h.s.. Monitor Accu-Cheks q.a.c. q.h.s. adjust with a low-dose sliding scale as needed. :}Hypothyroidism. Continue Synthroid 75 mcg daily. :}Leukocytosis. Stabilized. Likely secondary to steroids. Monitor closely. :}Fen. Electrolytes stable. Disposition: Home when able to wean down to 2-3 L of oxygen the rest Patient has now completed course of IV Decadron, and IV Remdesevir. Medical decision making complexity: Intermediate Valentina Oates Hospitalist [phone] 13:22 PM KLING MACHINE OPERATOR * HarveyShaina mae, DE [place] - 05/07/2021 2:39 PM CST Occupational Therapy NOTE / SESSION TYPE: DAILY PROGRESS / TREATMENT Patient's Name: Shaina Huynh Age / Sex: 46 y.o. / female Room: [place] [address] : 1975 Date of service: 05/07/21 TIME IN: 1411 TIME OUT: 1444 Patient Active Problem List Diagnosis ??? Hyperlipidemia ??? Lipoprotein deficiency disorder ??? Pneumonia due to COVID-19 virus ??? Hypothyroidism ??? Prediabetes ??? Seasonal allergies ??? Acute respiratory failure with hypoxia (CMS/HCC) (HCC) ??? Elevated AST (SGOT) ??? Dehydration Past Medical History: Diagnosis Date ??? Thyroid disease Past Surgical History: Procedure Laterality Date ??? SECTION Precautions (including weight-bearing): Fall risk and Airborne precautions: COVID Subjective: I HOPE I CAN TAKE CARE OF MY SON, HE'S 5 YEARS OLD Therapy Pain: Pre-therapy pain level: 0 /10 Pain location: No pain - Location N/A Pain Intervention(s): No pain - Intervention N/A Post-therapy pain level: 0 /10 Pain scale reference: 0-10 SCALE Objective: Appearance: Presentation upon OT arrival: Patient Sitting in bedside recliner Presentation upon OT departure: Patient Sitting in bedside recliner Bed / Chair alarm in place and activated upon OT departure: None Observed Call light within arms reach of patient at end of session: Yes Completed patient handoff and notified SUPERVISOR [employer] / RN, name: LYNNE, of patient's location and functional status upon completion of session VITAL SIGNS: Heart rate at rest: 80 BPM Heart rate with activity: 78 BPM O2 saturations at rest: 95 % O2 saturations with activity: 93 % Oxygen LPM: 6L HIGH FLOW NASAL CANNULA Cognitive / Perceptual: WNL Mobility / Transfers: Transfer(s): B/S CHAIR TO/FROM [facility] WITH 2(MIN) V/CS FOR PLB WITH TASKS Living Skills / Other Activities: LE DRESSING (UNDERWEAR / PANTS) LOCATION OF LE DRESSING (UNDERWEAR / PANTS): Sitting in bedside chair / recliner TASKS COMPLETED: Underwear OVERALL ASSIST LEVEL: SUPERVISION ASSISTANCE / VERBAL CUES ADDITIONAL DOCUMENTATION: PATIENT DONNED UNDERWEAR WITH GOLD FRAME ASSEMBLER AND DEMONSTRATES GOOD DYNAMIC STANDING BALANCE WITH TASKS PUTTING ON / TAKING OFF FOOTWEAR LOCATION OF PUTTING ON / TAKING OFF FOOTWEAR: Sitting in bedside chair / recliner TASKS COMPLETED: Sock(s) OVERALL ASSIST LEVEL: SUPERVISION ASSISTANCE / VERBAL CUES ADDITIONAL DOCUMENTATION: PATIENT DONNED AND DOFFED SOCKS WITH FIGURE FOUR METHOD AND 2(MIN) V/CS FOR PLB WITH TASKS. TOILETING LOCATION: STANDING AT BEDSIDE COMMODE TASKS COMPLETED: HYGIENE MANAGEMENT OVERALL ASSIST LEVEL: SUPERVISION ASSISTANCE / VERBAL CUES ADDITIONAL DOCUMENTATION: MIN V/CS REQUIRED TO INCORPORATE PLB WITH TASKS Caregiver Present: No Education & Training Provided: Role of OT, OT plan of care, ADL training, Compensatory ADL strategies, Functional transfer training, Adaptive equipment: RECOMMENDED GOLD FRAME ASSEMBLER, Durable medical equipment: RECOMMENDED SHOWER CHAIR, Pursed lip breathing / Relaxation techniques and Energy conservationeducation Assessment: Activity tolerance / response to OT session: GOOD PARTICIPATION, GOOD MOTIVATION and RECEPTIVE TO EDUCATION / TRAINING Progress towards goals: Please refer to care plan from this date for progress towards individual goals Plan: Therapy Plan: Rehab Potential (Prognosis): good OT Recommendations This Date: Location: [place] [facility] Supervision: Intermittent Follow-up Therapy Recommendations: HHOT OT Consultation in Regards to Discharge Recommendations: N/A Frequency of therapy: 3-5 times / week If this is the last note, consider this the discharge summary MAGALI Maloney 05/07/21 Cosigned by Ludivina Plata OT at 05/07/2021 4:10 PM CRINKLING MACHINE OPERATOR KLING MACHINE OPERATOR KLING MACHINE OPERATOR * Patricio Membreno MD - 05/07/2021 9:21 AM CST Pulmonary Daily Progress Chief complaint/reason for consult: Covid 19. Interval History: Patient wean down to 6 liters/minute of oxygen. No significant cough. Patient is afebrile. Has completed Remdesivir, decadron and Baricitinib Presenting History: 46 yo woman w hypothyroidism and BMI 44 admitted 04/14 after presenting to the ED with shortness of breath. Sx present about a week. Started w cough. No chest pain. COVID positive. also hospitalized w COVID. No pre-existing lung disease. CT chest with diffuse patchy gg infiltrates consistent w COVID. Steroids began 04/14 Remdesivir started 04/14 Strep screen + on 04/08/21 Covid 19 + pcr 04/08/21 Allergies: No Known Allergies Medications: Scheduled Meds:cetirizine, 10 mg, oral, Daily enoxaparin, 40 mg, subcutaneous, Q12H DEMETRIA guaiFENesin-dextromethorphan ER, 1 tablet, oral, BID insulin glargine, 10 Units, subcutaneous, Nightly insulin lispro, 0-4 Units, subcutaneous, Nightly insulin lispro, 0-5 Units, subcutaneous, TID with meals insulin lispro, 4 Units, subcutaneous, TID with meals levothyroxine, 75 mcg, oral, Daily - [address], 40 mg, oral, Daily Continuous Infusions: PRN Meds:.??? acetaminophen ??? benzocaine-menthoL ??? benzonatate ??? dextrose OR dextrose ??? glucagon ??? HYDROcodone-homatropine ??? hydrOXYzine ??? ondansetron ODT OR ondansetron ??? sodium chloride ??? traZODone CHRISTEN Valentino review of system reviewed on 05/07/2021 Vitals: Vitals: 05/07/21 0000 05/07/21 0400 05/07/21 0408 05/07/21 0820 BP: 135/71 120/72 BP Location: Left arm Right arm Patient Position: Lying Sitting Pulse: 89 83 90 90 Resp: 18 18 Temp: 36.9 ??C (98.5 ??F) 36.7 ??C (98.1 ??F) TempSrc: Oral Oral SpO2: 94% 97% Weight: Height: Temp (24hrs), Av.8 ??C (98.3 ??F), Min:36.7 ??C (98 ??F), Max:37.1 ??C (98.7 ??F) Intake/Output Summary (Last 24 hours) at 05/07/2021920 Last data filed at 05/06/2021 1300 Gross per 24 hour Intake 520 ml Output -- Net 520 ml Physical Exam Vitals and nursing note reviewed. Constitutional: Appearance: She is obese. HENT: Head: Normocephalic and atraumatic. Nose: Nose normal. Eyes: General: No scleral icterus. Cardiovascular: Rate and Rhythm: Normal rate and regular rhythm. Heart sounds: No murmur heard. Pulmonary: Effort: No respiratory distress. Breath sounds: No wheezing or rales. Abdominal: General: Abdomen is flat. Palpations: Abdomen is soft. Musculoskeletal: Right lower leg: No edema. Left lower leg: No edema. Skin: General: Skin is warm and dry. Neurological: Mental Status: She is alert. Psychiatric: Behavior: Behavior normal. Lab/Radiology/Diagnostic Review: Labs: Recent Labs Lab Units 05/07/2141805/06/21 0713 05/05/21 1024 WBC K/cumm 7.9 6.8 7.3 HEMOGLOBIN g/dL 10.5* 10.7* 10.6* HEMATOCRIT % 34.2* 33.9* 33.7* PLATELETS K/cumm 197 193 210 NEUTROS PCT % 55.4 56.3 63.3 LYMPHS PCT % 25.1 21.5 18.1 MONOS PCT % 6.4 7.4 7.0 EOS PCT % 12.1 13.8 10.8 Recent Labs Lab Units 05/07/21 0624 05/07/21 0419 05/07/21 0224 05/06/21 1114 05/06/21 0713 05/05/21 1203 05/05/21 1024 SODIUM mmol/L -- 139 -- -- 139 -- 137 POTASSIUM PLASMA mmol/L -- 3.9 -- -- 4.0 -- 3.7 CHLORIDE mmol/L -- 99 -- -- 99 -- 97 CO2 mmol/L -- 30 -- -- 31 -- 30 ANIONGAP mmol/L -- 10 -- -- 9 -- 10 GLUCOSE mg/dL -- 144 -- -- 143 < > 210* POC GLUCOSE MONITOR mg/dL 141 -- 133 < > -- < > -- BUN SERUM mg/dL -- 13 -- -- 10 -- 11 CREATININE mg/dL -- 0.57* -- -- 0.46* -- 0.48* CALCIUM mg/dL -- 8.8 -- -- 8.9 -- 8.8 < > = values in this interval not displayed. Recent Labs Lab Units 05/03/21 1759 D DIMER ng/mL FEU 3,856* Imaging: CXR 05/03: increased bilateral infiltrates CXR 04/14 bilateral patchy ground-glass infiltrate left greater than right Other diagnostic tests: I have personally reviewed above laboratory findings, chest imaging, and diagnostic tests 05/07/2021 Assessment and Plan: COVID 19, dx 04/14, symptom onset approx 04/08/21 positive test on 04/08/2021 Acute respiratory failure Hypothyroidism BMI 44 ?? Recs: O2 as required, wean as able proning as tolerated DVT prophylaxis Dexamethasone x 10 days, completed remdesivir x5 days, completed baricitinib started 04/15, completed Monitor cbc and kidney fxn IS Increase activity/PT Chart reviewed KLING MACHINE OPERATOR * Shena Victoria, [employer] WEIGHER - 05/07/2021 8:35 AM CST Physical Therapy PT PROGRESS NOTE Shaina Huynh 46 y.o. 1975 Past Medical History: Diagnosis Date ??? Thyroid disease Past Surgical History: Procedure Laterality Date ??? SECTION Patient Active Problem List Diagnosis ??? Hyperlipidemia ??? Lipoprotein deficiency disorder ??? Pneumonia due to COVID-19 virus ??? Hypothyroidism ??? Prediabetes ??? Seasonal allergies ??? Acute respiratory failure with hypoxia (CMS/HCC) (HCC) ??? Elevated AST (SGOT) ??? Dehydration TIME IN: 08:35 TIME OUT: 09:30 SUBJECTIVE Patient stated I'm doing alright. MENTAL STATUS/ORIENTATION: Alert and oriented x4 PAIN: Pre-therapy pain level: 0/10 Pain location: NA Pain intervention: NA Post-therapy pain level/response to intervention: 0/10 OBJECTIVE PRECAUTIONS: Fall, airborne isolation COVID 19 (+) APPEARANCE/POSTURE: Patient sitting in b/s chair w/chair alarm in place and activated VITAL SIGNS: Resting heart rate: 103 Post-activity heart rate: 109 Resting O2 sat: 96% on 6L/O2 Post-activity O2 sat: 94% on 8L/O2 per RN w/activity MOBILITY DOCUMENTATION: Bed Mobility/Transfers: Bed mobility- NT Transfers- sit to/from stand from b/s chair, bench and commode w/grab bars w/SBA Gait: Patient ambulated 25'x2, 50'x1 w/BEATER DUMPER (used wh walker last 20' for safety) w/CGA w/1 LOB 2/2 slight right knee buckle TREATMENT: Ex's - sitting w/bilat LE'S LAQ's, marching, ankle pumps, hip abd/add 10 reps APPEARANCE/POSTURE (end of session): Patient sitting in b/s chair w/chair alarm in place and activated EDUCATION: Gait, transfers, strengthening, PLB/energy conservation RESPONSE TO EDUCATION: needs reinforcement and verbalizes understanding ASSESSMENT Activity tolerance/response to P.T.: Patient tolerated therapy w/c/o fatigue Barriers to learning: Physical Barriers to discharge: Decreased endurance and Stairs at home Patient continues progressing toward previously set goals which remain appropriate at this time. PLAN Patient to be seen for P.T. 3/5 times per week to address previously established deficits and goals. DISCHARGE LOCATION RECOMMENDATIONS: HOME w/suoervision assist and HHPT If this is the last note, please consider this the discharge summary. Cosigned by Hoda Rockwell PT at 05/07/2021 1:28 PM CRINKLING MACHINE OPERATOR KLING MACHINE OPERATOR KLING MACHINE OPERATOR * Valentina Oates MD - 05/06/2021 3:21 PM CST General Medicine Progress Note Interval Events: This is a 46-year-old female who was admitted to the hospital with complaint of hypoxemic respiratory failure. This is secondary to COVID pneumonia. Patient's hospital course has been complicated by acute hypoxemic respiratory failure with significant oxygen requirement. Pulmonary Medicine was consulted. Patient was initially started IV rim disc severe/Decadron/Baricitinib Has now completed a 5 day course of IV remdesivir. Also completed course of IV Decadron and Baricitinib. Patient was initially on OptiFlow with high oxygen requirement. This was done in the [facility]. Patient has now continued to wean down appropriately. Respiratory status being monitored very closely. Patient oxygen requirement has improved-however it continues to increase with activity. Subjective: Chief complaint: Shortness of breath. Patient notes that she is feeling better today. She is hope that she can get home this weekend. Shenotes that she still has a dry cough Objective: Vitals: 24hr Min/Max: Temp Min: 36.2 ??C (97.2 ??F) Max: 36.9 ??C (98.4 ??F) Pulse Min: 70 Max: 109 BP Min: 105/65 Max: 141/89 Resp Min: 20 Max: 23 SpO2 Min: 94 % Max: 98 % Most Recent: Vitals: 05/05/21 2258 05/06/21 0308 05/06/21 0825 05/06/21 1255 BP: 116/66 105/65 107/62 141/89 BP Location: Right arm Left arm Left arm Left arm Patient Position: Lying Lying Lying Sitting Pulse: 92 70 95 109 Resp: 20 22 20 23 Temp: 36.9 ??C (98.4 ??F) 36.2 ??C (97.2 ??F) 36.8 ??C (98.3 ??F) 36.7 ??C (98 ??F) TempSrc: Oral Oral Oral Oral SpO2: 94% 98% 95% 96% Weight: 121.8 kg (268 lb 9.6 oz) Height: Intake/Output Summary (Last 24 hours) at 05/06/2021 1521 Last data filed at 05/06/2021 0600 Gross per 24 hour Intake 240 ml Output 1050 ml Net -810 ml Physical Exam: Physical Exam GEN: Alert. NAD HENT: Normocephalic. Atraumatic. CVS: RRR CHEST: Coarse breath sounds bilaterally. ABD: soft. ND EXT: no edema Lab/Radiology/Diagnostic Review: Reviewed. Recent Results (from the past 24 hour(s)) POCT glucose Collection Time: 05/05/21 4:42 PM Result Value Ref Range Glucose, POC 144 70 - 199 mg/dL POCT glucose Collection Time: 05/05/21 8:39 PM Result Value Ref Range Glucose, POC 259 (H) 70 - 199 mg/dL CBC with auto differential Collection Time: 05/06/21 7:13 AM Result Value Ref Range WBC 6.8 3.8 - 9.9 K/cumm Hgb 10.7 (L) 11.9 - 15.5 g/dL Hct 33.9 (L) 35.6 - 45.5 % Plt 193 150 - 400 K/cumm MPV 12.3 9.1 - 12.3 fL RBC 3.78 (L) 3.90 - 5.20 M/cumm MCV 89.7 81.3 - 96.4 fL MCH 28.3 27.1 - 33.3 pg MCHC 31.6 (L) 32.3 - 35.7 g/dL RDW CV 15.6 (H) 11.1 - 14.9 % RDW SD 51.4 (H) 35.7 - 48.1 fL NRBC abs 0.00 0.00 - 0.01 K/cumm Basic metabolic panel Collection Time: 05/06/21 7:13 AM Result Value Ref Range Sodium 139 135 - 145 mmol/L Potassium, pl 4.0 3.3 - 4.9 mmol/L Chloride 99 97 - 110 mmol/L CO2 31 22 - 32 mmol/L Anion gap 9 2 - 15 mmol/L BUN 10 8 - 25 mg/dL Creatinine 0.46 (L) 0.60 - 1.10 mg/dL Glucose 143 70 - 199 mg/dL Calcium 8.9 8.5 - 10.3 mg/dL Differential, auto Collection Time: 05/06/21 7:13 AM Result Value Ref Range Neutrophil abs 3.8 1.7 - 6.5 K/cumm Imm gran abs 0.0 0.0 - 0.1 K/cumm Lymphocyte abs 1.5 0.8 - 3.3 K/cumm Monocyte abs 0.5 0.2 - 0.8 K/cumm Eosinophil abs 0.9 (H) 0.0 - 0.5 K/cumm Basophil abs 0.1 0.0 - 0.1 K/cumm Neutrophil pct 56.3 % Imm gran pct 0.3 % Lymphocyte pct 21.5 % Monocyte pct 7.4 % Eosinophil pct 13.8 % Basophil pct 0.7 % eGFR Collection Time: 05/06/21 7:13 AM Result Value Ref Range eGFR 119 mL/min/1.73 m2 POCT glucose Collection Time: 05/06/21 11:14 AM Result Value Ref Range Glucose, POC 272 (H) 70 - 199 mg/dL Assessment and Plan: Principal Problem: Pneumonia due to COVID-19 virus Active Problems: Hyperlipidemia Hypothyroidism Acute respiratory failure with hypoxia (CMS/HCC) (HCC) Elevated AST (SGOT) Dehydration 1. Acute hypoxemic respiratory failure. Secondary to COVID-19 pneumonia. Worse with activity. Patient noted to have oxygen desaturation with activity. Remains on 8 L nasal cannula. Will continue to monitor closely. 2. COVID-19 pneumonia. Patient has now completed 5 day course of IV remdesivir. Completed course ofIV Decadron and Baricitinib. Continue to monitor respiratory status very closely. 3. Cough-secondary to COVID. Will start on Hycodan, Mucinex DM 4. Type 2 diabetes. Continue Lantus 10 units q.h.s.. Monitor Accu-Cheks q.a.c. q.h.s. adjust with alow-dose sliding scale as needed. 5. Hypothyroidism. Continue Synthroid 75 mcg daily. 6. Leukocytosis. Could be from de marginalization from steroids. Monitor closely. 7. Fen. Electrolytes stable. Disposition: Home when able to wean down to 2-3 L of oxygen the rest Patient has now completed course of IV Decadron, and IV Remdesevir. Medical decision making complexity: Intermediat Valentina Oates Hospitalist [phone] 13:21 PM KLING MACHINE OPERATOR * Johnny Salgado MD - 05/06/2021 12:04 PM CST Pulmonary Daily Progress Chief complaint/reason for consult: Covid 19. Interval History: Pt continues to require 8 lpm oxygen 75% fio2 With sat of 95% Continued cough No chest pain afebrile Denies edema Improving d dimer as of 05/03 dvt prophylaxis with lovenox based on BMI Has completed Remdesivir, decadron and Baricitinib Presenting History: 46 yo woman w hypothyroidism and BMI 44 admitted 04/14 after presenting to the ED with shortness of breath. Sx present about a week. Started w cough. No chest pain. COVID positive. also hospitalized w COVID. No pre-existing lung disease. CT chest with diffuse patchy gg infiltrates consistent w COVID. Steroids began 04/14 Remdesivir started 04/14 Strep screen + on 04/08/21 Covid 19 + pcr 04/08/21 Allergies: No Known Allergies Medications: Scheduled Meds:cetirizine, 10 mg, oral, Daily enoxaparin, 40 mg, subcutaneous, Q12H DEMETRIA insulin glargine, 10 Units, subcutaneous, Nightly insulin lispro, 0-4 Units, subcutaneous, Nightly insulin lispro, 0-5 Units, subcutaneous, TID with meals insulin lispro, 4 Units, subcutaneous, TID with meals levothyroxine, 75 mcg, oral, Daily - [address], 40 mg, oral, Daily Continuous Infusions: PRN Meds:.??? acetaminophen ??? benzocaine-menthoL ??? benzonatate ??? dextrose OR dextrose ??? glucagon ??? hydrOXYzine ??? ondansetron ODT OR ondansetron ??? sodium chloride ??? traZODone ROS Above review of system reviewed on 05/06/2021 Vitals: Vitals: 05/05/21 1900 05/05/21 2258 05/06/21 0308 05/06/21 0825 BP: 130/70 116/66 105/65 107/62 BP Location: Left arm Right arm Left arm Left arm Patient Position: HOB 30 degrees Lying Lying Lying Pulse: 95 92 70 95 Resp: 20 20 22 20 Temp: 36.6 ??C (97.8 ??F) 36.9 ??C (98.4 ??F) 36.2 ??C (97.2 ??F) 36.8 ??C (98.3 ??F) TempSrc: Oral Oral Oral Oral SpO2: 95% 94% 98% 95% Weight: 121.8 kg (268 lb 9.6 oz) Height: Temp (24hrs), Av.6 ??C (97.9 ??F), Min:36.2 ??C (97.2 ??F), Max:36.9 ??C (98.4 ??F) Intake/Output Summary (Last 24 hours) at 05/06/2021 1204 Last data filed at 05/06/2021 0600 Gross per 24 hour Intake 240 ml Output 1050 ml Net -810 ml Physical Exam Vitals and nursing note reviewed. Constitutional: Appearance: She is obese. HENT: Head: Normocephalic and atraumatic. Nose: Nose normal. Eyes: General: No scleral icterus. Cardiovascular: Rate and Rhythm: Normal rate and regular rhythm. Heart sounds: No murmur heard. Pulmonary: Effort: No respiratory distress. Breath sounds: No wheezing or rales. Abdominal: General: Abdomen is flat. Palpations: Abdomen is soft. Musculoskeletal: Right lower leg: No edema. Left lower leg: No edema. Skin: General: Skin is warm and dry. Neurological: Mental Status: She is alert. Psychiatric: Behavior: Behavior normal. Lab/Radiology/Diagnostic Review: Labs: Recent Labs Lab Units 05/06/21 0713 05/05/21 1024 05/04/21 1031 WBC K/cumm 6.8 7.3 8.2 HEMOGLOBIN g/dL 10.7* 10.6* 10.9* HEMATOCRIT % 33.9* 33.7* 35.0* PLATELETS K/cumm 193 210 213 NEUTROS PCT % 56.3 63.3 67.9 LYMPHS PCT % 21.5 18.1 14.5 MONOS PCT % 7.4 7.0 7.6 EOS PCT % 13.8 10.8 9.0 Recent Labs Lab Units 05/06/21 1114 05/06/21 0713 05/05/21 2039 05/05/21 1203 05/05/21 1024 05/04/21 1336 05/04/21 1031 SODIUM mmol/L -- 139 -- -- 137 -- 139 POTASSIUM PLASMA mmol/L -- 4.0 -- -- 3.7 -- 4.1 CHLORIDE mmol/L -- 99 -- -- 97 -- 100 CO2 mmol/L -- 31 -- -- 30 -- 30 ANIONGAP mmol/L -- 9 -- -- 10 -- 9 GLUCOSE mg/dL -- 143 -- -- 210* < > 195 POC GLUCOSE MONITOR mg/dL 272* -- 259* < > -- < > -- BUN SERUM mg/dL -- 10 -- -- 11 -- 11 CREATININE mg/dL -- 0.46* -- -- 0.48* -- 0.54* CALCIUM mg/dL -- 8.9 -- -- 8.8 -- 8.8 < > = values in this interval not displayed. Recent Labs Lab Units 05/03/21 1759 04/30/21 0458 D DIMER ng/mL FEU 3,856* 5,386* CRP mg/L -- 40.6* Imaging: CXR 05/03: increased bilateral infiltrates CXR 04/14 bilateral patchy ground-glass infiltrate left greater than right Other diagnostic tests: I have personally reviewed above laboratory findings, chest imaging, and diagnostic tests 05/06/2021 Assessment and Plan: COVID 19, dx 04/14, symptom onset approx 04/08/21 positive test on 04/08/2021 Acute respiratory failure Hypothyroidism BMI 44 ?? Recs: O2 as required, wean as able Try self proning today given increase oxygen needs DVT prophylaxis Dexamethasone x 10 days, completed remdesivir x5 days, completed baricitinib started 04/15, completed Monitor cbc and kidney fxn IS Increase activity/PT Chart reviewed KLING MACHINE OPERATOR * Gaby Pedraza, RD - 05/06/2021 10:23 AM CST Nutrition Assessment Reason for Assessment: Follow Up Encounter Date: 05/06/21 10:23 AM Nutrition Assessment and Plan: Patient is a 46 y.o. female. Admit Dx: PNEUMONIA DUE TO COVID-19. Admitted on 04/14/2021, current LOS is 22 days. Continues to be on isolation for COVID19. Completed course of Remdesivir, Decadron, and Baricitinib. Continues to require supplemental O2 via NC (8-10L per pulmonology note). Pulmonology recommending pt self prone. Pt continues to tolerate 2000kcal consistent CHO diet w good po intakes (100% of most meals) and appears to be drinking Ensure High PRO well. Glucose 132-259 over the last 24hr. No N/V/D/C recorded. GI WNL. Skin: +rash to R buttock, evolving. Per chart review pt w ~ 4kgWt loss since 04/25 (Wt 125.8kg). Likely fluid status changes as pt w negative 6.6L fluid balance since 04/22. Will continue 2000kcal consistent CHO diet and Ensure High PRO tid due to increased nutrition needs. Current diet order: Adult Diet Special; Consistent Carb 2000 armen Pt intake is adequate. PO intakes: 100% x 9; 75% x 2; 50% x 1 Nutrition Diagnosis 1: Altered nutrition-related laboratory values Related to: Physiologic issue (endocrine dysfunction) Evidenced by: Lab abnormality (Hemoglobin A1C= 7.1. Recently elevated Glucose Labs) Nutrition Diagnosis 2: Increased nutrient needs (protein)Related to: Physiologic issueEvidenced by:Other (comment) (COVID-19) ?? Interventions: Other (comment) (continue 2000kcal consistent CHO diet w Ensure High PRO tid) ?? Monitoring and Evaluation: Appetite,Plan of care,Labs,Blood glucoses,PO intake,Discharge plans,Weight changes,Hydration status,I/O,Supplement tolerance ?? Goals: Adequate nutrition to meet estimated needs by next assessment,Oral intake to meet 75% estimated nutritional needs by next assessment,Tolerance of medical food supplement by next assessment Estimated needs: ?? Total Kcal/kg Estimated Needs : 2193.05 based on Kcal/k. Type of Weight Used for Estimated Kcals: Current ?? Total Protein Estimated Needs (gm): 121.84 Protein Needs Based on g/k.0 Type of Weight Used for Estimated Protein : Current. ?? Estimated Fluid Needs ?? Type of Weight Used for Estimated Fluid Needs: Current ?? Fluid Needs Based on : 1 ml/kcal ?? Total Fluid Estimated Needs: 2193.05 Objective Anthropometrics Weight: 121.8 kg (268 lb 9.6 oz) Admission Weight : 125 kg Weight Change: -3.94 kg (-8.70 lbs) IBW/kg (Calculated) : 63.5 kg Height: 172.7 cm (5' 7.99 ) Weight in (lb) to have BMI = 25: 164 BMI (Calculated): 40.8 BMI Classification: BMI > or equal to 40.0 Class III 3 Day I/O Summary 05/04 1900 - 05/06 659 In: 720 [P.O.:720] Out: 1050 [Urine:1050] Temp: 36.8 ??C (98.3 ??F) Past Medical History: Diagnosis Date ??? Thyroid disease Medications and Lab Review: Scheduled Meds: cetirizine, 10 mg, oral, Daily enoxaparin, 40 mg, subcutaneous, Q12H DEMETRIA insulin glargine, 10 Units, subcutaneous, Nightly insulin lispro, 0-4 Units, subcutaneous, Nightly insulin lispro, 0-5 Units, subcutaneous, TID with meals insulin lispro, 4 Units, subcutaneous, TID with meals levothyroxine, 75 mcg, oral, Daily - [address], 40 mg, oral, Daily Continuous Infusions: Sodium Date Value Ref Range Status 05/06/2021 139 135 - 145 mmol/L Final Potassium, pl Date Value Ref Range Status 05/06/2021 4.0 3.3 - 4.9 mmol/L Final BUN Date Value Ref Range Status 05/06/2021 10 8 - 25 mg/dL Final Creatinine Date Value Ref Range Status 05/06/2021 0.46 (L) 0.60 - 1.10 mg/dL Final Calcium Date Value Ref Range Status 05/06/2021 8.9 8.5 - 10.3 mg/dL Final Lab Results Component Value Date HGBA1C 7.1 (H) 04/17/2021 Lab Results Component Value Date GLUCOSE 143 05/06/2021 GLUCOSE 259 (H) 05/05/2021 GLUCOSE 144 05/05/2021 GLUCOSE 132 05/05/2021 GLUCOSE 210 (H) 05/05/2021 GLUCOSE 142 05/05/2021 GLUCOSE 230 (H) 05/04/2021 GLUCOSE 195 05/04/2021 Nursing Assessment: Last BM Date: 05/05/21 Bowel Sounds (All Quadrants): Active Carlos Scale Score: 21 Skin Integrity: Bruising,Redness Diet Instructions Dietitian recommends consistent carbohydrate diet on discharge. -Read the nutrition facts label on packages for serving size and eat 60-75 grams of carbohydrates per meal. Eat 3 meals per day, try to eat at regular times. Limit concentrated sweets/desserts, cookies, cake, candy, ice cream, and sweetened beverages (regular soda, lemonade, gatorade, and sweet tea). Monitor blood sugars and take medications as directed by your doctor. Additional resources available from the [place] [employer] can be found at www.diabetes.org/nutrition -Eat a variety of healthy foods from all the food groups. Eat fruits, vegetables, whole grains, andfat-free or low-fat dairy foods. Whole grains include whole-wheat breads, cereals, pasta, and brownrice. Choose lean meats, poultry (chicken and turkey), fish, beans, eggs, and nuts. A healthy meal plan is low in unhealthy fats, salt, and added sugar. Healthy fats include olive oil and canola oil.Recommend to avoid sugary drinks like lemonade, regular soda, gatorade, and sweet tea. Additional resources are available online from the Academy of [employer] and Dietetics at www.eatright.org Drink Ensure High Protein or Glucerna 1-2 times daily to promote adequate Calorie/Protein intakes. Please call the dietitian's office at [phone] if you have questions about nutrition. If you would like to see our outpatient dietitian please have your physician fax a referral to [phone], and you may call [phone] to make an appointment. Nutrition Follow-Up : 05/13/[address],LD KLING MACHINE OPERATOR * Laura Chung MD - 05/05/2021 2:23 PM CST General Medicine Progress Note Interval Events: This is a 46-year-old female who was admitted to the hospital with complaint of hypoxemic respiratory failure. This is secondary to COVID pneumonia. Patient's hospital course has been complicated by acute hypoxemic respiratory failure with significant oxygen requirement. Pulmonary Medicine was consulted. Patient was initially started IV rim disc severe/Decadron/Baricitinib Has now completed a 5 day course of IV remdesivir. Also completed course of IV Decadron and Baricitinib. Patient was initially on OptiFlow with high oxygen requirement. This was done in the [facility]. Patient has now continued to wean down appropriately. Respiratory status being monitored very closely. Patient oxygen requirement has improved-however it continues to increase with activity. Subjective: Chief complaint: Shortness of breath. No new complaints noted. Objective: Vitals: 24hr Min/Max: Temp Min: 36.8 ??C (98.2 ??F) Max: 37.6 ??C (99.7 ??F) Pulse Min: 88 Max: 109 BP Min: 102/80 Max: 133/67 Resp Min: 18 Max: 23 SpO2 Min: 91 % Max: 97 % Most Recent: Vitals: 05/04/21 2005 05/04/21 2313 05/05/21 0455 05/05/21 0820 BP: 113/65 104/60 102/80 119/66 BP Location: Left arm Right arm Left arm Right arm Patient Position: Lying Lying Lying Lying Pulse: 104 94 100 88 Resp: 20 23 20 22 Temp: 36.8 ??C (98.3 ??F) 37.6 ??C (99.7 ??F) 36.8 ??C (98.2 ??F) 36.9 ??C (98.4 ??F) TempSrc: Oral Oral Oral Oral SpO2: 92% 93% 95% 93% Weight: Height: Intake/Output Summary (Last 24 hours) at 05/05/2021 0943 Last data filed at 05/04/2021 1900 Gross per 24 hour Intake 240 ml Output 700 ml Net -460 ml Physical Exam: Physical Exam GEN: Alert. NAD HENT: Normocephalic. Atraumatic. CVS: RRR CHEST: Coarse breath sounds bilaterally. ABD: soft. ND EXT: no edema Lab/Radiology/Diagnostic Review: Reviewed. Recent Results (from the past 24 hour(s)) CBC with auto differential Collection Time: 05/04/21 10:31 AM Result Value Ref Range WBC 8.2 3.8 - 9.9 K/cumm Hgb 10.9 (L) 11.9 - 15.5 g/dL Hct 35.0 (L) 35.6 - 45.5 % Plt 213 150 - 400 K/cumm MPV 12.5 (H) 9.1 - 12.3 fL RBC 3.87 (L) 3.90 - 5.20 M/cumm MCV 90.4 81.3 - 96.4 fL MCH 28.2 27.1 - 33.3 pg MCHC 31.1 (L) 32.3 - 35.7 g/dL RDW CV 16.0 (H) 11.1 - 14.9 % RDW SD 52.8 (H) 35.7 - 48.1 fL NRBC abs 0.00 0.00 - 0.01 K/cumm Basic metabolic panel Collection Time: 05/04/21 10:31 AM Result Value Ref Range Sodium 139 135 - 145 mmol/L Potassium, pl 4.1 3.3 - 4.9 mmol/L Chloride 100 97 - 110 mmol/L CO2 30 22 - 32 mmol/L Anion gap 9 2 - 15 mmol/L BUN 11 8 - 25 mg/dL Creatinine 0.54 (L) 0.60 - 1.10 mg/dL Glucose 195 70 - 199 mg/dL Calcium 8.8 8.5 - 10.3 mg/dL Differential, auto Collection Time: 05/04/21 10:31 AM Result Value Ref Range Neutrophil abs 5.6 1.7 - 6.5 K/cumm Imm gran abs 0.0 0.0 - 0.1 K/cumm Lymphocyte abs 1.2 0.8 - 3.3 K/cumm Monocyte abs 0.6 0.2 - 0.8 K/cumm Eosinophil abs 0.7 (H) 0.0 - 0.5 K/cumm Basophil abs 0.0 0.0 - 0.1 K/cumm Neutrophil pct 67.9 % Imm gran pct 0.5 % Lymphocyte pct 14.5 % Monocyte pct 7.6 % Eosinophil pct 9.0 % Basophil pct 0.5 % eGFR Collection Time: 05/04/21 10:31 AM Result Value Ref Range eGFR 113 mL/min/1.73 m2 Pro B-type natriuretic peptide Collection Time: 05/04/21 10:31 AM Result Value Ref Range NT-proBNP 19 <=300 pg/mL POCT glucose Collection Time: 05/04/21 1:36 PM Result Value Ref Range Glucose, POC 116 70 - 199 mg/dL POCT glucose Collection Time: 05/04/21 4:58 PM Result Value Ref Range Glucose, POC 175 70 - 199 mg/dL POCT glucose Collection Time: 05/04/21 8:35 PM Result Value Ref Range Glucose, POC 230 (H) 70 - 199 mg/dL POCT glucose Collection Time: 05/05/21 6:23 AM Result Value Ref Range Glucose, POC 142 70 - 199 mg/dL Assessment and Plan: Principal Problem: Pneumonia due to COVID-19 virus Active Problems: Hyperlipidemia Hypothyroidism Acute respiratory failure with hypoxia (CMS/HCC) (HCC) Elevated AST (SGOT) Dehydration 1. Acute hypoxemic respiratory failure. Secondary to COVID-19 pneumonia. Worse with activity. Patient noted to have oxygen desaturation with activity. Remains on 9-10 L nasal cannula. Will continue to monitor closely. 2. COVID-19 pneumonia. Patient has now completed 5 day course of IV remdesivir. Completed course ofIV Decadron and Baricitinib. Continue to monitor respiratory status very closely. 3. Type 2 diabetes. Continue Lantus 10 units q.h.s.. Monitor Accu-Cheks q.a.c. q.h.s. adjust with alow-dose sliding scale as needed. 4. Hypothyroidism. Continue Synthroid 75 mcg daily. 5. Leukocytosis. Could be from de marginalization from steroids. Monitor closely. 6. Fen. Electrolytes stable. Disposition: Patient has now completed course of IV Decadron, and IV Remdesevir. Medical decision making complexity: Intermediate Laura Chung MD Hospitalist [phone] :43 AM KLING MACHINE OPERATOR * Shaina Ochoa COTA - 05/05/2021 12:11 PM CST Occupational Therapy NOTE / SESSION TYPE: DAILY PROGRESS / TREATMENT Patient's Name: Shaina Narda Huynh Age / Sex: 46 y.o. / female Room: [place] [address] : 1975 Date of service: 05/05/21 TIME IN: 1120 TIME OUT: 1208 Patient Active Problem List Diagnosis ??? Hyperlipidemia ??? Lipoprotein deficiency disorder ??? Pneumonia due to COVID-19 virus ??? Hypothyroidism ??? Prediabetes ??? Seasonal allergies ??? Acute respiratory failure with hypoxia (CMS/HCC) (HCC) ??? Elevated AST (SGOT) ??? Dehydration Past Medical History: Diagnosis Date ??? Thyroid disease Past Surgical History: Procedure Laterality Date ??? SECTION Precautions (including weight-bearing): Fall risk, Bed / chair alarm, Cardiac precautions and Airborne precautions: COVID Subjective: I WISH I COULD STOP COUGHING' Therapy Pain: Pre-therapy pain level: 2 /10 Pain location: HEADACHE Pain Intervention(s): RN Notified and Pain medication administered during session Post-therapy pain level: 2 /10 Pain scale reference: 0-10 SCALE Objective: Appearance: Presentation upon OT arrival: Patient Supine with head of bed elevated Presentation upon OT departure: Patient Supine with head of bed elevated Bed / Chair alarm in place and activated upon OT departure: Yes Call light within arms reach of patient at end of session: Yes Completed patient handoff and notified SU[employer] / RN, name: LYNNE, of patient's location and functional status upon completion of session VITAL SIGNS: Heart rate at rest: 92 BPM Heart rate with activity: 114 BPM O2 saturations at rest: 93 % O2 saturations with activity: 87 %- PROGRESSED TO 90% WITH PLB AND ENERGY CONSERVATION Oxygen LPM: 6L NASAL CANNULA Cognitive / Perceptual: WNL Mobility / Transfers: Bed Mobility: ROLLING BILATERALLY SPV WITH 2(MIN) V/CS FOR PLB AND ENERGY CONSERVATION Transfer(s): DECLINED STATING MY OXYGEN DROPS Living Skills / Other Activities: SHOWER / BATHE SELF TYPE OF BATHING: SPONGEBATHING LOCATION OF SHOWER / BATHE SELF: Supine with head of bed elevated TASKS COMPLETED: ALL COMPONENTS COMPONENTS THAT REQUIRED ASSISTANCE (IF APPLICABLE): BILATERAL FEET OVERALL ASSIST LEVEL: PARTIAL / MODERATE ASSISTANCE: LESS THAN HALF (1% - 49%) ADAPTIVE EQUIPMENT (IF APPLICABLE): no assistive device ADDITIONAL DOCUMENTATION: PATIENT REQUIRED 2(MIN ) V/CS FOR PLB WITH TASKS \ TOILETING LOCATION: BEDPAN TASKS COMPLETED: HYGIENE MANAGEMENT OVERALL ASSIST LEVEL: SET-UP / CLEAN-UP ASSISTANCE ADDITIONAL DOCUMENTATION: PATIENT CLEANED FRONT AND REAR CANDIE AREA FROM BED LEVEL GROOMING TASKS (INCLUDING ORAL HYGIENE) LOCATION OF GROOMING TASKS: Supine with head of bed elevated TASKS COMPLETED: APPLYING DEODORANT OVERALL ASSIST LEVEL: SET-UP / CLEAN-UP ASSISTANCE ADDITIONAL DOCUMENTATION: N/A Caregiver Present: No Education & Training Provided: Role of OT, OT plan of care, Compensatory ADL strategies, Bed mobility training, Pursed lip breathing / Relaxation techniques and Energy conservation education Assessment: Activity tolerance / response to OT session: GOOD PARTICIPATION, GOOD MOTIVATION, RECEPTIVE TO EDUCATION / TRAINING and FAIR TOLERANCE Progress towards goals: Please refer to care plan from this date for progress towards individual goals Plan: Therapy Plan: Rehab Potential (Prognosis): good OT Recommendations This Date: Location: Home [facility] Supervision: Intermittent Follow-up Therapy Recommendations: HHOT OT Consultation in Regards to Discharge Recommendations: N/A Frequency of therapy: 3-5 times / week If this is the last note, consider this the discharge summary MAGALI Maloney 05/05/21 Cosigned by Ashley Wyatt OT at 05/05/2021 4:24 PM CRINKLING MACHINE OPERATOR KLING MACHINE OPERATOR KLING MACHINE OPERATOR * Johnny Salgado MD - 05/05/2021 11:21 AM CST Pulmonary Daily Progress Chief complaint/reason for consult: Covid 19. Interval History: Pt continues to require 8 lpm oxygen 75% fio2 With sat of 93% Continued cough No chest pain afebrile Denies edema Improving d dimer dvt prophylaxis with lovenox based on BMI Has completed Remdesivir, decadron and Baricitinib Presenting History: 46 yo woman w hypothyroidism and BMI 44 admitted 04/14 after presenting to the ED with shortness of breath. Sx present about a week. Started w cough. No chest pain. COVID positive. also hospitalized w COVID. No pre-existing lung disease. CT chest with diffuse patchy gg infiltrates consistent w COVID. Steroids began 04/14 Remdesivir started 04/14 Strep screen + on 10/12/21 Covid 19 + pcr 04/08/21 Allergies: No Known Allergies Medications: Scheduled Meds:cetirizine, 10 mg, oral, Daily enoxaparin, 40 mg, subcutaneous, Q12H DEMETRIA insulin glargine, 10 Units, subcutaneous, Nightly insulin lispro, 0-4 Units, subcutaneous, Nightly insulin lispro, 0-5 Units, subcutaneous, TID with meals insulin lispro, 4 Units, subcutaneous, TID with meals levothyroxine, 75 mcg, oral, Daily - [address], 40 mg, oral, Daily Continuous Infusions: PRN Meds:.??? acetaminophen ??? benzocaine-menthoL ??? benzonatate ??? dextrose OR dextrose ??? glucagon ??? hydrOXYzine ??? ondansetron ODT OR ondansetron ??? sodium chloride ??? traZODone ROS Above review of system reviewed on 05/05/2021 Vitals: Vitals: 05/04/21 2005 05/04/21 2313 05/05/21 0455 05/05/21 0820 BP: 113/65 104/60 102/80 119/66 BP Location: Left arm Right arm Left arm Right arm Patient Position: Lying Lying Lying Lying Pulse: 104 94 100 88 Resp: 20 22 Temp: 36.8 ??C (98.3 ??F) 37.6 ??C (99.7 ??F) 36.8 ??C (98.2 ??F) 36.9 ??C (98.4 ??F) TempSrc: Oral Oral Oral Oral SpO2: 92% 93% 95% 93% Weight: Height: Temp (24hrs), Av ??C (98.6 ??F), Min:36.8 ??C (98.2 ??F), Max:37.6 ??C (99.7 ??F) Intake/Output Summary (Last 24 hours) at 05/05/2021 1121 Last data filed at 05/05/2021 1035 Gross per 24 hour Intake 480 ml Output 700 ml Net -220 ml Physical Exam Vitals and nursing note reviewed. Constitutional: Appearance: She is obese. HENT: Head: Normocephalic and atraumatic. Nose: Nose normal. Eyes: General: No scleral icterus. Cardiovascular: Rate and Rhythm: Normal rate and regular rhythm. Heart sounds: No murmur heard. Pulmonary: Effort: No respiratory distress. Breath sounds: No wheezing or rales. Abdominal: General: Abdomen is flat. Palpations: Abdomen is soft. Musculoskeletal: Right lower leg: No edema. Left lower leg: No edema. Skin: General: Skin is warm and dry. Neurological: Mental Status: She is alert. Psychiatric: Behavior: Behavior normal. Lab/Radiology/Diagnostic Review: Labs: Recent Labs Lab Units 05/05/21 1024 05/04/21 1031 05/03/21 0920 WBC K/cumm 7.3 8.2 11.0* HEMOGLOBIN g/dL 10.6* 10.9* 10.8* HEMATOCRIT % 33.7* 35.0* 34.7* PLATELETS K/cumm 210 213 222 NEUTROS PCT % 63.3 67.9 77.7 LYMPHS PCT % 18.1 14.5 10.8 MONOS PCT % 7.0 7.6 5.8 EOS PCT % 10.8 9.0 5.1 Recent Labs Lab Units 05/05/21 1024 05/05/21 0623 05/04/21 2035 05/04/21 1336 05/04/21 1031 05/03/21 1129 05/03/21 0920 SODIUM mmol/L 137 -- -- -- 139 -- 136 POTASSIUM PLASMA mmol/L 3.7 -- -- -- 4.1 -- 3.9 CHLORIDE mmol/L 97 -- -- -- 100 -- 99 CO2 mmol/L 30 -- -- -- 30 -- 26 ANIONGAP mmol/L 10 -- -- -- 9 -- 11 GLUCOSE mg/dL 210* -- -- -- 195 < > 261* POC GLUCOSE MONITOR mg/dL -- 142 230* < > -- < > -- BUN SERUM mg/dL 11 -- -- -- 11 -- 10 CREATININE mg/dL 0.48* -- -- -- 0.54* -- 0.44* CALCIUM mg/dL 8.8 -- -- -- 8.8 -- 8.9 < > = values in this interval not displayed. Recent Labs Lab Units 05/03/21 1759 04/30/21 0458 D DIMER ng/mL FEU 3,856* 5,386* CRP mg/L -- 40.6* Imaging: CXR 05/03: increased bilateral infiltrates CXR 04/14 bilateral patchy ground-glass infiltrate left greater than right Other diagnostic tests: I have personally reviewed above laboratory findings, chest imaging, and diagnostic tests 05/05/2021 Assessment and Plan: COVID 19, dx 04/14, symptom onset approx 04/08/21 positive test on 04/08/2021 Acute respiratory failure Hypothyroidism BMI 44 ?? Recs: O2 as required, wean as able Try self proning today given increase oxygen needs DVT prophylaxis Dexamethasone x 10 days, completed remdesivir x5 days, completed baricitinib started 04/15, completed Monitor cbc and kidney fxn IS Increase activity/PT Chart reviewed KLING MACHINE OPERATOR * Flavio العلي MD - 05/04/2021 11:54 AM CST Pulmonary Daily Progress Chief complaint/reason for consult: Covid 19. Interval History: Pt continues to require 8 lpm oxygen Has ongoing dyspnea and cough No chest pain No fevers Denies edema Presenting History: 46 yo woman w hypothyroidism and BMI 44 admitted 04/14 after presenting to the ED with shortness of breath. Sx present about a week. Started w cough. No chest pain. COVID positive. also hospitalized w COVID. No pre-existing lung disease. CT chest with diffuse patchy gg infiltrates consistent w COVID. Steroids began 04/14 Remdesivir started 04/14 Strep screen + on 04/08/21 Covid 19 + pcr 04/08/21 Allergies: No Known Allergies Medications: Scheduled Meds:cetirizine, 10 mg, oral, Daily enoxaparin, 40 mg, subcutaneous, Q12H DEMETRIA insulin glargine, 10 Units, subcutaneous, Nightly insulin lispro, 0-4 Units, subcutaneous, Nightly insulin lispro, 0-5 Units, subcutaneous, TID with meals insulin lispro, 4 Units, subcutaneous, TID with meals levothyroxine, 75 mcg, oral, Daily - [address], 40 mg, oral, Daily Continuous Infusions: PRN Meds:.??? acetaminophen ??? benzocaine-menthoL ??? benzonatate ??? dextrose OR dextrose ??? glucagon ??? hydrOXYzine ??? ondansetron ODT OR ondansetron ??? sodium chloride ??? traZODone ROS Above review of system reviewed on 05/04/2021 Vitals: Vitals: 05/04/21 0200 05/04/21 0442 05/04/21 0746 05/04/21 0800 BP: 130/70 132/61 BP Location: Left arm Patient Position: Lying Lying Pulse: 97 92 92 113 Resp: 20 18 Temp: 36.3 ??C (97.4 ??F) 36.8 ??C (98.2 ??F) TempSrc: Oral Oral SpO2: 92% 97% 90% Weight: Height: Temp (24hrs), Av ??C (98.6 ??F), Min:36.3 ??C (97.4 ??F), Max:37.5 ??C (99.5 ??F) Intake/Output Summary (Last 24 hours) at 05/04/2021 1154 Last data filed at 05/03/20212024 Gross per 24 hour Intake 100 ml Output -- Net 100 ml Physical Exam Vitals and nursing note reviewed. Constitutional: Appearance: She is obese. HENT: Head: Normocephalic and atraumatic. Nose: Nose normal. Eyes: General: No scleral icterus. Cardiovascular: Rate and Rhythm: Normal rate and regular rhythm. Heart sounds: No murmur heard. Pulmonary: Effort: No respiratory distress. Breath sounds: No wheezing or rales. Abdominal: General: Abdomen is flat. Palpations: Abdomen is soft. Musculoskeletal: Right lower leg: No edema. Left lower leg: No edema. Skin: General: Skin is warm and dry. Neurological: Mental Status: She is alert. Psychiatric: Behavior: Behavior normal. Lab/Radiology/Diagnostic Review: Labs: Recent Labs Lab Units 05/04/21 1031 05/03/21 0920 05/02/21 1047 WBC K/cumm 8.2 11.0* 9.5 HEMOGLOBIN g/dL 10.9* 10.8* 10.8* HEMATOCRIT % 35.0* 34.7* 35.7 PLATELETS K/cumm 213 222 212 NEUTROS PCT % 67.9 77.7 77.4 LYMPHS PCT % 14.5 10.8 10.6 MONOS PCT % 7.6 5.8 5.9 EOS PCT % 9.0 5.1 5.2 Recent Labs Lab Units 05/04/21 1031 05/04/21 0617 05/04/21 0211 05/03/21 1129 05/03/21 0920 05/02/21 1207 05/02/21 1047 SODIUM mmol/L 139 -- -- -- 136 -- 137 POTASSIUM PLASMA mmol/L 4.1 -- -- -- 3.9 -- 4.6 CHLORIDE mmol/L 100 -- -- -- 99 -- 100 CO2 mmol/L 30 -- -- -- 26 -- 26 ANIONGAP mmol/L 9 -- -- -- 11 -- 11 GLUCOSE mg/dL 195 -- -- -- 261* < > 221* POC GLUCOSE MONITOR mg/dL -- 122 139 < > -- < > -- BUN SERUM mg/dL 11 -- -- -- 10 -- 12 CREATININE mg/dL 0.54* -- -- -- 0.44* -- 0.56* CALCIUM mg/dL 8.8 -- -- -- 8.9 -- 8.6 < > = values in this interval not displayed. Recent Labs Lab Units 05/03/21 1759 04/30/21 0458 D DIMER ng/mL FEU 3,856* 5,386* CRP mg/L -- 40.6* Imaging: CXR 05/03: increased bilateral infiltrates CXR 04/14 bilateral patchy ground-glass infiltrate left greater than right Other diagnostic tests: I have personally reviewed above laboratory findings, chest imaging, and diagnostic tests 05/04/2021 Assessment and Plan: COVID 19, dx 04/14, symptom onset approx 04/08/21 positive test on 04/08/2021 Acute respiratory failure Hypothyroidism BMI 44 ?? Recs: O2 as required, wean as able Try self proning today given increase oxygen needs DVT prophylaxis Dexamethasone x 10 days, completed remdesivir x5 days, completed baricitinib started 04/15, completed Monitor cbc and kidney fxn IS Increase activity/PT Trial of Lasix given increased oxygen demands and increased infiltrates Chart reviewed KLING MACHINE OPERATOR * Laura Chung MD - 05/04/2021 11:21 AM CST General Medicine Progress Note Interval Events: Patient remains on the COVID unit. Respiratory status being monitored very closely. Patient continues to have very high oxygen requirement at about 8-9 L nasal cannula. Pulmonary Medicine is following. Patient has now completed course of IV Decadron, and IV Remdesevir. Subjective: Chief complaint: Shortness of breath. No new complaints noted. Objective: Vitals: 24hr Min/Max: Temp Min: 36.3 ??C (97.4 ??F) Max: 37.5 ??C (99.5 ??F) Pulse Min: 92 Max: 113 BP Min: 110/76 Max: 132/61 Resp Min: 18 Max: 20 SpO2 Min: 90 % Max: 98 % Most Recent: Vitals: 05/04/21 0200 05/04/21 0442 05/04/21 0746 05/04/21 0800 BP: 130/70 132/61 BP Location: Left arm Patient Position: Lying Lying Pulse: 97 92 92 113 Resp: 20 18 Temp: 36.3 ??C (97.4 ??F) 36.8 ??C (98.2 ??F) TempSrc: Oral Oral SpO2: 92% 97% 90% Weight: Height: Intake/Output Summary (Last 24 hours) at 05/04/2021 1128 Last data filed at 05/03/20212024 Gross per 24 hour Intake 100 ml Output -- Net 100 ml Physical Exam: Physical Exam GEN: Alert. NAD HENT: Normocephalic. Atraumatic. CVS: RRR CHEST: Coarse breath sounds bilaterally. ABD: soft. ND EXT: no edema Lab/Radiology/Diagnostic Review: Reviewed. Recent Results (from the past 24 hour(s)) POCT glucose Collection Time: 05/03/21 4:46 PM Result Value Ref Range Glucose, POC 114 70 - 199 mg/dL D-dimer, quantitative Collection Time: 05/03/21 5:59 PM Result Value Ref Range D-Dimer 3,856 (H) <=499 ng/mL FEU POCT glucose Collection Time: 05/03/21 8:35 PM Result Value Ref Range Glucose, POC 162 70 - 199 mg/dL POCT glucose Collection Time: 05/04/21 2:11 AM Result Value Ref Range Glucose, POC 139 70 - 199 mg/dL POCT glucose Collection Time: 05/04/21 6:17 AM Result Value Ref Range Glucose, POC 122 70 - 199 mg/dL Assessment and Plan: Principal Problem: Pneumonia due to COVID-19 virus Active Problems: Hyperlipidemia Hypothyroidism Acute respiratory failure with hypoxia (CMS/HCC) (HCC) Elevated AST (SGOT) Dehydration 1. Acute hypoxemic respiratory failure. Secondary to COVID-19 pneumonia. Worse with activity. Patient noted to have oxygen desaturation with activity. Remains on 9-10 L nasal cannula. Will continue to monitor closely. 2. COVID-19 pneumonia. Patient has now completed 5 day course of IV remdesivir. Completed course ofIV Decadron and Baricitinib. Continue to monitor respiratory status very closely. 3. Type 2 diabetes. Continue Lantus 10 units q.h.s.. Monitor Accu-Cheks q.a.c. q.h.s. adjust with alow-dose sliding scale as needed. 4. Hypothyroidism. Continue Synthroid 75 mcg daily. 5. Leukocytosis. Could be from de marginalization from steroids. Monitor closely. 6. Fen. Electrolytes stable. Disposition: Pulmonary Medicine is following. Patient has now completed course of IV Decadron, and IV Remdesevir. Medical decision making complexity: Intermediate Laura Chung MD Hospitalist [phone] 111:28 AM KLING MACHINE OPERATOR * Flavio العلي MD - 05/03/2021 1:06 PM CDT Pulmonary Daily Progress Chief complaint/reason for consult: Covid 19. Interval History: Pt noted to desaturate with activity this am on 6 lpm Now on 8 lpm Feels more sob Cough improving No chest pain No fevers Presenting History: 46 yo woman w hypothyroidism and BMI 44 admitted 04/14 after presenting to the ED with shortness of breath. Sx present about a week. Started w cough. No chest pain. COVID positive. also hospitalized w COVID. No pre-existing lung disease. CT chest with diffuse patchy gg infiltrates consistent w COVID. Steroids began 04/14 Remdesivir started 04/14 Strep screen + on 04/08/21 Covid 19 + pcr 04/08/21 Allergies: No Known Allergies Medications: Scheduled Meds:cetirizine, 10 mg, oral, Daily enoxaparin, 40 mg, subcutaneous, Q12H DEMETRIA insulin glargine, 10 Units, subcutaneous, Nightly insulin lispro, 0-4 Units, subcutaneous, Nightly insulin lispro, 0-5 Units, subcutaneous, TID with meals insulin lispro, 4 Units, subcutaneous, TID with meals levothyroxine, 75 mcg, oral, Daily - [address], 40 mg, oral, Daily Continuous Infusions: PRN Meds:.??? acetaminophen ??? benzocaine-menthoL ??? benzonatate ??? dextrose OR dextrose ??? glucagon ??? hydrOXYzine ??? ondansetron ODT OR ondansetron ??? sodium chloride ??? traZODone CHRISTEN Valentino review of system reviewed on 05/03/2021 Vitals: Vitals: 05/03/21 0150 05/03/21 0332 05/03/21 0706 05/03/21 1100 BP: 120/78 120/65 126/72 BP Location: Left arm Left arm Left arm Patient Position: Lying Pulse: 102 97 92 Resp: Temp: 37.4 ??C (99.3 ??F) 36.9 ??C (98.4 ??F) 36.9 ??C (98.4 ??F) TempSrc: Oral Oral Oral SpO2: 92% 95% 93% 99% Weight: Height: Temp (24hrs), Av.1 ??C (98.7 ??F), Min:36.7 ??C (98 ??F), Max:37.4 ??C (99.3 ??F) Intake/Output Summary (Last 24 hours) at 05/03/2021 1306 Last data filed at 05/03/2021 0905 Gross per 24 hour Intake 460 ml Output -- Net 460 ml Physical Exam Vitals and nursing note reviewed. Constitutional: Appearance: She is obese. HENT: Head: Normocephalic and atraumatic. Nose: Nose normal. Eyes: General: No scleral icterus. Cardiovascular: Rate and Rhythm: Normal rate and regular rhythm. Heart sounds: No murmur heard. Pulmonary: Effort: No respiratory distress. Breath sounds: No wheezing or rales. Abdominal: General: Abdomen is flat. Palpations: Abdomen is soft. Musculoskeletal: Right lower leg: No edema. Left lower leg: No edema. Skin: General: Skin is warm and dry. Neurological: Mental Status: She is alert. Psychiatric: Behavior: Behavior normal. Lab/Radiology/Diagnostic Review: Labs: Recent Labs Lab Units 05/03/21 0920 05/02/21 1047 04/30/21 0428 WBC K/cumm 11.0* 9.5 13.4* HEMOGLOBIN g/dL 10.8* 10.8* 10.8* HEMATOCRIT % 34.7* 35.7 35.1* PLATELETS K/cumm 222 212 258 NEUTROS PCT % 77.7 77.4 76.6 LYMPHS PCT % 10.8 10.6 12.4 MONOS PCT % 5.8 5.9 6.8 EOS PCT % 5.1 5.2 3.4 Recent Labs Lab Units 05/03/21 1129 05/03/21 0920 05/03/21 0647 05/02/21 1207 05/02/21 1047 04/30/21 0830 04/30/21 0458 SODIUM mmol/L -- 136 -- -- 137 -- 140 POTASSIUM PLASMA mmol/L -- 3.9 -- -- 4.6 -- 3.6 CHLORIDE mmol/L -- 99 -- -- 100 -- 99 CO2 mmol/L -- 26 -- -- 26 -- 29 ANIONGAP mmol/L -- 11 -- -- 11 -- 12 GLUCOSE mg/dL -- 261* -- -- 221* < > 140 POC GLUCOSE MONITOR mg/dL 140 -- 161 < > -- < > -- BUN SERUM mg/dL -- 10 -- -- 12 -- 15 CREATININE mg/dL -- 0.44* -- -- 0.56* -- 0.49* CALCIUM mg/dL -- 8.9 -- -- 8.6 -- 9.0 < > = values in this interval not displayed. Recent Labs Lab Units 04/30/21 0458 D DIMER ng/mL FEU 5,386* CRP mg/L 40.6* Imaging: CXR 04/14 bilateral patchy ground-glass infiltrate left greater than right Other diagnostic tests: I have personally reviewed above laboratory findings, chest imaging, and diagnostic tests 05/03/2021 Assessment and Plan: COVID 19, dx 04/14, symptom onset approx 04/08/21 positive test on 04/08/2021 Acute respiratory failure Hypothyroidism BMI 44 ?? Recs: O2 as required, wean as able Try self proning today given increase oxygen needs Check CXR D dimer today DVT prophylaxis Dexamethasone x 10 days, completed remdesivir x5 days, completed baricitinib started 04/15, completed Monitor cbc and kidney fxn IS Increase activity/PT Chart reviewed * Laura Chung MD - 05/03/2021 10:23 AM CDT General Medicine Progress Note Interval Events: Patient is noted to have oxygen desaturation with getting out of bed and increase activity. Patient had previously weaned down to 6 L nasal cannula. Patient is now back up to 9-10 L nasal cannula. Pulmonary Medicine is following. Subjective: Chief complaint: Shortness of breath. No new complaints noted. Objective: Vitals: 24hr Min/Max: Temp Min: 36.7 ??C (98 ??F) Max: 37.4 ??C (99.3 ??F) Pulse Min: 70 Max: 106 BP Min: 106/66 Max: 128/77 Resp Min: 18 Max: 20 SpO2 Min: 87 % Max: 95 % Most Recent: Vitals: 05/02/21 2349 05/03/21 0150 05/03/21 0332 05/03/21 0706 BP: 120/78 120/65 BP Location: Left arm Left arm Patient Position: Lying Pulse: 102 97 Resp: 18 18 Temp: 37.4 ??C (99.3 ??F) 36.9 ??C (98.4 ??F) TempSrc: Oral Oral SpO2: 90% 92% 95% 93% Weight: Height: Intake/Output Summary (Last 24 hours) at 05/03/2021 1030 Last data filed at 05/03/2021 0905 Gross per 24 hour Intake 460 ml Output -- Net 460 ml Physical Exam: Physical Exam GEN: Alert. NAD HENT: Normocephalic. Atraumatic. CVS: RRR CHEST: Coarse breath sounds bilaterally. ABD: soft. ND EXT: no edema Lab/Radiology/Diagnostic Review: Reviewed. Recent Results (from the past 24 hour(s)) CBC with auto differential Collection Time: 05/02/21 10:47 AM Result Value Ref Range WBC 9.5 3.8 - 9.9 K/cumm Hgb 10.8 (L) 11.9 - 15.5 g/dL Hct 35.7 35.6 - 45.5 % Plt 212 150 - 400 K/cumm MPV 12.9 (H) 9.1 - 12.3 fL RBC 3.88 (L) 3.90 - 5.20 M/cumm MCV 92.0 81.3 - 96.4 fL MCH 27.8 27.1 - 33.3 pg MCHC 30.3 (L) 32.3 - 35.7 g/dL RDW CV 16.0 (H) 11.1 - 14.9 % RDW SD 53.8 (H) 35.7 - 48.1 fL NRBC abs 0.00 0.00 - 0.01 K/cumm Basic metabolic panel Collection Time: 05/02/21 10:47 AM Result Value Ref Range Sodium 137 135 - 145 mmol/L Potassium, pl 4.6 3.3 - 4.9 mmol/L Chloride 100 97 - 110 mmol/L CO2 26 22 - 32 mmol/L Anion gap 11 2 - 15 mmol/L BUN 12 8 - 25 mg/dL Creatinine 0.56 (L) 0.60 - 1.10 mg/dL Glucose 221 (H) 70 - 199 mg/dL Calcium 8.6 8.5 - 10.3 mg/dL Differential, auto Collection Time: 05/02/21 10:47 AM Result Value Ref Range Neutrophil abs 7.4 (H) 1.7 - 6.5 K/cumm Imm gran abs 0.0 0.0 - 0.1 K/cumm Lymphocyte abs 1.0 0.8 - 3.3 K/cumm Monocyte abs 0.6 0.2 - 0.8 K/cumm Eosinophil abs 0.5 0.0 - 0.5 K/cumm Basophil abs 0.1 0.0 - 0.1 K/cumm Neutrophil pct 77.4 % Imm gran pct 0.4 % Lymphocyte pct 10.6 % Monocyte pct 5.9 % Eosinophil pct 5.2 % Basophil pct 0.5 % eGFR Collection Time: 05/02/21 10:47 AM Result Value Ref Range eGFR 112 mL/min/1.73 m2 POCT glucose Collection Time: 05/02/21 12:07 PM Result Value Ref Range Glucose, POC 167 70 - 199 mg/dL POCT glucose Collection Time: 05/02/21 5:27 PM Result Value Ref Range Glucose, POC 134 70 - 199 mg/dL POCT glucose Collection Time: 05/02/21 9:56 PM Result Value Ref Range Glucose, POC 166 70 - 199 mg/dL POCT glucose Collection Time: 05/03/21 2:53 AM Result Value Ref Range Glucose, POC 135 70 - 199 mg/dL POCT glucose Collection Time: 05/03/21 6:47 AM Result Value Ref Range Glucose, POC 161 70 - 199 mg/dL CBC with auto differential Collection Time: 05/03/21 9:20 AM Result Value Ref Range WBC 11.0 (H) 3.8 - 9.9 K/cumm Hgb 10.8 (L) 11.9 - 15.5 g/dL Hct 34.7 (L) 35.6 - 45.5 % Plt 222 150 - 400 K/cumm MPV 12.9 (H) 9.1 - 12.3 fL RBC 3.82 (L) 3.90 - 5.20 M/cumm MCV 90.8 81.3 - 96.4 fL MCH 28.3 27.1 - 33.3 pg MCHC 31.1 (L) 32.3 - 35.7 g/dL RDW CV 16.1 (H) 11.1 - 14.9 % RDW SD 53.1 (H) 35.7 - 48.1 fL NRBC abs 0.00 0.00 - 0.01 K/cumm Basic metabolic panel Collection Time: 05/03/21 9:20 AM Result Value Ref Range Sodium 136 135 - 145 mmol/L Potassium, pl 3.9 3.3 - 4.9 mmol/L Chloride 99 97 - 110 mmol/L CO2 26 22 - 32 mmol/L Anion gap 11 2 - 15 mmol/L BUN 10 8 - 25 mg/dL Creatinine 0.44 (L) 0.60 - 1.10 mg/dL Glucose 261 (H) 70 - 199 mg/dL Calcium 8.9 8.5 - 10.3 mg/dL Differential, auto Collection Time: 05/03/21 9:20 AM Result Value Ref Range Neutrophil abs 8.5 (H) 1.7 - 6.5 K/cumm Imm gran abs 0.0 0.0 - 0.1 K/cumm Lymphocyte abs 1.2 0.8 - 3.3 K/cumm Monocyte abs 0.6 0.2 - 0.8 K/cumm Eosinophil abs 0.6 (H) 0.0 - 0.5 K/cumm Basophil abs 0.0 0.0 - 0.1 K/cumm Neutrophil pct 77.7 % Imm gran pct 0.3 % Lymphocyte pct 10.8 % Monocyte pct 5.8 % Eosinophil pct 5.1 % Basophil pct 0.3 % eGFR Collection Time: 05/03/21 9:20 AM Result Value Ref Range eGFR 121 mL/min/1.73 m2 Assessment and Plan: Principal Problem: Pneumonia due to COVID-19 virus Active Problems: Hyperlipidemia Hypothyroidism Acute respiratory failure with hypoxia (CMS/HCC) (HCC) Elevated AST (SGOT) Dehydration 1. Acute hypoxemic respiratory failure. Secondary to COVID-19 pneumonia. Worse with activity. Patient noted to have oxygen desaturation with activity. Patient was previously on 6 L nasal cannula-now on 9-10 L nasal cannula. Will continue to monitor closely. 2. COVID-19 pneumonia. Patient has now completed 5 day course of IV remdesivir. Completed course ofIV Decadron and Baricitinib. Continue to monitor respiratory status very closely. 3. Type 2 diabetes. Continue Lantus 10 units q.h.s.. Monitor Accu-Cheks q.a.c. q.h.s. adjust with alow-dose sliding scale as needed. 4. Hypothyroidism. Continue Synthroid 75 mcg daily. 5. Leukocytosis. Could be from de marginalization from steroids. Monitor closely. 6. Fen. Electrolytes stable. Disposition: Oxygen desaturations noted with activity. Now back on 9-10 L nasal cannula. Pulmonary Medicine is following. Will continue to monitor closely. Medical decision making complexity: Intermediate Laura Chung MD Hospitalist [phone] 110:30 AM * Laura Chung MD - 05/02/2021 6:23 PM CDT General Medicine Progress Note Interval Events: Patient now moved off of the AMCU. Patient continues to do well. Patient now weaned down to 6 L nasal cannula. Subjective: Chief complaint: Shortness of breath. No new complaints noted. Objective: Vitals: 24hr Min/Max: Temp Min: 36.7 ??C (98 ??F) Max: 37 ??C (98.6 ??F) Pulse Min: 70 Max: 109 BP Min: 113/72 Max: 120/78 Resp Min: 20 Max: 39 SpO2 Min: 92 % Max: 98 % Most Recent: Vitals: 05/02/21 0400 05/02/21 0500 05/02/21 0820 05/02/21 1550 BP: 113/72 120/78 BP Location: Right arm Left arm Patient Position: Sitting Sitting Pulse: 91 94 99 70 Resp: (!) 33 (!) 39 22 20 Temp: 36.9 ??C (98.5 ??F) 36.8 ??C (98.2 ??F) 36.7 ??C (98 ??F) TempSrc: Axillary Oral Oral SpO2: 97% 94% 92% 92% Weight: Height: Intake/Output Summary (Last 24 hours) at 05/02/20211920 Last data filed at 05/01/20211999 Gross per 24 hour Intake 360 ml Output -- Net 360 ml Physical Exam: Physical Exam GEN: Alert. NAD HENT: Normocephalic. Atraumatic. CVS: RRR CHEST: Coarse breath sounds bilaterally. ABD: soft. ND EXT: no edema Lab/Radiology/Diagnostic Review: Reviewed. Recent Results (from the past 24 hour(s)) POCT glucose Collection Time: 05/01/21 8:26 PM Result Value Ref Range Glucose, POC 214 (H) 70 - 199 mg/dL POCT glucose Collection Time: 05/02/21 2:15 AM Result Value Ref Range Glucose, POC 130 70 - 199 mg/dL POCT glucose Collection Time: 05/02/21 7:23 AM Result Value Ref Range Glucose, POC 150 70 - 199 mg/dL CBC with auto differential Collection Time: 05/02/21 10:47 AM Result Value Ref Range WBC 9.5 3.8 - 9.9 K/cumm Hgb 10.8 (L) 11.9 - 15.5 g/dL Hct 35.7 35.6 - 45.5 % Plt 212 150 - 400 K/cumm MPV 12.9 (H) 9.1 - 12.3 fL RBC 3.88 (L) 3.90 - 5.20 M/cumm MCV 92.0 81.3 - 96.4 fL MCH 27.8 27.1 - 33.3 pg MCHC 30.3 (L) 32.3 - 35.7 g/dL RDW CV 16.0 (H) 11.1 - 14.9 % RDW SD 53.8 (H) 35.7 - 48.1 fL NRBC abs 0.00 0.00 - 0.01 K/cumm Basic metabolic panel Collection Time: 05/02/21 10:47 AM Result Value Ref Range Sodium 137 135 - 145 mmol/L Potassium, pl 4.6 3.3 - 4.9 mmol/L Chloride 100 97 - 110 mmol/L CO2 26 22 - 32 mmol/L Anion gap 11 2 - 15 mmol/L BUN 12 8 - 25 mg/dL Creatinine 0.56 (L) 0.60 - 1.10 mg/dL Glucose 221 (H) 70 - 199 mg/dL Calcium 8.6 8.5 - 10.3 mg/dL Differential, auto Collection Time: 05/02/21 10:47 AM Result Value Ref Range Neutrophil abs 7.4 (H) 1.7 - 6.5 K/cumm Imm gran abs 0.0 0.0 - 0.1 K/cumm Lymphocyte abs 1.0 0.8 - 3.3 K/cumm Monocyte abs 0.6 0.2 - 0.8 K/cumm Eosinophil abs 0.5 0.0 - 0.5 K/cumm Basophil abs 0.1 0.0 - 0.1 K/cumm Neutrophil pct 77.4 % Imm gran pct 0.4 % Lymphocyte pct 10.6 % Monocyte pct 5.9 % Eosinophil pct 5.2 % Basophil pct 0.5 % eGFR Collection Time: 05/02/21 10:47 AM Result Value Ref Range eGFR 112 mL/min/1.73 m2 POCT glucose Collection Time: 05/02/21 12:07 PM Result Value Ref Range Glucose, POC 167 70 - 199 mg/dL POCT glucose Collection Time: 05/02/21 5:27 PM Result Value Ref Range Glucose, POC 134 70 - 199 mg/dL Assessment and Plan: Principal Problem: Pneumonia due to COVID-19 virus Active Problems: Hyperlipidemia Hypothyroidism Acute respiratory failure with hypoxia (CMS/HCC) (HCC) Elevated AST (SGOT) Dehydration 1. Acute hypoxemic respiratory failure. Secondary to COVID-19 pneumonia. Patient continues to do well. Patient now weaned down to 6 L nasal cannula. 2. COVID-19 pneumonia. Patient has now completed 5 day course of IV remdesivir. Remains on IV Decadron and on Baricitinib. Continue to monitor respiratory status very closely. 3. Type 2 diabetes. Continue Lantus 10 units q.h.s.. Monitor Accu-Cheks q.a.c. q.h.s. adjust with alow-dose sliding scale as needed. 4. Hypothyroidism. Continue Synthroid 75 mcg daily. 5. Leukocytosis. Could be from de marginalization from steroids. Monitor closely. 6. Fen. Electrolytes stable. Disposition: Patient continues to do well. Patient now weaned down to 6 L nasal cannula. Medical decision making complexity: Intermediate Laura Chung MD Hospitalist [phone] 17:21 PM * Anjana Alvarado, [employer] - 05/02/2021 4:18 PM CDT Physical Therapy PT PROGRESS NOTE Shaina Huynh 46 y.o. 1975 Past Medical History: Diagnosis Date ??? Thyroid disease Past Surgical History: Procedure Laterality Date ??? SECTION Patient Active Problem List Diagnosis ??? Hyperlipidemia ??? Lipoprotein deficiency disorder ??? Pneumonia due to COVID-19 virus ??? Hypothyroidism ??? Prediabetes ??? Seasonal allergies ??? Acute respiratory failure with hypoxia (CMS/HCC) (HCC) ??? Elevated AST (SGOT) ??? Dehydration TIME IN: 1618 TIME OUT: 1649 SUBJECTIVE Patient agrees to try whatever activity she can. MENTAL STATUS/ORIENTATION: alert PAIN: Pre-therapy pain level: denies pain Pain location: n/a Pain intervention: n/a Post-therapy pain level/response to intervention: unchanged OBJECTIVE PRECAUTIONS: fall, contact + airborne for COVID APPEARANCE/POSTURE: female patient left turned in bed with O2, continuous pulse ox VITAL SIGNS: Resting heart rate: 95 BPM Post-activity heart rate: 115-123 BPM Resting O2 sat: 92% on 6L. O2 Post-activity O2 sat: 80% following transfer on 6L. O2. Post-activity O2 sat: 84% following transfers on 8L. O2 O2 sat at end of session: 91% on 6L. O2 MOBILITY DOCUMENTATION: Bed Mobility/Transfers: supine to sit with use of bedrail, with SBA. Bed to commode, and commode to chair with CGA/SBA. Gait: deferred due to desaturation. APPEARANCE/POSTURE (end of session): seated in chair with LE's elevated, UE's resting on pillows, on 6L. O2, call light in reach. EDUCATION: Transfers, PLB, relaxation RESPONSE TO EDUCATION: needs reinforcement ASSESSMENT Activity tolerance/response to P.T.: patient desats with sitting on EOB and stand pivot transfers. Barriers to learning: Physical Barriers to discharge: Decreased endurance, Lower extremity weakness and Stairs at home Patient continues progressing toward previously set goals which remain appropriate at this time. PLAN Patient to be seen for P.T. 3-5 times per week to address previously established deficits and goals. DISCHARGE LOCATION RECOMMENDATIONS: HOME with intermittent assist and HHPT If this is the last note, please consider this the discharge summary. Cosigned by Jazzy Han, PT at 05/05/2021 12:41 PM CRINKLING MACHINE OPERATOR KLING MACHINE OPERATOR * Flavio العلي MD - 05/02/2021 1:06 PM CDT Pulmonary Daily Progress Chief complaint/reason for consult: Covid 19. Interval History: Notes less dyspnea Oxygen weaned from 12 lpm to 6 lpm SaO2 92% Cough improving Ambulating in room without difficulty No fevers Presenting History: 46 yo woman w hypothyroidism and BMI 44 admitted 04/14 after presenting to the ED with shortness of breath. Sx present about a week. Started w cough. No chest pain. COVID positive. also hospitalized w COVID. No pre-existing lung disease. CT chest with diffuse patchy gg infiltrates consistent w COVID. Steroids began 04/14 Remdesivir started 04/14 Strep screen + on 04/08/21 Covid 19 + pcr 04/08/21 Allergies: No Known Allergies Medications: Scheduled Meds:cetirizine, 10 mg, oral, Daily enoxaparin, 40 mg, subcutaneous, Q12H DEMETRIA insulin glargine, 10 Units, subcutaneous, Nightly insulin lispro, 0-4 Units, subcutaneous, Nightly insulin lispro, 0-5 Units, subcutaneous, TID with meals insulin lispro, 4 Units, subcutaneous, TID with meals levothyroxine, 75 mcg, oral, Daily - [address], 40 mg, oral, Daily Continuous Infusions: PRN Meds:.??? acetaminophen ??? benzocaine-menthoL ??? benzonatate ??? dextrose OR dextrose ??? glucagon ??? hydrOXYzine ??? ondansetron ODT OR ondansetron ??? sodium chloride ??? traZODone CHRISTEN Above review of system reviewed on 05/02/2021 Vitals: Vitals: 05/02/21 0300 05/02/21 0400 05/02/21 0500 05/02/21 0820 BP: 113/72 BP Location: Right arm Patient Position: Sitting Pulse: 95 91 94 99 Resp: 21 (!) 33 (!) 39 22 Temp: 36.9 ??C (98.5 ??F) 36.8 ??C (98.2 ??F) TempSrc: Axillary Oral SpO2: 96% 97% 94% 92% Weight: Height: Temp (24hrs), Av.9 ??C (98.5 ??F), Min:36.8 ??C (98.2 ??F), Max:37 ??C (98.6 ??F) Intake/Output Summary (Last 24 hours) at 05/02/2021 1306 Last data filed at 05/01/20211999 Gross per 24 hour Intake 760 ml Output 450 ml Net 310 ml Physical Exam Vitals and nursing note reviewed. Constitutional: Appearance: She is obese. HENT: Head: Normocephalic and atraumatic. Nose: Nose normal. Eyes: General: No scleral icterus. Cardiovascular: Rate and Rhythm: Normal rate and regular rhythm. Heart sounds: No murmur heard. Pulmonary: Effort: No respiratory distress. Breath sounds: No wheezing or rales. Abdominal: General: Abdomen is flat. Palpations: Abdomen is soft. Musculoskeletal: Right lower leg: No edema. Left lower leg: No edema. Skin: General: Skin is warm and dry. Neurological: Mental Status: She is alert. Psychiatric: Behavior: Behavior normal. Lab/Radiology/Diagnostic Review: Labs: Recent Labs Lab Units 05/02/21 1047 04/30/21 0428 04/29/21 0350 WBC K/cumm 9.5 13.4* 11.9* HEMOGLOBIN g/dL 10.8* 10.8* 11.0* HEMATOCRIT % 35.7 35.1* 35.0* PLATELETS K/cumm 212 258 265 NEUTROS PCT % 77.4 76.6 76.8 LYMPHS PCT % 10.6 12.4 13.3 MONOS PCT % 5.9 6.8 6.1 EOS PCT % 5.2 3.4 2.9 Recent Labs Lab Units 05/02/21 1207 05/02/21 1047 05/02/21 0723 04/30/21 0830 04/30/21 0458 04/29/21 0730 04/29/21 0349 SODIUM mmol/L -- 137 -- -- 140 -- 139 POTASSIUM PLASMA mmol/L -- 4.6 -- -- 3.6 -- 4.1 CHLORIDE mmol/L -- 100 -- -- 99 -- 100 CO2 mmol/L -- 26 -- -- 29 -- 28 ANIONGAP mmol/L -- 11 -- -- 12 -- 11 GLUCOSE mg/dL -- 221* -- -- 140 < > 117 POC GLUCOSE MONITOR mg/dL 167 -- 150 < > -- < > -- BUN SERUM mg/dL -- 12 -- -- 15 -- 17 CREATININE mg/dL -- 0.56* -- -- 0.49* -- 0.46* CALCIUM mg/dL -- 8.6 -- -- 9.0 -- 8.8 < > = values in this interval not displayed. Recent Labs Lab Units 04/30/21 0458 D DIMER ng/mL FEU 5,386* CRP mg/L 40.6* Imaging: CXR 04/14 bilateral patchy ground-glass infiltrate left greater than right Other diagnostic tests: I have personally reviewed above laboratory findings, chest imaging, and diagnostic tests 05/02/2021 Assessment and Plan: COVID 19, dx 04/14, symptom onset approx 04/08/21 positive test on 04/08/2021 Acute respiratory failure Hypothyroidism BMI 44 ?? Recs: O2 as required, wean DVT prophylaxis Dexamethasone x 10 days, completed remdesivir x5 days, completed baricitinib started 04/15, completed Monitor cbc and kidney fxn IS Increase activity/PT Chart reviewed * Shaina Ochoa COTA - 05/02/2021 11:35 AM CDT Occupational Therapy NOTE / SESSION TYPE: DAILY PROGRESS / TREATMENT Patient's Name: Shaina Huynh Age / Sex: 46 y.o. / female [id number] 1975 Date of service: 05/02/21 TIME IN: 1101 TIME OUT: 1143 Patient Active Problem List Diagnosis ??? Hyperlipidemia ??? Lipoprotein deficiency disorder ??? Pneumonia due to COVID-19 virus ??? Hypothyroidism ??? Prediabetes ??? Seasonal allergies ??? Acute respiratory failure with hypoxia (CMS/HCC) (HCC) ??? Elevated AST (SGOT) ??? Dehydration Past Medical History: Diagnosis Date ??? Thyroid disease Past Surgical History: Procedure Laterality Date ??? SECTION Precautions (including weight-bearing): Fall risk, Bed / chair alarm, Cardiac precautions and Airborne precautions: COVID Subjective: MY SINUSES ARE CLOGGED UP Therapy Pain: Pre-therapy pain level: 3 /10 Pain location: BILATERAL TEMPORAL REGION\ Pain Intervention(s): Patient denied need for pain medication Post-therapy pain level: 3 /10 Pain scale reference: 0-10 SCALE Objective: Appearance: Presentation upon OT arrival: Patient Supine with head of bed elevated Presentation upon OT departure: Patient Supine with head of bed elevated Bed / Chair alarm in place and activated upon OT departure: Yes Call light within arms reach of patient at end of session: Yes Completed patient handoff and notified [employer] / RN, name: LYNNE, of patient's location and functional status upon completion of session VITAL SIGNS: Heart rate at rest: 89 BPM Heart rate with activity: 109 BPM O2 saturations at rest: 91 % O2 saturations with activity: 87 %- PROGRESSED TO 90% WITH 2 MINS OF PLB AND ENERGY CONSERVATION Oxygen LPM: 6L INITIALLY, INCREASED TO 8L WITH ACTIVITY (PER RN APPROVAL) THEN RETURNED TO 6L PRIORTO THERAPIST DEPARTURE PER RN REQUEST Cognitive / Perceptual: WNL Mobility / Transfers: Bed Mobility: SUPINE TO EOB MIN ASSIST, EOB TO SUPINE SPV . PATIENT REQUIRED 2(MIN) V/C FOR PLB ANDPACING SELF WITH TASKS Transfer(s): DECLINED OOB UE THERAPEUTIC EXERCISES: EXERCISE TYPE: OXIDATIVE HEP MUSCLE GROUP(S): 2 NUMBER OF REPETITIONS: 1 MIN TOLERATED WITH IMPROVEMENT IN 02 SATURATIONS TO 90% ASSIST LEVEL: MIN VERBAL CUES LOCATION OF COMPLETION: EOB TOLERANCE: NO UNDUE PAIN, MIN C/O PAIN- COMPLETED WITH 2LB WEIGHT Caregiver Present: No Education & Training Provided: Role of OT, OT plan of care, Bed mobility training, UE home exercise program, Pursed lip breathing / Relaxation techniques and Energy conservation education Assessment: Activity tolerance / response to OT session: GOOD PARTICIPATION, GOOD MOTIVATION, RECEPTIVE TO EDUCATION / TRAINING, FAIR TOLERANCE and 3 REST BREAKS REQUIRED Progress towards goals: Please refer to care plan from this date for progress towards individual goals Plan: Therapy Plan: Rehab Potential (Prognosis): good OT Recommendations This Date: Location: Home WITH INTERMITTENT ASSIST Supervision: Intermittent Follow-up Therapy Recommendations: HHOT OT Consultation in Regards to Discharge Recommendations: N/A Frequency of therapy: 3-5 times / week If this is the last note, consider this the discharge summary MAGALI Maloney 05/02/21 Cosigned by Ashley Wyatt OT at 05/02/2021 4:25 PM CDT * Laura Chung MD - 05/01/2021 2:41 PM CDT General Medicine Progress Note Interval Events: Patient remains the AMCU. Continues to do well. Will continue to wean as tolerated. Pulmonary Medicine is following. Patient now weaned down to 12 L nasal cannula. Okay to move off of AMCU. Subjective: Chief complaint: Shortness of breath. Patient has no new complaints. Sitting comfortably in her chair. Objective: Vitals: 24hr Min/Max: Temp Min: 36.7 ??C (98 ??F) Max: 36.8 ??C (98.3 ??F) Pulse Min: 80 Max: 106 BP Min: 87/22 Max: 126/80 Resp Min: 18 Max: 38 SpO2 Min: 85 % Max: 98 % Most Recent: Vitals: 05/01/21 1014 05/01/21 1100 05/01/21 1200 05/01/21 1300 BP: Pulse: 93 90 89 Resp: 28 24 (!) 34 Temp: 36.7 ??C (98 ??F) TempSrc: Temporal SpO2: 92% 95% 91% 93% Weight: Height: Intake/Output Summary (Last 24 hours) at 05/01/2021 1449 Last data filed at 05/01/2021 0935 Gross per 24 hour Intake 675 ml Output 700 ml Net -25 ml Physical Exam: Physical Exam GEN: Alert. NAD HENT: Normocephalic. Atraumatic. CVS: RRR CHEST: Coarse breath sounds bilaterally. ABD: soft. ND EXT: no edema Lab/Radiology/Diagnostic Review: Reviewed. Recent Results (from the past 24 hour(s)) POCT glucose Collection Time: 04/30/21 6:04 PM Result Value Ref Range Glucose, POC 167 70 - 199 mg/dL POCT glucose Collection Time: 04/30/21 8:16 PM Result Value Ref Range Glucose, POC 200 (H) 70 - 199 mg/dL POCT glucose Collection Time: 05/01/21 2:00 AM Result Value Ref Range Glucose, POC 131 70 - 199 mg/dL POCT glucose Collection Time: 05/01/21 7:56 AM Result Value Ref Range Glucose, POC 129 70 - 199 mg/dL POCT glucose Collection Time: 05/01/21 11:55 AM Result Value Ref Range Glucose, POC 157 70 - 199 mg/dL Assessment and Plan: Principal Problem: Pneumonia due to COVID-19 virus Active Problems: Hyperlipidemia Hypothyroidism Acute respiratory failure with hypoxia (CMS/HCC) (HCC) Elevated AST (SGOT) Dehydration 1. Acute hypoxemic respiratory failure. Secondary to COVID-19 pneumonia. Continues to do well. Now on 12 L nasal cannula. 2. COVID-19 pneumonia. Patient has now completed 5 day course of IV remdesivir. Remains on IV Decadron and on Baricitinib. Continue to monitor respiratory status very closely. 3. Type 2 diabetes. Continue Lantus 10 units q.h.s.. Monitor Accu-Cheks q.a.c. q.h.s. adjust with alow-dose sliding scale as needed. 4. Hypothyroidism. Continue Synthroid 75 mcg daily. 5. Leukocytosis. Could be from de marginalization from steroids. Monitor closely. 6. Fen. Electrolytes stable. Disposition: Continues to do well. Patient now weaned down to 12 L nasal cannula. Okay to move off of AMCU. Medical decision making complexity: Intermediate Laura Chung MD Hospitalist [phone] 12:49 PM * Johnny Salgado MD - 05/01/2021 8:32 AM CDT Pulmonary Daily Progress Chief complaint/reason for consult: Covid 19. Interval History: Now on 12L HFNC, improving Has been on this since Wednesday Eating breakfast, using incentive Breathing comf occ cough No fevers Presenting History: 46 yo woman w hypothyroidism and BMI 44 admitted 04/14 after presenting to the ED with shortness of breath. Sx present about a week. Started w cough. No chest pain. COVID positive. also hospitalized w COVID. No pre-existing lung disease. CT chest with diffuse patchy gg infiltrates consistent w COVID. Steroids began 04/14 Remdesivir started 04/14 Strep screen + on 04/08/21 Covid 19 + pcr 04/08/21 Allergies: No Known Allergies Medications: Scheduled Meds:cetirizine, 10 mg, oral, Daily enoxaparin, 40 mg, subcutaneous, Q12H DEMETRIA insulin glargine, 10 Units, subcutaneous, Nightly insulin lispro, 0-4 Units, subcutaneous, Nightly insulin lispro, 0-5 Units, subcutaneous, TID with meals insulin lispro, 4 Units, subcutaneous, TID with meals levothyroxine, 75 mcg, oral, Daily - [address], 40 mg, oral, Daily Continuous Infusions: PRN Meds:.??? acetaminophen ??? benzocaine-menthoL ??? dextrose OR dextrose ??? glucagon ??? hydrOXYzine ??? ondansetron ODT OR ondansetron ??? sodium chloride ??? traZODone ROS Above review of system reviewed on 05/01/2021 Vitals: Vitals: 05/01/21 0400 05/01/21 0449 05/01/21 0500 05/01/21 0600 BP: 125/77 112/66 121/71 Pulse: 100 85 80 Resp: (!) 32 28 (!) 38 Temp: 36.8 ??C (98.2 ??F) TempSrc: Axillary SpO2: 92% 96% 97% 96% Weight: Height: Temp (24hrs), Av.8 ??C (98.3 ??F), Min:36.7 ??C (98.1 ??F), Max:36.9 ??C (98.5 ??F) Intake/Output Summary (Last 24 hours) at 05/01/2021 0832 Last data filed at 05/01/2021 0650 Gross per 24 hour Intake 540 ml Output 700 ml Net -160 ml Physical Exam Vitals and nursing note reviewed. Constitutional: Appearance: She is obese. HENT: Head: Normocephalic and atraumatic. Nose: Nose normal. Eyes: General: No scleral icterus. Cardiovascular: Rate and Rhythm: Normal rate and regular rhythm. Heart sounds: No murmur heard. Pulmonary: Effort: No respiratory distress. Breath sounds: No wheezing or rales. Abdominal: General: Abdomen is flat. Palpations: Abdomen is soft. Musculoskeletal: Right lower leg: No edema. Left lower leg: No edema. Skin: General: Skin is warm and dry. Neurological: Mental Status: She is alert. Psychiatric: Behavior: Behavior normal. Lab/Radiology/Diagnostic Review: Labs: Recent Labs Lab Units 04/30/21 0428 04/29/21 0350 04/28/21 0500 WBC K/cumm 13.4* 11.9* 12.7* HEMOGLOBIN g/dL 10.8* 11.0* 11.1* HEMATOCRIT % 35.1* 35.0* 36.2 PLATELETS K/cumm 258 265 258 NEUTROS PCT % 76.6 76.8 78.8 LYMPHS PCT % 12.4 13.3 12.0 MONOS PCT % 6.8 6.1 6.1 EOS PCT % 3.4 2.9 2.3 Recent Labs Lab Units 05/01/21 0756 05/01/21 0200 04/30/21201504/30/21 0830 04/30/21 0458 04/29/21 0730 04/29/21 0349 04/28/21 0806 04/28/21 0500 SODIUM mmol/L -- -- -- -- 140 -- 139 -- 139 POTASSIUM PLASMA mmol/L -- -- -- -- 3.6 -- 4.1 -- 3.8 CHLORIDE mmol/L -- -- -- -- 99 -- 100 -- 100 CO2 mmol/L -- -- -- -- 29 -- 28 -- 29 ANIONGAP mmol/L -- -- -- -- 12 -- 11 -- 10 GLUCOSE mg/dL -- -- -- -- 140 < > 117 < > 121 POC GLUCOSE MONITOR mg/dL 129 131 200* < > -- < > -- < > -- BUN SERUM mg/dL -- -- -- -- 15 -- 17 -- 13 CREATININE mg/dL -- -- -- -- 0.49* -- 0.46* -- 0.43* CALCIUM mg/dL -- -- -- -- 9.0 -- 8.8 -- 8.7 < > = values in this interval not displayed. Recent Labs Lab Units 04/30/21 0458 D DIMER ng/mL FEU 5,386* CRP mg/L 40.6* Imaging: CXR 04/14 bilateral patchy ground-glass infiltrate left greater than right Other diagnostic tests: I have personally reviewed above laboratory findings, chest imaging, and diagnostic tests 05/01/2021 Assessment and Plan: COVID 19, dx 04/14, symptom onset approx 04/08/21 positive test on 04/08/2021 Acute respiratory failure Hypothyroidism BMI 44 ?? Recs: O2 as required, wean DVT prophylaxis Dexamethasone x 10 days, completed remdesivir x5 days, completed baricitinib started 04/15, completed Monitor cbc and kidney fxn IS Increase activity/PT Consider transfer to 8th floor Chart reviewed * Ashley Wyatt, OT - 04/30/2021 2:49 PM CDT Occupational Therapy NOTE / SESSION TYPE: Initial Evaluation Patient Name: Shaina Huynh Date of : 1975 Age / Sex: 46 y.o. / female Room: [facility]/[place] [address] Admit Date: 04/14/2021 Date of Service: 04/30/21 Time In: 11:35 Time Out: 11:55 AND Time In: 14:56 Time Out: 15:09 Primary Diagnosis: Pneumonia due to COVID-19 virus HPI: Shaina Huynh is a 46 y.o. female who presents with worsening SOB, cough, fatigue, diagnosed withCOVID-19 six days prior to arrival to hospital- and son also have COVID-19, patient reportsalso having strep pharyngitis, pneumonia due to COVID-19 virus, hypoxia, acute respiratory failure,dehydration, rapid response called on 04/15/21 due to declining SPO2- patient placed on 15 L highflow and 15 L non-rebreather, possible upper respiratory infection, fatigue, hyperglycemia, leukocytosis Notable History: Thyroid disease, HLD, morbid obesity, Past Medical History: Diagnosis Date ??? Thyroid disease Past Surgical History: Procedure Laterality Date ??? SECTION Precautions (Including Weight-Bearing): Fall risk, Contact precautions: COVID, and Airborne precautions: COVID Caregiver Present for Session (Yes or No): No SUBJECTIVE: Patient Comment: I'm tired. Pain Assessment: Pre-therapy pain level: 0 / 10 Pain location: No pain - Location N/A Pain intervention(s): No pain - Intervention N/A Post-therapy pain level: 0 / 10 Pain scale used: 0-10 SCALE Prior Living Environment and Level of Function: Lives with: Spouse and five year old daughter Receives assistance from / other social supports available: Supportive spouse Living environment (Type of residence / Entrance accessibility): Apartment on second floor with 8 + 8 steps to enter Bathroom location and setup: Tub/shower combination Bathroom equipment available: None Home Mobility equipment available: None Home ADL equipment available: None Prior level of function: Independent with feeding, grooming, bathing, dressing, toileting, transfers, ambulating, housekeeping, laundry, meal preparation, shopping, 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 Fall(s) within the last 6 months: No OBJECTIVE: Appearance: Presentation upon OT arrival: Patient Supine with head of bed elevated Presentation upon OT departure: Patient Supine with head of bed elevated Bed / chair alarm in place and activated upon OT departure: N/A Call light within arms reach of patient at end of session: Yes Completed patient handoff and notified [employer] / RN, name: Anitha, of patient's location and functional status upon completion of session Vital Signs: Heart rate at rest: 100 bpm SPO2 at rest: 95 % Heart rate with activity: 112 bpm SPO2 with activity: 88 %- oxygen improves with rest and pursed lip breathing Oxygen LPM: 12 L Highflow Nasal Cannula Cognitive / Perceptual Assessment: Overall Cognitive Status: At baseline Arousal: Alert Orientation: Oriented x4 (person, place, time, and situation) Following commands: One step commands 100% Safety Judgement: Min verbal cues for safety Behavior: Easy to engage Communication: WNL UE ROM / Strength / Coordination: (A)ROM - Right: WFL Strength - Right: 4/5, except shoulder flexion 4-/5 (A)ROM - Left: WFL Strength - Left: 4/5, except shoulder flexion 4-/5 Hand Dominance: Right Aircraft Ordnance Technician Strength (Right) Good Aircraft Ordnance Technician Strength (Left): Good Right Coordination: Serial opposition Intact Left Coordination: Serial opposition Intact Balance: Static sitting balance: Good, supported, sitting on EOB Mobility / Transfers: Bed mobility (Components & Assistance): Supine to sit/sit to supine-Supervision Transfer(s): Not assessed due to patient fatigue and recently working with PT prior to OT session Activities of Daily Living / Living Skills: UE dressing: Patient completed upper body dressing of Hospital gown as robe while Sitting on EOB with overall Close supervision / verbal cues. Lower Body Dressing: Patient requires total assist to complete at this time due to decreased endurance and fatigue. Footwear: Patient requires total assist to complete at this time due to decreased endurance and fatigue. Other: Patient completed 10 repetitions of incentive spirometer exercises with min verbal cues to use appropriate technique. Patient completed with good to fair tolerance while seated on EOB. ASSESSMENT: Rehab Potential (Prognosis): good Problem List: Patient has impairments including: Decreased mobility, Decreased endurance and Decreased ADL independence. Barriers to Discharge: Decreased endurance and Medical complications PLAN: OT Discharge Recommendations this date: Location: Home with family Supervision: Intermittent Follow-up therapy recommendations: Home health OT Frequency of therapy: 3-5 times / week Intervention / Education needs: ADL training, Compensatory ADL strategies, Adaptive equipment education, Durable medical equipment education, Balance activities, Functional transfer training, Pursed lip breathing / Relaxation techniques, UE home exercise program education and Energy conservation cari hniques Education provided: Patient has been educated on Role of OT, OT plan of care, ADL training, Bed mobility training, UE home exercise program, Durable medical equipment: shower chair and Other: COVID Recovery. Education completed via explanation and handout . Patient needs ongoing reinforcement. Short Term Goals / Care Plan: Multi-Disciplinary Problems (from Occupational Therapy) Active Problems Problem: OT Misc Start Date: 04/30/21 Goal Start Date Expected End Date End Date OT STG - Misc 1 04/30/21 05/07/21 -- Goal Details: Patient will complete bathing with supervision assist one time Goal Start Date Expected End Date End Date OT STG - Mis 2 04/30/21 05/07/21 -- Goal Details: Patient will complete UE dressing Independently one time with equipment as needed Goal Start Date Expected End Date End Date OT STG - Mis 3 04/30/21 05/07/21 -- Goal Details: Patient will complete LE dressing of underwear and socks Independently one time with equipment as needed Goal Start Date Expected End Date End Date OT STG - Mis 4 04/30/21 05/07/21 -- Goal Details: Patient will complete toilet transfer Independently one time with equipment as needed Goal Start Date Expected End Date End Date OT [facility] - Mis 5 04/30/21 05/07/21 -- Goal Details: Patient will complete oxidative muscle exercises with min verbal cues to improve tolerance for ADLs one time Goal Start Date Expected End Date End Date OT [facility] - Mis 6 04/30/21 05/07/21 -- Goal Details: Patient will verbalize/demonstrate 4-5 energy conservation techniques independently to improve tolerance for ADLs one time If this is the last note, consider this the discharge summary Ashley Wyatt, OT 04/30/21 * Samir Stanley, PT - 04/30/2021 2:16 PM CDT Physical Therapy INITIAL EVALUATION PATIENT'S NAME:Shaina Huynh :1975 AGE:46 y.o. TIME IN:1416 TIME OUT:1454 CURRENT DIAGNOSIS AND HOSPITAL COURSE: Pneumonia due to COVID-19 HPI: Shaina Huynh is a 46 y.o. female who presents with worsening SOB, cough, fatigue, diagnosed withCOVID-19 six days prior to arrival to hospital- and son also have COVID-19, patient reportsalso having strep pharyngitis, pneumonia due to COVID-19 virus, hypoxia, acute respiratory failure,dehydration, rapid response called on 04/15/21 due to declining SPO2- patient placed on 15 L highflow and 15 L non-rebreather, possible upper respiratory infection, fatigue, hyperglycemia, leukocytosis Notable History: Thyroid disease, HLD, morbid obesity, Patient Active Problem List Diagnosis ??? Hyperlipidemia ??? Lipoprotein deficiency disorder ??? Pneumonia due to COVID-19 virus ??? Hypothyroidism ??? Prediabetes ??? Seasonal allergies ??? Acute respiratory failure with hypoxia (CMS/HCC) (HCC) ??? Elevated AST (SGOT) ??? Dehydration Past Medical History: Diagnosis Date ??? Thyroid disease Past Surgical History: Procedure Laterality Date ??? SECTION SUBJECTIVE LIVES WITH: 5 year old daughter LIVING ENVIRONMENT: 2nd floor apt with 8 steps x 2 to enter PRIOR LEVEL OF FUNCTION: Patient indep with BADL and IADL, amb indep without device. 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 EQUIPMENT OWNED: none EQUIPMENT USED: none SOCIAL SUPPORTS: but he recently was in hospital with COVID PATIENT/FAMILY GOAL: go home MENTAL STATUS/ORIENTATION: Alert and oriented x4 OBJECTIVE PRECAUTIONS: fall risk COVID-19 precautions APPEARANCE/POSTURE: Patient lying supine in bed with 15L HFNC, heplock IV, Heart and O2 sat monitor VITAL SIGNS: Resting BP: WNL Resting heart rate: 104 BPM Post-activity heart rate: 112 BPM Resting O2 sat: 95% Post-activity O2 sat: 82% with patient needing vc's for PLB and to slow pace of movement. Improved to 90-93% at rest with use of NRB and PLB. PAIN: Pre-therapy pain level: 07/07 Pain location: headache Pain intervention: RN gives pain medication Post-therapy pain level/response to intervention: 09/04 LE ASSESSMENTS: Right LE ROM: WFL Left LE ROM: WFL Right LE strength: 4-/5 Left LE strength: 4-/5 MOBILITY: Bed mobility: supine to/from sit SBA Transfers: sit to/from stand with cg assist, bed to/from b/s commode with cg assist. Taking 3-4 steps to turn without device. Balance/Special Tests: Static sitting balance: good Dynamic sitting balance: good Static standing balance: good- Dynamic standing balance: good- Basic Mobility - 6 Click How much difficulty does the patient have: Turning over in bed: None How much difficulty does the patient currently have: Sitting down and standing up from a chair witharms?: A little How much difficulty does the patient have: Moving from lying on back to sitting on the side of the bed?: A little How much difficulty does the patient have: Moving to and from a bed to a chair including wheelchair?: A little How much help does the patient currently need: Walk in hospital room?: A lot How much help from another person does the patient currently need: Climbing 3-5 steps with a railing?: A lot Total 6 Click Score (range 6-24): 17 APPEARANCE/POSTURE (end of session): Patient lying supine with HOB elevated, attachments as previously stated. Cata, given hand off. EDUCATION: PT POC, PLB, slowing pace RESPONSE TO EDUCATION: needs reinforcement ASSESSMENT PROBLEM LIST: decreased endurance, decreased strength and balance, decreased indep with transfres and amb BARRIERS TO LEARNING: Physical and Emotional BARRIERS TO DISCHARGE: Pain, Decreased endurance, Lower extremity weakness and Stairs at home REHAB POTENTIAL/PROGNOSIS: good PLAN DISCHARGE LOCATION RECOMMENDATIONS: HOME with intermittent assist and HHPT TREATMENT PLAN/INTERVENTIONS: acute PT to address deficit areas FREQUENCY: 3-5x/week EQUIPMENT RECOMMENDATIONS: to be determined Refer to multi-disciplinary care plan section for PT specific goals. If this is the last note, please consider this the discharge summary. * Laura Chung MD - 04/30/2021 10:54 AM CDT General Medicine Progress Note Interval Events: Patient remains the AMCU. Continues to do well. Will continue to wean as tolerated. Pulmonary Medicine is following. Was on Opti Flow FiO2 55 liters/minute - now weaned down to HF NC 15 L. Continues to do well. Subjective: Chief complaint: Shortness of breath. Patient has no new complaints. Objective: Vitals: 24hr Min/Max: Temp Min: 36.6 ??C (97.9 ??F) Max: 37 ??C (98.6 ??F) Pulse Min: 75 Max: 116 BP Min: 101/60 Max: 129/95 Resp Min: 13 Max: 32 SpO2 Min: 86 % Max: 99 % Most Recent: Vitals: 04/30/21 0500 04/30/21 0502 04/30/21 0600 04/30/21 0700 BP: 113/62 123/90 120/67 Pulse: 95 89 84 Resp: 24 27 (!) 31 Temp: TempSrc: SpO2: (!) 89% 91% 91% 94% Weight: Height: Intake/Output Summary (Last 24 hours) at 04/30/2021 0830 Last data filed at 04/29/2021 2135 Gross per 24 hour Intake 985 ml Output 300 ml Net 685 ml Physical Exam: Physical Exam GEN: Alert. NAD HENT: Normocephalic. Atraumatic. CVS: RRR CHEST: Coarse breath sounds bilaterally. ABD: soft. ND EXT: no edema Lab/Radiology/Diagnostic Review: Reviewed. Recent Results (from the past 24 hour(s)) POCT glucose Collection Time: 04/29/21 11:16 AM Result Value Ref Range Glucose, POC 253 (H) 70 - 199 mg/dL POCT glucose Collection Time: 04/29/21 5:48 PM Result Value Ref Range Glucose, POC 272 (H) 70 - 199 mg/dL POCT glucose Collection Time: 04/29/21 7:57 PM Result Value Ref Range Glucose, POC 253 (H) 70 - 199 mg/dL CBC with auto differential Collection Time: 04/30/21 4:28 AM Result Value Ref Range WBC 13.4 (H) 3.8 - 9.9 K/cumm Hgb 10.8 (L) 11.9 - 15.5 g/dL Hct 35.1 (L) 35.6 - 45.5 % Plt 258 150 - 400 K/cumm MPV 12.7 (H) 9.1 - 12.3 fL RBC 3.77 (L) 3.90 - 5.20 M/cumm MCV 93.1 81.3 - 96.4 fL MCH 28.6 27.1 - 33.3 pg MCHC 30.8 (L) 32.3 - 35.7 g/dL RDW CV 15.4 (H) 11.1 - 14.9 % RDW SD 52.4 (H) 35.7 - 48.1 fL NRBC abs 0.00 0.00 - 0.01 K/cumm Differential, auto Collection Time: 04/30/21 4:28 AM Result Value Ref Range Neutrophil abs 10.2 (H) 1.7 - 6.5 K/cumm Imm gran abs 0.1 0.0 - 0.1 K/cumm Lymphocyte abs 1.7 0.8 - 3.3 K/cumm Monocyte abs 0.9 (H) 0.2 - 0.8 K/cumm Eosinophil abs 0.5 0.0 - 0.5 K/cumm Basophil abs 0.0 0.0 - 0.1 K/cumm Neutrophil pct 76.6 % Imm gran pct 0.6 % Lymphocyte pct 12.4 % Monocyte pct 6.8 % Eosinophil pct 3.4 % Basophil pct 0.2 % Basic metabolic panel Collection Time: 04/30/21 4:58 AM Result Value Ref Range Sodium 140 135 - 145 mmol/L Potassium, pl 3.6 3.3 - 4.9 mmol/L Chloride 99 97 - 110 mmol/L CO2 29 22 - 32 mmol/L Anion gap 12 2 - 15 mmol/L BUN 15 8 - 25 mg/dL Creatinine 0.49 (L) 0.60 - 1.10 mg/dL Glucose 140 70 - 199 mg/dL Calcium 9.0 8.5 - 10.3 mg/dL CRP (acute phase) Collection Time: 04/30/21 4:58 AM Result Value Ref Range CRP 40.6 (H) <=10.0 mg/L D-dimer, quantitative Collection Time: 04/30/21 4:58 AM Result Value Ref Range D-Dimer 5,386 (H) <=499 ng/mL FEU eGFR Collection Time: 04/30/21 4:58 AM Result Value Ref Range eGFR 117 mL/min/1.73 m2 Assessment and Plan: Principal Problem: Pneumonia due to COVID-19 virus Active Problems: Hyperlipidemia Hypothyroidism Acute respiratory failure with hypoxia (CMS/HCC) (HCC) Elevated AST (SGOT) Dehydration 1. Acute hypoxemic respiratory failure. Secondary to COVID-19 pneumonia. Continues to do well. Was on Opti Flow FiO2 55 liters/minute - now weaned down to HF NC 15 L. 2. COVID-19 pneumonia. Patient has now completed 5 day course of IV remdesivir. Remains on IV Decadron and on Baricitinib. Continue to monitor respiratory status very closely. 3. Type 2 diabetes. Continue Lantus 10 units q.h.s.. Monitor Accu-Cheks q.a.c. q.h.s. adjust with alow-dose sliding scale as needed. 4. Hypothyroidism. Continue Synthroid 75 mcg daily. 5. Leukocytosis. Could be from de marginalization from steroids. Monitor closely. 6. Fen. Electrolytes stable. Disposition: Continues to do well. Was on Opti Flow FiO2 55 liters/minute - now weaned down to HF NC 15 L. Medical decision making complexity: Intermediate Laura Chung MD Hospitalist [phone] 18:30 AM * Javon Kauffman MD - 04/30/2021 10:03 AM CDT Pulmonary Daily Progress Chief complaint/reason for consult: Covid 19. Interval History: Now on 15L HFNC, improving Breathing comf occ cough No fevers Presenting History: 46 yo woman w hypothyroidism and BMI 44 admitted 04/14 after presenting to the ED with shortness of breath. Sx present about a week. Started w cough. No chest pain. COVID positive. also hospitalized w COVID. No pre-existing lung disease. CT chest with diffuse patchy gg infiltrates consistent w COVID. Steroids began 04/14 Remdesivir started 04/14 Strep screen + on 04/08/21 Covid 19 + pcr 04/08/21 Allergies: No Known Allergies Medications: Scheduled Meds:cetirizine, 10 mg, oral, Daily enoxaparin, 40 mg, subcutaneous, Q12H DEMETRIA insulin glargine, 10 Units, subcutaneous, Nightly insulin lispro, 0-4 Units, subcutaneous, Nightly insulin lispro, 0-5 Units, subcutaneous, TID with meals insulin lispro, 4 Units, subcutaneous, TID with meals levothyroxine, 75 mcg, oral, Daily - [address], 40 mg, oral, Daily Continuous Infusions: PRN Meds:.??? acetaminophen ??? benzocaine-menthoL ??? dextrose OR dextrose ??? glucagon ??? hydrOXYzine ??? ondansetron ODT OR ondansetron ??? sodium chloride ??? traZODone ROS Above review of system reviewed on 04/30/2021 Vitals: Vitals: 04/30/21 0700 04/30/21 0800 04/30/21 0840 04/30/21 0900 BP: 120/67 115/72 94/58 Pulse: 84 82 112 110 Resp: (!) 31 8 22 24 Temp: TempSrc: SpO2: 94% 94% 92% 92% Weight: Height: Temp (24hrs), Av.8 ??C (98.3 ??F), Min:36.6 ??C (97.9 ??F), Max:37 ??C (98.6 ??F) FiO2 (%): [75 %] 75 % Intake/Output Summary (Last 24 hours) at 04/30/2021 1003 Last data filed at 04/29/2021 2135 Gross per 24 hour Intake 985 ml Output 300 ml Net 685 ml Physical Exam Vitals and nursing note reviewed. Constitutional: Appearance: She is obese. HENT: Head: Normocephalic and atraumatic. Nose: Nose normal. Eyes: General: No scleral icterus. Cardiovascular: Rate and Rhythm: Normal rate and regular rhythm. Heart sounds: No murmur heard. Pulmonary: Effort: No respiratory distress. Breath sounds: No wheezing or rales. Abdominal: General: Abdomen is flat. Palpations: Abdomen is soft. Musculoskeletal: Right lower leg: No edema. Left lower leg: No edema. Skin: General: Skin is warm and dry. Neurological: Mental Status: She is alert. Psychiatric: Behavior: Behavior normal. Lab/Radiology/Diagnostic Review: Labs: Recent Labs Lab Units 04/30/21 0428 04/29/21 0350 04/28/21 0500 WBC K/cumm 13.4* 11.9* 12.7* HEMOGLOBIN g/dL 10.8* 11.0* 11.1* HEMATOCRIT % 35.1* 35.0* 36.2 PLATELETS K/cumm 258 265 258 NEUTROS PCT % 76.6 76.8 78.8 LYMPHS PCT % 12.4 13.3 12.0 MONOS PCT % 6.8 6.1 6.1 EOS PCT % 3.4 2.9 2.3 Recent Labs Lab Units 04/30/21 0830 04/30/21 0458 04/29/21 1957 04/29/21 0730 04/29/21 0349 04/28/21 0806 04/28/21 0500 SODIUM mmol/L -- 140 -- -- 139 -- 139 POTASSIUM PLASMA mmol/L -- 3.6 -- -- 4.1 -- 3.8 CHLORIDE mmol/L -- 99 -- -- 100 -- 100 CO2 mmol/L -- 29 -- -- 28 -- 29 ANIONGAP mmol/L -- 12 -- -- 11 -- 10 GLUCOSE mg/dL -- 140 -- -- 117 < > 121 POC GLUCOSE MONITOR mg/dL 125 -- 253* < > -- < > -- BUN SERUM mg/dL -- 15 -- -- 17 -- 13 CREATININE mg/dL -- 0.49* -- -- 0.46* -- 0.43* CALCIUM mg/dL -- 9.0 -- -- 8.8 -- 8.7 < > = values in this interval not displayed. Recent Labs Lab Units 04/30/21 0458 04/24/21 0739 D DIMER ng/mL FEU 5,386* 5,236* CRP mg/L 40.6* 69.6* Imaging: CXR 04/14 bilateral patchy ground-glass infiltrate left greater than right Other diagnostic tests: I have personally reviewed above laboratory findings, chest imaging, and diagnostic tests 04/30/2021 Assessment and Plan: COVID 19, dx 04/14, symptom onset approx 04/08/21 positive test on 04/08/2021 Acute respiratory failure Hypothyroidism BMI 44 ?? Recs: O2 as required, wean DVT prophylaxis Dexamethasone x 10 days, completed remdesivir x5 days, completed baricitinib started 04/15, completed Monitor cbc and kidney fxn IS Increase activity/PT Chart reviewed * Laura Chung MD - 04/29/2021 2:23 PM CDT General Medicine Progress Note Interval Events: Overall respiratory status continues to improve. Patient remains on Opti Flow. Remains on IV Decadron - completed course of IV Remdesevir. Subjective: Chief complaint: Shortness of breath. Patient has no new complaints. Objective: Vitals: 24hr Min/Max: Temp Min: 36.7 ??C (98 ??F) Max: 37 ??C (98.6 ??F) Pulse Min: 68 Max: 102 BP Min: 100/56 Max: 125/78 Resp Min: 13 Max: 37 SpO2 Min: 90 % Max: 99 % Most Recent: Vitals: 04/29/21199904/29/21 2100 04/29/21210304/29/21 2200 BP: 116/75 107/67 BP Location: Patient Position: Pulse: 93 75 99 Resp: 13 22 20 Temp: 37 ??C (98.6 ??F) TempSrc: Oral SpO2: 91% 94% 95% Weight: Height: Intake/Output Summary (Last 24 hours) at 04/29/2021 2215 Last data filed at 04/29/2021 2135 Gross per 24 hour Intake 1595 ml Output 300 ml Net 1295 ml Physical Exam: Physical Exam GEN: Alert. NAD HENT: Normocephalic. Atraumatic. CVS: RRR CHEST: Coarse breath sounds bilaterally. ABD: soft. ND EXT: no edema Lab/Radiology/Diagnostic Review: Reviewed. Recent Results (from the past 24 hour(s)) Basic metabolic panel Collection Time: 04/29/21 3:49 AM Result Value Ref Range Sodium 139 135 - 145 mmol/L Potassium, pl 4.1 3.3 - 4.9 mmol/L Chloride 100 97 - 110 mmol/L CO2 28 22 - 32 mmol/L Anion gap 11 2 - 15 mmol/L BUN 17 8 - 25 mg/dL Creatinine 0.46 (L) 0.60 - 1.10 mg/dL Glucose 117 70 - 199 mg/dL Calcium 8.8 8.5 - 10.3 mg/dL eGFR Collection Time: 04/29/21 3:49 AM Result Value Ref Range eGFR 119 mL/min/1.73 m2 CBC with auto differential Collection Time: 04/29/21 3:50 AM Result Value Ref Range WBC 11.9 (H) 3.8 - 9.9 K/cumm Hgb 11.0 (L) 11.9 - 15.5 g/dL Hct 35.0 (L) 35.6 - 45.5 % Plt 265 150 - 400 K/cumm MPV 12.7 (H) 9.1 - 12.3 fL RBC 3.90 3.90 - 5.20 M/cumm MCV 89.7 81.3 - 96.4 fL MCH 28.2 27.1 - 33.3 pg MCHC 31.4 (L) 32.3 - 35.7 g/dL RDW CV 15.5 (H) 11.1 - 14.9 % RDW SD 50.3 (H) 35.7 - 48.1 fL NRBC abs 0.00 0.00 - 0.01 K/cumm Differential, auto Collection Time: 04/29/21 3:50 AM Result Value Ref Range Neutrophil abs 9.2 (H) 1.7 - 6.5 K/cumm Imm gran abs 0.1 0.0 - 0.1 K/cumm Lymphocyte abs 1.6 0.8 - 3.3 K/cumm Monocyte abs 0.7 0.2 - 0.8 K/cumm Eosinophil abs 0.4 0.0 - 0.5 K/cumm Basophil abs 0.0 0.0 - 0.1 K/cumm Neutrophil pct 76.8 % Imm gran pct 0.6 % Lymphocyte pct 13.3 % Monocyte pct 6.1 % Eosinophil pct 2.9 % Basophil pct 0.3 % POCT glucose Collection Time: 04/29/21 7:30 AM Result Value Ref Range Glucose, POC 108 70 - 199 mg/dL POCT glucose Collection Time: 04/29/21 11:16 AM Result Value Ref Range Glucose, POC 253 (H) 70 - 199 mg/dL POCT glucose Collection Time: 04/29/21 5:48 PM Result Value Ref Range Glucose, POC 272 (H) 70 - 199 mg/dL POCT glucose Collection Time: 04/29/21 7:57 PM Result Value Ref Range Glucose, POC 253 (H) 70 - 199 mg/dL Assessment and Plan: Principal Problem: Pneumonia due to COVID-19 virus Active Problems: Hyperlipidemia Hypothyroidism Acute respiratory failure with hypoxia (CMS/HCC) (HCC) Elevated AST (SGOT) Dehydration 1. Acute hypoxemic respiratory failure. Secondary to COVID-19 pneumonia. Will continue to monitor respiratory status is closely. Doing well on Opti Flow. Wean as tolerated. 2. COVID-19 pneumonia. Patient has now completed 5 day course of IV remdesivir. On IV Decadron for 10 days. On Baricitinib. Continue to monitor respiratory status very closely. 3. Type 2 diabetes. Continue Lantus 10 units q.h.s.. Monitor Accu-Cheks q.a.c. q.h.s. adjust with alow-dose sliding scale as needed. 4. Hypothyroidism. Continue Synthroid 75 mcg daily. 5. Leukocytosis. Could be from de marginalization from steroids. Monitor closely. 6. Fen. Electrolytes stable. Disposition: Doing well. Completed IV Remdesevir. Now on IV Decadron. Medical decision making complexity: Intermediate Laura Chung MD Hospitalist [phone] 110:15 PM * Shaina Verdugo, ROBERT - 04/29/2021 2:10 PM CDT Nutrition Assessment Reason for Assessment: Follow Up Encounter Date: 04/29/21 2:10 PM Nutrition Assessment and Plan: Patient is a 46 y.o. female. Admit Dx: PNEUMONIA DUE TO COVID-19. Admitted on 04/14/2021, current LOS is 15 days. Pt admit with SOB, COVID 19. On optiflow and breathing comfortably per note. Afebrile. Completed steroid. PO intakes have been adequate recently, will continue supplements as Pt has increased needs w COVID. Weight has remained stable since admission. GI: WNL, no c/o N/V/D/C Skin: intact Lab values: reviewed, POC Glu >200 Fluid: net -8.2L since 04/15 Current diet order: Adult Diet Special; Consistent Carb 2000 armen Pt intake is adequate. PO intakes: 100% Supplement Order: Ensure High Protein Flavor: Any with all meals. Supplement intake: 100% Nutrition Diagnosis 1: Altered nutrition-related laboratory values Related to: Physiologic issue (endocrine dysfunction) Evidenced by: Lab abnormality (Hemoglobin A1C= 7.1. Recently elevated Glucose Labs) Nutrition Diagnosis 2: Increased nutrient needs (protein)Related to: Physiologic issueEvidenced by:Other (comment) (COVID-19) ?? Interventions: Communication (continue consistent carb diet) ?? Monitoring and Evaluation: Plan of care, Labs, PO intake, Supplement tolerance, GI output, Discharge plans, Weight changes, I/O ?? Goals: Adequate nutrition to meet estimated needs by next assessment, Oral intake to meet 75% estimated nutritional needs by next assessment, Tolerance of medical food supplement by next assessment Estimated needs: ?? Total Kcal/kg Estimated Needs : 2264.08 based on Kcal/k. Type of Weight Used for Estimated Kcals: Current ?? Total Protein Estimated Needs (gm): 125.78 Protein Needs Based on g/k.0 Type of Weight Used for Estimated Protein : Current. ?? Total Fluid Estimated Needs: 2264.08 Fluid Needs Based on : 1 ml/kcal. . Objective Anthropometrics Weight: 125.8 kg (277 lb 4.8 oz) Admission Weight : 125.8 kg Weight Change: -5.76 kg (-12.70 lbs) IBW/kg (Calculated) : 63.5 kg Height: 172.7 cm (5' 7.99 ) Weight in (lb) to have BMI = 25: 164 BMI (Calculated): 42.2 BMI Classification: BMI > or equal to 40.0 Class III 3 Day I/O Summary 04/270 - 04/29 0659 In: 1690 [P.O.:1680; I.V.:10] Out: 750 [Urine:750] Temp: 36.8 ??C (98.3 ??F) Past Medical History: Diagnosis Date ??? Thyroid disease Medications and Lab Review: Scheduled Meds: cetirizine, 10 mg, oral, Daily enoxaparin, 40 mg, subcutaneous, Q12H DEMETRIA insulin glargine, 10 Units, subcutaneous, Nightly insulin lispro, 0-4 Units, subcutaneous, Nightly insulin lispro, 0-5 Units, subcutaneous, TID with meals insulin lispro, 4 Units, subcutaneous, TID with meals levothyroxine, 75 mcg, oral, Daily - [address], 40 mg, oral, Daily Continuous Infusions: Sodium Date Value Ref Range Status 04/29/2021 139 135 - 145 mmol/L Final Potassium, pl Date Value Ref Range Status 04/29/2021 4.1 3.3 - 4.9 mmol/L Final BUN Date Value Ref Range Status 04/29/2021 17 8 - 25 mg/dL Final Creatinine Date Value Ref Range Status 04/29/2021 0.46 (L) 0.60 - 1.10 mg/dL Final Calcium Date Value Ref Range Status 04/29/2021 8.8 8.5 - 10.3 mg/dL Final Lab Results Component Value Date HGBA1C 7.1 (H) 04/17/2021 Lab Results Component Value Date GLUCOSE 253 (H) 04/29/2021 GLUCOSE 108 04/29/2021 GLUCOSE 117 04/29/2021 GLUCOSE 213 (H) 04/28/2021 GLUCOSE 221 (H) 04/28/2021 GLUCOSE 265 (H) 04/28/2021 GLUCOSE 121 04/28/2021 GLUCOSE 127 04/27/2021 Nursing Assessment: Last BM Date: 04/28/21 Bowel Sounds (All Quadrants): Active Carlos Scale Score: 20 Skin Integrity: Rash Diet Instructions Dietitian recommends consistent carbohydrate diet on discharge. -Read the nutrition facts label on packages for serving size and eat 60-75 grams of carbohydrates per meal. Eat 3 meals per day, try to eat at regular times. Limit concentrated sweets/desserts, cookies, cake, candy, ice cream, and sweetened beverages (regular soda, lemonade, gatorade, and sweet tea). Monitor blood sugars and take medications as directed by your doctor. Additional resources available from the [place] [employer] can be found at www.diabetes.org/nutrition -Eat a variety of healthy foods from all the food groups. Eat fruits, vegetables, whole grains, andfat-free or low-fat dairy foods. Whole grains include whole-wheat breads, cereals, pasta, and brownrice. Choose lean meats, poultry (chicken and turkey), fish, beans, eggs, and nuts. A healthy meal plan is low in unhealthy fats, salt, and added sugar. Healthy fats include olive oil and canola oil.Recommend to avoid sugary drinks like lemonade, regular soda, gatorade, and sweet tea. Additional resources are available online from the Academy of [employer] and [employer]etics at www.eatright.org Drink Ensure High Protein or Glucerna 1-2 times daily to promote adequate Calorie/Protein intakes. Please call the dietitian's office at [phone] if you have questions about nutrition. If you would like to see our outpatient dietitian please have your physician fax a referral to [phone], and you may call [phone] to make an appointment. Nutrition Follow-Up : 05/06/[address],LD * Javon Kauffman MD - 04/29/2021 11:01 AM CDT Pulmonary Daily Progress Chief complaint/reason for consult: Covid 19. Interval History: on Opti Flow 75% FiO2 55 liters/minute Breathing comf occ cough No fevers Presenting History: 46 yo woman w hypothyroidism and BMI 44 admitted 04/14 after presenting to the ED with shortness of breath. Sx present about a week. Started w cough. No chest pain. COVID positive. also hospitalized w COVID. No pre-existing lung disease. CT chest with diffuse patchy gg infiltrates consistent w COVID. Steroids began 04/14 Remdesivir started 04/14 Strep screen + on 04/08/21 Covid 19 + pcr 04/08/21 Allergies: No Known Allergies Medications: Scheduled Meds:cetirizine, 10 mg, oral, Daily dexAMETHasone, 6 mg, intravenous, Q24H DEMETRIA enoxaparin, 40 mg, subcutaneous, Q12H DEMETRIA insulin glargine, 10 Units, subcutaneous, Nightly insulin lispro, 0-4 Units, subcutaneous, Nightly insulin lispro, 0-5 Units, subcutaneous, TID with meals insulin lispro, 4 Units, subcutaneous, TID with meals levothyroxine, 75 mcg, oral, Daily - [address], 40 mg, oral, Daily Continuous Infusions: PRN Meds:.??? acetaminophen ??? benzocaine-menthoL ??? dextrose OR dextrose ??? glucagon ??? hydrOXYzine ??? ondansetron ODT OR ondansetron ??? sodium chloride ??? traZODone ROS Above review of system reviewed on 04/29/2021 Vitals: Vitals: 04/29/21 0700 04/29/21 0800 04/29/21 0900 04/29/21 1041 BP: 108/72 110/61 115/70 BP Location: Left arm Patient Position: Lying Pulse: 71 91 99 Resp: (!) 34 22 22 Temp: TempSrc: SpO2: 96% 92% 91% 95% Weight: Height: Temp (24hrs), Av.7 ??C (98.1 ??F), Min:36.6 ??C (97.9 ??F), Max:36.9 ??C (98.5 ??F) FiO2 (%): [75 %-80 %] 75 % Intake/Output Summary (Last 24 hours) at 04/29/2021 1101 Last data filed at 04/29/2021 0620 Gross per 24 hour Intake 1210 ml Output -- Net 1210 ml Physical Exam Vitals and nursing note reviewed. Constitutional: Appearance: She is obese. HENT: Head: Normocephalic and atraumatic. Nose: Nose normal. Eyes: General: No scleral icterus. Cardiovascular: Rate and Rhythm: Normal rate and regular rhythm. Heart sounds: No murmur heard. Pulmonary: Effort: No respiratory distress. Breath sounds: No wheezing or rales. Abdominal: General: Abdomen is flat. Palpations: Abdomen is soft. Musculoskeletal: Right lower leg: No edema. Left lower leg: No edema. Skin: General: Skin is warm and dry. Neurological: Mental Status: She is alert. Psychiatric: Behavior: Behavior normal. Lab/Radiology/Diagnostic Review: Labs: Recent Labs Lab Units 04/29/21 0350 04/28/21 0500 04/27/21 0400 WBC K/cumm 11.9* 12.7* 14.0* HEMOGLOBIN g/dL 11.0* 11.1* 10.8* HEMATOCRIT % 35.0* 36.2 34.1* PLATELETS K/cumm 265 258 257 NEUTROS PCT % 76.8 78.8 81.0 LYMPHS PCT % 13.3 12.0 10.3 MONOS PCT % 6.1 6.1 6.5 EOS PCT % 2.9 2.3 1.6 Recent Labs Lab Units 04/29/21 0730 04/29/21 0349 04/28/21 2036 04/28/21 0806 04/28/21 0500 04/27/21 0826 04/27/21 0400 SODIUM mmol/L -- 139 -- -- 139 -- 137 POTASSIUM PLASMA mmol/L -- 4.1 -- -- 3.8 -- 4.2 CHLORIDE mmol/L -- 100 -- -- 100 -- 99 CO2 mmol/L -- 28 -- -- 29 -- 29 ANIONGAP mmol/L -- 11 -- -- 10 -- 9 GLUCOSE mg/dL -- 117 -- -- 121 < > 127 POC GLUCOSE MONITOR mg/dL 108 -- 213* < > -- < > -- BUN SERUM mg/dL -- 17 -- -- 13 -- 14 CREATININE mg/dL -- 0.46* -- -- 0.43* -- 0.45* CALCIUM mg/dL -- 8.8 -- -- 8.7 -- 8.7 < > = values in this interval not displayed. Recent Labs Lab Units 04/24/21 0739 D DIMER ng/mL FEU 5,236* CRP mg/L 69.6* Imaging: CXR 04/14 bilateral patchy ground-glass infiltrate left greater than right Other diagnostic tests: I have personally reviewed above laboratory findings, chest imaging, and diagnostic tests 04/29/2021 Assessment and Plan: COVID 19, dx 04/14, symptom onset approx 04/08/21 positive test on 04/08/2021 Acute respiratory failure Hypothyroidism BMI 44 ?? Recs: O2 as required DVT prophylaxis Dexamethasone x 10 days, completed remdesivir x5 days, completed baricitinib started 04/15 Monitor cbc and kidney fxn IS Chart reviewed * Laura Chung MD - 04/28/2021 9:23 AM CDT General Medicine Progress Note Interval Events: Patient continues to do well. Overall respiratory status continues to improve. Patient remains on Opti Flow. Weaning down - pulmonary Medicine is following. Subjective: Chief complaint: Shortness of breath. Patient has no new complaints. Denies any dyspnea. Objective: Vitals: 24hr Min/Max: Temp Min: 36.3 ??C (97.3 ??F) Max: 36.7 ??C (98.1 ??F) Pulse Min: 72 Max: 98 BP Min: 120/66 Max: 122/66 Resp Min: 16 Max: 36 SpO2 Min: 88 % Max: 99 % Most Recent: Vitals: 04/28/21 0400 04/28/21 0419 04/28/21 0500 04/28/21 0600 BP: BP Location: Patient Position: Pulse: 81 86 76 Resp: 25 26 (!) 31 Temp: TempSrc: SpO2: 92% (!) 89% 93% 97% Weight: Height: Intake/Output Summary (Last 24 hours) at 04/28/2021 0928 Last data filed at 04/28/2021 0340 Gross per 24 hour Intake -- Output 1950 ml Net -1950 ml Physical Exam: Physical Exam GEN: Alert. NAD HENT: Normocephalic. Atraumatic. CVS: RRR CHEST: Coarse breath sounds bilaterally. ABD: soft. ND EXT: no edema Lab/Radiology/Diagnostic Review: Reviewed. Recent Results (from the past 24 hour(s)) POCT glucose Collection Time: 04/27/21 1:26 PM Result Value Ref Range Glucose, POC 265 (H) 70 - 199 mg/dL POCT glucose Collection Time: 04/27/21 6:40 PM Result Value Ref Range Glucose, POC 235 (H) 70 - 199 mg/dL POCT glucose Collection Time: 04/27/21 8:28 PM Result Value Ref Range Glucose, POC 296 (H) 70 - 199 mg/dL CBC with auto differential Collection Time: 04/28/21 5:00 AM Result Value Ref Range WBC 12.7 (H) 3.8 - 9.9 K/cumm Hgb 11.1 (L) 11.9 - 15.5 g/dL Hct 36.2 35.6 - 45.5 % Plt 258 150 - 400 K/cumm MPV 12.2 9.1 - 12.3 fL RBC 3.95 3.90 - 5.20 M/cumm MCV 91.6 81.3 - 96.4 fL MCH 28.1 27.1 - 33.3 pg MCHC 30.7 (L) 32.3 - 35.7 g/dL RDW CV 15.3 (H) 11.1 - 14.9 % RDW SD 50.6 (H) 35.7 - 48.1 fL NRBC abs 0.00 0.00 - 0.01 K/cumm Basic metabolic panel Collection Time: 04/28/21 5:00 AM Result Value Ref Range Sodium 139 135 - 145 mmol/L Potassium, pl 3.8 3.3 - 4.9 mmol/L Chloride 100 97 - 110 mmol/L CO2 29 22 - 32 mmol/L Anion gap 10 2 - 15 mmol/L BUN 13 8 - 25 mg/dL Creatinine 0.43 (L) 0.60 - 1.10 mg/dL Glucose 121 70 - 199 mg/dL Calcium 8.7 8.5 - 10.3 mg/dL Differential, auto Collection Time: 04/28/21 5:00 AM Result Value Ref Range Neutrophil abs 10.0 (H) 1.7 - 6.5 K/cumm Imm gran abs 0.1 0.0 - 0.1 K/cumm Lymphocyte abs 1.5 0.8 - 3.3 K/cumm Monocyte abs 0.8 0.2 - 0.8 K/cumm Eosinophil abs 0.3 0.0 - 0.5 K/cumm Basophil abs 0.0 0.0 - 0.1 K/cumm Neutrophil pct 78.8 % Imm gran pct 0.6 % Lymphocyte pct 12.0 % Monocyte pct 6.1 % Eosinophil pct 2.3 % Basophil pct 0.2 % eGFR Collection Time: 04/28/21 5:00 AM Result Value Ref Range eGFR 122 mL/min/1.73 m2 POCT glucose Collection Time: 04/28/21 8:06 AM Result Value Ref Range Glucose, POC 116 70 - 199 mg/dL Assessment and Plan: Principal Problem: Pneumonia due to COVID-19 virus Active Problems: Hyperlipidemia Hypothyroidism Acute respiratory failure with hypoxia (CMS/HCC) (HCC) Elevated AST (SGOT) Dehydration 1. Acute hypoxemic respiratory failure. Secondary to COVID-19 pneumonia. Will continue to monitor respiratory status is closely. Patient currently on Opti Flow. Will continue current treatment regimen. Monitor closely. 2. COVID-19 pneumonia. Patient has now completed 5 day course of IV remdesivir. On IV Decadron for 10 days. On Baricitinib. Continue to monitor respiratory status very closely. 3. Type 2 diabetes. Continue Lantus 10 units q.h.s.. Monitor Accu-Cheks q.a.c. q.h.s. adjust with alow-dose sliding scale as needed. 4. Hypothyroidism. Continue Synthroid 75 mcg daily. 5. Leukocytosis. Could be from de marginalization from steroids. Monitor closely. 6. Fen. Electrolytes stable. Disposition: Respiratory status continues to improve. On OptiFlow. Monitor closely. Medical decision making complexity: Intermediate Laura Chung MD Hospitalist [phone] 19:28 AM * Javon Kauffman MD - 04/28/2021 9:05 AM CDT Pulmonary Daily Progress Chief complaint/reason for consult: Covid 19. Interval History: on Opti Flow 80% FiO2 50 liters/minute Breathing comf More cough No fevers Presenting History: 46 yo woman w hypothyroidism and BMI 44 admitted 04/14 after presenting to the ED with shortness of breath. Sx present about a week. Started w cough. No chest pain. COVID positive. also hospitalized w COVID. No pre-existing lung disease. CT chest with diffuse patchy gg infiltrates consistent w COVID. Steroids began 04/14 Remdesivir started 04/14 Strep screen + on 04/08/21 Covid 19 + pcr 04/08/21 Allergies: No Known Allergies Medications: Scheduled Meds:cetirizine, 10 mg, oral, Daily dexAMETHasone, 6 mg, intravenous, Q24H DEMETRIA enoxaparin, 40 mg, subcutaneous, Q12H DEMETRIA insulin glargine, 10 Units, subcutaneous, Nightly insulin lispro, 0-4 Units, subcutaneous, Nightly insulin lispro, 0-5 Units, subcutaneous, TID with meals insulin lispro, 4 Units, subcutaneous, TID with meals levothyroxine, 75 mcg, oral, Daily - [address], 40 mg, oral, Daily Continuous Infusions: PRN Meds:.??? benzocaine-menthoL ??? dextrose OR dextrose ??? glucagon ??? hydrOXYzine ??? ondansetron ODT OR ondansetron ??? sodium chloride ??? traZODone ROS Above review of system reviewed on 04/28/2021 Vitals: Vitals: 04/28/21 0400 04/28/21 0419 04/28/21 0500 04/28/21 0600 BP: BP Location: Patient Position: Pulse: 81 86 76 Resp: 25 26 (!) 31 Temp: TempSrc: SpO2: 92% (!) 89% 93% 97% Weight: Height: Temp (24hrs), Av.6 ??C (97.8 ??F), Min:36.3 ??C (97.3 ??F), Max:36.7 ??C (98.1 ??F) FiO2 (%): [70 %-100 %] 80 % Intake/Output Summary (Last 24 hours) at 04/28/2021 0906 Last data filed at 04/28/2021 0340 Gross per 24 hour Intake -- Output 1950 ml Net -1950 ml Physical Exam Vitals and nursing note reviewed. Constitutional: Appearance: She is obese. HENT: Head: Normocephalic and atraumatic. Nose: Nose normal. Eyes: General: No scleral icterus. Cardiovascular: Rate and Rhythm: Normal rate and regular rhythm. Heart sounds: No murmur heard. Pulmonary: Effort: No respiratory distress. Breath sounds: No wheezing, rhonchi or rales. Abdominal: General: Abdomen is flat. Palpations: Abdomen is soft. Musculoskeletal: Right lower leg: No edema. Left lower leg: No edema. Skin: General: Skin is warm and dry. Neurological: Mental Status: She is alert. Psychiatric: Behavior: Behavior normal. Lab/Radiology/Diagnostic Review: Labs: Recent Labs Lab Units 04/28/21 0500 04/27/21 0400 04/26/21 0529 WBC K/cumm 12.7* 14.0* 14.5* HEMOGLOBIN g/dL 11.1* 10.8* 11.1* HEMATOCRIT % 36.2 34.1* 35.2* PLATELETS K/cumm 258 257 265 NEUTROS PCT % 78.8 81.0 82.6 LYMPHS PCT % 12.0 10.3 8.2 MONOS PCT % 6.1 6.5 6.8 EOS PCT % 2.3 1.6 1.7 Recent Labs Lab Units 04/28/21 0806 04/28/21 0500 04/27/21202704/27/21 0826 04/27/21 0400 04/26/21 0858 04/26/21 0528 SODIUM mmol/L -- 139 -- -- 137 -- 137 POTASSIUM PLASMA mmol/L -- 3.8 -- -- 4.2 -- 4.3 CHLORIDE mmol/L -- 100 -- -- 99 -- 99 CO2 mmol/L -- 29 -- -- 29 -- 26 ANIONGAP mmol/L -- 10 -- -- 9 -- 12 GLUCOSE mg/dL -- 121 -- -- 127 < > 115 POC GLUCOSE MONITOR mg/dL 116 -- 296* < > -- < > -- BUN SERUM mg/dL -- 13 -- -- 14 -- 14 CREATININE mg/dL -- 0.43* -- -- 0.45* -- 0.43* CALCIUM mg/dL -- 8.7 -- -- 8.7 -- 8.8 < > = values in this interval not displayed. Recent Labs Lab Units 04/24/21 0739 D DIMER ng/mL FEU 5,236* CRP mg/L 69.6* Imaging: CXR 04/14 bilateral patchy ground-glass infiltrate left greater than right Other diagnostic tests: I have personally reviewed above laboratory findings, chest imaging, and diagnostic tests 04/28/2021 Assessment and Plan: COVID 19, dx 04/14, symptom onset approx 04/08/21 positive test on 04/08/2021 Acute respiratory failure Hypothyroidism BMI 44 ?? Recs: O2 as required DVT prophylaxis Dexamethasone x 10 days remdesivir x5 days, completed baricitinib started 04/15 Monitor cbc and kidney fxn IS Chart reviewed * Laura Chung MD - 04/27/2021 3:21 PM CDT General Medicine Progress Note Interval Events: Patient admitted with acute hypoxemic respiratory failure secondary to COVID-19 pneumonia. Patient's overall respiratory status continues to improve. Patient now off of BiPAP. Patient is weaning down appropriately on Opti Flow. Subjective: Chief complaint: Shortness of breath. Patient is in good spirits. She is doing well and tolerating her diet. Objective: Vitals: 24hr Min/Max: Temp Min: 36.4 ??C (97.6 ??F) Max: 37.1 ??C (98.8 ??F) Pulse Min: 80 Max: 112 BP Min: 104/61 Max: 126/78 Resp Min: 7 Max: 35 SpO2 Min: 88 % Max: 99 % Most Recent: Vitals: 04/27/21 1300 04/27/21 1329 04/27/21 1400 04/27/21 1451 BP: BP Location: Patient Position: Pulse: 92 98 Resp: 30 16 Temp: TempSrc: SpO2: 93% 93% (!) 88% 99% Weight: Height: Intake/Output Summary (Last 24 hours) at 04/27/2021 1532 Last data filed at 04/27/2021 1335 Gross per 24 hour Intake 600 ml Output 2800 ml Net -2200 ml Physical Exam: Physical Exam GEN: Alert. NAD HENT: Normocephalic. Atraumatic. CVS: RRR CHEST: Coarse breath sounds bilaterally. ABD: soft. ND EXT: no edema Lab/Radiology/Diagnostic Review: Reviewed. Recent Results (from the past 24 hour(s)) POCT glucose Collection Time: 04/26/21 5:29 PM Result Value Ref Range Glucose, POC 241 (H) 70 - 199 mg/dL POCT glucose Collection Time: 04/26/21 8:08 PM Result Value Ref Range Glucose, POC 251 (H) 70 - 199 mg/dL CBC with auto differential Collection Time: 04/27/21 4:00 AM Result Value Ref Range WBC 14.0 (H) 3.8 - 9.9 K/cumm Hgb 10.8 (L) 11.9 - 15.5 g/dL Hct 34.1 (L) 35.6 - 45.5 % Plt 257 150 - 400 K/cumm MPV 12.5 (H) 9.1 - 12.3 fL RBC 3.84 (L) 3.90 - 5.20 M/cumm MCV 88.8 81.3 - 96.4 fL MCH 28.1 27.1 - 33.3 pg MCHC 31.7 (L) 32.3 - 35.7 g/dL RDW CV 15.4 (H) 11.1 - 14.9 % RDW SD 49.1 (H) 35.7 - 48.1 fL NRBC abs 0.00 0.00 - 0.01 K/cumm Basic metabolic panel Collection Time: 04/27/21 4:00 AM Result Value Ref Range Sodium 137 135 - 145 mmol/L Potassium, pl 4.2 3.3 - 4.9 mmol/L Chloride 99 97 - 110 mmol/L CO2 29 22 - 32 mmol/L Anion gap 9 2 - 15 mmol/L BUN 14 8 - 25 mg/dL Creatinine 0.45 (L) 0.60 - 1.10 mg/dL Glucose 127 70 - 199 mg/dL Calcium 8.7 8.5 - 10.3 mg/dL Differential, auto Collection Time: 04/27/21 4:00 AM Result Value Ref Range Neutrophil abs 11.3 (H) 1.7 - 6.5 K/cumm Imm gran abs 0.1 0.0 - 0.1 K/cumm Lymphocyte abs 1.4 0.8 - 3.3 K/cumm Monocyte abs 0.9 (H) 0.2 - 0.8 K/cumm Eosinophil abs 0.2 0.0 - 0.5 K/cumm Basophil abs 0.0 0.0 - 0.1 K/cumm Neutrophil pct 81.0 % Imm gran pct 0.5 % Lymphocyte pct 10.3 % Monocyte pct 6.5 % Eosinophil pct 1.6 % Basophil pct 0.1 % eGFR Collection Time: 04/27/21 4:00 AM Result Value Ref Range eGFR 120 mL/min/1.73 m2 POCT glucose Collection Time: 04/27/21 8:26 AM Result Value Ref Range Glucose, POC 129 70 - 199 mg/dL POCT glucose Collection Time: 04/27/21 1:26 PM Result Value Ref Range Glucose, POC 265 (H) 70 - 199 mg/dL Assessment and Plan: Principal Problem: Pneumonia due to COVID-19 virus Active Problems: Hyperlipidemia Hypothyroidism Acute respiratory failure with hypoxia (CMS/HCC) (HCC) Elevated AST (SGOT) Dehydration 1. Acute hypoxemic respiratory failure. Secondary to COVID-19 pneumonia. Will continue to monitor respiratory status is closely. Patient currently on Opti Flow. Will continue current treatment regimen. Monitor closely. 2. COVID-19 pneumonia. Plan to continue with IV Solu-Medrol. Paitent on Baricitinib. Patient has now completed course of IV remdesivir. Continue to monitor respiratory status very closely. 3. Type 2 diabetes. Continue Lantus 10 units q.h.s.. Monitor Accu-Cheks q.a.c. q.h.s. adjust with alow-dose sliding scale as needed. 4. Hypothyroidism. Continue Synthroid 75 mcg daily. 5. Leukocytosis. Could be from de marginalization from steroids. Monitor closely. 6. Fen. Electrolytes stable. Disposition: Respiratory status continues to improve. Now off of BiPAP. On OptiFlow. Monitor closely. Medical decision making complexity: Intermediate Laura Chung MD Hospitalist [phone] 13:32 PM * Patricio Membreno MD - 04/27/2021 7:26 AM CDT Pulmonary Daily Progress Chief complaint/reason for consult: Covid 19. Interval History: Remains on Opti Flow 75% FiO2 50 liters/minute. Remains on dexamethasone and baricitnib Presenting History: 46 yo woman w hypothyroidism and BMI 44 admitted 04/14 after presenting to the ED with shortness of breath. Sx present about a week. Started w cough. No chest pain. COVID positive. also hospitalized w COVID. No pre-existing lung disease. CT chest with diffuse patchy gg infiltrates consistent w COVID. Steroids began 04/14 Remdesivir started 04/14 Strep screen + on 04/08/21 Covid 19 + pcr 04/08/21 Allergies: No Known Allergies Medications: Scheduled Meds:baricitinib, 4 mg, oral, Daily cetirizine, 10 mg, oral, Daily dexAMETHasone, 6 mg, intravenous, Q24H DEMETRIA enoxaparin, 40 mg, subcutaneous, Q12H DEMETRIA insulin glargine, 10 Units, subcutaneous, Nightly insulin lispro, 0-4 Units, subcutaneous, Nightly insulin lispro, 0-5 Units, subcutaneous, TID with meals insulin lispro, 4 Units, subcutaneous, TID with meals levothyroxine, 75 mcg, oral, Daily - [address], 40 mg, oral, Daily Continuous Infusions: PRN Meds:.benzocaine-menthoL ??? dextrose OR dextrose ??? glucagon ??? hydrOXYzine ??? ondansetron ODT OR ondansetron ??? sodium chloride ??? traZODone ROS Above review of system reviewed on 04/27/2021 Vitals: Vitals: 04/27/21 0350 04/27/21 0355 04/27/21 0500 04/27/21 0600 BP: 104/61 BP Location: Left arm Patient Position: Lying Pulse: 98 87 87 Resp: 26 26 (!) 35 Temp: 36.4 ??C (97.6 ??F) TempSrc: Temporal SpO2: 94% 93% 91% 93% Weight: Height: Temp (24hrs), Av.8 ??C (98.3 ??F), Min:36.4 ??C (97.6 ??F), Max:37.1 ??C (98.8 ??F) FiO2 (%): [70 %-95 %] 75 % Intake/Output Summary (Last 24 hours) at 04/27/2021 0726 Last data filed at 04/27/2021 0445 Gross per 24 hour Intake 1700 ml Output 2600 ml Net -900 ml Physical Exam Vitals and nursing note reviewed. Constitutional: Appearance: She is obese. HENT: Head: Normocephalic and atraumatic. Nose: Nose normal. Eyes: General: No scleral icterus. Cardiovascular: Rate and Rhythm: Normal rate and regular rhythm. Heart sounds: No murmur heard. Pulmonary: Effort: No respiratory distress. Breath sounds: No wheezing or rales. Abdominal: General: Abdomen is flat. Palpations: Abdomen is soft. Musculoskeletal: General: Normal range of motion. Right lower leg: No edema. Left lower leg: No edema. Skin: General: Skin is warm and dry. Neurological: Mental Status: She is alert. Psychiatric: Behavior: Behavior normal. Lab/Radiology/Diagnostic Review: Labs: Recent Labs Lab Units 04/27/2139904/26/21 0529 04/25/21 0302 WBC K/cumm 14.0* 14.5* 12.8* HEMOGLOBIN g/dL 10.8* 11.1* 10.3* HEMATOCRIT % 34.1* 35.2* 33.2* PLATELETS K/cumm 257 265 251 NEUTROS PCT % 81.0 82.6 83.2 LYMPHS PCT % 10.3 8.2 8.8 MONOS PCT % 6.5 6.8 6.0 EOS PCT % 1.6 1.7 1.3 Recent Labs Lab Units 04/27/21 0400 04/26/21200704/26/21 1729 04/26/21 0858 04/26/21 0528 04/25/21 0803 04/25/21 0344 SODIUM mmol/L 137 -- -- -- 137 -- 140 POTASSIUM PLASMA mmol/L 4.2 -- -- -- 4.3 -- 4.3 CHLORIDE mmol/L 99 -- -- -- 99 -- 101 CO2 mmol/L 29 -- -- -- 26 -- 29 ANIONGAP mmol/L 9 -- -- -- 12 -- 10 GLUCOSE mg/dL 127 -- -- -- 115 < > 105 POC GLUCOSE MONITOR mg/dL -- 251* 241* < > -- < > -- BUN SERUM mg/dL 14 -- -- -- 14 -- 14 CREATININE mg/dL 0.45* -- -- -- 0.43* -- 0.49* CALCIUM mg/dL 8.7 -- -- -- 8.8 -- 8.5 < > = values in this interval not displayed. Recent Labs Lab Units 04/24/21 0739 D DIMER ng/mL FEU 5,236* CRP mg/L 69.6* Imaging: CXR 04/14 bilateral patchy ground-glass infiltrate left greater than right Other diagnostic tests: I have personally reviewed above laboratory findings, chest imaging, and diagnostic tests 04/27/2021 Assessment and Plan: COVID 19, dx 04/14, symptom onset approx 04/08/21 positive test on 04/08/2021 Acute respiratory failure Hypothyroidism BMI 44 ?? Recs: O2 as required, cpap as needed DVT prophylaxis Dexamethasone x 10 days remdesivir x5 days, completed baricitinib started 04/15 Monitor cbc and kidney fxn Continue to monitor CBC if patient spikes fever low threshold to start antibiotics IS Chart reviewed * Laura Chung MD - 04/26/2021 2:54 PM CDT General Medicine Progress Note Interval Events: Patient admitted with acute hypoxemic respiratory failure secondary to COVID-19 pneumonia. Patient now on Opti Flow. Using CPAP at night. Subjective: Chief complaint: Shortness of breath. Patient does report of dyspnea. Patient denies any chest tightness. Objective: Vitals: 24hr Min/Max: Temp Min: 36.8 ??C (98.2 ??F) Max: 37.1 ??C (98.8 ??F) Pulse Min: 65 Max: 99 BP Min: 106/56 Max: 125/55 Resp Min: 20 Max: 33 SpO2 Min: 88 % Max: 99 % Most Recent: Vitals: 04/26/21 0801 04/26/21 0900 04/26/21 1000 04/26/21 1017 BP: Pulse: 85 91 99 75 Resp: 23 27 20 Temp: TempSrc: SpO2: 90% 94% 98% Weight: Height: Intake/Output Summary (Last 24 hours) at 04/26/2021 1535 Last data filed at 04/26/2021 0800 Gross per 24 hour Intake 600 ml Output 2300 ml Net -1700 ml Physical Exam: Physical Exam GEN: Alert. NAD HENT: Normocephalic. Atraumatic. CVS: RRR CHEST: Coarse breath sounds bilaterally. ABD: soft. ND EXT: no edema Lab/Radiology/Diagnostic Review: Reviewed. Recent Results (from the past 24 hour(s)) POCT glucose Collection Time: 04/25/21 5:46 PM Result Value Ref Range Glucose, POC 279 (H) 70 - 199 mg/dL POCT glucose Collection Time: 04/25/21 9:18 PM Result Value Ref Range Glucose, POC 220 (H) 70 - 199 mg/dL Basic metabolic panel Collection Time: 04/26/21 5:28 AM Result Value Ref Range Sodium 137 135 - 145 mmol/L Potassium, pl 4.3 3.3 - 4.9 mmol/L Chloride 99 97 - 110 mmol/L CO2 26 22 - 32 mmol/L Anion gap 12 2 - 15 mmol/L BUN 14 8 - 25 mg/dL Creatinine 0.43 (L) 0.60 - 1.10 mg/dL Glucose 115 70 - 199 mg/dL Calcium 8.8 8.5 - 10.3 mg/dL eGFR Collection Time: 04/26/21 5:28 AM Result Value Ref Range eGFR 122 mL/min/1.73 m2 CBC with auto differential Collection Time: 04/26/21 5:29 AM Result Value Ref Range WBC 14.5 (H) 3.8 - 9.9 K/cumm Hgb 11.1 (L) 11.9 - 15.5 g/dL Hct 35.2 (L) 35.6 - 45.5 % Plt 265 150 - 400 K/cumm MPV 12.2 9.1 - 12.3 fL RBC 3.91 3.90 - 5.20 M/cumm MCV 90.0 81.3 - 96.4 fL MCH 28.4 27.1 - 33.3 pg MCHC 31.5 (L) 32.3 - 35.7 g/dL RDW CV 15.1 (H) 11.1 - 14.9 % RDW SD 49.3 (H) 35.7 - 48.1 fL NRBC abs 0.00 0.00 - 0.01 K/cumm Differential, auto Collection Time: 04/26/21 5:29 AM Result Value Ref Range Neutrophil abs 12.0 (H) 1.7 - 6.5 K/cumm Imm gran abs 0.1 0.0 - 0.1 K/cumm Lymphocyte abs 1.2 0.8 - 3.3 K/cumm Monocyte abs 1.0 (H) 0.2 - 0.8 K/cumm Eosinophil abs 0.3 0.0 - 0.5 K/cumm Basophil abs 0.0 0.0 - 0.1 K/cumm Neutrophil pct 82.6 % Imm gran pct 0.6 % Lymphocyte pct 8.2 % Monocyte pct 6.8 % Eosinophil pct 1.7 % Basophil pct 0.1 % POCT glucose Collection Time: 04/26/21 8:58 AM Result Value Ref Range Glucose, POC 126 70 - 199 mg/dL POCT glucose Collection Time: 04/26/21 11:57 AM Result Value Ref Range Glucose, POC 281 (H) 70 - 199 mg/dL Assessment and Plan: Principal Problem: Pneumonia due to COVID-19 virus Active Problems: Hyperlipidemia Hypothyroidism Acute respiratory failure with hypoxia (CMS/HCC) (HCC) Elevated AST (SGOT) Dehydration 1. Acute hypoxemic respiratory failure. Secondary to COVID-19 pneumonia. Will continue to monitor respiratory status is closely. Patient currently on Opti Flow. Will continue current treatment regimen. Monitor closely. 2. COVID-19 pneumonia. Plan to continue with IV Solu-Medrol. Paitent on Baricitinib. Patient has now completed course of IV remdesivir. Continue to monitor respiratory status very closely. 3. Type 2 diabetes. Continue Lantus 10 units q.h.s.. Monitor Accu-Cheks q.a.c. q.h.s. adjust with alow-dose sliding scale as needed. 4. Hypothyroidism. Continue Synthroid 75 mcg daily. 5. Leukocytosis. Could be from de marginalization from steroids. Monitor closely. 6. Fen. Electrolytes stable. Disposition: Patient admitted to the hospital with respiratory failure secondary to COVID-19 pneumonia. Continue to monitor respiratory status very closely. Medical decision making complexity: Intermediate Laura Chung MD Hospitalist [phone] 13:35 PM * Patricio Membreno MD - 04/26/2021 6:50 AM CDT Pulmonary Daily Progress Chief complaint/reason for consult: Covid 19. Interval History: On Opti Flow during the day and CPAP at night currently on 80% FiO2. Some skin breakdown on nose Breathing overall is somewhat improved. Has still some congestion. No fevers Presenting History: 46 yo woman w hypothyroidism and BMI 44 admitted 04/14 after presenting to the ED with shortness of breath. Sx present about a week. Started w cough. No chest pain. COVID positive. also hospitalized w COVID. No pre-existing lung disease. CT chest with diffuse patchy gg infiltrates consistent w COVID. Steroids began 04/14 Remdesivir started 04/14 Strep screen + on 04/08/21 Covid 19 + pcr 04/08/21 Allergies: No Known Allergies Medications: Scheduled Meds:baricitinib, 4 mg, oral, Daily cetirizine, 10 mg, oral, Daily dexAMETHasone, 6 mg, intravenous, Q24H DEMETRIA enoxaparin, 40 mg, subcutaneous, Q12H DEMETRIA insulin glargine, 10 Units, subcutaneous, Nightly insulin lispro, 0-4 Units, subcutaneous, Nightly insulin lispro, 0-5 Units, subcutaneous, TID with meals insulin lispro, 4 Units, subcutaneous, TID with meals levothyroxine, 75 mcg, oral, Daily - [address], 40 mg, oral, Daily Continuous Infusions: PRN Meds:.benzocaine-menthoL ??? dextrose OR dextrose ??? glucagon ??? hydrOXYzine ??? ondansetron ODT OR ondansetron ??? sodium chloride ??? traZODone ROS Above review of system reviewed on 04/26/2021 Vitals: Vitals: 04/26/21 0200 04/26/21 0300 04/26/21 0400 04/26/21 0500 BP: 125/55 Pulse: 72 82 71 80 Resp: (!) 33 (!) 32 (!) 33 29 Temp: 37.1 ??C (98.8 ??F) TempSrc: Axillary SpO2: 93% 99% 97% 96% Weight: Height: Temp (24hrs), Av.9 ??C (98.5 ??F), Min:36.8 ??C (98.2 ??F), Max:37.1 ??C (98.8 ??F) FiO2 (%): [80 %-100 %] 80 % Intake/Output Summary (Last 24 hours) at 04/26/2021 0650 Last data filed at 04/26/2021 0605 Gross per 24 hour Intake -- Output 2900 ml Net -2900 ml Physical Exam Vitals and nursing note reviewed. Constitutional: Appearance: She is obese. HENT: Head: Normocephalic and atraumatic. Nose: Nose normal. Eyes: General: No scleral icterus. Cardiovascular: Rate and Rhythm: Normal rate and regular rhythm. Heart sounds: No murmur heard. Pulmonary: Effort: No respiratory distress. Breath sounds: No wheezing or rales. Abdominal: General: Abdomen is flat. Palpations: Abdomen is soft. Musculoskeletal: General: Normal range of motion. Right lower leg: No edema. Left lower leg: No edema. Skin: General: Skin is warm and dry. Neurological: Mental Status: She is alert. Psychiatric: Behavior: Behavior normal. Lab/Radiology/Diagnostic Review: Labs: Recent Labs Lab Units 04/26/21 0529 04/25/21 0302 04/24/21 0739 WBC K/cumm 14.5* 12.8* 15.0* HEMOGLOBIN g/dL 11.1* 10.3* 11.8* HEMATOCRIT % 35.2* 33.2* 38.6 PLATELETS K/cumm 265 251 278 NEUTROS PCT % 82.6 83.2 82.7 LYMPHS PCT % 8.2 8.8 9.1 MONOS PCT % 6.8 6.0 6.0 EOS PCT % 1.7 1.3 1.5 Recent Labs Lab Units 04/26/21 0528 04/25/21 2118 04/25/21 1746 04/25/21 0803 04/25/21 0344 04/24/21 0814 04/24/21 0739 04/20/21 0934 04/20/21 0534 04/19/21 0829 04/19/21 0657 SODIUM mmol/L 137 -- -- -- 140 -- 140 < > 142 < > 143 POTASSIUM PLASMA mmol/L 4.3 -- -- -- 4.3 -- 4.3 < > 3.6 < > 3.8 CHLORIDE mmol/L 99 -- -- -- 101 -- 100 < > 106 < > 103 CO2 mmol/L 26 -- -- -- 29 -- 29 < > 29 < > 29 ANIONGAP mmol/L 12 -- -- -- 10 -- 11 < > 7 < > 11 GLUCOSE mg/dL 115 -- -- -- 105 < > 128 < > 128 < > 138 POC GLUCOSE MONITOR mg/dL -- 220* 279* < > -- < > -- < > -- < > -- BUN SERUM mg/dL 14 -- -- -- 14 -- 16 < > 16 < > 15 CREATININE mg/dL 0.43* -- -- -- 0.49* -- 0.62 < > 0.46* < > 0.59* CALCIUM mg/dL 8.8 -- -- -- 8.5 -- 8.7 < > 7.9* < > 8.3* ALBUMIN g/dL -- -- -- -- -- -- -- -- 2.7* -- 3.1* ALK PHOS Units/L -- -- -- -- -- -- -- -- 61 -- 70 ALT Units/L -- -- -- -- -- -- -- -- 28 -- 32 AST Units/L -- -- -- -- -- -- -- -- 28 -- 37 BILIRUBIN TOTAL mg/dL -- -- -- -- -- -- -- -- 0.4 -- 0.5 < > = values in this interval not displayed. Recent Labs Lab Units 04/24/21 0739 D DIMER ng/mL FEU 5,236* CRP mg/L 69.6* Imaging: CXR 04/14 bilateral patchy ground-glass infiltrate left greater than right Other diagnostic tests: I have personally reviewed above laboratory findings, chest imaging, and diagnostic tests 04/26/2021 Assessment and Plan: COVID 19, dx 04/14, symptom onset approx 04/08/21 positive test on 04/08/2021 Acute respiratory failure Hypothyroidism BMI 44 ?? Recs: O2 as required, cpap as needed DVT prophylaxis Dexamethasone x 10 days remdesivir x5 days, completed baricitinib started 04/15 Monitor cbc and kidney fxn Continue to monitor CBC if patient spikes fever low threshold to start antibiotics IS Chart reviewed * Javon Kauffman MD - 04/25/2021 10:26 AM CDT Pulmonary Daily Progress Chief complaint/reason for consult: Covid 19. Interval History: On optiflow 60L/100% w NRB, wore cpap overnight Some skin breakdown on nose Breathing feels fairly comf Some congestion Afebrile Presenting History: 46 yo woman w hypothyroidism and BMI 44 admitted 04/14 after presenting to the ED with shortness of breath. Sx present about a week. Started w cough. No chest pain. COVID positive. also hospitalized w COVID. No pre-existing lung disease. CT chest with diffuse patchy gg infiltrates consistent w COVID. Steroids began 04/14 Remdesivir started 04/14 Strep screen + on 04/08/21 Covid 19 + pcr 04/08/21 Allergies: No Known Allergies Medications: Scheduled Meds:baricitinib, 4 mg, oral, Daily cetirizine, 10 mg, oral, Daily dexAMETHasone, 6 mg, intravenous, Q24H DEMETRIA enoxaparin, 40 mg, subcutaneous, Q12H DEMETRIA insulin glargine, 10 Units, subcutaneous, Nightly insulin lispro, 0-4 Units, subcutaneous, Nightly insulin lispro, 0-5 Units, subcutaneous, TID with meals insulin lispro, 4 Units, subcutaneous, TID with meals levothyroxine, 75 mcg, oral, Daily - [address], 40 mg, oral, Daily Continuous Infusions: PRN Meds:.benzocaine-menthoL ??? dextrose OR dextrose ??? glucagon ??? hydrOXYzine ??? ondansetron ODT OR ondansetron ??? sodium chloride ??? traZODone CHRISTEN Above review of system reviewed on 04/25/2021 Vitals: Vitals: 04/25/21 0353 04/25/21 0700 04/25/21 0800 04/25/21 0900 BP: 106/64 BP Location: Pulse: 65 68 63 89 Resp: 28 28 29 24 Temp: 36.9 ??C (98.5 ??F) TempSrc: Axillary SpO2: 97% 97% 99% 97% Weight: Height: Temp (24hrs), Av.8 ??C (98.3 ??F), Min:36.6 ??C (97.9 ??F), Max:37.1 ??C (98.8 ??F) FiO2 (%): [95 %-100 %] 100 % Intake/Output Summary (Last 24 hours) at 04/25/2021 1026 Last data filed at 04/25/2021 0525 Gross per 24 hour Intake 800 ml Output 2450 ml Net -1650 ml Physical Exam Vitals and nursing note reviewed. Constitutional: Appearance: She is obese. HENT: Head: Normocephalic and atraumatic. Nose: Nose normal. Eyes: General: No scleral icterus. Cardiovascular: Rate and Rhythm: Normal rate and regular rhythm. Heart sounds: No murmur heard. Pulmonary: Effort: No respiratory distress. Breath sounds: No wheezing or rales. Abdominal: General: Abdomen is flat. Palpations: Abdomen is soft. Musculoskeletal: General: Normal range of motion. Right lower leg: No edema. Left lower leg: No edema. Skin: General: Skin is warm and dry. Neurological: Mental Status: She is alert. Psychiatric: Behavior: Behavior normal. Lab/Radiology/Diagnostic Review: Labs: Recent Labs Lab Units 04/25/21 0302 04/24/21 0739 04/23/21 0648 WBC K/cumm 12.8* 15.0* 12.3* HEMOGLOBIN g/dL 10.3* 11.8* 10.6* HEMATOCRIT % 33.2* 38.6 34.2* PLATELETS K/cumm 251 278 227 NEUTROS PCT % 83.2 82.7 85.0 LYMPHS PCT % 8.8 9.1 8.2 MONOS PCT % 6.0 6.0 5.1 EOS PCT % 1.3 1.5 1.1 Recent Labs Lab Units 04/25/21 0803 04/25/21 0344 04/24/21 2219 04/24/21 0814 04/24/21 0739 04/23/21 0922 04/23/21 0648 04/20/21 0934 04/20/21 0534 04/19/21 0829 04/19/21 0657 SODIUM mmol/L -- 140 -- -- 140 -- 138 < > 142 < > 143 POTASSIUM PLASMA mmol/L -- 4.3 -- -- 4.3 -- 4.1 < > 3.6 < > 3.8 CHLORIDE mmol/L -- 101 -- -- 100 -- 100 < > 106 < > 103 CO2 mmol/L -- 29 -- -- 29 -- 29 < > 29 < > 29 ANIONGAP mmol/L -- 10 -- -- 11 -- 9 < > 7 < > 11 GLUCOSE mg/dL -- 105 -- -- 128 < > 138 < > 128 < > 138 POC GLUCOSE MONITOR mg/dL 107 -- 225* < > -- < > -- < > -- < > -- BUN SERUM mg/dL -- 14 -- -- 16 -- 15 < > 16 < > 15 CREATININE mg/dL -- 0.49* -- -- 0.62 -- 0.47* < > 0.46* < > 0.59* CALCIUM mg/dL -- 8.5 -- -- 8.7 -- 8.5 < > 7.9* < > 8.3* ALBUMIN g/dL -- -- -- -- -- -- -- -- 2.7* -- 3.1* ALK PHOS Units/L -- -- -- -- -- -- -- -- 61 -- 70 ALT Units/L -- -- -- -- -- -- -- -- 28 -- 32 AST Units/L -- -- -- -- -- -- -- -- 28 -- 37 BILIRUBIN TOTAL mg/dL -- -- -- -- -- -- -- -- 0.4 -- 0.5 < > = values in this interval not displayed. Recent Labs Lab Units 04/24/21 0739 D DIMER ng/mL FEU 5,236* CRP mg/L 69.6* Imaging: CXR 04/14 bilateral patchy ground-glass infiltrate left greater than right Other diagnostic tests: I have personally reviewed above laboratory findings, chest imaging, and diagnostic tests 04/25/2021 Assessment and Plan: COVID 19, dx 04/14, symptom onset approx 04/08/21 positive test on 04/08/2021 Acute respiratory failure Hypothyroidism BMI 44 ?? Recs: O2 as required, cpap as needed DVT prophylaxis Dexamethasone x 10 days remdesivir x5 days, completed baricitinib started 04/15 Monitor cbc and kidney fxn IS Chart reviewed * Flavio Snyder MD - 04/25/2021 6:22 AM CDT Hospitalist Progress Note Noris Bob MD Shaina Huynh is a 46 y.o. female with chief complaint of: Fatigue, and shortness of breath presented on the admission. Subjective: 04/24/2021: In bed upset that she is not getting better that she still needing quite a bit the oxygen. Explain to her that her COVID is severe she is on Airvo BiPAP. Her who went home did notneed any of this and is going to take weeks for her to see any improvement. 04/25/2021: In bed on BiPAP 95% fio2 and sats ok, benefits more from the BiPAP Objective: Vitals: Temp Min: 36.6 ??C (97.9 ??F) Max: 37.1 ??C (98.8 ??F) Pulse Min: 64 Max: 101 BP Min: 106/64 Max: 117/63 Resp Min: 21 Max: 38 SpO2 Min: 82 % Max: 99 % Most Recent : Vitals: 04/25/21 0000 04/25/21 0100 04/25/21 0155 04/25/21 0353 BP: 106/50 106/64 BP Location: Pulse: 70 64 65 Resp: 29 (!) 32 28 Temp: 36.8 ??C (98.2 ??F) 36.9 ??C (98.5 ??F) TempSrc: Oral Axillary SpO2: 99% 96% 97% Weight: 125.8 kg (277 lb 4.8 oz) Height: Intake/Output Summary (Last 24 hours) at 04/25/2021 0622 Last data filed at 04/25/2021 0525 Gross per 24 hour Intake 800 ml Output 2450 ml Net -1650 ml Physical exam: Gen: In bed awake alert no acute distress HEENT: No conjunctival pallor Neck: Supple, no palpable LN, no JVD Resp: Poor effort, poor air entry bilateral. CV: S1, S2, RRR GI: Obese, +BS, Soft, no abdominal tenderness. MSK: No lower extremity edema Skin: No rashes Neuro: Ao3, no gross defects Psych: Appropriate mood and affect upset at her diagnosis poor rate of improvement Lab/Radiology/Diagnostic Review: Reviewed. Recent Results (from the past 24 hour(s)) CBC with auto differential Collection Time: 04/24/21 7:39 AM Result Value Ref Range WBC 15.0 (H) 3.8 - 9.9 K/cumm Hgb 11.8 (L) 11.9 - 15.5 g/dL Hct 38.6 35.6 - 45.5 % Plt 278 150 - 400 K/cumm MPV 12.1 9.1 - 12.3 fL RBC 4.20 3.90 - 5.20 M/cumm MCV 91.9 81.3 - 96.4 fL MCH 28.1 27.1 - 33.3 pg MCHC 30.6 (L) 32.3 - 35.7 g/dL RDW CV 15.2 (H) 11.1 - 14.9 % RDW SD 51.3 (H) 35.7 - 48.1 fL NRBC abs 0.00 0.00 - 0.01 K/cumm Basic metabolic panel Collection Time: 04/24/21 7:39 AM Result Value Ref Range Sodium 140 135 - 145 mmol/L Potassium, pl 4.3 3.3 - 4.9 mmol/L Chloride 100 97 - 110 mmol/L CO2 29 22 - 32 mmol/L Anion gap 11 2 - 15 mmol/L BUN 16 8 - 25 mg/dL Creatinine 0.62 0.60 - 1.10 mg/dL Glucose 128 70 - 199 mg/dL Calcium 8.7 8.5 - 10.3 mg/dL D-dimer, quantitative Collection Time: 04/24/21 7:39 AM Result Value Ref Range D-Dimer 5,236 (H) <=499 ng/mL FEU CRP (acute phase) Collection Time: 04/24/21 7:39 AM Result Value Ref Range CRP 69.6 (H) <=10.0 mg/L Differential, auto Collection Time: 04/24/21 7:39 AM Result Value Ref Range Neutrophil abs 12.4 (H) 1.7 - 6.5 K/cumm Imm gran abs 0.1 0.0 - 0.1 K/cumm Lymphocyte abs 1.4 0.8 - 3.3 K/cumm Monocyte abs 0.9 (H) 0.2 - 0.8 K/cumm Eosinophil abs 0.2 0.0 - 0.5 K/cumm Basophil abs 0.0 0.0 - 0.1 K/cumm Neutrophil pct 82.7 % Imm gran pct 0.6 % Lymphocyte pct 9.1 % Monocyte pct 6.0 % Eosinophil pct 1.5 % Basophil pct 0.1 % eGFR Collection Time: 04/24/21 7:39 AM Result Value Ref Range eGFR 108 mL/min/1.73 m2 POCT glucose Collection Time: 04/24/21 8:14 AM Result Value Ref Range Glucose, POC 143 70 - 199 mg/dL POCT glucose Collection Time: 04/24/21 1:12 PM Result Value Ref Range Glucose, POC 270 (H) 70 - 199 mg/dL POCT glucose Collection Time: 04/24/21 5:56 PM Result Value Ref Range Glucose, POC 236 (H) 70 - 199 mg/dL POCT glucose Collection Time: 04/24/21 10:19 PM Result Value Ref Range Glucose, POC 225 (H) 70 - 199 mg/dL CBC with auto differential Collection Time: 04/25/21 3:02 AM Result Value Ref Range WBC 12.8 (H) 3.8 - 9.9 K/cumm Hgb 10.3 (L) 11.9 - 15.5 g/dL Hct 33.2 (L) 35.6 - 45.5 % Plt 251 150 - 400 K/cumm MPV 12.3 9.1 - 12.3 fL RBC 3.68 (L) 3.90 - 5.20 M/cumm MCV 90.2 81.3 - 96.4 fL MCH 28.0 27.1 - 33.3 pg MCHC 31.0 (L) 32.3 - 35.7 g/dL RDW CV 15.0 (H) 11.1 - 14.9 % RDW SD 49.6 (H) 35.7 - 48.1 fL NRBC abs 0.00 0.00 - 0.01 K/cumm Differential, auto Collection Time: 04/25/21 3:02 AM Result Value Ref Range Neutrophil abs 10.6 (H) 1.7 - 6.5 K/cumm Imm gran abs 0.1 0.0 - 0.1 K/cumm Lymphocyte abs 1.1 0.8 - 3.3 K/cumm Monocyte abs 0.8 0.2 - 0.8 K/cumm Eosinophil abs 0.2 0.0 - 0.5 K/cumm Basophil abs 0.0 0.0 - 0.1 K/cumm Neutrophil pct 83.2 % Imm gran pct 0.5 % Lymphocyte pct 8.8 % Monocyte pct 6.0 % Eosinophil pct 1.3 % Basophil pct 0.2 % Basic metabolic panel Collection Time: 04/25/21 3:44 AM Result Value Ref Range Sodium 140 135 - 145 mmol/L Potassium, pl 4.3 3.3 - 4.9 mmol/L Chloride 101 97 - 110 mmol/L CO2 29 22 - 32 mmol/L Anion gap 10 2 - 15 mmol/L BUN 14 8 - 25 mg/dL Creatinine 0.49 (L) 0.60 - 1.10 mg/dL Glucose 105 70 - 199 mg/dL Calcium 8.5 8.5 - 10.3 mg/dL eGFR Collection Time: 04/25/21 3:44 AM Result Value Ref Range eGFR 117 mL/min/1.73 m2 Assessment: / Plan: Acute hypoxic respiratory failure: Presented on the admission secondary to COVID-19 pneumonia. Patient required to be on high dose of oxygen nasal cannula, needed to be transferred to [facility]. Patient has been on Opti Flow/BiPAP overnight. Trying to taper down if able to tolerate. Continue with Decadron 6 mg as severe disease will continue past 10 days as indicated Remdesivir completed and Baricitinib 4 mg oral daily was started on April 15, 2021 for 14 days treatment. Appreciate Pulmonary input and management. Possible upper respiratory infection: Treated with penicillin V potassium 500 mg 1 tablet twice a day. Completed treatment course. Diabetes mellitus type 2: Patient reported that she did have gestational diabetes but never continued with her diabetes as she reported. Hemoglobin A1c done on April 17, 2021 was 7.1. Informed the patient regarding her diabetes and the need for treatment specially now she is gettingIV steroid/Decadron causing her hyperglycemia. Lantus/lispro with meals/insulin sliding scale. Hypothyroidism: Continue with levothyroxine 75 mcg 1 tablet daily. Preventions: Lovenox and prophylaxis with Protonix Medical decision making complexity high Anticipated discharge: Unable to tell due to severe disease needing Airvo and BiPAP Flavio Snyder MD Hospitalist 04/25/2021 6:22 AM * Adelaida Briones RD - 04/24/2021 3:23 PM CDT Nutrition Assessment Reason for Assessment: Follow Up Encounter Date: 04/24/21 3:39 PM Nutrition Assessment and Plan: Patient is a 46 y.o. female. Admit Dx: PNEUMONIA DUE TO COVID-19. Admitted on 04/14/2021, current LOS is 10 days. Impression: Pt on isolation for COVID-19, RD placed phone call to Pts room but there was no answer. -Limited recent PO intakes recorded: 75-100%. RN reports Pt drank 75% Ensure with breakfast today- will continue. Follow for flavor preferences -Hemoglobin A1C= 7.1, with recently elevated Glucose Labs- will add Consistent CHO Diet -GI WDL. Last BM 04/23 -Skin: evolving buttocks rash -Current Wt was stated - ordering Wt check Most Recent Wt and method Weight: 131.5 kg (290 lb) Weight Method: Stated Wt Readings from Last 6 Encounters: 04/14/21 131.5 kg (290 lb) Current diet order: Adult Diet Regular Pt intake is adequate. PO intakes: 75-100% x 3 Ensure High Protein any flavor tid- 25% x 1, 100% x 1 NUTRITION DIAGNOSIS #1: Nutrition Diagnosis 1: Altered nutrition-related laboratory values Related to: Physiologic issue (endocrine dysfunction) Evidenced by: Lab abnormality (Hemoglobin A1C= 7.1. Recently elevated Glucose Labs) NUTRITION DIAGNOSIS #2 Nutrition Diagnosis 2: Increased nutrient needs (protein)Related to: Physiologic issueEvidenced by:Other (comment) (COVID-19) Interventions: Modify diet, Regular weights (Adding Consistent CHO diet. Ordering Wt check) Monitoring and Evaluation: Appetite, Blood glucoses, Discharge plans, Labs, Plan of care, PO intake, Supplement tolerance, Weight changes Goals: Adequate nutrition to meet estimated needs by next assessment Estimated needs: ?? Total Kcal/kg Estimated Needs : based on Kcal/k. Type of Weight Used for Estimated Kcals: Current ?? Total Protein Estimated Needs (gm): 127 Protein Needs Based on g/k.0 Type of Weight Used forEstimated Protein : [place]. ?? Total Fluid Estimated Needs: 1972.15 Fluid Needs Based on : 1 ml/kcal. Objective Anthropometrics Weight: 131.5 kg (290 lb) Admission Weight : 131.5 kg Weight Change: -7.25 kg (-15.99 lbs) IBW/kg (Calculated) : 63.5 kg Height: 172.7 cm (5' 7.99 ) Weight in (lb) to have BMI = 25: 164 BMI (Calculated): 44.1 BMI Classification: BMI > or equal to 40.0 Class III 3 Day I/O Summary 04/22 1900 - 04/24 659 In: 500 [P.O.:500] Out: 2900 [Urine:2900] Temp: 36.8 ??C (98.2 ??F) Past Medical History: Diagnosis Date ??? Thyroid disease Medications and Lab Review: Scheduled Meds: baricitinib, 4 mg, oral, Daily cetirizine, 10 mg, oral, Daily dexAMETHasone, 6 mg, intravenous, Q24H DEMETRIA enoxaparin, 40 mg, subcutaneous, Q12H DEMETRIA insulin glargine, 10 Units, subcutaneous, Nightly insulin lispro, 0-4 Units, subcutaneous, Nightly insulin lispro, 0-5 Units, subcutaneous, TID with meals insulin lispro, 4 Units, subcutaneous, TID with meals levothyroxine, 75 mcg, oral, Daily - [address], 40 mg, oral, Daily Continuous Infusions: Sodium Date Value Ref Range Status 04/24/2021 140 135 - 145 mmol/L Final Potassium, pl Date Value Ref Range Status 04/24/2021 4.3 3.3 - 4.9 mmol/L Final BUN Date Value Ref Range Status 04/24/2021 16 8 - 25 mg/dL Final Creatinine Date Value Ref Range Status 04/24/2021 0.62 0.60 - 1.10 mg/dL Final Calcium Date Value Ref Range Status 04/24/2021 8.7 8.5 - 10.3 mg/dL Final Lab Results Component Value Date HGBA1C 7.1 (H) 04/17/2021 Lab Results Component Value Date GLUCOSE 270 (H) 04/24/2021 GLUCOSE 143 04/24/2021 GLUCOSE 128 04/24/2021 GLUCOSE 306 (H) 04/23/2021 GLUCOSE 288 (H) 04/23/2021 GLUCOSE 206 (H) 04/23/2021 GLUCOSE 138 04/23/2021 GLUCOSE 150 04/22/2021 Nursing Assessment: Last BM Date: 04/23/21 Bowel Sounds (All Quadrants): Active Carlos Scale Score: 18 Skin Integrity: Blanchable redness Diet Instructions Dietitian recommends consistent carbohydrate diet on discharge. -Read the nutrition facts label on packages for serving size and eat 60-75 grams of carbohydrates per meal. Eat 3 meals per day, try to eat at regular times. Limit concentrated sweets/desserts, cookies, cake, candy, ice cream, and sweetened beverages (regular soda, lemonade, gatorade, and sweet tea). Monitor blood sugars and take medications as directed by your doctor. Additional resources available from the [place] [employer] can be found at www.diabetes.org/nutrition -Eat a variety of healthy foods from all the food groups. Eat fruits, vegetables, whole grains, andfat-free or low-fat dairy foods. Whole grains include whole-wheat breads, cereals, pasta, and brownrice. Choose lean meats, poultry (chicken and turkey), fish, beans, eggs, and nuts. A healthy meal plan is low in unhealthy fats, salt, and added sugar. Healthy fats include olive oil and canola oil.Recommend to avoid sugary drinks like lemonade, regular soda, gatorade, and sweet tea. Additional resources are available online from the Academy of [employer] and Dietetics at www.eatright.org Drink Ensure High Protein or Glucerna 1-2 times daily to promote adequate Calorie/Protein intakes. Please call the dietitian's office at [phone] if you have questions about nutrition. If you would like to see our outpatient dietitian please have your physician fax a referral to [phone], and you may call [phone] to make an appointment. Nutrition Follow-Up : 04/29/[address],[place] * Flavio Snyder MD - 04/24/2021 2:28 PM CDT Hospitalist Progress Note Noris Bob MD Shaina Huynh is a 46 y.o. female with chief complaint of: Fatigue, and shortness of breath presented on the admission. Subjective: 04/24/2021: In bed upset that she is not getting better that she still needing quite a bit the oxygen. Explain to her that her COVID is severe she is on Airvo BiPAP. Her who went home did notneed any of this and is going to take weeks for her to see any improvement. Objective: Vitals: Temp Min: 36.8 ??C (98.2 ??F) Max: 36.9 ??C (98.5 ??F) Pulse Min: 59 Max: 101 BP Min: 111/80 Max: 140/96 Resp Min: 20 Max: 38 SpO2 Min: 82 % Max: 99 % Most Recent : Vitals: 04/24/21 1000 04/24/21 1100 04/24/21 1200 04/24/21 1235 BP: BP Location: Patient Position: Pulse: 89 101 101 86 Resp: 22 (!) 34 (!) 38 28 Temp: 36.8 ??C (98.2 ??F) TempSrc: Temporal SpO2: 96% (!) 82% 98% 93% Weight: Height: Intake/Output Summary (Last 24 hours) at 04/24/2021 1428 Last data filed at 04/24/2021 0600 Gross per 24 hour Intake 500 ml Output 1100 ml Net -600 ml Physical exam: Gen: In bed awake alert no acute distress HEENT: No conjunctival pallor Neck: Supple, no palpable LN, no JVD Resp: Poor effort, poor air entry bilateral. CV: S1, S2, RRR GI: Obese, +BS, Soft, no abdominal tenderness. MSK: No lower extremity edema Skin: No rashes Neuro: Ao3, no gross defects Psych: Appropriate mood and affect upset at her diagnosis poor rate of improvement Lab/Radiology/Diagnostic Review: Reviewed. Recent Results (from the past 24 hour(s)) POCT glucose Collection Time: 04/23/21 5:53 PM Result Value Ref Range Glucose, POC 288 (H) 70 - 199 mg/dL POCT glucose Collection Time: 04/23/21 9:13 PM Result Value Ref Range Glucose, POC 306 (H) 70 - 199 mg/dL CBC with auto differential Collection Time: 04/24/21 7:39 AM Result Value Ref Range WBC 15.0 (H) 3.8 - 9.9 K/cumm Hgb 11.8 (L) 11.9 - 15.5 g/dL Hct 38.6 35.6 - 45.5 % Plt 278 150 - 400 K/cumm MPV 12.1 9.1 - 12.3 fL RBC 4.20 3.90 - 5.20 M/cumm MCV 91.9 81.3 - 96.4 fL MCH 28.1 27.1 - 33.3 pg MCHC 30.6 (L) 32.3 - 35.7 g/dL RDW CV 15.2 (H) 11.1 - 14.9 % RDW SD 51.3 (H) 35.7 - 48.1 fL NRBC abs 0.00 0.00 - 0.01 K/cumm Basic metabolic panel Collection Time: 04/24/21 7:39 AM Result Value Ref Range Sodium 140 135 - 145 mmol/L Potassium, pl 4.3 3.3 - 4.9 mmol/L Chloride 100 97 - 110 mmol/L CO2 29 22 - 32 mmol/L Anion gap 11 2 - 15 mmol/L BUN 16 8 - 25 mg/dL Creatinine 0.62 0.60 - 1.10 mg/dL Glucose 128 70 - 199 mg/dL Calcium 8.7 8.5 - 10.3 mg/dL D-dimer, quantitative Collection Time: 04/24/21 7:39 AM Result Value Ref Range D-Dimer 5,236 (H) <=499 ng/mL FEU CRP (acute phase) Collection Time: 04/24/21 7:39 AM Result Value Ref Range CRP 69.6 (H) <=10.0 mg/L Differential, auto Collection Time: 04/24/21 7:39 AM Result Value Ref Range Neutrophil abs 12.4 (H) 1.7 - 6.5 K/cumm Imm gran abs 0.1 0.0 - 0.1 K/cumm Lymphocyte abs 1.4 0.8 - 3.3 K/cumm Monocyte abs 0.9 (H) 0.2 - 0.8 K/cumm Eosinophil abs 0.2 0.0 - 0.5 K/cumm Basophil abs 0.0 0.0 - 0.1 K/cumm Neutrophil pct 82.7 % Imm gran pct 0.6 % Lymphocyte pct 9.1 % Monocyte pct 6.0 % Eosinophil pct 1.5 % Basophil pct 0.1 % eGFR Collection Time: 04/24/21 7:39 AM Result Value Ref Range eGFR 108 mL/min/1.73 m2 POCT glucose Collection Time: 04/24/21 8:14 AM Result Value Ref Range Glucose, POC 143 70 - 199 mg/dL POCT glucose Collection Time: 04/24/21 1:12 PM Result Value Ref Range Glucose, POC 270 (H) 70 - 199 mg/dL Assessment: / Plan: Acute hypoxic respiratory failure: Presented on the admission secondary to COVID-19 pneumonia. Patient required to be on high dose of oxygen nasal cannula, needed to be transferred to [facility]. Patient has been on Opti Flow/BiPAP overnight. Trying to taper down if able to tolerate. Continue with Decadron 6 mg as severe disease will continue past 10 days as indicated Remdesivir completed and Baricitinib 4 mg oral daily was started on April 15, 2021 for 14 days treatment. Appreciate Pulmonary input and management. Possible upper respiratory infection: Treated with penicillin V potassium 500 mg 1 tablet twice a day. Completed treatment course. Diabetes mellitus type 2: Patient reported that she did have gestational diabetes but never continued with her diabetes as she reported. Hemoglobin A1c done on April 17, 2021 was 7.1. Informed the patient regarding her diabetes and the need for treatment specially now she is gettingIV steroid/Decadron causing her hyperglycemia. Lantus/lispro with meals/insulin sliding scale. Hypothyroidism: Continue with levothyroxine 75 mcg 1 tablet daily. Preventions: Lovenox and prophylaxis with Protonix Medical decision making complexity high Anticipated discharge: Unable to tell due to severe disease needing Airvo and BiPAP Flavio Snyder MD Hospitalist 04/24/2021 2:28 PM * Johnny Salgado MD - 04/24/2021 8:18 AM CDT Pulmonary Daily Progress Chief complaint/reason for consult: Covid 19. Interval History: On optiflow 60L/100% 04/23 Currently on full face cpap 15 cmH2O with 95% fio2 Saturation of 92% Some congestion, no sputum, no GARCÍA, no myalgia, no nvd,some cramping Afebrile Presenting History: 46 yo woman w hypothyroidism and BMI 44 admitted 04/14 after presenting to the ED with shortness of breath. Sx present about a week. Started w cough. No chest pain. COVID positive. also hospitalized w COVID. No pre-existing lung disease. CT chest with diffuse patchy gg infiltrates consistent w COVID. Steroids began 04/14 Remdesivir started 04/14 Strep screen + on 04/08/21 Covid 19 + pcr 04/08/21 Allergies: No Known Allergies Medications: Scheduled Meds:baricitinib, 4 mg, oral, Daily cetirizine, 10 mg, oral, Daily dexAMETHasone, 6 mg, intravenous, Q24H DEMETRIA enoxaparin, 40 mg, subcutaneous, Q12H DEMETRIA insulin glargine, 10 Units, subcutaneous, Nightly insulin lispro, 0-4 Units, subcutaneous, Nightly insulin lispro, 0-5 Units, subcutaneous, TID with meals insulin lispro, 4 Units, subcutaneous, TID with meals levothyroxine, 75 mcg, oral, Daily - [address], 40 mg, oral, Daily Continuous Infusions: PRN Meds:.benzocaine-menthoL ??? dextrose OR dextrose ??? glucagon ??? hydrOXYzine ??? ondansetron ODT OR ondansetron ??? sodium chloride ??? traZODone CHRISTEN Above review of system reviewed on 04/24/2021 Vitals: Vitals: 04/24/21 0000 04/24/21 0225 04/24/21 0400 04/24/21 0455 BP: 128/67 112/65 114/67 BP Location: Patient Position: Pulse: 65 59 61 69 Resp: 29 30 29 26 Temp: 36.8 ??C (98.3 ??F) TempSrc: Tympanic SpO2: 95% 96% 97% 98% Weight: Height: Temp (24hrs), Av.8 ??C (98.3 ??F), Min:36.8 ??C (98.3 ??F), Max:36.9 ??C (98.4 ??F) FiO2 (%): [95 %-100 %] 95 % Intake/Output Summary (Last 24 hours) at 04/24/2021 0818 Last data filed at 04/24/2021 0600 Gross per 24 hour Intake 500 ml Output 2900 ml Net -2400 ml Physical Exam Vitals and nursing note reviewed. Constitutional: Appearance: She is obese. HENT: Head: Normocephalic and atraumatic. Nose: Nose normal. Eyes: General: No scleral icterus. Cardiovascular: Rate and Rhythm: Normal rate and regular rhythm. Heart sounds: No murmur heard. Pulmonary: Effort: No respiratory distress. Breath sounds: No wheezing, rhonchi or rales. Abdominal: General: Abdomen is flat. Palpations: Abdomen is soft. Musculoskeletal: General: Normal range of motion. Right lower leg: No edema. Left lower leg: No edema. Skin: General: Skin is warm and dry. Neurological: Mental Status: She is alert. Psychiatric: Behavior: Behavior normal. Lab/Radiology/Diagnostic Review: Labs: Recent Labs Lab Units 04/24/21 0739 04/23/21 0648 04/22/21 0631 WBC K/cumm 15.0* 12.3* 11.7* HEMOGLOBIN g/dL 11.8* 10.6* 10.6* HEMATOCRIT % 38.6 34.2* 33.7* PLATELETS K/cumm 278 227 229 NEUTROS PCT % 82.7 85.0 88.1 LYMPHS PCT % 9.1 8.2 5.3 MONOS PCT % 6.0 5.1 5.3 EOS PCT % 1.5 1.1 0.3 Recent Labs Lab Units 04/24/21 0814 04/23/21 2113 04/23/21 1753 04/23/21 0922 04/23/21 0648 04/22/21 0949 04/22/21 0631 04/20/21 0934 04/20/21 0534 04/19/21 0829 04/19/21 0657 04/18/21 1153 04/18/21 0739 SODIUM mmol/L -- -- -- -- 138 -- 140 -- 142 < > 143 < > 142 POTASSIUM PLASMA mmol/L -- -- -- -- 4.1 -- 4.4 -- 3.6 < > 3.8 < > 3.6 CHLORIDE mmol/L -- -- -- -- 100 -- 103 -- 106 < > 103 < > 103 CO2 mmol/L -- -- -- -- 29 -- 27 -- 29 < > 29 < > 28 ANIONGAP mmol/L -- -- -- -- 9 -- 10 -- 7 < > 11 < > 11 GLUCOSE mg/dL -- -- -- -- 138 < > 150 < > 128 < > 138 < > 139 POC GLUCOSE MONITOR mg/dL 143 306* 288* < > -- < > -- < > -- < > -- < > -- BUN SERUM mg/dL -- -- -- -- 15 -- 14 -- 16 < > 15 < > 14 CREATININE mg/dL -- -- -- -- 0.47* -- 0.43* -- 0.46* < > 0.59* < > 0.54* CALCIUM mg/dL -- -- -- -- 8.5 -- 8.7 -- 7.9* < > 8.3* < > 8.4* ALBUMIN g/dL -- -- -- -- -- -- -- -- 2.7* -- 3.1* -- 2.8* ALK PHOS Units/L -- -- -- -- -- -- -- -- 61 -- 70 -- 70 ALT Units/L -- -- -- -- -- -- -- -- 28 -- 32 -- 32 AST Units/L -- -- -- -- -- -- -- -- 28 -- 37 -- 34 BILIRUBIN TOTAL mg/dL -- -- -- -- -- -- -- -- 0.4 -- 0.5 -- 0.5 < > = values in this interval not displayed. Recent Labs Lab Units 04/24/21 0739 D DIMER ng/mL FEU 5236* Imaging: CXR 04/14 bilateral patchy ground-glass infiltrate left greater than right Other diagnostic tests: I have personally reviewed above laboratory findings, chest imaging, and diagnostic tests 04/24/2021 Assessment and Plan: COVID 19, dx 04/14, symptom onset approx 04/08/21 positive test on 04/08/2021 Acute respiratory failure Hypothyroidism BMI 44 ?? Recs: O2 as required, cpap as needed DVT prophylaxis Dexamethasone x 10 days remdesivir x5 days, completed baricitinib started 04/15 Monitor d dimer and renal/hepatic panels and CBC IS Chart reviewed * Javon Kauffman MD - 04/23/2021 7:18 AM CDT Pulmonary Daily Progress Chief complaint/reason for consult: Covid 19. Interval History: On optiflow this morning, on 60L/100%, unchanged Afebrile Breathing comf occ cough Presenting History: 46 yo woman w hypothyroidism and BMI 44 admitted 04/14 after presenting to the ED with shortness of breath. Sx present about a week. Started w cough. No chest pain. COVID positive. also hospitalized w COVID. No pre-existing lung disease. CT chest with diffuse patchy gg infiltrates consistent w COVID. Steroids began 04/14 Remdesivir started 04/14 Strep screen + on 04/08/21 Covid 19 + pcr 04/08/21 Allergies: No Known Allergies Medications: Scheduled Meds:baricitinib, 4 mg, oral, Daily cetirizine, 10 mg, oral, Daily dexAMETHasone, 6 mg, intravenous, Q24H DEMETRIA enoxaparin, 40 mg, subcutaneous, Q12H DEMETRIA insulin glargine, 10 Units, subcutaneous, Nightly insulin lispro, 0-4 Units, subcutaneous, Nightly insulin lispro, 0-5 Units, subcutaneous, TID with meals insulin lispro, 4 Units, subcutaneous, TID with meals levothyroxine, 75 mcg, oral, Daily - [address], 40 mg, oral, Daily Continuous Infusions: PRN Meds:.benzocaine-menthoL ??? dextrose OR dextrose ??? glucagon ??? hydrOXYzine ??? ondansetron ODT OR ondansetron ??? sodium chloride ??? traZODone ROS Above review of system reviewed on 04/23/2021 Vitals: Vitals: 04/23/21 0400 04/23/21 0500 04/23/21 0600 04/23/21 0700 BP: 123/64 114/69 113/67 101/63 Pulse: 63 61 73 70 Resp: (!) 33 24 22 (!) 34 Temp: TempSrc: SpO2: 95% 96% (!) 87% 93% Weight: Height: Temp (24hrs), Av.6 ??C (97.9 ??F), Min:36.3 ??C (97.3 ??F), Max:37 ??C (98.6 ??F) FiO2 (%): [80 %-100 %] 100 % No intake or output data in the 24 hours ending 04/23/21 0718 Physical Exam Vitals and nursing note reviewed. Constitutional: Appearance: She is obese. HENT: Head: Normocephalic and atraumatic. Nose: Nose normal. Eyes: General: No scleral icterus. Cardiovascular: Rate and Rhythm: Normal rate and regular rhythm. Heart sounds: No murmur heard. Pulmonary: Effort: No respiratory distress. Breath sounds: No wheezing, rhonchi or rales. Abdominal: General: Abdomen is flat. Palpations: Abdomen is soft. Musculoskeletal: General: Normal range of motion. Right lower leg: No edema. Left lower leg: No edema. Skin: General: Skin is warm and dry. Neurological: Mental Status: She is alert. Psychiatric: Behavior: Behavior normal. Lab/Radiology/Diagnostic Review: Labs: Recent Labs Lab Units 04/22/21 0631 04/20/21 0534 04/19/21 0657 WBC K/cumm 11.7* 9.7 10.7* HEMOGLOBIN g/dL 10.6* 10.2* 11.3* HEMATOCRIT % 33.7* 32.7* 36.7 PLATELETS K/cumm 229 217 229 NEUTROS PCT % 88.1 84.9 84.2 LYMPHS PCT % 5.3 8.2 7.9 MONOS PCT % 5.3 4.9 5.6 EOS PCT % 0.3 1.4 1.5 Recent Labs Lab Units 04/22/21 2114 04/22/21 1857 04/22/21 1347 04/22/21 0949 04/22/21 0631 04/20/21 0934 04/20/21 0534 04/19/21 0829 04/19/21 0657 04/18/21 1153 04/18/21 0739 SODIUM mmol/L -- -- -- -- 140 -- 142 -- 143 < > 142 POTASSIUM PLASMA mmol/L -- -- -- -- 4.4 -- 3.6 -- 3.8 < > 3.6 CHLORIDE mmol/L -- -- -- -- 103 -- 106 -- 103 < > 103 CO2 mmol/L -- -- -- -- 27 -- 29 -- 29 < > 28 ANIONGAP mmol/L -- -- -- -- 10 -- 7 -- 11 < > 11 GLUCOSE mg/dL -- -- -- -- 150 < > 128 < > 138 < > 139 POC GLUCOSE MONITOR mg/dL 253* 260* 242* < > -- < > -- < > -- < > -- BUN SERUM mg/dL -- -- -- -- 14 -- 16 -- 15 < > 14 CREATININE mg/dL -- -- -- -- 0.43* -- 0.46* -- 0.59* < > 0.54* CALCIUM mg/dL -- -- -- -- 8.7 -- 7.9* -- 8.3* < > 8.4* ALBUMIN g/dL -- -- -- -- -- -- 2.7* -- 3.1* -- 2.8* ALK PHOS Units/L -- -- -- -- -- -- 61 -- 70 -- 70 ALT Units/L -- -- -- -- -- -- 28 -- 32 -- 32 AST Units/L -- -- -- -- -- -- 28 -- 37 -- 34 BILIRUBIN TOTAL mg/dL -- -- -- -- -- -- 0.4 -- 0.5 -- 0.5 < > = values in this interval not displayed. Recent Labs Lab Units 04/16/21 0835 D DIMER ng/mL FEU 879* CRP mg/L 77.6* Imaging: CXR 04/14 bilateral patchy ground-glass infiltrate left greater than right Other diagnostic tests: I have personally reviewed above laboratory findings, chest imaging, and diagnostic tests 04/23/2021 Assessment and Plan: COVID 19, dx 04/14, symptom onset approx 04/08/21 positive test on 04/08/2021 Acute respiratory failure Hypothyroidism BMI 44 ?? Recs: O2 as required, cpap as needed DVT prophylaxis Dexamethasone x 10 days remdesivir x5 days, completed baricitinib started 04/15 Monitor d dimer and renal/hepatic panels and CBC IS Chart reviewed * Narayan Joy MD - 04/23/2021 6:53 AM CDT Hospitalist Progress Note Noris Bob MD Shaina Huynh is a 46 y.o. female with chief complaint of: Fatigue, and shortness of breath presented on the admission. Overnight Events: Patient was on CPAP overnight in the [facility]. On OptiFlow during the day 60 L/100%, saturating in the 90s No fever overnight. Subjective: Patient was feeling well earlier today, needed to have exchanging tube of her OptiFlow earlier this morning. Patient trying to use her incentive spirometry. Objective: Vitals: Temp Min: 36.5 ??C (97.7 ??F) Max: 36.5 ??C (97.7 ??F) Pulse Min: 60 Max: 94 BP Min: 101/63 Max: 169/128 Resp Min: 15 Max: 37 SpO2 Min: 84 % Max: 96 % Most Recent : Vitals: 04/23/21 0500 04/23/21 0600 04/23/21 0700 04/23/21 0934 BP: 114/69 113/67 101/63 Pulse: 61 73 70 87 Resp: 24 22 (!) 34 Temp: TempSrc: SpO2: 96% (!) 87% 93% Weight: Height: No intake or output data in the 24 hours ending 04/23/21 1119 Physical exam: Gen: Patient is a 46-year-old female comfortable was on her CPAP earlier this morning in the [facility] HEENT: No conjunctival pallor Neck: Supple, no palpable LN, no JVD Resp: Poor effort, poor air entry bilateral. CV: S1, S2, RRR GI: Obese, +BS, Soft, no abdominal tenderness. MSK: No lower extremity edema Skin: No rashes Neuro: Ao3, no gross defects Psych: Appropriate mood and affect Lab/Radiology/Diagnostic Review: Reviewed. Recent Results (from the past 24 hour(s)) POCT glucose Collection Time: 04/22/21 1:47 PM Result Value Ref Range Glucose, POC 242 (H) 70 - 199 mg/dL POCT glucose Collection Time: 04/22/21 6:57 PM Result Value Ref Range Glucose, POC 260 (H) 70 - 199 mg/dL POCT glucose Collection Time: 04/22/21 9:14 PM Result Value Ref Range Glucose, POC 253 (H) 70 - 199 mg/dL CBC with auto differential Collection Time: 04/23/21 6:48 AM Result Value Ref Range WBC 12.3 (H) 3.8 - 9.9 K/cumm Hgb 10.6 (L) 11.9 - 15.5 g/dL Hct 34.2 (L) 35.6 - 45.5 % Plt 227 150 - 400 K/cumm MPV 12.6 (H) 9.1 - 12.3 fL RBC 3.87 (L) 3.90 - 5.20 M/cumm MCV 88.4 81.3 - 96.4 fL MCH 27.4 27.1 - 33.3 pg MCHC 31.0 (L) 32.3 - 35.7 g/dL RDW CV 14.9 11.1 - 14.9 % RDW SD 48.2 (H) 35.7 - 48.1 fL NRBC abs 0.00 0.00 - 0.01 K/cumm Basic metabolic panel Collection Time: 04/23/21 6:48 AM Result Value Ref Range Sodium 138 135 - 145 mmol/L Potassium, pl 4.1 3.3 - 4.9 mmol/L Chloride 100 97 - 110 mmol/L CO2 29 22 - 32 mmol/L Anion gap 9 2 - 15 mmol/L BUN 15 8 - 25 mg/dL Creatinine 0.47 (L) 0.60 - 1.10 mg/dL Glucose 138 70 - 199 mg/dL Calcium 8.5 8.5 - 10.3 mg/dL Differential, auto Collection Time: 04/23/21 6:48 AM Result Value Ref Range Neutrophil abs 10.4 (H) 1.7 - 6.5 K/cumm Imm gran abs 0.1 0.0 - 0.1 K/cumm Lymphocyte abs 1.0 0.8 - 3.3 K/cumm Monocyte abs 0.6 0.2 - 0.8 K/cumm Eosinophil abs 0.1 0.0 - 0.5 K/cumm Basophil abs 0.0 0.0 - 0.1 K/cumm Neutrophil pct 85.0 % Imm gran pct 0.5 % Lymphocyte pct 8.2 % Monocyte pct 5.1 % Eosinophil pct 1.1 % Basophil pct 0.1 % eGFR Collection Time: 04/23/21 6:48 AM Result Value Ref Range eGFR 118 mL/min/1.73 m2 POCT glucose Collection Time: 04/23/21 9:22 AM Result Value Ref Range Glucose, POC 113 70 - 199 mg/dL Assessment: Principal Problem: Pneumonia due to COVID-19 virus Active Problems: Hyperlipidemia Hypothyroidism Acute respiratory failure with hypoxia (CMS/HCC) (HCC) Elevated AST (SGOT) Dehydration Plan: Patient is a 46-year-old female with history of thyroid disease, and obesity. Patient presented to the emergency room on April 14, 2021 with worsening of shortness of breath, and fatigue. Patient was admitted through the emergency room on April 14, [address] Barriga, patient was seen H and P was done by our nurse practitioner Ms. Guzman on April 14, 2021, then patient was followed with Dr. Oates on April 15. I Dr. Joy started to follow patient on April 16, 2021. Patient followed with pulmonary consult. Acute hypoxic respiratory failure: Presented on the admission secondary to COVID-19 pneumonia. Patient required to be on high dose of oxygen nasal cannula, needed to be transferred to [facility]. Patient has been on Opti Flow/BiPAP overnight. Trying to taper down if able to tolerate. Continue with Decadron 6 mg IV daily to finish 10 days of treatment, Remdesivir daily to finish 5 days of treatment was completed , and Baricitinib 4 mg oral daily was started on April 15, 2021 for 14 days treatment. Followed with pulmonary consult. - CT chest PE CTA with contrast done on April 14, 2021 IMPRESSION: NO ACUTE OR CHRONIC PULMONARY EMBOLISM. EXTENSIVE BILATERAL INFILTRATES CONSISTENT WITH COVID 19 APPEARANCE. Stat report by [facility] Electronically signed by: Silviano Whitehead M.D. Possible upper respiratory infection: Continue with penicillin V potassium 500 mg 1 tablet twice a day. Completed treatment course. Diabetes mellitus type 2: Patient reported that she did have gestational diabetes but never continued with her diabetes as she reported. Hemoglobin A1c done on April 17, 2021 was 7.1. Informed the patient regarding her diabetes and the need for treatment specially now she is gettingIV steroid/Decadron causing her hyperglycemia. Started with regimen of insulin Lantus/lispro with meals/insulin sliding scale. Hypothyroidism: Continue with levothyroxine 75 mcg 1 tablet daily. Preventions: Continue with Lovenox 40 mg subcu twice a day for DVT prophylaxis. Keep patient on Protonix 40 mg 1 tab daily. Informed the patient in details regarding the findings we have regarding her care, patient is awareabout her problems. Patient followed with pulmonary consult. Reviewed blood workup from earlier this morning. Encouraged patient to use her incentive spirometry. Encourage patient to increase activity when able to sit specially with her OptiFlow it is hard to increase her activity. Reviewed blood workup earlier today. Continue with current med treatment and monitoring. Anticipated discharge: 5-6 Days. Narayan Joy MD Hospitalist 04/23/2021 11:19 AM * Javon Kauffman MD - 04/22/2021 9:55 AM CDT Pulmonary Daily Progress Chief complaint/reason for consult: Covid 19. Interval History: On optiflow this morning, on 60L/100% Afebrile Breathing feels fairly comf occ cough Presenting History: 46 yo woman w hypothyroidism and BMI 44 admitted 04/14 after presenting to the ED with shortness of breath. Sx present about a week. Started w cough. No chest pain. COVID positive. also hospitalized w COVID. No pre-existing lung disease. CT chest with diffuse patchy gg infiltrates consistent w COVID. Steroids began 04/14 Remdesivir started 04/14 Strep screen + on 04/08/21 Covid 19 + pcr 04/08/21 Allergies: No Known Allergies Medications: Scheduled Meds:baricitinib, 4 mg, oral, Daily cetirizine, 10 mg, oral, Daily dexAMETHasone, 6 mg, intravenous, Q24H DEMETRIA enoxaparin, 40 mg, subcutaneous, Q12H DEMETRIA insulin glargine, 10 Units, subcutaneous, Nightly insulin lispro, 0-4 Units, subcutaneous, Nightly insulin lispro, 0-5 Units, subcutaneous, TID with meals insulin lispro, 4 Units, subcutaneous, TID with meals levothyroxine, 75 mcg, oral, Daily - [address], 40 mg, oral, Daily Continuous Infusions: PRN Meds:.benzocaine-menthoL ??? dextrose OR dextrose ??? glucagon ??? hydrOXYzine ??? ondansetron ODT OR ondansetron ??? traZODone CHRISTEN Above review of system reviewed on 04/22/2021 Vitals: Vitals: 04/22/21 0400 04/22/21 0500 04/22/21 0600 04/22/21 0800 BP: 108/64 110/70 124/55 Pulse: 56 65 56 Resp: 27 27 (!) 31 Temp: 37 ??C (98.6 ??F) TempSrc: Axillary SpO2: 98% 98% 97% Weight: Height: Temp (24hrs), Av.7 ??C (98.1 ??F), Min:36.4 ??C (97.5 ??F), Max:37.1 ??C (98.8 ??F) FiO2 (%): [80 %-100 %] 80 % No intake or output data in the 24 hours ending 04/22/21 0956 Physical Exam Vitals and nursing note reviewed. Constitutional: Appearance: She is obese. HENT: Head: Normocephalic and atraumatic. Nose: Nose normal. Eyes: General: No scleral icterus. Cardiovascular: Rate and Rhythm: Normal rate and regular rhythm. Pulmonary: Effort: No respiratory distress. Breath sounds: No wheezing, rhonchi or rales. Abdominal: General: Abdomen is flat. Palpations: Abdomen is soft. Musculoskeletal: General: Normal range of motion. Right lower leg: No edema. Left lower leg: No edema. Skin: General: Skin is warm and dry. Neurological: Mental Status: She is alert. Psychiatric: Behavior: Behavior normal. Lab/Radiology/Diagnostic Review: Labs: Recent Labs Lab Units 04/22/21 0631 04/20/21 0534 04/19/21 0657 WBC K/cumm 11.7* 9.7 10.7* HEMOGLOBIN g/dL 10.6* 10.2* 11.3* HEMATOCRIT % 33.7* 32.7* 36.7 PLATELETS K/cumm 229 217 229 NEUTROS PCT % 88.1 84.9 84.2 LYMPHS PCT % 5.3 8.2 7.9 MONOS PCT % 5.3 4.9 5.6 EOS PCT % 0.3 1.4 1.5 Recent Labs Lab Units 04/22/21 0631 04/21/21 1653 04/21/21 1423 04/20/21 0934 04/20/21 0534 04/19/21 0829 04/19/21 0657 04/18/21 1153 04/18/21 0739 SODIUM mmol/L 140 -- -- -- 142 -- 143 < > 142 POTASSIUM PLASMA mmol/L 4.4 -- -- -- 3.6 -- 3.8 < > 3.6 CHLORIDE mmol/L 103 -- -- -- 106 -- 103 < > 103 CO2 mmol/L 27 -- -- -- 29 -- 29 < > 28 ANIONGAP mmol/L 10 -- -- -- 7 -- 11 < > 11 GLUCOSE mg/dL 150 -- -- -- 128 < > 138 < > 139 POC GLUCOSE MONITOR mg/dL -- 161 160 < > -- < > -- < > -- BUN SERUM mg/dL 14 -- -- -- 16 -- 15 < > 14 CREATININE mg/dL 0.43* -- -- -- 0.46* -- 0.59* < > 0.54* CALCIUM mg/dL 8.7 -- -- -- 7.9* -- 8.3* < > 8.4* ALBUMIN g/dL -- -- -- -- 2.7* -- 3.1* -- 2.8* ALK PHOS Units/L -- -- -- -- 61 -- 70 -- 70 ALT Units/L -- -- -- -- 28 -- 32 -- 32 AST Units/L -- -- -- -- 28 -- 37 -- 34 BILIRUBIN TOTAL mg/dL -- -- -- -- 0.4 -- 0.5 -- 0.5 < > = values in this interval not displayed. Recent Labs Lab Units 04/16/21 0835 04/15/21 1117 D DIMER ng/mL FEU 879* -- CRP mg/L 77.6* 75.4* Imaging: CXR 04/14 bilateral patchy ground-glass infiltrate left greater than right Other diagnostic tests: I have personally reviewed above laboratory findings, chest imaging, and diagnostic tests 04/22/2021 Assessment and Plan: COVID 19, dx 04/14, symptom onset approx 04/08/21 positive test on 04/08/2021 Acute respiratory failure Hypothyroidism BMI 44 ?? Recs: O2 as required, cpap as needed DVT prophylaxis Dexamethasone x 10 days remdesivir x5 days, completed baricitinib started 04/15 Monitor d dimer and renal/hepatic panels and CBC ?? * Narayan Joy MD - 04/22/2021 6:25 AM CDT Hospitalist Progress Note Noris Bob MD Shaina Huynh is a 46 y.o. female with chief complaint of: Fatigue, and shortness of breath presented on the admission. Overnight Events: Patient was on CPAP overnight in the [facility]. On OptiFlow during the day 60 L/100%, saturating in the 90s No fever overnight. Subjective: Patient was awake earlier this morning. Was on her CPAP still. Patient trying to use her incentive spirometry. Objective: Vitals: Temp Min: 36.4 ??C (97.5 ??F) Max: 37.1 ??C (98.8 ??F) Pulse Min: 55 Max: 84 BP Min: 95/55 Max: 135/68 Resp Min: 14 Max: 37 SpO2 Min: 82 % Max: 99 % Most Recent : Vitals: 04/22/21 0400 04/22/21 0500 04/22/21 0600 04/22/21 0800 BP: 108/64 110/70 124/55 Pulse: 56 65 56 Resp: 27 27 (!) 31 Temp: 37 ??C (98.6 ??F) TempSrc: Axillary SpO2: 98% 98% 97% Weight: Height: No intake or output data in the 24 hours ending 04/22/21 0956 Physical exam: Gen: Patient is a 46-year-old female comfortable was on her CPAP earlier this morning in the [facility] HEENT: No conjunctival pallor Neck: Supple, no palpable LN, no JVD Resp: Poor effort, poor air entry bilateral. CV: S1, S2, RRR GI: Obese, +BS, Soft, no abdominal tenderness. MSK: No lower extremity edema Skin: No rashes Neuro: Ao3, no gross defects Psych: Appropriate mood and affect Lab/Radiology/Diagnostic Review: Reviewed. Recent Results (from the past 24 hour(s)) POCT glucose Collection Time: 04/21/21 2:23 PM Result Value Ref Range Glucose, POC 160 70 - 199 mg/dL POCT glucose Collection Time: 04/21/21 4:53 PM Result Value Ref Range Glucose, POC 161 70 - 199 mg/dL CBC with auto differential Collection Time: 04/22/21 6:31 AM Result Value Ref Range WBC 11.7 (H) 3.8 - 9.9 K/cumm Hgb 10.6 (L) 11.9 - 15.5 g/dL Hct 33.7 (L) 35.6 - 45.5 % Plt 229 150 - 400 K/cumm MPV 12.4 (H) 9.1 - 12.3 fL RBC 3.76 (L) 3.90 - 5.20 M/cumm MCV 89.6 81.3 - 96.4 fL MCH 28.2 27.1 - 33.3 pg MCHC 31.5 (L) 32.3 - 35.7 g/dL RDW CV 15.1 (H) 11.1 - 14.9 % RDW SD 49.4 (H) 35.7 - 48.1 fL NRBC abs 0.00 0.00 - 0.01 K/cumm Basic metabolic panel Collection Time: 04/22/21 6:31 AM Result Value Ref Range Sodium 140 135 - 145 mmol/L Potassium, pl 4.4 3.3 - 4.9 mmol/L Chloride 103 97 - 110 mmol/L CO2 27 22 - 32 mmol/L Anion gap 10 2 - 15 mmol/L BUN 14 8 - 25 mg/dL Creatinine 0.43 (L) 0.60 - 1.10 mg/dL Glucose 150 70 - 199 mg/dL Calcium 8.7 8.5 - 10.3 mg/dL Differential, auto Collection Time: 04/22/21 6:31 AM Result Value Ref Range Neutrophil abs 10.3 (H) 1.7 - 6.5 K/cumm Imm gran abs 0.1 0.0 - 0.1 K/cumm Lymphocyte abs 0.6 (L) 0.8 - 3.3 K/cumm Monocyte abs 0.6 0.2 - 0.8 K/cumm Eosinophil abs 0.0 0.0 - 0.5 K/cumm Basophil abs 0.0 0.0 - 0.1 K/cumm Neutrophil pct 88.1 % Imm gran pct 0.8 % Lymphocyte pct 5.3 % Monocyte pct 5.3 % Eosinophil pct 0.3 % Basophil pct 0.2 % eGFR Collection Time: 04/22/21 6:31 AM Result Value Ref Range eGFR 122 mL/min/1.73 m2 Assessment: Principal Problem: Pneumonia due to COVID-19 virus Active Problems: Hyperlipidemia Hypothyroidism Acute respiratory failure with hypoxia (CMS/HCC) (HCC) Elevated AST (SGOT) Dehydration Plan: Patient is a 46-year-old female with history of thyroid disease, and obesity. Patient presented to the emergency room on April 14, 2021 with worsening of shortness of breath, and fatigue. Patient was admitted through the emergency room on April 14, [address] Barriga, patient was seen H and P was done by our nurse practitioner Ms. Guzman on April 14, 2021, then patient was followed with Dr. Oates on April 15. I Dr. Joy started to follow patient on April 16, 2021. Patient followed with pulmonary consult. Acute hypoxic respiratory failure: Presented on the admission secondary to COVID-19 pneumonia. Patient required to be on high dose of oxygen nasal cannula, needed to be transferred to [facility]. Patient has been on Opti Flow/BiPAP overnight. Trying to taper down if able to tolerate. Continue with Decadron 6 mg IV daily to finish 10 days of treatment, Remdesivir daily to finish 5 days of treatment was completed , and Baricitinib 4 mg oral daily was started on April 15, 2021 for 14 days treatment. Followed with pulmonary consult. - CT chest PE CTA with contrast done on April 14, 2021 IMPRESSION: NO ACUTE OR CHRONIC PULMONARY EMBOLISM. EXTENSIVE BILATERAL INFILTRATES CONSISTENT WITH COVID 19 APPEARANCE. Stat report by [facility] Electronically signed by: Silviano Whitehead M.D. Possible upper respiratory infection: Continue with penicillin V potassium 500 mg 1 tablet twice a day. Completed treatment course. Diabetes mellitus type 2: Patient reported that she did have gestational diabetes but never continued with her diabetes as she reported. Hemoglobin A1c done on April 17, 2021 was 7.1. Informed the patient regarding her diabetes and the need for treatment specially now she is gettingIV steroid/Decadron causing her hyperglycemia. Started with regimen of insulin Lantus/lispro with meals/insulin sliding scale. Hypothyroidism: Continue with levothyroxine 75 mcg 1 tablet daily. Preventions: Continue with Lovenox 40 mg subcu twice a day for DVT prophylaxis. Keep patient on Protonix 40 mg 1 tab daily. Informed the patient in details regarding the findings we have regarding her care, patient is awareabout her problems. Patient followed with pulmonary consult. Reviewed blood workup from earlier this morning. Encouraged patient to use her incentive spirometry. Encourage patient to increase activity when able to sit specially with her OptiFlow it is hard to increase her activity. Reviewed blood workup earlier today. Continue with current med treatment and monitoring. Anticipated discharge: 5-6 Days. Narayan Joy MD Hospitalist 04/22/2021 9:56 AM * Shaina Verdugo, RD - 04/21/2021 3:22 PM CDT Nutrition Assessment Reason for Assessment: Initial Nutrition Assessment and Length of Stay Encounter Date: 04/21/21 3:22 PM Nutrition Assessment and Plan: Patient is a 46 y.o. female. Admit Dx: PNEUMONIA DUE TO COVID-19. Admitted on 04/14/2021, current LOS is 7 days. Pt admit with SOB and fatigue. Requiring CPAP at night and on optiflow during the day.On IV abx. Pt has increased nutrition needs due to COVID. Starting supplements and will follow tolerance. GI: BM 04/16. Rounded abd. No c/o N&V. Skin: intact Lab values: reviewed, HgbA1c 7.1 (04/17/21). POC Glu >200. No prior Hx of DM noted in chart, hadgestational DM per MD notes. RD attaching handouts and outpt nutrition counseling information to DCinstructions. Do not recommend restricting diet at this time due to inadequate intakes at meals. Wt Readings from Last 10 Encounters: 04/14/21 131.5 kg (290 lb) 02/14/21 293 lb (office visit at [facility] organization). Current diet order: Adult Diet Regular Pt intake is inadequate. PO intakes: 40% average Nutrition Diagnosis 1: Inadequate oral intake Related to: Loss of appetite, Acute illness/injury Evidenced by: PO under 50% ?? Interventions: Medical food supplement (Ordering ensure HP tid) ?? Monitoring and Evaluation: Plan of care, PO intake, Weight changes, Supplement tolerance, GI output, Labs, Discharge plans ?? Goals: Adequate nutrition to meet estimated needs by next assessment, Oral intake to meet 75% estimated nutritional needs by next assessment, Tolerance of medical food supplement by next assessment Estimated needs: ?? Total Kcal/kg Estimated Needs : 2367.77 based on Kcal/k. Type of Weight Used for Estimated Kcals: Current ?? Total Protein Estimated Needs (gm): 118.39 Protein Needs Based on g/k.9 Type of Weight Used for Estimated Protein : Current. ?? Total Fluid Estimated Needs: 2367.77 Fluid Needs Based on : 1 ml/kcal. . Objective Anthropometrics Weight: 131.5 kg (290 lb) Admission Weight : 131.5 kg Weight Change: -7.25 kg (-15.99 lbs) IBW/kg (Calculated) : 63.5 kg Height: 172.7 cm (5' 7.99 ) Weight in (lb) to have BMI = 25: 164 BMI (Calculated): 44.1 BMI Classification: BMI > or equal to 40.0 Class III 3 Day I/O Summary 04/19 1900 - 04/21 0659 In: 30 [P.O.:30] Out: 150 [Urine:150] Temp: 37.1 ??C (98.8 ??F) Past Medical History: Diagnosis Date ??? Thyroid disease Medications and Lab Review: Scheduled Meds: baricitinib, 4 mg, oral, Daily cetirizine, 10 mg, oral, Daily dexAMETHasone, 6 mg, intravenous, Q24H DEMETRIA enoxaparin, 40 mg, subcutaneous, Q12H DEMETRIA insulin glargine, 10 Units, subcutaneous, Nightly insulin lispro, 0-4 Units, subcutaneous, Nightly insulin lispro, 0-5 Units, subcutaneous, TID with meals insulin lispro, 4 Units, subcutaneous, TID with meals levothyroxine, 75 mcg, oral, Daily - [address], 40 mg, oral, Daily Continuous Infusions: Sodium Date Value Ref Range Status 04/20/2021 142 135 - 145 mmol/L Final Potassium, pl Date Value Ref Range Status 04/20/2021 3.6 3.3 - 4.9 mmol/L Final BUN Date Value Ref Range Status 04/20/2021 16 8 - 25 mg/dL Final Creatinine Date Value Ref Range Status 04/20/2021 0.46 (L) 0.60 - 1.10 mg/dL Final Albumin Date Value Ref Range Status 04/20/2021 2.7 (L) 3.5 - 5.0 g/dL Final Calcium Date Value Ref Range Status 04/20/2021 7.9 (L) 8.5 - 10.3 mg/dL Final Lab Results Component Value Date HGBA1C 7.1 (H) 04/17/2021 Lab Results Component Value Date GLUCOSE 160 04/21/2021 GLUCOSE 115 04/21/2021 GLUCOSE 239 (H) 04/20/2021 GLUCOSE 260 (H) 04/20/2021 GLUCOSE 235 (H) 04/20/2021 GLUCOSE 128 04/20/2021 GLUCOSE 138 04/19/2021 Nursing Assessment: Last BM Date: 04/16/21 Bowel Sounds (All Quadrants): Active Carlos Scale Score: 20 Skin Integrity: Blanchable redness Diet Instructions Follow a heart healthy diet that is low in sodium, trans fat and saturated fat. Read the nutrition facts label on packages. Aim to eat less than 2,000mg sodium per day (about 500-700 mg per meal). Donot add salt to foods and avoid foods that are high sources of sodium, such as fast foods, fried/breaded foods, canned goods, deli meats and gravies/sauces. Increase your intake of foods high in fiber, such as whole grains, fruits and vegetables. For questions, can call [facility] Dietitian's Office at [phone]. If interested, ask Doctor for referral to outpatient Nutrition Counseling and call [phone] to schedule an appointment. Additional resources available online from the [place] [employer] at www.heart.org/en/healthy-living/[email or web address]-eating Nutrition Follow-Up : 04/24/[address],LD * Jamie Darling RRT - 04/21/2021 9:35 AM CDT Pt. Desaturated in low 80's while eating. Pt is put in CPAP pressure of 15 with increased oxygen from 60 to 80%. * Javon Kauffman MD - 04/21/2021 8:25 AM CDT Pulmonary Daily Progress Chief complaint/reason for consult: Covid 19. Interval History: On optiflow this morning, on 60L/80%, sats low nos Afebrile Breathing feels fairly comf occ cough Presenting History: 46 yo woman w hypothyroidism and BMI 44 admitted 04/14 after presenting to the ED with shortness of breath. Sx present about a week. Started w cough. No chest pain. COVID positive. also hospitalized w COVID. No pre-existing lung disease. CT chest with diffuse patchy gg infiltrates consistent w COVID. Steroids began 04/14 Remdesivir started 04/14 Strep screen + on 04/08/21 Covid 19 + pcr 04/08/21 Allergies: No Known Allergies Medications: Scheduled Meds:baricitinib, 4 mg, oral, Daily cetirizine, 10 mg, oral, Daily dexAMETHasone, 6 mg, intravenous, Q24H DEMETRIA enoxaparin, 40 mg, subcutaneous, Q12H DEMETRIA insulin glargine, 10 Units, subcutaneous, Nightly insulin lispro, 0-4 Units, subcutaneous, Nightly insulin lispro, 0-5 Units, subcutaneous, TID with meals insulin lispro, 4 Units, subcutaneous, TID with meals levothyroxine, 75 mcg, oral, Daily - [address], 40 mg, oral, Daily Continuous Infusions: PRN Meds:.benzocaine-menthoL ??? dextrose OR dextrose ??? glucagon ??? hydrOXYzine ??? ondansetron ODT OR ondansetron ??? traZODone CHRISTEN Above review of system reviewed on 04/21/2021 Vitals: Vitals: 04/21/21 0300 04/21/21 0400 04/21/21 0500 04/21/21 0600 BP: 118/61 116/65 114/68 111/67 Pulse: 65 69 68 74 Resp: 30 29 28 28 Temp: 37.3 ??C (99.2 ??F) TempSrc: Axillary SpO2: 94% 95% 93% (!) 89% Weight: Height: Temp (24hrs), Av.8 ??C (98.3 ??F), Min:36.5 ??C (97.7 ??F), Max:37.3 ??C (99.2 ??F) FiO2 (%): [60 %-100 %] 60 % No intake or output data in the 24 hours ending 04/21/21 0826 Physical Exam Vitals and nursing note reviewed. Constitutional: Appearance: She is obese. HENT: Head: Normocephalic and atraumatic. Right Ear: External ear normal. Left Ear: External ear normal. Nose: Nose normal. Eyes: General: No scleral icterus. Cardiovascular: Rate and Rhythm: Normal rate and regular rhythm. Pulmonary: Effort: No respiratory distress. Breath sounds: No wheezing or rales. Abdominal: General: Abdomen is flat. Palpations: Abdomen is soft. Musculoskeletal: General: Normal range of motion. Right lower leg: No edema. Left lower leg: No edema. Skin: General: Skin is warm and dry. Neurological: Mental Status: She is alert. Psychiatric: Behavior: Behavior normal. Lab/Radiology/Diagnostic Review: Labs: Recent Labs Lab Units 04/20/21 0534 04/19/21 0657 04/18/21 0739 WBC K/cumm 9.7 10.7* 9.2 HEMOGLOBIN g/dL 10.2* 11.3* 11.5* HEMATOCRIT % 32.7* 36.7 37.0 PLATELETS K/cumm 217 229 205 NEUTROS PCT % 84.9 84.2 84.5 LYMPHS PCT % 8.2 7.9 8.4 MONOS PCT % 4.9 5.6 5.2 EOS PCT % 1.4 1.5 1.2 Recent Labs Lab Units 04/20/21 2100 04/20/21 1727 04/20/21 1257 04/20/21 0934 04/20/21 0534 04/19/21 0829 04/19/21 0657 04/18/21 1153 04/18/21 0739 SODIUM mmol/L -- -- -- -- 142 -- 143 -- 142 POTASSIUM PLASMA mmol/L -- -- -- -- 3.6 -- 3.8 -- 3.6 CHLORIDE mmol/L -- -- -- -- 106 -- 103 -- 103 CO2 mmol/L -- -- -- -- 29 -- 29 -- 28 ANIONGAP mmol/L -- -- -- -- 7 -- 11 -- 11 GLUCOSE mg/dL -- -- -- -- 128 < > 138 < > 139 POC GLUCOSE MONITOR mg/dL 239* 260* 235* < > -- < > -- < > -- BUN SERUM mg/dL -- -- -- -- 16 -- 15 -- 14 CREATININE mg/dL -- -- -- -- 0.46* -- 0.59* -- 0.54* CALCIUM mg/dL -- -- -- -- 7.9* -- 8.3* -- 8.4* ALBUMIN g/dL -- -- -- -- 2.7* -- 3.1* -- 2.8* ALK PHOS Units/L -- -- -- -- 61 -- 70 -- 70 ALT Units/L -- -- -- -- 28 -- 32 -- 32 AST Units/L -- -- -- -- 28 -- 37 -- 34 BILIRUBIN TOTAL mg/dL -- -- -- -- 0.4 -- 0.5 -- 0.5 < > = values in this interval not displayed. Recent Labs Lab Units 04/16/21 0835 04/15/21 1117 D DIMER ng/mL FEU 879* -- CRP mg/L 77.6* 75.4* Imaging: CXR 04/14 bilateral patchy ground-glass infiltrate left greater than right Other diagnostic tests: I have personally reviewed above laboratory findings, chest imaging, and diagnostic tests 04/21/2021 Assessment and Plan: COVID 19, dx 04/14, symptom onset approx 04/08/21 positive test on 04/08/2021 Acute respiratory failure Hypothyroidism BMI 44 ?? Recs: O2 as required, cpap as needed DVT prophylaxis Dexamethasone remdesivir x5 days, completed baricitinib started 04/15 Monitor d dimer and renal/hepatic panels and CBC ?? * Narayan Joy MD - 04/21/2021 6:22 AM CDT Hospitalist Progress Note Noris Bob MD Shaina Huynh is a 46 y.o. female with chief complaint of: Fatigue, and shortness of breath presented on the admission. Overnight Events: Patient was on CPAP overnight in the [facility]. On OptiFlow during the day 60 L/80%, saturating in the 90s No fever overnight. Subjective: Patient was awake earlier today, was on her OptiFlow. Using her incentive spirometry and improving. Feels comfortable. Objective: Vitals: Temp Min: 36.5 ??C (97.7 ??F) Max: 37.3 ??C (99.2 ??F) Pulse Min: 65 Max: 97 BP Min: 90/64 Max: 166/70 Resp Min: 15 Max: 33 SpO2 Min: 88 % Max: 98 % Most Recent : Vitals: 04/21/21 0500 04/21/21 0600 04/21/21 0927 04/21/21 0932 BP: 114/68 111/67 Pulse: 68 74 Resp: 28 28 Temp: TempSrc: SpO2: 93% (!) 89% 90% Weight: Height: 172.7 cm (5' 7.99 ) No intake or output data in the 24 hours ending 04/21/21 1118 Physical exam: Gen: Patient is a 46-year-old female comfortable with her OptiFlow in [facility] HEENT: No conjunctival pallor Neck: Supple, no palpable LN, no JVD Resp: Poor effort, poor air entry bilateral. CV: S1, S2, RRR GI: Obese, +BS, Soft, no abdominal tenderness. MSK: No lower extremity edema Skin: No rashes Neuro: Ao3, no gross defects Psych: Appropriate mood and affect Lab/Radiology/Diagnostic Review: Reviewed. Recent Results (from the past 24 hour(s)) POCT glucose Collection Time: 04/20/21 12:57 PM Result Value Ref Range Glucose, POC 235 (H) 70 - 199 mg/dL POCT glucose Collection Time: 04/20/21 5:27 PM Result Value Ref Range Glucose, POC 260 (H) 70 - 199 mg/dL POCT glucose Collection Time: 04/20/21 9:00 PM Result Value Ref Range Glucose, POC 239 (H) 70 - 199 mg/dL POCT glucose Collection Time: 04/21/21 8:50 AM Result Value Ref Range Glucose, POC 115 70 - 199 mg/dL Assessment: Principal Problem: Pneumonia due to COVID-19 virus Active Problems: Hyperlipidemia Hypothyroidism Acute respiratory failure with hypoxia (CMS/HCC) (HCC) Elevated AST (SGOT) Dehydration Plan: Patient is a 46-year-old female with history of thyroid disease, and obesity. Patient presented to the emergency room on April 14, 2021 with worsening of shortness of breath, and fatigue. Patient was admitted through the emergency room on April 14, [address] Barriga, patient was seen H and P was done by our nurse practitioner Ms. Guzman on April 14, 2021, then patient was followed with Dr. Oates on April 15. I Dr. Joy started to follow patient on April 16, 2021. Patient followed with pulmonary consult. Acute hypoxic respiratory failure: Presented on the admission secondary to COVID-19 pneumonia. Patient required to be on high dose of oxygen nasal cannula, needed to be transferred to [facility]. Patient has been on Opti Flow/BiPAP overnight. Trying to taper down if able to tolerate. Continue with Decadron 6 mg IV daily to finish 10 days of treatment, Remdesivir daily to finish 5 days of treatment was completed , and Baricitinib 4 mg oral daily was started on April 15, 2021 for 14 days treatment. Followed with pulmonary consult. - CT chest PE CTA with contrast done on April 14, 2021 IMPRESSION: NO ACUTE OR CHRONIC PULMONARY EMBOLISM. EXTENSIVE BILATERAL INFILTRATES CONSISTENT WITH COVID 19 APPEARANCE. Stat report by [facility] Electronically signed by: Silviano Whitehead M.D. Possible upper respiratory infection: Continue with penicillin V potassium 500 mg 1 tablet twice a day. Completed treatment course. Diabetes mellitus type 2: Patient reported that she did have gestational diabetes but never continued with her diabetes as she reported. Hemoglobin A1c done on April 17, 2021 was 7.1. Informed the patient regarding her diabetes and the need for treatment specially now she is gettingIV steroid/Decadron causing her hyperglycemia. Started with regimen of insulin Lantus/lispro with meals/insulin sliding scale. Hypothyroidism: Continue with levothyroxine 75 mcg 1 tablet daily. Preventions: Continue with Lovenox 40 mg subcu twice a day for DVT prophylaxis. Keep patient on Protonix 40 mg 1 tab daily. Informed the patient in details regarding the findings we have regarding her care, patient is awareabout her problems. Patient followed with pulmonary consult. Reviewed blood workup from earlier this morning. Encouraged patient to use her incentive spirometry. Encourage patient to increase activity when able to sit specially with her OptiFlow it is hard to increase her activity. Continue with current med treatment and monitoring. Anticipated discharge: 5-6 Days. Narayan Joy MD Hospitalist 04/21/2021 11:18 AM * Javon Kauffman MD - 04/20/2021 7:32 AM CDT Pulmonary Daily Progress Chief complaint/reason for consult: Covid 19. Interval History: Wore CPAP overnight, sats high 90s Afebrile Breathing feels fairly comf No specific complaints today Presenting History: 46 yo woman w hypothyroidism and BMI 44 admitted 04/14 after presenting to the ED with shortness of breath. Sx present about a week. Started w cough. No chest pain. COVID positive. also hospitalized w COVID. No pre-existing lung disease. CT chest with diffuse patchy gg infiltrates consistent w COVID. Steroids began 04/14 Remdesivir started 04/14 Strep screen + on 04/08/21 Covid 19 + pcr 04/08/21 Allergies: No Known Allergies Medications: Scheduled Meds:baricitinib, 4 mg, oral, Daily cetirizine, 10 mg, oral, Daily dexAMETHasone, 6 mg, intravenous, Q24H DEMETRIA enoxaparin, 40 mg, subcutaneous, Q12H DEMETRIA insulin glargine, 10 Units, subcutaneous, Nightly insulin lispro, 0-4 Units, subcutaneous, Nightly insulin lispro, 0-5 Units, subcutaneous, TID with meals insulin lispro, 4 Units, subcutaneous, TID with meals levothyroxine, 75 mcg, oral, Daily - [address], 40 mg, oral, Daily Continuous Infusions: PRN Meds:.benzocaine-menthoL ??? dextrose OR dextrose ??? glucagon ??? hydrOXYzine ??? ondansetron ODT OR ondansetron ??? traZODone CHRISTEN Valentino review of system reviewed on 04/20/2021 Vitals: Vitals: 04/20/21 0200 04/20/21 0300 04/20/21 0400 04/20/21 0500 BP: 101/54 100/60 104/56 111/68 Pulse: (!) 45 (!) 49 50 63 Resp: (!) 31 29 28 29 Temp: 37.1 ??C (98.8 ??F) TempSrc: Axillary SpO2: 96% 96% 100% 100% Weight: Height: Temp (24hrs), Av.2 ??C (98.9 ??F), Min:37.1 ??C (98.7 ??F), Max:37.4 ??C (99.3 ??F) FiO2 (%): [90 %-100 %] 100 % Intake/Output Summary (Last 24 hours) at 04/20/2021 0732 Last data filed at 04/20/2021 0555 Gross per 24 hour Intake 30 ml Output 150 ml Net -120 ml Physical Exam Vitals and nursing note reviewed. Constitutional: Appearance: She is obese. HENT: Head: Normocephalic and atraumatic. Right Ear: External ear normal. Left Ear: External ear normal. Nose: Nose normal. Eyes: General: No scleral icterus. Cardiovascular: Rate and Rhythm: Normal rate and regular rhythm. Pulmonary: Effort: No respiratory distress. Breath sounds: No wheezing or rales. Abdominal: General: Abdomen is flat. Palpations: Abdomen is soft. Musculoskeletal: General: Normal range of motion. Right lower leg: No edema. Left lower leg: No edema. Skin: General: Skin is warm and dry. Neurological: Mental Status: She is alert. Psychiatric: Behavior: Behavior normal. Lab/Radiology/Diagnostic Review: Labs: Recent Labs Lab Units 04/20/21 0534 04/19/21 0657 04/18/21 0739 WBC K/cumm 9.7 10.7* 9.2 HEMOGLOBIN g/dL 10.2* 11.3* 11.5* HEMATOCRIT % 32.7* 36.7 37.0 PLATELETS K/cumm 217 229 205 NEUTROS PCT % 84.9 84.2 84.5 LYMPHS PCT % 8.2 7.9 8.4 MONOS PCT % 4.9 5.6 5.2 EOS PCT % 1.4 1.5 1.2 Recent Labs Lab Units 04/20/21 0534 04/19/21 2055 04/19/21 1749 04/19/21 0829 04/19/21 0657 04/18/21 1153 04/18/21 0739 SODIUM mmol/L 142 -- -- -- 143 -- 142 POTASSIUM PLASMA mmol/L 3.6 -- -- -- 3.8 -- 3.6 CHLORIDE mmol/L 106 -- -- -- 103 -- 103 CO2 mmol/L 29 -- -- -- 29 -- 28 ANIONGAP mmol/L 7 -- -- -- 11 -- 11 GLUCOSE mg/dL 128 -- -- -- 138 < > 139 POC GLUCOSE MONITOR mg/dL -- 232* 225* < > -- < > -- BUN SERUM mg/dL 16 -- -- -- 15 -- 14 CREATININE mg/dL 0.46* -- -- -- 0.59* -- 0.54* CALCIUM mg/dL 7.9* -- -- -- 8.3* -- 8.4* ALBUMIN g/dL 2.7* -- -- -- 3.1* -- 2.8* ALK PHOS Units/L 61 -- -- -- 70 -- 70 ALT Units/L 28 -- -- -- 32 -- 32 AST Units/L 28 -- -- -- 37 -- 34 BILIRUBIN TOTAL mg/dL 0.4 -- -- -- 0.5 -- 0.5 < > = values in this interval not displayed. Recent Labs Lab Units 04/16/21 0835 04/15/21 1117 04/14/21 0147 D DIMER ng/mL FEU 879* -- 662* CRP mg/L 77.6* 75.4* -- Imaging: CXR 04/14 bilateral patchy ground-glass infiltrate left greater than right Other diagnostic tests: I have personally reviewed above laboratory findings, chest imaging, and diagnostic tests 04/20/2021 Assessment and Plan: COVID 19, dx 04/14, symptom onset approx 04/08/21 positive test on 04/08/2021 Acute respiratory failure Hypothyroidism BMI 44 ?? Recs: O2 as required, cpap as needed DVT prophylaxis Dexamethasone remdesivir x5 days, completed baricitinib started 04/15 Monitor d dimer and renal/hepatic panels and CBC ?? * Narayan Joy MD - 04/20/2021 5:59 AM CDT Hospitalist Progress Note Noris Bob MD Shaina Huynh is a 46 y.o. female with chief complaint of: Fatigue, and shortness of breath presented on the admission. Overnight Events: Patient was on CPAP overnight, reported able to keep in problem position for 2-3 hours in the [facility]. During the day patient on Opti Flow 60 L 100% saturating in the high 90s. No fever overnight. Subjective: Patient was feeling well earlier this morning, breathing more comfortably. Trying to use her incentive spirometry on regular basis. Objective: Vitals: Temp Min: 37.1 ??C (98.7 ??F) Max: 37.3 ??C (99.1 ??F) Pulse Min: 45 Max: 84 BP Min: 100/60 Max: 135/72 Resp Min: 18 Max: 37 SpO2 Min: 88 % Max: 100 % Most Recent : Vitals: 04/20/21 0200 04/20/21 0300 04/20/21 0400 04/20/21 0500 BP: 101/54 100/60 104/56 111/68 Pulse: (!) 45 (!) 49 50 63 Resp: (!) 31 29 28 29 Temp: 37.1 ??C (98.8 ??F) TempSrc: Axillary SpO2: 96% 96% 100% 100% Weight: Height: Intake/Output Summary (Last 24 hours) at 04/20/2021 0916 Last data filed at 04/20/2021 0555 Gross per 24 hour Intake 30 ml Output 150 ml Net -120 ml Physical exam: Gen: Patient is a 46-year-old female comfortable with her OptiFlow in [facility] HEENT: No conjunctival pallor Neck: Supple, no palpable LN, no JVD Resp: Poor effort, poor air entry bilateral. CV: S1, S2, RRR GI: Obese, +BS, Soft, no abdominal tenderness. MSK: No lower extremity edema Skin: No rashes Neuro: Ao3, no gross defects Psych: Appropriate mood and affect Lab/Radiology/Diagnostic Review: Reviewed. Recent Results (from the past 24 hour(s)) POCT glucose Collection Time: 04/19/21 12:42 PM Result Value Ref Range Glucose, POC 189 70 - 199 mg/dL POCT glucose Collection Time: 04/19/21 5:49 PM Result Value Ref Range Glucose, POC 225 (H) 70 - 199 mg/dL POCT glucose Collection Time: 04/19/21 8:55 PM Result Value Ref Range Glucose, POC 232 (H) 70 - 199 mg/dL Comprehensive metabolic panel Collection Time: 04/20/21 5:34 AM Result Value Ref Range Sodium 142 135 - 145 mmol/L Potassium, pl 3.6 3.3 - 4.9 mmol/L Chloride 106 97 - 110 mmol/L CO2 29 22 - 32 mmol/L Anion gap 7 2 - 15 mmol/L BUN 16 8 - 25 mg/dL Creatinine 0.46 (L) 0.60 - 1.10 mg/dL Glucose 128 70 - 199 mg/dL Calcium 7.9 (L) 8.5 - 10.3 mg/dL Bilirubin, total 0.4 0.1 - 1.2 mg/dL Protein, pl 5.8 (L) 6.5 - 8.5 g/dL Albumin 2.7 (L) 3.5 - 5.0 g/dL Alk phos 61 40 - 130 Units/L ALT 28 7 - 45 Units/L AST 28 10 - 45 Units/L CBC with auto differential Collection Time: 04/20/21 5:34 AM Result Value Ref Range WBC 9.7 3.8 - 9.9 K/cumm Hgb 10.2 (L) 11.9 - 15.5 g/dL Hct 32.7 (L) 35.6 - 45.5 % Plt 217 150 - 400 K/cumm MPV 12.4 (H) 9.1 - 12.3 fL RBC 3.64 (L) 3.90 - 5.20 M/cumm MCV 89.8 81.3 - 96.4 fL MCH 28.0 27.1 - 33.3 pg MCHC 31.2 (L) 32.3 - 35.7 g/dL RDW CV 14.9 11.1 - 14.9 % RDW SD 48.7 (H) 35.7 - 48.1 fL NRBC abs 0.00 0.00 - 0.01 K/cumm Differential, auto Collection Time: 04/20/21 5:34 AM Result Value Ref Range Neutrophil abs 8.3 (H) 1.7 - 6.5 K/cumm Imm gran abs 0.1 0.0 - 0.1 K/cumm Lymphocyte abs 0.8 0.8 - 3.3 K/cumm Monocyte abs 0.5 0.2 - 0.8 K/cumm Eosinophil abs 0.1 0.0 - 0.5 K/cumm Basophil abs 0.0 0.0 - 0.1 K/cumm Neutrophil pct 84.9 % Imm gran pct 0.5 % Lymphocyte pct 8.2 % Monocyte pct 4.9 % Eosinophil pct 1.4 % Basophil pct 0.1 % eGFR Collection Time: 04/20/21 5:34 AM Result Value Ref Range eGFR 119 mL/min/1.73 m2 Assessment: Principal Problem: Pneumonia due to COVID-19 virus Active Problems: Hyperlipidemia Hypothyroidism Acute respiratory failure with hypoxia (CMS/HCC) (HCC) Elevated AST (SGOT) Dehydration Plan: Patient is a 46-year-old female with history of thyroid disease, and obesity. Patient presented to the emergency room on April 14, 2021 with worsening of shortness of breath, and fatigue. Patient was admitted through the emergency room on April 14, [address] Barriga, patient was seen H and P was done by our nurse practitioner Ms. Guzman on April 14, 2021, then patient was followed with Dr. Oates on April 15. I Dr. Joy started to follow patient on April 16, 2021. Patient followed with pulmonary consult. Acute hypoxic respiratory failure: Presented on the admission secondary to COVID-19 pneumonia. Patient required to be on high dose of oxygen nasal cannula, needed to be transferred to [facility]. Patient has been on Opti Flow/BiPAP overnight. Trying to taper down if able to tolerate. Continue with Decadron 6 mg IV daily to finish 10 days of treatment, Remdesivir daily to finish 5 days of treatment, and Baricitinib 4 mg oral daily was started on April 15, 2021 for 14 days treatment. Followed with pulmonary consult. - CT chest PE CTA with contrast done on April 14, 2021 IMPRESSION: NO ACUTE OR CHRONIC PULMONARY EMBOLISM. EXTENSIVE BILATERAL INFILTRATES CONSISTENT WITH COVID 19 APPEARANCE. Stat report by [facility] Electronically signed by: Silviano Whitehead M.D. Possible upper respiratory infection: Continue with the Unasyn V potassium 500 mg 1 tablet twice a day. Diabetes mellitus type 2: Patient reported that she did have gestational diabetes but never continued with her diabetes as she reported. Hemoglobin A1c done on April 17, 2021 was 7.1. Informed the patient regarding her diabetes and the need for treatment specially now she is gettingIV steroid/Decadron causing her hyperglycemia. Started with regimen of insulin Lantus/lispro with meals/insulin sliding scale. Hypothyroidism: Continue with levothyroxine 75 mcg 1 tablet daily. Preventions: Continue with Lovenox 40 mg subcu twice a day for DVT prophylaxis. Keep patient on Protonix 40 mg 1 tab daily. Informed the patient in details regarding the findings we have regarding her care, patient is awareabout her problems. Patient followed with pulmonary consult. Reviewed blood workup from earlier this morning. Encouraged patient to use her incentive spirometry. Reviewed blood workup from earlier today. Continue with current med treatment and monitoring. Anticipated discharge: 5-6 Days. Narayan Joy MD Hospitalist 04/20/2021 9:16 AM * Javon Kauffman MD - 04/19/2021 8:02 AM CDT Pulmonary Daily Progress Chief complaint/reason for consult: Covid 19. Interval History: on optiflow 100%/60L, sats low 90s Wore cpap overnight Afebrile Breathing feels fairly comf, has some cough Presenting History: 46 yo woman w hypothyroidism and BMI 44 admitted 04/14 after presenting to the ED with shortness of breath. Sx present about a week. Started w cough. No chest pain. COVID positive. also hospitalized w COVID. No pre-existing lung disease. CT chest with diffuse patchy gg infiltrates consistent w COVID. Steroids began 04/14 Remdesivir started 04/14 Strep screen + on 04/08/21 Covid 19 + pcr 04/08/21 Allergies: No Known Allergies Medications: Scheduled Meds:baricitinib, 4 mg, oral, Daily cetirizine, 10 mg, oral, Daily dexAMETHasone, 6 mg, intravenous, Q24H DEMETRIA enoxaparin, 40 mg, subcutaneous, Q12H DEMETRIA insulin glargine, 10 Units, subcutaneous, Nightly insulin lispro, 0-4 Units, subcutaneous, Nightly insulin lispro, 0-5 Units, subcutaneous, TID with meals insulin lispro, 4 Units, subcutaneous, TID with meals levothyroxine, 75 mcg, oral, Daily - [address], 40 mg, oral, Daily Continuous Infusions: PRN Meds:.benzocaine-menthoL ??? dextrose OR dextrose ??? glucagon ??? hydrOXYzine ??? ondansetron ODT OR ondansetron ??? traZODone ROS Above review of system reviewed on 04/19/2021 Vitals: Vitals: 04/19/21 0422 04/19/21 0500 04/19/21 0600 04/19/21 0800 BP: 109/52 125/79 Pulse: 56 63 68 69 Resp: (!) 39 18 21 Temp: TempSrc: SpO2: 95% 97% 91% Weight: Height: Temp (24hrs), Av.2 ??C (99 ??F), Min:37 ??C (98.6 ??F), Max:37.9 ??C (100.3 ??F) FiO2 (%): [95 %-100 %] 95 % No intake or output data in the 24 hours ending 04/19/21 0802 Physical Exam Vitals and nursing note reviewed. Constitutional: Appearance: She is obese. HENT: Head: Normocephalic and atraumatic. Right Ear: External ear normal. Left Ear: External ear normal. Nose: Nose normal. Eyes: General: No scleral icterus. Cardiovascular: Rate and Rhythm: Normal rate and regular rhythm. Pulmonary: Effort: No respiratory distress. Breath sounds: No wheezing, rhonchi or rales. Abdominal: General: Abdomen is flat. Palpations: Abdomen is soft. Musculoskeletal: General: Normal range of motion. Right lower leg: No edema. Left lower leg: No edema. Skin: General: Skin is warm and dry. Neurological: Mental Status: She is alert. Psychiatric: Behavior: Behavior normal. Lab/Radiology/Diagnostic Review: Labs: Recent Labs Lab Units 04/19/21 0657 04/18/21 0739 04/17/21 0431 WBC K/cumm 10.7* 9.2 9.5 HEMOGLOBIN g/dL 11.3* 11.5* 11.5* HEMATOCRIT % 36.7 37.0 36.5 PLATELETS K/cumm 229 205 203 NEUTROS PCT % 84.2 84.5 88.9 LYMPHS PCT % 7.9 8.4 6.3 MONOS PCT % 5.6 5.2 4.4 EOS PCT % 1.5 1.2 0.1 Recent Labs Lab Units 04/19/21 0657 04/18/21 2043 04/18/21 1732 04/18/21 1153 04/18/21 0739 04/17/21 1112 04/17/21 0431 SODIUM mmol/L 143 -- -- -- 142 -- 141 POTASSIUM PLASMA mmol/L 3.8 -- -- -- 3.6 -- 3.5 CHLORIDE mmol/L 103 -- -- -- 103 -- 102 CO2 mmol/L 29 -- -- -- 28 -- 29 ANIONGAP mmol/L 11 -- -- -- 11 -- 10 GLUCOSE mg/dL 138 -- -- -- 139 -- 172 POC GLUCOSE MONITOR mg/dL -- 235* 255* < > -- < > -- BUN SERUM mg/dL 15 -- -- -- 14 -- 12 CREATININE mg/dL 0.59* -- -- -- 0.54* -- 0.47* CALCIUM mg/dL 8.3* -- -- -- 8.4* -- 8.3* ALBUMIN g/dL 3.1* -- -- -- 2.8* -- 2.9* ALK PHOS Units/L 70 -- -- -- 70 -- 76 ALT Units/L 32 -- -- -- 32 -- 39 AST Units/L 37 -- -- -- 34 -- 52* BILIRUBIN TOTAL mg/dL 0.5 -- -- -- 0.5 -- 0.5 < > = values in this interval not displayed. Recent Labs Lab Units 04/16/21 0835 04/15/21 1117 04/14/21 0147 D DIMER ng/mL FEU 879* -- 662* CRP mg/L 77.6* 75.4* -- Imaging: CXR 04/14 bilateral patchy ground-glass infiltrate left greater than right Other diagnostic tests: I have personally reviewed above laboratory findings, chest imaging, and diagnostic tests 04/19/2021 Assessment and Plan: COVID 19, dx 04/14, symptom onset approx 04/08/21 positive test on 04/08/2021 Acute respiratory failure Hypothyroidism BMI 44 ?? Recs: O2 as required, cpap as needed DVT prophylaxis Dexamethasone times 10 days remdesivir x5 days baricitinib started 04/15 Monitor d dimer and renal/hepatic panels and CBC ?? * Narayan Joy MD - 04/19/2021 5:54 AM CDT Hospitalist Progress Note Noris Bob MD Shaina Huynh is a 46 y.o. female with chief complaint of: Fatigue, and shortness of breath presented on the admission. Overnight Events: Patient was placed on BCPAP overnight Currently patient on Opti Flow 60 L 100% saturating in the high 90s. No fever overnight. Subjective: Patient was feeling well earlier this morning, was happy that her was able to leave the hospital yesterday and he is home and trying to get their son back with him too. Trying to use her incentive spirometry and doing better today. Objective: Vitals: Temp Min: 37 ??C (98.6 ??F) Max: 37.9 ??C (100.3 ??F) Pulse Min: 54 Max: 89 BP Min: 83/55 Max: 139/70 Resp Min: 17 Max: 39 SpO2 Min: 87 % Max: 98 % Most Recent : Vitals: 04/19/21 0800 04/19/21 0815 04/19/21 0830 04/19/21 1000 BP: (!) 83/55 107/72 Pulse: 69 63 80 Resp: Temp: 37.4 ??C (99.3 ??F) TempSrc: Oral SpO2: 91% 91% 90% Weight: Height: No intake or output data in the 24 hours ending 04/19/21 1046 Physical exam: Gen: Patient is a 46-year-old female comfortable with her OptiFlow in [facility] HEENT: No conjunctival pallor Neck: Supple, no palpable LN, no JVD Resp: Poor effort, poor air entry bilateral. CV: S1, S2, RRR GI: Obese, +BS, Soft, no abdominal tenderness. MSK: No lower extremity edema Skin: No rashes Neuro: Ao3, no gross defects Psych: Appropriate mood and affect Lab/Radiology/Diagnostic Review: Reviewed. Recent Results (from the past 24 hour(s)) POCT glucose Collection Time: 04/18/21 11:53 AM Result Value Ref Range Glucose, POC 153 70 - 199 mg/dL POCT glucose Collection Time: 04/18/21 5:32 PM Result Value Ref Range Glucose, POC 255 (H) 70 - 199 mg/dL POCT glucose Collection Time: 04/18/21 8:43 PM Result Value Ref Range Glucose, POC 235 (H) 70 - 199 mg/dL Comprehensive metabolic panel Collection Time: 04/19/21 6:57 AM Result Value Ref Range Sodium 143 135 - 145 mmol/L Potassium, pl 3.8 3.3 - 4.9 mmol/L Chloride 103 97 - 110 mmol/L CO2 29 22 - 32 mmol/L Anion gap 11 2 - 15 mmol/L BUN 15 8 - 25 mg/dL Creatinine 0.59 (L) 0.60 - 1.10 mg/dL Glucose 138 70 - 199 mg/dL Calcium 8.3 (L) 8.5 - 10.3 mg/dL Bilirubin, total 0.5 0.1 - 1.2 mg/dL Protein, pl 6.0 (L) 6.5 - 8.5 g/dL Albumin 3.1 (L) 3.5 - 5.0 g/dL Alk phos 70 40 - 130 Units/L ALT 32 7 - 45 Units/L AST 37 10 - 45 Units/L CBC with auto differential Collection Time: 04/19/21 6:57 AM Result Value Ref Range WBC 10.7 (H) 3.8 - 9.9 K/cumm Hgb 11.3 (L) 11.9 - 15.5 g/dL Hct 36.7 35.6 - 45.5 % Plt 229 150 - 400 K/cumm MPV 12.1 9.1 - 12.3 fL RBC 3.99 3.90 - 5.20 M/cumm MCV 92.0 81.3 - 96.4 fL MCH 28.3 27.1 - 33.3 pg MCHC 30.8 (L) 32.3 - 35.7 g/dL RDW CV 14.8 11.1 - 14.9 % RDW SD 50.5 (H) 35.7 - 48.1 fL NRBC abs 0.00 0.00 - 0.01 K/cumm Differential, auto Collection Time: 04/19/21 6:57 AM Result Value Ref Range Neutrophil abs 9.0 (H) 1.7 - 6.5 K/cumm Imm gran abs 0.1 0.0 - 0.1 K/cumm Lymphocyte abs 0.9 0.8 - 3.3 K/cumm Monocyte abs 0.6 0.2 - 0.8 K/cumm Eosinophil abs 0.2 0.0 - 0.5 K/cumm Basophil abs 0.0 0.0 - 0.1 K/cumm Neutrophil pct 84.2 % Imm gran pct 0.7 % Lymphocyte pct 7.9 % Monocyte pct 5.6 % Eosinophil pct 1.5 % Basophil pct 0.1 % eGFR Collection Time: 04/19/21 6:57 AM Result Value Ref Range eGFR 110 mL/min/1.73 m2 POCT glucose Collection Time: 04/19/21 8:29 AM Result Value Ref Range Glucose, POC 144 70 - 199 mg/dL Assessment: Principal Problem: Pneumonia due to COVID-19 virus Active Problems: Hyperlipidemia Hypothyroidism Acute respiratory failure with hypoxia (CMS/HCC) (HCC) Elevated AST (SGOT) Dehydration Plan: Patient is a 46-year-old female with history of thyroid disease, and obesity. Patient presented to the emergency room on April 14, 2021 with worsening of shortness of breath, and fatigue. Patient was admitted through the emergency room on April 14, [address] Barriga, patient was seen H and P was done by our nurse practitioner Ms. Guzman on April 14, 2021, then patient was followed with Dr. Oates on April 15. I Dr. Joy started to follow patient on April 16, 2021. Patient followed with pulmonary consult. Acute hypoxic respiratory failure: Presented on the admission secondary to COVID-19 pneumonia. Patient required to be on high dose of oxygen nasal cannula, needed to be transferred to [facility]. Patient has been on Opti Flow/BiPAP overnight. Trying to taper down if able to tolerate. Continue with Decadron 6 mg IV daily to finish 10 days of treatment, Remdesivir daily to finish 5 days of treatment, and Baricitinib 4 mg oral daily was started on April 15, 2021 for 14 days treatment. Followed with pulmonary consult. - CT chest PE CTA with contrast done on April 14, 2021 IMPRESSION: NO ACUTE OR CHRONIC PULMONARY EMBOLISM. EXTENSIVE BILATERAL INFILTRATES CONSISTENT WITH COVID 19 APPEARANCE. Stat report by [facility] Electronically signed by: Silviano Whitehead M.D. Possible upper respiratory infection: Continue with the Unasyn V potassium 500 mg 1 tablet twice a day. Diabetes mellitus type 2: Patient reported that she did have gestational diabetes but never continued with her diabetes as she reported. Hemoglobin A1c done on April 17, 2021 was 7.1. Informed the patient regarding her diabetes and the need for treatment specially now she is gettingIV steroid/Decadron causing her hyperglycemia. Started with regimen of insulin Lantus/lispro with meals/insulin sliding scale. Hypothyroidism: Continue with levothyroxine 75 mcg 1 tablet daily. Preventions: Continue with Lovenox 40 mg subcu twice a day for DVT prophylaxis. Keep patient on Protonix 40 mg 1 tab daily. Informed the patient in details regarding the findings we have regarding her care, patient is awareabout her problems. Patient followed with pulmonary consult. Reviewed blood workup from earlier this morning. Encouraged patient to use her incentive spirometry. Continue with current med treatment and monitoring. Anticipated discharge: 5-6 Days. Narayan Joy MD Hospitalist 04/19/2021 10:46 AM * Javon Kauffman MD - 04/18/2021 8:21 AM CDT Pulmonary Daily Progress Chief complaint/reason for consult: Covid 19. Interval History: on optiflow 100%/60L, sats high 80s Wore cpap overnight Able to tolerate some prone positioning Afebrile Breathing feels fairly comf Presenting History: 46 yo woman w hypothyroidism and BMI 44 admitted 04/14 after presenting to the ED with shortness of breath. Sx present about a week. Started w cough. No chest pain. COVID positive. also hospitalized w COVID. No pre-existing lung disease. CT chest with diffuse patchy gg infiltrates consistent w COVID. Steroids began 04/14 Remdesivir started 04/14 Strep screen + on 04/08/21 Covid 19 + pcr 04/08/21 Allergies: No Known Allergies Medications: Scheduled Meds:baricitinib, 4 mg, oral, Daily cetirizine, 10 mg, oral, Daily dexAMETHasone, 6 mg, intravenous, Q24H DEMETRIA enoxaparin, 40 mg, subcutaneous, Q12H DEMETRIA insulin glargine, 10 Units, subcutaneous, Nightly insulin lispro, 0-4 Units, subcutaneous, Nightly insulin lispro, 0-5 Units, subcutaneous, TID with meals insulin lispro, 4 Units, subcutaneous, TID with meals levothyroxine, 75 mcg, oral, Daily - [address], 40 mg, oral, Daily remdesivir, 100 mg, intravenous, Q24H Continuous Infusions: PRN Meds:.benzocaine-menthoL ??? dextrose OR dextrose ??? glucagon ??? hydrOXYzine ??? ondansetron ODT OR ondansetron ??? traZODone ROS Above review of system reviewed on 04/18/2021 Vitals: Vitals: 04/18/21 0300 04/18/21 0400 04/18/21 0420 04/18/21 0736 BP: 122/71 Pulse: 62 67 57 Resp: (!) 31 15 Temp: 37.2 ??C (98.9 ??F) TempSrc: Oral SpO2: 91% 100% 93% Weight: Height: Temp (24hrs), Av.9 ??C (98.5 ??F), Min:36 ??C (96.8 ??F), Max:37.6 ??C (99.6 ??F) FiO2 (%): [100 %] 100 % Intake/Output Summary (Last 24 hours) at 04/18/2021 0822 Last data filed at 04/17/2021 1600 Gross per 24 hour Intake 420 ml Output 650 ml Net -230 ml Physical Exam Vitals and nursing note reviewed. Constitutional: Appearance: She is obese. HENT: Head: Normocephalic and atraumatic. Right Ear: External ear normal. Left Ear: External ear normal. Nose: Nose normal. Eyes: General: No scleral icterus. Cardiovascular: Rate and Rhythm: Normal rate and regular rhythm. Pulmonary: Effort: No respiratory distress. Breath sounds: No wheezing, rhonchi or rales. Abdominal: General: Abdomen is flat. Palpations: Abdomen is soft. Musculoskeletal: General: Normal range of motion. Right lower leg: No edema. Left lower leg: No edema. Skin: General: Skin is warm and dry. Neurological: Mental Status: She is alert. Psychiatric: Behavior: Behavior normal. Lab/Radiology/Diagnostic Review: Labs: Recent Labs Lab Units 04/18/21 0739 04/17/21 0431 04/16/21 1208 WBC K/cumm 9.2 9.5 9.1 HEMOGLOBIN g/dL 11.5* 11.5* 12.0 HEMATOCRIT % 37.0 36.5 38.2 PLATELETS K/cumm 205 203 192 NEUTROS PCT % 84.5 88.9 89.5 LYMPHS PCT % 8.4 6.3 5.3 MONOS PCT % 5.2 4.4 4.8 EOS PCT % 1.2 0.1 0.0 Recent Labs Lab Units 04/18/21 0731 04/17/21 2045 04/17/21 1744 04/17/21 1112 04/17/21 0431 04/16/21 0835 04/16/21 0835 04/15/21 2307 04/14/21 0147 SODIUM mmol/L -- -- -- -- 141 -- 143 -- 136 POTASSIUM PLASMA mmol/L -- -- -- -- 3.5 -- 3.3 -- 3.4 CHLORIDE mmol/L -- -- -- -- 102 -- 104 -- 95* CO2 mmol/L -- -- -- -- 29 -- 29 -- 26 ANIONGAP mmol/L -- -- -- -- 10 -- 10 -- 15 GLUCOSE mg/dL -- -- -- -- 172 < > 171 -- 181 POC GLUCOSE MONITOR mg/dL 133 207* 288* < > -- -- -- < > -- BUN SERUM mg/dL -- -- -- -- 12 -- 12 -- 11 CREATININE mg/dL -- -- -- -- 0.47* -- 0.49* -- 0.64 CALCIUM mg/dL -- -- -- -- 8.3* -- 8.4* -- 8.6 ALBUMIN g/dL -- -- -- -- 2.9* -- 3.2* -- 3.8 ALK PHOS Units/L -- -- -- -- 76 -- 71 -- 74 ALT Units/L -- -- -- -- 39 -- 37 -- 37 AST Units/L -- -- -- -- 52* -- 42 -- 52* BILIRUBIN TOTAL mg/dL -- -- -- -- 0.5 -- 0.4 -- 0.5 < > = values in this interval not displayed. Recent Labs Lab Units 04/16/21 0835 04/15/21 1117 04/14/21 0147 D DIMER ng/mL FEU 879* -- 662* CRP mg/L 77.6* 75.4* -- Imaging: CXR 04/14 bilateral patchy ground-glass infiltrate left greater than right Other diagnostic tests: I have personally reviewed above laboratory findings, chest imaging, and diagnostic tests 04/18/2021 Assessment and Plan: COVID 19, dx 04/14, symptom onset approx 04/08/21 positive test on 04/08/2021 Acute respiratory failure Hypothyroidism BMI 44 ?? Recs: O2 as required, cpap as needed DVT prophylaxis Dexamethasone times 10 days remdesivir x5 days baricitinib started 04/15 Monitor d dimer and renal/hepatic panels and CBC ?? * Narayan Joy MD - 04/18/2021 6:17 AM CDT Hospitalist Progress Note Noris Bob MD Shaina Huynh is a 46 y.o. female with chief complaint of: Fatigue, and shortness of breath presented on the admission. Overnight Events: Patient was placed on BiPAP overnight, needed to be in proper position due to desaturation overnight. Currently patient on Opti Flow 60 L 100% saturating in the high 80s. No fever overnight. Subjective: Patient was feeling okay earlier today, was sitting in her bed. Trying to use her incentive spirometry with very minimum effort at this point. Objective: Vitals: Temp Min: 36 ??C (96.8 ??F) Max: 37.6 ??C (99.6 ??F) Pulse Min: 57 Max: 86 BP Min: 108/74 Max: 125/68 Resp Min: 11 Max: 45 SpO2 Min: 82 % Max: 100 % Most Recent : Vitals: 04/18/21 0300 04/18/21 0400 04/18/21 0420 04/18/21 0736 BP: 122/71 Pulse: 62 67 57 Resp: (!) 31 15 Temp: 37.2 ??C (98.9 ??F) TempSrc: Oral SpO2: 91% 100% 93% Weight: Height: Intake/Output Summary (Last 24 hours) at 04/18/2021 1008 Last data filed at 04/17/2021 1600 Gross per 24 hour Intake 420 ml Output 650 ml Net -230 ml Physical exam: Gen: Patient is a 46-year-old female comfortable with her OptiFlow in [facility] HEENT: No conjunctival pallor Neck: Supple, no palpable LN, no JVD Resp: Poor effort, poor air entry bilateral. CV: S1, S2, RRR GI: Obese, +BS, Soft, no abdominal tenderness. MSK: No lower extremity edema Skin: No rashes Neuro: Ao3, no gross defects Psych: Appropriate mood and affect Lab/Radiology/Diagnostic Review: Reviewed. Recent Results (from the past 24 hour(s)) Hemoglobin A1c Collection Time: 04/17/21 10:43 AM Result Value Ref Range Hgb A1C 7.1 (H) 4.0 - 5.6 % Estimated Average Glucose 157 mg/dL POCT glucose Collection Time: 04/17/21 11:12 AM Result Value Ref Range Glucose, POC 224 (H) 70 - 199 mg/dL POCT glucose Collection Time: 04/17/21 5:44 PM Result Value Ref Range Glucose, POC 288 (H) 70 - 199 mg/dL POCT glucose Collection Time: 04/17/21 8:45 PM Result Value Ref Range Glucose, POC 207 (H) 70 - 199 mg/dL POCT glucose Collection Time: 04/18/21 7:31 AM Result Value Ref Range Glucose, POC 133 70 - 199 mg/dL Comprehensive metabolic panel Collection Time: 04/18/21 7:39 AM Result Value Ref Range Sodium 142 135 - 145 mmol/L Potassium, pl 3.6 3.3 - 4.9 mmol/L Chloride 103 97 - 110 mmol/L CO2 28 22 - 32 mmol/L Anion gap 11 2 - 15 mmol/L BUN 14 8 - 25 mg/dL Creatinine 0.54 (L) 0.60 - 1.10 mg/dL Glucose 139 70 - 199 mg/dL Calcium 8.4 (L) 8.5 - 10.3 mg/dL Bilirubin, total 0.5 0.1 - 1.2 mg/dL Protein, pl 6.3 (L) 6.5 - 8.5 g/dL Albumin 2.8 (L) 3.5 - 5.0 g/dL Alk phos 70 40 - 130 Units/L ALT 32 7 - 45 Units/L AST 34 10 - 45 Units/L CBC with auto differential Collection Time: 04/18/21 7:39 AM Result Value Ref Range WBC 9.2 3.8 - 9.9 K/cumm Hgb 11.5 (L) 11.9 - 15.5 g/dL Hct 37.0 35.6 - 45.5 % Plt 205 150 - 400 K/cumm MPV 12.2 9.1 - 12.3 fL RBC 4.08 3.90 - 5.20 M/cumm MCV 90.7 81.3 - 96.4 fL MCH 28.2 27.1 - 33.3 pg MCHC 31.1 (L) 32.3 - 35.7 g/dL RDW CV 14.7 11.1 - 14.9 % RDW SD 49.1 (H) 35.7 - 48.1 fL NRBC abs 0.00 0.00 - 0.01 K/cumm Differential, auto Collection Time: 04/18/21 7:39 AM Result Value Ref Range Neutrophil abs 7.8 (H) 1.7 - 6.5 K/cumm Imm gran abs 0.1 0.0 - 0.1 K/cumm Lymphocyte abs 0.8 0.8 - 3.3 K/cumm Monocyte abs 0.5 0.2 - 0.8 K/cumm Eosinophil abs 0.1 0.0 - 0.5 K/cumm Basophil abs 0.0 0.0 - 0.1 K/cumm Neutrophil pct 84.5 % Imm gran pct 0.7 % Lymphocyte pct 8.4 % Monocyte pct 5.2 % Eosinophil pct 1.2 % Basophil pct 0.0 % eGFR Collection Time: 04/18/21 7:39 AM Result Value Ref Range eGFR 113 mL/min/1.73 m2 Assessment: Principal Problem: Pneumonia due to COVID-19 virus Active Problems: Hyperlipidemia Hypothyroidism Acute respiratory failure with hypoxia (CMS/HCC) (HCC) Elevated AST (SGOT) Dehydration Plan: Patient is a 46-year-old female with history of thyroid disease, and obesity. Patient presented to the emergency room on April 14, 2021 with worsening of shortness of breath, and fatigue. Patient was admitted through the emergency room on April 14, [address] Barriga, patient was seen H and P was done by our nurse practitioner Ms. Guzman on April 14, 2021, then patient was followed with Dr. Oates on April 15. I Dr. Joy started to follow patient on April 16, 2021. Patient followed with pulmonary consult. Acute hypoxic respiratory failure: Presented on the admission secondary to COVID-19 pneumonia. Patient required to be on high dose of oxygen nasal cannula, needed to be transferred to [facility]. Patient has been on Opti Flow/BiPAP overnight. Trying to taper down if able to tolerate. Continue with Decadron 6 mg IV daily to finish 10 days of treatment, Remdesivir daily to finish 5 days of treatment, and Baricitinib 4 mg oral daily was started on April 15, 2021 for 14 days treatment. Followed with pulmonary consult. - CT chest PE CTA with contrast done on April 14, 2021 IMPRESSION: NO ACUTE OR CHRONIC PULMONARY EMBOLISM. EXTENSIVE BILATERAL INFILTRATES CONSISTENT WITH COVID 19 APPEARANCE. Stat report by [facility] Electronically signed by: Silviano Whitehead M.D. Possible upper respiratory infection: Continue with the Unasyn V potassium 500 mg 1 tablet twice a day. Diabetes mellitus type 2: Patient reported that she did have gestational diabetes but never continued with her diabetes as she reported. Hemoglobin A1c done on April 17, 2021 was 7.1. Informed the patient regarding her diabetes and the need for treatment specially now she is gettingIV steroid/Decadron causing her hyperglycemia. Started with regimen of insulin Lantus/lispro with meals/insulin sliding scale. Hypothyroidism: Continue with levothyroxine 75 mcg 1 tablet daily. Preventions: Continue with Lovenox 40 mg subcu twice a day for DVT prophylaxis. Keep patient on Protonix 40 mg 1 tab daily. Informed the patient in details regarding the findings we have regarding her care, patient is awareabout her problems. Patient followed with pulmonary consult. Reviewed blood workup from earlier this morning. Encouraged patient to use her incentive spirometry. Continue with current med treatment and monitoring. Anticipated discharge: 5-6 Days. Narayan Joy MD Hospitalist 04/18/2021 10:08 AM * Patricia Esquivel, RESIDENTIAL SERVICE TECHNICIAN - 04/18/2021 3:44 AM CDT Pt requiring 100% NPPV at this time. She is anxious / tachypneic with respirations 30 bpm. Saturations fluctuating from mid 80's to low 90's. RN encouraged / assisted her to self prone. Will continueto monitor. * Johnny Salgado MD - 04/17/2021 3:41 PM CDT Pulmonary Daily Progress Chief complaint/reason for consult: Covid 19. Interval History: Oxygenation worse, on optiflow 100%/55L, sats 90-92 Afebrile Breathing feels fairly comf Some cough/congestion Normal wbc Presenting History: 46 yo woman w hypothyroidism and BMI 44 admitted 04/14 after presenting to the ED with shortness of breath. Sx present about a week. Started w cough. No chest pain. COVID positive. also hospitalized w COVID. No pre-existing lung disease. CT chest with diffuse patchy gg infiltrates consistent w COVID. Steroids began 04/14 Remdesivir started 04/14 Strep screen + on 04/08/21 Covid 19 + pcr 04/08/21 Allergies: No Known Allergies Medications: Scheduled Meds:baricitinib, 4 mg, oral, Daily cetirizine, 10 mg, oral, Daily dexAMETHasone, 6 mg, intravenous, Q24H DEMETRIA enoxaparin, 40 mg, subcutaneous, Q12H DEMETRIA insulin lispro, 0-4 Units, subcutaneous, Nightly insulin lispro, 0-5 Units, subcutaneous, TID with meals levothyroxine, 75 mcg, oral, Daily - [address], 40 mg, oral, Daily penicillin v potassium, 500 mg, oral, BID remdesivir, 100 mg, intravenous, Q24H Continuous Infusions: PRN Meds:.benzocaine-menthoL ??? dextrose OR dextrose ??? glucagon ??? hydrOXYzine ??? ondansetron ODT OR ondansetron ??? traZODone CHRISTEN Above review of system reviewed on 04/17/2021 Vitals: Vitals: 04/17/21 1033 04/17/21 1100 04/17/21 1200 04/17/21 1445 BP: 111/71 123/83 BP Location: Left arm Patient Position: Lying Pulse: 86 78 Resp: 29 18 Temp: 36 ??C (96.8 ??F) TempSrc: SpO2: 91% 92% 90% Weight: Height: Temp (24hrs), Av.8 ??C (98.2 ??F), Min:36 ??C (96.8 ??F), Max:37.4 ??C (99.3 ??F) FiO2 (%): [90 %-100 %] 100 % Intake/Output Summary (Last 24 hours) at 04/17/2021 1541 Last data filed at 04/17/2021 1200 Gross per 24 hour Intake -- Output 1000 ml Net -1000 ml Physical Exam Vitals and nursing note reviewed. Constitutional: Appearance: She is obese. HENT: Head: Normocephalic and atraumatic. Right Ear: External ear normal. Left Ear: External ear normal. Nose: Nose normal. Cardiovascular: Rate and Rhythm: Normal rate and regular rhythm. Pulmonary: Effort: No respiratory distress. Breath sounds: No wheezing, rhonchi or rales. Abdominal: General: Abdomen is flat. Palpations: Abdomen is soft. Musculoskeletal: General: Normal range of motion. Right lower leg: No edema. Left lower leg: No edema. Skin: General: Skin is warm and dry. Neurological: Mental Status: She is alert. Psychiatric: Behavior: Behavior normal. Lab/Radiology/Diagnostic Review: Labs: Recent Labs Lab Units 04/17/21 0431 04/16/21 1208 04/14/21 0147 WBC K/cumm 9.5 9.1 6.5 HEMOGLOBIN g/dL 11.5* 12.0 13.1 HEMATOCRIT % 36.5 38.2 39.9 PLATELETS K/cumm 203 192 131* NEUTROS PCT % 88.9 89.5 85.2 LYMPHS PCT % 6.3 5.3 8.2 MONOS PCT % 4.4 4.8 6.0 EOS PCT % 0.1 0.0 0.0 Recent Labs Lab Units 04/17/21 1112 04/17/21 0431 04/16/21 0835 04/15/21 2307 04/14/21 0147 SODIUM mmol/L -- 141 143 -- 136 POTASSIUM PLASMA mmol/L -- 3.5 3.3 -- 3.4 CHLORIDE mmol/L -- 102 104 -- 95* CO2 mmol/L -- 29 29 -- 26 ANIONGAP mmol/L -- 10 10 -- 15 GLUCOSE mg/dL -- 172 171 -- 181 POC GLUCOSE MONITOR mg/dL 224* -- -- < > -- BUN SERUM mg/dL -- 12 12 -- 11 CREATININE mg/dL -- 0.47* 0.49* -- 0.64 CALCIUM mg/dL -- 8.3* 8.4* -- 8.6 ALBUMIN g/dL -- 2.9* 3.2* -- 3.8 ALK PHOS Units/L -- 76 71 -- 74 ALT Units/L -- 39 37 -- 37 AST Units/L -- 52* 42 -- 52* BILIRUBIN TOTAL mg/dL -- 0.5 0.4 -- 0.5 < > = values in this interval not displayed. Recent Labs Lab Units 04/16/21 0835 04/15/21 1117 04/14/21 0147 D DIMER ng/mL FEU 879* -- 662* CRP mg/L 77.6* 75.4* -- Imaging: CXR 04/14 bilateral patchy ground-glass infiltrate left greater than right Other diagnostic tests: I have personally reviewed above laboratory findings, chest imaging, and diagnostic tests 04/17/2021 Assessment and Plan: COVID 19, dx 04/14, symptom onset approx 04/08/21 positive test on 04/08/2021 Acute respiratory failure Hypothyroidism BMI 44 ?? Recs: O2 as required DVT prophylaxis Dexamethasone times 10 days remdesivir x5 days baricitinib started 04/15 Monitor d dimer and renal/hepatic panels and CBC ?? * Narayan Joy MD - 04/17/2021 6:05 AM CDT Hospitalist Progress Note Noris Bob MD Shaina Huynh is a 46 y.o. female with chief complaint of: Fatigue, and shortness of breath presented on the admission. Overnight Events: Patient was placed on BiPAP overnight, earlier today back to OptiFlow 60 L-100% saturating 93-96%. Subjective: Patient was feeling little better earlier today, was able to keep her BiPAP overnight. And she is trying to use her incentive spirometry on regular basis. Objective: Vitals: Temp Min: 36.4 ??C (97.5 ??F) Max: 37.4 ??C (99.3 ??F) Pulse Min: 63 Max: 88 BP Min: 100/60 Max: 145/129 Resp Min: 8 Max: 43 SpO2 Min: 85 % Max: 97 % Most Recent : Vitals: 04/17/21 0300 04/17/21 0400 04/17/21 0500 04/17/21 0600 BP: 132/71 100/60 118/68 126/65 Pulse: 68 64 74 69 Resp: 25 26 8 (!) 42 Temp: 36.7 ??C (98 ??F) TempSrc: Oral SpO2: 96% 97% 92% 94% Weight: Height: Intake/Output Summary (Last 24 hours) at 04/17/2021 0827 Last data filed at 04/16/2021 1426 Gross per 24 hour Intake 240 ml Output 500 ml Net -260 ml Physical exam: Gen: Patient is a 46-year-old female comfortable with her OptiFlow in [facility] HEENT: No conjunctival pallor Neck: Supple, no palpable LN, no JVD Resp: Poor effort, poor air entry bilateral. CV: S1, S2, RRR GI: Obese, +BS, Soft, no abdominal tenderness. MSK: No lower extremity edema Skin: No rashes Neuro: Ao3, no gross defects Psych: Appropriate mood and affect Lab/Radiology/Diagnostic Review: Reviewed. Recent Results (from the past 24 hour(s)) CRP (acute phase) Collection Time: 04/16/21 8:35 AM Result Value Ref Range CRP 77.6 (H) <=10.0 mg/L Comprehensive metabolic panel Collection Time: 04/16/21 8:35 AM Result Value Ref Range Sodium 143 135 - 145 mmol/L Potassium, pl 3.3 3.3 - 4.9 mmol/L Chloride 104 97 - 110 mmol/L CO2 29 22 - 32 mmol/L Anion gap 10 2 - 15 mmol/L BUN 12 8 - 25 mg/dL Creatinine 0.49 (L) 0.60 - 1.10 mg/dL Glucose 171 70 - 199 mg/dL Calcium 8.4 (L) 8.5 - 10.3 mg/dL Bilirubin, total 0.4 0.1 - 1.2 mg/dL Protein, pl 6.5 6.5 - 8.5 g/dL Albumin 3.2 (L) 3.5 - 5.0 g/dL Alk phos 71 40 - 130 Units/L ALT 37 7 - 45 Units/L AST 42 10 - 45 Units/L D-dimer, quantitative Collection Time: 04/16/21 8:35 AM Result Value Ref Range D-Dimer 879 (H) <=499 ng/mL FEU eGFR Collection Time: 04/16/21 8:35 AM Result Value Ref Range eGFR 117 mL/min/1.73 m2 CBC with auto differential Collection Time: 04/16/21 12:08 PM Result Value Ref Range WBC 9.1 3.8 - 9.9 K/cumm Hgb 12.0 11.9 - 15.5 g/dL Hct 38.2 35.6 - 45.5 % Plt 192 150 - 400 K/cumm MPV 11.7 9.1 - 12.3 fL RBC 4.34 3.90 - 5.20 M/cumm MCV 88.0 81.3 - 96.4 fL MCH 27.6 27.1 - 33.3 pg MCHC 31.4 (L) 32.3 - 35.7 g/dL RDW CV 14.5 11.1 - 14.9 % RDW SD 47.2 35.7 - 48.1 fL NRBC abs 0.00 0.00 - 0.01 K/cumm Differential, auto Collection Time: 04/16/21 12:08 PM Result Value Ref Range Neutrophil abs 8.1 (H) 1.7 - 6.5 K/cumm Imm gran abs 0.0 0.0 - 0.1 K/cumm Lymphocyte abs 0.5 (L) 0.8 - 3.3 K/cumm Monocyte abs 0.4 0.2 - 0.8 K/cumm Eosinophil abs 0.0 0.0 - 0.5 K/cumm Basophil abs 0.0 0.0 - 0.1 K/cumm Neutrophil pct 89.5 % Imm gran pct 0.4 % Lymphocyte pct 5.3 % Monocyte pct 4.8 % Eosinophil pct 0.0 % Basophil pct 0.0 % Comprehensive metabolic panel Collection Time: 04/17/21 4:31 AM Result Value Ref Range Sodium 141 135 - 145 mmol/L Potassium, pl 3.5 3.3 - 4.9 mmol/L Chloride 102 97 - 110 mmol/L CO2 29 22 - 32 mmol/L Anion gap 10 2 - 15 mmol/L BUN 12 8 - 25 mg/dL Creatinine 0.47 (L) 0.60 - 1.10 mg/dL Glucose 172 70 - 199 mg/dL Calcium 8.3 (L) 8.5 - 10.3 mg/dL Bilirubin, total 0.5 0.1 - 1.2 mg/dL Protein, pl 6.1 (L) 6.5 - 8.5 g/dL Albumin 2.9 (L) 3.5 - 5.0 g/dL Alk phos 76 40 - 130 Units/L ALT 39 7 - 45 Units/L AST 52 (H) 10 - 45 Units/L CBC with auto differential Collection Time: 04/17/21 4:31 AM Result Value Ref Range WBC 9.5 3.8 - 9.9 K/cumm Hgb 11.5 (L) 11.9 - 15.5 g/dL Hct 36.5 35.6 - 45.5 % Plt 203 150 - 400 K/cumm MPV 12.1 9.1 - 12.3 fL RBC 4.13 3.90 - 5.20 M/cumm MCV 88.4 81.3 - 96.4 fL MCH 27.8 27.1 - 33.3 pg MCHC 31.5 (L) 32.3 - 35.7 g/dL RDW CV 14.6 11.1 - 14.9 % RDW SD 47.7 35.7 - 48.1 fL NRBC abs 0.00 0.00 - 0.01 K/cumm Differential, auto Collection Time: 04/17/21 4:31 AM Result Value Ref Range Neutrophil abs 8.5 (H) 1.7 - 6.5 K/cumm Imm gran abs 0.0 0.0 - 0.1 K/cumm Lymphocyte abs 0.6 (L) 0.8 - 3.3 K/cumm Monocyte abs 0.4 0.2 - 0.8 K/cumm Eosinophil abs 0.0 0.0 - 0.5 K/cumm Basophil abs 0.0 0.0 - 0.1 K/cumm Neutrophil pct 88.9 % Imm gran pct 0.3 % Lymphocyte pct 6.3 % Monocyte pct 4.4 % Eosinophil pct 0.1 % Basophil pct 0.0 % eGFR Collection Time: 04/17/21 4:31 AM Result Value Ref Range eGFR 118 mL/min/1.73 m2 Assessment: Principal Problem: Pneumonia due to COVID-19 virus Active Problems: Hyperlipidemia Hypothyroidism Acute respiratory failure with hypoxia (CMS/HCC) (HCC) Elevated AST (SGOT) Dehydration Plan: Patient is a 46-year-old female with history of thyroid disease, and obesity. Patient presented to the emergency room on April 14, 2021 with worsening of shortness of breath, and fatigue. Patient was admitted through the emergency room on April 14, [address] Barriga, patient was seen H and P was done by our nurse practitioner Ms. Guzman on April 14, 2021, then patient was followed with Dr. Oates on April 15. I Dr. Joy started to follow patient on April 16, 2021. Patient followed with pulmonary consult. Acute hypoxic respiratory failure: Presented on the admission secondary to COVID-19 pneumonia. Patient required to be on high dose of oxygen nasal cannula, needed to be transferred to [facility]. Patient has been on Opti Flow/BiPAP overnight. Trying to taper down if able to tolerate. Continue with Decadron 6 mg IV daily to finish 10 days of treatment, Remdesivir daily to finish 5 days of treatment, and Baricitinib 4 mg oral daily for 14 days treatment. Followed with pulmonary consult. - CT chest PE CTA with contrast done on April 14, 2021 IMPRESSION: NO ACUTE OR CHRONIC PULMONARY EMBOLISM. EXTENSIVE BILATERAL INFILTRATES CONSISTENT WITH COVID 19 APPEARANCE. Stat report by [facility] Electronically signed by: Silviano Hargan, M.D. Possible upper respiratory infection: Continue with the Unasyn V potassium 500 mg 1 tablet twice a day. Hyperglycemia: Possibly secondary to IV steroid/Decadron. Requested to have hemoglobin A1c to be checked. Keep patient on insulin sliding scale and monitor blood sugar closely. Hypothyroidism: Continue with levothyroxine 75 mcg 1 tablet daily. Preventions: Ox 40 mg subcu twice a day for DVT prophylaxis. Keep patient on Protonix 40 mg 1 tab daily. Informed the patient in details regarding the findings we have regarding her care, patient is awareabout her problems. Patient followed with pulmonary consult. Reviewed blood workup from earlier this morning. Encouraged patient to use her incentive spirometry. Continue with current med treatment and monitoring. Anticipated discharge: 5-6 Days. Narayan Joy MD Hospitalist 04/17/2021 8:27 AM * Patricia Esquivel RRT - 04/17/2021 12:12 AM CDT Mrs. Huynh had been on optiflow 100% / /60 liters with NRB saturations 87%. Bipap placed 16/8 90%. Saturations improved to 96%. She appears to be tolerating well. Will continue to monitor / wean fi02. * Ksenia Paul RN - 04/16/2021 1:51 PM CDT CM Initial Assessment Interview Note Information Obtained From: Spouse Name: Jono Huynh (Spouse) [phone] , patient designated child caregiver private home (04/16/21 7081) Admission Source: from home with spouse and 5 y/o child Impression: patient came in through ER for complaints of SOB Plan Includes: on optiflow and receiving steroids and remdesivir Primary Source of Transportation: Does the patient need discharge transport arranged?: No (04/14/21 1200) Health Insurance Coverage: [employer] Prescription Coverage: yes Pharmacy: [id number] Primary Care Provider: Noris Bob MD Prior to Admission: Primary Caregiver: Self Support System: Spouse/Significant Other Support system contact info (name, phone, availablity): Jono Huynh (Spouse) [phone] (H) Home Care Services: No Durable Medical Equipment: None Living Arrangements: Spouse/significant other, Children (spouse is in hospital for Covid complications, child who is 5 y/o is being taken care of by relatives, no concerns at this time) Type of Residence: Private residence (04/16/211347) Potential discharge needs include: not able to determine at this time Dialysis: none Behavioral Health Services: Behavioral Health Services: No (04/16/211347) Patient expects to be Discharged to: Private residence, (04/16/211347) Additional Information: none Patient's Identified Problem/Goal Problem: Ensure acute medical needs are met and that patient has a safe discharge plan. Goal: Secure a discharge plan that patient/family are agreeable with and ensure patient has continuum of care. Case management will follow for discharge planning and send referrals as needed. Goals include: To assure continuity of care, To maximize coping skills, To assure patient is in a safe environment and To assure access to community resources. Plan includes: 1. Collaboration with patient, MD, direct care nurse, Reaming Press Operator, Nurse Coordinator and other members of the health care team to assure needed interventions completed. 2. Return patient to optimal level of self-care post discharge. 3. Theatre Instructor will follow for Discharge Planning - interventions as needed 4. Anticipated level of care at discharge 5. Planned Discharge Disposition Ksenia Paul RN BSN Theatre Instructor [phone] * Javon Kauffman MD - 04/16/2021 10:36 AM CDT Pulmonary Daily Progress Chief complaint/reason for consult: Covid 19. Interval History: Oxygenation worse, on optiflow 100%/60L, sats mid/low on this Afebrile Breathing feels fairly comf Some cough/congestion Presenting History: 46 yo woman w hypothyroidism and BMI 44 admitted 04/14 after presenting to the ED with shortness of breath. Sx present about a week. Started w cough. No chest pain. COVID positive. also hospitalized w COVID. No pre-existing lung disease. CT chest with diffuse patchy gg infiltrates consistent w COVID. Steroids began 04/14 Remdesivir started 04/14 Strep screen + on 04/08/21 Covid 19 + pcr 04/08/21 Allergies: No Known Allergies Medications: Scheduled Meds:baricitinib, 4 mg, oral, Daily dexAMETHasone, 6 mg, intravenous, Q24H DEMETRIA enoxaparin, 40 mg, subcutaneous, Q12H DEMETRIA levothyroxine, 75 mcg, oral, Daily - [address], 40 mg, oral, Daily penicillin v potassium, 500 mg, oral, BID remdesivir, 100 mg, intravenous, Q24H Continuous Infusions:sodium chloride 0.9%, 100 mL/hr, Last Rate: 100 mL/hr (04/15/21 1325) PRN Meds:.benzocaine-menthoL ??? ondansetron ODT OR ondansetron ROS Above review of system reviewed on 04/16/2021 Vitals: Vitals: 04/16/21 0400 04/16/21 0500 04/16/21 0600 04/16/21 0700 BP: 160/98 (!) 191/96 140/77 149/90 Pulse: 73 81 72 73 Resp: 28 21 (!) 35 (!) 32 Temp: TempSrc: SpO2: (!) 88% (!) 88% 93% 95% Weight: Height: Temp (24hrs), Av.7 ??C (98 ??F), Min:36.4 ??C (97.6 ??F), Max:37.1 ??C (98.7 ??F) FiO2 (%): [100 %] 100 % Intake/Output Summary (Last 24 hours) at 04/16/2021 1036 Last data filed at 04/16/2021 0830 Gross per 24 hour Intake 440 ml Output 500 ml Net -60 ml Physical Exam Vitals and nursing note reviewed. Constitutional: Appearance: She is obese. HENT: Head: Normocephalic and atraumatic. Right Ear: External ear normal. Left Ear: External ear normal. Nose: Nose normal. Cardiovascular: Rate and Rhythm: Normal rate and regular rhythm. Pulmonary: Effort: No respiratory distress. Breath sounds: No wheezing, rhonchi or rales. Abdominal: General: Abdomen is flat. Palpations: Abdomen is soft. Musculoskeletal: General: Normal range of motion. Right lower leg: No edema. Left lower leg: No edema. Skin: General: Skin is warm and dry. Neurological: Mental Status: She is alert. Psychiatric: Behavior: Behavior normal. Lab/Radiology/Diagnostic Review: Labs: Recent Labs Lab Units 04/14/21 0147 WBC K/cumm 6.5 HEMOGLOBIN g/dL 13.1 HEMATOCRIT % 39.9 PLATELETS K/cumm 131* NEUTROS PCT % 85.2 LYMPHS PCT % 8.2 MONOS PCT % 6.0 EOS PCT % 0.0 Recent Labs Lab Units 04/16/21 0835 04/15/21 2307 04/14/21 0147 SODIUM mmol/L 143 -- 136 POTASSIUM PLASMA mmol/L 3.3 -- 3.4 CHLORIDE mmol/L 104 -- 95* CO2 mmol/L 29 -- 26 ANIONGAP mmol/L 10 -- 15 GLUCOSE mg/dL 171 -- 181 POC GLUCOSE MONITOR mg/dL -- 135 -- BUN SERUM mg/dL 12 -- 11 CREATININE mg/dL 0.49* -- 0.64 CALCIUM mg/dL 8.4* -- 8.6 ALBUMIN g/dL 3.2* -- 3.8 ALK PHOS Units/L 71 -- 74 ALT Units/L 37 -- 37 AST Units/L 42 -- 52* BILIRUBIN TOTAL mg/dL 0.4 -- 0.5 Recent Labs Lab Units 04/16/21 0835 04/15/21 1117 04/14/21 0147 D DIMER ng/mL FEU 879* -- 662* CRP mg/L 77.6* 75.4* -- Imaging: CXR 04/14 bilateral patchy ground-glass infiltrate left greater than right Other diagnostic tests: I have personally reviewed above laboratory findings, chest imaging, and diagnostic tests 04/16/2021 Assessment and Plan: COVID 19, dx 04/14, symptom onset approx 04/08/21 positive test on 04/08/2021 Acute respiratory failure Hypothyroidism BMI 44 ?? Recs: O2 as required DVT prophylaxis Dexamethasone times 10 days remdesivir x5 days baricitinib started 04/15 Monitor d dimer and renal/hepatic panels and CBC ?? * Narayan Joy MD - 04/16/2021 6:13 AM CDT Hospitalist Progress Note Noris Bob MD Shaina Huynh is a 46 y.o. female with chief complaint of: Fatigue, and shortness of breath presented on the admission. Overnight Events: Patient has been on Opti Flow with high requirement of oxygen, reported desaturating with movement overnight in the [facility]. Subjective: Patient still feeling tired, was trying to use her incentive spirometry. Objective: Vitals: Temp Min: 36.4 ??C (97.6 ??F) Max: 37.1 ??C (98.7 ??F) Pulse Min: 70 Max: 81 BP Min: 114/68 Max: 191/96 Resp Min: 18 Max: 38 SpO2 Min: 88 % Max: 95 % Most Recent : Vitals: 04/16/21 0400 04/16/21 0500 04/16/21 0600 04/16/21 0700 BP: 160/98 (!) 191/96 140/77 149/90 Pulse: 73 81 72 73 Resp: 28 21 (!) 35 (!) 32 Temp: TempSrc: SpO2: (!) 88% (!) 88% 93% 95% Weight: Height: Intake/Output Summary (Last 24 hours) at 04/16/2021 0931 Last data filed at 04/15/2021 1650 Gross per 24 hour Intake 200 ml Output -- Net 200 ml Physical exam: Gen: Patient is a 46-year-old female still in some respiratory distress on Opti Flow in the [facility] HEENT: No conjunctival pallor Neck: Supple, no palpable LN, no JVD Resp: Poor effort, poor air entry bilateral. CV: S1, S2, RRR GI: Obese, +BS, Soft, no abdominal tenderness. MSK: No lower extremity edema Skin: No rashes Neuro: Ao3, no gross defects Psych: Appropriate mood and affect Lab/Radiology/Diagnostic Review: Reviewed. Recent Results (from the past 24 hour(s)) CRP (acute phase) Collection Time: 04/15/21 11:17 AM Result Value Ref Range CRP 75.4 (H) <=10.0 mg/L POCT glucose Collection Time: 04/15/21 11:07 PM Result Value Ref Range Glucose, POC 135 70 - 199 mg/dL CRP (acute phase) Collection Time: 04/16/21 8:35 AM Result Value Ref Range CRP 77.6 (H) <=10.0 mg/L Comprehensive metabolic panel Collection Time: 04/16/21 8:35 AM Result Value Ref Range Sodium 143 135 - 145 mmol/L Potassium, pl 3.3 3.3 - 4.9 mmol/L Chloride 104 97 - 110 mmol/L CO2 29 22 - 32 mmol/L Anion gap 10 2 - 15 mmol/L BUN 12 8 - 25 mg/dL Creatinine 0.49 (L) 0.60 - 1.10 mg/dL Glucose 171 70 - 199 mg/dL Calcium 8.4 (L) 8.5 - 10.3 mg/dL Bilirubin, total 0.4 0.1 - 1.2 mg/dL Protein, pl 6.5 6.5 - 8.5 g/dL Albumin 3.2 (L) 3.5 - 5.0 g/dL Alk phos 71 40 - 130 Units/L ALT 37 7 - 45 Units/L AST 42 10 - 45 Units/L D-dimer, quantitative Collection Time: 04/16/21 8:35 AM Result Value Ref Range D-Dimer 879 (H) <=499 ng/mL FEU eGFR Collection Time: 04/16/21 8:35 AM Result Value Ref Range eGFR 117 mL/min/1.73 m2 Assessment: Principal Problem: Pneumonia due to COVID-19 virus Active Problems: Hyperlipidemia Hypothyroidism Acute respiratory failure with hypoxia (CMS/HCC) (HCC) Elevated AST (SGOT) Dehydration Plan: Patient is a 46-year-old female with history of thyroid disease, and obesity. Patient presented to the emergency room on April 14, 2021 with worsening of shortness of breath, and fatigue. Patient was admitted through the emergency room on April 14, [address] Barriga, patient was seen H and P was done by our nurse practitioner Ms. Guzman on April 14, 2021, then patient was followed with Dr. Oates on April 15. I Dr. Joy started to follow patient on April 16, 2021. Acute hypoxic respiratory failure: Presented on the admission secondary to COVID-19 pneumonia. Patient required to be on high dose of oxygen nasal cannula, needed to be transferred to [facility]. Patient has been on Opti Flow. Trying to taper down if able to tolerate. Continue with Decadron 6 mg IV daily to finish 10 days of treatment, Remdesivir daily to finish 5 days of treatment, and Baricitinib 4 mg oral daily for 14 days treatment. Followed with pulmonary consult. - CT chest PE CTA with contrast done on April 14, 2021 IMPRESSION: NO ACUTE OR CHRONIC PULMONARY EMBOLISM. EXTENSIVE BILATERAL INFILTRATES CONSISTENT WITH COVID 19 APPEARANCE. Stat report by [facility] Electronically signed by: Silviano Whitehead M.D. Possible upper respiratory infection: Continue with the Unasyn V potassium 500 mg 1 tablet twice a day. Hypothyroidism: Continue with levothyroxine 75 mcg 1 tablet daily. Preventions: Ox 40 mg subcu twice a day for DVT prophylaxis. Keep patient on Protonix 40 mg 1 tab daily. Informed the patient in details regarding the findings we have regarding her care, patient is awareabout her problems. Patient followed with pulmonary consult. Reviewed blood workup from earlier this morning. Encourage patient to use her incentive spirometry. Continue with current med treatment and monitoring. Anticipated discharge: 5-6 Days. Narayan Joy MD Hospitalist 04/16/2021 9:31 AM * Cassidy Keys, NICHOLAS - 04/16/2021 12:31 AM CDT Patient was a rapid response due to declining spo2. Patient was on 15 liter high flow and 15 liter non re breather. Patient was transferred to [facility] to start opti flow. BP 134/87 (BP Location: Left arm) Pulse 73 Temp 36.4 ??C (97.6 ??F) (Oral) Resp 28 Ht 172.7cm (5' 8 ) Wt 131.5 kg (290 lb) SpO2 93% BMI 44.09 kg/m?? * Valentina Oates MD - 04/15/2021 2:13 PM CDT HOSPITALIST PROGRESS NOTE PCP: Noris Bob [phone] Admit Date: 04/14/2021 12:49 AM LOS: 1 CHIEF COMPLAINT/ BRIEF HOSPITAL COURSE COVID-19 This is a 46-year-old white female was admitted secondary to COVID-19 and strep pharyngitis. Patient was hypoxic emergency department was admitted. She was started on Decadron, remdesivir. Patient was on 11 L of high-flow oxygen via nasal cannula on admission INTERVAL HISTORY Patient appears to still be struggling a little today. She still requiring quite a bit of oxygen. She has had a discussion with pulmonology and is going to start Baricitinib REVIEW OF SYSTEMS Constitutional: Positive for fever, fatigue, sore throat HENT: Negative for congestion, ear pain and sinus pain. Positive for sore throat Eyes: Negative for blurred vision and pain. Respiratory: Positive for cough and shortness of breath Cardiovascular: Negative for chest pain, palpitations, orthopnea and leg swelling. Gastrointestinal: Negative for abdominal pain, constipation, diarrhea, heartburn, nausea and vomiting. Genitourinary: Negative for flank pain and urgency. Musculoskeletal: Negative for back pain, myalgias and neck pain. Skin: Negative for itching and rash. Neurological: Negative for dizziness, speech change and weakness. Psychiatric/Behavioral: Negative for depression and suicidal ideas. The patient is not nervous/anxious and does not have insomnia. DATA Vitals: 04/15/21 0350 04/15/21 0433 04/15/21 0800 04/15/21 0825 BP: 125/66 97/52 BP Location: Left arm Left arm Patient Position: Lying Lying Pulse: 76 72 77 Resp: Temp: 36.6 ??C (97.8 ??F) 37.2 ??C (98.9 ??F) TempSrc: Oral Oral SpO2: 95% 93% 92% 92% Weight: Height: No intake/output data recorded. I/O this shift: In: 120 [P.O.:120] Out: - LDA: Peripheral IV 04/15/21 22 G Left Wrist (Active) Placement Date/Time: 04/15/21 1126 Size (Gauge): 22 G Location Orientation: Left Location: Wrist Number of days: 0 24hr Min/Max: Temp Min: 36.6 ??C (97.8 ??F) Max: 37.2 ??C (98.9 ??F) Pulse Min: 72 Max: 80 BP Min: 97/52 Max: 129/68 Resp Min: 18 Max: 28 SpO2 Min: 88 % Max: 95 % CURRENT LAB RESULTS Recent Results (from the past 12 hour(s)) CRP (acute phase) Collection Time: 04/15/21 11:17 AM Result Value Ref Range CRP 75.4 (H) <=10.0 mg/L LABS/ TRENDS CBC: Lab Results Component Value Date WBC 6.5 04/14/2021 HGB 13.1 04/14/2021 HCT 39.9 04/14/2021 BMP: Lab Results Component Value Date SODIUM 136 04/14/2021 POTASSIUM 3.4 04/14/2021 CHLORIDE 95 (L) 04/14/2021 CREATININE 0.64 04/14/2021 CALCIUM 8.6 04/14/2021 No results found for: BNP Lab Results Component Value Date ALKPHOS 74 04/14/2021 Lab Results Component Value Date MAGNESIUM 2.1 04/14/2021 Lab Results Component Value Date AST 52 (H) 04/14/2021 Lab Results Component Value Date ALT 37 04/14/2021 No results found for: PHOS RADIOLOGY Recent Results (from the past 24 hour(s)) Lactate Collection Time: 04/14/21 11:05 PM Result Value Ref Range Lactate 0.9 0.7 - 2.0 mmol/L CRP (acute phase) Collection Time: 04/15/21 11:17 AM Result Value Ref Range CRP 75.4 (H) <=10.0 mg/L ECG 12 lead Result Date: 04/14/2021 Narrative: Vent Rate: 95 bpm RR Interval: 628 msec ME Interval: 142 msec QRS Duration: 90 msec QT Interval: 324 msec QTC Interval: 377 msec P-R-T [place]: 20 - -9 - 3 degrees SINUS RHYTHM LOW QRS VOLTAGE IN PRECORDIAL LEADS [QRS DEFLECTION < 1.0 mV IN CHEST LEADS] BORDERLINE ECG Electronically Signed By: Valdemar Pittman MD, [facility] XR Chest 1 Vw Portable Result Date: 04/14/2021 Narrative: EXAMINATION: XR CHEST 1 VIEW HISTORY: The patient is a 46-year-old female who presents with shortness of breath. TECHNIQUE: AP portable view of the chest. FINDINGS: Allowing for the poor inspiration, there is ill-defined alveolar type infiltrates in the lower half of the left lung. The remainder of the lungs are clear. Cardiovascular structures unremarkable. Impression: Left lower lobe lung infiltrates. Electronically signed by: Darrian Monsalve M.D. CT Chest PE (CTA) W Contrast Result Date: 04/14/2021 Narrative: EXAMINATION: CTA chest PE protocol with contrast HISTORY: Cough and SOB ORDER DATE: 04/14/2021 4:20 AM TECHNIQUE: CT chest images were acquired using a chest angiographic protocol with 3-Dimaging optimized for PE is obtained [id number] mL of Optiray 350. 2D Coronal and sagittal reformats were obtained. MIP and/or 3-D reconstructed images were created by the technologist. FINDINGS: Pulmonary arteries: No pulmonary embolus seen. RV/LV ratio: Less than 0.9 Lung parenchyma: Bilateral extensive groundglass infiltrates throughout both lungs Central airways: Normal. Mediastinum/Adenopathy: No evidence of mediastinal mass or adenopathy. Heart and great vessels: Normal. . No evidence of aortic aneurysm or dissection Other findings: None Upper abdomen: possible gallbladder sludge. Bones: Unremarkable. Impression: NO ACUTE OR CHRONIC PULMONARY EMBOLISM. EXTENSIVE BILATERAL INFILTRATES CONSISTENT WITHCOVID 19 APPEARANCE. Stat report by [facility] Electronically signed by: Silviano Whitehead M.D. PROCEDURES MEDICATIONS FOR CURRENT ENCOUNTER Scheduled Meds: baricitinib, 4 mg, oral, Daily dexAMETHasone, 6 mg, intravenous, Q24H DEMETRIA enoxaparin, 40 mg, subcutaneous, Q12H DEMETRIA levothyroxine, 75 mcg, oral, Daily - [address], 40 mg, oral, Daily penicillin v potassium, 500 mg, oral, BID remdesivir, 100 mg, intravenous, Q24H Continuous Infusions: sodium chloride 0.9%, 100 mL/hr, Last Rate: 100 mL/hr (04/15/21 1325) PRN Meds:. benzocaine-menthoL, 1 lozenge, 1 lozenge at 04/15/21 0624 ??? ondansetron ODT, 4 mg OR ondansetron, 4 mg, 4 mg at 10/19/21 1107 Diet: Dietary Orders (From admission, onward) Start Ordered 04/14/21 0955 Adult Diet Regular Diet effective now Question: (CH) Diet type Answer: Regular 04/14/21 0954 EXAM Vitals: 04/15/21 0825 BP: 97/52 Pulse: 77 Resp: 21 Temp: 37.2 ??C (98.9 ??F) SpO2: 92% Constitutional: Patient is oriented to person, place, and time. They appear well-developed. HENT: Head: Normocephalic and atraumatic. Nose: Nose normal. Mouth/Throat: Oropharynx is clear and moist. Eyes: Conjunctivae and EOM are normal. Pupils are equal, round, and reactive to light. Neck: Normal range of motion. Neck supple. No tracheal deviation present. No thyromegaly present. Cardiovascular: Normal rate, regular rhythm and normal heart sounds. Pulmonary/Chest: Effort normal and breath sounds distant No respiratory distress. No wheezes. No rales. Abdominal: Soft. Bowel sounds are normal. No distension. There is no tenderness. Musculoskeletal: Normal range of motion. They exhibit no edema, tenderness or deformity. Neurological: Patient is alert and oriented to person, place, and time. Patient displays normal reflexes. No cranial nerve deficit. Skin: Skin is warm and dry. No rash noted. Psychiatric: Normal mood and affect. Behavior is normal. ASSESSMENT AND PLAN All Diagnosis Present on Admission Unless Otherwise Stated: Principal Problem: Pneumonia due to COVID-19 virus Active Problems: Hyperlipidemia Hypothyroidism Acute respiratory failure with hypoxia (CMS/HCC) (HCC) Elevated AST (SGOT) Dehydration :} Acute respiratory failure: POA hypoxia secondary to COVID-19 pneumonia -continue nasal cannula 11 L- have a short leash for doing the patient to the [facility] and putting on Opti Flow -wean as tolerated -monitor closely -appears to be struggling so will add Baricitinib ?? :} Strep pharyngitis: POA diagnosed at clinic -continue antibiotic therapy -monitor closely -lozenges for sore throat ?? :} COVID-19 pneumonia: POA D-dimer 662 -CT chest for PE protocol negative -chest x-ray shows left lower lobe infiltrate -Remdesvir started 04/14 -decadron started 04/14 ?? :} Hypothyroidism: POA -levothyroxine ?? :} Morbid obesity: POA BMI 44.09 -counseled on diet Modifications -encourage exercise ?? :} GI prophylaxis -pantoprazole ?? :} DVT prophylaxis -Lovenox ?? Full Code Medical Decision Making Complexity: high Consulting physicians: Treatment Team: Consulting Physician: Johnny Salgado MD Disposition: Patient will likely be her several weeks Code status: Full Code Voice recognition software [employer] Direct was used dictate and transcribe this document. [employer] variances may occur. Despite proofreading, typographical errors may occur. Valentina Oates MD. HOSPITALIST 04/15/2021 2:13 PM * Jennie Esquivel RN - 04/15/2021 1:54 PM CDT VSS. Pt still on 15L High flow and has been sustaining around 90-91% For a short period pt was noted to be 98-100% (I have not witnessed this since pt arrival). Pt is on Remdesivir and IV dex. Pt hasbeen laying on her side most of the shift. Educated pt that it is ok to get up to the bedside commode/bedpan. Pt stated that she was under the assumption that she had to remain laying down at all time s, even while eating. Educated pt on the potential dangers of eating while laying down. Pt did voice understanding of the need to prone and laying on side as much as possible until oxygenation improves. Pt started on Olumiant. Pulmonary following. Will continue to monitor. * Johnny Salgado MD - 04/15/2021 9:13 AM CDT Pulmonary Daily Progress Chief complaint/reason for consult: Covid 19. Interval History: afebrile, normal wbc, minimal elevation of AST 15 L high flow 92% oxygen Denies headache or myalgia. No nausea vomiting or diarrhea. Oxygen flow rates have increased to 15 L. some shortness of breath. Oxygenation improved while on side or prone. Minimal cough and sputum production. Presenting History: 46 yo woman w hypothyroidism and BMI 44 admitted 04/14 after presenting to the ED with shortness of breath. Sx present about a week. Started w cough. No chest pain. COVID positive. also hospitalized w COVID. No pre-existing lung disease. CT chest with diffuse patchy gg infiltrates consistent w COVID. Steroids began 04/14 Remdesivir started 04/14 Strep screen + on 04/08/21 Covid 19 + pcr 04/08/21 Allergies: No Known Allergies Medications: Scheduled Meds:dexAMETHasone, 6 mg, intravenous, Q24H DEMETRIA enoxaparin, 40 mg, subcutaneous, Q12H DEMETRIA levothyroxine, 75 mcg, oral, Daily - [address], 40 mg, oral, Daily penicillin v potassium, 500 mg, oral, BID remdesivir, 100 mg, intravenous, Q24H Continuous Infusions:sodium chloride 0.9%, 100 mL/hr, Last Rate: 100 mL/hr (04/15/21 0356) PRN Meds:.??? benzocaine-menthoL ??? ondansetron ODT OR ondansetron ROS Above review of system reviewed on 04/15/2021 Vitals: Vitals: 04/15/21 0205 04/15/21 0350 04/15/21 0433 04/15/21 0800 BP: 103/53 125/66 BP Location: Left arm Left arm Patient Position: Lying Lying Pulse: 78 76 72 Resp: 18 19 Temp: 37 ??C (98.6 ??F) 36.6 ??C (97.8 ??F) TempSrc: Oral Oral SpO2: 94% 95% 93% 92% Weight: Height: Temp (24hrs), Av.8 ??C (98.3 ??F), Min:36.6 ??C (97.8 ??F), Max:37 ??C (98.6 ??F) No intake or output data in the 24 hours ending 04/15/21 0913 Physical Exam Vitals and nursing note reviewed. Constitutional: Appearance: She is obese. HENT: Head: Normocephalic and atraumatic. Right Ear: External ear normal. Left Ear: External ear normal. Nose: Nose normal. Mouth/Throat: Mouth: Mucous membranes are moist. Eyes: Extraocular Movements: Extraocular movements intact. Pupils: Pupils are equal, round, and reactive to light. Cardiovascular: Rate and Rhythm: Normal rate and regular rhythm. Pulmonary: Comments: Breath sounds distant. No audible wheezes. No signs of consolidation. Abdominal: General: Abdomen is flat. Palpations: Abdomen is soft. Musculoskeletal: General: Normal range of motion. Cervical back: Normal range of motion and neck supple. Right lower leg: No edema. Left lower leg: No edema. Skin: General: Skin is warm and dry. Neurological: General: No focal deficit present. Mental Status: She is alert and oriented to person, place, and time. Psychiatric: Mood and Affect: Mood normal. Behavior: Behavior normal. Lab/Radiology/Diagnostic Review: Labs: Recent Labs Lab Units 04/14/21 0147 WBC K/cumm 6.5 HEMOGLOBIN g/dL 13.1 HEMATOCRIT % 39.9 PLATELETS K/cumm 131* NEUTROS PCT % 85.2 LYMPHS PCT % 8.2 MONOS PCT % 6.0 EOS PCT % 0.0 Recent Labs Lab Units 04/14/21 0147 SODIUM mmol/L 136 POTASSIUM PLASMA mmol/L 3.4 CHLORIDE mmol/L 95* CO2 mmol/L 26 ANIONGAP mmol/L 15 GLUCOSE mg/dL 181 BUN SERUM mg/dL 11 CREATININE mg/dL 0.64 CALCIUM mg/dL 8.6 ALBUMIN g/dL 3.8 ALK PHOS Units/L 74 ALT Units/L 37 AST Units/L 52* BILIRUBIN TOTAL mg/dL 0.5 Recent Labs Lab Units 04/14/21 0147 D DIMER ng/mL FEU 662* Imaging: CXR 04/14 bilateral patchy ground-glass infiltrate left greater than right Other diagnostic tests: I have personally reviewed above laboratory findings, chest imaging, and diagnostic tests 04/15/2021 Assessment and Plan: COVID 19, dx 04/14, symptom onset approx 04/08/21 positive test on 04/08/2021 Acute respiratory failure Hypothyroidism BMI 44 ?? Recs: O2 as required DVT prophylaxis Dexamethasone times 10 days remdesivir x5 days Encourage incentive inspirometry Baricitinib discussed in detail with patient on mechanism of action, side affects and that is has been released under emergency declaration. Check baseline CRP and q an for 5 days to look at trend Monitor d dimer and renal/hepatic panels ?? * Dustin Blanca MD - 04/14/2021 10:38 PM CDT SUBJECTIVE: Worsening O2 requirement from 11L O2 to 15L. Patient SOB if not on her side. No fever or chest pain. Continue coughing. OBJECTIVE: General: ill, NAD HEENT: Sclera anicteric, NCAT Pulmonary: coarse, no rug Cardiovascular: RRR, no murmur Gastrointestinal : Soft, no masses Extremities: Warm, no edema ASSESSMENT/PLAN: 1. Acute hypoxic respiratory failure from room air to 15L due to COVID PNA: Continue decadron and remdesivir. Check lactate. Prone patient as needed. Telemetry I discussed starting Baricitinib with patient. She wants to think about it. Handout given. 2. Elevated AST: Follow 3. Dehydration: hydrate 32 minutes critical care time spent on seeing patient for acute and life- threatening respiratory failure * eJnnie Esquivel RN - 04/14/2021 12:47 PM CDT VSS upon admission except low oxygen reading. Per EMS, they had to increase her to 8L during the ride over. They placed pt on 6L on arrival. Pt found to be in the 80s when placed on continuous pulse ox. Pt had to be placed on 11L. Pt started on Remdesevir and steroids. Pulmonology consulted. No significant events to report this shift. Pt to return home when medically cleared for discharge. Will continue to monitor. 1314: Pt found to be destating again after talking with her cousin on the phone. Pt not able to tolerate speaking for short periods due to increased efforts to breathe. Pt had to be placed on 15L non-rebreather (currently trying to recover). Will continue to monitor. 1345: Pt still stating 90-91% on non-rebreather. Attempted to place pt back on high flow NC, pt immediately destated to low 80's without recovery. Pt had to be placed back on 15L Non-rebreather and currently back to 90%. Charge nurse and provider made aware. Pt to transfer off the unit. 1453: Pt placed back on 15L high flow NC. Pt stating 88-91%. Per pulmonology, pt ok to remain on 8th floor if stats do not drop below 88 and sustain. documented in this encounter H&P Notes * Bhavya Guzman NP - 04/14/2021 12:07 PM CDT History and Physical Date of Service: 04/14/2021 Primary Care Physician: Noris Bob MD [phone] SUBJECTIVE: Patient is a 46 y.o. female with a PMHx significant for thyroid disease. Presents to the ED with a chief complaint of . HPI: This is a patient presents to [facility] Emergency Department on 04/14/2021 with her as well who is also being admitted with both of them having COVID-19. According to the patient she states that both her and her and their 5-year-old child have been diagnosed with COVID-19 and strep pharyngitis. She states that she had been feeling slightly fatigued over the lastweek but then suddenly noticed that she developed shortness of breath upon exertion. She states that it is worse with inhalation and this also tends to hurt her chest. D-dimer elevated greater than 600 CT scan of chest for PE protocol negative. Patient is now requiring 11 L of oxygen high-flow nasal cannula and is satting approximately 94% on this. Patient denies dizziness nausea vomiting diarrhea tingling fevers chills. Past Medical History: Diagnosis Date ??? Thyroid disease Past Surgical History: Procedure Laterality Date ??? SECTION Medications Prior to Admission Medication Sig Dispense Refill Last Dose ??? penicillin v potassium (VEETID) 500 mg tablet Take 500 mg by mouth 2 (two) times a day 04/14/2021 at Unknown time ??? levothyroxine (SYNTHROID) 75 mcg tablet 04/13/2021 at Unknown time Current Facility-Administered Medications Medication Dose Route Frequency Provider Last Rate Last Admin ??? enoxaparin (LOVENOX) syringe 40 mg 40 mg subcutaneous Q12H Adrian Scales MD 40 mg at 04/14/21 1022 ??? [START ON 04/15/2021] levothyroxine (SYNTHROID) tablet 75 mcg 75 mcg oral Daily - 0600 Bhavya Guzman NP ??? methylPREDNISolone sodium succinate (SOLU-medrol) preservative free injection 40 mg 40 mg intravenous Q6H Adrian Scales MD 40 mg at 04/14/21 1134 ??? ondansetron ODT (ZOFRAN-ODT) disintegrating tablet 4 mg 4 mg oral Q6H PRN Adrian Harrison MD Or ??? ondansetron (ZOFRAN) injection 4 mg 4 mg intravenous Q6H PRN Adrian Harrison MD ??? penicillin v potassium (VEETID) tablet 500 mg 500 mg oral BID Adrian Harrison MD 500 mg at 04/14/21 1021 ??? [START ON 04/15/2021] remdesivir (VEKLURY) 100 mg in sodium chloride 0.9% 250 mL IVPB 100 mg intravenous Q24H Bhavya Guzman NP ??? remdesivir (VEKLURY) 200 mg in sodium chloride 0.9% 250 mL IVPB 200 mg intravenous Q24H Bhavya Guzman NP No Known Allergies Social History Tobacco Use ??? Smoking status: Not on file Substance Use Topics ??? Alcohol use: No Family History Problem Relation Age of Onset ??? Diabetes type II Father Diabetes mellitus type 2; Cause of : Diabetes mellitus type 2 ??? Hypertension Father Hypertension; Cause of : Hypertension ??? Other Maternal Grandfather Unknown; Cause of : Unknown ??? Other Paternal Grandmother Unknown; Cause of : Unknown ??? Other Paternal Grandfather Unknown; Cause of : Unknown ??? Other Mother Alive and well; ??? Other Brother Alive and well; ??? Other Sister Alive and well; Review of Systems: @@Review of Systems@@ Constitutional: Decreased appetite change, denies diaphoresis, fever and unexpected weight change. HENT: Denies ear pain, rhinorrhea, sore throat, tinnitus and trouble swallowing. Eyes: Denies pain, discharge and visual disturbance. Respiratory: Positive cough, chest tightness, shortness of breath and wheezing. Cardiovascular: Denies chest pain, palpitations and leg swelling. Gastrointestinal: Denies abdominal distention, abdominal pain, blood in stool, constipation, diarrhea, nausea and vomiting. Endocrine: Denies polydipsia, polyphagia and polyuria. Genitourinary: Denies dysuria, hematuria and urgency. Musculoskeletal:Denies back pain, gait problem and neck pain. Skin: Denies color change, rash and wound. Neurological: Denies dizziness, syncope, weakness, light-headedness and headaches. Hematological: Does not bruise/bleed easily. Psychiatric/Behavioral: Denies confusion and suicidal ideas. The patient is not nervous/anxious. OBJECTIVE: Vitals: Arrival Vitals [04/14/21 0032] Temp 37.3 ??C (99.2 ??F) Pulse 101 Resp 24 BP 141/69 SpO2 (!) 82 % Temp src Oral Heart Rate Source Patient Position BP Location FiO2 (%) Most Recent : Vitals: 04/14/21 1030 04/14/21 1045 04/14/21 1050 04/14/21 1150 BP: Pulse: 85 89 90 Resp: (!) 32 (!) 34 28 Temp: TempSrc: SpO2: 95% 93% 95% 91% Weight: Height: I/O last 2 completed shifts: In: 1000 [IV Piggyback:1000] Out: - No intake/output data recorded. Physical Exam: Physical Exam Physical Exam: Constitutional: oriented to person, place, and time. appears well-developed and well-nourished. HENT: Head: Atraumatic ,normocephalic Eyes: PERRLA, no drainage noted, EOM are normal ENT/Mouth: Mucus membranes moist, Pharynx without exudate /erythema, neck supple Cardiovascular: S1 S2 auscultated, Regular rate and rhythm Respiratory/Pulmonary/Chest: : Slight labored effort, Breath sounds diminished to auscultation bilaterally Gi: Abdomen -Soft , Nontender , nondistended, Bowel sounds present in all 4 quadrants. Gu: Groin region intact no swelling or discharge noted Musculoskeletal: ROM intact bilaterally exhibits no edema or deformity Skin:Warm- Dry , intact, No wounds noted Capillary refill takes less than 2 seconds. No rash noted.No erythema. Neurologic: CN 1-12 intact alert and oriented to person, place, and time. No sensory deficit. Psychiatric: No signs of depression , normal mood and affect Hematologic/Lymphatic/Immunologic: No bleeding noted Lab/Radiology/Diagnostic Review: Recent Results (from the past 24 hour(s)) Comprehensive metabolic panel Collection Time: 04/14/21 1:47 AM Result Value Ref Range Sodium 136 135 - 145 mmol/L Potassium, pl 3.4 3.3 - 4.9 mmol/L Chloride 95 (L) 97 - 110 mmol/L CO2 26 22 - 32 mmol/L Anion gap 15 2 - 15 mmol/L BUN 11 8 - 25 mg/dL Creatinine 0.64 0.60 - 1.10 mg/dL Glucose 181 70 - 199 mg/dL Calcium 8.6 8.5 - 10.3 mg/dL Bilirubin, total 0.5 0.1 - 1.2 mg/dL Protein, pl 7.6 6.5 - 8.5 g/dL Albumin 3.8 3.5 - 5.0 g/dL Alk phos 74 40 - 130 Units/L ALT 37 7 - 45 Units/L AST 52 (H) 10 - 45 Units/L CBC with auto differential Collection Time: 04/14/21 1:47 AM Result Value Ref Range WBC 6.5 3.8 - 9.9 K/cumm Hgb 13.1 11.9 - 15.5 g/dL Hct 39.9 35.6 - 45.5 % Plt 131 (L) 150 - 400 K/cumm MPV 11.9 9.1 - 12.3 fL RBC 4.62 3.90 - 5.20 M/cumm MCV 86.4 81.3 - 96.4 fL MCH 28.4 27.1 - 33.3 pg MCHC 32.8 32.3 - 35.7 g/dL RDW CV 14.5 11.1 - 14.9 % RDW SD 45.6 35.7 - 48.1 fL D-dimer, quantitative Collection Time: 04/14/21 1:47 AM Result Value Ref Range D-Dimer 662 (H) <=499 ng/mL FEU Pro B-type natriuretic peptide Collection Time: 04/14/21 1:47 AM Result Value Ref Range NT-proBNP 20 <=300 pg/mL Magnesium Collection Time: 04/14/21 1:47 AM Result Value Ref Range Magnesium 2.1 1.4 - 2.5 mg/dL Troponin T high-sensitivity series (baseline, 2hr, 4hr, 6hr) Collection Time: 04/14/21 1:47 AM Result Value Ref Range Trop T hs <6 <=14 ng/L Differential, auto Collection Time: 04/14/21 1:47 AM Result Value Ref Range Neutrophil abs 5.5 1.7 - 6.5 K/cumm Imm gran abs 0.0 0.0 - 0.1 K/cumm Lymphocyte abs 0.5 (L) 0.8 - 3.3 K/cumm Monocyte abs 0.4 0.2 - 0.8 K/cumm Eosinophil abs 0.0 0.0 - 0.5 K/cumm Basophil abs 0.0 0.0 - 0.1 K/cumm Neutrophil pct 85.2 % Imm gran pct 0.3 % Lymphocyte pct 8.2 % Monocyte pct 6.0 % Eosinophil pct 0.0 % Basophil pct 0.3 % eGFR Collection Time: 04/14/21 1:47 AM Result Value Ref Range eGFR 107 mL/min/1.73 m2 Troponin T high-sensitivity 2-hour Collection Time: 04/14/21 3:33 AM Result Value Ref Range Trop T hs <6 <=14 ng/L Trop T hs delta 0 ng/L Trop T hs interp Insignificant ECG 12 lead Result Date: 04/14/2021 Narrative: Vent Rate: 95 bpm RR Interval: 628 msec ME Interval: 142 msec QRS Duration: 90 msec QT Interval: 324 msec QTC Interval: 377 msec P-R-T [place]: 20 - -9 - 3 degrees SINUS RHYTHM LOW QRS VOLTAGE IN PRECORDIAL LEADS [QRS DEFLECTION < 1.0 mV IN CHEST LEADS] BORDERLINE ECG Electronically Signed By: Valdemar Pittman MD, [facility] XR Chest 1 Vw Portable Result Date: 04/14/2021 Narrative: EXAMINATION: XR CHEST 1 VIEW HISTORY: The patient is a 46-year-old female who presents with shortness of breath. TECHNIQUE: AP portable view of the chest. FINDINGS: Allowing for the poor inspiration, there is ill-defined alveolar type infiltrates in the lower half of the left lung. The remainder of the lungs are clear. Cardiovascular structures unremarkable. Impression: Left lower lobe lung infiltrates. Electronically signed by: Darrian Monsalve M.D. CT Chest PE (CTA) W Contrast Result Date: 04/14/2021 Narrative: EXAMINATION: CTA chest PE protocol with contrast HISTORY: Cough and SOB ORDER DATE: 04/14/2021 4:20 AM TECHNIQUE: CT chest images were acquired using a chest angiographic protocol with 3-Dimaging optimized for PE is obtained [id number] mL of Optiray 350. 2D Coronal and sagittal reformats were obtained. MIP and/or 3-D reconstructed images were created by the technologist. FINDINGS: Pulmonary arteries: No pulmonary embolus seen. RV/LV ratio: Less than 0.9 Lung parenchyma: Bilateral extensive groundglass infiltrates throughout both lungs Central airways: Normal. Mediastinum/Adenopathy: No evidence of mediastinal mass or adenopathy. Heart and great vessels: Normal. . No evidence of aortic aneurysm or dissection Other findings: None Upper abdomen: possible gallbladder sludge. Bones: Unremarkable. Impression: NO ACUTE OR CHRONIC PULMONARY EMBOLISM. EXTENSIVE BILATERAL INFILTRATES CONSISTENT WITHCOVID 19 APPEARANCE. Stat report by [facility] Electronically signed by: Silviano Whitehead M.D. ASSESSMENT/PLAN: Principal Problem: Pneumonia due to COVID-19 virus :} Acute respiratory failure: POA hypoxia secondary to COVID-19 pneumonia -continue nasal cannula 11 L -wean as tolerated -monitor closely :} Strep pharyngitis: POA diagnosed at clinic -continue antibiotic therapy -monitor closely -lozenges for sore throat :} COVID-19 pneumonia: POA D-dimer 662 -CT chest for PE protocol negative -chest x-ray shows left lower lobe infiltrate -Remdesvir -steroid continue :} Hypothyroidism: POA -levothyroxine :} Morbid obesity: POA BMI 44.09 -counseled on diet Modifications -encourage exercise :} GI prophylaxis -pantoprazole :} DVT prophylaxis -Lovenox Full Code ESTIMATED LENGTH OF STAY: > 2 midnights Approximate time spent for chart review, assessment, interview, and note - 50 min Medical Decision Making Complexity: medium BHAVYA GUZMAN DNP, [facility], [facility] 04/14/2021 12:07 PM Cosigned by Peng Barriga DO at 04/15/2021 7:22 AM CDT documented in this encounter Consult Notes * Javon Kauffman MD - 04/14/2021 12:19 PM CDTAssociated Order(s): IP CONSULT TO PULMONOLOGY Pulmonary Consult Reason for Consult: COVID 19 HPI: 46 yo woman w hypothyroidism and BMI 44 admitted 04/14 after presenting to the ED with shortness of breath. Sx present about a week. Started w cough. No chest pain. COVID positive. also hospitalized w COVID. No pre-existing lung disease. CT chest with diffuse patchy gg infiltrates consistent w COVID. Past Medical History: Diagnosis Date ??? Thyroid disease Past Surgical History: Procedure Laterality Date ??? SECTION Medications Prior to Admission Medication Sig Dispense Refill Last Dose ??? penicillin v potassium (VEETID) 500 mg tablet Take 500 mg by mouth 2 (two) times a day 04/14/2021 at Unknown time ??? levothyroxine (SYNTHROID) 75 mcg tablet 04/13/2021 at Unknown time Scheduled Meds:enoxaparin, 40 mg, subcutaneous, Q12H DEMETRIA [START ON 04/15/2021] levothyroxine, 75 mcg, oral, Daily - 0600 methylPREDNISolone sodium succinate, 40 mg, intravenous, Q6H DEMETRIA penicillin v potassium, 500 mg, oral, BID [START ON 04/15/2021] remdesivir, 100 mg, intravenous, Q24H remdesivir, 200 mg, intravenous, Q24H Continuous Infusions: PRN Meds:.ondansetron ODT OR ondansetron No Known Allergies Social History Occupational History ??? Not on file Tobacco Use ??? Smoking status: Never Smoker ??? Smokeless tobacco: Never Used Vaping Use ??? Vaping Use: Never used Substance and Sexual Activity ??? Alcohol use: No ??? Drug use: Not on file ??? Sexual activity: Not on file Family History Problem Relation Age of Onset ??? Diabetes type II Father Diabetes mellitus type 2; Cause of : Diabetes mellitus type 2 ??? Hypertension Father Hypertension; Cause of : Hypertension ??? Other Maternal Grandfather Unknown; Cause of : Unknown ??? Other Paternal Grandmother Unknown; Cause of : Unknown ??? Other Paternal Grandfather Unknown; Cause of : Unknown ??? Other Mother Alive and well; ??? Other Brother Alive and well; ??? Other Sister Alive and well; Review of Systems Constitutional: Negative for chills and fever. HENT: Negative for congestion, hearing loss, nosebleeds and sore throat. Eyes: Negative for blurred vision and pain. Respiratory: Positive for cough and shortness of breath. Negative for hemoptysis, sputum productionand wheezing. Cardiovascular: Negative for chest pain, palpitations and leg swelling. Gastrointestinal: Negative for constipation, diarrhea, nausea and vomiting. Genitourinary: Negative for dysuria and hematuria. Musculoskeletal: Negative for joint pain and myalgias. Skin: Negative for itching and rash. Neurological: Negative for seizures and headaches. Endo/Heme/Allergies: Negative for environmental allergies and polydipsia. Psychiatric/Behavioral: Negative for depression and memory loss. Above review of system reviewed on 04/14/2021 Vitals: Vitals: 04/14/21 1045 04/14/21 1050 04/14/21 1150 10/18/21 1215 BP: Pulse: 89 90 Resp: (!) 34 28 Temp: TempSrc: SpO2: 93% 95% 91% 95% Weight: Height: Temp (24hrs), Av.3 ??C (99.2 ??F), Min:37.3 ??C (99.2 ??F), Max:37.3 ??C (99.2 ??F) Oxygen Therapy SpO2: 95 % Pulse Oximetry Type: Continuous O2 Therapy: Supplemental oxygen O2 Del Method: High flow nasal cannula O2 Flow Rate (L/min): 11 L/min . Intake/Output Summary (Last 24 hours) at 04/14/2021 1220 Last data filed at 04/14/2021 0258 Gross per 24 hour Intake 1000 ml Output -- Net 1000 ml Physical Exam Constitutional: General: She is not in acute distress. Appearance: She is well-developed. HENT: Head: Normocephalic and atraumatic. Nose: Nose normal. Eyes: General: No scleral icterus. Conjunctiva/sclera: Conjunctivae normal. Neck: Thyroid: No thyromegaly. Trachea: No tracheal deviation. Cardiovascular: Rate and Rhythm: Normal rate and regular rhythm. Heart sounds: No murmur heard. No friction rub. Pulmonary: Effort: Pulmonary effort is normal. No respiratory distress. Breath sounds: Normal breath sounds. No stridor. No wheezing or rales. Chest: Chest wall: No tenderness. Abdominal: General: Bowel sounds are normal. There is no distension. Palpations: Abdomen is soft. Tenderness: There is no abdominal tenderness. Musculoskeletal: General: No tenderness. Cervical back: Normal range of motion. Skin: General: Skin is warm and dry. Neurological: Mental Status: She is alert and oriented to person, place, and time. Psychiatric: Behavior: Behavior normal. Lab/Radiology/Diagnostic Review: Labs: Recent Labs Lab Units 04/14/21 0147 WBC K/cumm 6.5 HEMOGLOBIN g/dL 13.1 HEMATOCRIT % 39.9 PLATELETS K/cumm 131* NEUTROS PCT % 85.2 LYMPHS PCT % 8.2 MONOS PCT % 6.0 EOS PCT % 0.0 Recent Labs Lab Units 04/14/21 0147 SODIUM mmol/L 136 POTASSIUM PLASMA mmol/L 3.4 CHLORIDE mmol/L 95* CO2 mmol/L 26 ANIONGAP mmol/L 15 GLUCOSE mg/dL 181 BUN SERUM mg/dL 11 CREATININE mg/dL 0.64 CALCIUM mg/dL 8.6 ALBUMIN g/dL 3.8 ALK PHOS Units/L 74 ALT Units/L 37 AST Units/L 52* BILIRUBIN TOTAL mg/dL 0.5 Imaging: Per HPI Other diagnostic tests: I have personally reviewed above laboratory findings, chest imaging, and diagnostic tests. 04/14/2021 Assessment and Plan: COVID 19, dx 04/14, symptom onset approx 04/08/21 Acute respiratory failure Hypothyroidism BMI 44 Recs: O2 DVT prophylaxis Dexamethasone remdesivir May need baricitinib if oxygenation worsens Check baseline CRP documented in this encounter Nursing Notes * Patricia Cameron, RN - 05/09/2021 7:56 PM CST Pt. Was reluctant to be discharged, offered cab services, refused cab services. Oxygen company called to check on delivery of oxygen, orders given to company. Reassured pt that oxygen will bedelivered tonight, and that home health services will be in connection with her. For appointment onthe 17th. Encouraged pt. To follow up with physician, and pulmonology as documented in discharge paper-work to receive a return to work clearance and paper-work. Discussed dismissal instructions with pt. Pt. Voiced understanding, copy given to pt. 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 Pt. Discharged per w/c in stable condition to home, paper work given to pt. Portable oxygen tank sent with pt. Phone numbers for the oxygen company given to pt. 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 Tolerated well, Sitting in chair and O2Sat@88-93% on 6LNC. It is slow productive but pt is pleased. 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 Perfect serve is down. Unable to contact attending amortization schedule clerk. Consult made to wound. Information was passed to pt new nurse. (Room 828). * Kathy Osei RN - 04/15/2021 12:04 AM CDT Patient currently sat at 93% on 15l HF, though room was made available in stepdown unit, FILTER SCREEN CLEANER wants patient to be observed for longer on the floor. Dr Blanca ordered her to placed on telemetry, same done. She is comfortably tolerating left lying position in NSR. documented in this encounter ED Notes * Adrian Harrison MD - 04/14/2021 1:26 AM CDT Chief Complaint Patient presents with ??? COVID-19 EVALUATION [facility] 04/14/2021 1:05 AM Shaina Huynh is a 46 y.o. female with a h/o thyroid disease and HLD presenting to the ED c/o worsening SOB s/p COVID-19 diagnosis 6 days ago. Patient states she began noticing symptoms 1 week ago. She reports she began feeling worse 5 days ago with constant SOB, cough, and fatigue. She states she started feeling as if she couldn't take a full breath from 1 day ago. Patient reports she is not vaccinated for COVID-19. Patient reports her and son also have COVID-19. She also states all three of them have strep pharyngitis and she is on penicillin. History provided by: Patient Past Medical History: Diagnosis Date ??? Thyroid disease Past Surgical History: Procedure Laterality Date ??? SECTION Family History Problem Relation Age of Onset ??? Diabetes type II Father Diabetes mellitus type 2; Cause of : Diabetes mellitus type 2 ??? Hypertension Father Hypertension; Cause of : Hypertension ??? Other Maternal Grandfather Unknown; Cause of : Unknown ??? Other Paternal Grandmother Unknown; Cause of : Unknown ??? Other Paternal Grandfather Unknown; Cause of : Unknown ??? Other Mother Alive and well; ??? Other Brother Alive and well; ??? Other Sister Alive and well; Social History Tobacco Use ??? Smoking status: Never Smoker ??? Smokeless tobacco: Never Used Vaping Use ??? Vaping Use: Never used Substance Use Topics ??? Alcohol use: No ??? Drug use: Not on file Review of Systems Review of Systems Constitutional: Positive for fatigue. Negative for chills and fever. HENT: Negative for congestion and ear pain. Eyes: Negative for pain and discharge. Respiratory: Positive for cough and shortness of breath. Cardiovascular: Negative for chest pain and palpitations. Gastrointestinal: Negative for abdominal pain, nausea and vomiting. Genitourinary: Negative for dysuria and frequency. Musculoskeletal: Negative for back pain and myalgias. Skin: Negative for rash and wound. Neurological: Negative for dizziness and headaches. Physical Exam ED Triage Vitals Temp Pulse Resp BP SpO2 04/14/21 0032 04/14/21 0032 04/14/21 0032 04/14/21 0032 04/14/21 0032 37.3 ??C (99.2 ??F) 101 24 141/69 (!) 82 % Temp src Heart Rate Source Patient Position BP Location FiO2 (%) 04/14/21 0032 04/17/21 1033 04/14/21 2140 04/14/21 1140 04/15/21 2350 Oral Monitor Lying Left arm 100 % Physical Exam Vitals and nursing note reviewed. Constitutional: Appearance: Normal appearance. She is obese. She is not ill-appearing. HENT: Head: Normocephalic and atraumatic. Right Ear: External ear normal. Left Ear: External ear normal. Nose: Nose normal. Mouth/Throat: Mouth: Mucous membranes are moist. Pharynx: Oropharynx is clear. Eyes: Extraocular Movements: Extraocular movements intact. Pupils: Pupils are equal, round, and reactive to light. Cardiovascular: Rate and Rhythm: Regular rhythm. Tachycardia present. Pulses: Normal pulses. Heart sounds: Normal heart sounds. Comments: Tachycardic 101. Pulmonary: Effort: Pulmonary effort is normal. Tachypnea present. No respiratory distress. Breath sounds: Normal breath sounds. No decreased air movement. No wheezing. Abdominal: General: Abdomen is flat. There is no distension. Tenderness: There is no abdominal tenderness. Musculoskeletal: General: No swelling or tenderness. Normal range of motion. Cervical back: Normal range of motion and neck supple. Right lower leg: No edema. Left lower leg: No edema. Skin: General: Skin is warm and dry. Capillary Refill: Capillary refill takes less than 2 seconds. Neurological: General: No focal deficit present. Mental Status: She is alert and oriented to person, place, and time. Procedures Labs Reviewed COMPREHENSIVE METABOLIC PANEL - Abnormal Result Value Sodium 136 Potassium, pl 3.4 Chloride 95 (*) CO2 26 Anion gap 15 BUN 11 Creatinine 0.64 Glucose 181 Calcium 8.6 Bilirubin, total 0.5 Protein, pl 7.6 Albumin 3.8 Alk phos 74 ALT 37 AST 52 (*) CBC WITH AUTO DIFFERENTIAL - Abnormal WBC 6.5 Hgb 13.1 Hct 39.9 Plt 131 (*) MPV 11.9 RBC 4.62 MCV 86.4 MCH 28.4 MCHC 32.8 RDW CV 14.5 RDW SD 45.6 D-DIMER, QUANTITATIVE - Abnormal D-Dimer 662 (*) DIFFERENTIAL AUTO - Abnormal Neutrophil abs 5.5 Imm gran abs 0.0 Lymphocyte abs 0.5 (*) Monocyte abs 0.4 Eosinophil abs 0.0 Basophil abs 0.0 Neutrophil pct 85.2 Imm gran pct 0.3 Lymphocyte pct 8.2 Monocyte pct 6.0 Eosinophil pct 0.0 Basophil pct 0.3 CRP (ACUTE PHASE) - Abnormal CRP 75.4 (*) CRP (ACUTE PHASE) - Abnormal CRP 77.6 (*) COMPREHENSIVE METABOLIC PANEL - Abnormal Sodium 143 Potassium, pl 3.3 Chloride 104 CO2 29 Anion gap 10 BUN 12 Creatinine 0.49 (*) Glucose 171 Calcium 8.4 (*) Bilirubin, total 0.4 Protein, pl 6.5 Albumin 3.2 (*) Alk phos 71 ALT 37 AST 42 D-DIMER, QUANTITATIVE - Abnormal D-Dimer 879 (*) CBC WITH AUTO DIFFERENTIAL - Abnormal WBC 9.1 Hgb 12.0 Hct 38.2 Plt 192 MPV 11.7 RBC 4.34 MCV 88.0 MCH 27.6 MCHC 31.4 (*) RDW CV 14.5 RDW SD 47.2 NRBC abs 0.00 DIFFERENTIAL AUTO - Abnormal Neutrophil abs 8.1 (*) Imm gran abs 0.0 Lymphocyte abs 0.5 (*) Monocyte abs 0.4 Eosinophil abs 0.0 Basophil abs 0.0 Neutrophil pct 89.5 Imm gran pct 0.4 Lymphocyte pct 5.3 Monocyte pct 4.8 Eosinophil pct 0.0 Basophil pct 0.0 COMPREHENSIVE METABOLIC PANEL - Abnormal Sodium 141 Potassium, pl 3.5 Chloride 102 CO2 29 Anion gap 10 BUN 12 Creatinine 0.47 (*) Glucose 172 Calcium 8.3 (*) Bilirubin, total 0.5 Protein, pl 6.1 (*) Albumin 2.9 (*) Alk phos 76 ALT 39 AST 52 (*) CBC WITH AUTO DIFFERENTIAL - Abnormal WBC 9.5 Hgb 11.5 (*) Hct 36.5 Plt 203 MPV 12.1 RBC 4.13 MCV 88.4 MCH 27.8 MCHC 31.5 (*) RDW CV 14.6 RDW SD 47.7 NRBC abs 0.00 DIFFERENTIAL AUTO - Abnormal Neutrophil abs 8.5 (*) Imm gran abs 0.0 Lymphocyte abs 0.6 (*) Monocyte abs 0.4 Eosinophil abs 0.0 Basophil abs 0.0 Neutrophil pct 88.9 Imm gran pct 0.3 Lymphocyte pct 6.3 Monocyte pct 4.4 Eosinophil pct 0.1 Basophil pct 0.0 HEMOGLOBIN A1C - Abnormal Hgb A1C 7.1 (*) Estimated Average Glucose 157 POCT GLUCOSE DEVICE - Abnormal Glucose, POC 224 (*) POCT GLUCOSE DEVICE - Abnormal Glucose, POC 288 (*) PRO B-TYPE NATRIURETIC PEPTIDE NT-proBNP 20 MAGNESIUM Magnesium 2.1 TROPONIN T HIGH-SENSITIVITY SERIES (BASELINE, 2HR, 4HR, 6HR) Trop T hs <6 TROPONIN T HIGH-SENSITIVITY 2-HOUR Trop T hs <6 Trop T hs delta 0 Trop T hs interp Insignificant EGFR eGFR 107 LACTATE Lactate 0.9 EGFR eGFR 117 EGFR eGFR 118 COMPREHENSIVE METABOLIC PANEL CBC WITH AUTO DIFFERENTIAL POCT GLUCOSE DEVICE Glucose, POC 135 POCT GLUCOSE DEVICE POCT GLUCOSE DEVICE POCT GLUCOSE DEVICE CT Chest PE (CTA) W Contrast ED Interpretation PROCEDURE INFORMATION: Exam: CTA Chest With Contrast Exam date and time: 04/14/2021 4:37 AM Age: 46 years old Clinical indication: Cough and shortness of breath; Patient HX: Cough, SOB, +covid, +ddimer; Additional info: + d-dimer TECHNIQUE: Imaging protocol: Computed tomographic angiography of the chest with contrast. 3D rendering (Not supervised by radiologist): MIP and/or 3D reconstructed images were created by the technologist. Radiation optimization: All CT scans at this facility use at least one of these dose optimization techniques: automated exposure control; mA and/or kV adjustment per patient size (includes targeted exams where dose is matched to clinical indication); or iterative reconstruction. Contrast material: OPTI 350; Contrast volume: 100 ml; Contrast route: INTRAVENOUS (IV); COMPARISON: No relevant prior studies available. FINDINGS: Pulmonary arteries: Normal. No pulmonary emboli. Aorta: There is no thoracic aortic dissection or aneurysm. Lungs: Fairly extensive bilateral infiltrates are present, slightly more confluent in the left mid to lower lung. Pleural spaces: Unremarkable. No pneumothorax. No pleural effusion. Heart: Unremarkable. No cardiomegaly. No pericardial effusion. Mediastinal space: Esophagus is normal. Lymph nodes: Unremarkable. No enlarged lymph nodes. Liver: Fatty liver. Bones/joints: Unremarkable. No acute fracture. Soft tissues: Unremarkable. Other findings: Obesity. IMPRESSION: Bilateral pneumonia. THIS DOCUMENT HAS BEEN ELECTRONICALLY SIGNED BY ESTRADA ARCHULETA MD THIS DOCUMENT WAS READ BY A [facility] RADIOLOGIST, ANY QUESTIONS PLEASE CALL [phone] Final Result NO ACUTE OR CHRONIC PULMONARY EMBOLISM. EXTENSIVE BILATERAL INFILTRATES CONSISTENT WITH COVID 19 APPEARANCE. Stat report by [facility] Electronically signed by: Silviano Whitehead M.D. XR Chest 1 Vw Portable Final Result Left lower lobe lung infiltrates. Electronically signed by: Darrian Monsalve M.D. BP 113/60 (BP Location: Left arm, Patient Position: Lying;HOB 30 degrees) Pulse 72 Temp 36 ??C (96.8 ??F) Resp (!) 40 Ht 172.7 cm (5' 8 ) Wt 131.5 kg (290 lb) SpO2 91% BMI 44.09 kg/m?? [facility] ED Course as of Apr 17 1849 Time: 04/14 254 Comment: Spoke with Dr. Iqbal, Hospitalist, who accepts pt for admission. Will order CT. By: Harmeet [facility] Final diagnoses: Pneumonia due to COVID-19 virus Hypoxia This note is prepared by Harmeet Valenuzela, acting as a scribe for Adrian Harrison MD. I electronicallysigned this note at 6:49 PM on 04/17/2021. I, Adrian Harrison MD, have personally performed the services described in the documentation, reviewedthe documentation, as recorded by the scribe in my presence, and it accurately and completely records my words and actions. Adrian Harrison MD 04/17/21 1849 * María Trejo RN - 04/14/2021 12:30 AM CDT We have Covid and I think my O2 is dropping * María Trejo RN - 04/14/2021 12:30 AM CDT Pt 02 was 82% Placed on 4LNP and remains low at 88%. Cleaned room and took to room 7 documented in this encounter Miscellaneous Notes * Plan of Care - Patricia Cameron RN - 05/09/2021 8:01 PM CST Goals: Clinical Goals for the Shift: Improved O2Sat on ambulation and increase ambulation Summary: Problem: Lack of Knowledge: Goal: Ability to state ways to decrease the risk of falls will improve 05/09/2021 2004 by Patricia Cameron RN Outcome: Adequate for Discharge 05/09/2021 1232 by Patricia Cameron RN Outcome: Progressing Problem: Safety: Goal: Will remain free from falls 05/09/2021 2004 by Patricia Cameron RN Outcome: Adequate for Discharge 05/09/2021 1232 by Patricia Cameron RN Outcome: Progressing Goal: Will remain free from injury from falls 05/09/20212003 by Patricia Cameron RN Outcome: Adequate for Discharge 05/09/2021 1232 by Patricia Cameron RN Outcome: Progressing Goal: Will remain free from falls and injury in home environment 05/09/2021 2004 by Patricia Cameron RN Outcome: Adequate for Discharge 05/09/2021 1232 by Patricia Cameron RN Outcome: Progressing Problem: Lack of Knowledge: Goal: Knowledge of risk factors and measures for prevention of condition will improve 05/09/20212003 by Patricia Cameron RN Outcome: Adequate for Discharge 05/09/2021 1232 by Patricia Cameron RN Outcome: Progressing Problem: Physical Regulation: Goal: Spread of further infection will be prevented 05/09/20212003 by Patricia Cameron RN Outcome: Adequate for Discharge 05/09/2021 1232 by Patricia Cameron RN Outcome: Progressing Goal: Complications related to the disease process, condition or treatment will be avoided or minimized 05/09/20212003 by Patricia Cameron RN Outcome: Adequate for Discharge 05/09/2021 1232 by Patricia Cameron RN Outcome: Progressing Problem: Cardiac: Goal: Ability to maintain vital signs within normal range will improve 05/09/20212003 by Patricia Cameron RN Outcome: Adequate for Discharge 05/09/2021 1232 by Patricia Cameron RN Outcome: Progressing Problem: Health Behavior: Goal: Understanding of discharge needs will improve 05/09/20212003 by Patricia Cameron RN Outcome: Adequate for Discharge 05/09/2021 1232 by Patricia Cameron RN Outcome: Progressing Problem: Lack of Knowledge: Goal: Ability to describe self-care measures that may prevent or decrease complications will improve 05/09/20212003 by Patricia Cameron RN Outcome: Adequate for Discharge 05/09/2021 1232 by Patricia Cameron RN Outcome: Progressing Goal: Knowledge of disease or condition will improve 05/09/20212003 by Patricia Cameron RN Outcome: Adequate for Discharge 05/09/2021 1232 by Patricia Cameron RN Outcome: Progressing Goal: Knowledge of the prescribed therapeutic regimen will improve 05/09/20212003 by Patricia Cameron RN Outcome: Adequate for Discharge 05/09/2021 1232 by Patricia Cameron RN Outcome: Progressing Goal: Knowledge of prevention and discharge planning will improve 05/09/20212003 by Patricia Cameron RN Outcome: Adequate for Discharge 05/09/2021 1232 by Patricia Cameron RN Outcome: Progressing Problem: Coping: Goal: Ability to adjust to condition or change in health will improve 05/09/20212003 by Patricia Cameron RN Outcome: Adequate for Discharge 05/09/2021 1232 by Patricia Cameron RN Outcome: Progressing Problem: Fluid Volume: Goal: Ability to maintain a balanced intake and output will improve 05/09/20212003 by Patricia Cameron RN Outcome: Adequate for Discharge 05/09/2021 1232 by Patricia Cameron RN Outcome: Progressing Problem: Health Behavior: Goal: Ability to identify and alter actions that are detrimental to health will improve 05/09/20212003 by Patricia Cameron RN Outcome: Adequate for Discharge 05/09/2021 1232 by Patricia Cameron RN Outcome: Progressing Goal: Ability to identify and utilize available resources and services will improve 05/09/20212003 by Patricia Cameron RN Outcome: Adequate for Discharge 05/09/2021 1232 by Patricia Cameron RN Outcome: Progressing Goal: Ability to manage health-related needs will improve 05/09/20212003 by Patricia Cameron RN Outcome: Adequate for Discharge 05/09/2021 1232 by Patricia Cameron RN Outcome: Progressing Problem: Nutritional: Goal: Maintenance of adequate nutrition will improve 05/09/20212003 by Patricia Cameron RN Outcome: Adequate for Discharge 05/09/2021 1232 by Patricia Cameron RN Outcome: Progressing Goal: Progress toward achieving an optimal weight will improve 05/09/20212003 by Patricia Cameron RN Outcome: Adequate for Discharge 05/09/2021 1232 by Patricia Cameron RN Outcome: Progressing Problem: Physical Regulation: Goal: Complications related to the disease process, condition or treatment will be avoided or minimized 05/09/20212003 by Patricia Cameron RN Outcome: Adequate for Discharge 05/09/2021 1232 by Patricia Cameron RN Outcome: Progressing Goal: Diagnostic test results will improve 05/09/20212003 by Patricia Cameron RN Outcome: Adequate for Discharge 05/09/2021 1232 by Patricia Cameron RN Outcome: Progressing Problem: Skin Integrity: Goal: Risk for impaired skin integrity will decrease 05/09/20212003 by Patricia Cameron RN Outcome: Adequate for Discharge 05/09/2021 1232 by Patricia Cameron RN Outcome: Progressing Problem: Lack of Knowledge: Goal: Knowledge of diagnostic tests will improve 05/09/20212003 by Patricia Cameron RN Outcome: Adequate for Discharge 05/09/2021 1232 by Patricia Cameron RN Outcome: Progressing Goal: Knowledge of the prescribed therapeutic regimen will improve 05/09/20212003 by Patricia Cameron RN Outcome: Adequate for Discharge 05/09/2021 1232 by Patricia Cameron RN Outcome: Progressing Problem: Fluid Volume: Goal: Maintenance of adequate hydration will improve 05/09/20212003 by Patricia Cameron RN Outcome: Adequate for Discharge 05/09/2021 1232 by Patricia Cameron RN Outcome: Progressing Problem: Respiratory: Goal: Ability to achieve and maintain a regular respiratory rate will improve 05/09/20212003 by Patricia Cameron RN Outcome: Adequate for Discharge 05/09/2021 1232 by Patricia Cameron RN Outcome: Progressing Goal: Ability to maintain a clear airway will improve 05/09/20212003 by Patricia Cameron RN Outcome: Adequate for Discharge 05/09/2021 1232 by Patricia Cameron RN Outcome: Progressing Goal: Ability to maintain normal pulse oximetry readings will improve 05/09/20212003 by Patricia Cameron RN Outcome: Adequate for Discharge 05/09/2021 1232 by Patricia Cameron RN Outcome: Progressing Goal: Ability to maintain arterial blood gas levels within normal range will improve 05/09/20212003 by Patricia Cameron RN Outcome: Adequate for Discharge 05/09/2021 1232 by Patricia Cameron RN Outcome: Progressing Goal: Verbalizations of increased ease of respirations will increase 05/09/2021 2004 by Patricia Cameron RN Outcome: Adequate for Discharge 05/09/2021 1232 by Patricia Cameron RN Outcome: Progressing Problem: Skin Integrity: Goal: Skin integrity will be supported 05/09/2021 2004 by Patricia Cameron RN Outcome: Adequate for Discharge 05/09/2021 1232 by Patricia Cameron RN Outcome: Progressing Problem: Activity: Goal: Mobility will improve 05/09/20212003 by Patricia Cameron RN Outcome: Adequate for Discharge 05/09/2021 1232 by Patricia Cameron RN Outcome: Progressing Problem: Lack of Knowledge: Goal: Understanding of ways to prevent future skin breakdown will improve 05/09/2021 2004 by Patricia Cameron RN Outcome: Adequate for Discharge 05/09/2021 1232 by Patricia Cameron RN Outcome: Progressing Goal: Ability to identify appropriate dietary choices will improve 05/09/20212003 by Patricia Cameron RN Outcome: Adequate for Discharge 05/09/2021 1232 by Patricia Cameron RN Outcome: Progressing Problem: Nutritional: Goal: Dietary intake will improve 05/09/20212003 by Patricia Cameron RN Outcome: Adequate for Discharge 05/09/2021 1232 by Patricia Cameron RN Outcome: Progressing Goal: Ability to maintain a balanced intake and output will improve 05/09/20212003 by Patricia Cameron RN Outcome: Adequate for Discharge 05/09/2021 1232 by Patricia Cameron RN Outcome: Progressing Problem: Skin Integrity: Goal: Risk for impaired skin integrity will decrease 05/09/20212003 by Patricia Cameron RN Outcome: Adequate for Discharge 05/09/2021 1232 by Patricia Cameron RN Outcome: Progressing Goal: Ability to demonstrate warm and dry skin will improve 05/09/20212003 by Patricia Cameron RN Outcome: Adequate for Discharge 05/09/2021 1232 by Patricia Cameron RN Outcome: Progressing Goal: Circulation will improve to fullest extent possible 05/09/20212003 by Patricia Cameron RN Outcome: Adequate for Discharge 05/09/2021 1232 by Patricia Cameron RN Outcome: Progressing Problem: Lack of Knowledge: Goal: Knowledge of risk factors and measures for prevention of condition will improve 05/09/2021 2004 by Patricia Cameron RN Outcome: Adequate for Discharge 05/09/2021 1232 by Patricia Cameron RN Outcome: Progressing Problem: Coping: Goal: Psychosocial and spiritual needs will be supported 05/09/20212003 by Patricia Cameron RN Outcome: Adequate for Discharge 05/09/2021 1232 by Patricia Cameron RN Outcome: Progressing Problem: Physical Regulation: Goal: Spread of further infection will be prevented 05/09/20212003 by Patricia Cameron RN Outcome: Adequate for Discharge 05/09/2021 1232 by Patricia Cameron RN Outcome: Progressing Problem: Respiratory: Goal: Will maintain a patent airway 05/09/20212003 by Patricia Cameron RN Outcome: Adequate for Discharge 05/09/2021 1232 by Patricia Cameron RN Outcome: Progressing Goal: Complications related to the disease process, condition or treatment will be avoided or minimized 05/09/20212003 by Patricia Cameron RN Outcome: Adequate for Discharge 05/09/2021 1232 by Patricia Cameron RN 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 Spoke with Zack Garza to inform him of patient and he will bring oxygen tank. Jyoti Sahu RN Case Manager [phone] KLING MACHINE OPERATOR * [facility] Note - Jyoti Sahu RN - 05/09/2021 12:51 PM CST Patient Information: Home O2 last 48 hours Default Flowsheet Data (last 48 hours) Home O2 Assessment Row Name 05/09/21 1100 Resting Information Resting HR. 96 bpm 05/09/21 1138 Resting SPO2 86 % 05/09/21 1138 Oxygen Setting RA 05/09/21 1138 Ambulation Trials to Assess Desaturation to 88% Activity 1: Ambulated (feet) 0 feet 05/09/21 1138 Oxygen Setting #1 3 05/09/21 1138 SPO2 (%) #1 90 % 05/09/21 1138 Activity 2: Ambulated (feet) 15 feet 05/09/21 1138 Oxygen Setting #2 4 05/09/21 1138 SPO2 (%) #2 86 % 05/09/21 1138 Activity 3: Ambulated (feet) 20 feet 05/09/21 1138 Oxygen Setting #3 6 05/09/21 1138 SPO2 (%) #3 92 % 05/09/21 1138 Activity 4: Ambulated (feet) 40 feet 05/09/21 1138 Oxygen Setting #4 6 05/09/21 1138 SPO2 % #4 91 % 05/09/21 1138 Activity 5: Ambulated (feet) 60 feet 05/09/21 1138 Oxygen Setting #5 6 05/09/21 1138 SPO2 (%) #5 92 % 05/09/21 1138 Post Ambulation Assessment HR Post Assessment 96 bpm 05/09/21 1138 RR Post Assessment 20 breaths/m 05/09/21 1138 Post Assessment Recommendation pt requires 3 liters at rest and 6 liters with exercation 05/09/21 1138 $ Pulmonary Stress Test Pulm Stress Test 05/09/21 1138 KLING MACHINE OPERATOR * Plan of Care - Patricia Cameron RN - 05/09/2021 12:32 PM CST Goals: Clinical Goals for the Shift: Improved O2Sat on ambulation and increase ambulation Summary: Problem: Lack of Knowledge: Goal: Ability to state ways to decrease the risk of falls will improve Outcome: Progressing Problem: Safety: Goal: Will remain free from falls Outcome: Progressing Goal: Will remain free from injury from falls Outcome: Progressing Goal: Will remain free from falls and injury in home environment Outcome: Progressing Problem: Lack of Knowledge: Goal: Knowledge of risk factors and measures for prevention of condition will improve Outcome: Progressing Problem: Physical Regulation: Goal: Spread of further infection will be prevented Outcome: Progressing Goal: Complications related to the disease process, condition or treatment will be avoided or minimized Outcome: Progressing Problem: Cardiac: Goal: Ability to maintain vital signs within normal range will improve Outcome: Progressing Problem: Health Behavior: Goal: Understanding of discharge needs will improve Outcome: Progressing Problem: Lack of Knowledge: Goal: Ability to describe self-care measures that may prevent or decrease complications will improve Outcome: Progressing Goal: Knowledge of disease or condition will improve Outcome: Progressing Goal: Knowledge of the prescribed therapeutic regimen will improve Outcome: Progressing Goal: Knowledge of prevention and discharge planning will improve Outcome: Progressing Problem: Coping: Goal: Ability to adjust to condition or change in health will improve Outcome: Progressing Problem: Fluid Volume: Goal: Ability to maintain a balanced intake and output will improve Outcome: Progressing Problem: Health Behavior: Goal: Ability to identify and alter actions that are detrimental to health will improve Outcome: Progressing Goal: Ability to identify and utilize available resources and services will improve Outcome: Progressing Goal: Ability to manage health-related needs will improve Outcome: Progressing Problem: Nutritional: Goal: Maintenance of adequate nutrition will improve Outcome: Progressing Goal: Progress toward achieving an optimal weight will improve Outcome: Progressing Problem: Physical Regulation: Goal: Complications related to the disease process, condition or treatment will be avoided or minimized Outcome: Progressing Goal: Diagnostic test results will improve Outcome: Progressing Problem: Skin Integrity: Goal: Risk for impaired skin integrity will decrease Outcome: Progressing Problem: Lack of Knowledge: Goal: Knowledge of diagnostic tests will improve Outcome: Progressing Goal: Knowledge of the prescribed therapeutic regimen will improve Outcome: Progressing Problem: Fluid Volume: Goal: Maintenance of adequate hydration will improve Outcome: Progressing Problem: Respiratory: Goal: Ability to achieve and maintain a regular respiratory rate will improve Outcome: Progressing Goal: Ability to maintain a clear airway will improve Outcome: Progressing Goal: Ability to maintain normal pulse oximetry readings will improve Outcome: Progressing Goal: Ability to maintain arterial blood gas levels within normal range will improve Outcome: Progressing Goal: Verbalizations of increased ease of respirations will increase Outcome: Progressing Problem: Skin Integrity: Goal: Skin integrity will be supported Outcome: Progressing Problem: Activity: Goal: Mobility will improve Outcome: Progressing Problem: Lack of Knowledge: Goal: Understanding of ways to prevent future skin breakdown will improve Outcome: Progressing Goal: Ability to identify appropriate dietary choices will improve Outcome: Progressing Problem: Nutritional: Goal: Dietary intake will improve Outcome: Progressing Goal: Ability to maintain a balanced intake and output will improve Outcome: Progressing Problem: Skin Integrity: Goal: Risk for impaired skin integrity will decrease Outcome: Progressing Goal: Ability to demonstrate warm and dry skin will improve Outcome: Progressing Goal: Circulation will improve to fullest extent possible Outcome: Progressing Problem: Lack of Knowledge: Goal: Knowledge of risk factors and measures for prevention of condition will improve Outcome: Progressing Problem: Coping: Goal: Psychosocial and spiritual needs will be supported Outcome: Progressing Problem: Physical Regulation: Goal: Spread of further infection will be prevented Outcome: Progressing Problem: Respiratory: Goal: Will maintain a patent airway Outcome: Progressing Goal: Complications related to the disease process, condition or treatment will be avoided or minimized 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 * Plan of Care - Mylene Batista RN - 05/09/2021 12:08 PM CST Spoke withRachel at [facility] he will follow/sign orders for home care needs RN/PT. KLING MACHINE OPERATOR * Plan of Care - Jyoti Sahu RN - 05/09/2021 10:21 AM CST [facility] able to see patient with soc of 05/14. Jyoti Sahu RN Case Manager [phone] KLING MACHINE OPERATOR * Plan of Care - Mylene Batista RN - 05/09/2021 9:35 AM CST Home Health Consult received patient accepted to [facility] home care. ADD 05/09 with SOC 05/14 date specific for RN/PT. DESHAWN Montes notified. Message left for PCP to see if they will follow and sign orders for home care awaiting return call. KLING MACHINE OPERATOR * Plan of Care - Patricia Cameron RN - 05/08/2021 2:07 PM CST Goals: Clinical Goals for the Shift: Improved O2Sat on ambulation and increase ambulation Summary: Problem: Lack of Knowledge: Goal: Ability to state ways to decrease the risk of falls will improve Outcome: Progressing Problem: Safety: Goal: Will remain free from falls Outcome: Progressing Goal: Will remain free from injury from falls Outcome: Progressing Goal: Will remain free from falls and injury in home environment Outcome: Progressing Problem: Lack of Knowledge: Goal: Knowledge of risk factors and measures for prevention of condition will improve Outcome: Progressing Problem: Physical Regulation: Goal: Spread of further infection will be prevented Outcome: Progressing Goal: Complications related to the disease process, condition or treatment will be avoided or minimized Outcome: Progressing Problem: Cardiac: Goal: Ability to maintain vital signs within normal range will improve Outcome: Progressing Problem: Health Behavior: Goal: Understanding of discharge needs will improve Outcome: Progressing Problem: Lack of Knowledge: Goal: Ability to describe self-care measures that may prevent or decrease complications will improve Outcome: Progressing Goal: Knowledge of disease or condition will improve Outcome: Progressing Goal: Knowledge of the prescribed therapeutic regimen will improve Outcome: Progressing Goal: Knowledge of prevention and discharge planning will improve Outcome: Progressing Problem: Coping: Goal: Ability to adjust to condition or change in health will improve Outcome: Progressing Problem: Fluid Volume: Goal: Ability to maintain a balanced intake and output will improve Outcome: Progressing Problem: Health Behavior: Goal: Ability to identify and alter actions that are detrimental to health will improve Outcome: Progressing Goal: Ability to identify and utilize available resources and services will improve Outcome: Progressing Goal: Ability to manage health-related needs will improve Outcome: Progressing Problem: Nutritional: Goal: Maintenance of adequate nutrition will improve Outcome: Progressing Goal: Progress toward achieving an optimal weight will improve Outcome: Progressing Problem: Physical Regulation: Goal: Complications related to the disease process, condition or treatment will be avoided or minimized Outcome: Progressing Goal: Diagnostic test results will improve Outcome: Progressing Problem: Skin Integrity: Goal: Risk for impaired skin integrity will decrease Outcome: Progressing Problem: Lack of Knowledge: Goal: Knowledge of diagnostic tests will improve Outcome: Progressing Goal: Knowledge of the prescribed therapeutic regimen will improve Outcome: Progressing Problem: Fluid Volume: Goal: Maintenance of adequate hydration will improve Outcome: Progressing Problem: Respiratory: Goal: Ability to achieve and maintain a regular respiratory rate will improve Outcome: Progressing Goal: Ability to maintain a clear airway will improve Outcome: Progressing Goal: Ability to maintain normal pulse oximetry readings will improve Outcome: Progressing Goal: Ability to maintain arterial blood gas levels within normal range will improve Outcome: Progressing Goal: Verbalizations of increased ease of respirations will increase Outcome: Progressing Problem: Skin Integrity: Goal: Skin integrity will be supported Outcome: Progressing Problem: Activity: Goal: Mobility will improve Outcome: Progressing Problem: Lack of Knowledge: Goal: Understanding of ways to prevent future skin breakdown will improve Outcome: Progressing Goal: Ability to identify appropriate dietary choices will improve Outcome: Progressing Problem: Nutritional: Goal: Dietary intake will improve Outcome: Progressing Goal: Ability to maintain a balanced intake and output will improve Outcome: Progressing Problem: Skin Integrity: Goal: Risk for impaired skin integrity will decrease Outcome: Progressing Goal: Ability to demonstrate warm and dry skin will improve Outcome: Progressing Goal: Circulation will improve to fullest extent possible Outcome: Progressing Problem: Lack of Knowledge: Goal: Knowledge of risk factors and measures for prevention of condition will improve Outcome: Progressing Problem: Coping: Goal: Psychosocial and spiritual needs will be supported Outcome: Progressing Problem: Physical Regulation: Goal: Spread of further infection will be prevented Outcome: Progressing Problem: Respiratory: Goal: Will maintain a patent airway Outcome: Progressing Goal: Complications related to the disease process, condition or treatment will be avoided or minimized 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 * Plan of Cassy Reece RN - 05/07/2021 11:40 PM CST Goals: Clinical Goals for the Shift: Improved O2Sat on ambulation and increase ambulation Problem: Lack of Knowledge: Goal: Ability to state ways to decrease the risk of falls will improve Outcome: Progressing Problem: Safety: Goal: Will remain free from falls Outcome: Progressing Goal: Will remain free from injury from falls Outcome: Progressing Goal: Will remain free from falls and injury in home environment Outcome: Progressing Problem: Lack of Knowledge: Goal: Knowledge of risk factors and measures for prevention of condition will improve Outcome: Progressing Problem: Physical Regulation: Goal: Spread of further infection will be prevented Outcome: Progressing Goal: Complications related to the disease process, condition or treatment will be avoided or minimized Outcome: Progressing Problem: Cardiac: Goal: Ability to maintain vital signs within normal range will improve Outcome: Progressing Problem: Health Behavior: Goal: Understanding of discharge needs will improve Outcome: Progressing Problem: Lack of Knowledge: Goal: Ability to describe self-care measures that may prevent or decrease complications will improve Outcome: Progressing Goal: Knowledge of disease or condition will improve Outcome: Progressing Goal: Knowledge of the prescribed therapeutic regimen will improve Outcome: Progressing Goal: Knowledge of prevention and discharge planning will improve Outcome: Progressing Problem: Coping: Goal: Ability to adjust to condition or change in health will improve Outcome: Progressing Problem: Fluid Volume: Goal: Ability to maintain a balanced intake and output will improve Outcome: Progressing Problem: Health Behavior: Goal: Ability to identify and alter actions that are detrimental to health will improve Outcome: Progressing Goal: Ability to identify and utilize available resources and services will improve Outcome: Progressing Goal: Ability to manage health-related needs will improve Outcome: Progressing Problem: Nutritional: Goal: Maintenance of adequate nutrition will improve Outcome: Progressing Goal: Progress toward achieving an optimal weight will improve Outcome: Progressing Problem: Physical Regulation: Goal: Complications related to the disease process, condition or treatment will be avoided or minimized Outcome: Progressing Goal: Diagnostic test results will improve Outcome: Progressing Problem: Skin Integrity: Goal: Risk for impaired skin integrity will decrease Outcome: Progressing Problem: Lack of Knowledge: Goal: Knowledge of diagnostic tests will improve Outcome: Progressing Goal: Knowledge of the prescribed therapeutic regimen will improve Outcome: Progressing Problem: Fluid Volume: Goal: Maintenance of adequate hydration will improve Outcome: Progressing Problem: Respiratory: Goal: Ability to achieve and maintain a regular respiratory rate will improve Outcome: Progressing Goal: Ability to maintain a clear airway will improve Outcome: Progressing Goal: Ability to maintain normal pulse oximetry readings will improve Outcome: Progressing Goal: Ability to maintain arterial blood gas levels within normal range will improve Outcome: Progressing Goal: Verbalizations of increased ease of respirations will increase Outcome: Progressing Problem: Skin Integrity: Goal: Skin integrity will be supported Outcome: Progressing Problem: Activity: Goal: Mobility will improve Outcome: Progressing Problem: Lack of Knowledge: Goal: Understanding of ways to prevent future skin breakdown will improve Outcome: Progressing Goal: Ability to identify appropriate dietary choices will improve Outcome: Progressing Problem: Nutritional: Goal: Dietary intake will improve Outcome: Progressing Goal: Ability to maintain a balanced intake and output will improve Outcome: Progressing Problem: Skin Integrity: Goal: Risk for impaired skin integrity will decrease Outcome: Progressing Goal: Ability to demonstrate warm and dry skin will improve Outcome: Progressing Goal: Circulation will improve to fullest extent possible Outcome: Progressing Problem: Lack of Knowledge: Goal: Knowledge of risk factors and measures for prevention of condition will improve Outcome: Progressing Problem: Coping: Goal: Psychosocial and spiritual needs will be supported Outcome: Progressing Problem: Physical Regulation: Goal: Spread of further infection will be prevented Outcome: Progressing Problem: Respiratory: Goal: Will maintain a patent airway Outcome: Progressing Goal: Complications related to the disease process, condition or treatment will be avoided or minimized Outcome: Progressing Summary: KLING MACHINE OPERATOR * Plan of Care - Lynne Sullivan RN - 05/07/2021 3:10 PM CST Goals: Clinical Goals for the Shift: monitor O2 level, wean as tolerated, safety, comfort Summary: Stable VS\O2Sat on ambulation, up to chair, safe comfort care KLING MACHINE OPERATOR * Plan of Care - Shaina Ochoa COTA - 05/07/2021 2:48 PM CST Problem: OT Misc Goal: OT STG - [facility] [place] 3 Description: Patient will complete LE dressing of underwear and socks Independently one time with equipment as needed Outcome: Progressing Note: LE DRESSING (UNDERWEAR / PANTS) LOCATION OF LE DRESSING (UNDERWEAR / PANTS): Sitting in bedside chair / recliner TASKS COMPLETED: Underwear OVERALL ASSIST LEVEL: SUPERVISION ASSISTANCE / VERBAL CUES ADDITIONAL DOCUMENTATION: PATIENT DONNED UNDERWEAR WITH GOLD FRAME ASSEMBLER AND DEMONSTRATES GOOD DYNAMIC STANDING BALANCE WITH TASKS PUTTING ON / TAKING OFF FOOTWEAR LOCATION OF PUTTING ON / TAKING OFF FOOTWEAR: Sitting in bedside chair / recliner TASKS COMPLETED: Sock(s) OVERALL ASSIST LEVEL: SUPERVISION ASSISTANCE / VERBAL CUES ADDITIONAL DOCUMENTATION: PATIENT DONNED AND DOFFED SOCKS WITH FIGURE FOUR METHOD AND 2(MIN) V/CS FOR PLB WITH TASKS. Goal: OT STG - [facility] [place] 6 Description: Patient will verbalize/demonstrate 4-5 energy conservation techniques independently toimprove tolerance for ADLs one time Outcome: Progressing Note: LE DRESSING (UNDERWEAR / PANTS) LOCATION OF LE DRESSING (UNDERWEAR / PANTS): Sitting in bedside chair / recliner TASKS COMPLETED: Underwear OVERALL ASSIST LEVEL: SUPERVISION ASSISTANCE / VERBAL CUES ADDITIONAL DOCUMENTATION: PATIENT DONNED UNDERWEAR WITH GOLD FRAME ASSEMBLER AND DEMONSTRATES GOOD DYNAMIC STANDING BALANCE WITH TASKS PUTTING ON / TAKING OFF FOOTWEAR LOCATION OF PUTTING ON / TAKING OFF FOOTWEAR: Sitting in bedside chair / recliner TASKS COMPLETED: Sock(s) OVERALL ASSIST LEVEL: SUPERVISION ASSISTANCE / VERBAL CUES ADDITIONAL DOCUMENTATION: PATIENT DONNED AND DOFFED SOCKS WITH FIGURE FOUR METHOD AND 2(MIN) V/CS FOR PLB WITH TASKS. Transfer(s): B/S CHAIR TO/FROM [facility] [place] [facility] WITH 2(MIN) V/CS FOR PLB WITH TASKS MAGALI Maloney 05/07/21 2:48 PM KLING MACHINE OPERATOR * Plan of Care - Socorro Soni RN - 05/06/2021 10:30 PM CST Goals: Clinical Goals for the Shift: monitor O2 level, wean as tolerated, safety, comfort Summary: Problem: Lack of Knowledge: Goal: Ability to state ways to decrease the risk of falls will improve 05/06/20210 by Socorro Soni RN Outcome: Progressing 05/06/2021 2216 by Socorro Soni RN Outcome: Progressing Problem: Safety: Goal: Will remain free from falls 05/06/20210 by Socorro Soni RN Outcome: Progressing 05/06/2021 2216 by Socorro Soni RN Outcome: Progressing Goal: Will remain free from injury from falls 05/06/20210 by Socorro Soni RN Outcome: Progressing 05/06/2021 2216 by Socorro Soni RN Outcome: Progressing Goal: Will remain free from falls and injury in home environment 05/06/2021 2230 by Socorro Soni RN Outcome: Progressing 05/06/2021 2216 by Socorro Soni RN Outcome: Progressing Problem: Lack of Knowledge: Goal: Knowledge of risk factors and measures for prevention of condition will improve 05/06/2021 2230 by Socorro Soni RN Outcome: Progressing 05/06/2021 2216 by Socorro Soni RN Outcome: Progressing Problem: Physical Regulation: Goal: Spread of further infection will be prevented 05/06/2021 2230 by Socorro Soni RN Outcome: Progressing 05/06/2021 2216 by Socorro Soni RN Outcome: Progressing Goal: Complications related to the disease process, condition or treatment will be avoided or minimized 05/06/2021 223 by Socorro Soni RN Outcome: Progressing 05/06/2021 221 by Socorro Soni RN Outcome: Progressing Problem: Cardiac: Goal: Ability to maintain vital signs within normal range will improve 05/06/2021 2230 by Socorro Soni RN Outcome: Progressing 05/06/2021 2216 by Socorro Soni RN Outcome: Progressing Problem: Health Behavior: Goal: Understanding of discharge needs will improve 05/06/2021 223 by Socorro Soni RN Outcome: Progressing 05/06/2021 2216 by Socorro Soni RN Outcome: Progressing Problem: Lack of Knowledge: Goal: Ability to describe self-care measures that may prevent or decrease complications will improve 05/06/2021 2230 by Socorro Soni RN Outcome: Progressing 05/06/2021 2216 by Socorro Soni RN Outcome: Progressing Goal: Knowledge of disease or condition will improve 05/06/2021 2230 by Socorro Soni RN Outcome: Progressing 05/06/2021 2216 by Socorro Soni RN Outcome: Progressing Goal: Knowledge of the prescribed therapeutic regimen will improve 05/06/2021 2230 by Socorro Soni RN Outcome: Progressing 05/06/2021 2216 by Socorro Soni RN Outcome: Progressing Goal: Knowledge of prevention and discharge planning will improve 05/06/2021 2230 by Socorro Soni RN Outcome: Progressing 05/06/2021 2216 by Socorro Soni RN Outcome: Progressing Problem: Coping: Goal: Ability to adjust to condition or change in health will improve 05/06/2021 2230 by Socorro Soni RN Outcome: Progressing 05/06/2021 2216 by Socorro Soni RN Outcome: Progressing Problem: Fluid Volume: Goal: Ability to maintain a balanced intake and output will improve 05/06/2021 2230 by Socorro Soni RN Outcome: Progressing 05/06/2021 2216 by Socorro Soni RN Outcome: Progressing Problem: Health Behavior: Goal: Ability to identify and alter actions that are detrimental to health will improve 05/06/2021 2230 by Socorro Soni RN Outcome: Progressing 05/06/2021 2216 by Socorro Soni RN Outcome: Progressing Goal: Ability to identify and utilize available resources and services will improve 05/06/2021 2230 by Socorro Soni RN Outcome: Progressing 05/06/2021 2216 by Socorro Soni RN Outcome: Progressing Goal: Ability to manage health-related needs will improve 05/06/2021 2230 by Socorro Soni RN Outcome: Progressing 05/06/2021 2216 by Socorro Soni RN Outcome: Progressing Problem: Nutritional: Goal: Maintenance of adequate nutrition will improve 05/06/2021 2230 by Socorro Soni RN Outcome: Progressing 05/06/2021 2216 by Socorro Soni RN Outcome: Progressing Goal: Progress toward achieving an optimal weight will improve 05/06/2021 2230 by Socorro Soni RN Outcome: Progressing 05/06/2021 2216 by Socorro Soni RN Outcome: Progressing Problem: Physical Regulation: Goal: Complications related to the disease process, condition or treatment will be avoided or minimized 05/06/2021 2230 by Socorro Soni RN Outcome: Progressing 05/06/2021 2216 by Socorro Soni RN Outcome: Progressing Goal: Diagnostic test results will improve 05/06/2021 2230 by Socorro Soni RN Outcome: Progressing 05/06/2021 2216 by Socorro Soni RN Outcome: Progressing Problem: Skin Integrity: Goal: Risk for impaired skin integrity will decrease 05/06/2021 2230 by Socorro Soni RN Outcome: Progressing 05/06/2021 2216 by Socorro Soni RN Outcome: Progressing Problem: Lack of Knowledge: Goal: Knowledge of diagnostic tests will improve 05/06/2021 2230 by Socorro Soni RN Outcome: Progressing 05/06/2021 2216 by Socorro Soni RN Outcome: Progressing Goal: Knowledge of the prescribed therapeutic regimen will improve 05/06/2021 2230 by Socorro Soni RN Outcome: Progressing 05/06/2021 2216 by Socorro Soni RN Outcome: Progressing Problem: Fluid Volume: Goal: Maintenance of adequate hydration will improve 05/06/2021 2230 by Socorro Soni RN Outcome: Progressing 05/06/2021 2216 by Socorro Soni RN Outcome: Progressing Problem: Respiratory: Goal: Ability to achieve and maintain a regular respiratory rate will improve 05/06/2021 2230 by Socorro Soni RN Outcome: Progressing 05/06/2021 2216 by Socorro Soni RN Outcome: Progressing Goal: Ability to maintain a clear airway will improve 05/06/2021 2230 by Socorro Soni RN Outcome: Progressing 05/06/2021 2216 by Socorro Soni RN Outcome: Progressing Goal: Ability to maintain normal pulse oximetry readings will improve 05/06/2021 2230 by Socorro Soni RN Outcome: Progressing 05/06/2021 2216 by Socorro Soni RN Outcome: Progressing Goal: Ability to maintain arterial blood gas levels within normal range will improve 05/06/2021 2230 by Socorro Soni RN Outcome: Progressing 05/06/2021 2216 by Socorro Soni RN Outcome: Progressing Goal: Verbalizations of increased ease of respirations will increase 05/06/2021 2230 by Socorro Soni RN Outcome: Progressing 05/06/2021 2216 by Socorro Soni RN Outcome: Progressing Problem: Skin Integrity: Goal: Skin integrity will be supported 05/06/2021 2230 by Socorro Soni RN Outcome: Progressing 05/06/2021 2216 by Socorro Soni RN Outcome: Progressing Problem: Activity: Goal: Mobility will improve 05/06/2021 2230 by Socorro Soni RN Outcome: Progressing 05/06/2021 2216 by Socorro Soni RN Outcome: Progressing Problem: Lack of Knowledge: Goal: Understanding of ways to prevent future skin breakdown will improve 05/06/2021 2230 by Socorro Soni RN Outcome: Progressing 05/06/2021 2216 by Socorro Soni RN Outcome: Progressing Goal: Ability to identify appropriate dietary choices will improve 05/06/2021 2230 by Socorro Soni RN Outcome: Progressing 05/06/2021 2216 by Socorro Soni RN Outcome: Progressing Problem: Nutritional: Goal: Dietary intake will improve 05/06/2021 2230 by Socorro Soni RN Outcome: Progressing 05/06/2021 2216 by Socorro Soni RN Outcome: Progressing Goal: Ability to maintain a balanced intake and output will improve 05/06/2021 2230 by Socorro Soni RN Outcome: Progressing 05/06/2021 2216 by Socorro Soni RN Outcome: Progressing Problem: Skin Integrity: Goal: Risk for impaired skin integrity will decrease 05/06/2021 2230 by Socorro Soni RN Outcome: Progressing 05/06/2021 2216 by Socorro Soni RN Outcome: Progressing Goal: Ability to demonstrate warm and dry skin will improve 05/06/2021 2230 by Socorro Soni RN Outcome: Progressing 05/06/2021 2216 by Socorro Soni RN Outcome: Progressing Goal: Circulation will improve to fullest extent possible 05/06/2021 2230 by Socorro Soni RN Outcome: Progressing 05/06/2021 2216 by Socorro Soni RN Outcome: Progressing Problem: Lack of Knowledge: Goal: Knowledge of risk factors and measures for prevention of condition will improve 05/06/20212229 by Socorro Soni RN Outcome: Progressing 05/06/2021 2216 by Socroro Soni RN Outcome: Progressing Problem: Coping: Goal: Psychosocial and spiritual needs will be supported 05/06/2021 223 by Socorro Soni RN Outcome: Progressing 05/06/2021 2216 by Socorro Soni RN Outcome: Progressing Problem: Physical Regulation: Goal: Spread of further infection will be prevented 05/06/20212229 by Socorro Soni RN Outcome: Progressing 05/06/2021 221 by Socorro Soni RN Outcome: Progressing Problem: Respiratory: Goal: Will maintain a patent airway 05/06/20212229 by Socorro Soni RN Outcome: Progressing 05/06/2021 2216 by Socorro Soni RN Outcome: Progressing Goal: Complications related to the disease process, condition or treatment will be avoided or minimized 05/06/20212229 by Socorro Soni RN Outcome: Progressing 05/06/20212215 by Socorro Soni RN 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 * Plan of Care - Socorro Soni RN - 05/06/2021 10:16 PM CST Goals: Clinical Goals for the Shift: monitor O2 level, wean as tolerated, safety, comfort Summary: Problem: Lack of Knowledge: Goal: Ability to state ways to decrease the risk of falls will improve Outcome: Progressing Problem: Safety: Goal: Will remain free from falls Outcome: Progressing Goal: Will remain free from injury from falls Outcome: Progressing Goal: Will remain free from falls and injury in home environment Outcome: Progressing Problem: Lack of Knowledge: Goal: Knowledge of risk factors and measures for prevention of condition will improve Outcome: Progressing Problem: Physical Regulation: Goal: Spread of further infection will be prevented Outcome: Progressing Goal: Complications related to the disease process, condition or treatment will be avoided or minimized Outcome: Progressing Problem: Cardiac: Goal: Ability to maintain vital signs within normal range will improve Outcome: Progressing Problem: Health Behavior: Goal: Understanding of discharge needs will improve Outcome: Progressing Problem: Lack of Knowledge: Goal: Ability to describe self-care measures that may prevent or decrease complications will improve Outcome: Progressing Goal: Knowledge of disease or condition will improve Outcome: Progressing Goal: Knowledge of the prescribed therapeutic regimen will improve Outcome: Progressing Goal: Knowledge of prevention and discharge planning will improve Outcome: Progressing Problem: Coping: Goal: Ability to adjust to condition or change in health will improve Outcome: Progressing Problem: Fluid Volume: Goal: Ability to maintain a balanced intake and output will improve Outcome: Progressing Problem: Health Behavior: Goal: Ability to identify and alter actions that are detrimental to health will improve Outcome: Progressing Goal: Ability to identify and utilize available resources and services will improve Outcome: Progressing Goal: Ability to manage health-related needs will improve Outcome: Progressing Problem: Nutritional: Goal: Maintenance of adequate nutrition will improve Outcome: Progressing Goal: Progress toward achieving an optimal weight will improve Outcome: Progressing Problem: Physical Regulation: Goal: Complications related to the disease process, condition or treatment will be avoided or minimized Outcome: Progressing Goal: Diagnostic test results will improve Outcome: Progressing Problem: Skin Integrity: Goal: Risk for impaired skin integrity will decrease Outcome: Progressing Problem: Lack of Knowledge: Goal: Knowledge of diagnostic tests will improve Outcome: Progressing Goal: Knowledge of the prescribed therapeutic regimen will improve Outcome: Progressing Problem: Fluid Volume: Goal: Maintenance of adequate hydration will improve Outcome: Progressing Problem: Respiratory: Goal: Ability to achieve and maintain a regular respiratory rate will improve Outcome: Progressing Goal: Ability to maintain a clear airway will improve Outcome: Progressing Goal: Ability to maintain normal pulse oximetry readings will improve Outcome: Progressing Goal: Ability to maintain arterial blood gas levels within normal range will improve Outcome: Progressing Goal: Verbalizations of increased ease of respirations will increase Outcome: Progressing Problem: Skin Integrity: Goal: Skin integrity will be supported Outcome: Progressing Problem: Activity: Goal: Mobility will improve Outcome: Progressing Problem: Lack of Knowledge: Goal: Understanding of ways to prevent future skin breakdown will improve Outcome: Progressing Goal: Ability to identify appropriate dietary choices will improve Outcome: Progressing Problem: Nutritional: Goal: Dietary intake will improve Outcome: Progressing Goal: Ability to maintain a balanced intake and output will improve Outcome: Progressing Problem: Skin Integrity: Goal: Risk for impaired skin integrity will decrease Outcome: Progressing Goal: Ability to demonstrate warm and dry skin will improve Outcome: Progressing Goal: Circulation will improve to fullest extent possible Outcome: Progressing Problem: Lack of Knowledge: Goal: Knowledge of risk factors and measures for prevention of condition will improve Outcome: Progressing Problem: Coping: Goal: Psychosocial and spiritual needs will be supported Outcome: Progressing Problem: Physical Regulation: Goal: Spread of further infection will be prevented Outcome: Progressing Problem: Respiratory: Goal: Will maintain a patent airway Outcome: Progressing Goal: Complications related to the disease process, condition or treatment will be avoided or minimized 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 * Plan of Care - Lynne Sullivan RN - 05/06/2021 10:52 AM CST Goals: Clinical Goals for the Shift: maintain stable VS, monitor O2, prevent falls. [facility] comfort/safety Summary: Stable VS/Pain, begin to ambulate, titrate O2 to tolerate ambulation. KLING MACHINE OPERATOR * Plan of Care - Jyoti Sahu RN - 05/05/2021 12:40 PM CST Patient on 8L high flow oxygen. Per dca, nurse will attempt to wean. Jyoti Sahu RN Case Manager [phone] KLING MACHINE OPERATOR * Plan of Care - Shaina Ochoa COTA - 05/05/2021 12:21 PM CST Problem: OT Misc Goal: OT STG - Misc 1 Description: Patient will complete bathing with supervision assist one time Outcome: Progressing Note: SHOWER / BATHE SELF TYPE OF BATHING: SPONGEBATHING LOCATION OF SHOWER / BATHE SELF: Supine with head of bed elevated TASKS COMPLETED: ALL COMPONENTS COMPONENTS THAT REQUIRED ASSISTANCE (IF APPLICABLE): BILATERAL FEET OVERALL ASSIST LEVEL: PARTIAL / MODERATE ASSISTANCE: LESS THAN HALF (1% - 49%) ADAPTIVE EQUIPMENT (IF APPLICABLE): no assistive device ADDITIONAL DOCUMENTATION: PATIENT REQUIRED 2(MIN ) V/CS FOR PLB WITH TASKS \ MAGALI Maloney 05/05/21 12:21 PM KLING MACHINE OPERATOR * Plan of Care - Lynne Sullivan RN - 05/05/2021 10:08 AM CST Goals: Clinical Goals for the Shift: maintain stable VS, monitor O2, prevent falls. [facility] comfort/safety Summary: Stable VS, monitor O2, prevent falls. [facility] comfort/safety KLING MACHINE OPERATOR * Plan of Care - Shaina Sawyer RN - 05/04/2021 11:23 PM CST Problem: Lack of Knowledge: Goal: Ability to state ways to decrease the risk of falls will improve Outcome: Progressing Problem: Safety: Goal: Will remain free from falls Outcome: Progressing Goal: Will remain free from injury from falls Outcome: Progressing Goal: Will remain free from falls and injury in home environment Outcome: Progressing Problem: Lack of Knowledge: Goal: Knowledge of risk factors and measures for prevention of condition will improve Outcome: Progressing Problem: Physical Regulation: Goal: Spread of further infection will be prevented Outcome: Progressing Goal: Complications related to the disease process, condition or treatment will be avoided or minimized Outcome: Progressing Problem: Cardiac: Goal: Ability to maintain vital signs within normal range will improve Outcome: Progressing Problem: Health Behavior: Goal: Understanding of discharge needs will improve Outcome: Progressing Problem: Lack of Knowledge: Goal: Ability to describe self-care measures that may prevent or decrease complications will improve Outcome: Progressing Goal: Knowledge of disease or condition will improve Outcome: Progressing Goal: Knowledge of the prescribed therapeutic regimen will improve Outcome: Progressing Goal: Knowledge of prevention and discharge planning will improve Outcome: Progressing Problem: Coping: Goal: Ability to adjust to condition or change in health will improve Outcome: Progressing Problem: Fluid Volume: Goal: Ability to maintain a balanced intake and output will improve Outcome: Progressing Problem: Health Behavior: Goal: Ability to identify and alter actions that are detrimental to health will improve Outcome: Progressing Goal: Ability to identify and utilize available resources and services will improve Outcome: Progressing Goal: Ability to manage health-related needs will improve Outcome: Progressing Problem: Nutritional: Goal: Maintenance of adequate nutrition will improve Outcome: Progressing Goal: Progress toward achieving an optimal weight will improve Outcome: Progressing Problem: Physical Regulation: Goal: Complications related to the disease process, condition or treatment will be avoided or minimized Outcome: Progressing Goal: Diagnostic test results will improve Outcome: Progressing Problem: Skin Integrity: Goal: Risk for impaired skin integrity will decrease Outcome: Progressing Problem: Lack of Knowledge: Goal: Knowledge of diagnostic tests will improve Outcome: Progressing Goal: Knowledge of the prescribed therapeutic regimen will improve Outcome: Progressing Problem: Fluid Volume: Goal: Maintenance of adequate hydration will improve Outcome: Progressing Problem: Respiratory: Goal: Ability to achieve and maintain a regular respiratory rate will improve Outcome: Progressing Goal: Ability to maintain a clear airway will improve Outcome: Progressing Goal: Ability to maintain normal pulse oximetry readings will improve Outcome: Progressing Goal: Ability to maintain arterial blood gas levels within normal range will improve Outcome: Progressing Goal: Verbalizations of increased ease of respirations will increase Outcome: Progressing Problem: Skin Integrity: Goal: Skin integrity will be supported Outcome: Progressing Problem: Activity: Goal: Mobility will improve Outcome: Progressing Problem: Lack of Knowledge: Goal: Understanding of ways to prevent future skin breakdown will improve Outcome: Progressing Goal: Ability to identify appropriate dietary choices will improve Outcome: Progressing Problem: Nutritional: Goal: Dietary intake will improve Outcome: Progressing Goal: Ability to maintain a balanced intake and output will improve Outcome: Progressing Problem: Skin Integrity: Goal: Risk for impaired skin integrity will decrease Outcome: Progressing Goal: Ability to demonstrate warm and dry skin will improve Outcome: Progressing Goal: Circulation will improve to fullest extent possible Outcome: Progressing Problem: Lack of Knowledge: Goal: Knowledge of risk factors and measures for prevention of condition will improve Outcome: Progressing Problem: Coping: Goal: Psychosocial and spiritual needs will be supported Outcome: Progressing Problem: Physical Regulation: Goal: Spread of further infection will be prevented Outcome: Progressing Problem: Respiratory: Goal: Will maintain a patent airway Outcome: Progressing Goal: Complications related to the disease process, condition or treatment will be avoided or minimized Outcome: Progressing Goals: Clinical Goals for the Shift: maintain stable VS, monitor O2, prevent falls. 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 maninst[place] comfort/safety Summary: Problem: Lack of Knowledge: Goal: Ability to state ways to decrease the risk of falls will improve Outcome: Progressing Problem: Safety: Goal: Will remain free from falls Outcome: Progressing Goal: Will remain free from injury from falls Outcome: Progressing Goal: Will remain free from falls and injury in home environment Outcome: Progressing Problem: Lack of Knowledge: Goal: Knowledge of risk factors and measures for prevention of condition will improve Outcome: Progressing Problem: Physical Regulation: Goal: Spread of further infection will be prevented Outcome: Progressing Goal: Complications related to the disease process, condition or treatment will be avoided or minimized Outcome: Progressing Problem: Cardiac: Goal: Ability to maintain vital signs within normal range will improve Outcome: Progressing Problem: Health Behavior: Goal: Understanding of discharge needs will improve Outcome: Progressing Problem: Lack of Knowledge: Goal: Ability to describe self-care measures that may prevent or decrease complications will improve Outcome: Progressing Goal: Knowledge of disease or condition will improve Outcome: Progressing Goal: Knowledge of the prescribed therapeutic regimen will improve Outcome: Progressing Goal: Knowledge of prevention and discharge planning will improve Outcome: Progressing Problem: Coping: Goal: Ability to adjust to condition or change in health will improve Outcome: Progressing Problem: Fluid Volume: Goal: Ability to maintain a balanced intake and output will improve Outcome: Progressing Problem: Health Behavior: Goal: Ability to identify and alter actions that are detrimental to health will improve Outcome: Progressing Goal: Ability to identify and utilize available resources and services will improve Outcome: Progressing Goal: Ability to manage health-related needs will improve Outcome: Progressing Problem: Nutritional: Goal: Maintenance of adequate nutrition will improve Outcome: Progressing Goal: Progress toward achieving an optimal weight will improve Outcome: Progressing Problem: Physical Regulation: Goal: Complications related to the disease process, condition or treatment will be avoided or minimized Outcome: Progressing Goal: Diagnostic test results will improve Outcome: Progressing Problem: Skin Integrity: Goal: Risk for impaired skin integrity will decrease Outcome: Progressing Problem: Lack of Knowledge: Goal: Knowledge of diagnostic tests will improve Outcome: Progressing Goal: Knowledge of the prescribed therapeutic regimen will improve Outcome: Progressing Problem: Fluid Volume: Goal: Maintenance of adequate hydration will improve Outcome: Progressing Problem: Respiratory: Goal: Ability to achieve and maintain a regular respiratory rate will improve Outcome: Progressing Goal: Ability to maintain a clear airway will improve Outcome: Progressing Goal: Ability to maintain normal pulse oximetry readings will improve Outcome: Progressing Goal: Ability to maintain arterial blood gas levels within normal range will improve Outcome: Progressing Goal: Verbalizations of increased ease of respirations will increase Outcome: Progressing Problem: Skin Integrity: Goal: Skin integrity will be supported Outcome: Progressing Problem: Activity: Goal: Mobility will improve Outcome: Progressing Problem: Lack of Knowledge: Goal: Understanding of ways to prevent future skin breakdown will improve Outcome: Progressing Goal: Ability to identify appropriate dietary choices will improve Outcome: Progressing Problem: Nutritional: Goal: Dietary intake will improve Outcome: Progressing Goal: Ability to maintain a balanced intake and output will improve Outcome: Progressing Problem: Skin Integrity: Goal: Risk for impaired skin integrity will decrease Outcome: Progressing Goal: Ability to demonstrate warm and dry skin will improve Outcome: Progressing Goal: Circulation will improve to fullest extent possible Outcome: Progressing Problem: Lack of Knowledge: Goal: Knowledge of risk factors and measures for prevention of condition will improve Outcome: Progressing Problem: Coping: Goal: Psychosocial and spiritual needs will be supported Outcome: Progressing Problem: Physical Regulation: Goal: Spread of further infection will be prevented Outcome: Progressing Problem: Respiratory: Goal: Will maintain a patent airway Outcome: Progressing Goal: Complications related to the disease process, condition or treatment will be avoided or minimized 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 * Plan of Care - Caroline Landis RN - 05/04/2021 5:25 AM CST Problem: Lack of Knowledge: Goal: Ability to state ways to decrease the risk of falls will improve Outcome: Progressing Problem: Safety: Goal: Will remain free from falls Outcome: Progressing Goal: Will remain free from injury from falls Outcome: Progressing Goal: Will remain free from falls and injury in home environment Outcome: Progressing Problem: Lack of Knowledge: Goal: Knowledge of risk factors and measures for prevention of condition will improve Outcome: Progressing Problem: Physical Regulation: Goal: Spread of further infection will be prevented Outcome: Progressing Goal: Complications related to the disease process, condition or treatment will be avoided or minimized Outcome: Progressing Problem: Cardiac: Goal: Ability to maintain vital signs within normal range will improve Outcome: Progressing Problem: Health Behavior: Goal: Understanding of discharge needs will improve Outcome: Progressing Problem: Lack of Knowledge: Goal: Ability to describe self-care measures that may prevent or decrease complications will improve Outcome: Progressing Goal: Knowledge of disease or condition will improve Outcome: Progressing Goal: Knowledge of the prescribed therapeutic regimen will improve Outcome: Progressing Goal: Knowledge of prevention and discharge planning will improve Outcome: Progressing Problem: Coping: Goal: Ability to adjust to condition or change in health will improve Outcome: Progressing Problem: Fluid Volume: Goal: Ability to maintain a balanced intake and output will improve Outcome: Progressing Problem: Health Behavior: Goal: Ability to identify and alter actions that are detrimental to health will improve Outcome: Progressing Goal: Ability to identify and utilize available resources and services will improve Outcome: Progressing Goal: Ability to manage health-related needs will improve Outcome: Progressing Problem: Nutritional: Goal: Maintenance of adequate nutrition will improve Outcome: Progressing Goal: Progress toward achieving an optimal weight will improve Outcome: Progressing Problem: Physical Regulation: Goal: Complications related to the disease process, condition or treatment will be avoided or minimized Outcome: Progressing Goal: Diagnostic test results will improve Outcome: Progressing Problem: Skin Integrity: Goal: Risk for impaired skin integrity will decrease Outcome: Progressing Problem: Lack of Knowledge: Goal: Knowledge of diagnostic tests will improve Outcome: Progressing Goal: Knowledge of the prescribed therapeutic regimen will improve Outcome: Progressing Problem: Fluid Volume: Goal: Maintenance of adequate hydration will improve Outcome: Progressing Problem: Respiratory: Goal: Ability to achieve and maintain a regular respiratory rate will improve Outcome: Progressing Goal: Ability to maintain a clear airway will improve Outcome: Progressing Goal: Ability to maintain normal pulse oximetry readings will improve Outcome: Progressing Goal: Ability to maintain arterial blood gas levels within normal range will improve Outcome: Progressing Goal: Verbalizations of increased ease of respirations will increase Outcome: Progressing Problem: Skin Integrity: Goal: Skin integrity will be supported Outcome: Progressing Problem: Activity: Goal: Mobility will improve Outcome: Progressing Problem: Lack of Knowledge: Goal: Understanding of ways to prevent future skin breakdown will improve Outcome: Progressing Goal: Ability to identify appropriate dietary choices will improve Outcome: Progressing Problem: Nutritional: Goal: Dietary intake will improve Outcome: Progressing Goal: Ability to maintain a balanced intake and output will improve Outcome: Progressing Problem: Skin Integrity: Goal: Risk for impaired skin integrity will decrease Outcome: Progressing Goal: Ability to demonstrate warm and dry skin will improve Outcome: Progressing Goal: Circulation will improve to fullest extent possible Outcome: Progressing Problem: Lack of Knowledge: Goal: Knowledge of risk factors and measures for prevention of condition will improve Outcome: Progressing Problem: Coping: Goal: Psychosocial and spiritual needs will be supported Outcome: Progressing Problem: Physical Regulation: Goal: Spread of further infection will be prevented Outcome: Progressing Problem: Respiratory: Goal: Will maintain a patent airway Outcome: Progressing Goal: Complications related to the disease process, condition or treatment will be avoided or minimized Outcome: Progressing Goals: Clinical Goals for the Shift: (Self prone & maintaine O@ 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 - Caroline Landis RN - 05/03/2021 3:17 AM CDT Problem: Lack of Knowledge: Goal: Ability to state ways to decrease the risk of falls will improve Outcome: Progressing Problem: Safety: Goal: Will remain free from falls Outcome: Progressing Goal: Will remain free from injury from falls Outcome: Progressing Goal: Will remain free from falls and injury in home environment Outcome: Progressing Problem: Lack of Knowledge: Goal: Knowledge of risk factors and measures for prevention of condition will improve Outcome: Progressing Problem: Physical Regulation: Goal: Spread of further infection will be prevented Outcome: Progressing Goal: Complications related to the disease process, condition or treatment will be avoided or minimized Outcome: Progressing Problem: Cardiac: Goal: Ability to maintain vital signs within normal range will improve Outcome: Progressing Problem: Health Behavior: Goal: Understanding of discharge needs will improve Outcome: Progressing Problem: Lack of Knowledge: Goal: Ability to describe self-care measures that may prevent or decrease complications will improve Outcome: Progressing Goal: Knowledge of disease or condition will improve Outcome: Progressing Goal: Knowledge of the prescribed therapeutic regimen will improve Outcome: Progressing Goal: Knowledge of prevention and discharge planning will improve Outcome: Progressing Problem: Coping: Goal: Ability to adjust to condition or change in health will improve Outcome: Progressing Problem: Fluid Volume: Goal: Ability to maintain a balanced intake and output will improve Outcome: Progressing Problem: Health Behavior: Goal: Ability to identify and alter actions that are detrimental to health will improve Outcome: Progressing Goal: Ability to identify and utilize available resources and services will improve Outcome: Progressing Goal: Ability to manage health-related needs will improve Outcome: Progressing Problem: Nutritional: Goal: Maintenance of adequate nutrition will improve Outcome: Progressing Goal: Progress toward achieving an optimal weight will improve Outcome: Progressing Problem: Physical Regulation: Goal: Complications related to the disease process, condition or treatment will be avoided or minimized Outcome: Progressing Goal: Diagnostic test results will improve Outcome: Progressing Problem: Skin Integrity: Goal: Risk for impaired skin integrity will decrease Outcome: Progressing Problem: Lack of Knowledge: Goal: Knowledge of diagnostic tests will improve Outcome: Progressing Goal: Knowledge of the prescribed therapeutic regimen will improve Outcome: Progressing Problem: Fluid Volume: Goal: Maintenance of adequate hydration will improve Outcome: Progressing Problem: Respiratory: Goal: Ability to achieve and maintain a regular respiratory rate will improve Outcome: Progressing Goal: Ability to maintain a clear airway will improve Outcome: Progressing Goal: Ability to maintain normal pulse oximetry readings will improve Outcome: Progressing Goal: Ability to maintain arterial blood gas levels within normal range will improve Outcome: Progressing Goal: Verbalizations of increased ease of respirations will increase Outcome: Progressing Problem: Skin Integrity: Goal: Skin integrity will be supported Outcome: Progressing Problem: Activity: Goal: Mobility will improve Outcome: Progressing Problem: Lack of Knowledge: Goal: Understanding of ways to prevent future skin breakdown will improve Outcome: Progressing Goal: Ability to identify appropriate dietary choices will improve Outcome: Progressing Problem: Nutritional: Goal: Dietary intake will improve Outcome: Progressing Goal: Ability to maintain a balanced intake and output will improve Outcome: Progressing Problem: Skin Integrity: Goal: Risk for impaired skin integrity will decrease Outcome: Progressing Goal: Ability to demonstrate warm and dry skin will improve Outcome: Progressing Goal: Circulation will improve to fullest extent possible Outcome: Progressing Problem: Lack of Knowledge: Goal: Knowledge of risk factors and measures for prevention of condition will improve Outcome: Progressing Problem: Coping: Goal: Psychosocial and spiritual needs will be supported Outcome: Progressing Problem: Physical Regulation: Goal: Spread of further infection will be prevented Outcome: Progressing Problem: Respiratory: Goal: Will maintain a patent airway Outcome: Progressing Goal: Complications related to the disease process, condition or treatment will be avoided or minimized Outcome: Progressing Goals: Clinical Goals for the Shift: Maintain O2 at 90% or greater on 6L * Plan of Care - Shaina Ochoa COTA - 05/02/2021 11:46 AM CDT Problem: OT Misc Goal: OT [facility] - Mis 4 Description: Patient will complete toilet transfer Independently one time with equipment as needed Outcome: Progressing Note: Bed Mobility: SUPINE TO EOB MIN ASSIST, EOB TO SUPINE SPV . PATIENT REQUIRED 2(MIN) V/C FOR PLB ANDPACING SELF WITH TASKS Transfer(s): DECLINED OOB Goal: OT [facility] - Mis 5 Description: Patient will complete oxidative muscle exercises with min verbal cues to improve tolerance for ADLs one time Outcome: Progressing Note: UE THERAPEUTIC EXERCISES: EXERCISE TYPE: OXIDATIVE HEP MUSCLE GROUP(S): 2 NUMBER OF REPETITIONS: 1 MIN TOLERATED WITH IMPROVEMENT IN 02 SATURATIONS TO 90% ASSIST LEVEL: MIN VERBAL CUES LOCATION OF COMPLETION: EOB TOLERANCE: NO UNDUE PAIN, MIN C/O PAIN- COMPLETED WITH 2LB WEIGHT Goal: OT [facility] - [facility] [place] 6 Description: Patient will verbalize/demonstrate 4-5 energy conservation techniques independently toimprove tolerance for ADLs one time Outcome: Progressing Note: Bed Mobility: SUPINE TO EOB MIN ASSIST, EOB TO SUPINE SPV . PATIENT REQUIRED 2(MIN) V/C FOR PLB AND PACING SELF WITH TASKS MAGALI Maloney 05/02/21 11:47 AM * Plan of Care - Kaleigh Aldrich RN - 05/02/2021 3:00 AM CDT Goals: Clinical Goals for the Shift: Stable VS, Maintain patent airway clearance, Decrease oxygen demand, Remain free of falls/injury Summary: Problem: Lack of Knowledge: Goal: Ability to state ways to decrease the risk of falls will improve Outcome: Progressing Problem: Safety: Goal: Will remain free from falls Outcome: Progressing Goal: Will remain free from injury from falls Outcome: Progressing Goal: Will remain free from falls and injury in home environment Outcome: Progressing Problem: Lack of Knowledge: Goal: Knowledge of risk factors and measures for prevention of condition will improve Outcome: Progressing Problem: Physical Regulation: Goal: Spread of further infection will be prevented Outcome: Progressing Goal: Complications related to the disease process, condition or treatment will be avoided or minimized Outcome: Progressing Problem: Cardiac: Goal: Ability to maintain vital signs within normal range will improve Outcome: Progressing Problem: Health Behavior: Goal: Understanding of discharge needs will improve Outcome: Progressing Problem: Lack of Knowledge: Goal: Ability to describe self-care measures that may prevent or decrease complications will improve Outcome: Progressing Goal: Knowledge of disease or condition will improve Outcome: Progressing Goal: Knowledge of the prescribed therapeutic regimen will improve Outcome: Progressing Goal: Knowledge of prevention and discharge planning will improve Outcome: Progressing Problem: Coping: Goal: Ability to adjust to condition or change in health will improve Outcome: Progressing Problem: Fluid Volume: Goal: Ability to maintain a balanced intake and output will improve Outcome: Progressing Problem: Health Behavior: Goal: Ability to identify and alter actions that are detrimental to health will improve Outcome: Progressing Goal: Ability to identify and utilize available resources and services will improve Outcome: Progressing Goal: Ability to manage health-related needs will improve Outcome: Progressing Problem: Nutritional: Goal: Maintenance of adequate nutrition will improve Outcome: Progressing Goal: Progress toward achieving an optimal weight will improve Outcome: Progressing Problem: Physical Regulation: Goal: Complications related to the disease process, condition or treatment will be avoided or minimized Outcome: Progressing Goal: Diagnostic test results will improve Outcome: Progressing Problem: Skin Integrity: Goal: Risk for impaired skin integrity will decrease Outcome: Progressing Problem: Lack of Knowledge: Goal: Knowledge of diagnostic tests will improve Outcome: Progressing Goal: Knowledge of the prescribed therapeutic regimen will improve Outcome: Progressing Problem: Fluid Volume: Goal: Maintenance of adequate hydration will improve Outcome: Progressing Problem: Respiratory: Goal: Ability to achieve and maintain a regular respiratory rate will improve Outcome: Progressing Goal: Ability to maintain a clear airway will improve Outcome: Progressing Goal: Ability to maintain normal pulse oximetry readings will improve Outcome: Progressing Goal: Ability to maintain arterial blood gas levels within normal range will improve Outcome: Progressing Goal: Verbalizations of increased ease of respirations will increase Outcome: Progressing Problem: Skin Integrity: Goal: Skin integrity will be supported Outcome: Progressing Problem: Activity: Goal: Mobility will improve Outcome: Progressing Problem: Lack of Knowledge: Goal: Understanding of ways to prevent future skin breakdown will improve Outcome: Progressing Goal: Ability to identify appropriate dietary choices will improve Outcome: Progressing Problem: Nutritional: Goal: Dietary intake will improve Outcome: Progressing Goal: Ability to maintain a balanced intake and output will improve Outcome: Progressing Problem: Skin Integrity: Goal: Risk for impaired skin integrity will decrease Outcome: Progressing Goal: Ability to demonstrate warm and dry skin will improve Outcome: Progressing Goal: Circulation will improve to fullest extent possible Outcome: Progressing Problem: Lack of Knowledge: Goal: Knowledge of risk factors and measures for prevention of condition will improve Outcome: Progressing Problem: Coping: Goal: Psychosocial and spiritual needs will be supported Outcome: Progressing Problem: Physical Regulation: Goal: Spread of further infection will be prevented Outcome: Progressing Problem: Respiratory: Goal: Will maintain a patent airway Outcome: Progressing Goal: Complications related to the disease process, condition or treatment will be avoided or minimized Outcome: Progressing * Plan of Care - Jyoti Sahu RN - 05/01/2021 1:52 PM CDT Weaning oxygen. Will continue to follow for discharge plan. Jyoti Sahu RN Case Manager [phone] * Plan of Care - Madina Busby RN - 05/01/2021 7:38 AM CDT Goals: Clinical Goals for the Shift: Stable VS, Maintain patent airway clearance, Decrease oxygen demand, Remain free of falls/injury Problem: Lack of Knowledge: Goal: Ability to state ways to decrease the risk of falls will improve Outcome: Progressing Problem: Safety: Goal: Will remain free from falls Outcome: Progressing Problem: Lack of Knowledge: Goal: Knowledge of risk factors and measures for prevention of condition will improve Outcome: Progressing Problem: Physical Regulation: Goal: Spread of further infection will be prevented Outcome: Progressing Goal: Complications related to the disease process, condition or treatment will be avoided or minimized Outcome: Progressing Problem: Cardiac: Goal: Ability to maintain vital signs within normal range will improve Outcome: Progressing Problem: Health Behavior: Goal: Understanding of discharge needs will improve Outcome: Progressing Problem: Lack of Knowledge: Goal: Ability to describe self-care measures that may prevent or decrease complications will improve Outcome: Progressing Goal: Knowledge of disease or condition will improve Outcome: Progressing Goal: Knowledge of the prescribed therapeutic regimen will improve Outcome: Progressing Goal: Knowledge of prevention and discharge planning will improve Outcome: Progressing Problem: Coping: Goal: Ability to adjust to condition or change in health will improve Outcome: Progressing Problem: Fluid Volume: Goal: Ability to maintain a balanced intake and output will improve Outcome: Progressing Problem: Health Behavior: Goal: Ability to identify and alter actions that are detrimental to health will improve Outcome: Progressing Goal: Ability to identify and utilize available resources and services will improve Outcome: Progressing Goal: Ability to manage health-related needs will improve Outcome: Progressing Problem: Nutritional: Goal: Maintenance of adequate nutrition will improve Outcome: Progressing Goal: Progress toward achieving an optimal weight will improve Outcome: Progressing Problem: Physical Regulation: Goal: Complications related to the disease process, condition or treatment will be avoided or minimized Outcome: Progressing Goal: Diagnostic test results will improve Outcome: Progressing Problem: Skin Integrity: Goal: Risk for impaired skin integrity will decrease Outcome: Progressing Problem: Lack of Knowledge: Goal: Knowledge of diagnostic tests will improve Outcome: Progressing Goal: Knowledge of the prescribed therapeutic regimen will improve Outcome: Progressing Problem: Fluid Volume: Goal: Maintenance of adequate hydration will improve Outcome: Progressing Problem: Respiratory: Goal: Ability to achieve and maintain a regular respiratory rate will improve Outcome: Progressing Goal: Ability to maintain a clear airway will improve Outcome: Progressing Goal: Ability to maintain normal pulse oximetry readings will improve Outcome: Progressing Goal: Verbalizations of increased ease of respirations will increase Outcome: Progressing Problem: Skin Integrity: Goal: Skin integrity will be supported Outcome: Progressing Problem: Activity: Goal: Mobility will improve Outcome: Progressing Problem: Lack of Knowledge: Goal: Understanding of ways to prevent future skin breakdown will improve Outcome: Progressing Goal: Ability to identify appropriate dietary choices will improve Outcome: Progressing Problem: Nutritional: Goal: Dietary intake will improve Outcome: Progressing Goal: Ability to maintain a balanced intake and output will improve Outcome: Progressing Problem: Skin Integrity: Goal: Risk for impaired skin integrity will decrease Outcome: Progressing Goal: Ability to demonstrate warm and dry skin will improve Outcome: Progressing Goal: Circulation will improve to fullest extent possible Outcome: Progressing Problem: Lack of Knowledge: Goal: Knowledge of risk factors and measures for prevention of condition will improve Outcome: Progressing Problem: Coping: Goal: Psychosocial and spiritual needs will be supported Outcome: Progressing Problem: Physical Regulation: Goal: Spread of further infection will be prevented Outcome: Progressing Problem: Respiratory: Goal: Will maintain a patent airway Outcome: Progressing Goal: Complications related to the disease process, condition or treatment will be avoided or minimized Outcome: Progressing * Plan of Care - Kaleigh Aldrich RN - 05/01/2021 3:27 AM CDT Goals: Clinical Goals for the Shift: Stable VS, Maintain patent airway clearance, Decrease oxygen demand, Remain free of falls/injury Summary: Problem: Lack of Knowledge: Goal: Ability to state ways to decrease the risk of falls will improve Outcome: Progressing Problem: Safety: Goal: Will remain free from falls Outcome: Progressing Goal: Will remain free from injury from falls Outcome: Progressing Goal: Will remain free from falls and injury in home environment Outcome: Progressing Problem: Lack of Knowledge: Goal: Knowledge of risk factors and measures for prevention of condition will improve Outcome: Progressing Problem: Physical Regulation: Goal: Spread of further infection will be prevented Outcome: Progressing Goal: Complications related to the disease process, condition or treatment will be avoided or minimized Outcome: Progressing Problem: Cardiac: Goal: Ability to maintain vital signs within normal range will improve Outcome: Progressing Problem: Health Behavior: Goal: Understanding of discharge needs will improve Outcome: Progressing Problem: Lack of Knowledge: Goal: Ability to describe self-care measures that may prevent or decrease complications will improve Outcome: Progressing Goal: Knowledge of disease or condition will improve Outcome: Progressing Goal: Knowledge of the prescribed therapeutic regimen will improve Outcome: Progressing Goal: Knowledge of prevention and discharge planning will improve Outcome: Progressing Problem: Coping: Goal: Ability to adjust to condition or change in health will improve Outcome: Progressing Problem: Fluid Volume: Goal: Ability to maintain a balanced intake and output will improve Outcome: Progressing Problem: Health Behavior: Goal: Ability to identify and alter actions that are detrimental to health will improve Outcome: Progressing Goal: Ability to identify and utilize available resources and services will improve Outcome: Progressing Goal: Ability to manage health-related needs will improve Outcome: Progressing Problem: Nutritional: Goal: Maintenance of adequate nutrition will improve Outcome: Progressing Goal: Progress toward achieving an optimal weight will improve Outcome: Progressing Problem: Physical Regulation: Goal: Complications related to the disease process, condition or treatment will be avoided or minimized Outcome: Progressing Goal: Diagnostic test results will improve Outcome: Progressing Problem: Skin Integrity: Goal: Risk for impaired skin integrity will decrease Outcome: Progressing Problem: Lack of Knowledge: Goal: Knowledge of diagnostic tests will improve Outcome: Progressing Goal: Knowledge of the prescribed therapeutic regimen will improve Outcome: Progressing Problem: Fluid Volume: Goal: Maintenance of adequate hydration will improve Outcome: Progressing Problem: Respiratory: Goal: Ability to achieve and maintain a regular respiratory rate will improve Outcome: Progressing Goal: Ability to maintain a clear airway will improve Outcome: Progressing Goal: Ability to maintain normal pulse oximetry readings will improve Outcome: Progressing Goal: Ability to maintain arterial blood gas levels within normal range will improve Outcome: Progressing Goal: Verbalizations of increased ease of respirations will increase Outcome: Progressing Problem: Skin Integrity: Goal: Skin integrity will be supported Outcome: Progressing Problem: Activity: Goal: Mobility will improve Outcome: Progressing Problem: Lack of Knowledge: Goal: Understanding of ways to prevent future skin breakdown will improve Outcome: Progressing Goal: Ability to identify appropriate dietary choices will improve Outcome: Progressing Problem: Nutritional: Goal: Dietary intake will improve Outcome: Progressing Goal: Ability to maintain a balanced intake and output will improve Outcome: Progressing Problem: Skin Integrity: Goal: Risk for impaired skin integrity will decrease Outcome: Progressing Goal: Ability to demonstrate warm and dry skin will improve Outcome: Progressing Goal: Circulation will improve to fullest extent possible Outcome: Progressing Problem: Lack of Knowledge: Goal: Knowledge of risk factors and measures for prevention of condition will improve Outcome: Progressing Problem: Coping: Goal: Psychosocial and spiritual needs will be supported Outcome: Progressing Problem: Physical Regulation: Goal: Spread of further infection will be prevented Outcome: Progressing Problem: Respiratory: Goal: Will maintain a patent airway Outcome: Progressing Goal: Complications related to the disease process, condition or treatment will be avoided or minimized Outcome: Progressing * Plan of Mary - Anitha Chin RN - 04/30/2021 6:14 PM CDT Goals: Clinical Goals for the Shift: VSS, maintain o2, comfort and safety Summary: complaint of headache, prn tylenol given. Currently on HF 12L O2. Call light within reach. Problem: Lack of Knowledge: Goal: Ability to state ways to decrease the risk of falls will improve Outcome: Progressing Problem: Safety: Goal: Will remain free from falls Outcome: Progressing Goal: Will remain free from injury from falls Outcome: Progressing Goal: Will remain free from falls and injury in home environment Outcome: Progressing Problem: Lack of Knowledge: Goal: Knowledge of risk factors and measures for prevention of condition will improve Outcome: Progressing Problem: Physical Regulation: Goal: Spread of further infection will be prevented Outcome: Progressing Goal: Complications related to the disease process, condition or treatment will be avoided or minimized Outcome: Progressing Problem: Cardiac: Goal: Ability to maintain vital signs within normal range will improve Outcome: Progressing Problem: Health Behavior: Goal: Understanding of discharge needs will improve Outcome: Progressing Problem: Lack of Knowledge: Goal: Ability to describe self-care measures that may prevent or decrease complications will improve Outcome: Progressing Goal: Knowledge of disease or condition will improve Outcome: Progressing Goal: Knowledge of the prescribed therapeutic regimen will improve Outcome: Progressing Goal: Knowledge of prevention and discharge planning will improve Outcome: Progressing Problem: Coping: Goal: Ability to adjust to condition or change in health will improve Outcome: Progressing Problem: Fluid Volume: Goal: Ability to maintain a balanced intake and output will improve Outcome: Progressing Problem: Health Behavior: Goal: Ability to identify and alter actions that are detrimental to health will improve Outcome: Progressing Goal: Ability to identify and utilize available resources and services will improve Outcome: Progressing Goal: Ability to manage health-related needs will improve Outcome: Progressing Problem: Nutritional: Goal: Maintenance of adequate nutrition will improve Outcome: Progressing Goal: Progress toward achieving an optimal weight will improve Outcome: Progressing Problem: Physical Regulation: Goal: Complications related to the disease process, condition or treatment will be avoided or minimized Outcome: Progressing Goal: Diagnostic test results will improve Outcome: Progressing Problem: Skin Integrity: Goal: Risk for impaired skin integrity will decrease Outcome: Progressing Problem: Lack of Knowledge: Goal: Knowledge of diagnostic tests will improve Outcome: Progressing Goal: Knowledge of the prescribed therapeutic regimen will improve Outcome: Progressing Problem: Fluid Volume: Goal: Maintenance of adequate hydration will improve Outcome: Progressing Problem: Respiratory: Goal: Ability to achieve and maintain a regular respiratory rate will improve Outcome: Progressing Goal: Ability to maintain a clear airway will improve Outcome: Progressing Goal: Ability to maintain normal pulse oximetry readings will improve Outcome: Progressing Goal: Ability to maintain arterial blood gas levels within normal range will improve Outcome: Progressing Goal: Verbalizations of increased ease of respirations will increase Outcome: Progressing Problem: Skin Integrity: Goal: Skin integrity will be supported Outcome: Progressing Problem: Activity: Goal: Mobility will improve Outcome: Progressing Problem: Lack of Knowledge: Goal: Understanding of ways to prevent future skin breakdown will improve Outcome: Progressing Goal: Ability to identify appropriate dietary choices will improve Outcome: Progressing Problem: Nutritional: Goal: Dietary intake will improve Outcome: Progressing Goal: Ability to maintain a balanced intake and output will improve Outcome: Progressing Problem: Skin Integrity: Goal: Risk for impaired skin integrity will decrease Outcome: Progressing Goal: Ability to demonstrate warm and dry skin will improve Outcome: Progressing Goal: Circulation will improve to fullest extent possible Outcome: Progressing Problem: Lack of Knowledge: Goal: Knowledge of risk factors and measures for prevention of condition will improve Outcome: Progressing Problem: Coping: Goal: Psychosocial and spiritual needs will be supported Outcome: Progressing Problem: Physical Regulation: Goal: Spread of further infection will be prevented Outcome: Progressing Problem: Respiratory: Goal: Will maintain a patent airway Outcome: Progressing Goal: Complications related to the disease process, condition or treatment will be avoided or minimized Outcome: Progressing * Plan of Care - Jyoti Sahu RN - 04/30/2021 4:07 PM CDT Patient is on 15L high flow oxygen. PT seeing patient. Jyoti Sahu RN Case Manager [phone] * Plan of Care - Deborah Rahman RRT - 04/30/2021 10:43 AM CDT Patient has optiflow on standby but has been doing well and no complaints of SOB on 15L HFNC (except when using restroom per patient). Continue to wean O2 as tolerated. * Plan of Care - Delilah Hall RN - 04/30/2021 2:09 AM CDT Goals: Clinical Goals for the Shift: VSS, maintain patent airway, remain free of falls/injury Summary: Problem: Lack of Knowledge: Goal: Ability to state ways to decrease the risk of falls will improve Outcome: Progressing Problem: Safety: Goal: Will remain free from falls Outcome: Progressing Goal: Will remain free from injury from falls Outcome: Progressing Goal: Will remain free from falls and injury in home environment Outcome: Progressing Problem: Lack of Knowledge: Goal: Knowledge of risk factors and measures for prevention of condition will improve Outcome: Progressing Problem: Physical Regulation: Goal: Spread of further infection will be prevented Outcome: Progressing Goal: Complications related to the disease process, condition or treatment will be avoided or minimized Outcome: Progressing Problem: Cardiac: Goal: Ability to maintain vital signs within normal range will improve Outcome: Progressing Problem: Health Behavior: Goal: Understanding of discharge needs will improve Outcome: Progressing Problem: Lack of Knowledge: Goal: Ability to describe self-care measures that may prevent or decrease complications will improve Outcome: Progressing Goal: Knowledge of disease or condition will improve Outcome: Progressing Goal: Knowledge of the prescribed therapeutic regimen will improve Outcome: Progressing Goal: Knowledge of prevention and discharge planning will improve Outcome: Progressing Problem: Coping: Goal: Ability to adjust to condition or change in health will improve Outcome: Progressing Problem: Fluid Volume: Goal: Ability to maintain a balanced intake and output will improve Outcome: Progressing Problem: Health Behavior: Goal: Ability to identify and alter actions that are detrimental to health will improve Outcome: Progressing Goal: Ability to identify and utilize available resources and services will improve Outcome: Progressing Goal: Ability to manage health-related needs will improve Outcome: Progressing Problem: Nutritional: Goal: Maintenance of adequate nutrition will improve Outcome: Progressing Goal: Progress toward achieving an optimal weight will improve Outcome: Progressing Problem: Physical Regulation: Goal: Complications related to the disease process, condition or treatment will be avoided or minimized Outcome: Progressing Goal: Diagnostic test results will improve Outcome: Progressing Problem: Skin Integrity: Goal: Risk for impaired skin integrity will decrease Outcome: Progressing Problem: Lack of Knowledge: Goal: Knowledge of diagnostic tests will improve Outcome: Progressing Goal: Knowledge of the prescribed therapeutic regimen will improve Outcome: Progressing Problem: Fluid Volume: Goal: Maintenance of adequate hydration will improve Outcome: Progressing Problem: Respiratory: Goal: Ability to achieve and maintain a regular respiratory rate will improve Outcome: Progressing Goal: Ability to maintain a clear airway will improve Outcome: Progressing Goal: Ability to maintain normal pulse oximetry readings will improve Outcome: Progressing Goal: Ability to maintain arterial blood gas levels within normal range will improve Outcome: Progressing Goal: Verbalizations of increased ease of respirations will increase Outcome: Progressing Problem: Skin Integrity: Goal: Skin integrity will be supported Outcome: Progressing Problem: Activity: Goal: Mobility will improve Outcome: Progressing Problem: Lack of Knowledge: Goal: Understanding of ways to prevent future skin breakdown will improve Outcome: Progressing Goal: Ability to identify appropriate dietary choices will improve Outcome: Progressing Problem: Nutritional: Goal: Dietary intake will improve Outcome: Progressing Goal: Ability to maintain a balanced intake and output will improve Outcome: Progressing Problem: Skin Integrity: Goal: Risk for impaired skin integrity will decrease Outcome: Progressing Goal: Ability to demonstrate warm and dry skin will improve Outcome: Progressing Goal: Circulation will improve to fullest extent possible Outcome: Progressing Problem: Lack of Knowledge: Goal: Knowledge of risk factors and measures for prevention of condition will improve Outcome: Progressing Problem: Coping: Goal: Psychosocial and spiritual needs will be supported Outcome: Progressing Problem: Physical Regulation: Goal: Spread of further infection will be prevented Outcome: Progressing Problem: Respiratory: Goal: Will maintain a patent airway Outcome: Progressing Goal: Complications related to the disease process, condition or treatment will be avoided or minimized Outcome: Progressing * Plan of Care - Anitha Chin RN - 04/29/2021 6:30 PM CDT Goals: Clinical Goals for the Shift: VSS, maintain o2, comfort and safety Summary: patient weaned to HF 10L O2, no complaint of pain. Call light within reach. Resting comfortably in bed. Problem: Lack of Knowledge: Goal: Ability to state ways to decrease the risk of falls will improve Outcome: Progressing Problem: Safety: Goal: Will remain free from falls Outcome: Progressing Goal: Will remain free from injury from falls Outcome: Progressing Goal: Will remain free from falls and injury in home environment Outcome: Progressing Problem: Lack of Knowledge: Goal: Knowledge of risk factors and measures for prevention of condition will improve Outcome: Progressing Problem: Physical Regulation: Goal: Spread of further infection will be prevented Outcome: Progressing Goal: Complications related to the disease process, condition or treatment will be avoided or minimized Outcome: Progressing Problem: Cardiac: Goal: Ability to maintain vital signs within normal range will improve Outcome: Progressing Problem: Health Behavior: Goal: Understanding of discharge needs will improve Outcome: Progressing Problem: Lack of Knowledge: Goal: Ability to describe self-care measures that may prevent or decrease complications will improve Outcome: Progressing Goal: Knowledge of disease or condition will improve Outcome: Progressing Goal: Knowledge of the prescribed therapeutic regimen will improve Outcome: Progressing Goal: Knowledge of prevention and discharge planning will improve Outcome: Progressing Problem: Coping: Goal: Ability to adjust to condition or change in health will improve Outcome: Progressing Problem: Fluid Volume: Goal: Ability to maintain a balanced intake and output will improve Outcome: Progressing Problem: Health Behavior: Goal: Ability to identify and alter actions that are detrimental to health will improve Outcome: Progressing Goal: Ability to identify and utilize available resources and services will improve Outcome: Progressing Goal: Ability to manage health-related needs will improve Outcome: Progressing Problem: Nutritional: Goal: Maintenance of adequate nutrition will improve Outcome: Progressing Goal: Progress toward achieving an optimal weight will improve Outcome: Progressing Problem: Physical Regulation: Goal: Complications related to the disease process, condition or treatment will be avoided or minimized Outcome: Progressing Goal: Diagnostic test results will improve Outcome: Progressing Problem: Skin Integrity: Goal: Risk for impaired skin integrity will decrease Outcome: Progressing Problem: Lack of Knowledge: Goal: Knowledge of diagnostic tests will improve Outcome: Progressing Goal: Knowledge of the prescribed therapeutic regimen will improve Outcome: Progressing Problem: Fluid Volume: Goal: Maintenance of adequate hydration will improve Outcome: Progressing Problem: Respiratory: Goal: Ability to achieve and maintain a regular respiratory rate will improve Outcome: Progressing Goal: Ability to maintain a clear airway will improve Outcome: Progressing Goal: Ability to maintain normal pulse oximetry readings will improve Outcome: Progressing Goal: Ability to maintain arterial blood gas levels within normal range will improve Outcome: Progressing Goal: Verbalizations of increased ease of respirations will increase Outcome: Progressing Problem: Skin Integrity: Goal: Skin integrity will be supported Outcome: Progressing Problem: Activity: Goal: Mobility will improve Outcome: Progressing Problem: Lack of Knowledge: Goal: Understanding of ways to prevent future skin breakdown will improve Outcome: Progressing Goal: Ability to identify appropriate dietary choices will improve Outcome: Progressing Problem: Nutritional: Goal: Dietary intake will improve Outcome: Progressing Goal: Ability to maintain a balanced intake and output will improve Outcome: Progressing Problem: Skin Integrity: Goal: Risk for impaired skin integrity will decrease Outcome: Progressing Goal: Ability to demonstrate warm and dry skin will improve Outcome: Progressing Goal: Circulation will improve to fullest extent possible Outcome: Progressing * Plan of Care - Delilah Hall RN - 04/29/2021 2:47 AM CDT Goals: Clinical Goals for the Shift: VSS, maintain patent airway, remain free of falls/injury Summary: Problem: Lack of Knowledge: Goal: Ability to state ways to decrease the risk of falls will improve Outcome: Progressing Problem: Safety: Goal: Will remain free from falls Outcome: Progressing Goal: Will remain free from injury from falls Outcome: Progressing Goal: Will remain free from falls and injury in home environment Outcome: Progressing Problem: Lack of Knowledge: Goal: Knowledge of risk factors and measures for prevention of condition will improve Outcome: Progressing Problem: Physical Regulation: Goal: Spread of further infection will be prevented Outcome: Progressing Goal: Complications related to the disease process, condition or treatment will be avoided or minimized Outcome: Progressing Problem: Cardiac: Goal: Ability to maintain vital signs within normal range will improve Outcome: Progressing Problem: Health Behavior: Goal: Understanding of discharge needs will improve Outcome: Progressing Problem: Lack of Knowledge: Goal: Ability to describe self-care measures that may prevent or decrease complications will improve Outcome: Progressing Goal: Knowledge of disease or condition will improve Outcome: Progressing Goal: Knowledge of the prescribed therapeutic regimen will improve Outcome: Progressing Goal: Knowledge of prevention and discharge planning will improve Outcome: Progressing Problem: Coping: Goal: Ability to adjust to condition or change in health will improve Outcome: Progressing Problem: Fluid Volume: Goal: Ability to maintain a balanced intake and output will improve Outcome: Progressing Problem: Health Behavior: Goal: Ability to identify and alter actions that are detrimental to health will improve Outcome: Progressing Goal: Ability to identify and utilize available resources and services will improve Outcome: Progressing Goal: Ability to manage health-related needs will improve Outcome: Progressing Problem: Nutritional: Goal: Maintenance of adequate nutrition will improve Outcome: Progressing Goal: Progress toward achieving an optimal weight will improve Outcome: Progressing Problem: Physical Regulation: Goal: Complications related to the disease process, condition or treatment will be avoided or minimized Outcome: Progressing Goal: Diagnostic test results will improve Outcome: Progressing Problem: Skin Integrity: Goal: Risk for impaired skin integrity will decrease Outcome: Progressing Problem: Lack of Knowledge: Goal: Knowledge of diagnostic tests will improve Outcome: Progressing Goal: Knowledge of the prescribed therapeutic regimen will improve Outcome: Progressing Problem: Fluid Volume: Goal: Maintenance of adequate hydration will improve Outcome: Progressing Problem: Respiratory: Goal: Ability to achieve and maintain a regular respiratory rate will improve Outcome: Progressing Goal: Ability to maintain a clear airway will improve Outcome: Progressing Goal: Ability to maintain normal pulse oximetry readings will improve Outcome: Progressing Goal: Ability to maintain arterial blood gas levels within normal range will improve Outcome: Progressing Goal: Verbalizations of increased ease of respirations will increase Outcome: Progressing Problem: Skin Integrity: Goal: Skin integrity will be supported Outcome: Progressing Problem: Activity: Goal: Mobility will improve Outcome: Progressing Problem: Lack of Knowledge: Goal: Understanding of ways to prevent future skin breakdown will improve Outcome: Progressing Goal: Ability to identify appropriate dietary choices will improve Outcome: Progressing Problem: Nutritional: Goal: Dietary intake will improve Outcome: Progressing Goal: Ability to maintain a balanced intake and output will improve Outcome: Progressing Problem: Skin Integrity: Goal: Risk for impaired skin integrity will decrease Outcome: Progressing Goal: Ability to demonstrate warm and dry skin will improve Outcome: Progressing Goal: Circulation will improve to fullest extent possible Outcome: Progressing * Plan of Care - Anitha Chin RN - 04/28/2021 6:24 PM CDT Goals: Clinical Goals for the Shift: VSS, maintain o2 saturation, comfort and safety Summary: aox4, no complaint of pain. optiflow 80% 50L. Last BM 06/28/20, encouraged to reposition q2h. Call light within reach. Room set for safety. Problem: Lack of Knowledge: Goal: Ability to state ways to decrease the risk of falls will improve Outcome: Progressing Problem: Safety: Goal: Will remain free from falls Outcome: Progressing Goal: Will remain free from injury from falls Outcome: Progressing Goal: Will remain free from falls and injury in home environment Outcome: Progressing Problem: Lack of Knowledge: Goal: Knowledge of risk factors and measures for prevention of condition will improve Outcome: Progressing Problem: Physical Regulation: Goal: Spread of further infection will be prevented Outcome: Progressing Goal: Complications related to the disease process, condition or treatment will be avoided or minimized Outcome: Progressing Problem: Cardiac: Goal: Ability to maintain vital signs within normal range will improve Outcome: Progressing Problem: Health Behavior: Goal: Understanding of discharge needs will improve Outcome: Progressing Problem: Lack of Knowledge: Goal: Ability to describe self-care measures that may prevent or decrease complications will improve Outcome: Progressing Goal: Knowledge of disease or condition will improve Outcome: Progressing Goal: Knowledge of the prescribed therapeutic regimen will improve Outcome: Progressing Goal: Knowledge of prevention and discharge planning will improve Outcome: Progressing Problem: Coping: Goal: Ability to adjust to condition or change in health will improve Outcome: Progressing Problem: Fluid Volume: Goal: Ability to maintain a balanced intake and output will improve Outcome: Progressing Problem: Health Behavior: Goal: Ability to identify and alter actions that are detrimental to health will improve Outcome: Progressing Goal: Ability to identify and utilize available resources and services will improve Outcome: Progressing Goal: Ability to manage health-related needs will improve Outcome: Progressing Problem: Nutritional: Goal: Maintenance of adequate nutrition will improve Outcome: Progressing Goal: Progress toward achieving an optimal weight will improve Outcome: Progressing Problem: Physical Regulation: Goal: Complications related to the disease process, condition or treatment will be avoided or minimized Outcome: Progressing Goal: Diagnostic test results will improve Outcome: Progressing Problem: Skin Integrity: Goal: Risk for impaired skin integrity will decrease Outcome: Progressing Problem: Lack of Knowledge: Goal: Knowledge of diagnostic tests will improve Outcome: Progressing Goal: Knowledge of the prescribed therapeutic regimen will improve Outcome: Progressing Problem: Fluid Volume: Goal: Maintenance of adequate hydration will improve Outcome: Progressing Problem: Respiratory: Goal: Ability to achieve and maintain a regular respiratory rate will improve Outcome: Progressing Goal: Ability to maintain a clear airway will improve Outcome: Progressing Goal: Ability to maintain normal pulse oximetry readings will improve Outcome: Progressing Goal: Ability to maintain arterial blood gas levels within normal range will improve Outcome: Progressing Goal: Verbalizations of increased ease of respirations will increase Outcome: Progressing Problem: Skin Integrity: Goal: Skin integrity will be supported Outcome: Progressing Problem: Activity: Goal: Mobility will improve Outcome: Progressing Problem: Lack of Knowledge: Goal: Understanding of ways to prevent future skin breakdown will improve Outcome: Progressing Goal: Ability to identify appropriate dietary choices will improve Outcome: Progressing Problem: Nutritional: Goal: Dietary intake will improve Outcome: Progressing Goal: Ability to maintain a balanced intake and output will improve Outcome: Progressing Problem: Skin Integrity: Goal: Risk for impaired skin integrity will decrease Outcome: Progressing Goal: Ability to demonstrate warm and dry skin will improve Outcome: Progressing Goal: Circulation will improve to fullest extent possible Outcome: Progressing * Plan of Care - Miladys Doan RN - 04/28/2021 1:55 PM CDT As per chart review, patient alert and continues to do well. Respiratory status continues to improve. Breathing comfortably on Opti Flow 80% FiO2 50 liters/minute. Weaning down. WBC???s 12.7. Dexamethasone x 10 days and Remdesivir completed. Pulmonary continues to follow. * Plan of Care - Jimmy Butts RN - 04/28/2021 6:03 AM CDT Problem: Lack of Knowledge: Goal: Ability to state ways to decrease the risk of falls will improve Outcome: Progressing Problem: Safety: Goal: Will remain free from falls Outcome: Progressing Goal: Will remain free from injury from falls Outcome: Progressing Goal: Will remain free from falls and injury in home environment Outcome: Progressing Problem: Lack of Knowledge: Goal: Knowledge of risk factors and measures for prevention of condition will improve Outcome: Progressing Problem: Physical Regulation: Goal: Spread of further infection will be prevented Outcome: Progressing Goal: Complications related to the disease process, condition or treatment will be avoided or minimized Outcome: Progressing Problem: Cardiac: Goal: Ability to maintain vital signs within normal range will improve Outcome: Progressing Problem: Health Behavior: Goal: Understanding of discharge needs will improve Outcome: Progressing Problem: Lack of Knowledge: Goal: Ability to describe self-care measures that may prevent or decrease complications will improve Outcome: Progressing Goal: Knowledge of disease or condition will improve Outcome: Progressing Goal: Knowledge of the prescribed therapeutic regimen will improve Outcome: Progressing Goal: Knowledge of prevention and discharge planning will improve Outcome: Progressing Problem: Coping: Goal: Ability to adjust to condition or change in health will improve Outcome: Progressing Problem: Fluid Volume: Goal: Ability to maintain a balanced intake and output will improve Outcome: Progressing Problem: Health Behavior: Goal: Ability to identify and alter actions that are detrimental to health will improve Outcome: Progressing Goal: Ability to identify and utilize available resources and services will improve Outcome: Progressing Goal: Ability to manage health-related needs will improve Outcome: Progressing Problem: Nutritional: Goal: Maintenance of adequate nutrition will improve Outcome: Progressing Goal: Progress toward achieving an optimal weight will improve Outcome: Progressing Problem: Physical Regulation: Goal: Complications related to the disease process, condition or treatment will be avoided or minimized Outcome: Progressing Goal: Diagnostic test results will improve Outcome: Progressing Problem: Skin Integrity: Goal: Risk for impaired skin integrity will decrease Outcome: Progressing Problem: Lack of Knowledge: Goal: Knowledge of diagnostic tests will improve Outcome: Progressing Goal: Knowledge of the prescribed therapeutic regimen will improve Outcome: Progressing Problem: Fluid Volume: Goal: Maintenance of adequate hydration will improve Outcome: Progressing Problem: Respiratory: Goal: Ability to achieve and maintain a regular respiratory rate will improve Outcome: Progressing Goal: Ability to maintain a clear airway will improve Outcome: Progressing Goal: Ability to maintain normal pulse oximetry readings will improve Outcome: Progressing Goal: Ability to maintain arterial blood gas levels within normal range will improve Outcome: Progressing Goal: Verbalizations of increased ease of respirations will increase Outcome: Progressing Problem: Skin Integrity: Goal: Skin integrity will be supported Outcome: Progressing Problem: Activity: Goal: Mobility will improve Outcome: Progressing Problem: Lack of Knowledge: Goal: Understanding of ways to prevent future skin breakdown will improve Outcome: Progressing Goal: Ability to identify appropriate dietary choices will improve Outcome: Progressing Problem: Nutritional: Goal: Dietary intake will improve Outcome: Progressing Goal: Ability to maintain a balanced intake and output will improve Outcome: Progressing Problem: Skin Integrity: Goal: Risk for impaired skin integrity will decrease Outcome: Progressing Goal: Ability to demonstrate warm and dry skin will improve Outcome: Progressing Goal: Circulation will improve to fullest extent possible Outcome: Progressing Goals: Clinical Goals for the Shift: maintain O2 saturation, wean O2 needs, VSS, comfort, safety * Plan of Mary - Tess Mackey RN - 04/27/2021 5:47 PM CDT Goals: Problem: Lack of Knowledge: Goal: Ability to state ways to decrease the risk of falls will improve Outcome: Progressing Problem: Safety: Goal: Will remain free from falls Outcome: Progressing Goal: Will remain free from injury from falls Outcome: Progressing Goal: Will remain free from falls and injury in home environment Outcome: Progressing Problem: Lack of Knowledge: Goal: Knowledge of risk factors and measures for prevention of condition will improve Outcome: Progressing Problem: Physical Regulation: Goal: Spread of further infection will be prevented Outcome: Progressing Goal: Complications related to the disease process, condition or treatment will be avoided or minimized Outcome: Progressing Problem: Cardiac: Goal: Ability to maintain vital signs within normal range will improve Outcome: Progressing Problem: Health Behavior: Goal: Understanding of discharge needs will improve Outcome: Progressing Problem: Lack of Knowledge: Goal: Ability to describe self-care measures that may prevent or decrease complications will improve Outcome: Progressing Goal: Knowledge of disease or condition will improve Outcome: Progressing Goal: Knowledge of the prescribed therapeutic regimen will improve Outcome: Progressing Goal: Knowledge of prevention and discharge planning will improve Outcome: Progressing Problem: Coping: Goal: Ability to adjust to condition or change in health will improve Outcome: Progressing Problem: Fluid Volume: Goal: Ability to maintain a balanced intake and output will improve Outcome: Progressing Problem: Health Behavior: Goal: Ability to identify and alter actions that are detrimental to health will improve Outcome: Progressing Goal: Ability to identify and utilize available resources and services will improve Outcome: Progressing Goal: Ability to manage health-related needs will improve Outcome: Progressing Problem: Nutritional: Goal: Maintenance of adequate nutrition will improve Outcome: Progressing Goal: Progress toward achieving an optimal weight will improve Outcome: Progressing Problem: Physical Regulation: Goal: Complications related to the disease process, condition or treatment will be avoided or minimized Outcome: Progressing Goal: Diagnostic test results will improve Outcome: Progressing Problem: Skin Integrity: Goal: Risk for impaired skin integrity will decrease Outcome: Progressing Problem: Lack of Knowledge: Goal: Knowledge of diagnostic tests will improve Outcome: Progressing Goal: Knowledge of the prescribed therapeutic regimen will improve Outcome: Progressing Problem: Fluid Volume: Goal: Maintenance of adequate hydration will improve Outcome: Progressing Problem: Respiratory: Goal: Ability to achieve and maintain a regular respiratory rate will improve Outcome: Progressing Goal: Ability to maintain a clear airway will improve Outcome: Progressing Goal: Ability to maintain normal pulse oximetry readings will improve Outcome: Progressing Goal: Ability to maintain arterial blood gas levels within normal range will improve Outcome: Progressing Goal: Verbalizations of increased ease of respirations will increase Outcome: Progressing Problem: Skin Integrity: Goal: Skin integrity will be supported Outcome: Progressing Problem: Activity: Goal: Mobility will improve Outcome: Progressing Problem: Lack of Knowledge: Goal: Understanding of ways to prevent future skin breakdown will improve Outcome: Progressing Goal: Ability to identify appropriate dietary choices will improve Outcome: Progressing Problem: Nutritional: Goal: Dietary intake will improve Outcome: Progressing Goal: Ability to maintain a balanced intake and output will improve Outcome: Progressing Problem: Skin Integrity: Goal: Risk for impaired skin integrity will decrease Outcome: Progressing Goal: Ability to demonstrate warm and dry skin will improve Outcome: Progressing Goal: Circulation will improve to fullest extent possible Outcome: Progressing Clinical Goals for the Shift: maintain O2 saturation, wean O2 needs, VSS, comfort, safety Summary: Pt instructed to remain on Opti overnight, was successful. Continued wearing Optiflow throughout dayshift. Tolerating well, 60L 75%. Sats remain stable in 90s. Does not complain of discomfort or extreme dyspnea. She is eating well and continues to put out a good amount of urine. Vitals stable, will continue to monitor. * Plan of Care - Jimmy Butts RN - 04/27/2021 6:00 AM CDT Problem: Lack of Knowledge: Goal: Ability to state ways to decrease the risk of falls will improve Outcome: Progressing Problem: Safety: Goal: Will remain free from falls Outcome: Progressing Goal: Will remain free from injury from falls Outcome: Progressing Goal: Will remain free from falls and injury in home environment Outcome: Progressing Problem: Lack of Knowledge: Goal: Knowledge of risk factors and measures for prevention of condition will improve Outcome: Progressing Problem: Physical Regulation: Goal: Spread of further infection will be prevented Outcome: Progressing Goal: Complications related to the disease process, condition or treatment will be avoided or minimized Outcome: Progressing Problem: Cardiac: Goal: Ability to maintain vital signs within normal range will improve Outcome: Progressing Problem: Health Behavior: Goal: Understanding of discharge needs will improve Outcome: Progressing Problem: Lack of Knowledge: Goal: Ability to describe self-care measures that may prevent or decrease complications will improve Outcome: Progressing Goal: Knowledge of disease or condition will improve Outcome: Progressing Goal: Knowledge of the prescribed therapeutic regimen will improve Outcome: Progressing Goal: Knowledge of prevention and discharge planning will improve Outcome: Progressing Problem: Coping: Goal: Ability to adjust to condition or change in health will improve Outcome: Progressing Problem: Fluid Volume: Goal: Ability to maintain a balanced intake and output will improve Outcome: Progressing Problem: Health Behavior: Goal: Ability to identify and alter actions that are detrimental to health will improve Outcome: Progressing Goal: Ability to identify and utilize available resources and services will improve Outcome: Progressing Goal: Ability to manage health-related needs will improve Outcome: Progressing Problem: Nutritional: Goal: Maintenance of adequate nutrition will improve Outcome: Progressing Goal: Progress toward achieving an optimal weight will improve Outcome: Progressing Problem: Physical Regulation: Goal: Complications related to the disease process, condition or treatment will be avoided or minimized Outcome: Progressing Goal: Diagnostic test results will improve Outcome: Progressing Problem: Skin Integrity: Goal: Risk for impaired skin integrity will decrease Outcome: Progressing Problem: Lack of Knowledge: Goal: Knowledge of diagnostic tests will improve Outcome: Progressing Goal: Knowledge of the prescribed therapeutic regimen will improve Outcome: Progressing Problem: Fluid Volume: Goal: Maintenance of adequate hydration will improve Outcome: Progressing Problem: Respiratory: Goal: Ability to achieve and maintain a regular respiratory rate will improve Outcome: Progressing Goal: Ability to maintain a clear airway will improve Outcome: Progressing Goal: Ability to maintain normal pulse oximetry readings will improve Outcome: Progressing Goal: Ability to maintain arterial blood gas levels within normal range will improve Outcome: Progressing Goal: Verbalizations of increased ease of respirations will increase Outcome: Progressing Problem: Skin Integrity: Goal: Skin integrity will be supported Outcome: Progressing Problem: Activity: Goal: Mobility will improve Outcome: Progressing Problem: Lack of Knowledge: Goal: Understanding of ways to prevent future skin breakdown will improve Outcome: Progressing Goal: Ability to identify appropriate dietary choices will improve Outcome: Progressing Problem: Nutritional: Goal: Dietary intake will improve Outcome: Progressing Goal: Ability to maintain a balanced intake and output will improve Outcome: Progressing Problem: Skin Integrity: Goal: Risk for impaired skin integrity will decrease Outcome: Progressing Goal: Ability to demonstrate warm and dry skin will improve Outcome: Progressing Goal: Circulation will improve to fullest extent possible Outcome: Progressing Goals: Clinical Goals for the Shift: increase activity, increase useof IS, decrease O2 needs * Plan of Care - Madina Busby RN - 04/26/2021 11:04 AM CDT Problem: Lack of Knowledge: Goal: Ability to state ways to decrease the risk of falls will improve Outcome: Progressing Problem: Safety: Goal: Will remain free from falls Outcome: Progressing Problem: Lack of Knowledge: Goal: Knowledge of risk factors and measures for prevention of condition will improve Outcome: Progressing Problem: Physical Regulation: Goal: Spread of further infection will be prevented Outcome: Progressing Goal: Complications related to the disease process, condition or treatment will be avoided or minimized Outcome: Progressing Problem: Cardiac: Goal: Ability to maintain vital signs within normal range will improve Outcome: Progressing Problem: Health Behavior: Goal: Understanding of discharge needs will improve Outcome: Progressing Problem: Lack of Knowledge: Goal: Ability to describe self-care measures that may prevent or decrease complications will improve Outcome: Progressing Goal: Knowledge of disease or condition will improve Outcome: Progressing Goal: Knowledge of the prescribed therapeutic regimen will improve Outcome: Progressing Goal: Knowledge of prevention and discharge planning will improve Outcome: Progressing Problem: Coping: Goal: Ability to adjust to condition or change in health will improve Outcome: Progressing Problem: Fluid Volume: Goal: Ability to maintain a balanced intake and output will improve Outcome: Progressing Problem: Health Behavior: Goal: Ability to identify and alter actions that are detrimental to health will improve Outcome: Progressing Goal: Ability to identify and utilize available resources and services will improve Outcome: Progressing Goal: Ability to manage health-related needs will improve Outcome: Progressing Problem: Nutritional: Goal: Maintenance of adequate nutrition will improve Outcome: Progressing Goal: Progress toward achieving an optimal weight will improve Outcome: Progressing Problem: Physical Regulation: Goal: Complications related to the disease process, condition or treatment will be avoided or minimized Outcome: Progressing Goal: Diagnostic test results will improve Outcome: Progressing Problem: Skin Integrity: Goal: Risk for impaired skin integrity will decrease Outcome: Progressing Problem: Lack of Knowledge: Goal: Knowledge of diagnostic tests will improve Outcome: Progressing Goal: Knowledge of the prescribed therapeutic regimen will improve Outcome: Progressing Problem: Fluid Volume: Goal: Maintenance of adequate hydration will improve Outcome: Progressing Problem: Respiratory: Goal: Ability to achieve and maintain a regular respiratory rate will improve Outcome: Progressing Goal: Ability to maintain a clear airway will improve Outcome: Progressing Goal: Ability to maintain normal pulse oximetry readings will improve Outcome: Progressing Goal: Ability to maintain arterial blood gas levels within normal range will improve Outcome: Progressing Goal: Verbalizations of increased ease of respirations will increase Outcome: Progressing Problem: Skin Integrity: Goal: Skin integrity will be supported Outcome: Progressing Problem: Activity: Goal: Mobility will improve Outcome: Progressing Problem: Lack of Knowledge: Goal: Understanding of ways to prevent future skin breakdown will improve Outcome: Progressing Goal: Ability to identify appropriate dietary choices will improve Outcome: Progressing Problem: Nutritional: Goal: Dietary intake will improve Outcome: Progressing Goal: Ability to maintain a balanced intake and output will improve Outcome: Progressing Problem: Skin Integrity: Goal: Risk for impaired skin integrity will decrease Outcome: Progressing Goal: Ability to demonstrate warm and dry skin will improve Outcome: Progressing Goal: Circulation will improve to fullest extent possible Outcome: Progressing Goals: Clinical Goals for the Shift: increase activity, increase useof IS, decrease O2 needs Summary: Weaning optifow - CPAP PRN * Plan of Care - Carmen Birmingham RN - 04/26/2021 5:39 AM CDT Goals: Clinical Goals for the Shift: VSS, maintain O2 sats, wean O2 as able, comfort, safety Summary: AOx4, extensive education on pulm toilet , IS/ physical activity. Able to help with bed bath while on opti flow 50L, 90% with NRB. Will Desat to low 80s with activity in bed while on optiflow. Cpap NOC. Good PO intake. Problem: Lack of Knowledge: Goal: Ability to state ways to decrease the risk of falls will improve Outcome: Progressing Problem: Safety: Goal: Will remain free from falls Outcome: Progressing Goal: Will remain free from injury from falls Outcome: Progressing Goal: Will remain free from falls and injury in home environment Outcome: Progressing Problem: Lack of Knowledge: Goal: Knowledge of risk factors and measures for prevention of condition will improve Outcome: Progressing Problem: Physical Regulation: Goal: Spread of further infection will be prevented Outcome: Progressing Problem: Cardiac: Goal: Ability to maintain vital signs within normal range will improve Outcome: Progressing Problem: Health Behavior: Goal: Understanding of discharge needs will improve Outcome: Progressing Problem: Lack of Knowledge: Goal: Ability to describe self-care measures that may prevent or decrease complications will improve Outcome: Progressing Goal: Knowledge of disease or condition will improve Outcome: Progressing Goal: Knowledge of the prescribed therapeutic regimen will improve Outcome: Progressing Goal: Knowledge of prevention and discharge planning will improve Outcome: Progressing Problem: Coping: Goal: Ability to adjust to condition or change in health will improve Outcome: Progressing Problem: Fluid Volume: Goal: Ability to maintain a balanced intake and output will improve Outcome: Progressing Problem: Health Behavior: Goal: Ability to identify and alter actions that are detrimental to health will improve Outcome: Progressing Goal: Ability to identify and utilize available resources and services will improve Outcome: Progressing Goal: Ability to manage health-related needs will improve Outcome: Progressing Problem: Nutritional: Goal: Maintenance of adequate nutrition will improve Outcome: Progressing Goal: Progress toward achieving an optimal weight will improve Outcome: Progressing Problem: Physical Regulation: Goal: Complications related to the disease process, condition or treatment will be avoided or minimized Outcome: Progressing Goal: Diagnostic test results will improve Outcome: Progressing Problem: Skin Integrity: Goal: Risk for impaired skin integrity will decrease Outcome: Progressing Problem: Lack of Knowledge: Goal: Knowledge of diagnostic tests will improve Outcome: Progressing Goal: Knowledge of the prescribed therapeutic regimen will improve Outcome: Progressing Problem: Fluid Volume: Goal: Maintenance of adequate hydration will improve Outcome: Progressing Problem: Respiratory: Goal: Ability to achieve and maintain a regular respiratory rate will improve Outcome: Progressing Goal: Ability to maintain a clear airway will improve Outcome: Progressing Goal: Ability to maintain normal pulse oximetry readings will improve Outcome: Progressing Goal: Ability to maintain arterial blood gas levels within normal range will improve Outcome: Progressing Goal: Verbalizations of increased ease of respirations will increase Outcome: Progressing Problem: Skin Integrity: Goal: Skin integrity will be supported Outcome: Progressing Problem: Activity: Goal: Mobility will improve Outcome: Progressing Problem: Lack of Knowledge: Goal: Understanding of ways to prevent future skin breakdown will improve Outcome: Progressing Goal: Ability to identify appropriate dietary choices will improve Outcome: Progressing Problem: Nutritional: Goal: Dietary intake will improve Outcome: Progressing Goal: Ability to maintain a balanced intake and output will improve Outcome: Progressing Problem: Skin Integrity: Goal: Risk for impaired skin integrity will decrease Outcome: Progressing Goal: Ability to demonstrate warm and dry skin will improve Outcome: Progressing Goal: Circulation will improve to fullest extent possible Outcome: Progressing * Plan of Tess May RN - 04/25/2021 6:16 PM CDT Goals: Problem: Lack of Knowledge: Goal: Ability to state ways to decrease the risk of falls will improve Outcome: Progressing Problem: Safety: Goal: Will remain free from falls Outcome: Progressing Goal: Will remain free from injury from falls Outcome: Progressing Goal: Will remain free from falls and injury in home environment Outcome: Progressing Problem: Lack of Knowledge: Goal: Knowledge of risk factors and measures for prevention of condition will improve Outcome: Progressing Problem: Physical Regulation: Goal: Spread of further infection will be prevented Outcome: Progressing Goal: Complications related to the disease process, condition or treatment will be avoided or minimized Outcome: Progressing Problem: Cardiac: Goal: Ability to maintain vital signs within normal range will improve Outcome: Progressing Problem: Health Behavior: Goal: Understanding of discharge needs will improve Outcome: Progressing Problem: Lack of Knowledge: Goal: Ability to describe self-care measures that may prevent or decrease complications will improve Outcome: Progressing Goal: Knowledge of disease or condition will improve Outcome: Progressing Goal: Knowledge of the prescribed therapeutic regimen will improve Outcome: Progressing Goal: Knowledge of prevention and discharge planning will improve Outcome: Progressing Problem: Coping: Goal: Ability to adjust to condition or change in health will improve Outcome: Progressing Problem: Fluid Volume: Goal: Ability to maintain a balanced intake and output will improve Outcome: Progressing Problem: Health Behavior: Goal: Ability to identify and alter actions that are detrimental to health will improve Outcome: Progressing Goal: Ability to identify and utilize available resources and services will improve Outcome: Progressing Goal: Ability to manage health-related needs will improve Outcome: Progressing Problem: Nutritional: Goal: Maintenance of adequate nutrition will improve Outcome: Progressing Goal: Progress toward achieving an optimal weight will improve Outcome: Progressing Problem: Physical Regulation: Goal: Complications related to the disease process, condition or treatment will be avoided or minimized Outcome: Progressing Goal: Diagnostic test results will improve Outcome: Progressing Problem: Skin Integrity: Goal: Risk for impaired skin integrity will decrease Outcome: Progressing Problem: Lack of Knowledge: Goal: Knowledge of diagnostic tests will improve Outcome: Progressing Goal: Knowledge of the prescribed therapeutic regimen will improve Outcome: Progressing Problem: Fluid Volume: Goal: Maintenance of adequate hydration will improve Outcome: Progressing Problem: Respiratory: Goal: Ability to achieve and maintain a regular respiratory rate will improve Outcome: Progressing Goal: Ability to maintain a clear airway will improve Outcome: Progressing Goal: Ability to maintain normal pulse oximetry readings will improve Outcome: Progressing Goal: Ability to maintain arterial blood gas levels within normal range will improve Outcome: Progressing Goal: Verbalizations of increased ease of respirations will increase Outcome: Progressing Problem: Skin Integrity: Goal: Skin integrity will be supported Outcome: Progressing Problem: Activity: Goal: Mobility will improve Outcome: Progressing Problem: Lack of Knowledge: Goal: Understanding of ways to prevent future skin breakdown will improve Outcome: Progressing Goal: Ability to identify appropriate dietary choices will improve Outcome: Progressing Problem: Nutritional: Goal: Dietary intake will improve Outcome: Progressing Goal: Ability to maintain a balanced intake and output will improve Outcome: Progressing Problem: Skin Integrity: Goal: Risk for impaired skin integrity will decrease Outcome: Progressing Goal: Ability to demonstrate warm and dry skin will improve Outcome: Progressing Goal: Circulation will improve to fullest extent possible Outcome: Progressing Clinical Goals for the Shift: VSS, maintain O2 sats, wean O2 as able, comfort, safety Summary: Pt switched to Optiflow before breakfast. Tolerating well. Remained in high 80s-low 90s even when getting up to the commode and exacerbating herself. Recovered quickly. Reminded that the course of COVID and oxygen needs varies [id number], but she is possibly going to be here at [facility] another week or two. Verbalizes understanding. Pt very receptive to all medications and treatment plan for COVID. Will continue to monitor O2 sats and VS. * Plan of Care - Carmen Birmingham RN - 04/25/2021 5:50 AM CDT Goals: Clinical Goals for the Shift: VSS, maintain O2 sats, comfort, safety Summary: Aox4, eating well and turns well, using IS. Problem: Lack of Knowledge: Goal: Ability to state ways to decrease the risk of falls will improve Outcome: Progressing Problem: Safety: Goal: Will remain free from falls Outcome: Progressing Goal: Will remain free from injury from falls Outcome: Progressing Goal: Will remain free from falls and injury in home environment Outcome: Progressing Problem: Lack of Knowledge: Goal: Knowledge of risk factors and measures for prevention of condition will improve Outcome: Progressing Problem: Physical Regulation: Goal: Spread of further infection will be prevented Outcome: Progressing Goal: Complications related to the disease process, condition or treatment will be avoided or minimized Outcome: Progressing Problem: Cardiac: Goal: Ability to maintain vital signs within normal range will improve Outcome: Progressing Problem: Health Behavior: Goal: Understanding of discharge needs will improve Outcome: Progressing Problem: Lack of Knowledge: Goal: Ability to describe self-care measures that may prevent or decrease complications will improve Outcome: Progressing Goal: Knowledge of disease or condition will improve Outcome: Progressing Goal: Knowledge of the prescribed therapeutic regimen will improve Outcome: Progressing Goal: Knowledge of prevention and discharge planning will improve Outcome: Progressing Problem: Coping: Goal: Ability to adjust to condition or change in health will improve Outcome: Progressing Problem: Health Behavior: Goal: Ability to identify and alter actions that are detrimental to health will improve Outcome: Progressing Goal: Ability to identify and utilize available resources and services will improve Outcome: Progressing Goal: Ability to manage health-related needs will improve Outcome: Progressing Problem: Nutritional: Goal: Maintenance of adequate nutrition will improve Outcome: Progressing Goal: Progress toward achieving an optimal weight will improve Outcome: Progressing Problem: Physical Regulation: Goal: Complications related to the disease process, condition or treatment will be avoided or minimized Outcome: Progressing Goal: Diagnostic test results will improve Outcome: Progressing Problem: Skin Integrity: Goal: Risk for impaired skin integrity will decrease Outcome: Progressing Problem: Lack of Knowledge: Goal: Knowledge of diagnostic tests will improve Outcome: Progressing Goal: Knowledge of the prescribed therapeutic regimen will improve Outcome: Progressing Problem: Fluid Volume: Goal: Maintenance of adequate hydration will improve Outcome: Progressing Problem: Respiratory: Goal: Ability to achieve and maintain a regular respiratory rate will improve Outcome: Progressing Goal: Ability to maintain a clear airway will improve Outcome: Progressing Goal: Ability to maintain normal pulse oximetry readings will improve Outcome: Progressing Goal: Ability to maintain arterial blood gas levels within normal range will improve Outcome: Progressing Goal: Verbalizations of increased ease of respirations will increase Outcome: Progressing Problem: Skin Integrity: Goal: Skin integrity will be supported Outcome: Progressing Problem: Activity: Goal: Mobility will improve Outcome: Progressing Problem: Lack of Knowledge: Goal: Understanding of ways to prevent future skin breakdown will improve Outcome: Progressing Goal: Ability to identify appropriate dietary choices will improve Outcome: Progressing Problem: Nutritional: Goal: Dietary intake will improve Outcome: Progressing Goal: Ability to maintain a balanced intake and output will improve Outcome: Progressing Problem: Skin Integrity: Goal: Risk for impaired skin integrity will decrease Outcome: Progressing Goal: Ability to demonstrate warm and dry skin will improve Outcome: Progressing Goal: Circulation will improve to fullest extent possible Outcome: Progressing * Plan of [facility] - Tess Mackey RN - 04/24/2021 6:50 PM CDT Goals: Problem: Lack of Knowledge: Goal: Ability to state ways to decrease the risk of falls will improve Outcome: Progressing Problem: Safety: Goal: Will remain free from falls Outcome: Progressing Goal: Will remain free from injury from falls Outcome: Progressing Goal: Will remain free from falls and injury in home environment Outcome: Progressing Problem: Lack of Knowledge: Goal: Knowledge of risk factors and measures for prevention of condition will improve Outcome: Progressing Problem: Physical Regulation: Goal: Spread of further infection will be prevented Outcome: Progressing Goal: Complications related to the disease process, condition or treatment will be avoided or minimized Outcome: Progressing Problem: Cardiac: Goal: Ability to maintain vital signs within normal range will improve Outcome: Progressing Problem: Health Behavior: Goal: Understanding of discharge needs will improve Outcome: Progressing Problem: Lack of Knowledge: Goal: Ability to describe self-care measures that may prevent or decrease complications will improve Outcome: Progressing Goal: Knowledge of disease or condition will improve Outcome: Progressing Goal: Knowledge of the prescribed therapeutic regimen will improve Outcome: Progressing Goal: Knowledge of prevention and discharge planning will improve Outcome: Progressing Problem: Coping: Goal: Ability to adjust to condition or change in health will improve Outcome: Progressing Problem: Fluid Volume: Goal: Ability to maintain a balanced intake and output will improve Outcome: Progressing Problem: Health Behavior: Goal: Ability to identify and alter actions that are detrimental to health will improve Outcome: Progressing Goal: Ability to identify and utilize available resources and services will improve Outcome: Progressing Goal: Ability to manage health-related needs will improve Outcome: Progressing Problem: Nutritional: Goal: Maintenance of adequate nutrition will improve Outcome: Progressing Goal: Progress toward achieving an optimal weight will improve Outcome: Progressing Problem: Physical Regulation: Goal: Complications related to the disease process, condition or treatment will be avoided or minimized Outcome: Progressing Goal: Diagnostic test results will improve Outcome: Progressing Problem: Skin Integrity: Goal: Risk for impaired skin integrity will decrease Outcome: Progressing Problem: Lack of Knowledge: Goal: Knowledge of diagnostic tests will improve Outcome: Progressing Goal: Knowledge of the prescribed therapeutic regimen will improve Outcome: Progressing Problem: Fluid Volume: Goal: Maintenance of adequate hydration will improve Outcome: Progressing Problem: Respiratory: Goal: Ability to achieve and maintain a regular respiratory rate will improve Outcome: Progressing Goal: Ability to maintain a clear airway will improve Outcome: Progressing Goal: Ability to maintain normal pulse oximetry readings will improve Outcome: Progressing Goal: Ability to maintain arterial blood gas levels within normal range will improve Outcome: Progressing Goal: Verbalizations of increased ease of respirations will increase Outcome: Progressing Problem: Skin Integrity: Goal: Skin integrity will be supported Outcome: Progressing Problem: Activity: Goal: Mobility will improve Outcome: Progressing Problem: Lack of Knowledge: Goal: Understanding of ways to prevent future skin breakdown will improve Outcome: Progressing Goal: Ability to identify appropriate dietary choices will improve Outcome: Progressing Problem: Nutritional: Goal: Dietary intake will improve Outcome: Progressing Goal: Ability to maintain a balanced intake and output will improve Outcome: Progressing Problem: Skin Integrity: Goal: Risk for impaired skin integrity will decrease Outcome: Progressing Goal: Ability to demonstrate warm and dry skin will improve Outcome: Progressing Goal: Circulation will improve to fullest extent possible Outcome: Progressing Clinical Goals for the Shift: VSS, maintain O2 sats, comfort, safety Summary: Pt began shift on bipap, tolerating well. RT switched them over to Optiflow, tolerated well throughout rest of shift. Pt aware of treatment plan regarding COVID, educated on how course of the illness varies greatly from person to person. Desats to mid-high 80s briefly upon exertion, but recovers quickly. VS stable, continue to monitor. * Plan of Care - Bianca Lopez RN - 04/24/2021 5:17 AM CDT Problem: Lack of Knowledge: Goal: Ability to state ways to decrease the risk of falls will improve Outcome: Progressing Problem: Safety: Goal: Will remain free from falls Outcome: Progressing Goal: Will remain free from injury from falls Outcome: Progressing Goal: Will remain free from falls and injury in home environment Outcome: Progressing Problem: Lack of Knowledge: Goal: Knowledge of risk factors and measures for prevention of condition will improve Outcome: Progressing Problem: Physical Regulation: Goal: Spread of further infection will be prevented Outcome: Progressing Goal: Complications related to the disease process, condition or treatment will be avoided or minimized Outcome: Progressing Problem: Cardiac: Goal: Ability to maintain vital signs within normal range will improve Outcome: Progressing Problem: Health Behavior: Goal: Understanding of discharge needs will improve Outcome: Progressing Problem: Lack of Knowledge: Goal: Ability to describe self-care measures that may prevent or decrease complications will improve Outcome: Progressing Goal: Knowledge of disease or condition will improve Outcome: Progressing Goal: Knowledge of the prescribed therapeutic regimen will improve Outcome: Progressing Goal: Knowledge of prevention and discharge planning will improve Outcome: Progressing Problem: Coping: Goal: Ability to adjust to condition or change in health will improve Outcome: Progressing Problem: Fluid Volume: Goal: Ability to maintain a balanced intake and output will improve Outcome: Progressing Problem: Health Behavior: Goal: Ability to identify and alter actions that are detrimental to health will improve Outcome: Progressing Goal: Ability to identify and utilize available resources and services will improve Outcome: Progressing Goal: Ability to manage health-related needs will improve Outcome: Progressing Problem: Nutritional: Goal: Maintenance of adequate nutrition will improve Outcome: Progressing Goal: Progress toward achieving an optimal weight will improve Outcome: Progressing Problem: Physical Regulation: Goal: Complications related to the disease process, condition or treatment will be avoided or minimized Outcome: Progressing Goal: Diagnostic test results will improve Outcome: Progressing Problem: Skin Integrity: Goal: Risk for impaired skin integrity will decrease Outcome: Progressing Problem: Lack of Knowledge: Goal: Knowledge of diagnostic tests will improve Outcome: Progressing Goal: Knowledge of the prescribed therapeutic regimen will improve Outcome: Progressing Problem: Fluid Volume: Goal: Maintenance of adequate hydration will improve Outcome: Progressing Problem: Respiratory: Goal: Ability to achieve and maintain a regular respiratory rate will improve Outcome: Progressing Goal: Ability to maintain a clear airway will improve Outcome: Progressing Goal: Ability to maintain normal pulse oximetry readings will improve Outcome: Progressing Goal: Ability to maintain arterial blood gas levels within normal range will improve Outcome: Progressing Goal: Verbalizations of increased ease of respirations will increase Outcome: Progressing Problem: Skin Integrity: Goal: Skin integrity will be supported Outcome: Progressing Problem: Activity: Goal: Mobility will improve Outcome: Progressing Problem: Lack of Knowledge: Goal: Understanding of ways to prevent future skin breakdown will improve Outcome: Progressing Goal: Ability to identify appropriate dietary choices will improve Outcome: Progressing Problem: Nutritional: Goal: Dietary intake will improve Outcome: Progressing Goal: Ability to maintain a balanced intake and output will improve Outcome: Progressing Problem: Skin Integrity: Goal: Risk for impaired skin integrity will decrease Outcome: Progressing Goal: Ability to demonstrate warm and dry skin will improve Outcome: Progressing Goal: Circulation will improve to fullest extent possible Outcome: Progressing Goals: Clinical Goals for the Shift: VSS, maintain patent airway, remain free of falls/injury Summary: * Plan of Care - Hoda Melendrez RN - 04/23/2021 12:57 PM CDT Problem: Lack of Knowledge: Goal: Ability to state ways to decrease the risk of falls will improve Outcome: Progressing Problem: Safety: Goal: Will remain free from falls Outcome: Progressing Goal: Will remain free from injury from falls Outcome: Progressing Goal: Will remain free from falls and injury in home environment Outcome: Progressing Problem: Lack of Knowledge: Goal: Knowledge of risk factors and measures for prevention of condition will improve Outcome: Progressing Problem: Physical Regulation: Goal: Spread of further infection will be prevented Outcome: Progressing Goal: Complications related to the disease process, condition or treatment will be avoided or minimized Outcome: Progressing Problem: Cardiac: Goal: Ability to maintain vital signs within normal range will improve Outcome: Progressing Problem: Health Behavior: Goal: Understanding of discharge needs will improve Outcome: Progressing Problem: Lack of Knowledge: Goal: Ability to describe self-care measures that may prevent or decrease complications will improve Outcome: Progressing Goal: Knowledge of disease or condition will improve Outcome: Progressing Goal: Knowledge of the prescribed therapeutic regimen will improve Outcome: Progressing Goal: Knowledge of prevention and discharge planning will improve Outcome: Progressing Problem: Coping: Goal: Ability to adjust to condition or change in health will improve Outcome: Progressing Problem: Fluid Volume: Goal: Ability to maintain a balanced intake and output will improve Outcome: Progressing Problem: Health Behavior: Goal: Ability to identify and alter actions that are detrimental to health will improve Outcome: Progressing Goal: Ability to identify and utilize available resources and services will improve Outcome: Progressing Goal: Ability to manage health-related needs will improve Outcome: Progressing Problem: Nutritional: Goal: Maintenance of adequate nutrition will improve Outcome: Progressing Goal: Progress toward achieving an optimal weight will improve Outcome: Progressing Problem: Physical Regulation: Goal: Complications related to the disease process, condition or treatment will be avoided or minimized Outcome: Progressing Goal: Diagnostic test results will improve Outcome: Progressing Problem: Skin Integrity: Goal: Risk for impaired skin integrity will decrease Outcome: Progressing Problem: Lack of Knowledge: Goal: Knowledge of diagnostic tests will improve Outcome: Progressing Goal: Knowledge of the prescribed therapeutic regimen will improve Outcome: Progressing Problem: Fluid Volume: Goal: Maintenance of adequate hydration will improve Outcome: Progressing Problem: Respiratory: Goal: Ability to achieve and maintain a regular respiratory rate will improve Outcome: Progressing Goal: Ability to maintain a clear airway will improve Outcome: Progressing Goal: Ability to maintain normal pulse oximetry readings will improve Outcome: Progressing Goal: Ability to maintain arterial blood gas levels within normal range will improve Outcome: Progressing Goal: Verbalizations of increased ease of respirations will increase Outcome: Progressing Problem: Skin Integrity: Goal: Skin integrity will be supported Outcome: Progressing Problem: Activity: Goal: Mobility will improve Outcome: Progressing Problem: Lack of Knowledge: Goal: Understanding of ways to prevent future skin breakdown will improve Outcome: Progressing Goal: Ability to identify appropriate dietary choices will improve Outcome: Progressing Problem: Nutritional: Goal: Dietary intake will improve Outcome: Progressing Goal: Ability to maintain a balanced intake and output will improve Outcome: Progressing Problem: Skin Integrity: Goal: Risk for impaired skin integrity will decrease Outcome: Progressing Goal: Ability to demonstrate warm and dry skin will improve Outcome: Progressing Goal: Circulation will improve to fullest extent possible Outcome: Progressing Goals: Clinical Goals for the Shift: VSS, maintain patent airway, remain free of falls/injury Summary: Pt is A/O x 4 Pt has been SR on the monitor No complaints of pain Fall precautions are in place, Pt was encouraged to turn/reposition frequently Bed is locked and in low position Will continue to monitor. * [facility], Karina Dias RN - 04/22/2021 4:04 PM CDT Problem: Lack of Knowledge: Goal: Ability to state ways to decrease the risk of falls will improve Outcome: Progressing Problem: Safety: Goal: Will remain free from falls Outcome: Progressing Goal: Will remain free from injury from falls Outcome: Progressing Goal: Will remain free from falls and injury in home environment Outcome: Progressing Problem: Lack of Knowledge: Goal: Knowledge of risk factors and measures for prevention of condition will improve Outcome: Progressing Problem: Physical Regulation: Goal: Spread of further infection will be prevented Outcome: Progressing Goal: Complications related to the disease process, condition or treatment will be avoided or minimized Outcome: Progressing Problem: Cardiac: Goal: Ability to maintain vital signs within normal range will improve Outcome: Progressing Problem: Health Behavior: Goal: Understanding of discharge needs will improve Outcome: Progressing Problem: Lack of Knowledge: Goal: Ability to describe self-care measures that may prevent or decrease complications will improve Outcome: Progressing Goal: Knowledge of disease or condition will improve Outcome: Progressing Goal: Knowledge of the prescribed therapeutic regimen will improve Outcome: Progressing Goal: Knowledge of prevention and discharge planning will improve Outcome: Progressing Problem: Coping: Goal: Ability to adjust to condition or change in health will improve Outcome: Progressing Problem: Fluid Volume: Goal: Ability to maintain a balanced intake and output will improve Outcome: Progressing Problem: Health Behavior: Goal: Ability to identify and alter actions that are detrimental to health will improve Outcome: Progressing Goal: Ability to identify and utilize available resources and services will improve Outcome: Progressing Goal: Ability to manage health-related needs will improve Outcome: Progressing Problem: Nutritional: Goal: Maintenance of adequate nutrition will improve Outcome: Progressing Goal: Progress toward achieving an optimal weight will improve Outcome: Progressing Problem: Physical Regulation: Goal: Complications related to the disease process, condition or treatment will be avoided or minimized Outcome: Progressing Goal: Diagnostic test results will improve Outcome: Progressing Problem: Skin Integrity: Goal: Risk for impaired skin integrity will decrease Outcome: Progressing Problem: Lack of Knowledge: Goal: Knowledge of diagnostic tests will improve Outcome: Progressing Goal: Knowledge of the prescribed therapeutic regimen will improve Outcome: Progressing Problem: Fluid Volume: Goal: Maintenance of adequate hydration will improve Outcome: Progressing Problem: Respiratory: Goal: Ability to achieve and maintain a regular respiratory rate will improve Outcome: Progressing Goal: Ability to maintain a clear airway will improve Outcome: Progressing Goal: Ability to maintain normal pulse oximetry readings will improve Outcome: Progressing Goal: Ability to maintain arterial blood gas levels within normal range will improve Outcome: Progressing Goal: Verbalizations of increased ease of respirations will increase Outcome: Progressing Problem: Skin Integrity: Goal: Skin integrity will be supported Outcome: Progressing Problem: Activity: Goal: Mobility will improve Outcome: Progressing Problem: Lack of Knowledge: Goal: Understanding of ways to prevent future skin breakdown will improve Outcome: Progressing Goal: Ability to identify appropriate dietary choices will improve Outcome: Progressing Problem: Nutritional: Goal: Dietary intake will improve Outcome: Progressing Goal: Ability to maintain a balanced intake and output will improve Outcome: Progressing Problem: Skin Integrity: Goal: Risk for impaired skin integrity will decrease Outcome: Progressing Goal: Ability to demonstrate warm and dry skin will improve Outcome: Progressing Goal: Circulation will improve to fullest extent possible Outcome: Progressing * Plan of Care - Patricia King RRT - 04/22/2021 8:55 AM CDT Problem: Lack of Knowledge: Goal: Knowledge of diagnostic tests will improve Outcome: Progressing Goal: Knowledge of the prescribed therapeutic regimen will improve Outcome: Progressing Problem: Respiratory: Goal: Ability to achieve and maintain a regular respiratory rate will improve Outcome: Progressing Goal: Ability to maintain a clear airway will improve Outcome: Progressing Goal: Ability to maintain normal pulse oximetry readings will improve Outcome: Progressing Goal: Ability to maintain arterial blood gas levels within normal range will improve Outcome: Progressing Oxygen Therapy Patient remains on oxygen titration protocol. Wean FiO2 to maintain SpO2 >92%. * Plan of Care - Delilah Hall RN - 04/21/2021 2:16 AM CDT Goals: Clinical Goals for the Shift: VSS, maintain patent airway, remain free of falls/injury Summary: Problem: Lack of Knowledge: Goal: Ability to state ways to decrease the risk of falls will improve Outcome: Progressing Problem: Safety: Goal: Will remain free from falls Outcome: Progressing Goal: Will remain free from injury from falls Outcome: Progressing Goal: Will remain free from falls and injury in home environment Outcome: Progressing Problem: Lack of Knowledge: Goal: Knowledge of risk factors and measures for prevention of condition will improve Outcome: Progressing Problem: Physical Regulation: Goal: Spread of further infection will be prevented Outcome: Progressing Goal: Complications related to the disease process, condition or treatment will be avoided or minimized Outcome: Progressing Problem: Cardiac: Goal: Ability to maintain vital signs within normal range will improve Outcome: Progressing Problem: Health Behavior: Goal: Understanding of discharge needs will improve Outcome: Progressing Problem: Lack of Knowledge: Goal: Ability to describe self-care measures that may prevent or decrease complications will improve Outcome: Progressing Goal: Knowledge of disease or condition will improve Outcome: Progressing Goal: Knowledge of the prescribed therapeutic regimen will improve Outcome: Progressing Goal: Knowledge of prevention and discharge planning will improve Outcome: Progressing Problem: Coping: Goal: Ability to adjust to condition or change in health will improve Outcome: Progressing Problem: Fluid Volume: Goal: Ability to maintain a balanced intake and output will improve Outcome: Progressing Problem: Health Behavior: Goal: Ability to identify and alter actions that are detrimental to health will improve Outcome: Progressing Goal: Ability to identify and utilize available resources and services will improve Outcome: Progressing Goal: Ability to manage health-related needs will improve Outcome: Progressing Problem: Nutritional: Goal: Maintenance of adequate nutrition will improve Outcome: Progressing Goal: Progress toward achieving an optimal weight will improve Outcome: Progressing Problem: Physical Regulation: Goal: Complications related to the disease process, condition or treatment will be avoided or minimized Outcome: Progressing Goal: Diagnostic test results will improve Outcome: Progressing Problem: Skin Integrity: Goal: Risk for impaired skin integrity will decrease Outcome: Progressing Problem: Lack of Knowledge: Goal: Knowledge of diagnostic tests will improve Outcome: Progressing Goal: Knowledge of the prescribed therapeutic regimen will improve Outcome: Progressing Problem: Fluid Volume: Goal: Maintenance of adequate hydration will improve Outcome: Progressing Problem: Respiratory: Goal: Ability to achieve and maintain a regular respiratory rate will improve Outcome: Progressing Goal: Ability to maintain a clear airway will improve Outcome: Progressing Goal: Ability to maintain normal pulse oximetry readings will improve Outcome: Progressing Goal: Ability to maintain arterial blood gas levels within normal range will improve Outcome: Progressing Goal: Verbalizations of increased ease of respirations will increase Outcome: Progressing Problem: Skin Integrity: Goal: Skin integrity will be supported Outcome: Progressing Problem: Activity: Goal: Mobility will improve Outcome: Progressing Problem: Lack of Knowledge: Goal: Understanding of ways to prevent future skin breakdown will improve Outcome: Progressing Goal: Ability to identify appropriate dietary choices will improve Outcome: Progressing Problem: Nutritional: Goal: Dietary intake will improve Outcome: Progressing Goal: Ability to maintain a balanced intake and output will improve Outcome: Progressing Problem: Skin Integrity: Goal: Risk for impaired skin integrity will decrease Outcome: Progressing Goal: Ability to demonstrate warm and dry skin will improve Outcome: Progressing Goal: Circulation will improve to fullest extent possible Outcome: Progressing * Plan of Care - Winsome Sanchez RN - 04/20/2021 10:22 AM CDT Problem: Lack of Knowledge: Goal: Ability to state ways to decrease the risk of falls will improve Outcome: Progressing Problem: Safety: Goal: Will remain free from falls Outcome: Progressing Goal: Will remain free from injury from falls Outcome: Progressing Goal: Will remain free from falls and injury in home environment Outcome: Progressing Problem: Lack of Knowledge: Goal: Knowledge of risk factors and measures for prevention of condition will improve Outcome: Progressing Problem: Physical Regulation: Goal: Spread of further infection will be prevented Outcome: Progressing Goal: Complications related to the disease process, condition or treatment will be avoided or minimized Outcome: Progressing Problem: Cardiac: Goal: Ability to maintain vital signs within normal range will improve Outcome: Progressing Problem: Health Behavior: Goal: Understanding of discharge needs will improve Outcome: Progressing Problem: Lack of Knowledge: Goal: Ability to describe self-care measures that may prevent or decrease complications will improve Outcome: Progressing Goal: Knowledge of disease or condition will improve Outcome: Progressing Goal: Knowledge of the prescribed therapeutic regimen will improve Outcome: Progressing Goal: Knowledge of prevention and discharge planning will improve Outcome: Progressing Problem: Coping: Goal: Ability to adjust to condition or change in health will improve Outcome: Progressing Problem: Fluid Volume: Goal: Ability to maintain a balanced intake and output will improve Outcome: Progressing Problem: Health Behavior: Goal: Ability to identify and alter actions that are detrimental to health will improve Outcome: Progressing Goal: Ability to identify and utilize available resources and services will improve Outcome: Progressing Goal: Ability to manage health-related needs will improve Outcome: Progressing Problem: Nutritional: Goal: Maintenance of adequate nutrition will improve Outcome: Progressing Goal: Progress toward achieving an optimal weight will improve Outcome: Progressing Problem: Physical Regulation: Goal: Complications related to the disease process, condition or treatment will be avoided or minimized Outcome: Progressing Goal: Diagnostic test results will improve Outcome: Progressing Problem: Skin Integrity: Goal: Risk for impaired skin integrity will decrease Outcome: Progressing Problem: Lack of Knowledge: Goal: Knowledge of diagnostic tests will improve Outcome: Progressing Goal: Knowledge of the prescribed therapeutic regimen will improve Outcome: Progressing Problem: Fluid Volume: Goal: Maintenance of adequate hydration will improve Outcome: Progressing Problem: Respiratory: Goal: Ability to achieve and maintain a regular respiratory rate will improve Outcome: Progressing Goal: Ability to maintain a clear airway will improve Outcome: Progressing Goal: Ability to maintain normal pulse oximetry readings will improve Outcome: Progressing Goal: Ability to maintain arterial blood gas levels within normal range will improve Outcome: Progressing Goal: Verbalizations of increased ease of respirations will increase Outcome: Progressing Problem: Skin Integrity: Goal: Skin integrity will be supported Outcome: Progressing Problem: Activity: Goal: Mobility will improve Outcome: Progressing Problem: Lack of Knowledge: Goal: Understanding of ways to prevent future skin breakdown will improve Outcome: Progressing Goal: Ability to identify appropriate dietary choices will improve Outcome: Progressing Problem: Nutritional: Goal: Dietary intake will improve Outcome: Progressing Goal: Ability to maintain a balanced intake and output will improve Outcome: Progressing Problem: Skin Integrity: Goal: Risk for impaired skin integrity will decrease Outcome: Progressing Goal: Ability to demonstrate warm and dry skin will improve Outcome: Progressing Goal: Circulation will improve to fullest extent possible Outcome: Progressing Goals: Clinical Goals for the Shift: VSS, decrease oxygen needs, safety, comfort, prone Summary: PROGRESSING * Plan of Mary - Deborah Rahman RRT - 04/19/2021 10:10 AM CDT Problem: Respiratory: Goal: Ability to achieve and maintain a regular respiratory rate will improve Outcome: Progressing Goal: Ability to maintain a clear airway will improve Outcome: Progressing Goal: Ability to maintain normal pulse oximetry readings will improve Outcome: Progressing Goal: Ability to maintain arterial blood gas levels within normal range will improve Outcome: Progressing Goal: Verbalizations of increased ease of respirations will increase Outcome: Progressing ?? Patient remains on high flow nasal cannula (Optiflow) at 60L 100%. RT will continue to attempt to titrate oxygen as tolerated. ?? Oxygen Therapy Patient remains on oxygen titration protocol. ??Wean FiO2 to maintain SpO2 >92%. BiPAP Pt is tolerating non-invasive ventilation well as needed and during naps. Mask fits well with minimal leak. No skin break down noted. Will continue to assess and titrate per MD order. * Plan of Care - Yoanna Zepeda RN - 04/18/2021 5:10 PM CDT Problem: Lack of Knowledge: Goal: Ability to state ways to decrease the risk of falls will improve Outcome: Progressing Problem: Safety: Goal: Will remain free from falls Outcome: Progressing Goal: Will remain free from injury from falls Outcome: Progressing Goal: Will remain free from falls and injury in home environment Outcome: Progressing Problem: Lack of Knowledge: Goal: Knowledge of risk factors and measures for prevention of condition will improve Outcome: Progressing Problem: Cardiac: Goal: Ability to maintain vital signs within normal range will improve Outcome: Progressing Problem: Health Behavior: Goal: Understanding of discharge needs will improve Outcome: Progressing Problem: Coping: Goal: Ability to adjust to condition or change in health will improve Outcome: Progressing Problem: Nutritional: Goal: Maintenance of adequate nutrition will improve Outcome: Progressing Goal: Progress toward achieving an optimal weight will improve Outcome: Progressing Problem: Respiratory: Goal: Ability to achieve and maintain a regular respiratory rate will improve Outcome: Progressing Goal: Ability to maintain a clear airway will improve Outcome: Progressing Goal: Ability to maintain normal pulse oximetry readings will improve Outcome: Progressing Goal: Ability to maintain arterial blood gas levels within normal range will improve Outcome: Progressing Goal: Verbalizations of increased ease of respirations will increase Outcome: Progressing Problem: Skin Integrity: Goal: Skin integrity will be supported Outcome: Progressing Goals: Clinical Goals for the Shift: Easier breathing; stable vital signs, comfort and safety. Summary: Patient still desaturates when effort is exerted; still on opti flow 60L 100%; maintain stable vital signs, and provided with comfort and safety. * Plan of Care - Deborah Rahman RRT - 04/18/2021 10:32 AM CDT Problem: Respiratory: Goal: Ability to achieve and maintain a regular respiratory rate will improve Outcome: Progressing Goal: Ability to maintain a clear airway will improve Outcome: Progressing Goal: Ability to maintain normal pulse oximetry readings will improve Outcome: Progressing Goal: Ability to maintain arterial blood gas levels within normal range will improve Outcome: Progressing Goal: Verbalizations of increased ease of respirations will increase Outcome: Progressing Patient remains on high flow nasal cannula (Optiflow) at 60L 100%. RT will continue to attempt to titrate oxygen as tolerated. Oxygen Therapy Patient remains on oxygen titration protocol. Wean FiO2 to maintain SpO2 >92%. BiPAP Pt is tolerating non-invasive ventilation well as needed and during naps. Mask fits well with minimal leak. No skin break down noted. Will continue to assess and titrate per MD order. * Plan of Care - Yoanna Zepeda RN - 04/17/2021 4:02 PM CDT Problem: Lack of Knowledge: Goal: Ability to state ways to decrease the risk of falls will improve Outcome: Progressing Problem: Safety: Goal: Will remain free from falls Outcome: Progressing Goal: Will remain free from injury from falls Outcome: Progressing Goal: Will remain free from falls and injury in home environment Outcome: Progressing Problem: Lack of Knowledge: Goal: Knowledge of risk factors and measures for prevention of condition will improve Outcome: Progressing Problem: Physical Regulation: Goal: Spread of further infection will be prevented Outcome: Progressing Goal: Complications related to the disease process, condition or treatment will be avoided or minimized Outcome: Progressing Problem: Health Behavior: Goal: Understanding of discharge needs will improve Outcome: Progressing Problem: Cardiac: Goal: Ability to maintain vital signs within normal range will improve Outcome: Progressing Problem: Lack of Knowledge: Goal: Ability to describe self-care measures that may prevent or decrease complications will improve Outcome: Progressing Goal: Knowledge of disease or condition will improve Outcome: Progressing Goal: Knowledge of the prescribed therapeutic regimen will improve Outcome: Progressing Goal: Knowledge of prevention and discharge planning will improve Outcome: Progressing Problem: Health Behavior: Goal: Ability to identify and alter actions that are detrimental to health will improve Outcome: Progressing Goal: Ability to identify and utilize available resources and services will improve Outcome: Progressing Goal: Ability to manage health-related needs will improve Outcome: Progressing Problem: Nutritional: Goal: Maintenance of adequate nutrition will improve Outcome: Progressing Goal: Progress toward achieving an optimal weight will improve Outcome: Progressing Problem: Physical Regulation: Goal: Complications related to the disease process, condition or treatment will be avoided or minimized Outcome: Progressing Goal: Diagnostic test results will improve Outcome: Progressing Problem: Skin Integrity: Goal: Risk for impaired skin integrity will decrease Outcome: Progressing Goals: Clinical Goals for the Shift: Easier Breathing; stable vital signs, comfort and safety. Summary:Maintain stable vital signs, still on Opti flow; and provided with comfort and safety. * Plan of Care - Anitha Chin RN - 04/16/2021 6:01 PM CDT Goals: Clinical Goals for the Shift: VSS, maintain patent airway, comfort and safety Summary: aox4, no complaint of pain. 100% 60L optiflow, call light within reach. Room set up for safety. Problem: Lack of Knowledge: Goal: Ability to state ways to decrease the risk of falls will improve Outcome: Progressing Problem: Safety: Goal: Will remain free from falls Outcome: Progressing Goal: Will remain free from injury from falls Outcome: Progressing Goal: Will remain free from falls and injury in home environment Outcome: Progressing Problem: Lack of Knowledge: Goal: Knowledge of risk factors and measures for prevention of condition will improve Outcome: Progressing Problem: Physical Regulation: Goal: Spread of further infection will be prevented Outcome: Progressing Goal: Complications related to the disease process, condition or treatment will be avoided or minimized Outcome: Progressing Problem: Cardiac: Goal: Ability to maintain vital signs within normal range will improve Outcome: Progressing Problem: Health Behavior: Goal: Understanding of discharge needs will improve Outcome: Progressing * Plan of Care - Janusz Medina RN - 04/16/2021 2:14 AM CDT Goals: Clinical Goals for the Shift: VSS, airway management, labs WDL, comfort, and safety Summary: Problem: Lack of Knowledge: Goal: Ability to state ways to decrease the risk of falls will improve Outcome: Progressing Problem: Safety: Goal: Will remain free from falls Outcome: Progressing Goal: Will remain free from injury from falls Outcome: Progressing Goal: Will remain free from falls and injury in home environment Outcome: Progressing Problem: Lack of Knowledge: Goal: Knowledge of risk factors and measures for prevention of condition will improve Outcome: Progressing Problem: Physical Regulation: Goal: Spread of further infection will be prevented Outcome: Progressing Goal: Complications related to the disease process, condition or treatment will be avoided or minimized Outcome: Progressing Problem: Cardiac: Goal: Ability to maintain vital signs within normal range will improve Outcome: Progressing Problem: Health Behavior: Goal: Understanding of discharge needs will improve Outcome: Progressing * Plan of Care - Javon Russo RN - 04/15/2021 9:49 PM CDT Goals: Clinical Goals for the Shift: telemetry monitoring, pronation. Summary:AO4, Pt proning and turning self, Saturation dips to ~80% with exertions and following turns, still on 15l hiflow, using bedpan at this time due to desat. Other vitals stable. Pt understands care plan, at bedside at start of shift. 2200 some bloody sputum with cough, will monitor 2230 Pt desatting. 88% on HIflow 15L. 15L NRB started. Requested abg, provider denied. Rapid called. Extended recovery time >20min on 15L HiFlow and 15L NRB to sat of 93% 2330 Pt transferred to stepdown. Bedside report given. * Plan of Care - Jennie Esquivel RN - 04/15/2021 9:13 AM CDT Problem: Safety: Goal: Will remain free from falls Outcome: Progressing Problem: Physical Regulation: Goal: Spread of further infection will be prevented Outcome: Progressing Problem: Health Behavior: Goal: Understanding of discharge needs will improve Outcome: Progressing * Plan of Care - Kathy Osei RN - 04/15/2021 4:40 AM CDT Problem: Lack of Knowledge: Goal: Ability to state ways to decrease the risk of falls will improve Outcome: Progressing Problem: Safety: Goal: Will remain free from falls Outcome: Progressing Goal: Will remain free from injury from falls Outcome: Progressing Goal: Will remain free from falls and injury in home environment Outcome: Progressing Problem: Lack of Knowledge: Goal: Knowledge of risk factors and measures for prevention of condition will improve Outcome: Progressing Problem: Physical Regulation: Goal: Spread of further infection will be prevented Outcome: Progressing Goal: Complications related to the disease process, condition or treatment will be avoided or minimized Outcome: Progressing Problem: Cardiac: Goal: Ability to maintain vital signs within normal range will improve Outcome: Progressing Problem: Health Behavior: Goal: Understanding of discharge needs will improve Outcome: Progressing Goals: Clinical Goals for the Shift: telemetry monitoring, pronation. Summary: she is able to tolerate pronation as opposed to earlier and her saturation is between 92-96% still on 15LHF. Lozenges was administered as prescribed and effective. * Plan of Care - Jennie Esquivel RN - 04/14/2021 12:20 PM CDT Problem: Safety: Goal: Will remain free from falls Outcome: Progressing Problem: Lack of Knowledge: Goal: Knowledge of risk factors and measures for prevention of condition will improve Outcome: Progressing Problem: Physical Regulation: Goal: Spread of further infection will be prevented Outcome: Progressing documented in this encounter Plan of Treatment Not on file documented as of this encounter Procedures Procedure Name Priority Date/Time Associated Diagnosis Comments POCT GLUCOSE DEVICE Routine 05/09/2021 4 :50 PM CRINKLING MACHINE OPERATOR POCT GLUCOSE DEVICE Routine 05/09/2021 1 1:40 AM CRINKLING MACHINE OPERATOR POCT GLUCOSE DEVICE Routine 05/09/2021 6 :34 AM CRINKLING MACHINE OPERATOR EGFR Routine 05/09/2021 4:35 AM CRINKLING MACHINE OPERATOR DIFFERENTIAL AUTO Routine 05/09/2021 4:3 5 AM CRINKLING MACHINE OPERATOR CBC WITH AUTO DIFFERENTIAL Routine 05/09/2021 4:35 AM CRINKLING MACHINE OPERATOR BASIC METABOLIC PANEL Routine 05/09/2021 4:35 AM CRINKLING MACHINE OPERATOR POCT GLUCOSE DEVICE Routine 05/09/2021 2 :55 AM CRINKLING MACHINE OPERATOR POCT GLUCOSE DEVICE Routine 05/08/2021 9 :22 PM CRINKLING MACHINE OPERATOR POCT GLUCOSE DEVICE Routine 05/08/2021 5 :10 PM CRINKLING MACHINE OPERATOR HOME O2 EVAL (DESATURATION SCREEN) Routine 05/08/2021 3:59 PM CRINKLING MACHINE OPERATOR POCT GLUCOSE DEVICE Routine 05/08/2021 1 1:45 AM CRINKLING MACHINE OPERATOR POCT GLUCOSE DEVICE Routine 05/08/2021 6 :10 AM CRINKLING MACHINE OPERATOR EGFR Routine 05/08/2021 4:43 AM CRINKLING MACHINE OPERATOR DIFFERENTIAL AUTO Routine 05/08/2021 4:4 3 AM CRINKLING MACHINE OPERATOR CBC WITH AUTO DIFFERENTIAL Routine 05/08/2021 4:43 AM CRINKLING MACHINE OPERATOR BASIC METABOLIC PANEL Routine 05/08/2021 4:43 AM CRINKLING MACHINE OPERATOR POCT GLUCOSE DEVICE Routine 05/08/2021 3 :08 AM CRINKLING MACHINE OPERATOR POCT GLUCOSE DEVICE Routine 05/07/2021 9 :03 PM CRINKLING MACHINE OPERATOR POCT GLUCOSE DEVICE Routine 05/07/2021 5 :26 PM CRINKLING MACHINE OPERATOR POCT GLUCOSE DEVICE Routine 05/07/2021 1 1:40 AM CRINKLING MACHINE OPERATOR POCT GLUCOSE DEVICE Routine 05/07/2021 6 :24 AM CRINKLING MACHINE OPERATOR EGFR Routine 05/07/2021 4:19 AM CRINKLING MACHINE OPERATOR DIFFERENTIAL AUTO Routine 05/07/2021 4:1 9 AM CRINKLING MACHINE OPERATOR CBC WITH AUTO DIFFERENTIAL Routine 05/07/2021 4:19 AM CRINKLING MACHINE OPERATOR BASIC METABOLIC PANEL Routine 05/07/2021 4:19 AM CRINKLING MACHINE OPERATOR POCT GLUCOSE DEVICE Routine 05/07/2021 2 :24 AM CRINKLING MACHINE OPERATOR POCT GLUCOSE DEVICE Routine 05/06/2021 8 :58 PM CRINKLING MACHINE OPERATOR POCT GLUCOSE DEVICE Routine 05/06/2021 4 :38 PM CRINKLING MACHINE OPERATOR POCT GLUCOSE DEVICE Routine 05/06/2021 1 1:14 AM CRINKLING MACHINE OPERATOR EGFR Routine 05/06/2021 7:13 AM CRINKLING MACHINE OPERATOR DIFFERENTIAL AUTO Routine 05/06/2021 7: 13 AM CRINKLING MACHINE OPERATOR CBC WITH AUTO DIFFERENTIAL Routine 05/06/2021 7:13 AM CRINKLING MACHINE OPERATOR BASIC METABOLIC PANEL Routine 05/06/2021 7:13 AM CRINKLING MACHINE OPERATOR POCT GLUCOSE DEVICE Routine 05/05/2021 8 :39 PM CRINKLING MACHINE OPERATOR POCT GLUCOSE DEVICE Routine 05/05/2021 4 :42 PM CRINKLING MACHINE OPERATOR POCT GLUCOSE DEVICE Routine 05/05/2021 1 2:03 PM CRINKLING MACHINE OPERATOR EGFR Routine 05/05/2021 10:24 AM CRINKLING MACHINE OPERATOR DIFFERENTIAL AUTO Routine 05/05/2021 10: 24 AM CRINKLING MACHINE OPERATOR CBC WITH AUTO DIFFERENTIAL Routine 05/05/2021 10:24 AM CRINKLING MACHINE OPERATOR BASIC METABOLIC PANEL Routine 05/05/2021 10:24 AM CRINKLING MACHINE OPERATOR POCT GLUCOSE DEVICE Routine 05/05/2021 6 :23 AM CRINKLING MACHINE OPERATOR POCT GLUCOSE DEVICE Routine 05/04/2021 8 :35 PM CRINKLING MACHINE OPERATOR POCT GLUCOSE DEVICE Routine 05/04/2021 4 :58 PM CRINKLING MACHINE OPERATOR POCT GLUCOSE DEVICE Routine 05/04/2021 1 :36 PM CRINKLING MACHINE OPERATOR EGFR Routine 05/04/2021 10:31 AM CRINKLING MACHINE OPERATOR DIFFERENTIAL AUTO Routine 05/04/2021 10: 31 AM CRINKLING MACHINE OPERATOR PRO B-TYPE NATRIURETIC PEPTIDE Routine 05/04/2021 10:31 AM CRINKLING MACHINE OPERATOR CBC WITH AUTO DIFFERENTIAL Routine 05/04/2021 10:31 AM CRINKLING MACHINE OPERATOR BASIC METABOLIC PANEL Routine 05/04/2021 10:31 AM CRINKLING MACHINE OPERATOR POCT GLUCOSE DEVICE Routine 05/04/2021 6 :17 AM CRINKLING MACHINE OPERATOR POCT GLUCOSE DEVICE Routine 05/04/2021 2 :11 AM CRINKLING MACHINE OPERATOR POCT GLUCOSE DEVICE Routine 05/03/2021 8 :35 PM CDT D-DIMER, QUANTITATIVE Routine 05/03/2021 5:59 PM CDT POCT GLUCOSE DEVICE Routine 05/03/2021 4 :46 PM CDT XR CHEST 1 VIEW IP Routine 05/03/2021 3:19 PM CDT POCT GLUCOSE DEVICE Routine 05/03/2021 1 1:29 AM CDT EGFR Routine 05/03/2021 9:20 AM CDT DIFFERENTIAL AUTO Routine 05/03/2021 9:2 0 AM CDT CBC WITH AUTO DIFFERENTIAL Routine 05/03/2021 9:20 AM CDT BASIC METABOLIC PANEL Routine 05/03/2021 9:20 AM CDT POCT GLUCOSE DEVICE Routine 05/03/2021 6 :47 AM CDT POCT GLUCOSE DEVICE Routine 05/03/2021 2 :53 AM CDT POCT GLUCOSE DEVICE Routine 05/02/2021 9 :56 PM CDT POCT GLUCOSE DEVICE Routine 05/02/2021 5 :27 PM CDT POCT GLUCOSE DEVICE Routine 05/02/2021 1 2:07 PM CDT EGFR Routine 05/02/2021 10:47 AM CDT DIFFERENTIAL AUTO Routine 05/02/2021 10: 47 AM CDT CBC WITH AUTO DIFFERENTIAL Routine 05/02/2021 10:47 AM CDT BASIC METABOLIC PANEL Routine 05/02/2021 10:47 AM CDT POCT GLUCOSE DEVICE Routine 05/02/2021 7 :23 AM CDT POCT GLUCOSE DEVICE Routine 05/02/2021 2 :15 AM CDT POCT GLUCOSE DEVICE Routine 05/01/2021 8 :26 PM CDT POCT GLUCOSE DEVICE Routine 05/01/2021 5 :27 PM CDT POCT GLUCOSE DEVICE Routine 05/01/2021 1 1:55 AM CDT POCT GLUCOSE DEVICE Routine 05/01/2021 7 :56 AM CDT POCT GLUCOSE DEVICE Routine 05/01/2021 2 :00 AM CDT POCT GLUCOSE DEVICE Routine 04/30/2021 8 :16 PM CDT POCT GLUCOSE DEVICE Routine 04/30/2021 6 :04 PM CDT POCT GLUCOSE DEVICE Routine 04/30/2021 1 1:59 AM CDT POCT GLUCOSE DEVICE Routine 04/30/2021 8 :30 AM CDT EGFR Routine 04/30/2021 4:58 AM CDT D-DIMER, QUANTITATIVE Routine 04/30/2021 4:58 AM CDT CRP (ACUTE PHASE) Routine 04/30/2021 4:5 8 AM CDT BASIC METABOLIC PANEL Routine 04/30/2021 4:58 AM CDT DIFFERENTIAL AUTO Routine 04/30/2021 4:2 8 AM CDT CBC WITH AUTO DIFFERENTIAL Routine 04/30/2021 4:28 AM CDT POCT GLUCOSE DEVICE Routine 04/29/2021 7 :57 PM CDT POCT GLUCOSE DEVICE Routine 04/29/2021 5 :48 PM CDT POCT GLUCOSE DEVICE Routine 04/29/2021 1 1:16 AM CDT POCT GLUCOSE DEVICE Routine 04/29/2021 7 :30 AM CDT DIFFERENTIAL AUTO Routine 04/29/2021 3:5 0 AM CDT CBC WITH AUTO DIFFERENTIAL Routine 04/29/2021 3:50 AM CDT EGFR Routine 04/29/2021 3:49 AM CDT BASIC METABOLIC PANEL Routine 04/29/2021 3:49 AM CDT POCT GLUCOSE DEVICE Routine 04/28/2021 8 :36 PM CDT POCT GLUCOSE DEVICE Routine 04/28/2021 5 :22 PM CDT POCT GLUCOSE DEVICE Routine 04/28/2021 1 1:18 AM CDT POCT GLUCOSE DEVICE Routine 04/28/2021 8 :06 AM CDT EGFR Routine 04/28/2021 5:00 AM CDT DIFFERENTIAL AUTO Routine 04/28/2021 5:0 0 AM CDT CBC WITH AUTO DIFFERENTIAL Routine 04/28/2021 5:00 AM CDT BASIC METABOLIC PANEL Routine 04/28/2021 5:00 AM CDT POCT GLUCOSE DEVICE Routine 04/27/2021 8 :28 PM CDT POCT GLUCOSE DEVICE Routine 04/27/2021 6 :40 PM CDT POCT GLUCOSE DEVICE Routine 04/27/2021 1 :26 PM CDT POCT GLUCOSE DEVICE Routine 04/27/2021 8 :26 AM CDT EGFR Routine 04/27/2021 4:00 AM CDT DIFFERENTIAL AUTO Routine 04/27/2021 4:0 0 AM CDT CBC WITH AUTO DIFFERENTIAL Routine 04/27/2021 4:00 AM CDT BASIC METABOLIC PANEL Routine 04/27/2021 4:00 AM CDT POCT GLUCOSE DEVICE Routine 04/26/2021 8 :08 PM CDT POCT GLUCOSE DEVICE Routine 04/26/2021 5 :29 PM CDT POCT GLUCOSE DEVICE Routine 04/26/2021 1 1:57 AM CDT POCT GLUCOSE DEVICE Routine 04/26/2021 8 :58 AM CDT DIFFERENTIAL AUTO Routine 04/26/2021 5:2 9 AM CDT CBC WITH AUTO DIFFERENTIAL Routine 04/26/2021 5:29 AM CDT EGFR Routine 04/26/2021 5:28 AM CDT BASIC METABOLIC PANEL Routine 04/26/2021 5:28 AM CDT POCT GLUCOSE DEVICE Routine 04/25/2021 9 :18 PM CDT POCT GLUCOSE DEVICE Routine 04/25/2021 5 :46 PM CDT POCT GLUCOSE DEVICE Routine 04/25/2021 1 :56 PM CDT POCT GLUCOSE DEVICE Routine 04/25/2021 8 :03 AM CDT EGFR Routine 04/25/2021 3:44 AM CDT BASIC METABOLIC PANEL Routine 04/25/2021 3:44 AM CDT DIFFERENTIAL AUTO Routine 04/25/2021 3:0 2 AM CDT CBC WITH AUTO DIFFERENTIAL Routine 04/25/2021 3:02 AM CDT POCT GLUCOSE DEVICE Routine 04/24/2021 1 0:19 PM CDT POCT GLUCOSE DEVICE Routine 04/24/2021 5 :56 PM CDT POCT GLUCOSE DEVICE Routine 04/24/2021 1 :12 PM CDT POCT GLUCOSE DEVICE Routine 04/24/2021 8 :14 AM CDT EGFR Routine 04/24/2021 7:39 AM CDT DIFFERENTIAL AUTO Routine 04/24/2021 7:3 9 AM CDT CBC WITH AUTO DIFFERENTIAL Routine 04/24/2021 7:39 AM CDT D-DIMER, QUANTITATIVE Routine 04/24/2021 7:39 AM CDT CRP (ACUTE PHASE) Routine 04/24/2021 7:3 9 AM CDT BASIC METABOLIC PANEL Routine 04/24/2021 7:39 AM CDT POCT GLUCOSE DEVICE Routine 04/23/2021 9 :13 PM CDT POCT GLUCOSE DEVICE Routine 04/23/2021 5 :53 PM CDT POCT GLUCOSE DEVICE Routine 04/23/2021 1 :39 PM CDT POCT GLUCOSE DEVICE Routine 04/23/2021 9 :22 AM CDT EGFR Routine 04/23/2021 6:48 AM CDT DIFFERENTIAL AUTO Routine 04/23/2021 6:4 8 AM CDT CBC WITH AUTO DIFFERENTIAL Routine 04/23/2021 6:48 AM CDT BASIC METABOLIC PANEL Routine 04/23/2021 6:48 AM CDT POCT GLUCOSE DEVICE Routine 04/22/2021 9 :14 PM CDT POCT GLUCOSE DEVICE Routine 04/22/2021 6 :57 PM CDT POCT GLUCOSE DEVICE Routine 04/22/2021 1 :47 PM CDT POCT GLUCOSE DEVICE Routine 04/22/2021 9 :49 AM CDT EGFR Routine 04/22/2021 6:31 AM CDT DIFFERENTIAL AUTO Routine 04/22/2021 6:3 1 AM CDT CBC WITH AUTO DIFFERENTIAL Routine 04/22/2021 6:31 AM CDT BASIC METABOLIC PANEL Routine 04/22/2021 6:31 AM CDT POCT GLUCOSE DEVICE Routine 04/21/2021 8 :43 PM CDT POCT GLUCOSE DEVICE Routine 04/21/2021 4 :53 PM CDT POCT GLUCOSE DEVICE Routine 04/21/2021 2 :23 PM CDT POCT GLUCOSE DEVICE Routine 04/21/2021 8 :50 AM CDT POCT GLUCOSE DEVICE Routine 04/20/2021 9 :00 PM CDT POCT GLUCOSE DEVICE Routine 04/20/2021 5 :27 PM CDT POCT GLUCOSE DEVICE Routine 04/20/2021 1 2:57 PM CDT POCT GLUCOSE DEVICE Routine 04/20/2021 9 :34 AM CDT EGFR Routine 04/20/2021 5:34 AM CDT DIFFERENTIAL AUTO Routine 04/20/2021 5:3 4 AM CDT CBC WITH AUTO DIFFERENTIAL Routine 04/20/2021 5:34 AM CDT COMPREHENSIVE METABOLIC PANEL Routine 04/20/2021 5:34 AM CDT POCT GLUCOSE DEVICE Routine 04/19/2021 8 :55 PM CDT POCT GLUCOSE DEVICE Routine 04/19/2021 5 :49 PM CDT POCT GLUCOSE DEVICE Routine 04/19/2021 1 2:42 PM CDT POCT GLUCOSE DEVICE Routine 04/19/2021 8 :29 AM CDT EGFR Routine 04/19/2021 6:57 AM CDT DIFFERENTIAL AUTO Routine 04/19/2021 6:5 7 AM CDT CBC WITH AUTO DIFFERENTIAL Routine 04/19/2021 6:57 AM CDT COMPREHENSIVE METABOLIC PANEL Routine 04/19/2021 6:57 AM CDT POCT GLUCOSE DEVICE Routine 04/18/2021 8 :43 PM CDT POCT GLUCOSE DEVICE Routine 04/18/2021 5 :32 PM CDT POCT GLUCOSE DEVICE Routine 04/18/2021 1 1:53 AM CDT EGFR Routine 04/18/2021 7:39 AM CDT DIFFERENTIAL AUTO Routine 04/18/2021 7:3 9 AM CDT CBC WITH AUTO DIFFERENTIAL Routine 04/18/2021 7:39 AM CDT COMPREHENSIVE METABOLIC PANEL Routine 04/18/2021 7:39 AM CDT POCT GLUCOSE DEVICE Routine 04/18/2021 7 :31 AM CDT POCT GLUCOSE DEVICE Routine 04/17/2021 8 :45 PM CDT POCT GLUCOSE DEVICE Routine 04/17/2021 5 :44 PM CDT POCT GLUCOSE DEVICE Routine 04/17/2021 1 1:12 AM CDT HEMOGLOBIN A1C Routine 04/17/2021 10:43 AM CDT EGFR Routine 04/17/2021 4:31 AM CDT DIFFERENTIAL AUTO Routine 04/17/2021 4:3 1 AM CDT CBC WITH AUTO DIFFERENTIAL Routine 04/17/2021 4:31 AM CDT COMPREHENSIVE METABOLIC PANEL Routine 04/17/2021 4:31 AM CDT DIFFERENTIAL AUTO Routine 04/16/2021 12: 08 PM CDT CBC WITH AUTO DIFFERENTIAL Routine 04/16/2021 12:08 PM CDT EGFR Routine 04/16/2021 8:35 AM CDT D-DIMER, QUANTITATIVE Routine 04/16/2021 8:35 AM CDT CRP (ACUTE PHASE) Routine 04/16/2021 8:3 5 AM CDT COMPREHENSIVE METABOLIC PANEL Routine 04/16/2021 8:35 AM CDT POCT GLUCOSE DEVICE Routine 04/15/2021 1 1:07 PM CDT CRP (ACUTE PHASE) Routine 04/15/2021 11: 17 AM CDT LACTATE STAT 04/14/2021 11:[address] CHEST PE W CONTRAST ED 04/14/2021 4:50 AM CDT TROPONIN T HIGH-SENSITIVITY 2-HOUR Timed 04/14/2021 3:33 AM CDT ECG 12-LEAD STAT 04/14/2021 2:09 AM CDT TROPONIN T HIGH-SENSITIVITY SERIES (BASELINE, 2HR, 4HR, 6HR) STAT 04/14/2021 1:47 AM CDT EGFR STAT 04/14/2021 1:47 AM CDT DIFFERENTIAL AUTO STAT 04/14/2021 1:4 7 AM CDT PRO B-TYPE NATRIURETIC PEPTIDE STAT 04/14/2021 1:47 AM CDT CBC WITH AUTO DIFFERENTIAL STAT 04/14/2021 1:47 AM CDT D-DIMER, QUANTITATIVE STAT 04/14/2021 1:47 AM CDT MAGNESIUM STAT 04/14/2021 1:47 AM CDT COMPREHENSIVE METABOLIC PANEL STAT 04/14/2021 1:47 AM CDT XR CHEST 1 VIEW ED 04/14/2021 1:35 AM CDT documented in this encounter Results * POCT glucose (05/09/2021 4:50 PM CRINKLING MACHINE OPERATOR) Glucose, POC 153 70 - 199 mg/dL [facility] Blood 05/09/2021 4:50 PM CRINKLING MACHINE OPERATOR 05/09/2021 4:50 PM CRINKLING MACHINE OPERATOR us Sarah Gross MD LAB POCT ORDERABLES - DEVICE F inal Result Performing Organization Address [facility] de Phone Number [facility] [id number] [facility] [place] [address] * POCT glucose (05/09/2021 11:40 AM CRINKLING MACHINE OPERATOR) Glucose, POC 186 70 - 199 mg/dL [facility] Blood 05/09/2021 11:4 0 AM CRINKLING MACHINE OPERATOR 05/09/2021 11:40 AM CRINKLING MACHINE OPERATOR Sarah Gross MD LAB POCT ORDERABLES - DEVICE F inal Result Performing Organization Address [facility] de Phone Number [facility] [id number] [place] [address] * POCT glucose (05/09/2021 6:34 AM CRINKLING MACHINE OPERATOR) Glucose, POC 97 70 - 199 mg/dL [facility] Blood 05/09/2021 6:34 AM CRINKLING MACHINE OPERATOR 05/09/2021 6:34 AM CRINKLING MACHINE OPERATOR Sarah Gross MD LAB POCT ORDERABLES - DEVICE F inal Result Performing Organization Address [facility] de Phone Number [facility] [id number] [facility] [place] [address] * eGFR (05/09/2021 4:35 AM CRINKLING MACHINE OPERATOR) eGFR 118 mL/min/1.7 3 m2 [facility] Comment: Interpretive Data Reference Interval Normal ?>/= 90 mL/min/1.73m2 Mildly decreased* ? 60 - 89 mL/min/1.73m2 Mildly to moderately decreased ?45 - 59 mL/min/1.73m2 Moderately to severely decreased ??30 - 44 mL/min/1.73m2 Severely decreased ?15 - 29 mL/min/1.73m2 Kidney Failure ?< 15 ??mL/min/1.73m2 *Relative to young adult level Estimated glomerular filtration rate is determined by the CKD-EPI equation recommended by the National Kidney Foundation (KDIGO 2012 Clinical Practice Guideline for the Evaluation and Management of Chronic Kidney Disease. Kidney Intnl Suppl Jun 2012;3:1). The CKD-EPI equation should not be used for patients with unstable renal function and has not been validated in children and those over 70. Current interpretive data was last reviewed 2020 Blood 05/09/2021 4:35 AM CRINKLING MACHINE OPERATOR 05/09/2021 4:54 AM CRINKLING MACHINE OPERATOR Javon Kauffman MD LAB BLOOD ORDERABLES F inal Result [facility] [id number] [facility] [place] [address] * (ABNORMAL) Differential, auto (05/09/2021 4:35 AM CRINKLING MACHINE OPERATOR) Neutrophil abs 3.8 1.7 - 6.5 K/cumm CERNER Imm gran abs 0.0 0.0 - 0.1 K/cumm [facility] Lymphocyte abs 1.6 0.8 - 3.3 K/cumm [facility] Monocyte abs 0.5 0.2 - 0.8 K/cumm [facility] Eosinophil abs 0.8(H) 0.0 - 0.5 K/cumm [facility] Basophil abs 0.0 0.0 - 0.1 K/cumm [facility] Neutrophil pct 56.2 % [facility] Comment: Interpretive Data Percent cell count reference ranges are not reported, since discordance with absolute values may lead to misinterpretation of CBC data. Current Interpretive Data was last revised on 2017. Imm gran pct 0.4 % [facility] Comment: Interpretive Data Percent cell count reference ranges are not reported, since discordance with absolute values may lead to misinterpretation of CBC data. Current Interpretive Data was last revised on 2017. Lymphocyte pct 24.0 % [facility] Comment: Interpretive Data Percent cell count reference ranges are not reported, since discordance with absolute values may lead to misinterpretation of CBC data. Current Interpretive Data was last revised on 2017. Monocyte pct 6.7 % [facility] Comment: Interpretive Data Percent cell count reference ranges are not reported, since discordance with absolute values may lead to misinterpretation of CBC data. Current Interpretive Data was last revised on 2017. Eosinophil pct 12.1 % [facility] Comment: Interpretive Data Percent cell count reference ranges are not reported, since discordance with absolute values may lead to misinterpretation of CBC data. Current Interpretive Data was last revised on 2017. Basophil pct 0.6 % [facility] Comment: Interpretive Data Percent cell count reference ranges are not reported, since discordance with absolute values may lead to misinterpretation of CBC data. Current Interpretive Data was last revised on 2017. Blood 05/09/2021 4:35 AM CRINKLING MACHINE OPERATOR 05/09/2021 4:52 AM CRINKLING MACHINE OPERATOR Javon Kauffman MD LAB BLOOD ORDERABLES F inal Result [facility] [id number] Department [place] [address] * (ABNORMAL) Basic metabolic panel (05/09/2021 4:35 AM CRINKLING MACHINE OPERATOR) Sodium 140 135 - 145 mmol/L [facility] Potassium, pl 3.8 3.3 - 4.9 mmol/L [facility] Chloride 102 97 - 110 mmol/L [facility] CO2 29 22 - 32 mmol/L [facility] Anion gap 9 2 - 15 mmol/L [facility] BUN 9 8 - 25 mg/dL [facility] Creatinine 0.47(L) 0.60 - 1.10 mg/dL [facility] Glucose 121 70 - 199 mg/dL [facility] Comment: Interpretive Data Fasting glucose >/= 126 mg/dl is diagnostic for diabetes. ?? Fasting is defined as no caloric intake for at least 8 hours. Fasting glucose between 100 mg/dl to 125 mg/dl is diagnostic of prediabetes. In a patient with classic symptoms of hyperglycemia or hyperglycemic crisis, a random glucose >/= 200 mg/dl is diagnostic for diabetes. In the absence of unequivocal hyperglycemia, results should be confirmed by repeat testing. The classification and Diagnosis of Diabetes Diabetes Care 2017;40 (Suppl. 1):S11. Current interpretive data was last revised 2017. Calcium 8.7 8.5 - 10.3 mg/dL [facility] Blood 05/09/2021 4:35 AM CRINKLING MACHINE OPERATOR 05/09/2021 4:54 AM CRINKLING MACHINE OPERATOR Javon Kauffman MD LAB BLOOD ORDERABLES F inal Result [facility] [address] Department [place] [address] * (ABNORMAL) CBC with auto differential (05/09/2021 4:35 AM CRINKLING MACHINE OPERATOR) WBC 6.7 3.8 - 9.9 K/cumm [facility] Hgb 9.9(L) 11.9 - 15.5 g/dL [facility] Hct 33.3(L) 35.6 - 45.5 % [facility] Plt 176 150 - 400 K/cumm [facility] MPV 12.3 9.1 - 12.3 fL [facility] RBC 3.55(L) 3.90 - 5.20 M/cumm [facility] MCV 93.8 81.3 - 96.4 fL [facility] MCH 27.9 27.1 - 33.3 pg [facility] MCHC 29.7(L) 32.3 - 35.7 g/dL [facility] RDW CV 15.9(H) 11.1 - 14.9 % [facility] RDW SD 54.5(H) 35.7 - 48.1 fL [facility] NRBC abs 0.00 0.00 - 0.01 K/cumm [facility] Blood 05/09/2021 4:35 AM CRINKLING MACHINE OPERATOR 05/09/2021 4:52 AM CRINKLING MACHINE OPERATOR Javon Kauffman MD LAB BLOOD ORDERABLES F inal Result Performing Organization Address City/[facility]/ZIP Co de Phone Number [facility] [address] [facility] [place] [address] * POCT glucose (05/09/2021 2:55 AM CRINKLING MACHINE OPERATOR) Glucose, POC 124 70 - 199 mg/dL [facility] Blood 05/09/2021 2:55 AM CRINKLING MACHINE OPERATOR 05/09/2021 2:55 AM CRINKLING MACHINE OPERATOR Sarah Gross MD LAB POCT ORDERABLES - DEVICE F inal Result Performing Organization Address [facility] Co de Phone Number [facility] [place] [address] [place] [address] * (ABNORMAL) POCT glucose (05/08/2021 9:22 PM CRINKLING MACHINE OPERATOR) Glucose, POC 249(H) 70 - 199 mg/dL [facility] Blood 05/08/2021 9:22 PM CRINKLING MACHINE OPERATOR 05/08/2021 9:22 PM CRINKLING MACHINE OPERATOR Sarah Gross MD LAB POCT ORDERABLES - DEVICE F inal Result Performing Organization Address [facility] Co de Phone Number [facility] [address] [place], [place] [id number] * POCT glucose (05/08/2021 5:10 PM CRINKLING MACHINE OPERATOR) Glucose, POC 174 70 - 199 mg/dL [facility] Blood 05/08/2021 5:10 PM CRINKLING MACHINE OPERATOR 05/08/2021 5:10 PM CRINKLING MACHINE OPERATOR Sarah Gross MD LAB POCT ORDERABLES - DEVICE F inal Result Performing Organization Address City/[facility]/ZIP Co de Phone Number [facility] [place] [address] [place], [place] [id number] * POCT glucose (05/08/2021 11:45 AM CRINKLING MACHINE OPERATOR) Glucose, POC 150 70 - 199 mg/dL [facility] Blood 05/08/2021 11:4 5 AM CRINKLING MACHINE OPERATOR 05/08/2021 11:45 AM CRINKLING MACHINE OPERATOR Sarah Gross MD LAB POCT ORDERABLES - DEVICE F inal Result Performing Organization Address [facility] de Phone Number [facility] [address] [facility] [place] [address] * POCT glucose (05/08/2021 6:10 AM CRINKLING MACHINE OPERATOR) Glucose, POC 134 70 - 199 mg/dL [facility] Blood 05/08/2021 6:10 AM CRINKLING MACHINE OPERATOR 05/08/2021 6:10 AM CRINKLING MACHINE OPERATOR Sarah Gross MD LAB POCT ORDERABLES - DEVICE F inal Result Performing Organization Address [facility] de Phone Number [facility] [phone] [facility] [place] [address] * eGFR (05/08/2021 4:43 AM CRINKLING MACHINE OPERATOR) Pathologist [facility] eGFR 118 mL/min/1.7 3 m2 [facility] Comment: Interpretive Data Reference Interval Normal ?>/= 90 mL/min/1.73m2 Mildly decreased* ? 60 - 89 mL/min/1.73m2 Mildly to moderately decreased ?45 - 59 mL/min/1.73m2 Moderately to severely decreased ??30 - 44 mL/min/1.73m2 Severely decreased ?15 - 29 mL/min/1.73m2 Kidney Failure ?< 15 ??mL/min/1.73m2 *Relative to young adult level Estimated glomerular filtration rate is determined by the CKD-EPI equation recommended by the National Kidney Foundation (KDIGO 2012 Clinical Practice Guideline for the Evaluation and Management of Chronic Kidney Disease. Kidney Intnl Suppl Jun 2012;3:1). The CKD-EPI equation should not be used for patients with unstable renal function and has not been validated in children and those over 70. Current interpretive data was last reviewed 2020 Blood 05/08/2021 4:43 AM CRINKLING MACHINE OPERATOR 05/08/2021 5:29 AM CRINKLING MACHINE OPERATOR us Javon Kauffman MD LAB BLOOD ORDERABLES F inal Result [facility] [address] Department [place] [address] * (ABNORMAL) Differential, auto (05/08/2021 4:43 AM CRINKLING MACHINE OPERATOR) Neutrophil abs 3.7 1.7 - 6.5 K/cumm [facility] Imm gran abs 0.0 0.0 - 0.1 K/cumm [facility] Lymphocyte abs 1.6 0.8 - 3.3 K/cumm [facility] Monocyte abs 0.4 0.2 - 0.8 K/cumm [facility] Eosinophil abs 0.9(H) 0.0 - 0.5 K/cumm [facility] Basophil abs 0.0 0.0 - 0.1 K/cumm [facility] Neutrophil pct 56.4 % [facility] Comment: Interpretive Data Percent cell count reference ranges are not reported, since discordance with absolute values may lead to misinterpretation of CBC data. Current Interpretive Data was last revised on 2017. Imm gran pct 0.3 % [facility] Comment: Interpretive Data Percent cell count reference ranges are not reported, since discordance with absolute values may lead to misinterpretation of CBC data. Current Interpretive Data was last revised on 2017. Lymphocyte pct 23.6 % [facility] Comment: Interpretive Data Percent cell count reference ranges are not reported, since discordance with absolute values may lead to misinterpretation of CBC data. Current Interpretive Data was last revised on 2017. Monocyte pct 6.2 % [facility] Comment: Interpretive Data Percent cell count reference ranges are not reported, since discordance with absolute values may lead to misinterpretation of CBC data. Current Interpretive Data was last revised on 2017. Eosinophil pct 12.9 % [facility] Comment: Interpretive Data Percent cell count reference ranges are not reported, since discordance with absolute values may lead to misinterpretation of CBC data. Current Interpretive Data was last revised on 2017. Basophil pct 0.6 % [facility] Comment: Interpretive Data Percent cell count reference ranges are not reported, since discordance with absolute values may lead to misinterpretation of CBC data. Current Interpretive Data was last revised on 2017. Blood 05/08/2021 4:43 AM CRINKLING MACHINE OPERATOR 05/08/2021 5:29 AM CRINKLING MACHINE OPERATOR us Javon Kuaffman MD LAB BLOOD ORDERABLES F inal Result [facility] [address] [address] Department [place] [address] * (ABNORMAL) Basic metabolic panel (05/08/2021 4:43 AM CRINKLING MACHINE OPERATOR) Sodium 144 135 - 145 mmol/L [facility] Potassium, pl 4.0 3.3 - 4.9 mmol/L [facility] Chloride 106 97 - 110 mmol/L [facility] CO2 30 22 - 32 mmol/L [facility] Anion gap 8 2 - 15 mmol/L [facility] BUN 11 8 - 25 mg/dL [facility] Creatinine 0.48(L) 0.60 - 1.10 mg/dL [facility] Glucose 149 70 - 199 mg/dL [facility] Comment: Interpretive Data Fasting glucose >/= 126 mg/dl is diagnostic for diabetes. ?? Fasting is defined as no caloric intake for at least 8 hours. Fasting glucose between 100 mg/dl to 125 mg/dl is diagnostic of prediabetes. In a patient with classic symptoms of hyperglycemia or hyperglycemic crisis, a random glucose >/= 200 mg/dl is diagnostic for diabetes. In the absence of unequivocal hyperglycemia, results should be confirmed by repeat testing. The classification and Diagnosis of Diabetes Diabetes Care 2017;40 (Suppl. 1):S11. Current interpretive data was last revised 2017. Calcium 9.0 8.5 - 10.3 mg/dL [facility] Blood 05/08/2021 4:43 AM CRINKLING MACHINE OPERATOR 05/08/2021 5:29 AM CRINKLING MACHINE OPERATOR Javon Kauffman MD LAB BLOOD ORDERABLES F inal Result Performing Organization Address City/[facility]/ZIP Co de Phone Number [facility] [address] [address] [place] [address] * (ABNORMAL) CBC with auto differential (05/08/2021 4:43 AM CRINKLING MACHINE OPERATOR) WBC 6.6 3.8 - 9.9 K/cumm [facility] Hgb 10.2(L) 11.9 - 15.5 g/dL [facility] Hct 33.5(L) 35.6 - 45.5 % [facility] Plt 180 150 - 400 K/cumm [facility] MPV 12.6(H) 9.1 - 12.3 fL [facility] RBC 3.56(L) 3.90 - 5.20 M/cumm [facility] MCV 94.1 81.3 - 96.4 fL [facility] MCH 28.7 27.1 - 33.3 pg [facility] MCHC 30.4(L) 32.3 - 35.7 g/dL [facility] RDW CV 15.8(H) 11.1 - 14.9 % [facility] RDW SD 54.0(H) 35.7 - 48.1 fL [facility] NRBC abs 0.00 0.00 - 0.01 K/cumm [facility] Blood 05/08/2021 4:43 AM CRINKLING MACHINE OPERATOR 05/08/2021 5:29 AM CRINKLING MACHINE OPERATOR Javon Kauffman MD LAB BLOOD ORDERABLES F inal Result Performing Organization Address City/[facility]/ZIP Co de Phone Number [place] [address] [address] Department [employer] [place] [address] * POCT glucose (05/08/2021 3:08 AM CRINKLING MACHINE OPERATOR) Glucose, POC 147 70 - 199 mg/dL [facility] Blood 05/08/2021 3:08 AM CRINKLING MACHINE OPERATOR 05/08/2021 3:08 AM CRINKLING MACHINE OPERATOR us Valentina Oates MD LAB POCT ORDERABLES - DEV ICE Final Result Performing Organization Address [facility] Co de Phone Number [place] [address] [address] [facility] [place] [address] * (ABNORMAL) POCT glucose (05/07/2021 9:03 PM CRINKLING MACHINE OPERATOR) Glucose, POC 205(H) 70 - 199 mg/dL [facility] Blood 05/07/2021 9:03 PM CRINKLING MACHINE OPERATOR 05/07/2021 9:03 PM CRINKLING MACHINE OPERATOR us Valentina Oates MD LAB POCT ORDERABLES - DEV ICE Final Result Performing Organization Address [facility] Co de Phone Number [place] [address] [address] [facility] [place] [address] * POCT glucose (05/07/2021 5:26 PM CRINKLING MACHINE OPERATOR) Glucose, POC 173 70 - 199 mg/dL [facility] Blood 05/07/2021 5:26 PM CRINKLING MACHINE OPERATOR 05/07/2021 5:26 PM CRINKLING MACHINE OPERATOR us Valentina Oates MD LAB POCT ORDERABLES - DEV ICE Final Result Performing Organization Address [facility] Co de Phone Number [place] [address] [address] [facility] [place] [address] * (ABNORMAL) POCT glucose (05/07/2021 11:40 AM CRINKLING MACHINE OPERATOR) Glucose, POC 258(H) 70 - 199 mg/dL [facility] Blood 05/07/2021 11:4 0 AM CRINKLING MACHINE OPERATOR 05/07/2021 11:40 AM CRINKLING MACHINE OPERATOR us Valentina Oates MD LAB POCT ORDERABLES - DEV ICE Final Result Performing Organization Address [facility] de Phone Number [facility] [address] [address] [place] [address] * POCT glucose (05/07/2021 6:24 AM CRINKLING MACHINE OPERATOR) Pathologist [facility] Glucose, POC 141 70 - 199 mg/dL [facility] Blood 05/07/2021 6:24 AM CRINKLING MACHINE OPERATOR 05/07/2021 6:24 AM CRINKLING MACHINE OPERATOR Valentina Oates MD LAB POCT ORDERABLES - DEV ICE Final Result Performing Organization Address [facility] Phone Number HEIDI [address] [address] Department [place] [address] * eGFR (05/07/2021 4:19 AM CRINKLING MACHINE OPERATOR) Pathologist [facility] eGFR 111 mL/min/1.7 3 m2 [facility] Comment: Interpretive Data Reference Interval Normal ?>/= 90 mL/min/1.73m2 Mildly decreased* ? 60 - 89 mL/min/1.73m2 Mildly to moderately decreased ?45 - 59 mL/min/1.73m2 Moderately to severely decreased ??30 - 44 mL/min/1.73m2 Severely decreased ?15 - 29 mL/min/1.73m2 Kidney Failure ?< 15 ??mL/min/1.73m2 *Relative to young adult level Estimated glomerular filtration rate is determined by the CKD-EPI equation recommended by the National Kidney Foundation (KDIGO 2012 Clinical Practice Guideline for the Evaluation and Management of Chronic Kidney Disease. Kidney Intnl Suppl Jun 2012;3:1). The CKD-EPI equation should not be used for patients with unstable renal function and has not been validated in children and those over 70. Current interpretive data was last reviewed 2020 Blood 05/07/2021 4:19 AM CRINKLING MACHINE OPERATOR 05/07/2021 4:38 AM CRINKLING MACHINE OPERATOR us Javon Kauffman MD LAB BLOOD ORDERABLES F inal Result [facility] [address] [address] Department [place] [address] * (ABNORMAL) Differential, auto (05/07/2021 4:19 AM CRINKLING MACHINE OPERATOR) Neutrophil abs 4.4 1.7 - 6.5 K/[facility] Imm gran abs 0.0 0.0 - 0.1 K/cumm [facility] Lymphocyte abs 2.0 0.8 - 3.3 K/cumm [facility] Monocyte abs 0.5 0.2 - 0.8 K/cumm [facility] Eosinophil abs 1.0(H) 0.0 - 0.5 K/cumm [facility] Basophil abs 0.1 0.0 - 0.1 K/cumm [facility] Neutrophil pct 55.4 % [facility] Comment: Interpretive Data Percent cell count reference ranges are not reported, since discordance with absolute values may lead to misinterpretation of CBC data. Current Interpretive Data was last revised on 2017. Imm gran pct 0.4 % [facility] Comment: Interpretive Data Percent cell count reference ranges are not reported, since discordance with absolute values may lead to misinterpretation of CBC data. Current Interpretive Data was last revised on 2017. Lymphocyte pct 25.1 % [facility] Comment: Interpretive Data Percent cell count reference ranges are not reported, since discordance with absolute values may lead to misinterpretation of CBC data. Current Interpretive Data was last revised on 2017. Monocyte pct 6.4 % [facility] Comment: Interpretive Data Percent cell count reference ranges are not reported, since discordance with absolute values may lead to misinterpretation of CBC data. Current Interpretive Data was last revised on 2017. Eosinophil pct 12.1 % [facility] Comment: Interpretive Data Percent cell count reference ranges are not reported, since discordance with absolute values may lead to misinterpretation of CBC data. Current Interpretive Data was last revised on 2017. Basophil pct 0.6 % [facility] Comment: Interpretive Data Percent cell count reference ranges are not reported, since discordance with absolute values may lead to misinterpretation of CBC data. Current Interpretive Data was last revised on 2017. Blood 05/07/2021 4:19 AM CRINKLING MACHINE OPERATOR 05/07/2021 4:37 AM CRINKLING MACHINE OPERATOR us Javon Kauffman MD LAB BLOOD ORDERABLES F inal Result [facility] [address] [address] Department [place] [address] * (ABNORMAL) Basic metabolic panel (05/07/2021 4:19 AM CRINKLING MACHINE OPERATOR) Sodium 139 135 - 145 mmol/L [facility] Potassium, pl 3.9 3.3 - 4.9 mmol/L [facility] Chloride 99 97 - 110 mmol/L [facility] CO2 30 22 - 32 mmol/L [facility] Anion gap 10 2 - 15 mmol/L [facility] BUN 13 8 - 25 mg/dL [facility] Creatinine 0.57(L) 0.60 - 1.10 mg/dL [facility] Glucose 144 70 - 199 mg/dL [facility] Comment: Interpretive Data Fasting glucose >/= 126 mg/dl is diagnostic for diabetes. ?? Fasting is defined as no caloric intake for at least 8 hours. Fasting glucose between 100 mg/dl to 125 mg/dl is diagnostic of prediabetes. In a patient with classic symptoms of hyperglycemia or hyperglycemic crisis, a random glucose >/= 200 mg/dl is diagnostic for diabetes. In the absence of unequivocal hyperglycemia, results should be confirmed by repeat testing. The classification and Diagnosis of Diabetes Diabetes Care 2017;40 (Suppl. 1):S11. Current interpretive data was last revised 2017. Calcium 8.8 8.5 - 10.3 mg/dL [facility] Blood 05/07/2021 4:19 AM CRINKLING MACHINE OPERATOR 05/07/2021 4:38 AM CRINKLING MACHINE OPERATOR Javon Kauffman MD LAB BLOOD ORDERABLES F inal Result Performing Organization Address [facility] Co de Phone Number [place] [address] [address] Department [employer] [place], [place] [id number] * (ABNORMAL) CBC with auto differential (05/07/2021 4:19 AM CRINKLING MACHINE OPERATOR) WBC 7.9 3.8 - 9.9 K/cumm [facility] Hgb 10.5(L) 11.9 - 15.5 g/dL [facility] Hct 34.2(L) 35.6 - 45.5 % [facility] Plt 197 150 - 400 K/cumm [facility] MPV 12.3 9.1 - 12.3 fL [facility] RBC 3.76(L) 3.90 - 5.20 M/cumm [facility] MCV 91.0 81.3 - 96.4 fL [facility] MCH 27.9 27.1 - 33.3 pg [facility] MCHC 30.7(L) 32.3 - 35.7 g/dL [facility] RDW CV 15.7(H) 11.1 - 14.9 % [facility] RDW SD 51.7(H) 35.7 - 48.1 fL [facility] NRBC abs 0.00 0.00 - 0.01 K/cumm [facility] Blood 05/07/2021 4:19 AM CRINKLING MACHINE OPERATOR 05/07/2021 4:37 AM CRINKLING MACHINE OPERATOR Javon Kauffman MD LAB BLOOD ORDERABLES F inal Result Performing Organization Address [facility]/ZIP Co de Phone Number [place] [address] Department [employer] [place], [place] [phone] * POCT glucose (05/07/2021 2:24 AM CRINKLING MACHINE OPERATOR) Glucose, POC 133 70 - 199 mg/dL [facility] Blood 05/07/2021 2:24 AM CRINKLING MACHINE OPERATOR 05/07/2021 2:24 AM CRINKLING MACHINE OPERATOR us Vaelntina Oates MD LAB POCT ORDERABLES - DEV ICE Final Result Performing Organization Address [facility] Co de Phone Number [place] [address] [address] [facility] [place] [address] * POCT glucose (05/06/2021 8:58 PM CRINKLING MACHINE OPERATOR) Glucose, POC 192 70 - 199 mg/dL [facility] Blood 05/06/2021 8:58 PM CRINKLING MACHINE OPERATOR 05/06/2021 8:58 PM CRINKLING MACHINE OPERATOR us Valentina Oates MD LAB POCT ORDERABLES - DEV ICE Final Result Performing Organization Address [facility] de Phone Number [place] [address] [address] [facility] [place] [address] * POCT glucose (05/06/2021 4:38 PM CRINKLING MACHINE OPERATOR) Glucose, POC 180 70 - 199 mg/dL [facility] Blood 05/06/2021 4:38 PM CRINKLING MACHINE OPERATOR 05/06/2021 4:38 PM CRINKLING MACHINE OPERATOR us Valentina Oates MD LAB POCT ORDERABLES - DEV ICE Final Result Performing Organization Address [facility] de Phone Number [place] [address] [address] [facility] [place] [address] * (ABNORMAL) POCT glucose (05/06/2021 11:14 AM CRINKLING MACHINE OPERATOR) Glucose, POC 272(H) 70 - 199 mg/dL [facility] Blood 05/06/2021 11:1 4 AM CRINKLING MACHINE OPERATOR 05/06/2021 11:14 AM CRINKLING MACHINE OPERATOR us Valentina Oates MD LAB POCT ORDERABLES - DEV ICE Final Result Performing Organization Address [facility] Co de Phone Number [place] [address] [address] [facility] [place] [address] * eGFR (05/06/2021 7:13 AM CRINKLING MACHINE OPERATOR) eGFR 119 mL/min/1.7 3 m2 [facility] Comment: Interpretive Data Reference Interval Normal ?>/= 90 mL/min/1.73m2 Mildly decreased* ? 60 - 89 mL/min/1.73m2 Mildly to moderately decreased ?45 - 59 mL/min/1.73m2 Moderately to severely decreased ??30 - 44 mL/min/1.73m2 Severely decreased ?15 - 29 mL/min/1.73m2 Kidney Failure ?< 15 ??mL/min/1.73m2 *Relative to young adult level Estimated glomerular filtration rate is determined by the CKD-EPI equation recommended by the National Kidney Foundation (KDIGO 2012 Clinical Practice Guideline for the Evaluation and Management of Chronic Kidney Disease. Kidney Intnl Suppl Jun 2012;3:1). The CKD-EPI equation should not be used for patients with unstable renal function and has not been validated in children and those over 70. Current interpretive data was last reviewed 2020 Blood 05/06/2021 7:13 AM CRINKLING MACHINE OPERATOR 05/06/2021 7:44 AM CRINKLING MACHINE OPERATOR us Javon Kauffman MD LAB BLOOD ORDERABLES F inal Result [place] [address] [address] Department [place] [address] * (ABNORMAL) Differential, auto (05/06/2021 7:13 AM CRINKLING MACHINE OPERATOR) Neutrophil abs 3.8 1.7 - 6.5 K/cumm [facility] Imm gran abs 0.0 0.0 - 0.1 K/cumm [facility] Lymphocyte abs 1.5 0.8 - 3.3 K/cumm [facility] Monocyte abs 0.5 0.2 - 0.8 K/cumm [facility] Eosinophil abs 0.9(H) 0.0 - 0.5 K/cumm [facility] Basophil abs 0.1 0.0 - 0.1 K/cumm [facility] Neutrophil pct 56.3 % [facility] Comment: Interpretive Data Percent cell count reference ranges are not reported, since discordance with absolute values may lead to misinterpretation of CBC data. Current Interpretive Data was last revised on 2017. Imm gran pct 0.3 % [facility] Comment: Interpretive Data Percent cell count reference ranges are not reported, since discordance with absolute values may lead to misinterpretation of CBC data. Current Interpretive Data was last revised on 2017. Lymphocyte pct 21.5 % [facility] Comment: Interpretive Data Percent cell count reference ranges are not reported, since discordance with absolute values may lead to misinterpretation of CBC data. Current Interpretive Data was last revised on 2017. Monocyte pct 7.4 % [facility] Comment: Interpretive Data Percent cell count reference ranges are not reported, since discordance with absolute values may lead to misinterpretation of CBC data. Current Interpretive Data was last revised on 2017. Eosinophil pct 13.8 % [facility] Comment: Interpretive Data Percent cell count reference ranges are not reported, since discordance with absolute values may lead to misinterpretation of CBC data. Current Interpretive Data was last revised on 2017. Basophil pct 0.7 % [facility] Comment: Interpretive Data Percent cell count reference ranges are not reported, since discordance with absolute values may lead to misinterpretation of CBC data. Current Interpretive Data was last revised on 2017. Blood 05/06/2021 7:13 AM CRINKLING MACHINE OPERATOR 05/06/2021 7:44 AM CRINKLING MACHINE OPERATOR us Javon Kauffman MD LAB BLOOD ORDERABLES F inal Result [place] [address] [address] Department of Laboratories [place], [place] [id number] * (ABNORMAL) Basic metabolic panel (05/06/2021 7:13 AM CRINKLING MACHINE OPERATOR) Sodium 139 135 - 145 mmol/L [facility] Potassium, pl 4.0 3.3 - 4.9 mmol/L [facility] Chloride 99 97 - 110 mmol/L [facility] CO2 31 22 - 32 mmol/L [facility] Anion gap 9 2 - 15 mmol/L [facility] BUN 10 8 - 25 mg/dL [facility] Creatinine 0.46(L) 0.60 - 1.10 mg/dL [facility] Glucose 143 70 - 199 mg/dL [facility] Comment: Interpretive Data Fasting glucose >/= 126 mg/dl is diagnostic for diabetes. ?? Fasting is defined as no caloric intake for at least 8 hours. Fasting glucose between 100 mg/dl to 125 mg/dl is diagnostic of prediabetes. In a patient with classic symptoms of hyperglycemia or hyperglycemic crisis, a random glucose >/= 200 mg/dl is diagnostic for diabetes. In the absence of unequivocal hyperglycemia, results should be confirmed by repeat testing. The classification and Diagnosis of Diabetes Diabetes Care 2017;40 (Suppl. 1):S11. Current interpretive data was last revised 2017. Calcium 8.9 8.5 - 10.3 mg/dL [facility] Blood 05/06/2021 7:13 AM CRINKLING MACHINE OPERATOR 05/06/2021 7:44 AM CRINKLING MACHINE OPERATOR us Javon Kauffman MD LAB BLOOD ORDERABLES F inal Result [facility] [address] [address] Department [place] [address] * (ABNORMAL) CBC with auto differential (05/06/2021 7:13 AM CRINKLING MACHINE OPERATOR) WBC 6.8 3.8 - 9.9 K/cumm [facility] Hgb 10.7(L) 11.9 - 15.5 g/dL [facility] Hct 33.9(L) 35.6 - 45.5 % [facility] Plt 193 150 - 400 K/cumm [facility] MPV 12.3 9.1 - 12.3 fL [facility] RBC 3.78(L) 3.90 - 5.20 M/cumm [facility] MCV 89.7 81.3 - 96.4 fL [facility] MCH 28.3 27.1 - 33.3 pg [facility] MCHC 31.6(L) 32.3 - 35.7 g/dL [facility] RDW CV 15.6(H) 11.1 - 14.9 % [facility] RDW SD 51.4(H) 35.7 - 48.1 fL [facility] NRBC abs 0.00 0.00 - 0.01 K/cumm [facility] Blood 05/06/2021 7:13 AM CRINKLING MACHINE OPERATOR 05/06/2021 7:44 AM CRINKLING MACHINE OPERATOR Javon Kauffman MD LAB BLOOD ORDERABLES F inal Result Performing Organization Address [facility] Co de Phone Number HEIDI [address] [address] [facility] [employer] [place], [place] [phone] * (ABNORMAL) POCT glucose (05/05/2021 8:39 PM CRINKLING MACHINE OPERATOR) Glucose, POC 259(H) 70 - 199 mg/dL [facility] Blood 05/05/2021 8:39 PM CRINKLING MACHINE OPERATOR 05/05/2021 8:39 PM CRINKLING MACHINE OPERATOR Laura Chung MD LAB POCT ORDERABLES - DEVICE Final Result Performing Organization Address [facility] Co de Phone Number [facility] [address] [address] Department [employer] [place], [place] [phone] * POCT glucose (05/05/2021 4:42 PM CRINKLING MACHINE OPERATOR) Glucose, POC 144 70 - 199 mg/dL [facility] Blood 05/05/2021 4:42 PM CRINKLING MACHINE OPERATOR 05/05/2021 4:42 PM CRINKLING MACHINE OPERATOR Laura Chung MD LAB POCT ORDERABLES - DEVICE Final Result Performing Organization Address [facility] Co de Phone Number [facility] [address] [address] [facility] [place] [address] * POCT glucose (05/05/2021 12:03 PM CRINKLING MACHINE OPERATOR) Glucose, POC 132 70 - 199 mg/dL [facility] Blood 05/05/2021 12:0 3 PM CRINKLING MACHINE OPERATOR 05/05/2021 12:03 PM CRINKLING MACHINE OPERATOR Laura Chung MD LAB POCT ORDERABLES - DEVICE Final Result [facility] [address] [address] Department [place] [address] * eGFR (05/05/2021 10:24 AM CRINKLING MACHINE OPERATOR) eGFR 118 mL/min/1.7 3 m2 [facility] Comment: Interpretive Data Reference Interval Normal ?>/= 90 mL/min/1.73m2 Mildly decreased* ? 60 - 89 mL/min/1.73m2 Mildly to moderately decreased ?45 - 59 mL/min/1.73m2 Moderately to severely decreased ??30 - 44 mL/min/1.73m2 Severely decreased ?15 - 29 mL/min/1.73m2 Kidney Failure ?< 15 ??mL/min/1.73m2 *Relative to young adult level Estimated glomerular filtration rate is determined by the CKD-EPI equation recommended by the National Kidney Foundation (KDIGO 2012 Clinical Practice Guideline for the Evaluation and Management of Chronic Kidney Disease. Kidney Intnl Suppl Jun 2012;3:1). The CKD-EPI equation should not be used for patients with unstable renal function and has not been validated in children and those over 70. Current interpretive data was last reviewed 2020 Blood 05/05/2021 10:2 4 AM CRINKLING MACHINE OPERATOR 05/05/2021 10:47 AM CRINKLING MACHINE OPERATOR us Javon Kauffman MD LAB BLOOD ORDERABLES F inal Result [facility] [address] [address] Department [place] [address] * (ABNORMAL) Differential, auto (05/05/2021 10:24 AM CRINKLING MACHINE OPERATOR) Neutrophil abs 4.6 1.7 - 6.5 K/cumm [facility] Imm gran abs 0.0 0.0 - 0.1 K/cumm [facility] Lymphocyte abs 1.3 0.8 - 3.3 K/cumm [facility] Monocyte abs 0.5 0.2 - 0.8 K/cumm [facility] Eosinophil abs 0.8(H) 0.0 - 0.5 K/cumm [facility] Basophil abs 0.0 0.0 - 0.1 K/cumm [facility] Neutrophil pct 63.3 % [facility] Comment: Interpretive Data Percent cell count reference ranges are not reported, since discordance with absolute values may lead to misinterpretation of CBC data. Current Interpretive Data was last revised on 2017. Imm gran pct 0.3 % [facility] Comment: Interpretive Data Percent cell count reference ranges are not reported, since discordance with absolute values may lead to misinterpretation of CBC data. Current Interpretive Data was last revised on 2017. Lymphocyte pct 18.1 % [facility] Comment: Interpretive Data Percent cell count reference ranges are not reported, since discordance with absolute values may lead to misinterpretation of CBC data. Current Interpretive Data was last revised on 2017. Monocyte pct 7.0 % [facility] Comment: Interpretive Data Percent cell count reference ranges are not reported, since discordance with absolute values may lead to misinterpretation of CBC data. Current Interpretive Data was last revised on 2017. Eosinophil pct 10.8 % [facility] Comment: Interpretive Data Percent cell count reference ranges are not reported, since discordance with absolute values may lead to misinterpretation of CBC data. Current Interpretive Data was last revised on 2017. Basophil pct 0.5 % [facility] Comment: Interpretive Data Percent cell count reference ranges are not reported, since discordance with absolute values may lead to misinterpretation of CBC data. Current Interpretive Data was last revised on 2017. Blood 05/05/2021 10:2 4 AM CRINKLING MACHINE OPERATOR 05/05/2021 10:47 AM CRINKLING MACHINE OPERATOR Javon Kauffman MD LAB BLOOD ORDERABLES F inal Result Performing Organization Address [facility] Co de Phone Number [facility] [address] [address] Department [place] [address] * (ABNORMAL) Basic metabolic panel (05/05/2021 10:24 AM CRINKLING MACHINE OPERATOR) Pathologist [facility] Sodium 137 135 - 145 mmol/L [facility] Potassium, pl 3.7 3.3 - 4.9 mmol/L [facility] Chloride 97 97 - 110 mmol/L [facility] CO2 30 22 - 32 mmol/L [facility] Anion gap 10 2 - 15 mmol/L [facility] BUN 11 8 - 25 mg/dL [facility] Creatinine 0.48(L) 0.60 - 1.10 mg/dL [facility] Glucose 210(H) 70 - 199 mg/dL [facility] Comment: Interpretive Data Fasting glucose >/= 126 mg/dl is diagnostic for diabetes. ?? Fasting is defined as no caloric intake for at least 8 hours. Fasting glucose between 100 mg/dl to 125 mg/dl is diagnostic of prediabetes. In a patient with classic symptoms of hyperglycemia or hyperglycemic crisis, a random glucose >/= 200 mg/dl is diagnostic for diabetes. In the absence of unequivocal hyperglycemia, results should be confirmed by repeat testing. The classification and Diagnosis of Diabetes Diabetes Care 2017;40 (Suppl. 1):S11. Current interpretive data was last revised 2017. Calcium 8.8 8.5 - 10.3 mg/dL [facility] Blood 05/05/2021 10:2 4 AM CRINKLING MACHINE OPERATOR 05/05/2021 10:47 AM CRINKLING MACHINE OPERATOR Javon Kauffman MD LAB BLOOD ORDERABLES F inal Result Performing Organization Address [facility] Co de Phone Number [facility] [address] [address] [facility] [place] [address] * (ABNORMAL) CBC with auto differential (05/05/2021 10:24 AM CRINKLING MACHINE OPERATOR) WBC 7.3 3.8 - 9.9 K/cumm [facility] Hgb 10.6(L) 11.9 - 15.5 g/dL [facility] Hct 33.7(L) 35.6 - 45.5 % [facility] Plt 210 150 - 400 K/cumm [facility] MPV 12.3 9.1 - 12.3 fL [facility] RBC 3.74(L) 3.90 - 5.20 M/cumm [facility] MCV 90.1 81.3 - 96.4 fL [facility] MCH 28.3 27.1 - 33.3 pg [facility] MCHC 31.5(L) 32.3 - 35.7 g/dL [facility] RDW CV 15.8(H) 11.1 - 14.9 % [facility] RDW SD 51.8(H) 35.7 - 48.1 fL [facility] NRBC abs 0.00 0.00 - 0.01 K/cumm [facility] Blood 05/05/2021 10:2 4 AM CRINKLING MACHINE OPERATOR 05/05/2021 10:47 AM CRINKLING MACHINE OPERATOR Javon Kauffman MD LAB BLOOD ORDERABLES F inal Result Performing Organization Address [facility] Co de Phone Number [facility] [address] [address] [facility] [place] [address] * POCT glucose (05/05/2021 6:23 AM CRINKLING MACHINE OPERATOR) Pathologist [facility] Glucose, POC 142 70 - 199 mg/dL [facility] Blood 05/05/2021 6:23 AM CRINKLING MACHINE OPERATOR 05/05/2021 6:23 AM CRINKLING MACHINE OPERATOR Laura Chung MD LAB POCT ORDERABLES - DEVICE Final Result Performing Organization Address City/[facility]/ZIP Co de Phone Number [facility] [address] [address] [facility] [place] [address] * (ABNORMAL) POCT glucose (05/04/2021 8:35 PM CRINKLING MACHINE OPERATOR) Glucose, POC 230(H) 70 - 199 mg/dL [facility] Blood 05/04/2021 8:35 PM CRINKLING MACHINE OPERATOR 05/04/2021 8:35 PM CRINKLING MACHINE OPERATOR Laura Chung MD LAB POCT ORDERABLES - DEVICE Final Result Performing Organization Address City/[facility]/ZIP Co de Phone Number [facility] [address] [address] [facility] [place] [address] * POCT glucose (05/04/2021 4:58 PM CRINKLING MACHINE OPERATOR) Glucose, POC 175 70 - 199 mg/dL [facility] Blood 05/04/2021 4:58 PM CRINKLING MACHINE OPERATOR 05/04/2021 4:58 PM CRINKLING MACHINE OPERATOR Laura Chung MD LAB POCT ORDERABLES - DEVICE Final Result Performing Organization Address [facility] Co de Phone Number HEIDI [phone] [facility] [place] [address] * POCT glucose (05/04/2021 1:36 PM CRINKLING MACHINE OPERATOR) Glucose, POC 116 70 - 199 mg/dL [facility] Blood 05/04/2021 1:36 PM CRINKLING MACHINE OPERATOR 05/04/2021 1:36 PM CRINKLING MACHINE OPERATOR Result [facility] Laura Chung MD LAB POCT ORDERABLES - DEVICE Final Result Performing Organization Address [facility] Co de Phone Number [facility] [id number] [facility] [facility] [place] [address] * Pro B-type natriuretic peptide (05/04/2021 10:31 AM CRINKLING MACHINE OPERATOR) NT-proBNP 19 <=300 pg/mL [facility] Comment: Interpretive Comments: A. Dyspnea in Acute Care Setting All Ages: ?< 300 pg/ml, acute heart failure unlikely. < 50 yrs: ?300 - 450 pg/ml, further investigation warranted. ? > 450 pg/ml, acute heart failure likely. 50 - 74 yrs: ? 300 - 900 pg/ml, further investigation warranted. ? > 900 pg/ml, acute heart failure likely . > or = 75 yrs: ? 450 - 1800 pg/ml, further investigation warranted. ? > 1800 pg/ml, acute heart failure likely. B. Non-acute Setting < 75 yrs ? < 125 pg/ml, rules out heart failure. ? > or = 125 pg/ml, further investigation warranted. > or = 75 yrs ?< 450 pg/ml, rules out heart failure. ? > or = 450 pg/ml, further investigation warranted. - Knowledge of each individual patient's NT-proBNP range may be more useful than using similar cut-points for every patient. Please note that marked elevations in NT-proBNP levels may be observed in state other than Left Ventricular Congestive Failure, including: acute coronary syndromes, right heart strain/failure (including pulmonary embolism and cor pulmonale), critical illness, renal failure, as well as advanced age. - References: 1. Zari SHAH et.al. Eur Heart J. 2006:27:330-337. 2. Sincere RW, Liane AM. J. AM Babita Cardiol: Cardiovasc Imag. 2009;2: 216- 225. Interpretive Data Last Revised Date: 2018. Blood 05/04/2021 10:3 1 AM CRINKLING MACHINE OPERATOR 05/04/2021 3:45 PM CRINKLING MACHINE OPERATOR us Flavio العلي MD LAB BLOOD ORDERABLES Fin al Result [place] [address] [address] Department of [employer] [place], [place] [id number] * eGFR (05/04/2021 10:31 AM CRINKLING MACHINE OPERATOR) eGFR 113 mL/min/1.7 3 m2 [facility] Comment: Interpretive Data Reference Interval Normal ?>/= 90 mL/min/1.73m2 Mildly decreased* ? 60 - 89 mL/min/1.73m2 Mildly to moderately decreased ?45 - 59 mL/min/1.73m2 Moderately to severely decreased ??30 - 44 mL/min/1.73m2 Severely decreased ?15 - 29 mL/min/1.73m2 Kidney Failure ?< 15 ??mL/min/1.73m2 *Relative to young adult level Estimated glomerular filtration rate is determined by the CKD-EPI equation recommended by the National Kidney Foundation (KDIGO 2012 Clinical Practice Guideline for the Evaluation and Management of Chronic Kidney Disease. Kidney Intnl Suppl Jun 2012;3:1). The CKD-EPI equation should not be used for patients with unstable renal function and has not been validated in children and those over 70. Current interpretive data was last reviewed 2020 Blood 05/04/2021 10:3 1 AM CRINKLING MACHINE OPERATOR 05/04/2021 11:15 AM CRINKLING MACHINE OPERATOR us Javon Kauffman MD LAB BLOOD ORDERABLES F inal Result [place] [address] [address] Department [place] [address] * (ABNORMAL) Differential, auto (05/04/2021 10:31 AM CRINKLING MACHINE OPERATOR) Neutrophil abs 5.6 1.7 - 6.5 K/cumm [facility] Imm gran abs 0.0 0.0 - 0.1 K/cumm [facility] Lymphocyte abs 1.2 0.8 - 3.3 K/cumm [facility] Monocyte abs 0.6 0.2 - 0.8 K/cumm [facility] Eosinophil abs 0.7(H) 0.0 - 0.5 K/cumm [facility] Basophil abs 0.0 0.0 - 0.1 K/cumm [facility] Neutrophil pct 67.9 % [facility] Comment: Interpretive Data Percent cell count reference ranges are not reported, since discordance with absolute values may lead to misinterpretation of CBC data. Current Interpretive Data was last revised on 2017. Imm gran pct 0.5 % [facility] Comment: Interpretive Data Percent cell count reference ranges are not reported, since discordance with absolute values may lead to misinterpretation of CBC data. Current Interpretive Data was last revised on 2017. Lymphocyte pct 14.5 % [facility] Comment: Interpretive Data Percent cell count reference ranges are not reported, since discordance with absolute values may lead to misinterpretation of CBC data. Current Interpretive Data was last revised on 2017. Monocyte pct 7.6 % [facility] Comment: Interpretive Data Percent cell count reference ranges are not reported, since discordance with absolute values may lead to misinterpretation of CBC data. Current Interpretive Data was last revised on 2017. Eosinophil pct 9.0 % [facility] Comment: Interpretive Data Percent cell count reference ranges are not reported, since discordance with absolute values may lead to misinterpretation of CBC data. Current Interpretive Data was last revised on 2017. Basophil pct 0.5 % [facility] Comment: Interpretive Data Percent cell count reference ranges are not reported, since discordance with absolute values may lead to misinterpretation of CBC data. Current Interpretive Data was last revised on 2017. Blood 05/04/2021 10:3 1 AM CRINKLING MACHINE OPERATOR 05/04/2021 11:15 AM CRINKLING MACHINE OPERATOR us Javon Kauffman MD LAB BLOOD ORDERABLES F inal Result [place] [address] [address] Department [place] [address] * (ABNORMAL) Basic metabolic panel (05/04/2021 10:31 AM CRINKLING MACHINE OPERATOR) Pathologist [facility] Sodium 139 135 - 145 mmol/L [facility] Potassium, pl 4.1 3.3 - 4.9 mmol/L [facility] Chloride 100 97 - 110 mmol/L [facility] CO2 30 22 - 32 mmol/L [facility] Anion gap 9 2 - 15 mmol/L [facility] BUN 11 8 - 25 mg/dL [facility] Creatinine 0.54(L) 0.60 - 1.10 mg/dL [facility] Glucose 195 70 - 199 mg/dL [facility] Comment: Interpretive Data Fasting glucose >/= 126 mg/dl is diagnostic for diabetes. ?? Fasting is defined as no caloric intake for at least 8 hours. Fasting glucose between 100 mg/dl to 125 mg/dl is diagnostic of prediabetes. In a patient with classic symptoms of hyperglycemia or hyperglycemic crisis, a random glucose >/= 200 mg/dl is diagnostic for diabetes. In the absence of unequivocal hyperglycemia, results should be confirmed by repeat testing. The classification and Diagnosis of Diabetes Diabetes Care 2017;40 (Suppl. 1):S11. Current interpretive data was last revised 2017. Calcium 8.8 8.5 - 10.3 mg/dL [facility] Blood 05/04/2021 10:3 1 AM CRINKLING MACHINE OPERATOR 05/04/2021 11:15 AM CRINKLING MACHINE OPERATOR Javon Kauffman MD LAB BLOOD ORDERABLES F inal Result [place] [address] [address] Department [place] [address] * (ABNORMAL) CBC with auto differential (05/04/2021 10:31 AM CRINKLING MACHINE OPERATOR) Pathologist [facility] WBC 8.2 3.8 - 9.9 K/cumm [facility] Hgb 10.9(L) 11.9 - 15.5 g/dL [facility] Hct 35.0(L) 35.6 - 45.5 % [facility] CH Plt 213 150 - 400 K/cumm [facility] CH MPV 12.5(H) 9.1 - 12.3 fL [facility] CH RBC 3.87(L) 3.90 - 5.20 M/cumm [facility] CH MCV 90.4 81.3 - 96.4 fL [facility] MCH 28.2 27.1 - 33.3 pg [facility] MCHC 31.1(L) 32.3 - 35.7 g/dL [facility] CH RDW CV 16.0(H) 11.1 - 14.9 % [facility] CH RDW SD 52.8(H) 35.7 - 48.1 fL [facility] CH NRBC abs 0.00 0.00 - 0.01 K/cumm [facility] Blood 05/04/2021 10:3 1 AM CRINKLING MACHINE OPERATOR 05/04/2021 11:15 AM CRINKLING MACHINE OPERATOR Javon Kauffman MD LAB BLOOD ORDERABLES F inal Result Performing Organization Address [facility] Co de Phone Number [facility] [address] [place] [address] * POCT glucose (05/04/2021 6:17 AM CRINKLING MACHINE OPERATOR) Glucose, POC 122 70 - 199 mg/dL [facility] Blood 05/04/2021 6:17 AM CRINKLING MACHINE OPERATOR 05/04/2021 6:17 AM CRINKLING MACHINE OPERATOR Laura Chung MD LAB POCT ORDERABLES - DEVICE Final Result Performing Organization Address [facility] Co de Phone Number [facility] [phone] [facility] [facility] [place] [address] * POCT glucose (05/04/2021 2:11 AM CRINKLING MACHINE OPERATOR) Glucose, POC 139 70 - 199 mg/dL [facility] Blood 05/04/2021 2:11 AM CRINKLING MACHINE OPERATOR 05/04/2021 2:11 AM CRINKLING MACHINE OPERATOR Laura Chung MD LAB POCT ORDERABLES - DEVICE Final Result Performing Organization Address [facility] Co de Phone Number HEIDI [address] [address] [employer] [place] [address] * POCT glucose (05/03/2021 8:35 PM CDT) Glucose, POC 162 70 - 199 mg/dL [facility] Blood 05/03/2021 8:35 PM CDT 05/03/2021 8:35 PM CDT Laura Chung MD LAB POCT ORDERABLES - DEVICE Final Result Performing Organization Address [facility] de Phone Number HEIDI [address] [facility] [place] [address] * (ABNORMAL) D-dimer, quantitative (05/03/2021 5:59 PM CDT) D-Dimer 3,856(H) <=499 ng/mL FEU [facility] Comment: Interpretive data FDA approved the D-dimer, in conjunction with a low or moderate pretest probability score, to exclude venous thromboembolic events (VTE) (PE and DVT) in outpatients when the D-dimer result is < 500 ng/ml FEU. ?? Evidence supports using an age-adjusted D-dimer cut-off for outpatients older than 50 (age x 10) to improve specificity without sacrificing sensitivity. Example: age 68, VTE cut-off 680 ng/ml FEU. References; Schouten HT et al. Brit Med J. 2013;346:f2492. Loretta et al. Annals Int Med. 2015;163:701-11. Current interpretive data was last revised on 2019. Blood 05/03/2021 5:59 PM CDT 05/03/2021 6:08 PM CDT us Flavio العلي MD LAB BLOOD ORDERABLES Fin al Result Performing Organization Address [facility] Co de Phone Number HEIDI [address] [facility] [place] [address] * POCT glucose (05/03/2021 4:46 PM CDT) Glucose, POC 114 70 - 199 mg/dL [facility] Blood 05/03/2021 4:46 PM CDT 05/03/2021 4:46 PM CDT Laura Chung MD LAB POCT ORDERABLES - DEVICE Final Result [place] [address] [address] Department [place] [address] * XR Chest 1 Vw Portable (05/03/2021 3:19 PM CDT) Anatomical Region Laterality Modality Body, Chest N/A Computed Radiogr aphy 05/03/2021 5:55 PM CDT Impressions 05/03/2021 5:55 PM CDT DIFFUSE BILATERAL INTERSTITIAL ALVEOLAR INFILTRATES. Electronically signed by: Silviano Whitehead M.D. Narrative 05/03/2021 5:55 PM CDT EXAMINATION: XR CHEST 1 VIEW HISTORY: Covid infection ORDER DATE: 05/03/2021 3:05 PM FINDINGS: There are diffuse bilateral interstitial alveolar infiltrates. ??The cardiac and mediastinal outlines are unremarkable. There are no significant pleural effusions . No significant abnormalities are noted in the spine or remainder of the bony thorax. Procedure Note Silviano Whitehead MD - 05/03/2021 EXAMINATION: XR CHEST 1 VIEW HISTORY: Covid infection ORDER DATE: 05/03/2021 3:05 PM FINDINGS: There are diffuse bilateral interstitial alveolar infiltrates. The cardiac and mediastinal outlines are unremarkable. There are no significant pleural effusions . No significant abnormalities are noted in the spine or remainder of the bony thorax. IMPRESSION: DIFFUSE BILATERAL INTERSTITIAL ALVEOLAR INFILTRATES. Electronically signed by: Silviano Whitehead M.D. us Flavio العلي MD IMG XR PROCEDURES Final Result * POCT glucose (05/03/2021 11:29 AM CDT) Glucose, POC 140 70 - 199 mg/dL [facility] Blood 05/03/2021 11:2 9 AM CDT 05/03/2021 11:29 AM CDT Laura Chung MD LAB POCT ORDERABLES - DEVICE Final Result Performing Organization Address [facility] Co de Phone Number [facility] [address] [address] Department [place] [address] * eGFR (05/03/2021 9:20 AM CDT) [facility] eGFR 121 mL/min/1.7 3 m2 [facility] Comment: Interpretive Data Reference Interval Normal ?>/= 90 mL/min/1.73m2 Mildly decreased* ? 60 - 89 mL/min/1.73m2 Mildly to moderately decreased ?45 - 59 mL/min/1.73m2 Moderately to severely decreased ??30 - 44 mL/min/1.73m2 Severely decreased ?15 - 29 mL/min/1.73m2 Kidney Failure ?< 15 ??mL/min/1.73m2 *Relative to young adult level Estimated glomerular filtration rate is determined by the CKD-EPI equation recommended by the National Kidney Foundation (KDIGO 2012 Clinical Practice Guideline for the Evaluation and Management of Chronic Kidney Disease. Kidney Intnl Suppl Jun 2012;3:1). The CKD-EPI equation should not be used for patients with unstable renal function and has not been validated in children and those over 70. Current interpretive data was last reviewed 2020 Blood 05/03/2021 9:20 AM CDT 05/03/2021 9:51 AM CDT us Javon Kauffman MD LAB BLOOD ORDERABLES F inal Result Performing Organization Address [facility]/ZIP Co de Phone Number HEIDI [address] Luisito Jones Department [place] [address] * (ABNORMAL) Differential, auto (05/03/2021 9:20 AM CDT) Neutrophil abs 8.5(H) 1.7 - 6.5 K/cumm [facility] Imm gran abs 0.0 0.0 - 0.1 K/cumm [facility] Lymphocyte abs 1.2 0.8 - 3.3 K/cumm [facility] Monocyte abs 0.6 0.2 - 0.8 K/cumm [facility] Eosinophil abs 0.6(H) 0.0 - 0.5 K/cumm [facility] Basophil abs 0.0 0.0 - 0.1 K/cumm [facility] Neutrophil pct 77.7 % [facility] Comment: Interpretive Data Percent cell count reference ranges are not reported, since discordance with absolute values may lead to misinterpretation of CBC data. Current Interpretive Data was last revised on 2017. Imm gran pct 0.3 % [facility] Comment: Interpretive Data Percent cell count reference ranges are not reported, since discordance with absolute values may lead to misinterpretation of CBC data. Current Interpretive Data was last revised on 2017. Lymphocyte pct 10.8 % [facility] Comment: Interpretive Data Percent cell count reference ranges are not reported, since discordance with absolute values may lead to misinterpretation of CBC data. Current Interpretive Data was last revised on 2017. Monocyte pct 5.8 % [facility] Comment: Interpretive Data Percent cell count reference ranges are not reported, since discordance with absolute values may lead to misinterpretation of CBC data. Current Interpretive Data was last revised on 2017. Eosinophil pct 5.1 % [facility] Comment: Interpretive Data Percent cell count reference ranges are not reported, since discordance with absolute values may lead to misinterpretation of CBC data. Current Interpretive Data was last revised on 2017. Basophil pct 0.3 % [facility] Comment: Interpretive Data Percent cell count reference ranges are not reported, since discordance with absolute values may lead to misinterpretation of CBC data. Current Interpretive Data was last revised on 2017. Blood 05/03/2021 9:20 AM CDT 05/03/2021 9:51 AM CDT Javon Kauffman MD LAB BLOOD ORDERABLES F inal Result Performing Organization Address [facility] Co de Phone Number [facility] [address] [address] Department [place] [address] * (ABNORMAL) Basic metabolic panel (05/03/2021 9:20 AM CDT) Pathologist [facility] Sodium 136 135 - 145 mmol/L [facility] Potassium, pl 3.9 3.3 - 4.9 mmol/L [facility] Chloride 99 97 - 110 mmol/L [facility] CH CO2 26 22 - 32 mmol/L [facility] Anion gap 11 2 - 15 mmol/L [facility] BUN 10 8 - 25 mg/dL [facility] Creatinine 0.44(L) 0.60 - 1.10 mg/dL [facility] Glucose 261(H) 70 - 199 mg/dL [facility] Comment: Interpretive Data Fasting glucose >/= 126 mg/dl is diagnostic for diabetes. ?? Fasting is defined as no caloric intake for at least 8 hours. Fasting glucose between 100 mg/dl to 125 mg/dl is diagnostic of prediabetes. In a patient with classic symptoms of hyperglycemia or hyperglycemic crisis, a random glucose >/= 200 mg/dl is diagnostic for diabetes. In the absence of unequivocal hyperglycemia, results should be confirmed by repeat testing. The classification and Diagnosis of Diabetes Diabetes Care 2017;40 (Suppl. 1):S11. Current interpretive data was last revised 2017. Calcium 8.9 8.5 - 10.3 mg/dL [facility] Blood 05/03/2021 9:20 AM CDT 05/03/2021 9:51 AM CDT Javon Kauffman MD LAB BLOOD ORDERABLES F inal Result Performing Organization Address [facility] Co de Phone Number [facility] [phone] [address] Department [place] [address] * (ABNORMAL) CBC with auto differential (05/03/2021 9:20 AM CDT) WBC 11.0(H) 3.8 - 9.9 K/cumm [facility] Hgb 10.8(L) 11.9 - 15.5 g/dL [facility] Hct 34.7(L) 35.6 - 45.5 % [facility] CH Plt 222 150 - 400 K/cumm [facility] CH MPV 12.9(H) 9.1 - 12.3 fL [facility] CH RBC 3.82(L) 3.90 - 5.20 M/cumm [facility] CH MCV 90.8 81.3 - 96.4 fL [facility] CH MCH 28.3 27.1 - 33.3 pg [facility] CH MCHC 31.1(L) 32.3 - 35.7 g/dL [facility] RDW CV 16.1(H) 11.1 - 14.9 % [facility] CH RDW SD 53.1(H) 35.7 - 48.1 fL [facility] NRBC abs 0.00 0.00 - 0.01 K/cumm [facility] Blood 05/03/2021 9:20 AM CDT 05/03/2021 9:51 AM CDT Javon Kauffman MD LAB BLOOD ORDERABLES F inal Result Performing Organization Address [facility] Co de Phone Number [place] [address] Luis[address] [facility] [employer] [place] [address] * POCT glucose (05/03/2021 6:47 AM CDT) Glucose, POC 161 70 - 199 mg/dL [facility] Blood 05/03/2021 6:47 AM CDT 05/03/2021 6:47 AM CDT Laura Chung MD LAB POCT ORDERABLES - DEVICE Final Result Performing Organization Address [facility] Co de Phone Number [facility] [address] Luis[address] Department [place] [address] * POCT glucose (05/03/2021 2:53 AM CDT) Glucose, POC 135 70 - 199 mg/dL [facility] Blood 05/03/2021 2:53 AM CDT 05/03/2021 2:53 AM CDT Laura Chung MD LAB POCT ORDERABLES - DEVICE Final Result Performing Organization Address [facility] Co de Phone Number [place] [address] [facility] [place] [address] * POCT glucose (05/02/2021 9:56 PM CDT) Glucose, POC 166 70 - 199 mg/dL [facility] Blood 05/02/2021 9:56 PM CDT 05/02/2021 9:56 PM CDT Laura Chung MD LAB POCT ORDERABLES - DEVICE Final Result Performing Organization Address [facility] Co de Phone Number [place] [address] [facility] [place] [address] * POCT glucose (05/02/2021 5:27 PM CDT) Glucose, POC 134 70 - 199 mg/dL [facility] Blood 05/02/2021 5:27 PM CDT 05/02/2021 5:27 PM CDT Laura Chung MD LAB POCT ORDERABLES - DEVICE Final Result Performing Organization Address [facility] Co de Phone Number [place] [address] [facility] [place] [address] * POCT glucose (05/02/2021 12:07 PM CDT) Glucose, POC 167 70 - 199 mg/dL [facility] Blood 05/02/2021 12:0 7 PM CDT 05/02/2021 12:07 PM CDT Laura Chung MD LAB POCT ORDERABLES - DEVICE Final Result Performing Organization Address [facility]/ZIP Co de Phone Number [place] [address] Luis[address] Jones Department [employer] [place] [address] * eGFR (05/02/2021 10:47 AM CDT) [facility] eGFR 112 mL/min/1.7 3 m2 [facility] Comment: Interpretive Data Reference Interval Normal ?>/= 90 mL/min/1.73m2 Mildly decreased* ? 60 - 89 mL/min/1.73m2 Mildly to moderately decreased ?45 - 59 mL/min/1.73m2 Moderately to severely decreased ??30 - 44 mL/min/1.73m2 Severely decreased ?15 - 29 mL/min/1.73m2 Kidney Failure ?< 15 ??mL/min/1.73m2 *Relative to young adult level Estimated glomerular filtration rate is determined by the CKD-EPI equation recommended by the National Kidney Foundation (KDIGO 2012 Clinical Practice Guideline for the Evaluation and Management of Chronic Kidney Disease. Kidney Intnl Suppl Jun 2012;3:1). The CKD-EPI equation should not be used for patients with unstable renal function and has not been validated in children and those over 70. Current interpretive data was last reviewed 2020 Blood 05/02/2021 10:4 7 AM CDT 05/02/2021 11:26 AM CDT us Javon Kauffman MD LAB BLOOD ORDERABLES F inal Result Performing Organization Address [facility]/ZIP Co de Phone Number HEIDI [address] Luis[address] Department [place] [address] * (ABNORMAL) Differential, auto (05/02/2021 10:47 AM CDT) Neutrophil abs 7.4(H) 1.7 - 6.5 K/cumm [facility] Imm gran abs 0.0 0.0 - 0.1 K/cumm [facility] Lymphocyte abs 1.0 0.8 - 3.3 K/cumm [facility] Monocyte abs 0.6 0.2 - 0.8 K/cumm [facility] Eosinophil abs 0.5 0.0 - 0.5 K/cumm [facility] Basophil abs 0.1 0.0 - 0.1 K/cumm [facility] Neutrophil pct 77.4 % [facility] Comment: Interpretive Data Percent cell count reference ranges are not reported, since discordance with absolute values may lead to misinterpretation of CBC data. Current Interpretive Data was last revised on 2017. Imm gran pct 0.4 % [facility] Comment: Interpretive Data Percent cell count reference ranges are not reported, since discordance with absolute values may lead to misinterpretation of CBC data. Current Interpretive Data was last revised on 2017. Lymphocyte pct 10.6 % [facility] Comment: Interpretive Data Percent cell count reference ranges are not reported, since discordance with absolute values may lead to misinterpretation of CBC data. Current Interpretive Data was last revised on 2017. Monocyte pct 5.9 % [facility] Comment: Interpretive Data Percent cell count reference ranges are not reported, since discordance with absolute values may lead to misinterpretation of CBC data. Current Interpretive Data was last revised on 2017. Eosinophil pct 5.2 % [facility] Comment: Interpretive Data Percent cell count reference ranges are not reported, since discordance with absolute values may lead to misinterpretation of CBC data. Current Interpretive Data was last revised on 2017. Basophil pct 0.5 % [facility] Comment: Interpretive Data Percent cell count reference ranges are not reported, since discordance with absolute values may lead to misinterpretation of CBC data. Current Interpretive Data was last revised on 2017. Blood 05/02/2021 10:4 7 AM CDT 05/02/2021 11:26 AM CDT Javon Kauffman MD LAB BLOOD ORDERABLES F inal Result Performing Organization Address [facility]/ZIP Co de Phone Number [place] [address] Luis[address] Department [place] [address] * (ABNORMAL) Basic metabolic panel (05/02/2021 10:47 AM CDT) Sodium 137 135 - 145 mmol/L [facility] Potassium, pl 4.6 3.3 - 4.9 mmol/L [facility] Comment:Hemolysis present. R esults may be affected. Chloride 100 97 - 110 mmol/L [facility] CO2 26 22 - 32 mmol/L [facility] Anion gap 11 2 - 15 mmol/L [facility] BUN 12 8 - 25 mg/dL [facility] Creatinine 0.56(L) 0.60 - 1.10 mg/dL [facility] Glucose 221(H) 70 - 199 mg/dL [facility] Comment: Interpretive Data Fasting glucose >/= 126 mg/dl is diagnostic for diabetes. ?? Fasting is defined as no caloric intake for at least 8 hours. Fasting glucose between 100 mg/dl to 125 mg/dl is diagnostic of prediabetes. In a patient with classic symptoms of hyperglycemia or hyperglycemic crisis, a random glucose >/= 200 mg/dl is diagnostic for diabetes. In the absence of unequivocal hyperglycemia, results should be confirmed by repeat testing. The classification and Diagnosis of Diabetes Diabetes Care 2017;40 (Suppl. 1):S11. Current interpretive data was last revised 2017. Calcium 8.6 8.5 - 10.3 mg/dL [facility] Blood 05/02/2021 10:4 7 AM CDT 05/02/2021 11:26 AM CDT Javon Kauffman MD LAB BLOOD ORDERABLES F inal Result Performing Organization Address [facility]/ZIP Co de Phone Number [place] [address] [address] Department [place] [address] * (ABNORMAL) CBC with auto differential (05/02/2021 10:47 AM CDT) WBC 9.5 3.8 - 9.9 K/cumm [facility] Hgb 10.8(L) 11.9 - 15.5 g/dL [facility] Hct 35.7 35.6 - 45.5 % [facility] Plt 212 150 - 400 K/cumm [facility] MPV 12.9(H) 9.1 - 12.3 fL [facility] RBC 3.88(L) 3.90 - 5.20 M/cumm [facility] MCV 92.0 81.3 - 96.4 fL [facility] MCH 27.8 27.1 - 33.3 pg [facility] MCHC 30.3(L) 32.3 - 35.7 g/dL [facility] RDW CV 16.0(H) 11.1 - 14.9 % [facility] RDW SD 53.8(H) 35.7 - 48.1 fL [facility] NRBC abs 0.00 0.00 - 0.01 K/cumm [facility] Blood 05/02/2021 10:4 7 AM CDT 05/02/2021 11:26 AM CDT Javon Kauffman MD LAB BLOOD ORDERABLES F inal Result Performing Organization Address [facility] Co de Phone Number [facility] [address] [address] [place], [place] [id number] * POCT glucose (05/02/2021 7:23 AM CDT) Glucose, POC 150 70 - 199 mg/dL [facility] Blood 05/02/2021 7:23 AM CDT 05/02/2021 7:23 AM CDT Laura Chung MD LAB POCT ORDERABLES - DEVICE Final Result Performing Organization Address [facility]/ZIP Co de Phone Number [facility] [address] [address] [facility] [place] [address] * POCT glucose (05/02/2021 2:15 AM CDT) Glucose, POC 130 70 - 199 mg/dL [facility] Blood 05/02/2021 2:15 AM CDT 05/02/2021 2:15 AM CDT us Laura Chung MD LAB POCT ORDERABLES - DEVICE Final Result Performing Organization Address [facility] Co de Phone Number [place] [address] [address] [facility] [place] [address] * (ABNORMAL) POCT glucose (05/01/2021 8:26 PM CDT) Glucose, POC 214(H) 70 - 199 mg/dL [facility] Blood 05/01/2021 8:26 PM CDT 05/01/2021 8:26 PM CDT us Laura Chung MD LAB POCT ORDERABLES - DEVICE Final Result Performing Organization Address [facility] Co de Phone Number [place] [address] [address] [facility] [place] [address] * POCT glucose (05/01/2021 5:27 PM CDT) Glucose, POC 171 70 - 199 mg/dL [facility] Blood 05/01/2021 5:27 PM CDT 05/01/2021 5:27 PM CDT us Laura Chung MD LAB POCT ORDERABLES - DEVICE Final Result Performing Organization Address [facility] Co de Phone Number [facility]I [address] [address] [facility] [place] [address] * POCT glucose (05/01/2021 11:55 AM CDT) Glucose, POC 157 70 - 199 mg/dL [facility] Blood 05/01/2021 11:5 5 AM CDT 05/01/2021 11:55 AM CDT us Laura Chung MD LAB POCT ORDERABLES - DEVICE Final Result Performing Organization Address City/[facility]/ZIP Co de Phone Number [place] [place] [address] [address] [facility] [place] [address] * POCT glucose (05/01/2021 7:56 AM CDT) Glucose, POC 129 70 - 199 mg/dL [facility] Blood 05/01/2021 7:56 AM CDT 05/01/2021 7:56 AM CDT Laura Chung MD LAB POCT ORDERABLES - DEVICE Final Result Performing Organization Address [facility] Co de Phone Number [place] [address] [address] [facility] [place] [address] * POCT glucose (05/01/2021 2:00 AM CDT) Glucose, POC 131 70 - 199 mg/dL [facility] Blood 05/01/2021 2:00 AM CDT 05/01/2021 2:00 AM CDT us Laura Chung MD LAB POCT ORDERABLES - DEVICE Final Result Performing Organization Address [facility] Co de Phone Number HE[facility]I TORI [address] [address] [facility] [place] [address] * (ABNORMAL) POCT glucose (04/30/2021 8:16 PM CDT) Glucose, POC 200(H) 70 - 199 mg/dL [facility] Blood 04/30/2021 8:16 PM CDT 04/30/2021 8:16 PM CDT us Laura Chung MD LAB POCT ORDERABLES - DEVICE Final Result Performing Organization Address [facility] Co de Phone Number [place] [address] [address] [facility] [place] [address] * POCT glucose (04/30/2021 6:04 PM CDT) Glucose, POC 167 70 - 199 mg/dL [facility] Blood 04/30/2021 6:04 PM CDT 04/30/2021 6:04 PM CDT Laura Chung MD LAB POCT ORDERABLES - DEVICE Final Result [facility] [address] [place] [address] * POCT glucose (04/30/2021 11:59 AM CDT) Glucose, POC 169 70 - 199 mg/dL [facility] Blood 04/30/2021 11:5 9 AM CDT 04/30/2021 11:59 AM CDT Laura Chung MD LAB POCT ORDERABLES - DEVICE Final Result Performing Organization Address [facility]/ZIP Co de Phone Number [facility] [address] [place] [address] * POCT glucose (04/30/2021 8:30 AM CDT) Glucose, POC 125 70 - 199 mg/dL [facility] Blood 04/30/2021 8:30 AM CDT 04/30/2021 8:30 AM CDT Laura Chung MD LAB POCT ORDERABLES - DEVICE Final Result Performing Organization Address [facility]/ZIP Co de Phone Number [facility] [address] [place] [address] * eGFR (04/30/2021 4:58 AM CDT) eGFR 117 mL/min/1.7 3 m2 [facility] Comment: Interpretive Data Reference Interval Normal ?>/= 90 mL/min/1.73m2 Mildly decreased* ? 60 - 89 mL/min/1.73m2 Mildly to moderately decreased ?45 - 59 mL/min/1.73m2 Moderately to severely decreased ??30 - 44 mL/min/1.73m2 Severely decreased ?15 - 29 mL/min/1.73m2 Kidney Failure ?< 15 ??mL/min/1.73m2 *Relative to young adult level Estimated glomerular filtration rate is determined by the CKD-EPI equation recommended by the National Kidney Foundation (KDIGO 2012 Clinical Practice Guideline for the Evaluation and Management of Chronic Kidney Disease. Kidney Intnl Suppl Jun 2012;3:1). The CKD-EPI equation should not be used for patients with unstable renal function and has not been validated in children and those over 70. Current interpretive data was last reviewed 2020 Blood 04/30/2021 4:58 AM CDT 04/30/2021 5:09 AM CDT us Javon Kauffman MD LAB BLOOD ORDERABLES F inal Result [facility] [address] [address] Department [place] [address] * (ABNORMAL) Basic metabolic panel (04/30/2021 4:58 AM CDT) Sodium 140 135 - 145 mmol/L [facility] Potassium, pl 3.6 3.3 - 4.9 mmol/L [facility] Chloride 99 97 - 110 mmol/L [facility] CO2 29 22 - 32 mmol/L [facility] Anion gap 12 2 - 15 mmol/L [facility] BUN 15 8 - 25 mg/dL [facility] Creatinine 0.49(L) 0.60 - 1.10 mg/dL [facility] Glucose 140 70 - 199 mg/dL [facility] Comment: Interpretive Data Fasting glucose >/= 126 mg/dl is diagnostic for diabetes. ?? Fasting is defined as no caloric intake for at least 8 hours. Fasting glucose between 100 mg/dl to 125 mg/dl is diagnostic of prediabetes. In a patient with classic symptoms of hyperglycemia or hyperglycemic crisis, a random glucose >/= 200 mg/dl is diagnostic for diabetes. In the absence of unequivocal hyperglycemia, results should be confirmed by repeat testing. The classification and Diagnosis of Diabetes Diabetes Care 2017;40 (Suppl. 1):S11. Current interpretive data was last revised 2017. Calcium 9.0 8.5 - 10.3 mg/dL [facility] Blood 04/30/2021 4:58 AM CDT 04/30/2021 5:09 AM CDT us Javon Kauffman MD LAB BLOOD ORDERABLES F inal Result [facility] [address] [address] Department [place] [address] * (ABNORMAL) D-dimer, quantitative (04/30/2021 4:58 AM CDT) D-Dimer 5,386(H) <=499 ng/mL FEU [facility] Comment: Interpretive data FDA approved the D-dimer, in conjunction with a low or moderate pretest probability score, to exclude venous thromboembolic events (VTE) (PE and DVT) in outpatients when the D-dimer result is < 500 ng/ml FEU. ?? Evidence supports using an age-adjusted D-dimer cut-off for outpatients older than 50 (age x 10) to improve specificity without sacrificing sensitivity. Example: age 68, VTE cut-off 680 ng/ml FEU. References; Schouten HT et al. Brit Med J. 2013;346:f2492. Loretta et al. Annals Int Med. 2015;163:701-11. Current interpretive data was last revised on 2019. Blood 04/30/2021 4:58 AM CDT 04/30/2021 5:09 AM CDT Javon Kauffman MD LAB BLOOD ORDERABLES F inal Result Performing Organization Address [facility]/ZIP Co de Phone Number [place] [address] [address] Department [place] [address] * (ABNORMAL) CRP (acute phase) (04/30/2021 4:58 AM CDT) CRP 40.6(H) <=10.0 mg/L [facility] Blood 04/30/2021 4:58 AM CDT 04/30/2021 5:09 AM CDT Javon Kauffman MD LAB BLOOD ORDERABLES F inal Result Performing Organization Address [facility] Co de Phone Number [place] [place] [address] [address] Department [place] [address] * (ABNORMAL) Differential, auto (04/30/2021 4:28 AM CDT) Neutrophil abs 10.2(H) 1.7 - 6.5 K/cumm [facility] Imm gran abs 0.1 0.0 - 0.1 K/cumm [facility] Lymphocyte abs 1.7 0.8 - 3.3 K/cumm [facility] Monocyte abs 0.9(H) 0.2 - 0.8 K/cumm [facility] Eosinophil abs 0.5 0.0 - 0.5 K/cumm [facility] Basophil abs 0.0 0.0 - 0.1 K/cumm [facility] Neutrophil pct 76.6 % [facility] Comment: Interpretive Data Percent cell count reference ranges are not reported, since discordance with absolute values may lead to misinterpretation of CBC data. Current Interpretive Data was last revised on 2017. Imm gran pct 0.6 % [facility] Comment: Interpretive Data Percent cell count reference ranges are not reported, since discordance with absolute values may lead to misinterpretation of CBC data. Current Interpretive Data was last revised on 2017. Lymphocyte pct 12.4 % [facility] Comment: Interpretive Data Percent cell count reference ranges are not reported, since discordance with absolute values may lead to misinterpretation of CBC data. Current Interpretive Data was last revised on 2017. Monocyte pct 6.8 % [facility] Comment: Interpretive Data Percent cell count reference ranges are not reported, since discordance with absolute values may lead to misinterpretation of CBC data. Current Interpretive Data was last revised on 2017. Eosinophil pct 3.4 % [facility] Comment: Interpretive Data Percent cell count reference ranges are not reported, since discordance with absolute values may lead to misinterpretation of CBC data. Current Interpretive Data was last revised on 2017. Basophil pct 0.2 % [facility] Comment: Interpretive Data Percent cell count reference ranges are not reported, since discordance with absolute values may lead to misinterpretation of CBC data. Current Interpretive Data was last revised on 2017. Blood 04/30/2021 4:28 AM CDT 04/30/2021 4:28 AM CDT Javon Kauffman MD LAB BLOOD ORDERABLES F inal Result [facility] [address] [address] Department [place] [address] * (ABNORMAL) CBC with auto differential (04/30/2021 4:28 AM CDT) WBC 13.4(H) 3.8 - 9.9 K/cumm [facility] Hgb 10.8(L) 11.9 - 15.5 g/dL [facility] Hct 35.1(L) 35.6 - 45.5 % [facility] Plt 258 150 - 400 K/cumm [facility] MPV 12.7(H) 9.1 - 12.3 fL [facility] RBC 3.77(L) 3.90 - 5.20 M/cumm [facility] MCV 93.1 81.3 - 96.4 fL [facility] MCH 28.6 27.1 - 33.3 pg [facility] MCHC 30.8(L) 32.3 - 35.7 g/dL [facility] RDW CV 15.4(H) 11.1 - 14.9 % [facility] RDW SD 52.4(H) 35.7 - 48.1 fL [facility] NRBC abs 0.00 0.00 - 0.01 K/cumm [facility] Blood 04/30/2021 4:28 AM CDT 04/30/2021 4:28 AM CDT Javon Kauffman MD LAB BLOOD ORDERABLES F inal Result Performing Organization Address [facility] Co de Phone Number [place] [address] [address] [facility] [address] [place], [place] [address] * (ABNORMAL) POCT glucose (04/29/2021 7:57 PM CDT) Glucose, POC 253(H) 70 - 199 mg/dL [facility] Blood 04/29/2021 7:57 PM CDT 04/29/2021 7:57 PM CDT Laura Chung MD LAB POCT ORDERABLES - DEVICE Final Result Performing Organization Address [facility] de Phone Number [place] [address] [address] [facility] [place] [address] * (ABNORMAL) POCT glucose (04/29/2021 5:48 PM CDT) Glucose, POC 272(H) 70 - 199 mg/dL [facility] Blood 04/29/2021 5:48 PM CDT 04/29/2021 5:48 PM CDT Laura Chung MD LAB POCT ORDERABLES - DEVICE Final Result Performing Organization Address [facility] de Phone Number [place] [place] [address] [address] [facility] [address] [place], [place] [id number] * (ABNORMAL) POCT glucose (04/29/2021 11:16 AM CDT) Glucose, POC 253(H) 70 - 199 mg/dL [facility] Blood 04/29/2021 11:1 6 AM CDT 04/29/2021 11:16 AM CDT us Laura Chung MD LAB POCT ORDERABLES - DEVICE Final Result Performing Organization Address [facility]/ZIP Co de Phone Number [place] [address] [address] [facility] [place] [address] * POCT glucose (04/29/2021 7:30 AM CDT) Glucose, POC 108 70 - 199 mg/dL [facility] Blood 04/29/2021 7:30 AM CDT 04/29/2021 7:30 AM CDT us Laura Chung MD LAB POCT ORDERABLES - DEVICE Final Result Performing Organization Address [facility] de Phone Number [place] [address] [address] Department [place] [address] * (ABNORMAL) Differential, auto (04/29/2021 3:50 AM CDT) Neutrophil abs 9.2(H) 1.7 - 6.5 K/cumm [facility] Imm gran abs 0.1 0.0 - 0.1 K/cumm [facility] Lymphocyte abs 1.6 0.8 - 3.3 K/cumm [facility] Monocyte abs 0.7 0.2 - 0.8 K/cumm [facility] Eosinophil abs 0.4 0.0 - 0.5 K/cumm [facility] Basophil abs 0.0 0.0 - 0.1 K/cumm [facility] Neutrophil pct 76.8 % [facility] Comment: Interpretive Data Percent cell count reference ranges are not reported, since discordance with absolute values may lead to misinterpretation of CBC data. Current Interpretive Data was last revised on 2017. Imm gran pct 0.6 % [facility] Comment: Interpretive Data Percent cell count reference ranges are not reported, since discordance with absolute values may lead to misinterpretation of CBC data. Current Interpretive Data was last revised on 2017. Lymphocyte pct 13.3 % [facility] Comment: Interpretive Data Percent cell count reference ranges are not reported, since discordance with absolute values may lead to misinterpretation of CBC data. Current Interpretive Data was last revised on 2017. Monocyte pct 6.1 % [facility] Comment: Interpretive Data Percent cell count reference ranges are not reported, since discordance with absolute values may lead to misinterpretation of CBC data. Current Interpretive Data was last revised on 2017. Eosinophil pct 2.9 % [facility] Comment: Interpretive Data Percent cell count reference ranges are not reported, since discordance with absolute values may lead to misinterpretation of CBC data. Current Interpretive Data was last revised on 2017. Basophil pct 0.3 % [facility] Comment: Interpretive Data Percent cell count reference ranges are not reported, since discordance with absolute values may lead to misinterpretation of CBC data. Current Interpretive Data was last revised on 2017. Blood 04/29/2021 3:50 AM CDT 04/29/2021 3:50 AM CDT us Javon Kauffman MD LAB BLOOD ORDERABLES F inal Result [facility] [address] [address] Department [place] [address] * (ABNORMAL) CBC with auto differential (04/29/2021 3:50 AM CDT) WBC 11.9(H) 3.8 - 9.9 K/cumm [facility] Hgb 11.0(L) 11.9 - 15.5 g/dL [facility] Hct 35.0(L) 35.6 - 45.5 % [facility] Plt 265 150 - 400 K/cumm [facility] MPV 12.7(H) 9.1 - 12.3 fL [facility] RBC 3.90 3.90 - 5.20 M/cumm [facility] MCV 89.7 81.3 - 96.4 fL [facility] MCH 28.2 27.1 - 33.3 pg [facility] MCHC 31.4(L) 32.3 - 35.7 g/dL [facility] RDW CV 15.5(H) 11.1 - 14.9 % [facility] RDW SD 50.3(H) 35.7 - 48.1 fL [facility] NRBC abs 0.00 0.00 - 0.01 K/cumm [facility] Blood 04/29/2021 3:50 AM CDT 04/29/2021 3:50 AM CDT us Javon Kauffman MD LAB BLOOD ORDERABLES F inal Result [facility] [address] [address] Department [place] [address] * eGFR (04/29/2021 3:49 AM CDT) eGFR 119 mL/min/1.7 3 m2 [facility] Comment: Interpretive Data Reference Interval Normal ?>/= 90 mL/min/1.73m2 Mildly decreased* ? 60 - 89 mL/min/1.73m2 Mildly to moderately decreased ?45 - 59 mL/min/1.73m2 Moderately to severely decreased ??30 - 44 mL/min/1.73m2 Severely decreased ?15 - 29 mL/min/1.73m2 Kidney Failure ?< 15 ??mL/min/1.73m2 *Relative to young adult level Estimated glomerular filtration rate is determined by the CKD-EPI equation recommended by the National Kidney Foundation (KDIGO 2012 Clinical Practice Guideline for the Evaluation and Management of Chronic Kidney Disease. Kidney Intnl Suppl Jun 2012;3:1). The CKD-EPI equation should not be used for patients with unstable renal function and has not been validated in children and those over 70. Current interpretive data was last reviewed 2020 Blood 04/29/2021 3:49 AM CDT 04/29/2021 3:49 AM CDT Javon Kauffman MD LAB BLOOD ORDERABLES F inal Result Performing Organization Address City/[facility]/ZIP Co de Phone Number [facility] [address] [address] Department [place] [address] * (ABNORMAL) Basic metabolic panel (04/29/2021 3:49 AM CDT) [facility] Sodium 139 135 - 145 mmol/L [facility] Potassium, pl 4.1 3.3 - 4.9 mmol/L [facility] Chloride 100 97 - 110 mmol/L [facility] CO2 28 22 - 32 mmol/L [facility] Anion gap 11 2 - 15 mmol/L [facility] BUN 17 8 - 25 mg/dL [facility] Creatinine 0.46(L) 0.60 - 1.10 mg/dL [facility] Glucose 117 70 - 199 mg/dL [facility] Comment: Interpretive Data Fasting glucose >/= 126 mg/dl is diagnostic for diabetes. ?? Fasting is defined as no caloric intake for at least 8 hours. Fasting glucose between 100 mg/dl to 125 mg/dl is diagnostic of prediabetes. In a patient with classic symptoms of hyperglycemia or hyperglycemic crisis, a random glucose >/= 200 mg/dl is diagnostic for diabetes. In the absence of unequivocal hyperglycemia, results should be confirmed by repeat testing. The classification and Diagnosis of Diabetes Diabetes Care 2017;40 (Suppl. 1):S11. Current interpretive data was last revised 2017. Calcium 8.8 8.5 - 10.3 mg/dL [facility] Blood 04/29/2021 3:49 AM CDT 04/29/2021 3:49 AM CDT Javon Kauffman MD LAB BLOOD ORDERABLES F inal Result Performing Organization Address [facility] Co de Phone Number [place] [place] [address] [address] Department [place] [address] * (ABNORMAL) POCT glucose (04/28/2021 8:36 PM CDT) Glucose, POC 213(H) 70 - 199 mg/dL [facility] Blood 04/28/2021 8:36 PM CDT 04/28/2021 8:36 PM CDT Laura Chung MD LAB POCT ORDERABLES - DEVICE Final Result Performing Organization Address City/[facility]/ZIP Co de Phone Number [place] [place] [address] [address] [facility] [place] [address] * (ABNORMAL) POCT glucose (04/28/2021 5:22 PM CDT) Glucose, POC 221(H) 70 - 199 mg/dL [facility] Blood 04/28/2021 5:22 PM CDT 04/28/2021 5:22 PM CDT Laura Chung MD LAB POCT ORDERABLES - DEVICE Final Result Performing Organization Address [facility] Co de Phone Number [place] [place] [address] [address] [facility] [place] [address] * (ABNORMAL) POCT glucose (04/28/2021 11:18 AM CDT) Glucose, POC 265(H) 70 - 199 mg/dL [facility] Blood 04/28/2021 11:1 8 AM CDT 04/28/2021 11:18 AM CDT Laura Chung MD LAB POCT ORDERABLES - DEVICE Final Result Performing Organization Address [facility] Co de Phone Number [place] [place] [address] [address] [facility] [place] [address] * POCT glucose (04/28/2021 8:06 AM CDT) Glucose, POC 116 70 - 199 mg/dL [facility] Blood 04/28/2021 8:06 AM CDT 04/28/2021 8:06 AM CDT Laura Chung MD LAB POCT ORDERABLES - DEVICE Final Result Performing Organization Address City/[facility]/ZIP Co de Phone Number [place] [address] [address] Department [employer] [place] [address] * eGFR (04/28/2021 5:00 AM CDT) [facility] eGFR 122 mL/min/1.7 3 m2 [facility] Comment: Interpretive Data Reference Interval Normal ?>/= 90 mL/min/1.73m2 Mildly decreased* ? 60 - 89 mL/min/1.73m2 Mildly to moderately decreased ?45 - 59 mL/min/1.73m2 Moderately to severely decreased ??30 - 44 mL/min/1.73m2 Severely decreased ?15 - 29 mL/min/1.73m2 Kidney Failure ?< 15 ??mL/min/1.73m2 *Relative to young adult level Estimated glomerular filtration rate is determined by the CKD-EPI equation recommended by the National Kidney Foundation (KDIGO 2012 Clinical Practice Guideline for the Evaluation and Management of Chronic Kidney Disease. Kidney Intnl Suppl Jun 2012;3:1). The CKD-EPI equation should not be used for patients with unstable renal function and has not been validated in children and those over 70. Current interpretive data was last reviewed 2020 Blood 04/28/2021 5:00 AM CDT 04/28/2021 5:03 AM CDT us Javon Kauffman MD LAB BLOOD ORDERABLES F inal Result Performing Organization Address City/[facility]/ZIP Co de Phone Number [place] [place] [address] [address] Department [employer] [place] [address] * (ABNORMAL) Differential, auto (04/28/2021 5:00 AM CDT) Neutrophil abs 10.0(H) 1.7 - 6.5 K/cumm [facility] Imm gran abs 0.1 0.0 - 0.1 K/cumm [facility] Lymphocyte abs 1.5 0.8 - 3.3 K/cumm [facility] Monocyte abs 0.8 0.2 - 0.8 K/cumm [facility] Eosinophil abs 0.3 0.0 - 0.5 K/cumm [facility] Basophil abs 0.0 0.0 - 0.1 K/cumm [facility] Neutrophil pct 78.8 % [facility] Comment: Interpretive Data Percent cell count reference ranges are not reported, since discordance with absolute values may lead to misinterpretation of CBC data. Current Interpretive Data was last revised on 2017. Imm gran pct 0.6 % [facility] Comment: Interpretive Data Percent cell count reference ranges are not reported, since discordance with absolute values may lead to misinterpretation of CBC data. Current Interpretive Data was last revised on 2017. Lymphocyte pct 12.0 % [facility] Comment: Interpretive Data Percent cell count reference ranges are not reported, since discordance with absolute values may lead to misinterpretation of CBC data. Current Interpretive Data was last revised on 2017. Monocyte pct 6.1 % [facility] Comment: Interpretive Data Percent cell count reference ranges are not reported, since discordance with absolute values may lead to misinterpretation of CBC data. Current Interpretive Data was last revised on 2017. Eosinophil pct 2.3 % [facility] Comment: Interpretive Data Percent cell count reference ranges are not reported, since discordance with absolute values may lead to misinterpretation of CBC data. Current Interpretive Data was last revised on 2017. Basophil pct 0.2 % [facility] Comment: Interpretive Data Percent cell count reference ranges are not reported, since discordance with absolute values may lead to misinterpretation of CBC data. Current Interpretive Data was last revised on 2017. Blood 04/28/2021 5:00 AM CDT 04/28/2021 5:03 AM CDT Javon Kauffman MD LAB BLOOD ORDERABLES F inal Result [facility] [place] [address] [address] Department [place] [address] * (ABNORMAL) Basic metabolic panel (04/28/2021 5:00 AM CDT) Sodium 139 135 - 145 mmol/L [facility] Potassium, pl 3.8 3.3 - 4.9 mmol/L [facility] Chloride 100 97 - 110 mmol/L [facility] CH CO2 29 22 - 32 mmol/L [facility] Anion gap 10 2 - 15 mmol/L [facility] CH BUN 13 8 - 25 mg/dL [facility] Creatinine 0.43(L) 0.60 - 1.10 mg/dL [facility] Glucose 121 70 - 199 mg/dL [facility] Comment: Interpretive Data Fasting glucose >/= 126 mg/dl is diagnostic for diabetes. ?? Fasting is defined as no caloric intake for at least 8 hours. Fasting glucose between 100 mg/dl to 125 mg/dl is diagnostic of prediabetes. In a patient with classic symptoms of hyperglycemia or hyperglycemic crisis, a random glucose >/= 200 mg/dl is diagnostic for diabetes. In the absence of unequivocal hyperglycemia, results should be confirmed by repeat testing. The classification and Diagnosis of Diabetes Diabetes Care 2017;40 (Suppl. 1):S11. Current interpretive data was last revised 2017. Calcium 8.7 8.5 - 10.3 mg/dL [facility] Blood 04/28/2021 5:00 AM CDT 04/28/2021 5:03 AM CDT Javon Kauffman MD LAB BLOOD ORDERABLES F inal Result Performing Organization Address City/[facility]/ZIP Co de Phone Number [place] [address] [address] Department [place] [address] * (ABNORMAL) CBC with auto differential (04/28/2021 5:00 AM CDT) WBC 12.7(H) 3.8 - 9.9 K/cumm [facility] Hgb 11.1(L) 11.9 - 15.5 g/dL [facility] Hct 36.2 35.6 - 45.5 % [facility] Plt 258 150 - 400 K/cumm [facility] MPV 12.2 9.1 - 12.3 fL [facility] RBC 3.95 3.90 - 5.20 M/cumm [facility] MCV 91.6 81.3 - 96.4 fL [facility] MCH 28.1 27.1 - 33.3 pg [facility] MCHC 30.7(L) 32.3 - 35.7 g/dL [facility] RDW CV 15.3(H) 11.1 - 14.9 % [facility] RDW SD 50.6(H) 35.7 - 48.1 fL [facility] CH NRBC abs 0.00 0.00 - 0.01 K/cumm [facility] Blood 04/28/2021 5:00 AM CDT 04/28/2021 5:03 AM CDT Javon Kauffman MD LAB BLOOD ORDERABLES F inal Result [place] [address] [address] [place] [address] * (ABNORMAL) POCT glucose (04/27/2021 8:28 PM CDT) Glucose, POC 296(H) 70 - 199 mg/dL [facility] Blood 04/27/2021 8:28 PM CDT 04/27/2021 8:28 PM CDT Laura Chung MD LAB POCT ORDERABLES - DEVICE Final Result [place] [address] [address] [employer] [place] [address] * (ABNORMAL) POCT glucose (04/27/2021 6:40 PM CDT) Glucose, POC 235(H) 70 - 199 mg/dL [facility] Blood 04/27/2021 6:40 PM CDT 04/27/2021 6:40 PM CDT Laura Chung MD LAB POCT ORDERABLES - DEVICE Final Result Performing Organization Address [facility] de Phone Number [facility] [address] [address] [facility] [employer] [place], [place] [id number] * (ABNORMAL) POCT glucose (04/27/2021 1:26 PM CDT) Glucose, POC 265(H) 70 - 199 mg/dL [facility] Blood 04/27/2021 1:26 PM CDT 04/27/2021 1:26 PM CDT Laura Chung MD LAB POCT ORDERABLES - DEVICE Final Result Performing Organization Address [facility] de Phone Number [facility] [address] [address] [place] [address] * POCT glucose (04/27/2021 8:26 AM CDT) Glucose, POC 129 70 - 199 mg/dL [facility] Blood 04/27/2021 8:26 AM CDT 04/27/2021 8:26 AM CDT Laura Chung MD LAB POCT ORDERABLES - DEVICE Final Result Performing Organization Address [facility] de Phone Number [facility] [address] [address] [facility] [place] [address] * eGFR (04/27/2021 4:00 AM CDT) eGFR 120 mL/min/1.7 3 m2 [facility] Comment: Interpretive Data Reference Interval Normal ?>/= 90 mL/min/1.73m2 Mildly decreased* ? 60 - 89 mL/min/1.73m2 Mildly to moderately decreased ?45 - 59 mL/min/1.73m2 Moderately to severely decreased ??30 - 44 mL/min/1.73m2 Severely decreased ?15 - 29 mL/min/1.73m2 Kidney Failure ?< 15 ??mL/min/1.73m2 *Relative to young adult level Estimated glomerular filtration rate is determined by the CKD-EPI equation recommended by the National Kidney Foundation (KDIGO 2012 Clinical Practice Guideline for the Evaluation and Management of Chronic Kidney Disease. Kidney Intnl Suppl Jun 2012;3:1). The CKD-EPI equation should not be used for patients with unstable renal function and has not been validated in children and those over 70. Current interpretive data was last reviewed 2020 Blood 04/27/2021 4:00 AM CDT 04/27/2021 4:13 AM CDT us Javon Kauffman MD LAB BLOOD ORDERABLES F inal Result [facility] [address] [address] Department [place] [address] * (ABNORMAL) Differential, auto (04/27/2021 4:00 AM CDT) Neutrophil abs 11.3(H) 1.7 - 6.5 K/cumm [facility] Imm gran abs 0.1 0.0 - 0.1 K/cumm [facility] Lymphocyte abs 1.4 0.8 - 3.3 K/cumm [facility] Monocyte abs 0.9(H) 0.2 - 0.8 K/cumm [facility] Eosinophil abs 0.2 0.0 - 0.5 K/cumm [facility] Basophil abs 0.0 0.0 - 0.1 K/cumm [facility] Neutrophil pct 81.0 % [facility] Comment: Interpretive Data Percent cell count reference ranges are not reported, since discordance with absolute values may lead to misinterpretation of CBC data. Current Interpretive Data was last revised on 2017. Imm gran pct 0.5 % [facility] Comment: Interpretive Data Percent cell count reference ranges are not reported, since discordance with absolute values may lead to misinterpretation of CBC data. Current Interpretive Data was last revised on 2017. Lymphocyte pct 10.3 % [facility] Comment: Interpretive Data Percent cell count reference ranges are not reported, since discordance with absolute values may lead to misinterpretation of CBC data. Current Interpretive Data was last revised on 2017. Monocyte pct 6.5 % [facility] Comment: Interpretive Data Percent cell count reference ranges are not reported, since discordance with absolute values may lead to misinterpretation of CBC data. Current Interpretive Data was last revised on 2017. Eosinophil pct 1.6 % [facility] Comment: Interpretive Data Percent cell count reference ranges are not reported, since discordance with absolute values may lead to misinterpretation of CBC data. Current Interpretive Data was last revised on 2017. Basophil pct 0.1 % [facility] Comment: Interpretive Data Percent cell count reference ranges are not reported, since discordance with absolute values may lead to misinterpretation of CBC data. Current Interpretive Data was last revised on 2017. Blood 04/27/2021 4:00 AM CDT 04/27/2021 4:13 AM CDT us Javon Kauffman MD LAB BLOOD ORDERABLES F inal Result [facility] [id number] [address] Department [place] [address] * (ABNORMAL) Basic metabolic panel (04/27/2021 4:00 AM CDT) Sodium 137 135 - 145 mmol/L [facility] Potassium, pl 4.2 3.3 - 4.9 mmol/L [facility] Chloride 99 97 - 110 mmol/L [facility] CO2 29 22 - 32 mmol/L [facility] Anion gap 9 2 - 15 mmol/L [facility] CH BUN 14 8 - 25 mg/dL [facility] Creatinine 0.45(L) 0.60 - 1.10 mg/dL [facility] Glucose 127 70 - 199 mg/dL [facility] Comment: Interpretive Data Fasting glucose >/= 126 mg/dl is diagnostic for diabetes. ?? Fasting is defined as no caloric intake for at least 8 hours. Fasting glucose between 100 mg/dl to 125 mg/dl is diagnostic of prediabetes. In a patient with classic symptoms of hyperglycemia or hyperglycemic crisis, a random glucose >/= 200 mg/dl is diagnostic for diabetes. In the absence of unequivocal hyperglycemia, results should be confirmed by repeat testing. The classification and Diagnosis of Diabetes Diabetes Care 2017;40 (Suppl. 1):S11. Current interpretive data was last revised 2017. Calcium 8.7 8.5 - 10.3 mg/dL [facility] Blood 04/27/2021 4:00 AM CDT 04/27/2021 4:13 AM CDT Javon Kauffman MD LAB BLOOD ORDERABLES F inal Result [facility] [address] Department of Laboratories [place] [id number] * (ABNORMAL) CBC with auto differential (04/27/2021 4:00 AM CDT) WBC 14.0(H) 3.8 - 9.9 K/cumm [facility] Hgb 10.8(L) 11.9 - 15.5 g/dL [facility] Hct 34.1(L) 35.6 - 45.5 % [facility] Plt 257 150 - 400 K/cumm [facility] MPV 12.5(H) 9.1 - 12.3 fL [facility] RBC 3.84(L) 3.90 - 5.20 M/cumm [facility] MCV 88.8 81.3 - 96.4 fL [facility] MCH 28.1 27.1 - 33.3 pg [facility] MCHC 31.7(L) 32.3 - 35.7 g/dL [facility] RDW CV 15.4(H) 11.1 - 14.9 % [facility] RDW SD 49.1(H) 35.7 - 48.1 fL [facility] NRBC abs 0.00 0.00 - 0.01 K/cumm [facility] Blood 04/27/2021 4:00 AM CDT 04/27/2021 4:13 AM CDT Javon Kauffman MD LAB BLOOD ORDERABLES F inal Result Performing Organization Address [facility] Co de Phone Number [place] [address] [address] Department [employer] [place], [place] [id number] * (ABNORMAL) POCT glucose (04/26/2021 8:08 PM CDT) Glucose, POC 251(H) 70 - 199 mg/dL [facility] Blood 04/26/2021 8:08 PM CDT 04/26/2021 8:08 PM CDT Laura Chung MD LAB POCT ORDERABLES - DEVICE Final Result Performing Organization Address [facility] de Phone Number [place] [address] [address] [facility] [place] [address] * (ABNORMAL) POCT glucose (04/26/2021 5:29 PM CDT) Glucose, POC 241(H) 70 - 199 mg/dL [facility] Blood 04/26/2021 5:29 PM CDT 04/26/2021 5:29 PM CDT Laura Chung MD LAB POCT ORDERABLES - DEVICE Final Result Performing Organization Address [facility] de Phone Number [place] [address] [address] [facility] [place] [address] * (ABNORMAL) POCT glucose (04/26/2021 11:57 AM CDT) Glucose, POC 281(H) 70 - 199 mg/dL [facility] Blood 04/26/2021 11:5 7 AM CDT 04/26/2021 11:57 AM CDT Laura Chung MD LAB POCT ORDERABLES - DEVICE Final Result [place] [address] [address] [facility] [place] [address] * POCT glucose (04/26/2021 8:58 AM CDT) Glucose, POC 126 70 - 199 mg/dL [facility] Blood 04/26/2021 8:58 AM CDT 04/26/2021 8:58 AM CDT Laura Chung MD LAB POCT ORDERABLES - DEVICE Final Result Performing Organization Address City/[facility] Co de Phone Number [place] [address] [address] Department [place] [address] * (ABNORMAL) Differential, auto (04/26/2021 5:29 AM CDT) Neutrophil abs 12.0(H) 1.7 - 6.5 K/cumm [facility] Imm gran abs 0.1 0.0 - 0.1 K/cumm [facility] Lymphocyte abs 1.2 0.8 - 3.3 K/cumm [facility] Monocyte abs 1.0(H) 0.2 - 0.8 K/cumm [facility] Eosinophil abs 0.3 0.0 - 0.5 K/cumm [facility] Basophil abs 0.0 0.0 - 0.1 K/cumm [facility] Neutrophil pct 82.6 % [facility] Comment: Interpretive Data Percent cell count reference ranges are not reported, since discordance with absolute values may lead to misinterpretation of CBC data. Current Interpretive Data was last revised on 2017. Imm gran pct 0.6 % [facility] Comment: Interpretive Data Percent cell count reference ranges are not reported, since discordance with absolute values may lead to misinterpretation of CBC data. Current Interpretive Data was last revised on 2017. Lymphocyte pct 8.2 % [facility] Comment: Interpretive Data Percent cell count reference ranges are not reported, since discordance with absolute values may lead to misinterpretation of CBC data. Current Interpretive Data was last revised on 2017. Monocyte pct 6.8 % [facility] Comment: Interpretive Data Percent cell count reference ranges are not reported, since discordance with absolute values may lead to misinterpretation of CBC data. Current Interpretive Data was last revised on 2017. Eosinophil pct 1.7 % [facility] Comment: Interpretive Data Percent cell count reference ranges are not reported, since discordance with absolute values may lead to misinterpretation of CBC data. Current Interpretive Data was last revised on 2017. Basophil pct 0.1 % [facility] Comment: Interpretive Data Percent cell count reference ranges are not reported, since discordance with absolute values may lead to misinterpretation of CBC data. Current Interpretive Data was last revised on 2017. Blood 04/26/2021 5:29 AM CDT 04/26/2021 5:29 AM CDT us Javon Kauffman MD LAB BLOOD ORDERABLES F inal Result [facility] [address] [address] Department [place] [address] * (ABNORMAL) CBC with auto differential (04/26/2021 5:29 AM CDT) WBC 14.5(H) 3.8 - 9.9 K/cumm [facility] Hgb 11.1(L) 11.9 - 15.5 g/dL [facility] Hct 35.2(L) 35.6 - 45.5 % [facility] Plt 265 150 - 400 K/cumm [facility] MPV 12.2 9.1 - 12.3 fL [facility] RBC 3.91 3.90 - 5.20 M/cumm [facility] MCV 90.0 81.3 - 96.4 fL [facility] MCH 28.4 27.1 - 33.3 pg [facility] MCHC 31.5(L) 32.3 - 35.7 g/dL [facility] RDW CV 15.1(H) 11.1 - 14.9 % [facility] RDW SD 49.3(H) 35.7 - 48.1 fL [facility] NRBC abs 0.00 0.00 - 0.01 K/cumm [facility] Blood 04/26/2021 5:29 AM CDT 04/26/2021 5:29 AM CDT us Javon Kauffman MD LAB BLOOD ORDERABLES F inal Result [facility] [id number] [address] Department of Laboratories [place] [id number] * eGFR (04/26/2021 5:28 AM CDT) eGFR 122 mL/min/1.7 3 m2 [facility] Comment: Interpretive Data Reference Interval Normal ?>/= 90 mL/min/1.73m2 Mildly decreased* ? 60 - 89 mL/min/1.73m2 Mildly to moderately decreased ?45 - 59 mL/min/1.73m2 Moderately to severely decreased ??30 - 44 mL/min/1.73m2 Severely decreased ?15 - 29 mL/min/1.73m2 Kidney Failure ?< 15 ??mL/min/1.73m2 *Relative to young adult level Estimated glomerular filtration rate is determined by the CKD-EPI equation recommended by the National Kidney Foundation (KDIGO 2012 Clinical Practice Guideline for the Evaluation and Management of Chronic Kidney Disease. Kidney Intnl Suppl Jun 2012;3:1). The CKD-EPI equation should not be used for patients with unstable renal function and has not been validated in children and those over 70. Current interpretive data was last reviewed 2020 Blood 04/26/2021 5:28 AM CDT 04/26/2021 5:28 AM CDT Javon Kauffman MD LAB BLOOD ORDERABLES F inal Result Performing Organization Address City/[facility] Co de Phone Number [place] [address] [address] Department [place] [address] * (ABNORMAL) Basic metabolic panel (04/26/2021 5:28 AM CDT) Sodium 137 135 - 145 mmol/L [facility] Potassium, pl 4.3 3.3 - 4.9 mmol/L [facility] Chloride 99 97 - 110 mmol/L [facility] CO2 26 22 - 32 mmol/L [facility] Anion gap 12 2 - 15 mmol/L [facility] CH BUN 14 8 - 25 mg/dL [facility] Creatinine 0.43(L) 0.60 - 1.10 mg/dL [facility] Glucose 115 70 - 199 mg/dL [facility] Comment: Interpretive Data Fasting glucose >/= 126 mg/dl is diagnostic for diabetes. ?? Fasting is defined as no caloric intake for at least 8 hours. Fasting glucose between 100 mg/dl to 125 mg/dl is diagnostic of prediabetes. In a patient with classic symptoms of hyperglycemia or hyperglycemic crisis, a random glucose >/= 200 mg/dl is diagnostic for diabetes. In the absence of unequivocal hyperglycemia, results should be confirmed by repeat testing. The classification and Diagnosis of Diabetes Diabetes Care 2017;40 (Suppl. 1):S11. Current interpretive data was last revised 2017. Calcium 8.8 8.5 - 10.3 mg/dL [facility] Blood 04/26/2021 5:28 AM CDT 04/26/2021 5:28 AM CDT Javon Kauffman MD LAB BLOOD ORDERABLES F inal Result Performing Organization Address [facility] Co de Phone Number [place] [address] [address] Department [place] [address] * (ABNORMAL) POCT glucose (04/25/2021 9:18 PM CDT) Glucose, POC 220(H) 70 - 199 mg/dL [facility] Blood 04/25/2021 9:18 PM CDT 04/25/2021 9:18 PM CDT Flavio Snyder MD LAB POCT ORDERABLES - DEVICE Fi nal Result Performing Organization Address [facility] Co de Phone Number [place] [address] [address] [facility] [place] [address] * (ABNORMAL) POCT glucose (04/25/2021 5:46 PM CDT) Glucose, POC 279(H) 70 - 199 mg/dL [facility] Blood 04/25/2021 5:46 PM CDT 04/25/2021 5:46 PM CDT Flavio Snyder MD LAB POCT ORDERABLES - DEVICE Fi nal Result Performing Organization Address [facility] de Phone Number [facility] [address] [address] [facility] [place] [address] * POCT glucose (04/25/2021 1:56 PM CDT) Glucose, POC 198 70 - 199 mg/dL [facility] Blood 04/25/2021 1:56 PM CDT 04/25/2021 1:56 PM CDT Flavio Snyder MD LAB POCT ORDERABLES - DEVICE Fi nal Result Performing Organization Address [facility] Co de Phone Number [facility] [address] [address] [facility] [place] [address] * POCT glucose (04/25/2021 8:03 AM CDT) Glucose, POC 107 70 - 199 mg/dL [facility] Blood 04/25/2021 8:03 AM CDT 04/25/2021 8:03 AM CDT Flavio Snyder MD LAB POCT ORDERABLES - DEVICE Fi nal Result Performing Organization Address [facility] Co de Phone Number [place] [address] [address] Department [employer] [place] [address] * eGFR (04/25/2021 3:44 AM CDT) eGFR 117 mL/min/1.7 3 m2 [facility] Comment: Interpretive Data Reference Interval Normal ?>/= 90 mL/min/1.73m2 Mildly decreased* ? 60 - 89 mL/min/1.73m2 Mildly to moderately decreased ?45 - 59 mL/min/1.73m2 Moderately to severely decreased ??30 - 44 mL/min/1.73m2 Severely decreased ?15 - 29 mL/min/1.73m2 Kidney Failure ?< 15 ??mL/min/1.73m2 *Relative to young adult level Estimated glomerular filtration rate is determined by the CKD-EPI equation recommended by the National Kidney Foundation (KDIGO 2012 Clinical Practice Guideline for the Evaluation and Management of Chronic Kidney Disease. Kidney Intnl Suppl Jun 2012;3:1). The CKD-EPI equation should not be used for patients with unstable renal function and has not been validated in children and those over 70. Current interpretive data was last reviewed 2020 Blood 04/25/2021 3:44 AM CDT 04/25/2021 4:46 AM CDT Flavio Snyder MD LAB BLOOD ORDERABLES Final Resu lt [place] [address] [address] Department [place] [address] * (ABNORMAL) Basic metabolic panel (04/25/2021 3:44 AM CDT) Sodium 140 135 - 145 mmol/L [facility] Potassium, pl 4.3 3.3 - 4.9 mmol/L [facility] Chloride 101 97 - 110 mmol/L [facility] 29 22 - 32 mmol/L [facility] Anion gap 10 2 - 15 mmol/L [facility] BUN 14 8 - 25 mg/dL [facility] Creatinine 0.49(L) 0.60 - 1.10 mg/dL [facility] Glucose 105 70 - 199 mg/dL [facility] Comment: Interpretive Data Fasting glucose >/= 126 mg/dl is diagnostic for diabetes. ?? Fasting is defined as no caloric intake for at least 8 hours. Fasting glucose between 100 mg/dl to 125 mg/dl is diagnostic of prediabetes. In a patient with classic symptoms of hyperglycemia or hyperglycemic crisis, a random glucose >/= 200 mg/dl is diagnostic for diabetes. In the absence of unequivocal hyperglycemia, results should be confirmed by repeat testing. The classification and Diagnosis of Diabetes Diabetes Care 2017;40 (Suppl. 1):S11. Current interpretive data was last revised 2017. Calcium 8.5 8.5 - 10.3 mg/dL [facility] Blood 04/25/2021 3:44 AM CDT 04/25/2021 4:45 AM CDT Narrative [facility] - 04/25/2021 5:13 AM CDT Redraw mint top us Flavio Snyder MD LAB BLOOD ORDERABLES Final Resu lt [facility] [address] [address] Department [place] [address] * (ABNORMAL) Differential, auto (04/25/2021 3:02 AM CDT) Neutrophil abs 10.6(H) 1.7 - 6.5 K/cumm [facility] Imm gran abs 0.1 0.0 - 0.1 K/cumm [facility] Lymphocyte abs 1.1 0.8 - 3.3 K/cumm [facility] Monocyte abs 0.8 0.2 - 0.8 K/cumm [facility] Eosinophil abs 0.2 0.0 - 0.5 K/cumm [facility] Basophil abs 0.0 0.0 - 0.1 K/cumm [facility] Neutrophil pct 83.2 % [facility] Comment: Interpretive Data Percent cell count reference ranges are not reported, since discordance with absolute values may lead to misinterpretation of CBC data. Current Interpretive Data was last revised on 2017. Imm gran pct 0.5 % [facility] Comment: Interpretive Data Percent cell count reference ranges are not reported, since discordance with absolute values may lead to misinterpretation of CBC data. Current Interpretive Data was last revised on 2017. Lymphocyte pct 8.8 % [facility] Comment: Interpretive Data Percent cell count reference ranges are not reported, since discordance with absolute values may lead to misinterpretation of CBC data. Current Interpretive Data was last revised on 2017. Monocyte pct 6.0 % [facility] Comment: Interpretive Data Percent cell count reference ranges are not reported, since discordance with absolute values may lead to misinterpretation of CBC data. Current Interpretive Data was last revised on 2017. Eosinophil pct 1.3 % [facility] Comment: Interpretive Data Percent cell count reference ranges are not reported, since discordance with absolute values may lead to misinterpretation of CBC data. Current Interpretive Data was last revised on 2017. Basophil pct 0.2 % [facility] Comment: Interpretive Data Percent cell count reference ranges are not reported, since discordance with absolute values may lead to misinterpretation of CBC data. Current Interpretive Data was last revised on 2017. Blood 04/25/2021 3:02 AM CDT 04/25/2021 3:13 AM CDT us Javon Kauffman MD LAB BLOOD ORDERABLES F inal Result [facility] [address] [address] Department [place] [address] * (ABNORMAL) CBC with auto differential (04/25/2021 3:02 AM CDT) WBC 12.8(H) 3.8 - 9.9 K/cumm [facility] Hgb 10.3(L) 11.9 - 15.5 g/dL [facility] Hct 33.2(L) 35.6 - 45.5 % [facility] Plt 251 150 - 400 K/cumm [facility] MPV 12.3 9.1 - 12.3 fL [facility] RBC 3.68(L) 3.90 - 5.20 M/cumm [facility] MCV 90.2 81.3 - 96.4 fL [facility] MCH 28.0 27.1 - 33.3 pg [facility] MCHC 31.0(L) 32.3 - 35.7 g/dL [facility] RDW CV 15.0(H) 11.1 - 14.9 % [facility] RDW SD 49.6(H) 35.7 - 48.1 fL [facility] NRBC abs 0.00 0.00 - 0.01 K/cumm [facility] Blood 04/25/2021 3:02 AM CDT 04/25/2021 3:13 AM CDT Javon Kauffman MD LAB BLOOD ORDERABLES F inal Result Performing Organization Address City/[facility]/ZIP Co de Phone Number [place] [address] [address] [place] [address] * (ABNORMAL) POCT glucose (04/24/2021 10:19 PM CDT) Glucose, POC 225(H) 70 - 199 mg/dL [facility] Blood 04/24/2021 10:1 9 PM CDT 04/24/2021 10:19 PM CDT Flavio Snyder MD LAB POCT ORDERABLES - DEVICE Fi nal Result Performing Organization Address City/[facility]/ZIP Co de Phone Number [place] [address] [address] Department [employer] [place] [address] * (ABNORMAL) POCT glucose (04/24/2021 5:56 PM CDT) Glucose, POC 236(H) 70 - 199 mg/dL [facility] Blood 04/24/2021 5:56 PM CDT 04/24/2021 5:56 PM CDT Flavio Snyder MD LAB POCT ORDERABLES - DEVICE Fi nal Result Performing Organization Address [facility] de Phone Number [facility] [address] [address] [facility] [place] [address] * (ABNORMAL) POCT glucose (04/24/2021 1:12 PM CDT) Glucose, POC 270(H) 70 - 199 mg/dL [facility] Blood 04/24/2021 1:12 PM CDT 04/24/2021 1:12 PM CDT Flavio Snyder MD LAB POCT ORDERABLES - DEVICE Fi nal Result Performing Organization Address [facility] de Phone Number [facility] [address] [address] [facility] [place] [address] * POCT glucose (04/24/2021 8:14 AM CDT) Glucose, POC 143 70 - 199 mg/dL [facility] Blood 04/24/2021 8:14 AM CDT 04/24/2021 8:14 AM CDT Flavio Snyder MD LAB POCT ORDERABLES - DEVICE Fi nal Result Performing Organization Address [facility] [facility] de Phone Number [facility] [address] [address] [facility] [place] [address] * eGFR (04/24/2021 7:39 AM CDT) eGFR 108 mL/min/1.7 3 m2 [facility] Comment: Interpretive Data Reference Interval Normal ?>/= 90 mL/min/1.73m2 Mildly decreased* ? 60 - 89 mL/min/1.73m2 Mildly to moderately decreased ?45 - 59 mL/min/1.73m2 Moderately to severely decreased ??30 - 44 mL/min/1.73m2 Severely decreased ?15 - 29 mL/min/1.73m2 Kidney Failure ?< 15 ??mL/min/1.73m2 *Relative to young adult level Estimated glomerular filtration rate is determined by the CKD-EPI equation recommended by the National Kidney Foundation (KDIGO 2012 Clinical Practice Guideline for the Evaluation and Management of Chronic Kidney Disease. Kidney Intnl Suppl Jun 2012;3:1). The CKD-EPI equation should not be used for patients with unstable renal function and has not been validated in children and those over 70. Current interpretive data was last reviewed 2020 Blood 04/24/2021 7:39 AM CDT 04/24/2021 7:44 AM CDT us Javon Kauffman MD LAB BLOOD ORDERABLES F inal Result [facility] [id number] [address] Department [place] [address] * (ABNORMAL) Differential, auto (04/24/2021 7:39 AM CDT) Neutrophil abs 12.4(H) 1.7 - 6.5 K/cumm [facility] Imm gran abs 0.1 0.0 - 0.1 K/cumm [facility] Lymphocyte abs 1.4 0.8 - 3.3 K/cumm [facility] Monocyte abs 0.9(H) 0.2 - 0.8 K/cumm [facility] Eosinophil abs 0.2 0.0 - 0.5 K/cumm [facility] Basophil abs 0.0 0.0 - 0.1 K/cumm [facility] Neutrophil pct 82.7 % [facility] Comment: Interpretive Data Percent cell count reference ranges are not reported, since discordance with absolute values may lead to misinterpretation of CBC data. Current Interpretive Data was last revised on 2017. Imm gran pct 0.6 % [facility] Comment: Interpretive Data Percent cell count reference ranges are not reported, since discordance with absolute values may lead to misinterpretation of CBC data. Current Interpretive Data was last revised on 2017. Lymphocyte pct 9.1 % [facility] Comment: Interpretive Data Percent cell count reference ranges are not reported, since discordance with absolute values may lead to misinterpretation of CBC data. Current Interpretive Data was last revised on 2017. Monocyte pct 6.0 % [facility] Comment: Interpretive Data Percent cell count reference ranges are not reported, since discordance with absolute values may lead to misinterpretation of CBC data. Current Interpretive Data was last revised on 2017. Eosinophil pct 1.5 % [facility] Comment: Interpretive Data Percent cell count reference ranges are not reported, since discordance with absolute values may lead to misinterpretation of CBC data. Current Interpretive Data was last revised on 2017. Basophil pct 0.1 % [facility] Comment: Interpretive Data Percent cell count reference ranges are not reported, since discordance with absolute values may lead to misinterpretation of CBC data. Current Interpretive Data was last revised on 2017. Blood 04/24/2021 7:39 AM CDT 04/24/2021 7:45 AM CDT Javon Kauffman MD LAB BLOOD ORDERABLES F inal Result [facility] [address] [address] Department [place] [address] * Basic metabolic panel (04/24/2021 7:39 AM CDT) Sodium 140 135 - 145 mmol/L [facility] Potassium, pl 4.3 3.3 - 4.9 mmol/L [facility] Chloride 100 97 - 110 mmol/L [facility] CO[facility] 29 22 - 32 mmol/L [facility] Anion gap 11 2 - 15 mmol/L [facility] BUN 16 8 - 25 mg/dL [facility] Creatinine 0.62 0.60 - 1.10 mg/dL [facility] Glucose 128 70 - 199 mg/dL [facility] Comment: Interpretive Data Fasting glucose >/= 126 mg/dl is diagnostic for diabetes. ?? Fasting is defined as no caloric intake for at least 8 hours. Fasting glucose between 100 mg/dl to 125 mg/dl is diagnostic of prediabetes. In a patient with classic symptoms of hyperglycemia or hyperglycemic crisis, a random glucose >/= 200 mg/dl is diagnostic for diabetes. In the absence of unequivocal hyperglycemia, results should be confirmed by repeat testing. The classification and Diagnosis of Diabetes Diabetes Care 2017;40 (Suppl. 1):S11. Current interpretive data was last revised 2017. Calcium 8.7 8.5 - 10.3 mg/dL [facility] Blood 04/24/2021 7:39 AM CDT 04/24/2021 7:44 AM CDT us Javon Kauffman MD LAB BLOOD ORDERABLES F inal Result [facility] [address] [address] Department [place] [address] * (ABNORMAL) CBC with auto differential (04/24/2021 7:39 AM CDT) WBC 15.0(H) 3.8 - 9.9 K/cumm [facility] Hgb 11.8(L) 11.9 - 15.5 g/dL [facility] Hct 38.6 35.6 - 45.5 % [facility] Plt 278 150 - 400 K/cumm [facility] MPV 12.1 9.1 - 12.3 fL [facility] RBC 4.20 3.90 - 5.20 M/cumm [facility] MCV 91.9 81.3 - 96.4 fL [facility] MCH 28.1 27.1 - 33.3 pg [facility] MCHC 30.6(L) 32.3 - 35.7 g/dL [facility] RDW CV 15.2(H) 11.1 - 14.9 % [facility] RDW SD 51.3(H) 35.7 - 48.1 fL [facility] NRBC abs 0.00 0.00 - 0.01 K/cumm [facility] Blood 04/24/2021 7:39 AM CDT 04/24/2021 7:45 AM CDT Javon Kauffman MD LAB BLOOD ORDERABLES F inal Result Performing Organization Address [facility] Co de Phone Number [facility] [phone] [address] [facility] [place] [address] * (ABNORMAL) CRP (acute phase) (04/24/2021 7:39 AM CDT) CRP 69.6(H) <=10.0 mg/L [facility] Blood 04/24/2021 7:39 AM CDT 04/24/2021 7:44 AM CDT Javon Kauffman MD LAB BLOOD ORDERABLES F inal Result Performing Organization Address [facility] de Phone Number [facility] [address] [address] [place] [address] * (ABNORMAL) D-dimer, quantitative (04/24/2021 7:39 AM CDT) D-Dimer 5,236(H) <=499 ng/mL FEU [facility] Comment: Interpretive data FDA approved the D-dimer, in conjunction with a low or moderate pretest probability score, to exclude venous thromboembolic events (VTE) (PE and DVT) in outpatients when the D-dimer result is < 500 ng/ml FEU. ?? Evidence supports using an age-adjusted D-dimer cut-off for outpatients older than 50 (age x 10) to improve specificity without sacrificing sensitivity. Example: age 68, VTE cut-off 680 ng/ml FEU. References; Schouten HT et al. Brit Med J. 2013;346:f2492. Loretta et al. Annals Int Med. 2015;163:701-11. Current interpretive data was last revised on 2019. Blood 04/24/2021 7:39 AM CDT 04/24/2021 7:44 AM CDT Javon Kauffman MD LAB BLOOD ORDERABLES F inal Result Performing Organization Address [facility] Co de Phone Number [facility] [place] [address] [address] [facility] [address] [place], [place] [id number] * (ABNORMAL) POCT glucose (04/23/2021 9:13 PM CDT) Glucose, POC 306(H) 70 - 199 mg/dL [facility] Blood 04/23/2021 9:13 PM CDT 04/23/2021 9:13 PM CDT Narayan Joy MD LAB POCT ORDERABLES - DEVICE Final Result Performing Organization Address [facility] Co de Phone Number [facility] [place] [address] [address] [facility] [place] [address] * (ABNORMAL) POCT glucose (04/23/2021 5:53 PM CDT) Glucose, POC 288(H) 70 - 199 mg/dL [facility] Blood 04/23/2021 5:53 PM CDT 04/23/2021 5:53 PM CDT Narayan Joy MD LAB POCT ORDERABLES - DEVICE Final Result Performing Organization Address [facility] Co de Phone Number [facility] [place] [address] [address] [place] [address] * (ABNORMAL) POCT glucose (04/23/2021 1:39 PM CDT) Glucose, POC 206(H) 70 - 199 mg/dL [facility] Blood 04/23/2021 1:39 PM CDT 04/23/2021 1:39 PM CDT Narayan Joy MD LAB POCT ORDERABLES - DEVICE Final Result Performing Organization Address [facility] Co de Phone Number [facility] [place] [address] [address] Department [employer] [place] [address] * POCT glucose (04/23/2021 9:22 AM CDT) Pathologist [facility] Glucose, POC 113 70 - 199 mg/dL [facility] Blood 04/23/2021 9:22 AM CDT 04/23/2021 9:22 AM CDT Narayan Joy MD LAB POCT ORDERABLES - DEVICE Final Result Performing Organization Address [facility] Co de Phone Number [facility] [address] [address] Department [employer] [place] [address] * eGFR (04/23/2021 6:48 AM CDT) [facility] eGFR 118 mL/min/1.7 3 m2 [facility] Comment: Interpretive Data Reference Interval Normal ?>/= 90 mL/min/1.73m2 Mildly decreased* ? 60 - 89 mL/min/1.73m2 Mildly to moderately decreased ?45 - 59 mL/min/1.73m2 Moderately to severely decreased ??30 - 44 mL/min/1.73m2 Severely decreased ?15 - 29 mL/min/1.73m2 Kidney Failure ?< 15 ??mL/min/1.73m2 *Relative to young adult level Estimated glomerular filtration rate is determined by the CKD-EPI equation recommended by the National Kidney Foundation (KDIGO 2012 Clinical Practice Guideline for the Evaluation and Management of Chronic Kidney Disease. Kidney Intnl Suppl Jun 2012;3:1). The CKD-EPI equation should not be used for patients with unstable renal function and has not been validated in children and those over 70. Current interpretive data was last reviewed 2020 Blood 04/23/2021 6:48 AM CDT 04/23/2021 7:13 AM CDT us Javon Kauffman MD LAB BLOOD ORDERABLES F inal Result [facility] [address] [address] Department [place] [address] * (ABNORMAL) Differential, auto (04/23/2021 6:48 AM CDT) Neutrophil abs 10.4(H) 1.7 - 6.5 K/cumm [facility] Imm gran abs 0.1 0.0 - 0.1 K/cumm [facility] Lymphocyte abs 1.0 0.8 - 3.3 K/cumm [facility] Monocyte abs 0.6 0.2 - 0.8 K/cumm [facility] Eosinophil abs 0.1 0.0 - 0.5 K/cumm [facility] Basophil abs 0.0 0.0 - 0.1 K/cumm [facility] Neutrophil pct 85.0 % [facility] Comment: Interpretive Data Percent cell count reference ranges are not reported, since discordance with absolute values may lead to misinterpretation of CBC data. Current Interpretive Data was last revised on 2017. Imm gran pct 0.5 % [facility] Comment: Interpretive Data Percent cell count reference ranges are not reported, since discordance with absolute values may lead to misinterpretation of CBC data. Current Interpretive Data was last revised on 2017. Lymphocyte pct 8.2 % [facility] Comment: Interpretive Data Percent cell count reference ranges are not reported, since discordance with absolute values may lead to misinterpretation of CBC data. Current Interpretive Data was last revised on 2017. Monocyte pct 5.1 % [facility] Comment: Interpretive Data Percent cell count reference ranges are not reported, since discordance with absolute values may lead to misinterpretation of CBC data. Current Interpretive Data was last revised on 2017. Eosinophil pct 1.1 % [facility] Comment: Interpretive Data Percent cell count reference ranges are not reported, since discordance with absolute values may lead to misinterpretation of CBC data. Current Interpretive Data was last revised on 2017. Basophil pct 0.1 % [facility] Comment: Interpretive Data Percent cell count reference ranges are not reported, since discordance with absolute values may lead to misinterpretation of CBC data. Current Interpretive Data was last revised on 2017. Blood 04/23/2021 6:48 AM CDT 04/23/2021 7:14 AM CDT Javon Kauffman MD LAB BLOOD ORDERABLES F inal Result [facility] [address] [address] Department [place] [address] * (ABNORMAL) Basic metabolic panel (04/23/2021 6:48 AM CDT) Sodium 138 135 - 145 mmol/L [facility] Potassium, pl 4.1 3.3 - 4.9 mmol/L [facility] Chloride 100 97 - 110 mmol/L [facility] CO2 29 22 - 32 mmol/L [facility] Anion gap 9 2 - 15 mmol/L [facility] BUN 15 8 - 25 mg/dL [facility] Creatinine 0.47(L) 0.60 - 1.10 mg/dL [facility] Glucose 138 70 - 199 mg/dL [facility] Comment: Interpretive Data Fasting glucose >/= 126 mg/dl is diagnostic for diabetes. ?? Fasting is defined as no caloric intake for at least 8 hours. Fasting glucose between 100 mg/dl to 125 mg/dl is diagnostic of prediabetes. In a patient with classic symptoms of hyperglycemia or hyperglycemic crisis, a random glucose >/= 200 mg/dl is diagnostic for diabetes. In the absence of unequivocal hyperglycemia, results should be confirmed by repeat testing. The classification and Diagnosis of Diabetes Diabetes Care 2017;40 (Suppl. 1):S11. Current interpretive data was last revised 2017. Calcium 8.5 8.5 - 10.3 mg/dL [facility] Blood 04/23/2021 6:48 AM CDT 04/23/2021 7:13 AM CDT Javon Kauffman MD LAB BLOOD ORDERABLES F inal Result Performing Organization Address [facility] de Phone Number [facility] [place] [address] [address] Department [place] [address] * (ABNORMAL) CBC with auto differential (04/23/2021 6:48 AM CDT) WBC 12.3(H) 3.8 - 9.9 K/cumm [facility] Hgb 10.6(L) 11.9 - 15.5 g/dL [facility] Hct 34.2(L) 35.6 - 45.5 % [facility] Plt 227 150 - 400 K/cumm [facility] MPV 12.6(H) 9.1 - 12.3 fL [facility] RBC 3.87(L) 3.90 - 5.20 M/cumm [facility] MCV 88.4 81.3 - 96.4 fL [facility] MCH 27.4 27.1 - 33.3 pg [facility] MCHC 31.0(L) 32.3 - 35.7 g/dL [facility] RDW CV 14.9 11.1 - 14.9 % [facility] RDW SD 48.2(H) 35.7 - 48.1 fL [facility] NRBC abs 0.00 0.00 - 0.01 K/cumm [facility] Blood 04/23/2021 6:48 AM CDT 04/23/2021 7:14 AM CDT Javon Kauffman MD LAB BLOOD ORDERABLES F inal Result Performing Organization Address [facility] Co de Phone Number [facility] [place] [address] Department [place] [address] * (ABNORMAL) POCT glucose (04/22/2021 9:14 PM CDT) Glucose, POC 253(H) 70 - 199 mg/dL [facility] Blood 04/22/2021 9:14 PM CDT 04/22/2021 9:14 PM CDT Narayan Joy MD LAB POCT ORDERABLES - DEVICE Final Result [facility] [address] [address] [facility] [place] [address] * (ABNORMAL) POCT glucose (04/22/2021 6:57 PM CDT) Glucose, POC 260(H) 70 - 199 mg/dL [facility] Blood 04/22/2021 6:57 PM CDT 04/22/2021 6:57 PM CDT Narayan Joy MD LAB POCT ORDERABLES - DEVICE Final Result Performing Organization Address [facility] Co de Phone Number [facility] [place] [address] [address] [facility] [place] [address] * (ABNORMAL) POCT glucose (04/22/2021 1:47 PM CDT) Glucose, POC 242(H) 70 - 199 mg/dL [facility] Blood 04/22/2021 1:47 PM CDT 04/22/2021 1:47 PM CDT Narayan Joy MD LAB POCT ORDERABLES - DEVICE Final Result Performing Organization Address [facility]/ZIP Co de Phone Number [facility] [place] [address] [address] [place] [address] * POCT glucose (04/22/2021 9:49 AM CDT) Glucose, POC 130 70 - 199 mg/dL [facility] Blood 04/22/2021 9:49 AM CDT 04/22/2021 9:49 AM CDT us Narayan Joy MD LAB POCT ORDERABLES - DEVICE Final Result Performing Organization Address [facility]/ZIP Co de Phone Number [facility] [place] [address] [address] Department [place] [address] * eGFR (04/22/2021 6:31 AM CDT) eGFR 122 mL/min/1.7 3 m2 [facility] Comment: Interpretive Data Reference Interval Normal ?>/= 90 mL/min/1.73m2 Mildly decreased* ? 60 - 89 mL/min/1.73m2 Mildly to moderately decreased ?45 - 59 mL/min/1.73m2 Moderately to severely decreased ??30 - 44 mL/min/1.73m2 Severely decreased ?15 - 29 mL/min/1.73m2 Kidney Failure ?< 15 ??mL/min/1.73m2 *Relative to young adult level Estimated glomerular filtration rate is determined by the CKD-EPI equation recommended by the National Kidney Foundation (KDIGO 2012 Clinical Practice Guideline for the Evaluation and Management of Chronic Kidney Disease. Kidney Intnl Suppl Jun 2012;3:1). The CKD-EPI equation should not be used for patients with unstable renal function and has not been validated in children and those over 70. Current interpretive data was last reviewed 2020 Blood 04/22/2021 6:31 AM CDT 04/22/2021 6:36 AM CDT us Jaovn Kauffman MD LAB BLOOD ORDERABLES F inal Result [facility] [address] [address] Department [place] [address] * (ABNORMAL) Differential, auto (04/22/2021 6:31 AM CDT) Neutrophil abs 10.3(H) 1.7 - 6.5 K/cumm [facility] Imm gran abs 0.1 0.0 - 0.1 K/cumm [facility] Lymphocyte abs 0.6(L) 0.8 - 3.3 K/cumm [facility] Monocyte abs 0.6 0.2 - 0.8 K/cumm [facility] Eosinophil abs 0.0 0.0 - 0.5 K/cumm [facility] Basophil abs 0.0 0.0 - 0.1 K/cumm [facility] Neutrophil pct 88.1 % [facility] Comment: Interpretive Data Percent cell count reference ranges are not reported, since discordance with absolute values may lead to misinterpretation of CBC data. Current Interpretive Data was last revised on 2017. Imm gran pct 0.8 % [facility] Comment: Interpretive Data Percent cell count reference ranges are not reported, since discordance with absolute values may lead to misinterpretation of CBC data. Current Interpretive Data was last revised on 2017. Lymphocyte pct 5.3 % [facility] Comment: Interpretive Data Percent cell count reference ranges are not reported, since discordance with absolute values may lead to misinterpretation of CBC data. Current Interpretive Data was last revised on 2017. Monocyte pct 5.3 % [facility] Comment: Interpretive Data Percent cell count reference ranges are not reported, since discordance with absolute values may lead to misinterpretation of CBC data. Current Interpretive Data was last revised on 2017. Eosinophil pct 0.3 % [facility] Comment: Interpretive Data Percent cell count reference ranges are not reported, since discordance with absolute values may lead to misinterpretation of CBC data. Current Interpretive Data was last revised on 2017. Basophil pct 0.2 % [facility] Comment: Interpretive Data Percent cell count reference ranges are not reported, since discordance with absolute values may lead to misinterpretation of CBC data. Current Interpretive Data was last revised on 2017. Blood 04/22/2021 6:31 AM CDT 04/22/2021 6:36 AM CDT us Javon Kauffman MD LAB BLOOD ORDERABLES F inal Result [facility] [address] [address] Department [place] [address] * (ABNORMAL) Basic metabolic panel (04/22/2021 6:31 AM CDT) Sodium 140 135 - 145 mmol/L [facility] Potassium, pl 4.4 3.3 - 4.9 mmol/L [facility] Chloride 103 97 - 110 mmol/L [facility] CO2 27 22 - 32 mmol/L [facility] Anion gap 10 2 - 15 mmol/L [facility] BUN 14 8 - 25 mg/dL [facility] Creatinine 0.43(L) 0.60 - 1.10 mg/dL [facility] Glucose 150 70 - 199 mg/dL [facility] Comment: Interpretive Data Fasting glucose >/= 126 mg/dl is diagnostic for diabetes. ?? Fasting is defined as no caloric intake for at least 8 hours. Fasting glucose between 100 mg/dl to 125 mg/dl is diagnostic of prediabetes. In a patient with classic symptoms of hyperglycemia or hyperglycemic crisis, a random glucose >/= 200 mg/dl is diagnostic for diabetes. In the absence of unequivocal hyperglycemia, results should be confirmed by repeat testing. The classification and Diagnosis of Diabetes Diabetes Care 2017;40 (Suppl. 1):S11. Current interpretive data was last revised 2017. Calcium 8.7 8.5 - 10.3 mg/dL [facility] Blood 04/22/2021 6:31 AM CDT 04/22/2021 6:36 AM CDT us Javon Kauffman MD LAB BLOOD ORDERABLES F inal Result [facility] [address] [address] Department [place] [address] * (ABNORMAL) CBC with auto differential (04/22/2021 6:31 AM CDT) WBC 11.7(H) 3.8 - 9.9 K/cumm [facility] Hgb 10.6(L) 11.9 - 15.5 g/dL [facility] Hct 33.7(L) 35.6 - 45.5 % [facility] Plt 229 150 - 400 K/cumm [facility] MPV 12.4(H) 9.1 - 12.3 fL [facility] RBC 3.76(L) 3.90 - 5.20 M/cumm [facility] MCV 89.6 81.3 - 96.4 fL [facility] MCH 28.2 27.1 - 33.3 pg [facility] MCHC 31.5(L) 32.3 - 35.7 g/dL [facility] RDW CV 15.1(H) 11.1 - 14.9 % [facility] RDW SD 49.4(H) 35.7 - 48.1 fL [facility] NRBC abs 0.00 0.00 - 0.01 K/cumm [facility] Blood 04/22/2021 6:31 AM CDT 04/22/2021 6:36 AM CDT Javon Kauffman MD LAB BLOOD ORDERABLES F inal Result Performing Organization Address [facility] Co de Phone Number [facility] [address] [address] Department [place] [address] * POCT glucose (04/21/2021 8:43 PM CDT) Glucose, POC 148 70 - 199 mg/dL [facility] Blood 04/21/2021 8:43 PM CDT 04/21/2021 8:43 PM CDT Flavio Snyder MD LAB POCT ORDERABLES - DEVICE Fi nal Result Performing Organization Address [facility] Co de Phone Number [facility] [address] [address] Department [place] [address] * POCT glucose (04/21/2021 4:53 PM CDT) Glucose, POC 161 70 - 199 mg/dL [facility] Blood 04/21/2021 4:53 PM CDT 04/21/2021 4:53 PM CDT Narayan Joy MD LAB POCT ORDERABLES - DEVICE Final Result Performing Organization Address [facility]/ZIP Co de Phone Number [facility] [place] [address] [address] [facility] [place] [address] * POCT glucose (04/21/2021 2:23 PM CDT) Glucose, POC 160 70 - 199 mg/dL [facility] Blood 04/21/2021 2:23 PM CDT 04/21/2021 2:23 PM CDT Narayan Joy MD LAB POCT ORDERABLES - DEVICE Final Result Performing Organization Address [facility] Co de Phone Number [facility] [place] [address] [address] [facility] [place] [address] * POCT glucose (04/21/2021 8:50 AM CDT) Glucose, POC 115 70 - 199 mg/dL [facility] Blood 04/21/2021 8:50 AM CDT 04/21/2021 8:50 AM CDT Narayan Joy MD LAB POCT ORDERABLES - DEVICE Final Result Performing Organization Address [facility] Co de Phone Number [facility] [place] [address] [address] [place] [address] * (ABNORMAL) POCT glucose (04/20/2021 9:00 PM CDT) Glucose, POC 239(H) 70 - 199 mg/dL [facility] Blood 04/20/2021 9:00 PM CDT 04/20/2021 9:00 PM CDT us Narayan Joy MD LAB POCT ORDERABLES - DEVICE Final Result Performing Organization Address [facility]/ZIP Co de Phone Number [facility] [place] [address] [address] [place] [address] * (ABNORMAL) POCT glucose (04/20/2021 5:27 PM CDT) Glucose, POC 260(H) 70 - 199 mg/dL [facility] Blood 04/20/2021 5:27 PM CDT 04/20/2021 5:27 PM CDT Narayan Joy MD LAB POCT ORDERABLES - DEVICE Final Result Performing Organization Address [facility] Co de Phone Number [facility] [address] [address] [facility] [place] [address] * (ABNORMAL) POCT glucose (04/20/2021 12:57 PM CDT) [facility] Glucose, POC 235(H) 70 - 199 mg/dL [facility] Blood 04/20/2021 12:5 7 PM CDT 04/20/2021 12:57 PM CDT Narayan Joy MD LAB POCT ORDERABLES - DEVICE Final Result Performing Organization Address [facility] de Phone Number [facility] [address] [address] [facility] [place] [address] * POCT glucose (04/20/2021 9:34 AM CDT) Pathologist [facility] Glucose, POC 110 70 - 199 mg/dL [facility] Blood 04/20/2021 9:34 AM CDT 04/20/2021 9:34 AM CDT Narayan Joy MD LAB POCT ORDERABLES - DEVICE Final Result Performing Organization Address [facility] Co de Phone Number [facility] [address] [address] [facility] [place] [address] * eGFR (04/20/2021 5:34 AM CDT) [facility] eGFR 119 mL/min/1.7 3 m2 [facility] Comment: Interpretive Data Reference Interval Normal ?>/= 90 mL/min/1.73m2 Mildly decreased* ? 60 - 89 mL/min/1.73m2 Mildly to moderately decreased ?45 - 59 mL/min/1.73m2 Moderately to severely decreased ??30 - 44 mL/min/1.73m2 Severely decreased ?15 - 29 mL/min/1.73m2 Kidney Failure ?< 15 ??mL/min/1.73m2 *Relative to young adult level Estimated glomerular filtration rate is determined by the CKD-EPI equation recommended by the National Kidney Foundation (KDIGO 2012 Clinical Practice Guideline for the Evaluation and Management of Chronic Kidney Disease. Kidney Intnl Suppl Jun 2012;3:1). The CKD-EPI equation should not be used for patients with unstable renal function and has not been validated in children and those over 70. Current interpretive data was last reviewed 2020 Blood 04/20/2021 5:34 AM CDT 04/20/2021 5:38 AM CDT us Johnny Salgado MD LAB BLOOD ORDERABLES Fi nal Result [facility] [address] [address] Department [place] [address] * (ABNORMAL) Differential, auto (04/20/2021 5:34 AM CDT) Neutrophil abs 8.3(H) 1.7 - 6.5 K/cumm [facility] Imm gran abs 0.1 0.0 - 0.1 K/cumm [facility] Lymphocyte abs 0.8 0.8 - 3.3 K/cumm [facility] Monocyte abs 0.5 0.2 - 0.8 K/cumm [facility] Eosinophil abs 0.1 0.0 - 0.5 K/cumm [facility] Basophil abs 0.0 0.0 - 0.1 K/cumm [facility] Neutrophil pct 84.9 % [facility] Comment: Interpretive Data Percent cell count reference ranges are not reported, since discordance with absolute values may lead to misinterpretation of CBC data. Current Interpretive Data was last revised on 2017. Imm gran pct 0.5 % [facility] Comment: Interpretive Data Percent cell count reference ranges are not reported, since discordance with absolute values may lead to misinterpretation of CBC data. Current Interpretive Data was last revised on 2017. Lymphocyte pct 8.2 % [facility] Comment: Interpretive Data Percent cell count reference ranges are not reported, since discordance with absolute values may lead to misinterpretation of CBC data. Current Interpretive Data was last revised on 2017. Monocyte pct 4.9 % [facility] Comment: Interpretive Data Percent cell count reference ranges are not reported, since discordance with absolute values may lead to misinterpretation of CBC data. Current Interpretive Data was last revised on 2017. Eosinophil pct 1.4 % [facility] Comment: Interpretive Data Percent cell count reference ranges are not reported, since discordance with absolute values may lead to misinterpretation of CBC data. Current Interpretive Data was last revised on 2017. Basophil pct 0.1 % [facility] Comment: Interpretive Data Percent cell count reference ranges are not reported, since discordance with absolute values may lead to misinterpretation of CBC data. Current Interpretive Data was last revised on 2017. Blood 04/20/2021 5:34 AM CDT 04/20/2021 5:38 AM CDT Javon Kauffman MD LAB BLOOD ORDERABLES F inal Result [facility] [address] [address] Department [place] [address] * (ABNORMAL) CBC with auto differential (04/20/2021 5:34 AM CDT) WBC 9.7 3.8 - 9.9 K/cumm [facility] Hgb 10.2(L) 11.9 - 15.5 g/dL [facility] Hct 32.7(L) 35.6 - 45.5 % [facility] Plt 217 150 - 400 K/cumm [facility] MPV 12.4(H) 9.1 - 12.3 fL [facility] RBC 3.64(L) 3.90 - 5.20 M/cumm [facility] MCV 89.8 81.3 - 96.4 fL [facility] MCH 28.0 27.1 - 33.3 pg [facility] MCHC 31.2(L) 32.3 - 35.7 g/dL [facility] RDW CV 14.9 11.1 - 14.9 % [facility] RDW SD 48.7(H) 35.7 - 48.1 fL [facility] NRBC abs 0.00 0.00 - 0.01 K/cumm [facility] Blood 04/20/2021 5:34 AM CDT 04/20/2021 5:38 AM CDT us Javon Kauffman MD LAB BLOOD ORDERABLES F inal Result [facility] [address] [address] Department [place] [address] * (ABNORMAL) Comprehensive metabolic panel (04/20/2021 5:34 AM CDT) Sodium 142 135 - 145 mmol/L [facility] Potassium, pl 3.6 3.3 - 4.9 mmol/L [facility] Chloride 106 97 - 110 mmol/L [facility] CO2 29 22 - 32 mmol/L [facility] Anion gap 7 2 - 15 mmol/L [facility] BUN 16 8 - 25 mg/dL [facility] Creatinine 0.46(L) 0.60 - 1.10 mg/dL [facility] Glucose 128 70 - 199 mg/dL [facility] Comment: Interpretive Data Fasting glucose >/= 126 mg/dl is diagnostic for diabetes. ?? Fasting is defined as no caloric intake for at least 8 hours. Fasting glucose between 100 mg/dl to 125 mg/dl is diagnostic of prediabetes. In a patient with classic symptoms of hyperglycemia or hyperglycemic crisis, a random glucose >/= 200 mg/dl is diagnostic for diabetes. In the absence of unequivocal hyperglycemia, results should be confirmed by repeat testing. The classification and Diagnosis of Diabetes Diabetes Care 2017;40 (Suppl. 1):S11. Current interpretive data was last revised 2017. Calcium 7.9(L) 8.5 - 10.3 mg/dL [facility] Bilirubin, total 0.4 0.1 - 1.2 mg/dL [facility] Protein, pl 5.8(L) 6.5 - 8.5 g/dL [facility] Albumin 2.7(L) 3.5 - 5.0 g/dL [facility] Alk phos 61 40 - 130 Units/L [facility] ALT 28 7 - 45 Units/L [facility] AST 28 10 - 45 Units/L [facility] Blood 04/20/2021 5:34 AM CDT 04/20/2021 5:38 AM CDT us Johnny Salgado MD LAB BLOOD ORDERABLES Fi nal Result Performing Organization Address City/[facility]/ZIP Co de Phone Number [facility] [address] [address] [employer] [place] [address] * (ABNORMAL) POCT glucose (04/19/2021 8:55 PM CDT) Glucose, POC 232(H) 70 - 199 mg/dL [facility] Blood 04/19/2021 8:55 PM CDT 04/19/2021 8:55 PM CDT us Narayan Joy MD LAB POCT ORDERABLES - DEVICE Final Result [facility] [address] [address] Department of [employer] [place], [place] [id number] * (ABNORMAL) POCT glucose (04/19/2021 5:49 PM CDT) Glucose, POC 225(H) 70 - 199 mg/dL [facility] Blood 04/19/2021 5:49 PM CDT 04/19/2021 5:49 PM CDT Narayan Joy MD LAB POCT ORDERABLES - DEVICE Final Result Performing Organization Address [facility] de Phone Number [facility] [address] [address] [facility] [place] [address] * POCT glucose (04/19/2021 12:42 PM CDT) Glucose, POC 189 70 - 199 mg/dL [facility] Blood 04/19/2021 12:4 2 PM CDT 04/19/2021 12:42 PM CDT Narayan Joy MD LAB POCT ORDERABLES - DEVICE Final Result Performing Organization Address [facility] de Phone Number [facility] [address] [address] [facility] [place] [address] * POCT glucose (04/19/2021 8:29 AM CDT) Glucose, POC 144 70 - 199 mg/dL [facility] Blood 04/19/2021 8:29 AM CDT 04/19/2021 8:29 AM CDT Narayan Joy MD LAB POCT ORDERABLES - DEVICE Final Result Performing Organization Address [facility] de Phone Number [facility] [address] [address] [facility] [place] [address] * eGFR (04/19/2021 6:57 AM CDT) eGFR 110 mL/min/1.7 3 m2 [facility] Comment: Interpretive Data Reference Interval Normal ?>/= 90 mL/min/1.73m2 Mildly decreased* ? 60 - 89 mL/min/1.73m2 Mildly to moderately decreased ?45 - 59 mL/min/1.73m2 Moderately to severely decreased ??30 - 44 mL/min/1.73m2 Severely decreased ?15 - 29 mL/min/1.73m2 Kidney Failure ?< 15 ??mL/min/1.73m2 *Relative to young adult level Estimated glomerular filtration rate is determined by the CKD-EPI equation recommended by the National Kidney Foundation (KDIGO 2012 Clinical Practice Guideline for the Evaluation and Management of Chronic Kidney Disease. Kidney Intnl Suppl Jun 2012;3:1). The CKD-EPI equation should not be used for patients with unstable renal function and has not been validated in children and those over 70. Current interpretive data was last reviewed 2020 Blood 04/19/2021 6:57 AM CDT 04/19/2021 6:57 AM CDT Johnny Salgado MD LAB BLOOD ORDERABLES nal Result [facility] [address] [address] Department [place] [address] * (ABNORMAL) Differential, auto (04/19/2021 6:57 AM CDT) Neutrophil abs 9.0(H) 1.7 - 6.5 K/cumm [facility] Imm gran abs 0.1 0.0 - 0.1 K/cumm [facility] Lymphocyte abs 0.9 0.8 - 3.3 K/cumm [facility] Monocyte abs 0.6 0.2 - 0.8 K/cumm [facility] Eosinophil abs 0.2 0.0 - 0.5 K/cumm [facility] Basophil abs 0.0 0.0 - 0.1 K/cumm [facility] Neutrophil pct 84.2 % [facility] Comment: Interpretive Data Percent cell count reference ranges are not reported, since discordance with absolute values may lead to misinterpretation of CBC data. Current Interpretive Data was last revised on 2017. Imm gran pct 0.7 % [facility] Comment: Interpretive Data Percent cell count reference ranges are not reported, since discordance with absolute values may lead to misinterpretation of CBC data. Current Interpretive Data was last revised on 2017. Lymphocyte pct 7.9 % [facility] Comment: Interpretive Data Percent cell count reference ranges are not reported, since discordance with absolute values may lead to misinterpretation of CBC data. Current Interpretive Data was last revised on 2017. Monocyte pct 5.6 % [facility] Comment: Interpretive Data Percent cell count reference ranges are not reported, since discordance with absolute values may lead to misinterpretation of CBC data. Current Interpretive Data was last revised on 2017. Eosinophil pct 1.5 % [facility] Comment: Interpretive Data Percent cell count reference ranges are not reported, since discordance with absolute values may lead to misinterpretation of CBC data. Current Interpretive Data was last revised on 2017. Basophil pct 0.1 % [facility] Comment: Interpretive Data Percent cell count reference ranges are not reported, since discordance with absolute values may lead to misinterpretation of CBC data. Current Interpretive Data was last revised on 2017. Blood 04/19/2021 6:57 AM CDT 04/19/2021 6:57 AM CDT Javon Kauffman MD LAB BLOOD ORDERABLES F inal Result [facility] [address] Department of Laboratories [place], [place] [id number] * (ABNORMAL) CBC with auto differential (04/19/2021 6:57 AM CDT) WBC 10.7(H) 3.8 - 9.9 K/cumm [facility] Hgb 11.3(L) 11.9 - 15.5 g/dL [facility] Hct 36.7 35.6 - 45.5 % [facility] Plt 229 150 - 400 K/cumm [facility] MPV 12.1 9.1 - 12.3 fL [facility] RBC 3.99 3.90 - 5.20 M/cumm [facility] MCV 92.0 81.3 - 96.4 fL [facility] MCH 28.3 27.1 - 33.3 pg [facility] MCHC 30.8(L) 32.3 - 35.7 g/dL [facility] RDW CV 14.8 11.1 - 14.9 % [facility] RDW SD 50.5(H) 35.7 - 48.1 fL [facility] NRBC abs 0.00 0.00 - 0.01 K/cumm [facility] Blood 04/19/2021 6:57 AM CDT 04/19/2021 6:57 AM CDT us Javon Kauffman MD LAB BLOOD ORDER[place] [address] [address] Department [place] [address] * (ABNORMAL) Comprehensive metabolic panel (04/19/2021 6:57 AM CDT) Sodium 143 135 - 145 mmol/L [facility] Potassium, pl 3.8 3.3 - 4.9 mmol/L [facility] Chloride 103 97 - 110 mmol/L [facility] CO2 29 22 - 32 mmol/L [facility] Anion gap 11 2 - 15 mmol/L [facility] BUN 15 8 - 25 mg/dL [facility] Creatinine 0.59(L) 0.60 - 1.10 mg/dL [facility] Glucose 138 70 - 199 mg/dL [facility] Comment: Interpretive Data Fasting glucose >/= 126 mg/dl is diagnostic for diabetes. ?? Fasting is defined as no caloric intake for at least 8 hours. Fasting glucose between 100 mg/dl to 125 mg/dl is diagnostic of prediabetes. In a patient with classic symptoms of hyperglycemia or hyperglycemic crisis, a random glucose >/= 200 mg/dl is diagnostic for diabetes. In the absence of unequivocal hyperglycemia, results should be confirmed by repeat testing. The classification and Diagnosis of Diabetes Diabetes Care 2017;40 (Suppl. 1):S11. Current interpretive data was last revised 2017. Calcium 8.3(L) 8.5 - 10.3 mg/dL [facility] Bilirubin, total 0.5 0.1 - 1.2 mg/dL [facility] Protein, pl 6.0(L) 6.5 - 8.5 g/dL [facility] Albumin 3.1(L) 3.5 - 5.0 g/dL [facility] Alk phos 70 40 - 130 Units/L [facility] ALT 32 7 - 45 Units/L [facility] AST 37 10 - 45 Units/L [facility] Blood 04/19/2021 6:57 AM CDT 04/19/2021 6:57 AM CDT Johnny Salgado MD LAB BLOOD ORDERABLES Fi nal Result Performing Organization Address City/[facility]/ZIP Co de Phone Number [facility] [place] [address] [address] [facility] [place] [address] * (ABNORMAL) POCT glucose (04/18/2021 8:43 PM CDT) Glucose, POC 235(H) 70 - 199 mg/dL [facility] Blood 04/18/2021 8:43 PM CDT 04/18/2021 8:43 PM CDT Narayan Joy MD LAB POCT ORDERABLES - DEVICE Final Result Performing Organization Address [facility] Co de Phone Number [facility] [place] [address] [address] Department [employer] [place], [place] [id number] * (ABNORMAL) POCT glucose (04/18/2021 5:32 PM CDT) Glucose, POC 255(H) 70 - 199 mg/dL [facility] Blood 04/18/2021 5:32 PM CDT 04/18/2021 5:32 PM CDT Narayan Joy MD LAB POCT ORDERABLES - DEVICE Final Result Performing Organization Address City/[facility] Co de Phone Number [facility] [place] [address] [address] Department [employer] [place], [place] [id number] * POCT glucose (04/18/2021 11:53 AM CDT) Glucose, POC 153 70 - 199 mg/dL [facility] Blood 04/18/2021 11:5 3 AM CDT 04/18/2021 11:53 AM CDT Narayan Joy MD LAB POCT ORDERABLES - DEVICE Final Result [facility] [address] [address] Department [place] [address] * eGFR (04/18/2021 7:39 AM CDT) Pathologist [facility] eGFR 113 mL/min/1.7 3 m2 [facility] Comment: Interpretive Data Reference Interval Normal ?>/= 90 mL/min/1.73m2 Mildly decreased* ? 60 - 89 mL/min/1.73m2 Mildly to moderately decreased ?45 - 59 mL/min/1.73m2 Moderately to severely decreased ??30 - 44 mL/min/1.73m2 Severely decreased ?15 - 29 mL/min/1.73m2 Kidney Failure ?< 15 ??mL/min/1.73m2 *Relative to young adult level Estimated glomerular filtration rate is determined by the CKD-EPI equation recommended by the National Kidney Foundation (KDIGO 2012 Clinical Practice Guideline for the Evaluation and Management of Chronic Kidney Disease. Kidney Intnl Suppl Jun 2012;3:1). The CKD-EPI equation should not be used for patients with unstable renal function and has not been validated in children and those over 70. Current interpretive data was last reviewed 2020 Blood 04/18/2021 7:39 AM CDT 04/18/2021 8:00 AM CDT us Johnny Salgado MD LAB BLOOD ORDERABLES Fi nal Result [facility] [address] [address] Department [place] [address] * (ABNORMAL) Differential, auto (04/18/2021 7:39 AM CDT) Neutrophil abs 7.8(H) 1.7 - 6.5 K/cumm [facility] Imm gran abs 0.1 0.0 - 0.1 K/cumm [facility] Lymphocyte abs 0.8 0.8 - 3.3 K/cumm [facility] Monocyte abs 0.5 0.2 - 0.8 K/cumm [facility] Eosinophil abs 0.1 0.0 - 0.5 K/cumm [facility] Basophil abs 0.0 0.0 - 0.1 K/cumm [facility] Neutrophil pct 84.5 % [facility] Comment: Interpretive Data Percent cell count reference ranges are not reported, since discordance with absolute values may lead to misinterpretation of CBC data. Current Interpretive Data was last revised on 2017. Imm gran pct 0.7 % [facility] Comment: Interpretive Data Percent cell count reference ranges are not reported, since discordance with absolute values may lead to misinterpretation of CBC data. Current Interpretive Data was last revised on 2017. Lymphocyte pct 8.4 % [facility] Comment: Interpretive Data Percent cell count reference ranges are not reported, since discordance with absolute values may lead to misinterpretation of CBC data. Current Interpretive Data was last revised on 2017. Monocyte pct 5.2 % [facility] Comment: Interpretive Data Percent cell count reference ranges are not reported, since discordance with absolute values may lead to misinterpretation of CBC data. Current Interpretive Data was last revised on 2017. Eosinophil pct 1.2 % [facility] Comment: Interpretive Data Percent cell count reference ranges are not reported, since discordance with absolute values may lead to misinterpretation of CBC data. Current Interpretive Data was last revised on 2017. Basophil pct 0.0 % [facility] Comment: Interpretive Data Percent cell count reference ranges are not reported, since discordance with absolute values may lead to misinterpretation of CBC data. Current Interpretive Data was last revised on 2017. Blood 04/18/2021 7:39 AM CDT 04/18/2021 7:59 AM CDT Javon Kauffman MD LAB BLOOD ORDERABLES F inal Result Performing Organization Address City/[facility]/ZIP Co de Phone Number [facility] [place] [address] [address] [employer] [place] [address] * (ABNORMAL) CBC with auto differential (04/18/2021 7:39 AM CDT) WBC 9.2 3.8 - 9.9 K/cumm [facility] Hgb 11.5(L) 11.9 - 15.5 g/dL [facility] Hct 37.0 35.6 - 45.5 % [facility] Plt 205 150 - 400 K/cumm [facility] MPV 12.2 9.1 - 12.3 fL [facility] RBC 4.08 3.90 - 5.20 M/cumm [facility] MCV 90.7 81.3 - 96.4 fL [facility] MCH 28.2 27.1 - 33.3 pg [facility] MCHC 31.1(L) 32.3 - 35.7 g/dL [facility] RDW CV 14.7 11.1 - 14.9 % [facility] RDW SD 49.1(H) 35.7 - 48.1 fL [facility] NRBC abs 0.00 0.00 - 0.01 K/cumm [facility] Blood 04/18/2021 7:39 AM CDT 04/18/2021 7:59 AM CDT Javon Kauffman MD LAB BLOOD ORDERABLES F inal Result Performing Organization Address City/[facility]/ZIP Co de Phone Number [facility] [place] [address] [address] Department [place] [address] * (ABNORMAL) Comprehensive metabolic panel (04/18/2021 7:39 AM CDT) Sodium 142 135 - 145 mmol/L [facility] Potassium, pl 3.6 3.3 - 4.9 mmol/L [facility] Chloride 103 97 - 110 mmol/L [facility] CO2 28 22 - 32 mmol/L [facility] Anion gap 11 2 - 15 mmol/L [facility] BUN 14 8 - 25 mg/dL [facility] Creatinine 0.54(L) 0.60 - 1.10 mg/dL [facility] Glucose 139 70 - 199 mg/dL [facility] Comment: Interpretive Data Fasting glucose >/= 126 mg/dl is diagnostic for diabetes. ?? Fasting is defined as no caloric intake for at least 8 hours. Fasting glucose between 100 mg/dl to 125 mg/dl is diagnostic of prediabetes. In a patient with classic symptoms of hyperglycemia or hyperglycemic crisis, a random glucose >/= 200 mg/dl is diagnostic for diabetes. In the absence of unequivocal hyperglycemia, results should be confirmed by repeat testing. The classification and Diagnosis of Diabetes Diabetes Care 2017;40 (Suppl. 1):S11. Current interpretive data was last revised 2017. Calcium 8.4(L) 8.5 - 10.3 mg/dL [facility] Bilirubin, total 0.5 0.1 - 1.2 mg/dL [facility] Protein, pl 6.3(L) 6.5 - 8.5 g/dL [facility] Albumin 2.8(L) 3.5 - 5.0 g/dL [facility] Alk phos 70 40 - 130 Units/L [facility] ALT 32 7 - 45 Units/L [facility] AST 34 10 - 45 Units/L [facility] Blood 04/18/2021 7:39 AM CDT 04/18/2021 7:59 AM CDT us Johnny Salgado MD LAB BLOOD ORDERABLES Fi nal Result [facility] [place] [address] [address] Department [place] [address] * POCT glucose (04/18/2021 7:31 AM CDT) Glucose, POC 133 70 - 199 mg/dL [facility] Blood 04/18/2021 7:31 AM CDT 04/18/2021 7:31 AM CDT Narayan Joy MD LAB POCT ORDERABLES - DEVICE Final Result Performing Organization Address [facility] Co de Phone Number [facility] [place] [address] [address] [facility] [place] [address] * (ABNORMAL) POCT glucose (04/17/2021 8:45 PM CDT) Glucose, POC 207(H) 70 - 199 mg/dL [facility] Blood 04/17/2021 8:45 PM CDT 04/17/2021 8:45 PM CDT Narayan Joy MD LAB POCT ORDERABLES - DEVICE Final Result Performing Organization Address [facility] de Phone Number [facility] [place] [address] [address] Department [place] [address] * (ABNORMAL) POCT glucose (04/17/2021 5:44 PM CDT) Glucose, POC 288(H) 70 - 199 mg/dL [facility] Blood 04/17/2021 5:44 PM CDT 04/17/2021 5:44 PM CDT Narayan Joy MD LAB POCT ORDERABLES - DEVICE Final Result Performing Organization Address [facility] Co de Phone Number [facility] [place] [address] [address] [facility] [place] [address] * (ABNORMAL) POCT glucose (04/17/2021 11:12 AM CDT) Glucose, POC 224(H) 70 - 199 mg/dL [facility] Blood 04/17/2021 11:1 2 AM CDT 04/17/2021 11:12 AM CDT Narayan Joy MD LAB POCT ORDERABLES - DEVICE Final Result Performing Organization Address [facility] Co de Phone Number [facility] [place] [address] [address] Department [employer] [place], [place] [phone] * (ABNORMAL) Hemoglobin A1c (04/17/2021 10:43 AM CDT) Hgb A1C 7.1(H) 4.0 - 5.6 % [facility] Estimated Average Glucose 157 mg/dL [facility] Comment: The ADA recommends reporting an estimated Average Glucose (eAG) with all Hemoglobin A1c results using the equation derived from a study of 507 normal and diabetic adults. ??Minority populations were underrepresented and children were not included. ?? (Diabetes Care 31:7252-1364, 2008). ??The eAG is not equivalent to a fasting glucose. Blood 04/17/2021 10:4 3 AM CDT 04/17/2021 10:43 AM CDT Narayan Joy MD LAB BLOOD ORDERABLES F inal Result Performing Organization Address [facility] Co de Phone Number [facility] [place] [address] [address] Department [place] [address] * eGFR (04/17/2021 4:31 AM CDT) eGFR 118 mL/min/1.7 3 m2 [facility] Comment: Interpretive Data Reference Interval Normal ?>/= 90 mL/min/1.73m2 Mildly decreased* ? 60 - 89 mL/min/1.73m2 Mildly to moderately decreased ?45 - 59 mL/min/1.73m2 Moderately to severely decreased ??30 - 44 mL/min/1.73m2 Severely decreased ?15 - 29 mL/min/1.73m2 Kidney Failure ?< 15 ??mL/min/1.73m2 *Relative to young adult level Estimated glomerular filtration rate is determined by the CKD-EPI equation recommended by the National Kidney Foundation (KDIGO 2012 Clinical Practice Guideline for the Evaluation and Management of Chronic Kidney Disease. Kidney Intnl Suppl Jun 2012;3:1). The CKD-EPI equation should not be used for patients with unstable renal function and has not been validated in children and those over 70. Current interpretive data was last reviewed 2020 Blood 04/17/2021 4:31 AM CDT 04/17/2021 4:54 AM CDT Johnny Salgado MD LAB BLOOD ORDERABLES Fi nal Result [facility] [address] [address] Department [place] [address] * (ABNORMAL) Differential, auto (04/17/2021 4:31 AM CDT) Neutrophil abs 8.5(H) 1.7 - 6.5 K/cumm [facility] Imm gran abs 0.0 0.0 - 0.1 K/cumm [facility] Lymphocyte abs 0.6(L) 0.8 - 3.3 K/cumm [facility] Monocyte abs 0.4 0.2 - 0.8 K/cumm [facility] Eosinophil abs 0.0 0.0 - 0.5 K/cumm [facility] Basophil abs 0.0 0.0 - 0.1 K/cumm [facility] Neutrophil pct 88.9 % [facility] Comment: Interpretive Data Percent cell count reference ranges are not reported, since discordance with absolute values may lead to misinterpretation of CBC data. Current Interpretive Data was last revised on 2017. Imm gran pct 0.3 % [facility] Comment: Interpretive Data Percent cell count reference ranges are not reported, since discordance with absolute values may lead to misinterpretation of CBC data. Current Interpretive Data was last revised on 2017. Lymphocyte pct 6.3 % [facility] Comment: Interpretive Data Percent cell count reference ranges are not reported, since discordance with absolute values may lead to misinterpretation of CBC data. Current Interpretive Data was last revised on 2017. Monocyte pct 4.4 % [facility] Comment: Interpretive Data Percent cell count reference ranges are not reported, since discordance with absolute values may lead to misinterpretation of CBC data. Current Interpretive Data was last revised on 2017. Eosinophil pct 0.1 % [facility] Comment: Interpretive Data Percent cell count reference ranges are not reported, since discordance with absolute values may lead to misinterpretation of CBC data. Current Interpretive Data was last revised on 2017. Basophil pct 0.0 % [facility] Comment: Interpretive Data Percent cell count reference ranges are not reported, since discordance with absolute values may lead to misinterpretation of CBC data. Current Interpretive Data was last revised on 2017. Blood 04/17/2021 4:31 AM CDT 04/17/2021 4:53 AM CDT Javon Kauffman MD LAB BLOOD ORDERABLES F inal Result [facility] [address] Department [place] [address] * (ABNORMAL) CBC with auto differential (04/17/2021 4:31 AM CDT) WBC 9.5 3.8 - 9.9 K/cumm [facility] Hgb 11.5(L) 11.9 - 15.5 g/dL [facility] Hct 36.5 35.6 - 45.5 % [facility] Plt 203 150 - 400 K/cumm [facility] MPV 12.1 9.1 - 12.3 fL [facility] RBC 4.13 3.90 - 5.20 M/cumm [facility] MCV 88.4 81.3 - 96.4 fL [facility] MCH 27.8 27.1 - 33.3 pg [facility] MCHC 31.5(L) 32.3 - 35.7 g/dL [facility] RDW CV 14.6 11.1 - 14.9 % [facility] RDW SD 47.7 35.7 - 48.1 fL [facility] NRBC abs 0.00 0.00 - 0.01 K/cumm [facility] Blood 04/17/2021 4:31 AM CDT 04/17/2021 4:53 AM CDT us Javon Kauffman MD LAB BLOOD ORDERABLES F inal Result [facility] [address] Department [place] [address] * (ABNORMAL) Comprehensive metabolic panel (04/17/2021 4:31 AM CDT) Sodium 141 135 - 145 mmol/L [facility] Potassium, pl 3.5 3.3 - 4.9 mmol/L [facility] Chloride 102 97 - 110 mmol/L [facility] CO2 29 22 - 32 mmol/L [facility] Anion gap 10 2 - 15 mmol/L [facility] BUN 12 8 - 25 mg/dL [facility] Creatinine 0.47(L) 0.60 - 1.10 mg/dL [facility] Glucose 172 70 - 199 mg/dL [facility] Comment: Interpretive Data Fasting glucose >/= 126 mg/dl is diagnostic for diabetes. ?? Fasting is defined as no caloric intake for at least 8 hours. Fasting glucose between 100 mg/dl to 125 mg/dl is diagnostic of prediabetes. In a patient with classic symptoms of hyperglycemia or hyperglycemic crisis, a random glucose >/= 200 mg/dl is diagnostic for diabetes. In the absence of unequivocal hyperglycemia, results should be confirmed by repeat testing. The classification and Diagnosis of Diabetes Diabetes Care 2017;40 (Suppl. 1):S11. Current interpretive data was last revised 2017. Calcium 8.3(L) 8.5 - 10.3 mg/dL [facility] Bilirubin, total 0.5 0.1 - 1.2 mg/dL [facility] Protein, pl 6.1(L) 6.5 - 8.5 g/dL [facility] Albumin 2.9(L) 3.5 - 5.0 g/dL [facility] Alk phos 76 40 - 130 Units/L [facility] ALT 39 7 - 45 Units/L [facility] AST 52(H) 10 - 45 Units/L [facility] Blood 04/17/2021 4:31 AM CDT 04/17/2021 4:53 AM CDT Johnny Salgado MD LAB BLOOD ORDERABLES Fi nal Result [facility] [address] Department [place] [address] * (ABNORMAL) Differential, auto (04/16/2021 12:08 PM CDT) Neutrophil abs 8.1(H) 1.7 - 6.5 K/cumm [facility] Imm gran abs 0.0 0.0 - 0.1 K/cumm [facility] Lymphocyte abs 0.5(L) 0.8 - 3.3 K/cumm [facility] Monocyte abs 0.4 0.2 - 0.8 K/cumm [facility] Eosinophil abs 0.0 0.0 - 0.5 K/cumm [facility] Basophil abs 0.0 0.0 - 0.1 K/cumm [facility] Neutrophil pct 89.5 % [facility] Comment: Interpretive Data Percent cell count reference ranges are not reported, since discordance with absolute values may lead to misinterpretation of CBC data. Current Interpretive Data was last revised on 2017. Imm gran pct 0.4 % [facility] Comment: Interpretive Data Percent cell count reference ranges are not reported, since discordance with absolute values may lead to misinterpretation of CBC data. Current Interpretive Data was last revised on 2017. Lymphocyte pct 5.3 % [facility] Comment: Interpretive Data Percent cell count reference ranges are not reported, since discordance with absolute values may lead to misinterpretation of CBC data. Current Interpretive Data was last revised on 2017. Monocyte pct 4.8 % [facility] Comment: Interpretive Data Percent cell count reference ranges are not reported, since discordance with absolute values may lead to misinterpretation of CBC data. Current Interpretive Data was last revised on 2017. Eosinophil pct 0.0 % [facility] Comment: Interpretive Data Percent cell count reference ranges are not reported, since discordance with absolute values may lead to misinterpretation of CBC data. Current Interpretive Data was last revised on 2017. Basophil pct 0.0 % [facility] Comment: Interpretive Data Percent cell count reference ranges are not reported, since discordance with absolute values may lead to misinterpretation of CBC data. Current Interpretive Data was last revised on 2017. Blood 04/16/2021 12:0 8 PM CDT 04/16/2021 12:12 PM CDT Javon Kauffman MD LAB BLOOD ORDERABLES F inal Result [facility] [address] Department [place] [address] * (ABNORMAL) CBC with auto differential (04/16/2021 12:08 PM CDT) WBC 9.1 3.8 - 9.9 K/cumm [facility] Hgb 12.0 11.9 - 15.5 g/dL [facility] Hct 38.2 35.6 - 45.5 % [facility] Plt 192 150 - 400 K/cumm [facility] MPV 11.7 9.1 - 12.3 fL [facility] RBC 4.34 3.90 - 5.20 M/cumm [facility] MCV 88.0 81.3 - 96.4 fL [facility] MCH 27.6 27.1 - 33.3 pg [facility] MCHC 31.4(L) 32.3 - 35.7 g/dL [facility] RDW CV 14.5 11.1 - 14.9 % [facility] RDW SD 47.2 35.7 - 48.1 fL [facility] NRBC abs 0.00 0.00 - 0.01 K/cumm [facility] Blood 04/16/2021 12:0 8 PM CDT 04/16/2021 12:12 PM CDT Javon Kauffman MD LAB BLOOD ORDERABLES F inal Result [facility] [address] Department [place] [address] * eGFR (04/16/2021 8:35 AM CDT) eGFR 117 mL/min/1.7 3 m2 [facility] Comment: Interpretive Data Reference Interval Normal ?>/= 90 mL/min/1.73m2 Mildly decreased* ? 60 - 89 mL/min/1.73m2 Mildly to moderately decreased ?45 - 59 mL/min/1.73m2 Moderately to severely decreased ??30 - 44 mL/min/1.73m2 Severely decreased ?15 - 29 mL/min/1.73m2 Kidney Failure ?< 15 ??mL/min/1.73m2 *Relative to young adult level Estimated glomerular filtration rate is determined by the CKD-EPI equation recommended by the National Kidney Foundation (KDIGO 2012 Clinical Practice Guideline for the Evaluation and Management of Chronic Kidney Disease. Kidney Intnl Suppl Jun 2012;3:1). The CKD-EPI equation should not be used for patients with unstable renal function and has not been validated in children and those over 70. Current interpretive data was last reviewed 2020 Blood 04/16/2021 8:35 AM CDT 04/16/2021 8:38 AM CDT us Johnny Salgado MD LAB BLOOD ORDERABLES Fi nal Result [facility] [address] Department [employer] [place] [address] * (ABNORMAL) D-dimer, quantitative (04/16/2021 8:35 AM CDT) D-Dimer 879(H) <=499 ng/mL FEU [facility] Comment: Interpretive data FDA approved the D-dimer, in conjunction with a low or moderate pretest probability score, to exclude venous thromboembolic events (VTE) (PE and DVT) in outpatients when the D-dimer result is < 500 ng/ml FEU. ?? Evidence supports using an age-adjusted D-dimer cut-off for outpatients older than 50 (age x 10) to improve specificity without sacrificing sensitivity. Example: age 68, VTE cut-off 680 ng/ml FEU. References; Schouten HT et al. Brit Med J. 2013;346:f2492. Loretta ARROYO et al. Annals Int Med. 2015;163:701-11. Current interpretive data was last revised on 2019. Blood 04/16/2021 8:35 AM CDT 04/16/2021 8:38 AM CDT Johnny Salgado MD LAB BLOOD ORDERABLES Fi nal Result Performing Organization Address [facility] de Phone Number [facility] [address] Department [employer] [place] [address] * (ABNORMAL) CRP (acute phase) (04/16/2021 8:35 AM CDT) CRP 77.6(H) <=10.0 mg/L [facility] Blood 04/16/2021 8:35 AM CDT 04/16/2021 8:38 AM CDT Johnny Salgado MD LAB BLOOD ORDERABLES Fi nal Result Performing Organization Address [facility] Co de Phone Number [facility] [address] Department [employer] [place] [address] * (ABNORMAL) Comprehensive metabolic panel (04/16/2021 8:35 AM CDT) Sodium 143 135 - 145 mmol/L [facility] Potassium, pl 3.3 3.3 - 4.9 mmol/L [facility] Chloride 104 97 - 110 mmol/L [facility] CO2 29 22 - 32 mmol/L [facility] Anion gap 10 2 - 15 mmol/L [facility] BUN 12 8 - 25 mg/dL [facility] Creatinine 0.49(L) 0.60 - 1.10 mg/dL [facility] Glucose 171 70 - 199 mg/dL [facility] Comment: Interpretive Data Fasting glucose >/= 126 mg/dl is diagnostic for diabetes. ?? Fasting is defined as no caloric intake for at least 8 hours. Fasting glucose between 100 mg/dl to 125 mg/dl is diagnostic of prediabetes. In a patient with classic symptoms of hyperglycemia or hyperglycemic crisis, a random glucose >/= 200 mg/dl is diagnostic for diabetes. In the absence of unequivocal hyperglycemia, results should be confirmed by repeat testing. The classification and Diagnosis of Diabetes Diabetes Care 2017;40 (Suppl. 1):S11. Current interpretive data was last revised 2017. Calcium 8.4(L) 8.5 - 10.3 mg/dL [facility] Bilirubin, total 0.4 0.1 - 1.2 mg/dL [facility] Protein, pl 6.5 6.5 - 8.5 g/dL [facility] Albumin 3.2(L) 3.5 - 5.0 g/dL [facility] Alk phos 71 40 - 130 Units/L [facility] ALT 37 7 - 45 Units/L [facility] AST 42 10 - 45 Units/L [facility] Blood 04/16/2021 8:35 AM CDT 04/16/2021 8:38 AM CDT us Johnny Salgado MD LAB BLOOD ORDERABLES Fi nal Result Performing Organization Address City/[facility]/ZIP Co de Phone Number [facility] [address] Department [place] [address] * POCT glucose (04/15/2021 11:07 PM CDT) [facility] Signature Glucose, POC 135 70 - 199 mg/dL [facility] Blood 04/15/2021 11:0 7 PM CDT 04/15/2021 11:07 PM CDT Valentina Oates MD LAB POCT ORDERABLES - DEV ICE Final Result [facility] [address] [facility] [place] [address] * (ABNORMAL) CRP (acute phase) (04/15/2021 11:17 AM CDT) CRP 75.4(H) <=10.0 mg/L [facility] Blood 04/15/2021 11:1 7 AM CDT 04/15/2021 11:23 AM CDT us Johnny Salgado MD LAB BLOOD ORDERABLES Fi nal Result Performing Organization Address [facility] Co de Phone Number [facility] [address] [address] [facility] [place] [address] * Lactate (04/14/2021 11:05 PM CDT) Lactate 0.9 0.7 - 2.0 mmol/L [facility] Blood 04/14/2021 11:0 5 PM CDT 04/14/2021 11:10 PM CDT Dustin Blanca MD LAB BLOOD ORDERABLES F inal Result Performing Organization Address [facility] Co de Phone Number [facility] [address] [facility] [place] [address] * CT Chest PE (CTA) W Contrast (04/14/2021 4:50 AM CDT) Anatomical Region Laterality Modality Body N/A Computed Tomogra phy 04/14/2021 4:37 AM CDT Impressions 04/14/2021 7:27 AM CDT NO ACUTE OR CHRONIC PULMONARY EMBOLISM. EXTENSIVE BILATERAL INFILTRATES CONSISTENT WITH COVID 19 APPEARANCE. Stat report by [facility] Electronically signed by: Silviano Whitehead M.D. Narrative 04/14/2021 7:27 AM CDT EXAMINATION: CTA chest PE protocol with contrast HISTORY: Cough and SOB ORDER DATE: 04/14/2021 4:20 AM TECHNIQUE: ?? CT chest images were acquired using a chest angiographic protocol with 3-D imaging optimized for PE ??is obtained [id number] mL of Optiray 350. 2D Coronal and sagittal reformats were obtained. ??MIP and/or 3-D reconstructed images were created by the technologist. FINDINGS: Pulmonary arteries: No pulmonary embolus seen. RV/LV ratio: Less than 0.9 ?? Lung parenchyma: Bilateral extensive groundglass infiltrates throughout both lungs Central airways: Normal. Mediastinum/Adenopathy: No evidence of mediastinal mass or adenopathy. ?? Heart and great vessels: Normal. . ??No evidence of aortic aneurysm or dissection Other findings: None Upper abdomen: possible gallbladder sludge. Bones: Unremarkable. Procedure Note Silviano Whitehead MD - 04/14/2021 EXAMINATION: CTA chest PE protocol with contrast HISTORY: Cough and SOB ORDER DATE: 04/14/2021 4:20 AM TECHNIQUE: CT chest images were acquired using a chest angiographic protocol with 3-D imaging optimized for PE is obtained [id number] mL of Optiray 350. 2D Coronal and sagittal reformats were obtained. MIP and/or 3-D reconstructed images were created by the technologist. FINDINGS: Pulmonary arteries: No pulmonary embolus seen. RV/LV ratio: Less than 0.9 Lung parenchyma: Bilateral extensive groundglass infiltrates throughout both lungs Central airways: Normal. Mediastinum/Adenopathy: No evidence of mediastinal mass or adenopathy. Heart and great vessels: Normal. . No evidence of aortic aneurysm or dissection Other findings: None Upper abdomen: possible gallbladder sludge. Bones: Unremarkable. IMPRESSION: NO ACUTE OR CHRONIC PULMONARY EMBOLISM. EXTENSIVE BILATERAL INFILTRATES CONSISTENT WITH COVID 19 APPEARANCE. Stat report by [facility] Electronically signed by: Silviano Whitehead M.D. Adrian Harrison MD IM CT PROCEDURES Final Result * Troponin T high-sensitivity 2-hour (04/14/2021 3:33 AM CDT) Trop T hs <6 <=14 ng/L [facility] Comment: Interpretive Data For further hscTnT resources including the diagnostic algorithm and an aid in interpretation, copy and paste this link: https://nrl.testcatalog.org/show/[email or web address] Current Interpretive Data last revised 2020. Testing performed by: [facility], [address] [place] [address] Trop T hs delta 0 ng/L [facility] Comment:Testing performed by : [facility], [facility] [address], [place] [address] Trop T hs interp Insignificant [facility] Comment:Testing performed by : [facility], [facility] [place] [address] Blood 04/14/2021 3:33 AM CDT 04/14/2021 3:37 AM CDT Adrian Harrison MD LAB BLOOD ORDERABLES Final Res ult Performing Organization Address [facility] de Phone Number [facility] [address] [address] Department [place] [address] * ECG 12 lead (04/14/2021 2:09 AM CDT) 04/14/2021 2:09 AM CDT Narrative [facility] - 04/14/2021 9:11 AM CDT Vent Rate: 95 bpm RR Interval: 628 msec ME Interval: 142 msec QRS Duration: 90 msec QT Interval: 324 msec QTC Interval: 377 msec P-R-T [place]: 20 - -9 - 3 degrees SINUS RHYTHM LOW QRS VOLTAGE IN PRECORDIAL LEADS [QRS DEFLECTION < 1.0 mV IN CHEST LEADS] BORDERLINE ECG Electronically Signed By: Valdemar Pittman MD, [facility] Adrian Harrison MD ECG ORDERABLES Final Result Performing Organization Address [facility] de Phone Number [facility] [employer] [facility] * eGFR (04/14/2021 1:47 AM CDT) eGFR 107 mL/min/1.7 3 m2 [facility] Comment: Interpretive Data Reference Interval Normal ?>/= 90 mL/min/1.73m2 Mildly decreased* ? 60 - 89 mL/min/1.73m2 Mildly to moderately decreased ?45 - 59 mL/min/1.73m2 Moderately to severely decreased ??30 - 44 mL/min/1.73m2 Severely decreased ?15 - 29 mL/min/1.73m2 Kidney Failure ?< 15 ??mL/min/1.73m2 *Relative to young adult level Estimated glomerular filtration rate is determined by the CKD-EPI equation recommended by the National Kidney Foundation (KDIGO 2012 Clinical Practice Guideline for the Evaluation and Management of Chronic Kidney Disease. Kidney Intnl Suppl Jun 2012;3:1). The CKD-EPI equation should not be used for patients with unstable renal function and has not been validated in children and those over 70. Current interpretive data was last reviewed 2020 Testing performed [facility]: [facility] [address], [place] [address] Blood 04/14/2021 1:47 AM CDT 04/14/2021 1:49 AM CDT us Adrian Harrison MD LAB BLOOD ORDERABLES Final Res ult [facility] [address] Department [place] [address] * (ABNORMAL) Differential, auto (04/14/2021 1:47 AM CDT) Neutrophil abs 5.5 1.7 - 6.5 K/cumm [facility] Comment:Testing performed by : [facility] [address], [place] [address] Imm gran abs 0.0 0.0 - 0.1 K/cumm [facility] Comment:Testing performed by : [facility] [address], [place] [address] Lymphocyte abs 0.5(L) 0.8 - 3.3 K/cumm [facility] Comment:Testing performed by : [facility] [address], [place] [address] Monocyte abs 0.4 0.2 - 0.8 K/cumm [facility] Comment:Testing performed by : [facility], [address], [place] [address] Eosinophil abs 0.0 0.0 - 0.5 K/cumm [facility] Comment:Testing performed by : [facility], [facility] [address] [place] [address] Basophil abs 0.0 0.0 - 0.1 K/cumm [facility] Comment:Testing performed by : [facility], [place] [address] Neutrophil pct 85.2 % [facility] Comment: Interpretive Data Percent cell count reference ranges are not reported, since discordance with absolute values may lead to misinterpretation of CBC data. Current Interpretive Data was last revised on 2017. Testing performed by: [facility], [facility] [place] [address] Imm gran pct 0.3 % [facility] Comment: Interpretive Data Percent cell count reference ranges are not reported, since discordance with absolute values may lead to misinterpretation of CBC data. Current Interpretive Data was last revised on 2017. Testing performed by: [place] [address] [place] [address] Lymphocyte pct 8.2 % [facility] Comment: Interpretive Data Percent cell count reference ranges are not reported, since discordance with absolute values may lead to misinterpretation of CBC data. Current Interpretive Data was last revised on 2017. Testing performed by: [place] [address] [place] [address] Monocyte pct 6.0 % [facility] Comment: Interpretive Data Percent cell count reference ranges are not reported, since discordance with absolute values may lead to misinterpretation of CBC data. Current Interpretive Data was last revised on 2017. Testing performed by: [place] [address] [place] [address] Eosinophil pct 0.0 % [facility] Comment: Interpretive Data Percent cell count reference ranges are not reported, since discordance with absolute values may lead to misinterpretation of CBC data. Current Interpretive Data was last revised on 2017. Testing performed by: [place] [address] [place] [address] Basophil pct 0.3 % [facility] Comment: Interpretive Data Percent cell count reference ranges are not reported, since discordance with absolute values may lead to misinterpretation of CBC data. Current Interpretive Data was last revised on 2017. Testing performed by: [facility], [place] [address] Blood 04/14/2021 1:47 AM CDT 04/14/2021 1:49 AM CDT Adrian Harrison MD LAB BLOOD ORDERABLES Final Res ult Performing Organization Address [facility] Co de Phone Number [facility] [address] [place] [address] * Troponin T high-sensitivity series (baseline, 2hr, 4hr, 6hr) (04/14/2021 1:47 AM CDT) Trop T hs <6 <=14 ng/L [facility] Comment: Interpretive Data For further hscTnT resources including the diagnostic algorithm and an aid in interpretation, copy and paste this link: https://nrl.testcatalog.org/show/[email or web address] Current Interpretive Data last revised 2020. Testing performed by: [facility], [place] [address] Blood 04/14/2021 1:47 AM CDT 04/14/2021 1:49 AM CDT Result [facility] Adrian Harrison MD LAB BLOOD ORDERABLES Final Res ult Performing Organization Address [facility] de Phone Number [facility] [address] [place] [address] * Magnesium (04/14/2021 1:47 AM CDT) Pathologist [facility] Magnesium 2.1 1.4 - 2.5 mg/dL [facility] Comment:Testing performed by : [facility], [place] [address] Blood 04/14/2021 1:47 AM CDT 04/14/2021 1:49 AM CDT Result [facility] Adrian Harrison MD LAB BLOOD ORDERABLES Final Res ult Performing Organization Address [facility] de Phone Number [facility] [address] [address] Department [place] [address] * Pro B-type natriuretic peptide (04/14/2021 1:47 AM CDT) NT-proBNP 20 <=300 pg/mL [facility] Comment: Interpretive Comments: A. Dyspnea in Acute Care Setting All Ages: ?< 300 pg/ml, acute heart failure unlikely. < 50 yrs: ?300 - 450 pg/ml, further investigation warranted. ? > 450 pg/ml, acute heart failure likely. 50 - 74 yrs: ? 300 - 900 pg/ml, further investigation warranted. ? > 900 pg/ml, acute heart failure likely . > or = 75 yrs: ? 450 - 1800 pg/ml, further investigation warranted. ? > 1800 pg/ml, acute heart failure likely. B. Non-acute Setting < 75 yrs ? < 125 pg/ml, rules out heart failure. ? > or = 125 pg/ml, further investigation warranted. > or = 75 yrs ?< 450 pg/ml, rules out heart failure. ? > or = 450 pg/ml, further investigation warranted. - Knowledge of each individual patient's NT-proBNP range may be more useful than using similar cut-points for every patient. Please note that marked elevations in NT-proBNP levels may be observed in state other than Left Ventricular Congestive Failure, including: acute coronary syndromes, right heart strain/failure (including pulmonary embolism and cor pulmonale), critical illness, renal failure, as well as advanced age. - References: 1. Zari SHAH et.al. Eur Heart J. 2006:27:330-337. 2. Sincere RW, Liane ELIZABETH. J. AM Babita Cardiol: Cardiovasc Imag. 2009;2: 216- 225. Interpretive Data Last Revised Date: 2018. Testing performed by: [facility], [facility] [place] [address] Blood 04/14/2021 1:47 AM CDT 04/14/2021 1:49 AM CDT Adrian Harrison MD LAB BLOOD ORDERABLES Final Res ult Performing Organization Address [facility] de Phone Number [facility] [address] [address] Department [employer] [place] [address] * (ABNORMAL) D-dimer, quantitative (04/14/2021 1:47 AM CDT) Pathologist [facility] D-Dimer 662(H) <=499 ng/mL FEU [facility] Comment: Interpretive data FDA approved the D-dimer, in conjunction with a low or moderate pretest probability score, to exclude venous thromboembolic events (VTE) (PE and DVT) in outpatients when the D-dimer result is < 500 ng/ml FEU. ?? Evidence supports using an age-adjusted D-dimer cut-off for outpatients older than 50 (age x 10) to improve specificity without sacrificing sensitivity. Example: age 68, VTE cut-off 680 ng/ml FEU. References; Schouten HT et al. Brit Med J. 2013;346:f2492. Loretta ARROYO et al. Annals Int Med. 2015;163:701-11. Current interpretive data was last revised on 2019. Testing performed by: [facility], [facility] [place] [address] Blood 04/14/2021 1:47 AM CDT 04/14/2021 1:49 AM CDT Adrian Harrison MD LAB BLOOD ORDERABLES Final Res ult Performing Organization Address [facility] Co de Phone Number [facility] [address] [address] [place], [place] [id number] * (ABNORMAL) CBC with auto differential (04/14/2021 1:47 AM CDT) WBC 6.5 3.8 - 9.9 K/cumm [facility] Comment:Testing performed by : [facility] [place] [address] Hgb 13.1 11.9 - 15.5 g/dL [facility] Comment:Testing performed by : [facility], [place] [address] Hct 39.9 35.6 - 45.5 % [facility] Comment:Testing performed by : [facility] [place] [address] Plt 131(L) 150 - 400 K/cumm CERNER CH Comment:Testing performed by : [facility] [place] [address] MPV 11.9 9.1 - 12.3 fL CERNER Comment:Testing [facility] : [facility] [place] [address] RBC 4.62 3.90 - 5.20 M/cumm CERNER CH Comment:Testing performed by : [facility] [address] MCV 86.4 81.3 - 96.4 fL CERNER CH Comment:Testing performed by : [facility] [place] [address] MCH 28.4 27.1 - 33.3 pg CERNER Comment:Testing performed by : [facility] [place] [address] MCHC 32.8 32.3 - 35.7 g/dL CERNER Comment:Testing performed by : [facility] [place] [address] RDW CV 14.5 11.1 - 14.9 % CERNER Comment:Testing performed by : [facility] [place] [address] RDW SD 45.6 35.7 - 48.1 fL CERNER Comment:Testing performed by : [facility] [address] Blood 04/14/2021 1:47 AM CDT 04/14/2021 1:49 AM CDT us Adrian Harrison MD LAB BLOOD ORDERABLES Final Res ult [facility] [address] [address] Department [place] [address] * (ABNORMAL) Comprehensive metabolic panel (04/14/2021 1:47 AM CDT) Sodium 136 135 - 145 mmol/L CERNER Comment:Testing performed by : [facility] [address], [place] [address] Potassium, pl 3.4 3.3 - 4.9 mmol/L CERNER Comment:Testing performed by : [facility] [place] [address] Chloride 95(L) 97 - 110 mmol/L CERNER Comment:Testing performed by : [facility] [address] CO2 26 22 - 32 mmol/L CERNER Comment:Testing performed by : [facility] [place] [address] Anion gap 15 2 - 15 mmol/L CERNER Comment:Testing performed by : [facility] [address], [place] [address] BUN 11 8 - 25 mg/dL CERNER Comment:Testing performed by : [facility] [place] [address] Creatinine 0.64 0.60 - 1.10 mg/dL CERNER Comment:Testing performed by : [facility] [place] [address] Glucose 181 70 - 199 mg/dL [facility] Comment: Interpretive Data Fasting glucose >/= 126 mg/dl is diagnostic for diabetes. ?? Fasting is defined as no caloric intake for at least 8 hours. Fasting glucose between 100 mg/dl to 125 mg/dl is diagnostic of prediabetes. In a patient with classic symptoms of hyperglycemia or hyperglycemic crisis, a random glucose >/= 200 mg/dl is diagnostic for diabetes. In the absence of unequivocal hyperglycemia, results should be confirmed by repeat testing. The classification and Diagnosis of Diabetes Diabetes Care 2017;40 (Suppl. 1):S11. Current interpretive data was last revised 2017. Testing performed by: [facility] [place] [address] Calcium 8.6 8.5 - 10.3 mg/dL [facility] Comment:Testing performed by : [facility] [place] [address] Bilirubin, total 0.5 0.1 - 1.2 mg/dL CERNER Comment:Testing performed by : [facility], [address] [place] [address] Protein, pl 7.6 6.5 - 8.5 g/dL CERNER CH Comment:Testing performed by : [facility] [address] [place] [address] Albumin 3.8 3.5 - 5.0 g/dL CERNER CH Comment:Testing performed by : [facility] [place] [address] Alk phos 74 40 - 130 Units/L CERNER CH Comment:Testing performed by : [facility] [place], [place] [address] ALT 37 7 - 45 Units/L CERNER CH Comment:Testing performed by : [facility] [address] [place], [place] [address] AST 52(H) 10 - 45 Units/L CERNER Comment:Testing performed by : [facility] [place] [place] [address] Blood 04/14/2021 1:47 AM CDT 04/14/2021 1:49 AM CDT us Adrian Harrison MD LAB BLOOD ORDERABLES Final [facility] [address] [address] Department [place] [address] * XR Chest 1 Vw Portable (04/14/2021 1:35 AM CDT) Anatomical Region Laterality Modality Body, Chest N/A Computed Radiogr aphy 04/14/2021 9:21 AM CDT Impressions 04/14/2021 9:21 AM CDT Left lower lobe lung infiltrates. Electronically signed by: Darrian Monsalve M.D. Narrative 04/14/2021 9:21 AM CDT EXAMINATION: XR CHEST 1 VIEW HISTORY: The patient is a 46-year-old female who presents with shortness of breath. TECHNIQUE: AP portable view of the chest. FINDINGS: Allowing for the poor inspiration, there is ill-defined alveolar type infiltrates in the lower half of the left lung. ??The remainder of the lungs are clear. ??Cardiovascular structures unremarkable. Procedure Note Darrian Monsalve MD - 04/14/2021 EXAMINATION: XR CHEST 1 VIEW HISTORY: The patient is a 46-year-old female who presents with shortness of breath. TECHNIQUE: AP portable view of the chest. FINDINGS: Allowing for the poor inspiration, there is ill-defined alveolar type infiltrates in the lower half of the left lung. The remainder of the lungs are clear. Cardiovascular structures unremarkable. IMPRESSION: Left lower lobe lung infiltrates. Electronically signed by: Darrian Monsalve M.D. Adrian Harrison MD IMG XR PROCEDURES Final Result documented in this encounter Visit Diagnoses Diagnosis Pneumonia due to COVID-19 virus- Primary Pneumonia due to COVID-19 virus Hypoxia Hypoxemia Physical deconditioning Muscular wasting and disuse atrophy, not elsewhere classified Hyperlipidemia Other and unspecified hyperlipidemia Hypothyroidism Unspecified hypothyroidism Acute respiratory failure with hypoxia (CMS/HCC) (HCC) Elevated AST (SGOT) Dehydration Hypoxia Hypoxemia Physical deconditioning Muscular wasting and disuse atrophy, not elsewhere classified documented in this encounter Admitting Diagnoses Diagnosis Pneumonia due to COVID-19 virus documented in this encounter Administered Medications Inactive Administered Medications - up to 3 most recent administrations Medication Order MAR Action Action Date Dose Rate Site acetaminophen (TYLENOL) tablet 650 mg 650 mg, oral, Every 4 hours PRN, headaches, fever, Starting on Wed04/29/21 at 0408 Given 05/09/2021 9:24 AM CRINKLING MACHINE OPERATOR 650 mg Given 05/08/2021 6:11 AM CRINKLING MACHINE OPERATOR 650 mg Given 05/06/2021 8:53 AM CRINKLING MACHINE OPERATOR 650 mg baricitinib (OLUMIANT) tablet EUA 4 mg 4 mg, oral, Daily, First dose on Wed04/15/21 at 1015, For 14 days, I attest the patient meets all EUA requirements, the Fact Sheet has been communicated, and the patient/caregiver has been/will be provided a copy. Yes Given 04/28/2021 8:53 AM CDT 4 mg Given 04/27/2021 8:58 AM CDT 4 mg Given 04/26/2021 8:47 AM CDT 4 mg benzocaine-menthoL (CEPACOL) lozenge 1 lozenge 1 lozenge, mouth/throat, Every 2 hours PRN, sore throat, Starting on Wed04/14/21 at 1523 Given 05/09/2021 9:24 AM CRINKLING MACHINE OPERATOR 1 lozenge Given 05/08/2021 11:46 AM CRINKLING MACHINE OPERATOR 1 lozenge Given 05/05/2021 8:49 PM CRINKLING MACHINE OPERATOR 1 lozenge benzonatate (TESSALON) capsule 100 mg 100 mg, oral, 3 times daily PRN, cough, Starting on Wed05/01/21 at 0942, Do not crush, chew, cut, dissolve, open or otherwise manipulate tablet/capsule., Indications: CoughIndications:Cough Given 05/08/2021 6:11 AM CRINKLING MACHINE OPERATOR 100 mg Given 05/05/2021 12:10 PM CRINKLING MACHINE OPERATOR 100 mg Given 05/04/2021 3:05 PM CRINKLING MACHINE OPERATOR 100 mg cetirizine (ZyrTEC) tablet 10 mg 10 mg, oral, Daily, First dose on Wed04/16/21 at 1130 Given 05/09/2021 9:19 AM CRINKLING MACHINE OPERATOR 10 mg Given 05/08/2021 8:54 AM CRINKLING MACHINE OPERATOR 10 mg Given 05/07/2021 8:48 AM CRINKLING MACHINE OPERATOR 10 mg dexAMETHasone (DECADRON) 4 mg/mL injection 6 mg 6 mg, intravenous, Administer over 2 Minutes, Every 24 hours scheduled, First dose on Wed04/15/21 at 0900 Given 04/29/2021 8:32 AM CDT 6 mg Given 04/28/2021 8:53 AM CDT 6 mg Given 04/27/2021 8:59 AM CDT 6 mg dextrose (D10W) 10% bolus 250 mL 250 mL, intravenous, at 1,000 mL/hr, Administer over 15 Minutes, Every 15 min PRN, blood glucose less than 70 mg/dL and UNABLE to swallow/take PO glucose/juice., Starting on Wed04/17/21 at 0829, After treatment for hypoglycemia, recheck BG followed by treatment every 15 minutes until the BG is greater than 100 mg/dL. Then check BG 1 hour post treatment. If BG is less than 100 mg/dL, repeat Q15 minute BG checks and treatment. Call MD for each episode of hypoglycemia., Indications: hypoglycemic disorderIndications:hypoglycemi c disorder dextrose oral liquid liquid 15 g 15 g, oral, Every 15 min PRN, low blood sugar, blood glucose less than 70 mg/dL, Starting on Martha 04/17/21 at 0829, If patient is alert and able to eat/drink, give 15 gm glucose or one juice (4 fluid ounces) NOT ORANGE JUICE. After treatment for hypoglycemia, recheck BG followed by treatment every 15 minutes until the BG is greater than 100 mg/dL. Then check BG 1 hour post-treatment. If BG is less than 100 mg/dL, repeat Q15 minute BG checks and treatment. Call MD for each episode of hypoglycemia., Indications: hypoglycemic disorderIndications:hypoglycemi c disorder enoxaparin (LOVENOX) syringe 40 mg 40 mg, subcutaneous, Every 12 hours scheduled, First dose on Wed04/14/21 at 0955, Indications: Deep Vein Thrombosis PreventionIndications:Deep Vein Thrombosis Prevention Given 05/09/2021 9:19 AM CRINKLING MACHINE OPERATOR 40 mg Left Lower Abdomen Given 05/08/2021 9:23 PM CRINKLING MACHINE OPERATOR 40 mg Le ft Lower Abdomen Given 05/08/2021 8:54 AM CRINKLING MACHINE OPERATOR 40 mg Ri ght Lower Abdomen furosemide (LASIX) 10 mg/mL injection 20 mg 20 mg, intravenous, Once, On 05/04/21 at 1400, For 1 dose, For IV push: administer doses < 160 mg at a rate of 20 -40 mg/min. Doses >/= 160 mg should be administered no faster than 4 mg/min. Room temperature only Given 05/04/2021 1:38 PM CRINKLING MACHINE OPERATOR 20 mg glucagon injection 1 mg 1 mg, intramuscular, Every 30 min PRN, low blood sugar, blood glucose less than 70 mg/dL AND no IV access AND unable to take PO glucose/juice., Starting on Martha 04/17/21 at 0829, After Glucagon is administered, position patient on side if possible to avoid aspiration. Obtain IV access. Follow glucagon treatment with glucose treatment or IV dextrose. After treatment for hypoglycemia, recheck BG followed by treatment every 15 minutes until the BG is greater than 100 mg/dL. Then check BG 1 hour post treatment. If BG is less than 100 mg/dL, repeat Q15 minute BG checks and treatment. Call MD for each episode of hypoglycemia. Reconstitute 1 mg vial with 1 mL SWFI. Use immediately following reconstitution. guaiFENesin-dextromethorphan ER (MUCINEX DM) 600-30 mg per 12 hour tablet 1 tablet 1 tablet, oral, 2 times daily, First dose on Wed05/06/21 at 2100 Given 05/09/2021 9:19 AM CRINKLING MACHINE OPERATOR 1 tablet Given 05/08/2021 9:24 PM CRINKLING MACHINE OPERATOR 1 tablet Given 05/08/2021 8:54 AM CRINKLING MACHINE OPERATOR 1 tablet HYDROcodone-homatropine (HYCODAN) 1-0.3 mg/mL syrup 5 mL 5 mL, oral, Every 4 hours PRN, cough, Starting on Wed05/06/21 at 1521 Given 05/06/2021 4:41 PM CRINKLING MACHINE OPERATOR 5 mL hydrOXYzine (ATARAX) tablet 25 mg 25 mg, oral, 4 times daily PRN, anxiety, Starting on Wed04/17/21 at 0146 Given 05/03/2021 8:06 AM CDT 25 mg Given 04/19/2021 1:06 AM CDT 25 mg Given 04/17/2021 10:45 PM CDT 25 mg insulin glargine (LANTUS, SEMGLEE) 100 unit/mL injection 10 Units 10 Units, subcutaneous, Nightly, First dose on Wed04/17/21 at 2100, Do not mix with other insulins Given 05/08/2021 9:24 PM CRINKLING MACHINE OPERATOR 10 Units Left Lower Abdomen Given 05/07/2021 9:06 PM CRINKLING MACHINE OPERATOR 10 Units Le ft Lower Abdomen Given 05/06/2021 9:05 PM CRINKLING MACHINE OPERATOR 10 Units Le ft Upper Abdomen insulin lispro (HumaLOG, ADMELOG) 100 unit/mL injection 0-4 Units 0-4 Units, subcutaneous, Nightly, First dose on Wed04/17/21 at 2100, Blood glucose mg/dL: 199 or less: No insulin 200-249: add 1 unit 250-299: add 2 units 300-349: add 3 units and notify physician for adjustment of insulin orders. 350-399: add 4 units and notify physician for adjustment of insulin orders. Over 400: Notify physician for adjustment of insulin orders. Do NOT hold for NPO Status, Indications: Diabetes MellitusIndications:Diabetes Mellitus Given 05/08/2021 9:23 PM CRINKLING MACHINE OPERATOR 1 Units Left Lower Abdomen Given 05/07/2021 9:06 PM CRINKLING MACHINE OPERATOR 1 Units Le ft Lower Abdomen Given 05/05/2021 8:38 PM CRINKLING MACHINE OPERATOR 2 Units Ri ght Upper Abdomen insulin lispro (HumaLOG, ADMELOG) 100 unit/mL injection 0-5 Units 0-5 Units, subcutaneous, 3 times daily with meals, First dose on Wed04/17/21 at 1200, Blood glucose mg/dL: 149 or less: No insulin 150-199: add 1 unit 200-249: add 2 units 250-299: add 3 units 300-349: add 4 units and notify physician for adjustment of insulin orders. 350-399: add 5 units and notify physician for adjustment of insulin orders. Over 400: Notify physician for adjustment of insulin orders. Do NOT hold for NPO Status, Indications: Diabetes MellitusIndications:Diabetes Mellitus Given 05/09/2021 5:38 PM CRINKLING MACHINE OPERATOR 1 Units Right Upper Arm Given 05/09/2021 12:42 PM CRINKLING MACHINE OPERATOR 1 Units L eft Upper Arm Given 05/08/2021 7:11 PM CRINKLING MACHINE OPERATOR 1 Units Le ft Upper Arm insulin lispro (HumaLOG, ADMELOG) 100 unit/mL injection 4 Units 4 Units, subcutaneous, 3 times daily with meals, First dose on Wed04/17/21 at 1915 Given 05/09/2021 5:36 PM CRINKLING MACHINE OPERATOR 4 Units Right Upper Arm Given 05/09/2021 12:42 PM CRINKLING MACHINE OPERATOR 4 Units L eft Upper Arm Given 05/09/2021 7:52 AM CRINKLING MACHINE OPERATOR 4 Units Le ft Upper Arm ioversoL (OPTIRAY 350) syringe syringe 100 mL 100 mL, intravenous, Once in imaging, contrast, Starting on Wed04/14/21 at 0437, For 1 dose Contrast Given 04/14/2021 4:48 AM CDT 100 mL Right Antecubital levothyroxine (SYNTHROID) tablet 75 mcg 75 mcg, oral, Daily (early AM), First dose on Wed04/15/21 at 0600, Administer on an empty stomach, preferably 30 minutes before breakfast. Take 4 hours apart from antacids, iron and calcium products. Given 05/09/2021 6:35 AM CRINKLING MACHINE OPERATOR 75 mcg Given 05/08/2021 6:11 AM CRINKLING MACHINE OPERATOR 75 mcg Given 05/07/2021 6:24 AM CRINKLING MACHINE OPERATOR 75 mcg methylPREDNISolone sodium succinate (SOLU-medrol) preservative free injection 125 mg 125 mg, intravenous, Administer over 3 Minutes, Once, On Wed04/14/21 at 0152, For 1 dose Given 04/14/2021 1:58 AM CDT 125 mg methylPREDNISolone sodium succinate (SOLU-medrol) preservative free injection 40 mg 40 mg, intravenous, Administer over 3 Minutes, Every 6 hours scheduled, First dose on Wed04/14/21 at 1200, Administer 125 mg or less over 3 minutes Given 04/14/2021 11:34 AM CDT 40 mg ondansetron (ZOFRAN) injection 4 mg 4 mg, intravenous, Administer over 2 Minutes, Every 6 hours PRN, nausea, vomiting, if not tolerating PO, Starting on Wed04/14/21 at 0954, Indications: Nausea and VomitingIndications:Nausea and Vomiting Given 04/15/2021 10:32 PM CDT 4 mg Given 04/15/2021 11:07 AM CDT 4 mg ondansetron ODT (ZOFRAN-ODT) disintegrating tablet 4 mg 4 mg, oral, Every 6 hours PRN, nausea, vomiting, Starting on Wed04/14/21 at 0954, Indications: Nausea and VomitingIndications:Nausea and Vomiting pantoprazole DR (PROTONIX) extended release tablet 40 mg 40 mg, oral, Daily, First dose on Wed04/14/21 at 1600, Do not crush, chew, cut, dissolve, open or otherwise manipulate tablet/capsule., Indications: Stress Ulcer ProphylaxisIndications:Stress Ulcer Prophylaxis Given 05/09/2021 9:19 AM CRINKLING MACHINE OPERATOR 40 mg Given 05/08/2021 8:54 AM CRINKLING MACHINE OPERATOR 40 mg Given 05/07/2021 8:48 AM CRINKLING MACHINE OPERATOR 40 mg penicillin v potassium (VEETID) tablet 500 mg 500 mg, oral, 2 times daily, First dose on Wed04/14/21 at 0955, For 4 days, Administer on an empty stomach, Indications: Upper Respiratory/HEENT InfectionIndications:Upper Respiratory/HEENT Infection Given 04/17/2021 8:36 PM CDT 500 mg Given 04/17/2021 9:56 AM CDT 500 mg Given 04/16/2021 8:37 PM CDT 500 mg remdesivir (VEKLURY) 100 mg in sodium chloride 0.9% 250 mL IVPB 100 mg, intravenous, at 270 mL/hr, Administer over 60 Minutes, Every 24 hours, First dose on Wed04/15/21 at 1400, For 4 doses, Do not shake or tube., [facility] appropriate use criteria for remdesivir are limited to the following below options. It is recommended that therapy for infections outside of these indications be discussed with infectious diseases, if available. Laboratory- confirmed severe and/or critical COVID-19, Indications: COVID-19Indications:COVID-19 New Bag 04/18/2021 2:38 PM CDT 100 mg 27 0 mL/hr New 04/17/2021 2:27 PM CDT 100 mg 270 mL/hr New 04/16/2021 2:38 PM CDT 100 mg 270 mL/hr remdesivir (VEKLURY) 200 mg in sodium chloride 0.9% 250 mL IVPB 200 mg, intravenous, at 290 mL/hr, Administer over 60 Minutes, Every 24 hours, First dose on Wed04/14/21 at 1400, For 1 dose, Do not shake or tube., [facility] appropriate use criteria for remdesivir are limited to the following below options. It is recommended that therapy for infections outside of these indications be discussed with infectious diseases, if available. Laboratory- confirmed severe and/or critical COVID-19, Indications: COVID-19Indications:COVID-19 New 04/14/2021 3:11 PM CDT 200 mg 29 0 mL/hr sodium chloride (OCEAN) 0.65 % nasal spray 2 spray 2 spray, each nostril, Every 2 hours PRN, congestion, Starting on Wed04/22/21 at 0958 Given 05/03/2021 8:47 PM CDT 2 sprays Given 05/02/2021 12:48 PM CDT 2 sprays sodium chloride 0.9% bolus 1,000 mL 1,000 mL, intravenous, at 1,000 mL/hr, Administer over 1 Hours, Once, On Wed04/14/21 at 0119, For 1 dose New 04/14/2021 1:58 AM CDT 1,000 mL 1000 mL/hr sodium chloride 0.9% infusion 100 mL/hr, intravenous, Continuous, Starting on Wed04/14/21 at 1600, For 2 days New 04/15/2021 1:25 PM CDT 100 mL/hr 10 0 mL/hr New 04/15/2021 3:56 AM CDT 100 mL/hr 100 mL/hr New Bag 04/14/2021 4:14 PM CDT 100 mL/hr 100 mL/hr traZODone (DESYREL) tablet 50 mg 50 mg, oral, Nightly PRN, sleep, Starting on Martha 04/17/21 at 0146 Given 04/23/2021 9:04 PM CDT 50 mg Given 04/20/2021 9:52 PM CDT 50 mg Given 04/19/2021 1:06 AM CDT 50 mg documented in this encounter Discontinued Medications Medication Sig Discontinue Reason Start Date End Da te penicillin v potassium (VEETID) 500 mg tablet Take 500 mg by mouth 2 (two) times a day Stop Taking at Discharge 04/08/2021 05/09/2021 documented as of this encounter Historical Medications * This list may reflect changes made after this encounter. levothyroxine (SYNTHROID) 75 mcg tablet 02/05/2021 penicillin v potassium (VEETID) 500 mg tablet Take 500 mg by mouth 2 (two) times a day 04/08/2021 05/09/2021 added in this encounter Active and Recently Administered Medications Times are shown in CRINKLING MACHINE OPERATOR. Scheduled Medication Order 05/07/2021 05/08/2021 05/09/2021 cetirizine (ZyrTEC) tablet 10 mg 10 mg, oral, Daily, First dose on Wed04/16/21 at 1130 0848 (Given - Provider: Lynne Sullivan RN) 0854 (Given - Provider: Patricia Cameron RN) 0919 (Given - Provider: Patricia Cameron RN) enoxaparin (LOVENOX) syringe 40 mg 40 mg, subcutaneous, Every 12 hours scheduled, First dose on 04/14/21 at 0955, Indications: Deep Vein Thrombosis Prevention 0848 (Given - Provider: Lynen Sullivan RN)7 (Given - Provider: Cassy Earl RN) 0854 (Given - Provider: Patricia Cameron RN)2123 (Given - Provider: Reg Aaron RN) 0919 (Given - Provider: Patricia Cameron RN) guaiFENesin-dextrometh orphan ER (MUCINEX DM) 600-30 mg per 12 hour tablet 1 tablet 1 tablet, oral, 2 times daily, First dose on Wed05/06/21 at 2100 0848 (Given - Provider: Lynne Sullivan RN)2105 (Given - Provider: Cassy Earl RN) 0854 (Given - Provider: Patricia Cameron, NEETU)2123 (Given - Provider: Reg Aaron, NEETU) 09 (Given - Provider: Patricia Cameron, NEETU) insulin glargine (LANTUS, SEMGLEE) 100 unit/mL injection 10 Units 10 Units, subcutaneous, Nightly, First dose on Wed04/17/21 at 2100, Do not mix with other insulins 2105 (Given - Provider: Cassy Earl RN) 2123 (Given - Provider: Reg Aaron, NEETU) insulin lispro (HumaLOG, ADMELOG) 100 unit/mL injection 0-4 Units 0-4 Units, subcutaneous, Nightly, First dose on Wed04/17/21 at 2100, Blood glucose mg/dL: 199 or less: No insulin 200-249: add 1 unit 250-299: add 2 units 300-349: add 3 units and notify physician for adjustment of insulin orders. 350-399: add 4 units and notify physician for adjustment of insulin orders. Over 400: Notify physician for adjustment of insulin orders. Do NOT hold for NPO Status, Indications: Diabetes Mellitus 2105 (Given - Provider: Cassy Earl RN) 2122 (Given - Provider: Reg Aaron, NEETU) insulin lispro (HumaLOG, ADMELOG) 100 unit/mL injection 0-5 Units 0-5 Units, subcutaneous, 3 times daily with meals, First dose on Wed04/17/21 at 1200, Blood glucose mg/dL: 149 or less: No insulin 150-199: add 1 unit 200-249: add 2 units 250-299: add 3 units 300-349: add 4 units and notify physician for adjustment of insulin orders. 350-399: add 5 units and notify physician for adjustment of insulin orders. Over 400: Notify physician for adjustment of insulin orders. Do NOT hold for NPO Status, Indications: Diabetes Mellitus 0850 (Not Given - Provider: Lynne Sullivan RN - Reason: Order parameters not met - Comment: [phone] (Given - Provider: Lynne Sullivan RN - Comment: [phone] (Given - Provider: Lynne Sullivan RN) 0613 (Not Given - Provider: Cassy Earl RN - Reason: Order parameters not met)1237 (Given - Provider: Patricia Cameron RN)1911 (Given - Provider: Patricia Cameron RN) 0756 (Not Given - Provider: Patricia Cameron RN - Reason: Order parameters not met)1242 (Given - Provider: Patricia Cameron RN)1738 (Given - Provider: Patricia Cameron RN) insulin lispro (HumaLOG, ADMELOG) 100 unit/mL injection 4 Units 4 Units, subcutaneous, 3 times daily with meals, First dose on Wed04/17/21 at 1915 0849 (Not Given - Provider: Lynne Sullivan RN - Reason: Order parameters not met)1218 (Given - Provider: Lynne Sullivan RN)1734 (Given - Provider: Lynne Sullivan RN) 0645 (Given - Provider: Cassy Earl RN)1235 (Given - Provider: Patricia Cameron RN)1909 (Given - Provider: Patricia Cameron RN) 0752 (Given - Provider: Patricia Cameron RN)1242 (Given - Provider: Patricia Cameron RN)1736 (Given - Provider: Patricia Cameron RN) levothyroxine (SYNTHROID) tablet 75 mcg 75 mcg, oral, Daily (early AM), First dose on Wed04/15/21 at 0600, Administer on an empty stomach, preferably 30 minutes before breakfast. Take 4 hours apart from antacids, iron and calcium products. 0624 (Given - Provider: Socorro Soni RN) 0611 (Given - Provider: Cassy Earl, NEETU) 0635 (Given - Provider: Reg Aaron RN) pantoprazole DR (PROTONIX) extended release tablet 40 mg 40 mg, oral, Daily, First dose on Wed04/14/21 at 1600, Do not crush, chew, cut, dissolve, open or otherwise manipulate tablet/capsule., Indications: Stress Ulcer Prophylaxis 0848 (Given - Provider: Lynne Sullivan, NEETU) 0854 (Given - Provider: Patricia Cameron, NEETU) 0919 (Given - Provider: Patricia Cameron, RN) PRN Medication Order 05/07/2021 05/08/2021 05/09/2021 acetaminophen (TYLENOL) tablet 650 mg 650 mg, oral, Every 4 hours PRN, headaches, fever, Starting on Wed04/29/21 at 0408 0611 (Given - Provider: Cassy Earl, NEETU) 0924 (Given - Provider: Patricia Cameron, NEETU) benzocaine-menthoL (CEPACOL) lozenge 1 lozenge 1 lozenge, mouth/throat, Every 2 hours PRN, sore throat, Starting on Wed04/14/21 at 1523 1146 (Given - Provider: Patricia Cameron, NEETU) 0924 (Given - Provider: Patricia Cameron, NEETU) benzonatate (TESSALON) capsule 100 mg 100 mg, oral, 3 times daily PRN, cough, Starting on Wed05/01/21 at 0942, Do not crush, chew, cut, dissolve, open or otherwise manipulate tablet/capsule., Indications: Cough 0611 (Given - Provider: Cassy Earl RN) dextrose (D10W) 10% bolus 250 mL(Linked Group 1) 250 mL, intravenous, at 1,000 mL/hr, Administer over 15 Minutes, Every 15 min PRN, blood glucose less than 70 mg/dL and UNABLE to swallow/take PO glucose/juice., Starting on Wed04/17/21 at 0829, After treatment for hypoglycemia, recheck BG followed by treatment every 15 minutes until the BG is greater than 100 mg/dL. Then check BG 1 hour post treatment. If BG is less than 100 mg/dL, repeat Q15 minute BG checks and treatment. Call MD for each episode of hypoglycemia., Indications: hypoglycemic disorder dextrose oral liquid liquid 15 g(Linked Group 1) 15 g, oral, Every 15 min PRN, low blood sugar, blood glucose less than 70 mg/dL, Starting on Wed04/17/21 at 0829, If patient is alert and able to eat/drink, give 15 gm glucose or one juice (4 fluid ounces) NOT ORANGE JUICE. After treatment for hypoglycemia, recheck BG followed by treatment every 15 minutes until the BG is greater than 100 mg/dL. Then check BG 1 hour post-treatment. If BG is less than 100 mg/dL, repeat Q15 minute BG checks and treatment. Call MD for each episode of hypoglycemia., Indications: hypoglycemic disorder glucagon injection 1 mg 1 mg, intramuscular, Every 30 min PRN, low blood sugar, blood glucose less than 70 mg/dL AND no IV access AND unable to take PO glucose/juice., Starting on Wed04/17/21 at 0829, After Glucagon is administered, position patient on side if possible to avoid aspiration. Obtain IV access. Follow glucagon treatment with glucose treatment or IV dextrose. After treatment for hypoglycemia, recheck BG followed by treatment every 15 minutes until the BG is greater than 100 mg/dL. Then check BG 1 hour post treatment. If BG is less than 100 mg/dL, repeat Q15 minute BG checks and treatment. Call MD for each episode of hypoglycemia. Reconstitute 1 mg vial with 1 mL SWFI. Use immediately following reconstitution. HYDROcodone-homatropine (HYCODAN) 1-0.3 mg/mL syrup 5 mL 5 mL, oral, Every 4 hours PRN, cough, Starting on Wed05/06/21 at 1521 hydrOXYzine (ATARAX) tablet 25 mg 25 mg, oral, 4 times daily PRN, anxiety, Starting on Wed04/17/21 at 0146 ondansetron (ZOFRAN) injection 4 mg(Linked Group 2) 4 mg, intravenous, Administer over 2 Minutes, Every 6 hours PRN, nausea, vomiting, if not tolerating PO, Starting on Wed04/14/21 at 0954, Indications: Nausea and Vomiting ondansetron ODT (ZOFRAN-ODT) disintegrating tablet 4 mg(Linked Group 2) 4 mg, oral, Every 6 hours PRN, nausea, vomiting, Starting on Wed04/14/21 at 0954, Indications: Nausea and Vomiting sodium chloride (OCEAN) 0.65 % nasal spray 2 spray 2 spray, each nostril, Every 2 hours PRN, congestion, Starting on Wed04/22/21 at 0958 traZODone (DESYREL) tablet 50 mg 50 mg, oral, Nightly PRN, sleep, Starting on Wed04/17/21 at 0146 Linked Groups Order Group 1: dextrose oral liquid liquid 15 gJump to med 15 g, oral, Every 15 min PRN, low blood sugar, blood glucose less than 70 mg/dL, Starting on Wed04/17/21 at 0829, If patient is alert and able to eat/drink, give 15 gm glucose or one juice (4 fluid ounces) NOT ORANGE JUICE. After treatment for hypoglycemia, recheck BG followed by treatment every 15 minutes until the BG is greater than 100 mg/dL. Then check BG 1 hour post-treatment. If BG is less than 100 mg/dL, repeat Q15 minute BG checks and treatment. Call MD for each episode of hypoglycemia., Indications: hypoglycemic disorder Or dextrose (D10W) 10% bolus 250 mLJump to med 250 mL, intravenous, at 1,000 mL/hr, Administer over 15 Minutes, Every 15 min PRN, blood glucose less than 70 mg/dL and UNABLE to swallow/take PO glucose/juice., Starting on Wed04/17/21 at 0829, After treatment for hypoglycemia, recheck BG followed by treatment every 15 minutes until the BG is greater than 100 mg/dL. Then check BG 1 hour post treatment. If BG is less than 100 mg/dL, repeat Q15 minute BG checks and treatment. Call MD for each episode of hypoglycemia., Indications: hypoglycemic disorder Group 2: ondansetron ODT (ZOFRAN-ODT) disintegrating tablet 4 mgJump to med 4 mg, oral, Every 6 hours PRN, nausea, vomiting, Starting on Wed04/14/21 at 0954, Indications: Nausea and Vomiting Or ondansetron (ZOFRAN) injection 4 mgJump to med 4 mg, intravenous, Administer over 2 Minutes, Every 6 hours PRN, nausea, vomiting, if not tolerating PO, Starting on Wed04/14/21 at 0954, Indications: Nausea and Vomiting documented in this encounter Orders Medications Ordered That Peng ht Not Have Been Administered Count Last Ordered Date First Ordered Date dextrose (D10W) 10% bolus 250 mL 1 04/17/20 dextrose oral liquid liquid 15 g 1 04/17/20 glucagon injection 1 mg 1 04/17/2021 insulin glargine (LANTUS, SE MGLEE) 100 unit/mL injection 20 Units 1 04/17/2021 insulin lispro (HumaLOG, ADM ELOG) 100 unit/mL injection 5 Units 1 04/17/2021 insulin lispro (HumaLOG, ADM ELOG) 100 unit/mL injection 7 Units 1 04/17/2021 ondansetron ODT (ZOFRAN-ODT) disintegrating tablet 4 mg 1 04/14/2021 Lab Orders Without Results Count Last Ordered D ate First Ordered Date POCT GLUCOSE DEVICE 83 05/09/2021 04/17/20 Imaging Orders Without Results Count Last Order ed Date First Ordered Date HOME O2 EVAL (DESATURATION SCREEN) 1 2020 General Supply Count Last Ordered Date First Or dered Date OXYGEN 1 05/09/2021 Diet Count Last Ordered Date First Orde red Date ADULT DISCHARGE DIET 1 05/09/2021 Nursing Count Last Ordered Date First Orde red Date DISCHARGE ACTIVITY 1 05/09/2021 DISCHARGE CALL PROVIDER 8 05/09/2021 DISCHARGE INSTRUCTIONS 2 05/09/2021 FOLLOW UP WITH ESTABLISHED PROVIDER 2 05/09 WEIGH PATIENT 1 04/24/2021 ACTIVITY 1 04/14/2021 CARDIO RESPIRATORY MONITORING 1 04/14/2021 CONTINUOUS PULSE OXIMETRY 1 04/14/2021 Consult Count Last Ordered Date First Orde red Date IP CONSULT TO PULMONOLOGY 1 04/14/2021 Transfer Count Last Ordered Date First Orde red Date TRANSFER PATIENT 2 05/01/2021 04/15/2021 ADT Patient Update Count Last Ordered Date Firs t Ordered Date ED IP DECISION TO ADMIT 1 04/14/2021 documented in this encounter Additional Health Concerns Infection Onset Date Last Indicated Resolved Time COVID19 Comment:+04/08/21 Tested @ [facility]. NEETU Bauer IP 04/08/2021 04/14/2021 05/25/2021 3:[address] documented as of this encounter Care Teams Panel Assembler Relationship Specialty Start Date End Date Noris Bob MD [address] [place] [id number] PCP - General 04/14/21 Miscellaneous, Not In File 05/09/[address] [place] [address] [facility] [address] [place] [address] Consulting Physician Pulmonary Disease 05/09/21 documented as of this encounter
--- OUTSIDE RECORDS SUMMARY | 2024-06-26 02:27 | XMS_ITS | Encounter Summary ---
Author Organization [facility] Healthcare Address [address] [place] [address] Care Team Providers Care Circuit Design Engineer Name Role Phone Jeremias Obando DO Primary Care Provider [phone] Encounter Details Date Type Department Care Team (Late st Contact Info) Description 01/13/2016 9:08 AM CDT - 01/13/2016 11:59 PM CDT Hospital Encounter [facility] Ragini Cline MD [address] [facility] [address] [place] [id number] Social History Tobacco Use Types Packs/Day Years Used Date Smoking Tobacco: Never Assessed Alcohol Use Standard Drinks/Week Comments No 0 (1 standard drink = 0.6 oz pur e alcohol) Comments Unknown Sex and Gender Information Value Date Recorded Sex Assigned at Not on file 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
--- OUTSIDE RECORDS SUMMARY | 2024-06-26 02:27 | XMS_ITS | Encounter Summary ---
Author Organization [facility] Healthcare Address [address] [place] [address] Care Team Providers Care Semiconductor Processing Group Leader Name Role Phone Suadkal Jeremias Liaoony Primary Care Provider +1- [phone] Encounter Details Date Type Department Care Team (Latest Contact Info) Description 03/10/2016 5:44 AM CDT - 03/14/2016 10:35 AM CDT Hospital Encounter [facility] Ragini Cline MD [address] [place] [id number] Severe pre-eclampsia in third trimester; Body mass index (BMI) of 45.0-49.9 in adult (CMS/HCC); Thrombocytopenia (CMS/HCC); Gestational diabetes mellitus in childbirth; Morbid (severe) obesity due to excess calories (HCC); Endocrine, nutritional and metabolic diseases complicating childbirth; Hypothyroidism; Supervision of elderly primigravida in third trimester; Anemia; Leiomyoma of uterus; Single live ; 37 weeks gestation of ; Encounter for immunization Social History Tobacco Use Types Packs/Day Years Used Date Smoking Tobacco: Never Assessed Alcohol Use Standard Drinks/Week Comments No 0 (1 standard drink = 0.6 oz pur e alcohol) Comments Unknown Sex and Gender Information Value Date Recorded Sex Assigned at Not on file 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 Gender Identity Not on file Sexual Orientation Not on file documented as of this encounter Last Filed Vital Signs Vital Sign Reading Time Taken Comments Blood Pressure - - Pulse - - Temperature - - Respiratory Rate - - Oxygen Saturation - - Inhaled Oxygen Concentration - - Weight 138.8 kg (305 lb 15.9 oz) 03/11/2016 3:52 PM CDT Height 172.7 cm (5' 7.99 ) 03/11/2016 3:52 PM CD T Body Mass Index 46.54 03/11/2016 3:52 PM CDT documented in this encounter H&P Notes * ProviderLudwin MD - 03/10/2016 12:00 AM CDT HISTORY AND PHYSICAL Patient: SHAINA LONG Account: [id number] Room No: 179-A : 1975 Patient Type: IP Attend.: Ragini Navas M.D. Admit Date: 03/10/2016 Dict.: Ragini Navas M.D. Disch. Date: Shaina is 41 years old G1 at 37 weeks and 3 days gestation being admitted for delivery due to severe preeclampsia based on blood pressure and 24-hour urine, and a slightly low platelet count. Her has been complicated by elevated blood pressure off and on since about 26 weeks, gestational diabetes for which she is on metformin, and advanced maternal age. She is feeling normal movement, occasional contractions. No vaginal bleeding and no leakage of fluid. She has a slight headache but denies visual changes. MEDICAL HISTORY Hypothyroidism. CURRENT MEDICATIONS 1. Levothyroxine 25 mcg daily. 2. Metformin 1000 mg twice daily. 3. vitamin. No known drug allergies. SURGICAL HISTORY Negative. SOCIAL HISTORY Negative for tobacco, alcohol, or drug use. 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 REVIEW OF SYSTEMS Negative. PHYSICAL EXAM Her weight is 306, blood pressure most recently in the office was 122/78, but the time prior to that was 170/90. Generally: No apparent distress. Heart: Regular rate and rhythm. Lungs: Clear to auscultation. Abdomen: Gravid, soft, nontender, nondistended. Estimated weight 8 pounds 13 ounces based on an ultrasound done on March 05. Extremities: Nontender with 1+ edema. Cervix on March 09 was a tight 1 cm, 20% effaced, -3 station, soft and posterior. RECENT LABORATORY WORKUP A 24 hour urine protein 2145 mg of protein, normal AST, normal creatinine level. Her hemoglobin is 12.3, hematocrit 36.6, and platelet count 107. ASSESSMENT AND PLAN 1. Severe preeclampsia based on 24-hour urine, elevated blood pressure, and low platelets. She was recommended to proceed with delivery and due to her multiple risk factors for including morbid obesity, unfavorable cervix, preeclampsia, and gestational diabetes with suspected macrosomia, she was offered primary versus induction of labor knowing that she would have a significant chance of , given her risk factors. Due to the urgent need for delivery, she opted to go ahead and proceed with primary . For delivery, we will recheck her CBC including platelets, AST, and creatinine level on admission. Plan to give magnesium prior to delivery as well as 24 hours , and watch her blood pressures carefully. 2. status is reassuring. 3. Gestational diabetes. She has been controlled with metformin 1000 mg twice daily. So plan is to check her blood sugar prior to delivery and she will need a repeat glucose tolerance test 6 weeks after delivery. 4. Hypothyroidism, stable. Will plan to continue her current dose of thyroid medication and recheck her levels a few weeks after delivery. 5. Group B streptococcus is negative. Electronically Authenticated by: Ragini Navas MD On 03/10/2016 09:23 AM CDT Ragini Navas M.D. [place] TD: 03/09/2016 16:01 documented in this encounter Miscellaneous Notes * Op Note - Provider, MD Ludwin - 03/10/2016 12:00 AM CDT OPERATIVE REPORT Patient: SHAINA LONG Service Date: 03/10/2016 Account: [id number] Room No: 179-A : 1975 Patient Type: IP Attend.: Ragini Navas M.D. Admit Date: 03/10/2016 Surg.: Ragini Navas M.D. Disch. Date: SURGEON Ragini Navas MD PREOPERATIVE DIAGNOSES Intrauterine at 37 weeks and 3 days with severe preeclampsia, gestational diabetes type A2, suspected macrosomia, unfavorable cervix, morbid obesity. POSTOPERATIVE DIAGNOSES Intrauterine at 37 weeks and 3 days with severe preeclampsia, gestational diabetes type A2, suspected macrosomia, unfavorable cervix, morbid obesity. PROCEDURE PERFORMED Primary low transverse section via Pfannenstiel. ANESTHESIA Spinal. ESTIMATED BLOOD LOSS 1100 mL. COMPLICATIONS None. FINDINGS Male in cephalic presentation. Apgars 8 and 9. Weight 7 pounds, 14 ounces. Normal tubes and ovaries. Uterus with several small fibroids, all less than 1 cm. INDICATIONS A 41-year-old, G1 at 37 weeks and 3 days was diagnosed yesterday with severe preeclampsia based on elevated blood pressure, 24 hour urine protein, and decreased platelets. So she was advised to proceed with delivery. When we discussed options and her multiple risk factors for , she opted for a primary after the risks, benefits, complications, and alternatives were discussed. PROCEDURE She was taken to the Operating Room where spinal anesthesia was obtained, and found to be adequate. She was prepared and draped in the normal sterile fashion in the dorsal supine position with a leftward tilt. A high Pfannenstiel skin incision was made with a scalpel, so it was not underneath her pannus and this was extended to the underlying layer of fascia with the Bovie. The fascia was incised in the midline, extended laterally with the Michelle scissors. The underlying rectus muscles were dissected off bluntly and sharply, and in the midline. The peritoneum was entered sharply and extended inferiorly and superiorly with good visualization of the bladder. The bladder blade was inserted and the vesicouterine peritoneum was tented up with the Metzenbaum scissors and entered sharply, and extended laterally. The bladder flap was then created sharply. A bladder blade was reinserted and the lower uterine segment was incised in a transverse fashion with the scalpel. The incision was visually stretched in a cephalocaudal direction. Clear fluid was noted. The 's head was delivered atraumatically and bulb suctioned. The shoulders and body were delivered easily. The cord was clamped x2 and cut, and the was passed to the waiting nurse. Cord blood was obtained. The placenta was manually extracted. The uterus was exteriorized and cleared of all clots and debris. The uterine incision was closed using 0 Vicryl in a running, locked fashion. There were a couple of bleeding points along the uterine incision which was controlled easily using 0 Vicryl [id number] sutures. The uterus was then returned to the abdomen. The gutters were cleared of all clots and debris. The uterine incision was reinspected and found to be hemostatic. The rectus muscles were inspected and any bleeding points were cauterized. The fascia was then closed using 0 Vicryl in a running fashion. The subcutaneous tissue was then irrigated. Any bleeding points were cauterized. The subcutaneous tissue was reapproximated using 2-0 Vicryl [id number] sutures, 2 layers of those sutures were used for reapproximation, and then the skin was closed using darius. She tolerated the procedure well. Sponge, lap, needle, and instrument counts were correct x2, and she was taken to the recovery room in stable condition. Electronically Authenticated by: Ragini Navas MD On 03/12/2016 12:49 PM CDT Ragini Navas M.D. [place] TD: 03/10/2016 10:41 documented in this encounter Plan of Treatment Not on file documented as of this encounter Procedures Procedure Name Priority Date/Time Associated Diagnosis Comments DISCHARGE LABORATORY CUMULATIVE REPORT 03/14/2016 BLOOD GLUCOSE, POC Routine 03/11/2016 8: 51 AM CDT BLOOD CELL COUNT (CBC) Routine 03/11/2016 5:08 AM CDT BLOOD CELL MORPHOLOGIC EXAM Routine 03/11/2016 5:08 AM CDT BLOOD GLUCOSE, POC Routine 03/10/2016 6: 49 AM CDT URINE MICROSCOPY Routine 03/10/2016 6:20 AM CDT SERUM ESTIMATED GLOMERULAR FILTRATION RATE Routine 03/10/2016 6:03 AM CDT SERUM CREATININE Routine 03/10/2016 6:03 AM CDT SERUM ASPARTATE TRANSAMINASE (AST) Routine 03/10/2016 6:03 AM CDT PLASMA URIC ACID Routine 03/10/2016 6:03 AM CDT BLOOD INDIRECT ANTIGLOBULIN TEST Routine 03/10/2016 6:03 AM CDT BLOOD ABO, RH Routine 03/10/2016 6:03 AM CDT BLOOD CELL COUNT (CBC) Routine 03/10/2016 6:03 AM CDT BLOOD CELL MORPHOLOGIC EXAM Routine 03/10/2016 6:03 AM CDT URINALYSIS Routine 03/10/2016 1:20 AM CDT SURGICAL PATHOLOGY 03/10/2016 documented in this encounter Results * DISCHARGE LABORATORY CUMULATIVE REPORT (03/14/2016) Narrative 03/14/2016 Ordered by an unspecified provider. Historical Provider LAB BLOOD ORDERABLES Areli l Result * (ABNORMAL) Blood glucose, POC (03/11/2016 8:51 AM CDT) Glucose, POC, bld 140(H) 71 - 98 mg/dl CDR HISTORICAL RESULTS Blood specimen (specimen) 03/11/2016 8:51 AM CDT Historical Provider LAB BLOOD ORDERABLES Areli l Result CDR HISTORICAL RESULTS * (ABNORMAL) Blood cell count (CBC) (03/11/2016 5:08 AM CDT) WBC 17.7(H) 3.8 - 9.8 K/cumm CDR HISTORICAL RESULTS RBC 2.52(L) 3.90 - 5.00 M/cumm CDR HISTORICAL RESULTS Hgb 8.3(L) 12.1 - 15.1 g/dl CDR HISTORICAL RESULTS Hct 24.5(L) 36.1 - 44.3 % CDR HISTORICAL RESULTS MCV 97.2 80.0 - 100.0 fl CDR HISTORICAL RESULTS MCH 32.9 26.7 - 33.7 pg CDR HISTORICAL RESULTS MCHC 33.9 32.7 - 36.0 g/dl CDR HISTORICAL RESULTS Rdw 13.6 11.5 - 14.6 % CDR HISTORICAL RESULTS Platelets 111(L) 140 - 440 K/cumm CDR HISTORICAL RESULTS MPV 14.2(H) 8.0 - 12.0 fl CDR HISTORICAL RESULTS NRBC 0.0 0.0 - 0.0 % CDR HIST ORICAL RESULTS NRBC, abs 0.00 0.00 - 0.00 K/cumm CDR HISTORICAL RESULTS Blood specimen (specimen) 03/11/2016 5:08 AM CDT us Historical Provider LAB BLOOD ORDERABLES Areli tomlinson Result CDR HISTORICAL RESULTS * (ABNORMAL) Blood cell morphologic exam (03/11/2016 5:08 AM CDT) Neutrophils 83.3(H) 44.0 - 80.0 % CDR HISTORICAL RESULTS Immature granulocytes 0.4 0.0 - 1.0 % CDR HISTORICAL RESULTS Lymphocytes 11.8(L) 13.0 - 44.0 % CDR HISTORICAL RESULTS Monos 4.0 2.0 - 11.0 % CDR HISTORICAL RESULTS Eosinophils 0.2 0.0 - 6.0 % CDR HISTORICAL RESULTS Basophils 0.3 0.0 - 3.0 % CDR HISTORICAL RESULTS Neutrophils, abs 14.8(H) 1.6 - 7.0 K/cumm CDR HISTORICAL RESULTS Immature granulocyte, abs 0.1 0.0 - 0.2 K/cumm CDR HISTORICAL RESULTS Lymphocytes, abs 2.1 0.5 - 4.3 K/cumm CDR HISTORICAL RESULTS Monocytes, absolute 0.7 0.1 - 1.0 K/cumm CDR HISTORICAL RESULTS Eosinophils, abs 0.0 0.0 - 0.6 K/cumm CDR HISTORICAL RESULTS Basophils, abs 0.0 0.0 - 0.3 K/cumm CDR HISTORICAL RESULTS Blood specimen (specimen) 03/11/2016 5:08 AM CDT Result [facility] Historical Provider LAB BLOOD ORDERABLES Areli l Result Performing Organization Address [facility] Co de Phone Number CDR HISTORICAL RESULTS * Blood glucose, POC (03/10/2016 6:49 AM CDT) Glucose, POC, bld 84 71 - 98 mg/dl CDR HISTORICAL RESULTS Blood specimen (specimen) 03/10/2016 6:49 AM CDT Result [facility] Historical Provider LAB BLOOD ORDERABLES Areli l Result Performing Organization Address [facility] de Phone Number CDR HISTORICAL RESULTS * (ABNORMAL) Urine microscopy (03/10/2016 6:20 AM CDT) RBC, ur 2 - 5(A) 0 - 2 /hpf CDR HISTO RICAL RESULTS WBC, ur 5 - 10(A) 0 - 2 /hpf CDR HISTO RICAL RESULTS Bacteria, ur 2+(A) Negative CDR HIS TORICAL RESULTS Hyaline casts 2 - 5(A) 0 - 2 /lpf CDR H ISTORICAL RESULTS Epithelial cells, ur 5 - 10(A) 0 - 2 /hpf CDR HISTORICAL RESULTS Urine 03/10/2016 6:20 AM CDT Historical Provider LAB BLOOD ORDERABLES Areli l Result Performing Organization Address [facility] Co de Phone Number CDR HISTORICAL RESULTS * Serum aspartate transaminase (AST) (03/10/2016 6:03 AM CDT) AST 36 10 - 40 Units/L CDR HISTORICAL RESULTS Serum 03/10/2016 6:03 AM CDT Result [facility] Historical Provider LAB BLOOD ORDERABLES Areli l Result CDR HISTORICAL RESULTS * Plasma uric acid (03/10/2016 6:03 AM CDT) Uric acid 5.7 2.5 - 7.5 mg/dl CDR HISTORICAL RESULTS Plasma 03/10/2016 6:03 AM CDT Result [facility] Provider LAB BLOOD ORDERABLES Areli l Result Performing Organization Address [facility] Co de Phone Number CDR HISTORICAL RESULTS * Serum creatinine (03/10/2016 6:03 AM CDT) Pathologist [facility] Creatinine 0.63 0.60 - 1.10 mg/dl CDR HISTORICAL RESULTS Serum 03/10/2016 6:03 AM CDT Result [facility] Provider LAB BLOOD ORDERABLES Areli l Result Performing Organization Address [facility] de Phone Number CDR HISTORICAL RESULTS * (ABNORMAL) Blood cell count (CBC) (03/10/2016 6:03 AM CDT) Pathologist [facility] WBC 8.4 3.8 - 9.8 K/cumm CDR HISTORICAL RESULTS RBC 3.68(L) 3.90 - 5.00 M/cumm CDR HISTORICAL RESULTS Hgb 12.1 12.1 - 15.1 g/dl CDR HISTORICAL RESULTS Hct 35.2(L) 36.1 - 44.3 % CDR HISTORICAL RESULTS MCV 95.7 80.0 - 100.0 fl CDR HISTORICAL RESULTS MCH 32.9 26.7 - 33.7 pg CDR HISTORICAL RESULTS MCHC 34.4 32.7 - 36.0 g/dl CDR HISTORICAL RESULTS Rdw 13.2 11.5 - 14.6 % CDR HISTORICAL RESULTS Platelets 103(L) 140 - 440 K/cumm CDR HISTORICAL RESULTS MPV 14.3(H) 8.0 - 12.0 fl CDR HISTORICAL RESULTS NRBC 0.0 0.0 - 0.0 % CDR HIST ORICAL RESULTS NRBC, abs 0.00 0.00 - 0.00 K/cumm CDR HISTORICAL RESULTS Blood specimen (specimen) 03/10/2016 6:03 AM CDT [facility] Provider MD LAB BLOOD ORDERABLES Areli l Result CDR HISTORICAL RESULTS * Blood cell morphologic exam (03/10/2016 6:03 AM CDT) Neutrophils 70.0 44.0 - 80.0 % CDR HISTORICAL RESULTS Immature granulocytes 0.2 0.0 - 1.0 % CDR HISTORICAL RESULTS Lymphocytes 22.6 13.0 - 44.0 % CDR HISTORICAL RESULTS Monos 5.6 2.0 - 11.0 % CDR HISTORICAL RESULTS Eosinophils 1.1 0.0 - 6.0 % CDR HISTORICAL RESULTS Basophils 0.5 0.0 - 3.0 % CDR HISTORICAL RESULTS Neutrophils, abs 5.9 1.6 - 7.0 K/cumm CDR HISTORICAL RESULTS Immature granulocyte, abs 0.0 0.0 - 0.2 K/cumm CDR HISTORICAL RESULTS Lymphocytes, abs 1.9 0.5 - 4.3 K/cumm CDR HISTORICAL RESULTS Monocytes, absolute 0.5 0.1 - 1.0 K/cumm CDR HISTORICAL RESULTS Eosinophils, abs 0.1 0.0 - 0.6 K/cumm CDR HISTORICAL RESULTS Basophils, abs 0.0 0.0 - 0.3 K/cumm CDR HISTORICAL RESULTS Blood specimen (specimen) 03/10/2016 6:03 AM CDT us Historical Provider LAB BLOOD ORDERABLES Areli l Result CDR HISTORICAL RESULTS * Serum estimated glomerular filtration rate (03/10/2016 6:03 AM CDT) Pathologist [facility] eGFR >60 ml/min/1.7 3 m2 CDR HISTORICAL RESULTS Comment: Interpretation of Estimated GFR (eGFR): Normal ?>/= 60 mL/min/1.73m2 Possible Chronic Kidney Disease ??15 - 59 mL/min/1.73m2 Possible Kidney Failure ?< 15 ??mL/min/1.73m2 If -[place] multiply value by 1.16. ??Estimated glomerular filtration rate is determined by the CKD-EPI equation recommended by the National Kidney Foundation (KDIGO 2012 Clinical Practice Guideline for the Evaluation and Management of Chronic Kidney Disease. ??Kidney Intnl Suppl Jun 2012;3:1). ??The CKD-EPI equation should not be used in acute renal failure or acute kidney injury and is not valid in children. Serum 03/10/2016 6:03 AM CDT [facility] Provider LAB BLOOD ORDERABLES Areli l Result Performing Organization Address [facility] Co de Phone Number CDR HISTORICAL RESULTS * Blood ABO, Rh (03/10/2016 6:03 AM CDT) ABO, Rho (D) interp A Positive CDR HISTORICAL RESULTS Blood specimen (specimen) 03/10/2016 6:03 AM CDT Result [facility] Provider LAB BLOOD ORDERABLES Areli l Result Performing Organization Address [facility] Co de Phone Number CDR HISTORICAL RESULTS * Blood indirect antiglobulin test (03/10/2016 6:03 AM CDT) See, indirect Negative ABSC CDR HISTORICAL RESULTS Blood specimen (specimen) 03/10/2016 6:03 AM CDT [facility] Provider LAB BLOOD ORDERABLES Areli l Result Performing Organization Address [facility] de Phone Number CDR HISTORICAL RESULTS * (ABNORMAL) Urinalysis (03/10/2016 1:20 AM CDT) Color, ur Yellow Yellow CDR HISTOR ICAL RESULTS Clarity, ur Cloudy(A) Clear CDR HIST ORICAL RESULTS Specific gravity, ur 1.023 1.003 - 1.030 CDR HISTORICAL RESULTS Comment:Normal Ranges: 1.003 -1.030 pH, ur 6.0 4.5 - 8.0 CDR HISTOR ICAL RESULTS Comment:Normal ranges: 4.5-8 .0 Protein, ur, quant 300(A) Negative mg/dl CDR HISTORICAL RESULTS Glucose, ur, quant Negative Negative mg/dl CDR HISTORICAL RESULTS Ketones, ur 40(A) Negative CDR HIST ORICAL RESULTS Bilirubin, ur Negative Negative CDR HI STORICAL RESULTS U Blood Trace(A) Negative CDR HISTOR ICAL RESULTS Urobilinogen, quant, ur 0.2 0.2 - 1.0 Haylie Units/dl CDR HISTORICAL RESULTS Comment:Normal Ranges: 0.2-1 .0 EU/dL Nitrites, ur Negative Negative CDR HIS TORICAL RESULTS Leukocyte esterase, ur Negative Negative CDR HISTORICAL RESULTS Urine 03/10/2016 1:20 AM CDT Narrative CDR HISTORICAL RESULTS - 03/10/2016 1:40 AM CDT [facility] [facility] Historical Provider MD LAB BLOOD ORDERABLES Areli l Result CDR HISTORICAL RESULTS * Surgical pathology (03/10/2016) Narrative 03/10/2016 Ordered by an unspecified provider. [facility] Provider MD LAB PATHOLOGY ORDERABLES Final Result documented in this encounter Visit Diagnoses Diagnosis Severe pre-eclampsia in third trimester Body mass index (BMI) of 45.0-49.9 in adult (HCC) Thrombocytopenia (HCC) Unspecified thrombocytopenia Gestational diabetes mellitus in childbirth Morbid (severe) obesity due to excess calories (HCC) Endocrine, nutritional and metabolic diseases complicating childbirth Hypothyroidism Unspecified hypothyroidism Supervision of elderly primigravida in third trimester Anemia Unspecified anemia Leiomyoma of uterus Leiomyoma of uterus, unspecified Single live 37 weeks gestation of Encounter for immunization documented in this encounter Care Teams Semiconductor Processing Group Leader Relationship Specialty Start Date End Date Jeremias Obando DO [address] [facility] [place] [address] PCP - General 10/07/09 04/13/21 documented as of this encounter
--- OUTSIDE RECORDS SUMMARY | 2024-06-26 02:27 | XMS_ITS | Encounter Summary ---
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 - 07/31/2014 12:18 AM BERRY PLANTER Hospital Encounter [facility] Adrian Caldera MD [address] [place] [address] Other injury of external genitals; Open wound of vagina; Other accidents; Place of occurrence, home; Other external cause of injury or poisoning Social History Tobacco Use Types Packs/Day Years Used Date Smoking Tobacco: Never Assessed Alcohol Use Standard Drinks/Week Comments No 0 (1 standard drink = 0.6 oz pur e alcohol) Comments Unknown Sex and Gender Information Value Date Recorded Sex Assigned at Not on file 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
--- OUTSIDE RECORDS SUMMARY | 2024-06-26 02:27 | XMS_ITS | Encounter Summary ---
Author Organization [facility] Healthcare Address [address] [place] [address] Care Team Providers Care Hair Weaver Name Role Phone Jeremias Obando DO Primary Care Provider +1- [phone] Encounter Details Date Type Department Care Team (Late st Contact Info) Description 10/29/2011 11:51 AM CDT - 10/29/2011 11:59 PM CDT Hospital Encounter [facility] Disorder of kidney and ureter; Other specified abnormal findings of blood chemistry Social History Tobacco Use Types Packs/Day Years Used Date Smoking Tobacco: Never Assessed Alcohol Use Standard Drinks/Week Comments No 0 (1 standard drink = 0.6 oz pur e alcohol) Comments Unknown Sex and Gender Information Value Date Recorded Sex Assigned at Not on file 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
--- OUTSIDE RECORDS SUMMARY | 2024-06-26 02:27 | XMS_ITS | Encounter Summary ---
Author Organization [facility] Healthcare Address [address] [place] [address] Care Team Providers Care Sizer Machine Name Role Phone Suadkal Jeremias Charles Primary Care Provider +1- [phone] Encounter Details Date Type Department Care Team (Latest Contact Info) Description 03/07/2016 10:27 AM CDT - 03/07/2016 11:59 PM CDT Hospital Encounter [facility] Ragini Clien MD [address] [facility] [address] [place] [id number] Gestational hypertension without significant proteinuria in third trimester; Endocrine, nutritional and metabolic diseases complicating , third trimester; Hypothyroidism Social History Tobacco Use Types Packs/Day Years Used Date Smoking Tobacco: Never Assessed Alcohol Use Standard Drinks/Week Comments No 0 (1 standard drink = 0.6 oz pur e alcohol) Comments Unknown Sex and Gender Information Value Date Recorded Sex Assigned at Not on file 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[employer] Gender Identity Not on file Sexual Orientation Not on file documented as of this encounter Plan of Treatment Not on file documented as of this encounter Procedures Procedure Name Priority Date/Time Associated Diagnosis Comments DISCHARGE LABORATORY CUMULATIVE REPORT 03/08/2016 SERUM THYROXINE (T4), FREE Routine 03/07/2016 10:58 AM CDT SERUM THYROID-STIMULATING HORMONE (TSH) Routine 03/07/2016 10:58 AM CDT SERUM PHOSPHORUS Routine 03/07/2016 10:5 8 AM CDT SERUM ESTIMATED GLOMERULAR FILTRATION RATE Routine 03/07/2016 10:58 AM CDT SERUM ESTIMATED GLOMERULAR FILTRATION RATE Routine 03/07/2016 10:58 AM CDT SERUM BILIRUBIN, DIRECT Routine 03/07/2016 10:58 AM CDT PLASMA COMPREHENSIVE METABOLIC PANEL Routine 03/07/2016 10:58 AM CDT BLOOD CELL COUNT (CBC) Routine 6 10:58 AM CDT BLOOD CELL MORPHOLOGIC EXAM Routine 03/07/2016 10:58 AM CDT SERUM CREATININE Routine 03/07/2016 5:58 AM CDT URINE VOLUME, TIMED Routine 03/07/2016 3 :00 AM CDT URINE CREATININE CLEARANCE Routine 03/07/2016 3:00 AM CDT URINE PROTEIN, 24 HOUR Routine 6 3:00 AM CDT URINE CREATININE, 24 HOUR Routine 03/07/2016 3:00 AM CDT documented in this encounter Results * DISCHARGE LABORATORY CUMULATIVE REPORT (03/08/2016) Narrative 03/08/2016 Ordered by an unspecified provider. us Historical Provider LAB BLOOD ORDERABLES Areli l Result * Serum estimated glomerular filtration rate (03/07/2016 10:58 AM CDT) eGFR >60 ml/min/1.7 3 m2 CDR HISTORICAL RESULTS Comment: Interpretation of Estimated GFR (eGFR): Normal ?>/= 60 mL/min/1.73m2 Possible Chronic Kidney Disease ??15 - 59 mL/min/1.73m2 Possible Kidney Failure ?< 15 ??mL/min/1.73m2 If -Portuguese multiply value by 1.16. ??Estimated glomerular filtration rate is determined by the CKD-EPI equation recommended by the National Kidney Foundation (KDIGO 2012 Clinical Practice Guideline for the Evaluation and Management of Chronic Kidney Disease. ??Kidney Intnl Suppl Jun 2012;3:1). ??The CKD-EPI equation should not be used in acute renal failure or acute kidney injury and is not valid in children. Serum 03/07/2016 10:5 8 AM CDT Historical Provider LAB BLOOD ORDERABLES Areli l Result Performing Organization Address [facility] de Phone Number CDR HISTORICAL RESULTS * Serum thyroid-stimulating hormone (TSH) (03/07/2016 10:58 AM CDT) TSH 4.93 0.30 - 5.00 mcIUnits/ml CDR HISTORICAL RESULTS Serum 03/07/2016 10:5 8 AM CDT Historical Provider LAB BLOOD ORDERABLES Areli l Result Performing Organization Address [facility] de Phone Number CDR HISTORICAL RESULTS * Serum bilirubin, direct (03/07/2016 10:58 AM CDT) Bilirubin, direct <0.2 0.0 - 0.3 mg/dl CDR HISTORICAL RESULTS Serum 03/07/2016 10:5 8 AM CDT Historical Provider LAB BLOOD ORDERABLES Areli l Result Performing Organization Address [facility] de Phone Number CDR HISTORICAL RESULTS * (ABNORMAL) Plasma comprehensive metabolic panel (03/07/2016 10:58 AM CDT) Sodium 139 135 - 145 mmol/L CDR HISTORICAL RESULTS K, pl 4.4 3.5 - 5.1 mmol/L CDR HISTORICAL RESULTS Chloride 101 97 - 110 mmol/L CDR HISTORICAL RESULTS CO2 24 22 - 32 mmol/L CDR HISTORICAL RESULTS A. gap 18(H) 8 - 16 mmol/L CDR HISTORICAL RESULTS Glucose 122 70 - 199 mg/dl CDR HISTORICAL RESULTS Comment: Interpretive Data Note:The glucose is assumed non fasting Fastin-99 mg/dL Random: ??70-199 mg/dL Either a fasting glucose > 126 mg/dL or a random glucose > 200 mg/dL plus symptoms is diagnostic of diabetes when confirmed on another day. Fasting values > 100 mg/dL but < 125 mg/dL are diagnostic of impaired fasting glucose. Current interpretive data was last revised on 2014. BUN 12.9 8.0 - 25.0 mg/dl CDR HISTORICAL RESULTS Creatinine 0.61 0.60 - 1.10 mg/dl CDR HISTORICAL RESULTS BUN/creat ratio 21(H) 10 - 20 CDR HISTORICAL RESULTS Calcium 9.2 8.6 - 10.2 mg/dl CDR HISTORICAL RESULTS Protein, sr 6.5 6.0 - 8.4 g/dl CDR HISTORICAL RESULTS Alb 3.3(L) 3.6 - 5.0 g/dl CDR HISTORICAL RESULTS Alk phos 135(H) 40 - 130 Units/L CDR HISTORICAL RESULTS ALT 39 5 - 45 Units/L CDR HISTORICAL RESULTS AST 25 10 - 40 Units/L CDR HISTORICAL RESULTS Bilirubin 0.2 <=1.2 mg/dl CDR HISTORICAL RESULTS Plasma 03/07/2016 10:5 8 AM CDT Historical Provider LAB BLOOD ORDERABLES Areli l Result CDR HISTORICAL RESULTS * Serum phosphorus (03/07/2016 10:58 AM CDT) Phosphorus, pl 3.2 2.5 - 4.5 mg/dl CDR HISTORICAL RESULTS Serum 03/07/2016 10:5 8 AM CDT Historical Provider LAB BLOOD ORDERABLES Areli l Result CDR HISTORICAL RESULTS * Serum thyroxine (T4), free (03/07/2016 10:58 AM CDT) Free T4 1.0 0.8 - 1.8 ng/dl CDR HISTORICAL RESULTS Serum 03/07/2016 10:5 8 AM CDT Historical Provider LAB BLOOD ORDERABLES Areli tomlinson Result Performing Organization Address [facility] de Phone Number CDR HISTORICAL RESULTS * (ABNORMAL) Blood cell count (CBC) (03/07/2016 10:58 AM CDT) WBC 8.0 3.8 - 9.8 K/cumm CDR HISTORICAL RESULTS RBC 3.78(L) 3.90 - 5.00 M/cumm CDR HISTORICAL RESULTS Hgb 12.3 12.1 - 15.1 g/dl CDR HISTORICAL RESULTS Hct 36.6 36.1 - 44.3 % CDR HISTORICAL RESULTS MCV 96.8 80.0 - 100.0 fl CDR HISTORICAL RESULTS MCH 32.5 26.7 - 33.7 pg CDR HISTORICAL RESULTS MCHC 33.6 32.7 - 36.0 g/dl CDR HISTORICAL RESULTS Rdw 13.2 11.5 - 14.6 % CDR HISTORICAL RESULTS Platelets 107(L) 140 - 440 K/cumm CDR HISTORICAL RESULTS MPV . 8.0 - 12.0 fl CDR HISTORICAL RESULTS NRBC 0.0 0.0 - 0.0 % CDR HIST ORICAL RESULTS NRBC, abs 0.00 0.00 - 0.00 K/cumm CDR HISTORICAL RESULTS Blood specimen (specimen) 03/07/2016 10:58 AM CDT Historical Provider LAB BLOOD ORDERABLES Areli l Result Performing Organization Address [facility] de Phone Number CDR HISTORICAL RESULTS * Blood cell morphologic exam (03/07/2016 10:58 AM CDT) Neutrophils 71.3 44.0 - 80.0 % CDR HISTORICAL RESULTS Immature granulocytes 0.3 0.0 - 1.0 % CDR HISTORICAL RESULTS Lymphocytes 22.2 13.0 - 44.0 % CDR HISTORICAL RESULTS Monos 5.2 2.0 - 11.0 % CDR HISTORICAL RESULTS Eosinophils 0.6 0.0 - 6.0 % CDR HISTORICAL RESULTS Basophils 0.4 0.0 - 3.0 % CDR HISTORICAL RESULTS Neutrophils, abs 5.7 1.6 - 7.0 K/cumm CDR HISTORICAL RESULTS Immature granulocyte, abs 0.0 0.0 - 0.2 K/cumm CDR HISTORICAL RESULTS Lymphocytes, abs 1.8 0.5 - 4.3 K/cumm CDR HISTORICAL RESULTS Monocytes, absolute 0.4 0.1 - 1.0 K/cumm CDR HISTORICAL RESULTS Eosinophils, abs 0.0 0.0 - 0.6 K/cumm CDR HISTORICAL RESULTS Basophils, abs 0.0 0.0 - 0.3 K/cumm CDR HISTORICAL RESULTS Blood specimen (specimen) 03/07/2016 10:58 AM CDT Historical Provider LAB BLOOD ORDERABLES Areli l Result Performing Organization Address [facility] de Phone Number CDR HISTORICAL RESULTS * Serum estimated glomerular filtration rate (03/07/2016 10:58 AM CDT) eGFR >60 ml/min/1.7 3 m2 CDR HISTORICAL RESULTS Comment: Interpretation of Estimated GFR (eGFR): Normal ?>/= 60 mL/min/1.73m2 Possible Chronic Kidney Disease ??15 - 59 mL/min/1.73m2 Possible Kidney Failure ?< 15 ??mL/min/1.73m2 If -Portuguese multiply value by 1.16. ??Estimated glomerular filtration rate is determined by the CKD-EPI equation recommended by the National Kidney Foundation (KDIGO 2012 Clinical Practice Guideline for the Evaluation and Management of Chronic Kidney Disease. ??Kidney Intnl Suppl Jun 2012;3:1). ??The CKD-EPI equation should not be used in acute renal failure or acute kidney injury and is not valid in children. Serum 03/07/2016 10:5 8 AM CDT Historical Provider LAB BLOOD ORDERABLES Areli l Result Performing Organization Address [facility]/ZIP Co de Phone Number CDR HISTORICAL RESULTS * Serum creatinine (03/07/2016 5:58 AM CDT) Creatinine 0.62 0.60 - 1.10 mg/dl CDR HISTORICAL RESULTS Serum 03/07/2016 5:58 AM CDT Narrative CDR HISTORICAL RESULTS - 03/07/2016 7:28 AM CDT 308LB; 24 HOURS 5FT 8INCH; 24 HOURS 24 HOURS [facility] Provider LAB BLOOD ORDERABLES Areli l Result Performing Organization Address [facility] Phone Number CDR HISTORICAL RESULTS * Urine volume, time (03/07/2016 3:00 AM CDT) Volume, ur 1375 ml CDR HISTO RICAL RESULTS Collection period, ur 1440 minutes CDR HISTORICAL RESULTS Urine 03/07/2016 3:00 AM CDT Narrative CDR HISTORICAL RESULTS - 03/07/2016 7:28 AM CDT Comment Deleted [facility] Provider LAB BLOOD ORDERABLES Areli l Result Performing Organization Address [facility] Phone Number CDR HISTORICAL RESULTS * (ABNORMAL) Urine creatinine clearance (03/07/2016 3:00 AM CDT) Creatinine clearance 197(H) 70 - 150 ml/min CDR HISTORICAL RESULTS Creatinine, 24 hr, ur 1.76(H) 0.70 - 1.60 g/24 hr CDR HISTORICAL RESULTS Urine 03/07/2016 3:00 AM CDT Narrative CDR HISTORICAL RESULTS - 03/07/2016 7:28 AM CDT Comment Deleted [facility] Provider MD LAB BLOOD ORDERABLES Areli l Result Performing Organization Address [facility] Phone Number CDR HISTORICAL RESULTS * (ABNORMAL) Urine creatinine, 24 hour (03/07/2016 3:00 AM CDT) Creatinine, 24 hr, ur 1.76(H) 0.70 - 1.60 g/24 hr CDR HISTORICAL RESULTS Urine 03/07/2016 3:00 AM CDT Narrative CDR HISTORICAL RESULTS - 03/07/2016 7:28 AM CDT Comment Deleted Historical Provider MD LAB BLOOD ORDERABLES Areli l Result Performing Organization Address [facility] de Phone Number CDR HISTORICAL RESULTS * (ABNORMAL) Urine protein, 24 hour (03/07/2016 3:00 AM CDT) Protein, 24 hr, ur 2145.0(H) <=150.0 mg/24 hr CDR HISTORICAL RESULTS Urine 03/07/2016 3:00 AM CDT Narrative CDR HISTORICAL RESULTS - 03/07/2016 7:28 AM CDT Comment Deleted Historical Provider LAB BLOOD ORDERABLES Areli l Result Performing Organization Address [facility] de Phone Number CDR HISTORICAL RESULTS documented in this encounter Visit Diagnoses Diagnosis Gestational hypertension without significant proteinuria in third trimester Endocrine, nutritional and metabolic diseases complicating , third trimester Hypothyroidism Unspecified hypothyroidism documented in this encounter Care Teams Sizer Machine Relationship Specialty Start Date End Date Jeremias Obando DO [address] [facility] [address] PCP - General 10/07/09 04/13/21 documented as of this encounter
--- OUTSIDE RECORDS SUMMARY | 2024-06-26 02:27 | XMS_ITS | Encounter Summary ---
Author Organization [facility] Healthcare Address [address] [place] [address] Care Team Providers Care Compressor Station Operator Name Role Phone Jeremias Obando DO Primary Care Provider +1- [phone] Encounter Details Date Type Department Care Team (Late st Contact Info) Description 03/18/2011 10:58 PM CDT - 03/18/2011 11:59 PM CDT Hospital Encounter [facility] Other specified abnormal findings of blood chemistry Social History Tobacco Use Types Packs/Day Years Used Date Smoking Tobacco: Never Assessed Comments Unknown Sex and Gender Information Value Date Recorded Sex Assigned at Not on file 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
--- OUTSIDE RECORDS SUMMARY | 2024-06-26 02:27 | XMS_ITS | Encounter Summary ---
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
--- OUTSIDE RECORDS SUMMARY | 2024-06-26 02:27 | XMS_ITS | Encounter Summary ---
Author Organization [facility] Healthcare Address [address] [place] [address] Care Team Providers Care Bearing Ring Assembler Name Role Phone Noirs Bob MD Primary Care Provide r Encounter Details Date Type Department Care Team (Latest Contact Info) Description 05/03/2021 3:00 PM CDT - 05/03/2021 11:59 PM CDT Hospital Encounter [facility] [address] [place] [address] Discharge Disposition: Discharge to home or self care Social History Tobacco Use Types Packs/Day Years Used Date Smoking Tobacco: Never Smokeless Tobacco: Never Alcohol Use Standard Drinks/Week Comments No 0 (1 standard drink = 0.6 oz pur e alcohol) Comments No Sex and Gender Information Value Date Recorded Sex Assigned at Not on file 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 Gender Identity Not on file Sexual Orientation [...] total) by mouth daily 30 tablet 05/10/2021 penicillin v potassium (VEETID) 500 mg tablet Take 500 mg by mouth 2 (two) times a day 04/08/2021 documented as of this encounter Discharge Disposition Disposition Code Departure Means Destination Discharge to home or self care documented in this encounter Plan of Treatment Not on file documented as of this encounter Procedures Procedure Name Priority Date/Time Associated Diagnosis Comments XR CHEST 1 VIEW IP Routine 05/03/2021 3:19 PM CDT documented in this encounter Results * XR Chest 1 Vw Portable (05/03/2021 [...] INFILTRATES. Electronically signed by: Silviano Whitehead M.D. Flavio العلي MD IMG XR PROCEDURES Final Result documented in this encounter Visit Diagnoses Not on filedocumented in this encounter Additional Health Concerns Infection Onset Date Last Indicated Resolved Time COVID19 Comment:+04/08/21 Tested @ [facility]. [facility] 04/08/2021 04/14/2021 05/25/2021 3:[address] documented as of this encounter Care Teams Bearing Ring Assembler Relationship Specialty Start Date End Date Noris Bob MD [address] [place] [address] PCP - General 04/14/21 documented as of this encounter
--- OUTSIDE RECORDS SUMMARY | 2024-06-26 02:27 | XMS_ITS | Encounter Summary ---
Author Organization [facility] Healthcare Address [address] [place] [address] Care Team Providers Care Associate Property Manager Name Role Phone Jeremias Obando DO Primary Care Provider +1- [phone] Encounter Details Date Type Department Care Team (Late st Contact Info) Description 01/07/2016 10:55 AM CDT - 01/07/2016 11:59 PM CDT Hospital Encounter [facility] Ragini Cline MD [address] [address] Dietary counseling and surveillance; Gestational diabetes mellitus in ; Weeks of gestation of not specified Social History Tobacco Use Types Packs/Day Years Used Date Smoking Tobacco: Never Assessed Alcohol Use Standard Drinks/Week Comments No 0 (1 standard drink = 0.6 oz pur e alcohol) Comments Unknown Sex and Gender Information Value Date Recorded Sex Assigned at Not on file 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
--- OUTSIDE RECORDS SUMMARY | 2024-06-26 02:27 | XMS_ITS | Encounter Summary ---
Author Organization [facility] Healthcare Address [address] [place] [address] Care Team Providers Care Administrative Coordinator Name Role Phone Noris Bob MD Primary Care Provide r Encounter Details Date Type Department Care Team (Latest Contact Info) Description 04/14/2021 10:47 AM CDT - 04/14/2021 11:59 PM CDT Hospital Encounter [facility] [address] [place] [address] Discharge Disposition: Discharge to home or self care Social History Tobacco Use Types Packs/Day Years Used Date Smoking Tobacco: Never Smokeless Tobacco: Never Alcohol Use Standard Drinks/Week Comments No 0 (1 standard drink = 0.6 oz pur e alcohol) Comments No Sex and Gender Information Value Date Recorded Sex Assigned at Not on file 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 [facility] 04/08/2021 04/14/2021 05/25/2021 3:[address] documented as of this encounter Care Teams Administrative Coordinator Relationship Specialty Start Date End Date Noris Bob MD [address] [place] [address] PCP - General 04/14/21 documented as of this encounter
--- OUTSIDE RECORDS SUMMARY | 2024-06-26 02:27 | XMS_ITS | Encounter Summary ---
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
== END 2024-06-19 01:41 | disposition home or self-care (01) ==
PROVIDERS: Physician Assistant; Emergency Provider Emergency Medicine; PCP Internal Medicine
DX: N93.9 Abnormal uterine and vaginal bleeding, unspecified (principal); E03.9 Hypothyroidism, unspecified
CPT/HCPCS: 36415; 80053; 81025; 85025; 85610; 85730; 99283

== ENCOUNTER 2024-07-20 08:13 | Outpatient (CLI) | payer OTHER, SELFPAY ==
--- NOTE | ~2024-07-20 | US_ITS ---
EXAMINATION: US transvaginal DATE: 07/20/2024 08:34 INDICATION: Abnormal uterine bleeding. TECHNIQUE: Multiple transvaginal sonographic images of the pelvis were obtained. COMPARISON: None. FINDINGS: The uterus measures 8.4 x 5.5 x 6.1 cm. There is no free fluid in the pelvis. The endometrial complex measures 7 mm in thickness. The right ovary measures 1.4 x 1.6 x 1.5 cm. The left ovary is not visua lized. IMPRESSION: 1. Normal uterus. Reviewed, dictated and finalized at location B. PLE SKIDDER OPERATOR IMPRESSION: 1. Normal uterus.
== END 2024-07-20 08:14 | disposition home or self-care (01) ==
LOC: MICIMG 08:14
PROVIDERS: PCP Internal Medicine; Visit Provider Nurse Practitioner Women's Health
DX: N93.8 Other specified abnormal uterine and vaginal bleeding (principal)
CPT/HCPCS: 76830

== ENCOUNTER 2024-12-22 09:25 | Day surgery (SDC) | payer OTHER, SELFPAY ==
[2024-12-04 15:10] VITALS: BMI 44.1
[2024-12-22 09:57] VITALS: BP 170/98; PULSE 81; RESP 16; TEMP 36.8; O2SAT 98; BMI 43.3
[2024-12-22] MEDS: LACTATED RINGERS 1,000 ML 150 ML IV CONT (10:10)
[2024-12-22 10:11] LABS: Glucose Point of Care 144 mg/dl (65-105)
--- NOTE | 2024-12-22 10:14 | PM.IMHP ---
H&P: HPI History of Present Illness Date/Time: 12/22/24 10:14 Chief Complaint: Screening colonoscopy Narrative: This is the patient's first colonoscopy. There are no GI symptoms and there is no family history of colorectal cancer. Review of Systems Review of Systems: All systems reviewed & are unremarkable except as noted in HPI and below PMFSH Past Medical History Medical History (Updated 06/20/24 @ 00:01 by Lazaro Henderson) Hypothyroidism (acquired) Allergies Surgical History Surgical History (Updated 08/23/24 @ 14:42 by Ragini Hayes [facility]) H/O eye surgery History of Family History Family History Father Diabetes mellitus Hypertension Mother Cerebrovascular accident Son Undescended testes Social History Social History Smoking status: Never smoker Second hand tobacco smoke exposure: No Alcohol intake: never Substance use: never Substance use type: does not use Do You Feel Safe in your Home?: Yes Lack of Transportation: No Lack of Food: Never True Current Housing: I Have Housing Concerned About Future Housing: No Difficulty Paying Gas/Electric Bills: No Difficulty Paying for Meds: No Currently Unemployed: No Education: High School Diploma/GED Difficulty w/ Childcare or Family Care: No Living arrangements: with family Spiritual care concerns: No Meds Home Medications and Allergies Home Medications ?Medication ?Instructions ?Recorded ?Confirmed ?Type cetirizine 10 mg tablet (Zyrtec) 10 mg PO DAILY PRN allergy symptoms 08/19/22 12/22/24 History oxymetazoline 0.05 % nasal mist 2 spray intranasal Q12H PRN nasal 01/29/23 12/04/24 Rx (Afrin (oxymetazoline)) congestion 5 days #15 mL sodium chloride 0.65 % nasal spray 2 spray intranasal TID PRN dry 01/29/23 12/04/24 Rx aerosol (Saline Mist) nasal passages 5 days #45 mL lactase 3,000 unit tablet (Lactaid) 3,000 unit PO ONCE PRN lactose 03/31/23 12/04/24 History intolerance blood-glucose meter (Accu-Chek #1 ea 09/27/23 08/23/24 Rx Guide Glucose Meter) cholecalciferol (vitamin D3) 125 125 mcg PO DAILY #90 caps 05/01/24 12/22/24 Rx mcg (5,000 unit) capsule azelastine 205.5 mcg (0.15 %) 1 spray intranasal QHS 08/23/24 12/04/24 History nasal spray (Astepro Allergy) metformin 1,000 mg tablet 1,000 mg PO BID #180 tabs 08/23/24 12/22/24 Rx norethindrone 1 mg-ethinyl 1 tablet PO DAILY 08/23/24 12/22/24 History estradiol 10 mcg (24)-iron 10 mcg(2) tablet (Lo Loestrin Fe) semaglutide 14 mg tablet (Rybelsus) 14 mg PO DAILY #90 tabs 08/23/24 12/22/24 Rx levothyroxine 75 mcg tablet 75 mcg PO DAILY #90 tabs 09/18/24 12/22/24 Rx atorvastatin 10 mg tablet See Rx Instructions .Route 10/30/24 12/22/24 Rx .COMPLEX #90 tabs Allergies Allergy/AdvReac Type Severity Reaction Status Date / Time No Known Allergies Allergy Verified 12/22/24 09:55 Vital Signs Vital Signs - 24 hr 12/22/24 09:57 Temperature 98.2 F Pulse Rate 81 Respiratory Rate 16 Blood Pressure 170/98 H Pulse Oximetry 98 Oxygen Delivery Room Air Exam Const: General: cooperative and healthy appearing Resp: Effort & Inspection: normal respiratory effort and able to speak in complete sentences Auscultation: clear to auscultation bilaterally Cardio: Rate: regular rate Rhythm: regular rhythm GI: Inspection: normal to inspection GI Palp: No No hepatosplenomegaly present Auscultation: normal bowel sounds Rectal Exam: deferred Skin: General skin exam: normal color Psych: Appearance: grossly normal Mental Status: mental status grossly normal Assessment and Plan Assessment and plan (1) Screening for colon cancer: Code(s): Z12.11 - Encounter for screening for malignant neoplasm of colon Status: Acute Assessment and Plan: The patient is deemed a good candidate for the procedure. Consent signed. Will proceed.
--- NOTE | 2024-12-22 10:14 | WPDANESEPPF ---
Anes - Initial Pre Proc Eval Procedure: Operation Date: 12/22/24 11:00 Proposed Procedures p Screening Colonoscopy - John Baird MD Date/Time: 12/22/24 10:14 Surgeon: John Baird MD Pre Op Diagnosis: Screening Patient Data Age: 49 Gender: F Height: 1.73 m Weight: 129.3 kg Last Vital Signs Temp 98.2 F 12/22/24 09:57 Pulse 81 12/22/24 09:57 Resp 16 12/22/24 09:57 BP 170/98 H 12/22/24 09:57 Pulse Ox 98 12/22/24 09:57 O2 Del Method Room Air 12/22/24 09:57 Allergies Allergy/AdvReac Type Severity Reaction Status Date / Time No Known Allergies Allergy Verified 12/22/24 09:55 Home Medications ?Medication ?Instructions ?Recorded ?Confirmed ?Type cetirizine 10 mg tablet (Zyrtec) 10 mg PO DAILY PRN allergy symptoms 08/19/22 12/22/24 History oxymetazoline 0.05 % nasal mist 2 spray intranasal Q12H PRN nasal 01/29/23 12/04/24 Rx (Afrin (oxymetazoline)) congestion 5 days #15 mL sodium chloride 0.65 % nasal spray 2 spray intranasal TID PRN dry 01/29/23 12/04/24 Rx aerosol (Saline Mist) nasal passages 5 days #45 mL lactase 3,000 unit tablet (Lactaid) 3,000 unit PO ONCE PRN lactose 03/31/23 12/04/24 History intolerance blood-glucose meter (Accu-Chek #1 ea 09/27/23 08/23/24 Rx Guide Glucose Meter) cholecalciferol (vitamin D3) 125 125 mcg PO DAILY #90 caps 05/01/24 12/22/24 Rx mcg (5,000 unit) capsule azelastine 205.5 mcg (0.15 %) 1 spray intranasal QHS 08/23/24 12/04/24 History nasal spray (Astepro Allergy) metformin 1,000 mg tablet 1,000 mg PO BID #180 tabs 08/23/24 12/22/24 Rx norethindrone 1 mg-ethinyl 1 tablet PO DAILY 08/23/24 12/22/24 History estradiol 10 mcg (24)-iron 10 mcg(2) tablet (Lo Loestrin Fe) semaglutide 14 mg tablet (Rybelsus) 14 mg PO DAILY #90 tabs 08/23/24 12/22/24 Rx levothyroxine 75 mcg tablet 75 mcg PO DAILY #90 tabs 09/18/24 12/22/24 Rx atorvastatin 10 mg tablet See Rx Instructions .Route 10/30/24 12/22/24 Rx .COMPLEX #90 tabs Laboratory Tests 12/22/24 10:04 POC Capillary Glucose 144 H mg/dl (65-105) Patient hx anesthesia problems: none Family hx anesthesia problems: none Results Review: All pre-operative results and documents have been reviewed as part of the pre-operative evaluation. [facility] Past Medical History Medical History Asthma Morbid obesity with BMI of 40.0-44.9, adult Hypothyroidism (acquired) Allergies Surgical History Surgical History H/O eye surgery History of Family History Family History Father Diabetes mellitus Hypertension Mother Cerebrovascular accident Son Undescended testes Social History Social History Smoking status: Never smoker Second hand tobacco smoke exposure: No Alcohol intake: never Substance use: never Substance use type: does not use Do You Feel Safe in your Home?: Yes Lack of Transportation: No Lack of Food: Never True Current Housing: I Have Housing Concerned About Future Housing: No Difficulty Paying Gas/Electric Bills: No Difficulty Paying for Meds: No Currently Unemployed: No Education: High School Diploma/GED Difficulty w/ Childcare or Family Care: No Living arrangements: with family Spiritual care concerns: No Anes - Eval Final PreProcedure Day of Procedure 12/22/24 10:14 Patient weight: morbidly obese Heart: regular rate and rhythm Lungs: decreased breath sounds Airway: Mallampati scale class III Neurological: alert and oriented Last oral intake: >/= 8 hours ASA classification: III Emergent: no Anesthetic plan: proceed Anesthesia type and monitoring: general GIVS and standard monitoring Results Review: All pre-operative results and documents have been reviewed as part of the pre-operative evaluation. Informed Consent: The patient's anesthetic plan and its attendant risks and benefits were discussed with the patient/family/POA. Questions were solicited and answers provided to the satisfaction of the patient/family/POA.
[2024-12-22 10:15] LABS: BEDSIDEPREGUCG Negative (Negative)
--- NOTE | 2024-12-22 10:37 | P.PNAN_ITS ---
Anes - Eval Final PreProcedure Day of Procedure 12/22/24 10:37 Patient weight: morbidly obese Heart: regular rate and rhythm Lungs: clear to auscultation ASA classification: III Emergent: no Anesthetic plan: proceed Anesthesia type and monitoring: general GIVS and standard monitoring Other findings: exam per ELIJAH Results Review: All pre-operative results and documents have been reviewed as part of the pre- operative evaluation. Informed Consent: The patient's anesthetic plan and its attendant risks and benefits were discussed with the patient/family/POA. Questions were solicited and answers provided to the satisfaction of the patient/family/POA.
--- NOTE | 2024-12-22 10:46 | S_PTH ---
PATIENT: Shaina Huynh LOC: [facility] U#:[id number] AGE/SX: 49/F ROOM: RE12/22/[address]: John Baird MD : 1975 BED: DIS: 12/22/2024 SPEC #: [id number] RECD: 12/22/24 13:21 STATUS: VEDA REQ #: [id number] SHARON: 12/22/24 10:[address]: John Baird DEPT: [facility] Surgical RECD BY: Gloria Asencio ENTERED: 12/22/24 13:22 SP TYPE: Surgical OTHR DR: Eyad Roca, Tissues: A - Colon Polypectomy B - Colon Polypectomy C - Colon Polypectomy D - Colon Polypectomy Procedures: Hematoxylin and Eosin Stain Gross and Microscopic Level 4
[2024-12-22 10:48] VITALS: BP 125/78; PULSE 89; RESP 26; O2SAT 95
[2024-12-22 10:58] VITALS: BP 117/70; PULSE 90; RESP 25; O2SAT 95
[2024-12-22 11:08] VITALS: BP 137/85; PULSE 74; RESP 24; O2SAT 98
== END 2024-12-22 11:26 | disposition home or self-care (01) ==
PROVIDERS: Anesthesiology; PCP Internal Medicine; Referring Provider Nurse Practitioner; Visit Provider Internal Medicine Gastroenterology
PROC: 0DJD8ZZ Inspection of Lower Intestinal Tract, Via Natural or Artificial Opening Endoscopic (ICD-10-PCS; CPT 45378; principal; 2024-12-22 11:00)
DX: Z12.11 Encounter for screening for malignant neoplasm of colon (principal); D12.0 Benign neoplasm of cecum; D12.2 Benign neoplasm of ascending colon; D12.5 Benign neoplasm of sigmoid colon; E66.01 Morbid (severe) obesity due to excess calories; Z68.41 Body mass index [BMI] 40.0-44.9, adult; Z79.84 Long term (current) use of oral hypoglycemic drugs
CPT/HCPCS: 45385; 82948; 88305; J2003; J2704; J7120

== ENCOUNTER 2025-06-04 10:17 | Outpatient (CLI) | payer OTHER, SELFPAY ==
--- NOTE | ~2025-06-04 | MM_ITS ---
EXAMINATION: MM screening cherelle BI w oral HISTORY: Screening. TECHNIQUE: Craniocaudal and mediolateral oblique 3-D tomosynthesis images were obtained and synthetic 2-D images were generated. CAD analysis was submitted and interpreted. COMPARISON: 2023 and 2022. BREAST PARENCHYMAL COMPOSITION: Not Dense: There are scattered areas of fibroglandular FINDINGS: No suspicious masses are seen. There are no suspicious calcifications. No unexplained architectural distortion is seen. There are no skin or nipple abnormalities identified. There is no adenopathy seen on the images submitted. IMPRESSION: No mammographic evidence to suggest malignancy is seen. The patient may return to screening mammography as per ACR guidelines. BI-RADS 1 - Negative. Reviewed, dictated and finalized at location [facility]
== END 2025-06-04 10:18 | disposition home or self-care (01) ==
LOC: ANHFOHIMG 10:19
PROVIDERS: PCP Internal Medicine; Visit Provider Nurse Practitioner Women's Health
DX: Z12.31 Encounter for screening mammogram for malignant neoplasm of breast (principal)
CPT/HCPCS: 77063; 77067